=== PATIENT | male | born 1965 | race Caucasian/White ===

== ENCOUNTER 2018-07-23 07:53 | Day surgery (SDC) | payer MEDICARE ==
[~2018-07-23] VITALS: Ht 193 cm; Wt 139.3 kg
[2018-07-23] VITALS (12 sets, daily range): BP systolic 110–170; BP diastolic 57–83
[~2018-07-23 07:53] MED LIST: ALBUTEROL INH; ASP325T PO; ASP325TEC PO; ATOR40TA PO; ATOR80TA2 PO; BPR100T PO; BUDE6HFA IH; CLPD75T; CRV25T PO; CYCL-97 PO; DULO60CA6; DULO60CA6 PO; ESCI20TA2 PO; EZET10TA5 PO; EZET1TAB16; FLUT1DIS26 IH; FURO20TA4 PO; FURO40TA4 PO; GBPN300C PO; GLUC1KIT4 IJ; HYDR-229; INSASP10V; INSU1CAR; KCL20TCR PO; LEVO25TA45 PO; LNS30CCR PO; MELO-195 PO; MELO7.5T PO; METF-380; METO10TA3 PO; MORP30TA28 PO; MS15TCR PO; NOVALOG PUMP SQ; NTR.4SL SL; OXYC-272 PO; POTA10TA36 PO; POTA20TA7 PO; RAMI10CA PO; RAMI10TA PO; RANO10003 PO; RISP1TAB2 PO; RMP5C PO; TRAM200T PO; ZLP10T PO; ZOLP5TAB6 PO
[2018-07-23] MEDS ORDERED: NS IV 1000 ML 1,000 ML ONE (08:08)
[2018-07-23] MEDS ORDERED: LIDOCAINE 1% INJ 20 ML 20 ML VIAL ONE (08:08)
[2018-07-23] MEDS ORDERED: HEParin (CATH LAB) 2,000 ML IV ONE (08:08)
[2018-07-23] MEDS ORDERED: NS IV 1000 ML 1,000 ML IV SCH ×2 (08:16→12:01)
[2018-07-23 08:34] LABS: HEMOGLOBIN 13.9 G/DL (13.3-17.7); MEAN PLATELET VOLUME 9.2 FL (7.4-10.4); RED BLOOD COUNT 4.64 10^6/uL (4.35-5.85); RED CELL DISTRIBUTION WIDTH 13.5 % (10.0-14.5); WHITE BLOOD COUNT 8.6 10^3/uL (4.3-11.0)
--- NOTE | 2018-07-23 08:44 | Diagnostic Imaging Report ---
Indication: Pre-heart catheterization. Time of exam 8:31 AM Correlation is made with prior chest from 10/27/2014. Changes of median sternotomy and CABG are noted. The heart size is stable. Lungs appear to be clear. No infiltrate or failure is seen. No effusion or pneumothorax is detected. Impression: No acute cardiopulmonary process is detected. Dictated by: Dictated on workstation # [id number]
[2018-07-23 08:46] LABS: PROTHROMBIN TIME PATIENT 13.6 SEC (12.2-14.7)
[2018-07-23 08:55] LABS: ALANINE AMINOTRANSFERASE 15 U/L (0-55); ALBUMIN 3.9 GM/DL (3.2-4.5); ALKALINE PHOSPHATASE 60 U/L (40-136); BILIRUBIN,TOTAL 0.5 MG/DL (0.1-1.0); BUN/CREATININE RATIO 17; CALCIUM 8.8 MG/DL (8.5-10.1); CARBON DIOXIDE 27 MMOL/L (21-32); CHLORIDE 108 MMOL/L (98-107); CHOLESTEROL 101 MG/DL (< 200); CREATININE SERUM 0.96 MG/DL (0.60-1.30); GFR ESTIMATED > 60; HDL CHOLESTEROL 35 MG/DL (40-60); POTASSIUM 3.9 MMOL/L (3.6-5.0); SODIUM 143 MMOL/L (135-145); TOTAL PROTEIN 6.9 GM/DL (6.4-8.2); TRIGLYCERIDES 64 MG/DL (<150); VLDL CHOLESTEROL 13 MG/DL (5-40)
[2018-07-23 09:06] LABS: GLUCOSE 50 MG/DL (70-105)
[2018-07-23] MEDS ORDERED: PREG100C PO (09:21)
[2018-07-23] MEDS ORDERED: ZOLP10TA5 PO (09:22)
[2018-07-23] MEDS ORDERED: METO10TA3 PO (09:22)
[2018-07-23] MEDS ORDERED: METO-387 PO (09:23)
[2018-07-23] MEDS ORDERED: LEVO50TA6 PO (09:23)
[2018-07-23] MEDS ORDERED: PANT40TA3 PO (09:24)
[2018-07-23] MEDS ORDERED: VENL37.57 PO (09:24)
[2018-07-23] MEDS ORDERED: LOSA25TA41 PO (09:25)
--- NOTE | 2018-07-23 09:30 | NUR ---
Pts glucose was noted to be 50. Dr. Linares was informed and order to give patient PO juice. Pt was given juice and I will recheck Blood Glucose in 30 mins.
--- OUTSIDE RECORDS SUMMARY | 2018-07-23 09:35 | XMS REPORT ---
Author Author Maribel Vieira [facility] Address [address] [address] [place], [place] [id number] Care Team Providers Care Pigment Processor Name Role Phone Maribel Vieira PCP Elias Malagon Unavailable Unavailable Deborah Linares Unavailable Unavailable Allergies and Adverse Reactions Name Reaction Notes PENICILLINS Plan of Treatment Planned Activity Comments Planned Date Planned Time Plan/Goal Lipid profile 09/06/2015 12:00 AM GENERAL HEALTH PANEL 09/06/2015 12:00 AM PSA TOTAL 09/06/2015 12:00 AM MICROALBUMIN UR RANDOM 07/24/2017 12:00 AM CPK. 07/18/2018 12:00 AM T1DM - insulin pump -current provider retiring needing new provider T1DM - foot exam Medications Active Name Start Date Estimated Completion Date SIG Comments Zetia 10 mg oral tablet take 1 tablet (10 mg) by oral route once daily Neurontin 300 mg oral capsule 10/04/2014 TAKE 2 CAPSULES (600 MG) BY ORAL ROUTE 3 TIMES PER DAY FOR 30 DAYS Neurontin 300 mg oral capsule 03/08/2015 TAKE 2 CAPSULES (600 MG) BY ORAL ROUTE 3 TIMES PER DAY FOR 30 DAYS cyclobenzaprine 10 mg oral tablet 05/10/2015 TAKE 1 TAB BY MOUTH EVERY 8 HOURS NEEDED FOR SPASM. FOR 30 DAYS Ranexa 1,000 mg oral tablet extended release 12 hr 02/01/2016 take 1 tablet (1,000 mg) by oral route 2 times per day ramipril 10 mg oral capsule 02/01/2016 take 1 capsule (10 mg) by oral route once daily ramipril 10 mg oral capsule 05/10/2016 take 1 capsule (10 mg) by oral route once daily ramipril 10 mg oral capsule 07/30/2016 TAKE 1 CAPSULE BY MOUTH ONCE A DAY Protonix 40 mg oral tablet,delayed release (DR/EC) 07/30/2016 take 1 tablet (40 mg) by oral route once daily for 90 days albuterol sulfate 2.5 mg /3 mL (0.083 %) inhalation solution for nebulization 09/28/2016 inhale 3 milliliters (2.5 mg) by nebulization route 4 times per day as needed Voltaren 1 % topical gel 08/07/2017 apply 2 gram to the affected area(s) by topical route 4 times per day Toprol XL 25 mg oral tablet extended release 24 hr take 1 tablet (25 mg ) by oral route once daily Ranexa 1,000 mg oral tablet extended release 12 hr 11/29/2017 TAKE 1 TABLET BY MOUTH TWO TIMES A DAY venlafaxine 37.5 mg oral tablet extended release 24hr 11/29/2017 take 1 tablet (37.5 mg) by oral route once daily in the morning at the same time each day with food levothyroxine 50 mcg oral tablet 02/21/2018 TAKE 1 TABLET BY MOUTH ONCE A DAY atorvastatin 80 mg oral tablet 02/21/2018 TAKE 1 TABLET BY MOUTH ONCE A DAY IN THE EVENING bupropion HCl 100 mg oral tablet 02/24/2018 Take 2 tablets (200 mg) po q am and 1 tablet (100 mg) po q evening furosemide 40 mg oral tablet 02/24/2018 02/19/2019 take 1 tablet (40 mg) by oral route once daily for 90 days furosemide 20 mg oral tablet 02/24/2018 05/20/2019 take 1 tablet (20 mg) by oral route once daily for 90 days metoclopramide HCl 10 mg oral tablet 02/24/2018 Take one tablet po twice BID (am and pm) pantoprazole 40 mg oral tablet,delayed release (DR/EC) 04/18/2018 TAKE 1 TABLET BY MOUTH ONCE A DAY potassium chloride 10 mEq oral tablet extended release 04/18/2018 TAKE 2 TABLETS DAILY IN THE MORNING AND 1 TABLET IN THE EVENING Novolog U-100 Insulin aspart 100 unit/mL subcutaneous solution 04/18/2018 INJECT 160 UNITS DAILY DXE11.43. Ambien 10 mg oral tablet 05/19/2018 take 1 tablet (10 mg) by oral route once daily at bedtime Lyrica 100 mg oral capsule 05/19/2018 08/17/2018 take 1 capsule (100 mg) by oral route 3 times per day for 30 days Percocet 10-325 mg oral tablet 07/09/2018 08/08/2018 take 1 tablet by oral route every 6 hours as needed for 30 days ProAir HFA 90 mcg/actuation inhalation HFA aerosol inhaler 07/09/2018 INHALE 1 - 2 PUFFS BY INHALATION ROUTE EVERY 4-6 HOURS NEEDED Symbicort 160-4.5 mcg/actuation inhalation HFA aerosol inhaler 07/09/2018 INHALE 2 PUFFS TWO TIMES A DAY IN THE MORNING AND IN THE EVENING Name Start Date Expiration Date SIG Comments Neurontin 300 mg oral capsule 03/11/2014 08/08/2014 take 2 capsules (600 mg) by oral route 3 times per day for 30 days cyclobenzaprine 10 mg oral tablet 05/06/2014 11/02/2014 TAKE 1 TAB BY MOUTH EVERY 8 HOURS NEEDED FOR SPASM. for 30 days Voltaren 1 % topical gel 12/23/2014 apply 2 gram to the affected area(s) by topical route 4 times per day Synvisc-One 48 mg/6 mL intra-articular syringe 02/24/2015 inject 6 milliliters by intra-articular route into the left knee Neurontin 300 mg oral capsule 07/04/2015 TAKE 2 CAPSULES (600 MG) BY ORAL ROUTE 3 TIMES PER DAY FOR 30 DAYS cyclobenzaprine 10 mg oral tablet 08/03/2015 TAKE 1 TABLET BY MOUTH EVERY 8 HOURS NEEDED FOR SPASM duloxetine 60 mg oral capsule,delayed release(DR/EC) 10/28/2015 TAKE 1 CAPSULE (60 MG) BY MOUTH 2 TIMES DAILY PATIENT NEEDS TO ESTABLISH WITH NEW PCP BEFORE NEXT REFILL. (06/16/15). Protonix 40 mg oral tablet,delayed release (DR/EC) 11/09/2015 08/05/2016 take 1 tablet (40 mg) by oral route once daily for 90 days doxycycline monohydrate 100 mg oral tablet 06/06/2016 06/13/2016 take 1 tablet by oral route 2 times a day for 7 days doxycycline monohydrate 100 mg oral tablet 09/26/2016 10/03/2016 take 1 tablet by oral route 2 times a day for 7 days prednisone 20 mg oral tablet 09/28/2016 10/03/2016 take 2 tablets (40 mg) by oral route once daily for 5 days Aspirin 325 mg Oral Tablet 05/07/2017 take 1 tablet (325 mg) by oral route once daily aspirin 325 mg oral tablet,delayed release (DR/EC) 05/10/2017 07/09/2017 TAKE 1 TABLET BY MOUTH ONCE A DAY risperidone 0.5 mg oral tablet 05/28/2017 WEAN by 0.5 mg weekly - called to [facility] potassium chloride 10 mEq oral tablet extended release 05/28/2017 05/28/2017 Take 2 tablets daily in the morning and 1 tablet in the evening levothyroxine 50 mcg oral tablet 06/27/2017 09/19/2017 TAKE 1 TABLET BY MOUTH ONCE A DAY Ranexa 1,000 mg oral tablet extended release 12 hr 06/28/2017 12/13/2017 TAKE 1 TABLET BY MOUTH TWO TIMES A DAY doxycycline hyclate 100 mg oral capsule 07/03/2017 take 1 capsule by oral route 2 times a day for 7 days Tamiflu 75 mg oral capsule 07/31/2017 take 1 capsule (75 mg) by oral route 2 times per day for 5 days Tessalon Perles 100 mg oral capsule 08/01/2017 08/01/2017 take 1 capsule (100 mg ) by oral route 3 times per day as needed for cough cephalexin 500 mg oral capsule 12/03/2017 12/10/2017 take 1 capsule (500 mg) by oral route every 12 hours for 7 days Nitrostat 0.4 mg sublingual tablet, sublingual 07/09/2018 07/10/2018 place 1 tablet (0.4 mg) by buccal route at the first sign of an attack; no more than 3 tabs are recommended within a 15 minute period. for 1 day doxycycline monohydrate 100 mg oral capsule 07/09/2018 07/16/2018 take 1 capsule (100 mg) by oral route 2 times per day for 7 days Discontinued Name Start Date Discontinued Date SIG Comments Flexeril 10 mg oral tablet 06/04/2013 take 1 tablet (10 mg) by oral route 3 times per day /PRN Ambien 10 mg oral tablet 08/27/2013 take 1 tablet (10 mg) by oral route once daily at bedtime Lortab 10-500 mg oral tablet 10/09/2012 take 1 tablet by oral route every 6 hours as needed for pain Ultram ER 200 mg oral tablet extended release 24 hr 08/27/2013 take 1 tablet (200 mg) by oral route once daily meloxicam 7.5 mg oral tablet 12/23/2014 take 1 tablet (7.5 mg) by oral route once daily Lasix 20 mg oral tablet 08/27/2013 take 1 tablet (20 mg) by oral route once daily Vytorin 10-80 10-80 mg oral tablet 10/09/2012 take 1 tablet by oral route once daily Altace 5 mg oral capsule 10/09/2012 take 1 capsule (5 mg) by oral route once daily potassium chloride 20 mEq oral tablet,ER particles/crystals 08/27/2013 take 1 tablet (20 meq) by oral route once daily with food Plavix 75 mg oral tablet 10/09/2012 take 1 tablet (75 mg) by oral route once daily MS Contin 30 mg oral tablet extended release 10/28/2014 11/25/2014 take 1 tablet (30 mg) by oral route every 12 hours for 30 days dose decreased gabapentin 300 mg oral capsule 08/11/2015 10/03/2015 TAKE 2 CAPSULES BY MOUTH THREE TIMES DAILY Lasix 20 mg oral tablet 12/07/2015 Take one po q d with the 40 mg tablet for a 60 mg daily dose morphine 30 mg oral tablet extended release 10/19/2015 11/14/2015 take 1 tablet by oral route daily for 30 days at lunch Prevacid 30 mg oral capsule,delayed release(DR/EC) 10/31/2015 11/09/2015 take 1 capsule (30 mg) by oral route once daily before a meal for 90 days morphine 15 mg oral tablet extended release 01/11/2016 02/08/2016 take 1 tablet by oral route daily for 30 days fluticasone 50 mcg/actuation nasal spray,suspension 06/06/2016 04/16/2018 inhale 2 sprays (100 mcg) in each nostril by intranasal route once daily Not taking Synvisc-One 48 mg/6 mL intra-articular syringe 10/01/2016 11/21/2016 inject 6 milliliters by intra-articular route once ramipril 10 mg oral capsule 12/12/2016 01/27/2017 TAKE 1 CAPSULE BY MOUTH ONCE A DAY ACEI cough Ambien 10 mg oral tablet 04/08/2017 05/21/2017 take 1 tablet (10 mg) by oral route once daily at bedtime (for male) for 30 days risperidone 1 mg oral tablet 05/07/2017 05/28/2017 take 2 tablets by oral route daily for 60 days risperidone 2 mg oral tablet 05/10/2017 05/28/2017 TAKE 1 TABLET BY MOUTH ONCE A DAY AT BEDTIME Cymbalta 30 mg oral capsule,delayed release(DR/EC) 06/26/2017 09/11/2017 take 2 capsules (60 mg) by oral route once daily and taper as instructed switch to effexor carvedilol 12.5 mg oral tablet 07/23/2017 11/07/2017 TAKE 1 TABLET (12.5 MG) BY ORAL ROUTE 2 TIMES PER DAY WITH FOOD Ambien 10 mg oral tablet 09/05/2017 09/11/2017 take 1 tablet (10 mg) by oral route once daily at bedtime (for male) Problem List Description Status Onset Congestive Heart Failure Active Depression with Anxiety Active Hypertension Active Insomnia Active Arthritis unspecified Active GERD Active cervical neck pain Active Cervical Radiculopathy Active 01/14/2014 Postlaminectomy syndrome of lumbar region Active 01/14/2014 Sacroiliac joint dysfunction Active 10/06/2014 Radiculopathy, lumbar region Active 04/25/2015 Acquired hypothyroidism Active 09/01/2015 Hyperlipidemia Active 09/01/2015 Type 1 diabetes mellitus with complications Active age 14 Chronic back pain Active 09/01/2015 Chronic kidney disease, stage 3 (moderate) Active Chronic coughing Active 01/27/2017 Diabetic neuropathy associated with type 1 diabetes mellitus Active 07/18/2017 Depression, unspecified depression type Active 07/18/2017 Current every day smoker Active 07/18/2017 COPD (chronic obstructive pulmonary disease) Active 07/18/2017 Cervical pain Active 04/16/2018 Hemiparesis of right dominant side, unspecified hemiparesis etiology Active Vital Signs Date Time BP-Sys(mm[Hg] BP-Ellie(mm[Hg]) HR(bpm) RR(rpm) Temp WT HT HC BMI BSA BMI Percentile O2 Sat(%) 07/09/2018 1:29:00 PM 116 mmHg 70 mmHg 68 bpm 14 rpm 96.8 F 307.75 lbs 97 % 05/14/2018 1:12:00 PM 140 mmHg 82 mmHg 68 bpm 18 rpm 96.8 F 312.75 lbs 76 in 38.0687 kg/m 2.7581 m 97 % 04/16/2018 1:31:00 PM 132 mmHg 64 mmHg 68 bpm 20 rpm 97.7 F 312 lbs 76 in 37.98 kg/m2 2.75 m2 96 % 02/19/2018 1:22:00 PM 140 mmHg 72 mmHg 76 bpm 18 rpm 98.1 F 308.5 lbs 76 in 37.5514 kg/m 2.7393 m 96 % 12/30/2017 1:56:00 PM 132 mmHg 74 mmHg 74 bpm 16 rpm 97.2 F 309.5 lbs 76 in 37.6731 kg/m 2.74 m2 96 % 12/03/2017 1:30:00 PM 142 mmHg 88 mmHg 69 bpm 18 rpm 98.8 F 315.75 lbs 76 in 38.43 kg/m2 2.7713 m 96 % 11/06/2017 1:24:00 PM 136 mmHg 78 mmHg 78 bpm 17 rpm 98.7 F 311.5 lbs 76 in 37.9166 kg/m 2.75 m2 98 % 10/09/2017 1:36:00 PM 116 mmHg 66 mmHg 68 bpm 17 rpm 97.7 F 311.5 lbs 76 in 37.92 kg/m2 2.7525 m 95 % 10/09/2017 1:36:00 PM 116 mmHg 66 mmHg 68 bpm 17 rpm 97.7 F 311.5 lbs 76 in 37.92 kg/m2 2.7525 m 95 % 09/11/2017 1:20:00 PM 132 mmHg 76 mmHg 85 bpm 18 rpm 97.8 F 136.75 lbs 76 in 16.65 kg/m2 1.82 m2 95 % 08/14/2017 1:21:00 PM 136 mmHg 72 mmHg 86 bpm 18 rpm 97.6 F 136.75 lbs 76 in 16.6456 kg/m 1.8238 m 96 % 08/07/2017 1:13:00 PM 131 mmHg 80 mmHg 75 bpm 20 rpm 98.7 F 311 lbs 76 in 37.86 kg/m2 2.75 m2 96 % 07/17/2017 1:21:00 PM 128 mmHg 72 mmHg 78 bpm 17 rpm 97.8 F 316.75 lbs 76 in 38.5556 kg/m 2.7756 m 93 % 06/19/2017 1:45:00 PM 132 mmHg 68 mmHg 77 bpm 20 rpm 69.8 F 310.25 lbs 76 in 37.76 kg/m2 2.75 m2 95 % 06/05/2017 2:51:00 PM 128 mmHg 82 mmHg 73 bpm 18 rpm 97.2 F 314.75 lbs 76 in 38.3122 kg/m 2.7669 m 96 % 05/28/2017 1:49:00 PM 130 mmHg 76 mmHg 72 bpm 18 rpm 97.2 F 315.5 lbs 76 in 38.40 kg/m2 2.77 m2 95 % 05/21/2017 1:36:00 PM 129 mmHg 70 mmHg 62 bpm 16 rpm 97.2 F 319.75 lbs 76 in 38.9208 kg/m 2.7888 m 100 % 02/20/2017 1:32:00 PM 130 mmHg 76 mmHg 72 bpm 17 rpm 97.7 F 312.75 lbs 76 in 38.07 kg/m2 2.76 m2 97 % 01/16/2017 1:31:00 PM 128 mmHg 70 mmHg 76 bpm 17 rpm 97.6 F 206.5 lbs 76 in 25.1357 kg/m 2.2411 m 97 % 12/19/2016 1:41:00 PM 132 mmHg 70 mmHg 71 bpm 18 rpm 97.7 F 306 lbs 76 in 37.25 kg/m2 2.73 m2 96 % 11/21/2016 1:47:00 PM 142 mmHg 74 mmHg 80 bpm 17 rpm 97.6 F 313.25 lbs 76 in 38.1296 kg/m 2.7603 m 95 % 10/26/2016 10:20:00 AM 134 mmHg 72 mmHg 78 bpm 16 rpm 97.7 F 320.25 lbs 76 in 38.98 kg/m2 2.79 m2 96 % 10/04/2016 2:15:00 PM 120 mmHg 70 mmHg 89 bpm 14 rpm 96.1 F 93 % 09/28/2016 10:37:00 AM 118 mmHg 78 mmHg 91 bpm 16 rpm 98.9 F 326 lbs 90 % 09/26/2016 2:14:00 PM 140 mmHg 88 mmHg 80 bpm 14 rpm 97.4 F 329.25 lbs 95 % 08/29/2016 1:18:00 PM 120 mmHg 78 mmHg 68 bpm 12 rpm 97.2 F 329.5 lbs 96 % 07/04/2016 1:22:00 PM 110 mmHg 70 mmHg 79 bpm 14 rpm 96.6 F 316.5 lbs 76 in 38.5252 kg/m 2.7746 m 95 % 06/06/2016 1:46:00 PM 122 mmHg 76 mmHg 75 bpm 16 rpm 96.9 F 313.25 lbs 76 in 38.13 kg/m2 2.76 m2 95 % 05/09/2016 1:53:00 PM 128 mmHg 78 mmHg 74 bpm 14 rpm 96.8 F 311 lbs 76 in 37.8557 kg/m 2.7503 m 98 % 03/07/2016 1:18:00 PM 130 mmHg 88 mmHg 74 bpm 14 rpm 96.4 F 310 lbs 76 in 37.73 kg/m2 2.75 m2 96 % 02/08/2016 1:18:00 PM 120 mmHg 74 mmHg 77 bpm 14 rpm 96.4 F 308.25 lbs 76 in 37.521 kg/m 2.7382 m 96 % 01/11/2016 1:32:00 PM 132 mmHg 58 mmHg 84 bpm 20 rpm 97.2 F 304.5 lbs 75.5 in 37.56 kg/m2 2.71 m2 91 % 12/14/2015 1:17:00 PM 140 mmHg 74 mmHg 73 bpm 20 rpm 97.8 F 308.5 lbs 75.5 in 38.0504 kg/m 2.7302 m 94 % 11/14/2015 1:26:00 PM 116 mmHg 56 mmHg 67 bpm 20 rpm 97.9 F 310 lbs 75.5 in 38.24 kg/m2 2.74 m2 95 % 10/03/2015 1:18:00 PM 134 mmHg 78 mmHg 78 bpm 18 rpm 97 F 308.75 lbs 75.5 in 38.0813 kg/m 2.7313 m 96 % 08/31/2015 1:16:00 PM 116 mmHg 66 mmHg 65 bpm 18 rpm 97.8 F 314 lbs 75.5 in 38.73 kg/m2 2.75 m2 93 % 08/03/2015 1:49:00 PM 132 mmHg 72 mmHg 74 bpm 20 rpm 97 F 315 lbs 75.5 in 38.8521 kg/m 2.7588 m 07/06/2015 1:58:00 PM 110 mmHg 82 mmHg 66 bpm 18 rpm 96.4 F 310.75 lbs 75.5 in 38.33 kg/m2 2.74 m2 05/17/2015 8:53:00 AM 118 mmHg 62 mmHg 64 bpm 18 rpm 97.5 F 315 lbs 75.5 in 38.8521 kg/m 2.7588 m 04/25/2015 8:13:00 AM 122 mmHg 70 mmHg 18 rpm 97.2 F 310 lbs 75.5 in 38.24 kg/m2 2.74 m2 03/28/2015 8:16:00 AM 118 mmHg 78 mmHg 72 bpm 18 rpm 97.3 F 310 lbs 75.5 in 38.2354 kg/m 2.7369 m 02/24/2015 8:20:00 AM 140 mmHg 80 mmHg 80 bpm 18 rpm 96.6 F 315 lbs 75.5 in 38.85 kg/m2 2.76 m2 01/20/2015 1:49:00 PM 128 mmHg 78 mmHg 60 bpm 18 rpm 97 F 315 lbs 75.5 in 38.8521 kg/m 2.7588 m 12/23/2014 8:29:00 AM 134 mmHg 72 mmHg 66 bpm 18 rpm 98.2 F 314 lbs 75.5 in 38.73 kg/m2 2.75 m2 11/25/2014 8:48:00 AM 122 mmHg 64 mmHg 70 bpm 18 rpm 96.6 F 327 lbs 75 in 40.8718 kg/m 2.8016 m 09/29/2014 4:13:00 PM 323 lbs 08/26/2014 8:54:00 AM 128 mmHg 68 mmHg 78 bpm 20 rpm 97.2 F 320 lbs 07/29/2014 9:58:00 AM 138 mmHg 84 mmHg 76 bpm 18 rpm 97.2 F 322 lbs 76 in 39.19 kg/m2 2.7986 m 06/03/2014 9:20:00 AM 110 mmHg 60 mmHg 70 bpm 16 rpm 96 F 320 lbs 75.5 in 39.4688 kg/m 2.78 m2 03/11/2014 9:32:00 AM 128 mmHg 74 mmHg 66 bpm 14 rpm 96.1 F 324 lbs 75.5 in 39.96 kg/m2 2.798 m 02/11/2014 10:04:00 AM 144 mmHg 82 mmHg 60 bpm 16 rpm 97 F 319 lbs 75.5 in 39.3455 kg/m 2.78 m2 01/14/2014 10:04:00 AM 142 mmHg 80 mmHg 72 bpm 16 rpm 96.8 F 323 lbs 75.5 in 39.84 kg/m2 2.7937 m 12/17/2013 9:18:00 AM 124 mmHg 80 mmHg 84 bpm 16 rpm 97 F 319 lbs 75.5 in 39.3455 kg/m 2.78 m2 11/19/2013 10:10:00 AM 160 mmHg 90 mmHg 78 bpm 16 rpm 97 F 321 lbs 75 in 40.12 kg/m2 2.7758 m 10/22/2013 8:54:00 AM 152 mmHg 80 mmHg 84 bpm 18 rpm 96.8 F 332 lbs 75.5 in 40.9489 kg/m 2.83 m2 09/24/2013 8:33:00 AM 134 mmHg 80 mmHg 82 bpm 16 rpm 96 F 322.25 lbs 75.5 in 39.75 kg/m2 2.7904 m 08/27/2013 9:07:00 AM 108 mmHg 60 mmHg 72 bpm 16 rpm 325 lbs 75.5 in 40.0855 kg/m 2.80 m2 07/02/2013 10:25:00 AM 124 mmHg 70 mmHg 64 bpm 16 rpm 94.9 F 328 lbs 75.5 in 40.46 kg/m2 2.8152 m 06/04/2013 8:40:00 AM 150 mmHg 80 mmHg 78 bpm 16 rpm 97.4 F 333.25 lbs 75.5 in 41.1031 kg/m 2.84 m2 10/09/2012 8:33:00 AM 110 mmHg 82 mmHg 84 bpm 18 rpm 96.3 F 315 lbs 75 in 39.37 kg/m2 2.7497 m 05/08/2010 12:54:00 PM 137 mmHg 87 mmHg 96 bpm 18 rpm 96.4 F 309 lbs 04/21/2010 8:55:00 AM 144 mmHg 82 mmHg 92 bpm 18 rpm 95.6 F 312.25 lbs Social History Name Description Comments Tobacco Current every day smoker Lives with friend lives in a house with girlfriend & his children with 2 adult /grown children & has 2[twin ] 16 yr olds at home Former smoker Former quit 7 days ago....smoked x 33 years Has never used alcohol Denies illicit substance abuse disabeled Did not serve in recieving Social Security Disability History of Procedures Date Ordered Description Order Status 06/09/2015 12:00 AM OFFICE/OUTPATIENT VISIT EST Reviewed 09/01/2015 12:00 AM GENERAL HEALTH PANEL Reviewed 09/01/2015 12:00 AM ASSAY OF PSA TOTAL Reviewed 09/01/2015 12:00 AM LIPID PANEL Reviewed 11/14/2015 12:00 AM URNLS DIP STICK/TABLET RGNT AUTO W/O MICROSCOPY Reviewed 11/14/2015 12:00 AM GENERAL HEALTH PANEL Reviewed 12/14/2015 12:00 AM URNLS DIP STICK/TABLET REAGENT AUTO MICROSCOPY Reviewed 02/08/2016 12:00 AM URINALYSIS AUTO W/O SCOPE Reviewed 02/09/2016 4:24 PM URINALYSIS AUTO W/O SCOPE Reviewed 05/10/2016 12:00 AM [facility] MEDICARE - flu vaccine administration Reviewed 05/10/2016 12:00 AM INFLUENZA VACCINE QUADRIVALENT 3 YRS PLUS IM Reviewed 06/07/2016 12:00 AM COMPLETE CBC W/AUTO DIFF WBC Reviewed 06/07/2016 12:00 AM COMPREHEN METABOLIC PANEL Reviewed 06/07/2016 12:00 AM ASSAY OF FERRITIN Reviewed 09/28/2016 12:00 AM CHEST X-RAY 2VW FRONTAL&LATL Reviewed 09/26/2016 12:00 AM UPR/L XTREMITY ART 2 LEVELS Reviewed 10/04/2016 12:00 AM DRAIN/INJ JOINT/BURSA W/O US Reviewed 06/06/2016 12:00 AM CHEST X-RAY 2VW FRONTAL&LATL Reviewed 12/03/2016 12:00 AM ASSAY OF PSA TOTAL Reviewed 12/03/2016 12:00 AM COMPLETE CBC W/AUTO DIFF WBC Reviewed 12/03/2016 12:00 AM GLYCOSYLATED HEMOGLOBIN TEST Reviewed 12/03/2016 12:00 AM ASSAY THYROID STIM HORMONE Reviewed 12/03/2016 12:00 AM COMPREHEN METABOLIC PANEL Reviewed 12/03/2016 12:00 AM COLLECTION VENOUS BLOOD VENIPUNCTURE Reviewed 05/21/2017 12:00 AM COLLECTION VENOUS BLOOD VENIPUNCTURE Reviewed 05/21/2017 12:00 AM ASSAY OF TOTAL TESTOSTERONE Reviewed 05/21/2017 12:00 AM HEPATITIS C AB TEST Reviewed 05/21/2017 12:00 AM [facility] MEDICARE - flu vaccine administration Reviewed 05/21/2017 12:00 AM INFLUENZA VAC 4 VALENT PRSRV FREE 3 YRS PLUS IM Reviewed 07/24/2017 12:00 AM COLLECTION VENOUS BLOOD VENIPUNCTURE Reviewed 07/24/2017 12:00 AM COMPLETE CBC W/AUTO DIFF WBC Reviewed 07/24/2017 12:00 AM COMPREHEN METABOLIC PANEL Reviewed 07/24/2017 12:00 AM ASSAY THYROID STIM HORMONE Reviewed 11/06/2017 12:00 AM GLYCOSYLATED HEMOGLOBIN TEST Reviewed 11/06/2017 12:00 AM COLLECTION VENOUS BLOOD VENIPUNCTURE Reviewed 10/09/2012 12:00 AM DRAIN/INJ JOINT/BURSA W/O US Reviewed 10/09/2012 12:00 AM Kenalog, Per 10 Mg [facility] [place]#[id number] Reviewed 12/30/2017 12:00 AM COMPLETE CBC W/AUTO DIFF WBC Reviewed 12/30/2017 12:00 AM COMPREHEN METABOLIC PANEL Reviewed 12/30/2017 12:00 AM URINALYSIS AUTO W/SCOPE Reviewed 12/30/2017 12:00 AM ASSAY OF MAGNESIUM Reviewed 12/30/2017 12:00 AM COLLECTION VENOUS BLOOD VENIPUNCTURE Reviewed 04/16/2018 12:00 AM X-RAY EXAM NECK SPINE 2-3 VW Returned 04/16/2018 12:00 AM X-RAY EXAM L-S SPINE 2/3 VWS Reviewed 04/16/2018 12:00 AM [facility] MEDICARE - flu vaccine administration Reviewed 04/16/2018 12:00 AM [facility] MEDICARE - pneumonia vaccine administration Reviewed 04/16/2018 12:00 AM INFLUENZA VAC 4 VALENT PRSRV FREE 3 YRS PLUS IM Reviewed 04/16/2018 12:00 AM PNEUMOCOCCAL POLYSAC VACCINE 23-V 2 YRS/>SUBQ/IM Reviewed 05/15/2018 12:00 AM COLLECTION VENOUS BLOOD VENIPUNCTURE Reviewed 05/15/2018 12:00 AM PSA (Screening) Reviewed 05/15/2018 12:[address] LUMBAR SPINE W/DYE Reviewed 09/13/2017 12:00 AM BREATHING CAPACITY TEST Reviewed 09/13/2017 12:00 AM MRI JNT OF LWR EXTRE W/O DYE Reviewed 07/11/2018 12:00 AM COLLECTION VENOUS BLOOD VENIPUNCTURE Reviewed 07/11/2018 12:00 AM COMPLETE CBC W/AUTO DIFF WBC Reviewed 07/11/2018 12:00 AM METABOLIC PANEL TOTAL CA Reviewed 07/11/2018 12:00 AM ASSAY OF MAGNESIUM Reviewed 07/11/2018 12:00 AM CHEST X-RAY 2VW FRONTAL&LATL Reviewed 07/11/2018 12:00 AM ELECTROCARDIOGRAM TRACING Reviewed 07/11/2018 12:00 AM ASSAY OF CK (CPK) Reviewed 07/18/2018 12:00 AM COLLECTION VENOUS BLOOD VENIPUNCTURE Reviewed 07/18/2018 10:08 AM URINALYSIS AUTO W/O SCOPE Reviewed 06/04/2013 12:00 AM Drug Screen (Medicare) Reviewed 11/19/2013 12:00 AM DRAIN/INJ JOINT/BURSA W/O US Reviewed 11/19/2013 12:00 AM INJECTION FOR KNEE X-RAY Reviewed 04/21/2010 12:00 AM MRI LUMBAR SPINE W/O DYE Reviewed 05/08/2010 12:00 AM MRI LUMBAR SPINE W/O DYE Reviewed 02/11/2014 12:00 AM RADIOLOGIC EXAMINATION KNEE 3 VIEWS Reviewed 03/11/2014 12:00 AM DRAIN/INJ JOINT/BURSA W/O US Reviewed 03/11/2014 12:00 AM SYNVISC-ONE, Per 1 Mg (6ml) [facility] [place] [address]-96 Reviewed 05/06/2014 12:00 AM OFFICE/OUTPATIENT VISIT EST Reviewed 06/03/2014 12:00 AM DRAIN/INJ JOINT/BURSA W/O US Reviewed 06/03/2014 12:00 AM SYNVISC-ONE, Per 1 Mg (6ml) [facility] [place] [address]-23 Reviewed 08/26/2014 12:00 AM RADIOLOGIC EXAM SACROILIAC JOINTS 3/MORE VIEWS Reviewed 01/20/2015 12:00 AM DRAIN/INJ JOINT/BURSA W/O US Reviewed 01/20/2015 12:00 AM SYNVISC-ONE, Per 1 Mg (6ml) [facility] [place] [id number] Reviewed 02/24/2015 12:00 AM DRAIN/INJ JOINT/BURSA W/O US Reviewed 02/24/2015 12:00 AM SYNVISC-ONE, Per 1 Mg (6ml) [facility] [place] [id number] Reviewed Results Summary Date and Description Results 01/13/2013 12:00 AM Pneumonia Shot Yes, but Done Elsewhere 08/19/2015 1:09 PM Dialated Eye Exam- Diabetic Done PQRS 14 Diabetic Eye Exam Retinal/Dilated Eye Exam Performed by Eye Prof. PQRS 14 Diabetic Dilated Macular Examination Yes Hgb A1c Fr Bld 7.30 % 08/19/2015 1:11 PM Pneumonia Shot Yes, but Done Elsewhere 09/06/2015 8:10 AM GLUCOSE 261.0 mg/dLSODIUM 136.0 mmol/LPOTASSIUM 4.70 mmol/ LCHLORIDE 101.0 mmol/LCO2 30.0 mmol/LBUN 15.0 mg/dLCREATININE 1.30 mg/dLSGOT/ AST 12.0 IU/LSGPT/ALT 16.0 IU/LALK PHOS 78.0 IU/LTOTAL PROTEIN 6.10 g/dLALBUMIN 3.70 g/dLTOTAL BILI 0.30 mg/dLCALCIUM 8.70 mg/dLAGE 50 GFR NonAA 58 GFR AA 70 eGFR 58 eGFR AA* >60 TRIGLYCERIDES 107.0 mg/dLCHOLESTEROL 101.0 mg/dLHDL 31.0 mg /dLTOT CHOL/HDL 3.3 LDL (CALC) 49.0 mg/dLPSA TOTAL 0.060 ng/mL 11/14/2015 2:14 PM WBC 10.6 RBC 4.41 HGB 13.50 g/dLHCT 41.90 %MCV 95.0 fLMCH 30.60 pgMCHC 32.20 g/dLRDW SD 45 RDW CV 12.80 %MPV 9.80 fLPLT 240 NRBC# 0.00 NRBC% 0.0 %NEUT 60.90 %%LYMP 26.40 %%MONO 9.30 %%EOS 2.20 %%BASO 0.80 %#NEUT 6.44 #LYMP 2.78 #MONO 0.98 #EOS 0.23 #BASO 0.08 MANUAL DIFF NOT IND COLOR YELLOW APPEARANCE CLEAR SPEC GRAV 1.020 pH 5.0 PROTEIN NEGATIVE GLUCOSE NEGATIVE mg/dLKETONE NEGATIVE BILIRUBIN NEGATIVE BLOOD TRACE-INTACT NITRITE NEGATIVE LEUK SCREEN TRACE MICRO INDICATED? SEE BELOW WBC/HPF NEGATIVE RBC/HPF RARE CASTS/LPF NEGATIVE /LPFCRYSTALS NEGATIVE MUCOUS THRDS NEGATIVE BACTERIA NEGATIVE EPITH CELLS NEGATIVE /HPFTRICHOMONAS NEGATIVE YEAST NEGATIVE CULT SET UP? NO GLUCOSE 162.0 mg/dLSODIUM 138.0 mmol/LPOTASSIUM 4.40 mmol/LCHLORIDE 103.0 mmol/LCO2 26.0 mmol/LBUN 22.0 mg/dLCREATININE 1.10 mg/dLSGOT/AST 14.0 IU/ LSGPT/ALT 18.0 IU/LALK PHOS 80.0 IU/LTOTAL PROTEIN 6.80 g/dLALBUMIN 4.30 g/ dLTOTAL BILI 0.40 mg/dLCALCIUM 9.10 mg/dLAGE 50 GFR NonAA 71 GFR AA 86 eGFR >60 mL/min/1.73meGFR AA* >60 TSH 2.810 uIU/mL 12/14/2015 1:57 PM COLOR YELLOW APPEARANCE CLEAR SPEC GRAV 1.020 pH 5.0 PROTEIN NEGATIVE GLUCOSE NEGATIVE mg/dLKETONE NEGATIVE BILIRUBIN NEGATIVE BLOOD TRACE-INTACT NITRITE NEGATIVE [place]UK SCREEN SMALL WBC/HPF 0-5 RBC/HPF 0-5 CASTS/ LPF NEGATIVE /LPFCRYSTALS NEGATIVE MUCOUS THRDS NEGATIVE BACTERIA NEGATIVE EPITH CELLS NEGATIVE /HPFTRICHOMONAS NEGATIVE YEAST NEGATIVE CULT ORDERED YES 01/14/2016 12:00 AM Pneumonia Shot Yes, but Done Elsewhere 02/08/2016 2:30 PM COLOR YELLOW APPEARANCE CLEAR SPEC GRAV 1.010 pH 5.5 PROTEIN NEGATIVE GLUCOSE NEGATIVE mg/dLKETONE NEGATIVE BILIRUBIN NEGATIVE BLOOD TRACE-INTACT NITRITE NEGATIVE LEUK SCREEN NEGATIVE MICRO IND? SEE BELOW WBC/HPF NEGATIVE RBC/HPF RARE CASTS/LPF NEGATIVE /LPFCRYSTALS NEGATIVE MUCOUS THRDS NEGATIVE BACTERIA NEGATIVE EPITH CELLS NEGATIVE /HPFTRICHOMONAS NEGATIVE YEAST NEGATIVE 02/09/2016 4:24 PM Clarity Ur clear Color Ur yellow Glucose Ur-sCnc neg Bilirub Ur Ql Strip neg Ketones Ur Ql Strip neg Sp Gr Ur Qn 1.010 Hgb Ur Ql Strip trace pH Ur-LsCnc 5.5 Prot Ur Ql Strip neg Urobilinogen Ur-mCnc 0.2 Nitrite Ur Ql Strip neg WBC Est Ur Ql Strip trace 04/02/2016 12:00 AM Dialated Eye Exam- Diabetic Done 05/30/2016 12:00 AM Hgb A1c Fr Bld 7.70 % 06/07/2016 9:54 AM WBC 11.4 RBC 4.73 HGB 14.50 g/dLHCT 45.10 %MCV 95.0 fLMCH 30.70 pgMCHC 32.20 g/dLRDW SD 44 RDW CV 12.50 %MPV 9.90 fLPLT 263 NRBC# 0.00 NRBC% 0.0 %NEUT 58.80 %%LYMP 26.80 %%MONO 10.90 %%EOS 2.10 %%BASO 0.70 %#NEUT 6.69 #LYMP 3.05 #MONO 1.24 #EOS 0.24 #BASO 0.08 MANUAL DIFF NOT IND GLUCOSE 200.0 mg/dLSODIUM 137.0 mmol/LPOTASSIUM 4.70 mmol/LCHLORIDE 99.0 mmol/LCO2 27.0 mmol/LBUN 21.0 mg/dLCREATININE 1.30 mg/dLSGOT/AST 11.0 IU/LSGPT/ALT 16.0 IU/ LALK PHOS 68.0 IU/LTOTAL PROTEIN 7.10 g/dLALBUMIN 4.20 g/dLTOTAL BILI 0.50 mg/ dLCALCIUM 9.40 mg/dLAGE 51 GFR NonAA 58 GFR AA 70 eGFR 58 eGFR AA* >60 FERRITIN 94.0 ng/mL 12/03/2016 11:23 AM TSH 2.050 uIU/mLWBC 10.9 RBC 4.40 HGB 13.60 g/dLHCT 41.20 % MCV 94.0 fLMCH 30.90 pgMCHC 33.0 g/dLRDW SD 44 RDW CV 12.90 %MPV 10.50 fLPLT 227 NRBC# 0.00 NRBC% 0.0 %NEUT 69.10 %%LYMP 20.90 %%MONO 8.0 %%EOS 1.20 %%BASO 0.50 %#NEUT 7.50 #LYMP 2.27 #MONO 0.87 #EOS 0.13 #BASO 0.05 MANUAL DIFF NOT IND HGB A1C 7.90 %Est Avg Glucose 180.0 mg/dLPSA TOTAL 0.180 ng/mLGLUCOSE 220.0 mg/ dLSODIUM 137.0 mmol/LPOTASSIUM 4.50 mmol/LCHLORIDE 103.0 mmol/LCO2 27.0 mmol/ LBUN 18.0 mg/dLCREATININE 1.10 mg/dLSGOT/AST 10.0 IU/LSGPT/ALT 11.0 IU/LALK PHOS 64.0 IU/LTOTAL PROTEIN 6.80 g/dLALBUMIN 4.0 g/dLTOTAL BILI 0.40 mg/ dLCALCIUM 9.10 mg/dLAGE 51 GFR NonAA 71 GFR AA 86 eGFR >60 mL/min/1.73meGFR AA * >60 05/21/2017 3:05 PM HEPATITIS C 0.21 Testosterone, Serum 353.0 ng/ dLTestosterone,Free 6.88 ng/dL% Free Testosterone 1.950 % 07/24/2017 3:26 PM GLUCOSE 162.0 mg/dLSODIUM 137.0 mmol/LPOTASSIUM 4.40 mmol/ LCHLORIDE 105.0 mmol/LCO2 28.0 mmol/LBUN 21.0 mg/dLCREATININE 1.10 mg/dLSGOT/ AST 12.0 IU/LSGPT/ALT 14.0 IU/LALK PHOS 71.0 IU/LTOTAL PROTEIN 6.30 g/dLALBUMIN 3.60 g/dLTOTAL BILI <0.3 mg/dLCALCIUM 8.50 mg/dLAGE 52 GFR NonAA 70 GFR AA 85 eGFR >60 mL/min/1.73meGFR AA* >60 WBC 10.2 RBC 4.33 HGB 13.40 g/dLHCT 41.40 % MCV 96.0 fLMCH 30.90 pgMCHC 32.40 g/dLRDW SD 44 RDW CV 12.50 %MPV 10.20 fLPLT 226 NRBC# 0.00 NRBC% 0.0 %NEUT 53.40 %%LYMP 33.30 %%MONO 10.40 %%EOS 2.0 %%BASO 0.40 %#NEUT 5.42 #LYMP 3.38 #MONO 1.06 #EOS 0.20 #BASO 0.04 MANUAL DIFF NOT IND TSH 2.30 uIU/mL 11/06/2017 3:45 PM HGB A1C 7.0 %Est Avg Glucose 154.2 mg/dL 12/30/2017 2:52 PM COLOR YELLOW APPEARANCE CLEAR SPEC GRAV 1.015 pH 5.5 PROTEIN NEGATIVE GLUCOSE NEGATIVE KETONE NEGATIVE BILIRUBIN NEGATIVE BLOOD NEGATIVE NITRITE NEGATIVE LEUK SCREEN NEGATIVE WBC/HPF NEGATIVE RBC/HPF RARE CASTS/LPF NEGATIVE CRYSTALS NEGATIVE MUCOUS THRDS NEGATIVE BACTERIA NEGATIVE EPITH CELLS NEGATIVE TRICHOMONAS NEGATIVE YEAST NEGATIVE CULT SET UP? NO WBC 9.5 RBC 4.63 HGB 14.2 HCT 44.0 MCV 95 MCH 30.7 MCHC 32.3 RDW SD 46 RDW CV 13.2 MPV 10.4 PLT 287 NRBC# 0.00 NRBC% 0.0 %NEUT 56.3 %LYMP 31.1 %MONO 9.5 %EOS 2.2 %BASO 0.4 # NEUT 5.36 #LYMP 2.96 #MONO 0.91 #EOS 0.21 #BASO 0.04 MANUAL DIFF NOT IND GLUCOSE 122 SODIUM 139 POTASSIUM 4.4 CHLORIDE 104 CO2 27 BUN 16 CREATININE 1.1 SGOT/AST 14 SGPT/ALT 15 ALK PHOS 84 TOTAL PROTEIN 7.3 ALBUMIN 4.3 TOTAL BILI 0.5 CALCIUM 9.6 AGE 52 GFR NonAA 70 GFR AA 85 eGFR 70 eGFR AA* >60 MAGNESIUM 2.3 05/15/2018 2:28 PM PSA TOTAL 0.13 07/11/2018 8:43 AM WBC 7.6 RBC 4.81 HGB 14.7 HCT 44.9 MCV 93 MCH 30.6 MCHC 32.7 RDW SD 44 RDW CV 12.8 MPV 9.9 PLT 234 NRBC# 0.00 NRBC% 0.0 %NEUT 51.6 % LYMP 34.6 %MONO 10.6 %EOS 2.4 %BASO 0.5 #NEUT 3.92 #LYMP 2.62 #MONO 0.80 #EOS 0.18 #BASO 0.04 MANUAL DIFF NOT IND GLUCOSE 134 SODIUM 141 POTASSIUM 4.2 CHLORIDE 107 CO2 27 BUN 14 CREATININE 1.1 CALCIUM 8.9 AGE 53 GFR NonAA 70 GFR AA 85 eGFR 70 eGFR AA* >60 MAGNESIUM 2.3 CPK 289 07/18/2018 10:08 AM Clarity Ur clear Color Ur yellow Glucose Ur-sCnc 250 Bilirub Ur Ql Strip negative Ketones Ur Ql Strip negative Sp Gr Ur Qn 1.020 Hgb Ur Ql Strip small pH Ur-LsCnc 6.0 Prot Ur Ql Strip negative Urobilinogen Ur- mCnc 0.2 Nitrite Ur Ql Strip negative WBC Est Ur Ql Strip negative History Of Immunizations Name Date Admin Mfg Name Mfg Code Trade Name Lot# Route Inj Vis Given Vis Pub CVX Influenza 05/10/2016 sanofi pasteur PMC Fluzone Quadrivalent [id number] Intramuscular Left Upper Arm 05/10/2016 02/04/2015 141 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/2013 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 MSD PNEUMOVAX 23 [id number] Intramuscular Right Deltoid 04/16/2018 07/01/2018 33 History of Past Illness Name Date of Onset Comments Arthritis unspecified Angina Arrhythmia Congestive Heart Failure Coronary artery disease PTCA December 2014 - normal Hypertension Myocardial Infarction Depression with Anxiety GERD Insomnia cervical neck pain Cervical Radiculopathy 01/14/2014 Postlaminectomy syndrome of lumbar region 01/14/2014 Lumbago Oct 22 2010 8:56AM Muscle Spasm Apr 21 2010 8:56AM Lumbago May 08 2010 12:57PM Muscle Spasm May 08 2010 12:57PM Sacroiliac joint dysfunction 10/06/2014 Radiculopathy, lumbar region 04/25/2015 Diabetes mellitus type 1 Age Onset 14Novolog insulin per Medtronic pumpRoutine visits with endocrinology - Elias Malagon NP Acquired hypothyroidism 09/01/2015 Hyperlipidemia 09/01/2015 Type 1 diabetes mellitus with complications age 14 Chronic back pain 09/01/2015 Chronic kidney disease, stage 3 (moderate) Chronic coughing 01/27/2017 improved with holding ACEIstill recommend smoking cessationAppt with cardiology upcoming I'm not changing to ARB at this time - want to give it another few weeks to see if indeed ACEI was source. Plan is to add ARB in the future Diabetic neuropathy associated with type 1 diabetes mellitus 07/18/2017 Depression, unspecified depression type 07/18/2017 Current every day smoker 07/18/2017 COPD (chronic obstructive pulmonary disease) 07/18/2017 Cervical pain 04/16/2018 s/p acdf 2013 Hemiparesis of right dominant side, unspecified hemiparesis etiology 2018 Osteoarthrosis, lower leg Oct 09 2012 9:26AM Radiculopathy, lumbosacral Oct 09 2012 8:38AM Cervical Radiculopathy Oct 09 2012 8:38AM Pain in joint; Knee Left Oct 09 2012 8:38AM Drug dependence; opioid type dependence; continuous Jun 04 2013 10:39AM Radiculopathy, lumbosacral Jun 04 2013 8:42AM Cervical Radiculopathy Jun 04 2013 8:42AM Postlaminectomy syndrome of lumbar region Jun 04 2013 8:42AM Radiculopathy, lumbosacral Jul 02 2013 10:31AM Postlaminectomy syndrome of lumbar region Jul 02 2013 10:31AM Cervical Radiculopathy Jul 02 2013 10:31AM Radiculopathy, lumbosacral Aug 27 2013 9:19AM Postlaminectomy syndrome of lumbar region Aug 27 2013 9:19AM Cervical Radiculopathy Aug 27 2013 9:19AM Radiculopathy, lumbosacral Sep 24 2013 8:39AM Postlaminectomy syndrome of lumbar region Sep 24 2013 8:39AM Cervical Radiculopathy Sep 24 2013 8:39AM Radiculopathy, lumbosacral Oct 22 2013 9:02AM Postlaminectomy syndrome of lumbar region Oct 22 2013 9:02AM Cervical Radiculopathy Oct 22 2013 9:02AM Radiculopathy, lumbosacral Nov 19 2013 10:12AM Postlaminectomy syndrome of lumbar region Nov 19 2013 10:12AM Cervical Radiculopathy Nov 19 2013 10:12AM Chronic Left Osteoarthritis, knee Nov 19 2013 12:47PM Pain, knee Nov 19 2013 12:47PM Radiculopathy, lumbosacral Dec 17 2013 9:22AM Postlaminectomy syndrome of lumbar region Dec 17 2013 9:22AM Cervical Radiculopathy Dec 17 2013 9:22AM Radiculopathy, lumbosacral Jan 14 2014 10:08AM Postlaminectomy syndrome of lumbar region Jan 14 2014 10:08AM Cervical Radiculopathy Jan 14 2014 10:08AM Radiculopathy, lumbosacral Feb 11 2014 10:05AM Postlaminectomy syndrome of lumbar region Feb 11 2014 10:05AM Cervical Radiculopathy Feb 11 2014 10:05AM Pain in joint; Knee Left Feb 11 2014 10:05AM Right Knee Pain Feb 11 2014 10:05AM Radiculopathy, lumbosacral Sep 2013 9:48AM Postlaminectomy syndrome of lumbar region Mar 11 2014 9:48AM Cervical Radiculopathy Sep 2013 9:48AM Pain in joint; Knee Left Sep 2013 9:48AM Right Knee Pain Sep 11 2013 9:48AM Right Osteoarthritis, knee Worsening Sep 2013 11:45AM Moderate Right Pain, knee Sep 11 2013 11:45AM Spondylosis, 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 Apr 08 2014 9:06AM Chronic pain syndrome Apr 08 2014 9:06AM Lumbago Apr 08 2014 9:06AM Pain in joint; pelvic region and thigh May 06 2014 9:15AM Cervical Radiculopathy May 06 2014 9:15AM Postlaminectomy syndrome of lumbar region May 06 2014 9:15AM Radiculopathy, lumbosacral May 06 2014 9:15AM Chronic Back Pain May 06 2014 9:15AM Radiculopathy, lumbosacral Jun 03 2014 9:22AM Postlaminectomy syndrome of lumbar region Jun 03 2014 9:22AM Cervical Radiculopathy Jun 03 2014 9:22AM Pain in joint; Knee Left Jun 03 2014 9:22AM Right Knee Pain Jun 03 2014 9:22AM Chronic Left Osteoarthritis, knee Jun 03 2014 10:12AM Pain, knee Jun 03 2014 10:12AM Chronic pain syndrome Jun 29 2014 9:35AM Chronic pain syndrome Jul 29 2014 10:00AM Radiculopathy, lumbosacral Aug 26 2014 9:01AM Postlaminectomy syndrome of lumbar region Aug 26 2014 9:01AM Cervical Radiculopathy Aug 26 2014 9:01AM Pain in joint; Knee Left Aug 26 2014 9:01AM Right Knee Pain Aug 26 2014 9:01AM Sacroiliac dysfunction Aug 26 2014 9:01AM Chronic pain syndrome Sep 29 2014 4:27PM Sacroiliac joint dysfunction Oct 06 2014 12:36PM Chronic pain syndrome Oct 21 2014 8:36AM Radiculopathy, lumbosacral Nov 25 2014 8:51AM Postlaminectomy syndrome of lumbar region Nov 25 2014 8:51AM Cervical Radiculopathy Nov 25 2014 8:51AM Pain in joint; Knee Left Nov 25 2014 8:51AM Right Knee Pain Nov 25 2014 8:51AM Radiculopathy, lumbosacral Dec 23 2014 8:32AM Postlaminectomy syndrome of lumbar region Dec 23 2014 8:32AM Cervical Radiculopathy Dec 23 2014 8:32AM Pain in joint; Knee Left Dec 23 2014 8:32AM Right Knee Pain Dec 23 2014 8:32AM Muscle strain Dec 23 2014 8:32AM Left Osteoarthritis, knee Worsening Jan 20 2015 1:29PM Moderate Left Pain, knee Jan 20 2015 1:29PM Right Osteoarthritis, knee Worsening Feb 24 2015 8:21AM Moderate Chronic Right Pain, knee Feb 24 2015 8:21AM Radiculopathy, lumbosacral Mar 28 2015 8:22AM Postlaminectomy syndrome of lumbar region Mar 28 2015 8:22AM Cervical Radiculopathy Mar 28 2015 8:22AM Pain in joint; Knee Left Mar 28 2015 8:22AM Right Knee Pain Mar 28 2015 8:22AM Muscle strain Mar 28 2015 8:22AM Postlaminectomy syndrome of lumbar region Apr 25 2015 8:19AM Pain in joint; Knee Left Apr 25 2015 8:19AM Right Knee Pain Apr 25 2015 8:19AM Radiculopathy, lumbar region Apr 25 2015 8:19AM Postlaminectomy syndrome of lumbar region May 17 2015 8:59AM Pain in joint; Knee Left May 17 2015 8:59AM Right Knee Pain May 17 2015 8:59AM Radiculopathy, lumbar region May 17 2015 8:59AM Chronic pain syndrome Jun 09 2015 8:22AM Essential Hypertension Jul 06 2015 2:01PM Hyperlipidemia Jul 06 2015 2:01PM Congestive Heart Failure Jul 06 2015 2:01PM Radiculopathy, lumbar region Jul 06 2015 2:01PM Chronic Back Pain Jul 06 2015 2:01PM Type 1 diabetes mellitus with complications Jul 06 2015 2:01PM Postlaminectomy syndrome of lumbar region Aug 03 2015 1:55PM Radiculopathy, lumbar region Aug 03 2015 1:55PM Chronic Back Pain Aug 03 2015 1:55PM Essential Hypertension Aug 31 2015 1:18PM Hyperlipidemia Aug 31 2015 1:18PM Congestive Heart Failure Aug 31 2015 1:18PM Radiculopathy, lumbar region Aug 31 2015 1:18PM Chronic Back Pain Aug 31 2015 1:18PM Type 1 diabetes mellitus with complications Aug 31 2015 1:18PM Acquired hypothyroidism Aug 31 2015 1:18PM Screening for prostate cancer Aug 31 2015 1:18PM Acquired hypothyroidism Oct 03 2015 1:23PM Postlaminectomy syndrome of lumbar region Oct 03 2015 1:23PM Radiculopathy, lumbar region Oct 03 2015 1:23PM Chronic Back Pain Oct 03 2015 1:23PM Congestive Heart Failure Nov 03 2015 11:37AM Hypertension Nov 03 2015 11:37AM Diabetes Mellitus, Type II Nov 03 2015 11:37AM Hyperlipidemia Nov 03 2015 11:37AM Hypothyroidism, Acquired Nov 03 2015 11:37AM Nausea and vomiting, unspecified intactability, vomiting of unspecified type Nov 14 2015 1:28PM Acquired hypothyroidism Nov 14 2015 1:28PM Acquired hypothyroidism Nov 14 2015 1:28PM Postlaminectomy syndrome of lumbar region Nov 14 2015 1:28PM Radiculopathy, lumbar region Nov 14 2015 1:28PM Chronic Back Pain Nov 14 2015 1:28PM Hematuria Dec 14 2015 1:56PM Postlaminectomy syndrome of lumbar region Dec 14 2015 1:20PM Radiculopathy, lumbar region Dec 14 2015 1:20PM Chronic Back Pain Dec 14 2015 1:20PM Postlaminectomy syndrome of lumbar region Jan 11 2016 1:33PM Radiculopathy, lumbar region Jan 11 2016 1:33PM Chronic Back Pain Jan 11 2016 1:33PM Postlaminectomy syndrome of lumbar region Feb 08 2016 1:22PM Radiculopathy, lumbar region Feb 08 2016 1:22PM Chronic Back Pain Feb 08 2016 1:22PM Chronic back pain Feb 08 2016 3:31PM Postlaminectomy syndrome of lumbar region May 09 2016 1:56PM Radiculopathy, lumbar region May 09 2016 1:56PM Dorsalgia, unspecified May 09 2016 1:56PM Other chronic pain May 09 2016 1:56PM Flu Vaccine May 10 2016 7:36AM Cough Jun 06 2016 1:54PM Cough Jun 07 2016 8:19AM Back pain Jun 07 2016 8:19AM Radiculopathy, lumbar region Jul 04 2016 1:24PM Dorsalgia, unspecified Jul 04 2016 1:24PM Other chronic pain Jul 04 2016 1:24PM Hypertension Aug 01 2016 10:14AM CAD (coronary artery disease) Aug 01 2016 10:14AM Radiculopathy, lumbar region Aug 29 2016 1:20PM Dorsalgia, unspecified Aug 29 2016 1:20PM Other chronic pain Aug 29 2016 1:20PM Chronic obstructive pulmonary disease with acute exacerbation Sep 28 2016 10: 40AM Dorsalgia, unspecified Sep 26 2016 2:17PM Other chronic pain Sep 26 2016 2:17PM Sacroiliac joint dysfunction Sep 26 2016 2:17PM Type 1 diabetes mellitus with complications Sep 26 2016 2:17PM Primary osteoarthritis of both knees Sep 26 2016 2:17PM Claudication of both lower extremities Sep 26 2016 2:17PM Pain in left knee Oct 04 2016 2:17PM Other chronic pain Oct 04 2016 2:17PM Primary osteoarthritis of left knee Oct 04 2016 2:17PM Dorsalgia, unspecified Feb 08 2016 1:22PM Other chronic pain Feb 08 2016 1:22PM Postlaminectomy syndrome of lumbar region Mar 07 2016 1:20PM Radiculopathy, lumbar region Mar 07 2016 1:20PM Dorsalgia, unspecified Mar 07 2016 1:20PM Other chronic pain Mar 07 2016 1:20PM Dorsalgia, unspecified Oct 26 2016 10:25AM Other chronic pain Oct 26 2016 10:25AM Dorsalgia, unspecified Jun 06 2016 1:54PM Other chronic pain Jun 06 2016 1:54PM Chronic obstructive pulmonary disease with acute exacerbation Jun 06 2016 1: 54PM Dorsalgia, unspecified Nov 21 2016 1:51PM Other chronic pain Nov 21 2016 1:51PM Postlaminectomy syndrome of lumbar region Nov 21 2016 1:51PM Diabetes mellitus type 1 Dec 03 2016 3:57PM Prostate cancer screening Dec 03 2016 3:57PM Hypothyroidism, acquired Dec 03 2016 3:57PM Chronic kidney disease Dec 03 2016 3:57PM Dorsalgia, unspecified Dec 19 2016 1:42PM Other chronic pain Dec 19 2016 1:42PM Postlaminectomy syndrome of lumbar region Dec 19 2016 1:42PM Chronic Obstructive Pulmonary Disease Dec 19 2016 1:42PM Chronic coughing Dec 19 2016 1:42PM Dorsalgia, unspecified Jan 16 2017 1:37PM Other chronic pain Jan 16 2017 1:37PM Postlaminectomy syndrome of lumbar region Jan 16 2017 1:37PM Chronic Obstructive Pulmonary Disease Jan 16 2017 1:37PM Chronic coughing Jan 16 2017 1:37PM Dorsalgia, unspecified Feb 20 2017 1:34PM Other chronic pain Feb 20 2017 1:34PM Chronic Obstructive Pulmonary Disease Feb 20 2017 1:34PM Chronic coughing Feb 20 2017 1:34PM Testosterone deficiency May 21 2017 3:04PM Flu Vaccine May 21 2017 3:04PM Hepatitis C May 21 2017 3:04PM Flu Vaccine May 21 2017 5:47PM Dorsalgia, unspecified Jul 17 2017 1:29PM Other chronic pain Jul 17 2017 1:29PM Depression, unspecified depression type Jul 17 2017 1:29PM Type 1 diabetes mellitus with diabetic neuropathy, unspecified Jul 17 2017 1: 29PM COPD (chronic obstructive pulmonary disease) Jul 17 2017 1:29PM Current every day smoker Jul 17 2017 1:29PM Acquired hypothyroidism Jul 24 2017 10:45AM Type 1 diabetes mellitus with diabetic neuropathy, unspecified Jul 24 2017 10: 45AM Chronic kidney disease, stage 3 (moderate) Jul 24 2017 10:45AM Unspecified injury of right lower leg, subsequent encounter Sep 11 2017 1: 21PM Current every day smoker Sep 11 2017 1:21PM Sprain of unspecified site of right knee, subsequent encounter Aug 07 2017 1: 14PM Dorsalgia, unspecified Nov 06 2017 1:29PM Other chronic pain Nov 06 2017 1:29PM Type 1 diabetes mellitus with diabetic neuropathy, unspecified Nov 06 2017 1: 29PM Cervical Radiculopathy Dec 03 2017 1:32PM Dorsalgia, unspecified Dec 03 2017 1:32PM Other chronic pain Dec 03 2017 1:32PM Skin infection Dec 03 2017 1:32PM Muscle cramps Dec 30 2017 2:44PM Fatigue Dec 30 2017 2:44PM Chest pain, unspecified type Dec 30 2017 2:44PM Dorsalgia, unspecified Feb 19 2018 1:25PM Other chronic pain Feb 19 2018 1:25PM Postlaminectomy syndrome of lumbar region Feb 19 2018 1:25PM Chronic depression May 28 2017 1:50PM Chronic depression Jun 05 2017 2:56PM Chronic depression Jun 19 2017 1:52PM Hand injury, right, initial encounter Jun 05 2017 2:56PM Dorsalgia, unspecified Jun 19 2017 1:52PM Other chronic pain Jun 19 2017 1:52PM Type 2 diabetes mellitus with diabetic neuropathy, unspecified Jun 19 2017 1: 52PM Dorsalgia, unspecified Apr 16 2018 1:34PM Other chronic pain Apr 16 2018 1:34PM Radiculopathy, lumbar region Apr 16 2018 1:34PM Cervical pain Apr 16 2018 1:34PM Radiculopathy, lumbosacral Apr 16 2018 1:34PM Flu Vaccine Apr 16 2018 4:47PM Pneumonia vaccine Apr 16 2018 4:47PM Laboratory examination May 15 2018 10:42AM Lumbar radiculopathy May 15 2018 10:42AM Fusion of lumbar spine May 15 2018 10:42AM Dorsalgia, unspecified May 14 2018 1:14PM Other chronic pain May 14 2018 1:14PM Postlaminectomy syndrome of lumbar region May 14 2018 1:14PM Radiculopathy, lumbar region May 14 2018 1:14PM Cervical pain May 14 2018 1:14PM Radiculopathy, lumbosacral May 14 2018 1:14PM Dorsalgia, unspecified Aug 14 2017 1:24PM Other chronic pain Aug 14 2017 1:24PM Depression, unspecified depression type Aug 14 2017 1:24PM Type 1 diabetes mellitus with diabetic neuropathy, unspecified Aug 14 2017 1: 24PM COPD (chronic obstructive pulmonary disease) Aug 14 2017 1:24PM Current every day smoker Aug 14 2017 1:24PM Dorsalgia, unspecified Sep 11 2017 1:21PM Other chronic pain Sep 11 2017 1:21PM Dorsalgia, unspecified Oct 09 2017 1:44PM Other chronic pain Oct 09 2017 1:44PM Chest pain, unspecified type Jul 09 2018 1:32PM COPD (chronic obstructive pulmonary disease) Jul 09 2018 1:32PM Current every day smoker Jul 09 2018 1:32PM Right acute serous otitis media, recurrence not specified Jul 09 2018 1:32PM Hemiparesis of right dominant side, unspecified hemiparesis etiology Jul 09 2018 1:32PM Chest pain Jul 11 2018 8:34AM Myalgia Jul 11 2018 8:34AM Chest pain Jul 17 2018 4:28PM Myalgia Jul 17 2018 4:28PM Elevated CPK Jul 17 2018 4:28PM Payers Insurance Name Company Name Plan Name Plan Number Policy Number Policy Group Number Start Date Medicare RHC Medicare RHC [id number] Saturday, 2001 Medicare Part B Medicare [place] [id number] Saturday, 2001 Medicare Part A Medicare Part A [id number] Saturday, 2001 Medicare RHC Medicare RHC [id number] Saturday, 2001 Medicare Part A Medicare - Lab/Xray [id number] Saturday, December 29, 2001 History of Encounters Visit Date Visit Type Provider 07/18/2018 Laboratory Maribel GUARDADO 07/11/2018 Laboratory Maribel GUARDADO 07/09/2018 Office visit Maribel GUARDADO 05/15/2018 Laboratory Maribel GUARDADO 05/14/2018 Office visit Maribel GUARDADO 04/16/2018 Office visit Maribel GUARDADO 02/19/2018 Office visit Maribel GUARDADO 12/30/2017 Office visit Maribel GUARDADO 12/03/2017 Office visit Maribel GUARDADO 11/06/2017 Office visit Maribel GUARDADO 10/09/2017 Office visit Maribel GUARDADO 09/26/2017 [facility] Rosendo Marina MD 09/11/2017 Office visit Maribel GUARDADO 08/14/2017 Office visit Maribel GUARDADO 08/07/2017 Office visit Maribel Faith Dariel [employer] 07/24/2017 Laboratory Maribel Vieira [employer]GE[employer] 07/17/2017 Office visit Maribel ValCharley Dariel ROBERTSP 06/19/2017 Office visit Maribel Faith Dariel ROBERTSP 06/05/2017 Office visit Maribel Vieira [employer]ICE [employer]GEANT 05/28/2017 Office visit Maribel Faith Dariel [employer]ICE [employer]GEANT 05/21/2017 Office visit Maribel ValCharley Dariel ROBERTSP 02/20/2017 Office visit Maribel ValCharley Dariel ROBERTSP 01/16/2017 Office visit Maribel Faith Dariel [employer]GEANT 12/19/2016 Office visit Maribel Faith Dariel [employer]GE[employer] 12/03/2016 Laboratory Maribel M. Dariel [employer] 11/21/2016 Office visit Maribel ValCharley Dariel ROBERTSP 10/26/2016 Office visit Maribel M. Dariel ROBERTSP 10/04/2016 Office visit Maribel Faith Dariel ROBERTSP 09/28/2016 Office visit Maribel Faith Dariel ROBERTSP 09/26/2016 Office visit Maribel ROBERTSP 08/29/2016 Office visit Maribel Vianney ROBERTSP 08/01/2016 Laboratory Maribel Faith Dariel ROBERTSP 07/04/2016 Office visit Maribel Faith Dariel ROBERTSP 06/07/2016 Laboratory Maribel M. Dariel ROBERTSP 06/06/2016 Office visit Maribel Vianney ROBERTSP 05/09/2016 Office visit Maribel Vianney ROBERTSP 03/07/2016 Office visit Maribel Faith Dariel ROBERTSP 02/08/2016 Office visit Maribel Vianney ROBERTSP 01/11/2016 Office visit Maribel ROBERTSP 12/14/2015 Office visit Maribel ROBERTSP 11/14/2015 Office visit Maribel ROBERTSP 10/03/2015 Office visit Maribel ROBERTSP 09/06/2015 Laboratory Maribel ValCharley Dariel ROBERTSP 08/31/2015 Office visit Maribel ROBERTSP 08/03/2015 Office visit Maribel ROBERTSP 07/06/2015 Office visit Maribel ROBERTSP 06/09/2015 Nurse visit Maribel ROBERTSP 05/17/2015 Office visit Maribel ROBERTSP 04/25/2015 Office visit Maribel ROBERTSP 03/28/2015 Office visit Maribel ROBERTSP 02/24/2015 Office visit Maribel ROBERTSP 01/20/2015 Office visit Maribel M. Dariel ROBERTSP 12/23/2014 Office visit Maribel ValCharley Dariel ROBERTSP 11/25/2014 Office visit Maribel Faith Dariel ROBERTSP 10/21/2014 Nurse visit Maribel Faith Dariel ROBERTSP 09/29/2014 Office visit Maribel Faith Dariel ROBERTSP 08/26/2014 Office visit Maribel ValCharley Dariel ROBERTSP 07/29/2014 Nurse visit Maribel ValCharley Dariel ROBERTSP 06/29/2014 Nurse visit Maribel Faith Dariel ROBERTSP 06/03/2014 Office visit Maribel ValCharley Dariel ROBERTSP 05/06/2014 Nurse visit Maribel ValCharley Dariel ROBERTSP 04/08/2014 Nurse visit Maribel ValCharley Dariel ROBERTSP 03/11/2014 Office visit Maribel ValCharley Dariel ROBERTSP 02/11/2014 Office visit Maribel ValCharley Dariel ROBERTSP 01/14/2014 Office visit Maribel M. Dariel ROBERTSP 12/17/2013 Office visit Maribel ROBERTSP 11/19/2013 Office visit Maribel ROBERTSP 10/22/2013 Office visit Maribel ROBERTSP 09/24/2013 Office visit Maribel ROBERTSP 08/27/2013 Office visit Maribel ROBERTSP 07/02/2013 Office visit Maribel ROBERTSP 06/04/2013 Office visit Maribel ROBERTSP 10/09/2012 Office visit Lloyd Oviedo MD 05/08/2010 Office visit Lloyd Oviedo MD 04/21/2010 Office visit Lloyd Oviedo MD
--- OUTSIDE RECORDS SUMMARY | 2018-07-23 09:37 | XMS REPORT ---
Author Author Maribel Vieira [facility] Address [address] [facility] [address] [place], [place] [id number] Care Team Providers Care Chief Of Pediatric Urology Name Role Phone Maribel Vieira PCP Elias [...] by 0.5 mg weekly - called to [facility] potassium chloride 10 mEq oral tablet [...] rpm 97.7 F 312 lbs 76 in 37.9774 kg/m 2.75 m2 96 % 02/19/2018 1:22:00 PM 140 mmHg 72 mmHg 76 bpm 18 rpm 98.1 F 308.5 lbs 76 in 37.55 kg/m2 2.7393 m 96 % 12/30/2017 1:56:00 PM [...] C AB TEST Reviewed 05/21/2017 12:00 AM [facility] MEDICARE - flu vaccine administration Reviewed 05/21/2017 [...] 10/09/2012 12:00 AM Kenalog, Per 10 Mg [facility]#4123-8441-33 Reviewed 12/30/2017 12:00 AM COMPLETE CBC W/AUTO [...] 12:00 AM SYNVISC-ONE, Per 1 Mg (6ml) [facility] [address]-80 Reviewed 05/06/2014 12:00 AM OFFICE/OUTPATIENT VISIT EST Reviewed 06/03/2014 12:00 AM DRAIN/INJ JOINT/BURSA W/O US Reviewed 06/03/2014 12:00 AM SYNVISC-ONE, Per 1 Mg (6ml) [facility] [address]-80 Reviewed 08/26/2014 12:00 AM RADIOLOGIC EXAM SACROILIAC JOINTS 3/MORE VIEWS Reviewed 01/20/2015 12:00 AM DRAIN/INJ JOINT/BURSA W/O US Reviewed 01/20/2015 12:00 AM SYNVISC-ONE, Per 1 Mg (6ml) [facility] [address]-93 Reviewed 02/24/2015 12:00 AM DRAIN/INJ JOINT/BURSA W/O US Reviewed 02/24/2015 12:00 AM SYNVISC-ONE, Per 1 Mg (6ml) [facility] [address]-52 Reviewed Results Summary Date and Description Results [...] Influenza 05/10/2016 sanofi pasteur PMC Fluzone Quadrivalent [id number] Intramuscular Left Upper Arm 05/10/2016 02/04/2015 141 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/2013 Unknown cylinder grinder UNK Unknown 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 Unknown 06/21/2016 07/01/2018 33 Influenza 05/21/2017 sanofi pasteur PMC FLUZONE [id number] Intramuscular Left Arm 05/22/2017 01/24/2011 158 Influenza 04/16/2018 ID [id number] BCQ Flulaval quadrivalent [id number] Intramuscular Left Deltoid 04/16/2018 07/01/2018 158 Pneumococcal 04/16/2018 Merck & Co., Inc. MSD PNEUMOVAX 23 [id number] Intramuscular Right Deltoid 04/16/2018 07/01/2018 33 History [...] Number Start Date Medicare RHC Medicare RHC [id number] Saturday, 2001 Medicare Part B Medicare Of [place] [id number] Saturday, 2001 Medicare Part A Medicare Part A [id number] Saturday, 2001 Medicare RHC Medicare RHC [id number] Saturday, 2001 Medicare Part A Medicare - Lab/Xray [id number] Saturday, December 29, 2001 History of Encounters [...] GUARDADO 10/09/2017 Office visit Maribel GUARDADO 09/26/2017 [facility] Rosendo Marina MD 09/11/2017 Office visit Maribel GUARDADO 08/14/2017 Office visit Maribel GUARDADO 08/07/2017 Office visit Maribel Faith Dariel PROFESSOR OF ENVIRONMENTAL ENGINEERING 07/24/2017 Laboratory Maribel Vieira PROFESSOR OF ENVIRONMENTAL ENGINEERING 07/17/2017 Office visit Maribel ValCharley Dariel ROBERTSP 06/19/2017 Office visit Maribel Faith Dariel ROBERTSP 06/05/2017 Office visit Maribel Vieira PROFESSOR OF ENVIRONMENTAL ENGINEERING 05/28/2017 Office visit Maribel Faith Dariel PROFESSOR OF ENVIRONMENTAL ENGINEERING 05/21/2017 Office visit Maribel ValCharley Dariel ROBERTSP 02/20/2017 Office visit Maribel ValCharley Dariel ROBERTSP 01/16/2017 Office visit Maribel Faith Dareil PROFESSOR OF ENVIRONMENTAL ENGINEERING 12/19/2016 Office visit Maribel Faith Dariel PROFESSOR OF ENVIRONMENTAL ENGINEERING 12/03/2016 Laboratory Maribel M. Dariel PROFESSOR OF ENVIRONMENTAL ENGINEERING 11/21/2016 Office visit Maribel ValCharley Dariel ROBERTSP [...] visit Maribel Vianney ROBERTSP 01/11/2016 Office visit Mraibel ROBERTSP 12/14/2015 Office visit Maribel ROBERTSP 11/14/2015 [...] Dariel ROBERTSP 01/14/2014 Office visit Maribel M. Draiel ROBERTSP 12/17/2013 Office visit Maribel ROBERTSP 11/19/2013 Office visit Maribel ROBERTSP 10/22/2013 Office visit Maribel ROBERTSP 09/24/2013 Office visit Maribel ROBERTSP 08/27/2013 Office visit Maribel ROBERTSP 07/02/2013 Office visit Maribel ROBERTSP 06/04/2013 Office visit Maribel ROBERTSP 10/09/2012 Office visit Lloyd Oviedo MD 05/08/2010 Office visit Lloyd Oviedo MD 04/21/2010 Office visit Lloyd Oviedo MD
--- OUTSIDE RECORDS SUMMARY | 2018-07-23 09:39 | XMS REPORT ---
Author Author Maribel Vieira [facility] Address [address] [place], [place] [id number] Care Team Providers Care Director Global Sales Name Role Phone Maribel Vieira PCP Elias [...] by 0.5 mg weekly - called to [place] [facility] potassium chloride 10 mEq oral tablet [...] C AB TEST Reviewed 05/21/2017 12:00 AM [facility] MEDICARE - flu vaccine administration Reviewed 05/21/2017 [...] 10/09/2012 12:00 AM Kenalog, Per 10 Mg [facility]#3312-0948-78 Reviewed 12/30/2017 12:00 AM COMPLETE CBC W/AUTO [...] 12:00 AM COLLECTION VENOUS BLOOD VENIPUNCTURE Reviewed 06/04/2013 12:00 AM Drug Screen (Medicare) [...] 12:00 AM SYNVISC-ONE, Per 1 Mg (6ml) [facility] [address]-17 Reviewed 05/06/2014 12:00 AM OFFICE/OUTPATIENT VISIT EST Reviewed 06/03/2014 12:00 AM DRAIN/INJ JOINT/BURSA W/O US Reviewed 06/03/2014 12:00 AM SYNVISC-ONE, Per 1 Mg (6ml) [facility] [address]-56 Reviewed 08/26/2014 12:00 AM RADIOLOGIC EXAM SACROILIAC JOINTS 3/MORE VIEWS Reviewed 01/20/2015 12:00 AM DRAIN/INJ JOINT/BURSA W/O US Reviewed 01/20/2015 12:00 AM SYNVISC-ONE, Per 1 Mg (6ml) [facility] [address]-46 Reviewed 02/24/2015 12:00 AM DRAIN/INJ JOINT/BURSA W/O US Reviewed 02/24/2015 12:00 AM SYNVISC-ONE, Per 1 Mg (6ml) [facility] [address]-48 Reviewed Results Summary Date and Description Results [...] eGFR AA* >60 MAGNESIUM 2.3 CPK 289 History Of Immunizations Name Date Admin Mfg Name Mfg Code Trade Name Lot# Route Inj Vis Given Vis Pub CVX Influenza 05/10/2016 sanofi pasteur PMC Fluzone Quadrivalent [id number] Intramuscular Left Upper Arm 05/10/2016 02/04/2015 141 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/2013 Unknown superintendent local UNK Unknown 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 Unknown 06/21/2016 07/01/2018 33 Influenza 05/21/2017 sanofi pasteur PMC FLUZONE [id number] Intramuscular Left Arm 05/22/2017 01/24/2011 158 Influenza 04/16/2018 ID [employer] or [place] BCQ Flulaval quadrivalent [id number] Intramuscular Left Deltoid 04/16/2018 07/01/2018 158 Pneumococcal 04/16/2018 Merck & Co., Inc. MSD PNEUMOVAX 23 [id number] Intramuscular Right Deltoid 04/16/2018 07/01/2018 33 History of Past Illness Name Date of Onset Comments Arthritis unspecified Angina Arrhythmia Congestive Heart Failure Coronary artery disease PTCA December 2014 - normal Hypertension Myocardial Infarction Depression with Anxiety GERD Insomnia cervical neck pain Cervical Radiculopathy 01/14/2014 Postlaminectomy syndrome of lumbar region 01/14/2014 Lumbago Apr 21 2010 8:56AM Muscle Spasm Apr 21 2010 [...] region Mar 11 2014 9:48AM Cervical Radiculopathy Mar 11 2014 9:48AM Pain in joint; Knee Left Mar 11 2014 9:48AM Right Knee Pain Sep 11 2013 [...] Number Policy Group Number Start Date Medicare RH Medicare RHC [id number] Saturday, 2001 Medicare Part B Medicare Of [place] [id number] Saturday, 2001 Medicare Part A Medicare Part A [id number] Saturday, 2001 Medicare RHC Medicare RHC [id number] Saturday, 2001 Medicare Part A Medicare - Lab/Xray [id number] Saturday, December 29, 2001 History of Encounters [...] GUARDADO 10/09/2017 Office visit Maribel GUARDADO 09/26/2017 Hospital Rosendo Marina MD 09/11/2017 Office visit Maribel GUARDADO 08/14/2017 Office visit Maribel GUARDADO 08/07/2017 Office visit Maribel GUARDADO 07/24/2017 Laboratory Maribel GUARDADO 07/17/2017 Office visit Maribel GUARDADO 06/19/2017 Office visit Maribel GUARDADO 06/05/2017 Office visit Maribel GUARDADO 05/28/2017 Office visit Maribel GUARDADO 05/21/2017 Office visit Maribel GUARDADO 02/20/2017 Office visit Maribel Vieira MILK INSPECTOR 01/16/2017 Office visit Maribel Faith Dariel MILK INSPECTOR 12/19/2016 Office visit Maribel ValCharley Dariel MILK INSPECTOR 12/03/2016 Laboratory Maribel ValCharley Dariel MILK INSPECTOR 11/21/2016 Office visit Maribel Faith Dariel ROBERTSP 10/26/2016 Office visit Maribel Faith Dariel ROBERTSP 10/04/2016 Office visit Maribel ValCharley Dariel ROBERTSP 09/28/2016 Office visit Maribel NealCharley Dariel MILK INSPECTOR 09/26/2016 Office visit Maribel NealCharley Dariel MILK INSPECTOR 08/29/2016 Office visit Maribel Vieira MILK INSPECTOR 08/01/2016 Laboratory Maribel Vieira MILK INSPECTOR 07/04/2016 Office visit Maribel ValCharley Dariel ROBERTSP 06/07/2016 Laboratory Maribel M. Dariel ROBERTSP 06/06/2016 Office visit Maribel Faith Dariel ROBERTSP 05/09/2016 Office visit Maribel ValCharley Dariel ROBERTSP 03/07/2016 Office visit Maribel ROBERTSP 02/08/2016 Office visit Maribel ROBERTSP 01/11/2016 Office visit Maribel ROBERTSP 12/14/2015 Office visit Maribel ValCharley Dariel ROBERTSP 11/14/2015 Office visit Maribel M. Dariel ROBERTSP 10/03/2015 Office visit Maribel ROBERTSP 09/06/2015 Laboratory Maribel Vianney ROBERTSP 08/31/2015 Office visit Maribel M. Dariel ROBERTSP 08/03/2015 Office visit Maribel Vianney ROBERTSP 07/06/2015 Office visit Maribel ROBERTSP 06/09/2015 Nurse visit Maribel ROBERTSP 05/17/2015 Office visit Maribel ROBERTSP 04/25/2015 Office visit Maribel ROBERTSP 03/28/2015 Office visit Maribel ROBERTSP 02/24/2015 Office visit Maribel ROBERTSP 01/20/2015 Office visit Maribel ROBERTSP 12/23/2014 Office visit Maribel ROBERTSP 11/25/2014 Office visit Maribel ROBERTSP 10/21/2014 Nurse visit Maribel ROBERTSP 09/29/2014 Office visit Maribel ROBERTSP 08/26/2014 Office visit Maribel ROBERTSP 07/29/2014 Nurse visit Maribel ROBERTSP 06/29/2014 Nurse visit Maribel ROBERTSP 06/03/2014 Office visit Maribel ROBERTSP 05/06/2014 Nurse visit Maribel ROBERTSP 04/08/2014 Nurse visit Maribel ROBERTSP 03/11/2014 Office visit Maribel ROBERTSP 02/11/2014 Office visit Maribel ROBERTSP 01/14/2014 Office visit Maribel ROBERTSP 12/17/2013 Office visit Maribel ROBERTSP 11/19/2013 Office visit Maribel ROBERTSP 10/22/2013 Office visit Maribel ROBERTSP 09/24/2013 Office visit Maribel ROBERTSP 08/27/2013 Office visit Maribel ROBRETSP 07/02/2013 Office visit Maribel ROBERTSP 06/04/2013 Office visit Maribel ROBERTSP 10/09/2012 Office visit Lloyd Oviedo MD 05/08/2010 Office visit Lloyd Oviedo MD 04/21/2010 Office visit Lloyd Oviedo MD
--- OUTSIDE RECORDS SUMMARY | 2018-07-23 09:41 | XMS REPORT ---
Author Author Maribel Vieira [facility] Address [address] [place], [place] [address] Care Team Providers Care Supervisor [employer] Name Role Phone Maribel Vieira PCP Elias Malagon Unavailable Unavailable Deborah Linares Unavailable Unavailable Allergies and Adverse Reactions Name Reaction Notes PENICILLINS Plan of Treatment Planned Activity Comments Planned Date Planned Time Plan/Goal Lipid profile 09/06/2015 12:00 AM GENERAL HEALTH PANEL 09/06/2015 12:00 AM PSA TOTAL 09/06/2015 12:00 AM MICROALBUMIN UR RANDOM 07/24/2017 12:00 AM CBC W/ AUTO DIFF (RFLX MAN DIFF IF IND). 07/11/2018 12:00 AM BASIC METABOLIC PANEL 07/11/2018 12:00 AM Magnesium level 07/11/2018 12:00 AM Chest x-ray, PA and lateral 07/11/2018 12:00 AM EKG. 07/11/2018 12:00 AM CPK. 07/11/2018 12:00 AM T1DM - insulin pump -current [...] IN THE MORNING AND IN THE EVENING doxycycline monohydrate 100 mg oral capsule 07/09/2018 07/16/2018 take 1 capsule (100 mg) by oral route 2 times per day for 7 days Name Start Date Expiration Date SIG Comments [...] by 0.5 mg weekly - called to [place] [facility] potassium chloride 10 mEq oral tablet [...] a 15 minute period. for 1 day Discontinued Name Start Date Discontinued Date SIG [...] C AB TEST Reviewed 05/21/2017 12:00 AM [facility] MEDICARE - flu vaccine administration Reviewed 05/21/2017 [...] 10/09/2012 12:00 AM Kenalog, Per 10 Mg [facility]#9145-7221-58 Reviewed 12/30/2017 12:00 AM COMPLETE CBC W/AUTO DIFF WBC Reviewed 12/30/2017 12:00 AM COMPREHEN METABOLIC PANEL Reviewed 12/30/2017 12:00 AM URINALYSIS AUTO W/SCOPE Reviewed 12/30/2017 12:00 AM ASSAY OF MAGNESIUM Reviewed 12/30/2017 12:00 AM COLLECTION VENOUS BLOOD VENIPUNCTURE Reviewed 04/16/2018 12:00 AM X-RAY EXAM NECK SPINE 2-3 VW Returned 04/16/2018 12:00 AM X-RAY EXAM L-S SPINE 2/3 VWS Reviewed 04/16/2018 12:00 AM [facility] MEDICARE - flu vaccine administration Reviewed 04/16/2018 [...] Reviewed 09/13/2017 12:00 AM BREATHING CAPACITY TEST Returned 09/13/2017 12:00 AM MRI JNT OF LWR [...] 12:00 AM SYNVISC-ONE, Per 1 Mg (6ml) [facility] [address]-12 Reviewed 05/06/2014 12:00 AM OFFICE/OUTPATIENT VISIT EST Reviewed 06/03/2014 12:00 AM DRAIN/INJ JOINT/BURSA W/O US Reviewed 06/03/2014 12:00 AM SYNVISC-ONE, Per 1 Mg (6ml) [facility] [address]-35 Reviewed 08/26/2014 12:00 AM RADIOLOGIC EXAM SACROILIAC JOINTS 3/MORE VIEWS Reviewed 01/20/2015 12:00 AM DRAIN/INJ JOINT/BURSA W/O US Reviewed 01/20/2015 12:00 AM SYNVISC-ONE, Per 1 Mg (6ml) [facility] [address]-77 Reviewed 02/24/2015 12:00 AM DRAIN/INJ JOINT/BURSA W/O US Reviewed 02/24/2015 12:00 AM SYNVISC-ONE, Per 1 Mg (6ml) [facility] [address]-20 Reviewed Results Summary Date and Description Results [...] 2.3 05/15/2018 2:28 PM PSA TOTAL 0.13 History Of Immunizations Name Date Admin Mfg Name Mfg Code Trade Name Lot# Route Inj Vis Given Vis Pub CVX Influenza 05/10/2016 sanofi pasteur PMC Fluzone Quadrivalent [id number] Intramuscular Left Upper Arm 05/10/2016 02/04/2015 141 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/2013 Unknown aquatic biologist UNK Unknown 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 Unknown 06/21/2016 07/01/2018 33 Influenza 05/21/2017 sanofi pasteur PMC FLUZONE [id number] Intramuscular Left Arm 05/22/2017 01/24/2011 158 Influenza 04/16/2018 ID [employer] or [place] BCQ Flulaval quadrivalent [id number] Intramuscular Left Deltoid 04/16/2018 07/01/2018 158 Pneumococcal 04/16/2018 Merck & Co., Inc. 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 Apr [...] Aug 26 2014 9:01AM Right Knee Pain b 2014 9:01AM Sacroiliac dysfunction Aug 26 2014 [...] 31 2015 1:18PM Congestive Heart Failure Aug 30 2016 1:18PM Radiculopathy, lumbar region Aug 31 2015 [...] 2018 8:34AM Myalgia Jul 11 2018 8:34AM Payers Insurance Name Company Name Plan Name Plan Number Policy Number Policy Group Number Start Date Medicare RHC Medicare RHC [id number] Saturday, 2001 Medicare Part B Medicare Of [place] [id number] Saturday, 2001 Medicare Part A Medicare Part A [id number] Saturday, 2001 Medicare RHC Medicare RHC [id number] Saturday, 2001 Medicare Part A Medicare - Lab/Xray [id number] Saturday, December 29, 2001 History of Encounters Visit Date Visit Type Provider 07/11/2018 Laboratory Maribel GUARDADO 07/09/2018 Office visit Maribel GUARDADO 05/15/2018 Laboratory Maribel ValCharley Dariel MUSEUM EXHIBIT DESIGNER 05/14/2018 Office visit Maribel Faith Dariel MUSEUM EXHIBIT DESIGNER 04/16/2018 Office visit Maribel ValCharley Dariel MUSEUM EXHIBIT DESIGNER 02/19/2018 Office visit Maribel ValCharley Dariel ROBERTSP 12/30/2017 Office visit Maribel M. Dariel ROBERTSP 12/03/2017 Office visit Maribel Faith Dariel MUSEUM EXHIBIT DESIGNER 11/06/2017 Office visit Maribel NealCharley Dariel MUSEUM EXHIBIT DESIGNER 10/09/2017 Office visit Maribel Vieira MUSEUM EXHIBIT DESIGNER 09/26/2017 [facility] Rosendo Marina MD 09/11/2017 Office visit Maribel M. Dariel MUSEUM EXHIBIT DESIGNER 08/14/2017 Office visit Maribel M. Dariel MUSEUM EXHIBIT DESIGNER 08/07/2017 Office visit Maribel ValCharley Dariel MUSEUM EXHIBIT DESIGNER 07/24/2017 Laboratory Maribel ValCharley Dariel MUSEUM EXHIBIT DESIGNER 07/17/2017 Office visit Maribel Faith Dariel ROBERTSP 06/19/2017 Office visit Maribel NealCharley Dariel ROBERTSP 06/05/2017 Office visit Maribel ROBERTSP 05/28/2017 Office visit Maribel ROBERTSP 05/21/2017 Office visit Maribel NealCharley Dariel ROBERTSP 02/20/2017 Office visit Maribel ValCharley Dariel ROBERTSP 01/16/2017 Office visit Maribel ValCharley Dariel ROBERTSP 12/19/2016 Office visit Maribel ROBERTSP 12/03/2016 Laboratory Maribel Vianney ROBERTSP 11/21/2016 Office visit Maribel Faith Dariel ROBERTSP 10/26/2016 Office visit Maribel ValCharley Dariel ROBERTSP 10/04/2016 Office visit Maribel Vieira MUSEUM EXHIBIT DESIGNER 09/28/2016 Office visit Maribel ROBERTSP 09/26/2016 Office visit Maribel ROBERTSP 08/29/2016 Office visit Maribel ROBERTSP 08/01/2016 Laboratory Maribel NealCharley Dariel MUSEUM EXHIBIT DESIGNER 07/04/2016 Office visit Maribel Vieira MUSEUM EXHIBIT DESIGNER 06/07/2016 Laboratory Maribel ROBERTSP 06/06/2016 Office visit Maribel ROBERTSP 05/09/2016 Office visit Maribel ROBERTSP 03/07/2016 Office visit Maribel ROBERTSP 02/08/2016 Office visit Maribel ROBERTSP 01/11/2016 Office visit Maribel ROBERTSP 12/14/2015 Office visit Maribel Faith Dariel ROBERTSP 11/14/2015 Office visit Maribel Faith Dariel ROBERTSP 10/03/2015 Office visit Maribel Faith Dariel ROBERTSP 09/06/2015 Laboratory Maribel Faith Dariel MUSEUM EXHIBIT DESIGNER 08/31/2015 Office visit Maribel Vieira MUSEUM EXHIBIT DESIGNER 08/03/2015 Office visit Maribel Vieira MUSEUM EXHIBIT DESIGNER 07/06/2015 Office visit Maribel Faith Dariel ROBERTSP 06/09/2015 Nurse visit Maribel Faith Dariel ROBERTSP 05/17/2015 Office visit Maribel Faith Dariel MUSEUM EXHIBIT DESIGNER 04/25/2015 Office visit Maribel Vieira MUSEUM EXHIBIT DESIGNER 03/28/2015 Office visit Maribel Vieira MUSEUM EXHIBIT DESIGNER 02/24/2015 Office visit Maribel Faith Darile ROBERTSP 01/20/2015 Office visit Maribel Faith Dariel ROBERTSP 12/23/2014 Office visit Maribel Vieira MUSEUM EXHIBIT DESIGNER 11/25/2014 Office visit Maribel Faith Dariel ROBERTSP 10/21/2014 Nurse visit Maribel ValCharley Dariel ROBERTSP 09/29/2014 Office visit Maribel Fatih Dariel ROBERTSP 08/26/2014 Office visit Maribel Faith Dariel ROBERTSP 07/29/2014 Nurse visit Maribel Faith Dariel ROBERTSP 06/29/2014 Nurse visit Maribel Faith Dariel ROBERTSP 06/03/2014 Office visit Maribel Faith Dariel ROBERTSP 05/06/2014 Nurse visit Maribel Faith Dariel ROBERTSP 04/08/2014 Nurse visit Maribel Vieira MUSEUM EXHIBIT DESIGNER 03/11/2014 Office visit Maribel Faith Dariel ROBERTSP 02/11/2014 Office visit Maribel ROBERTSP 01/14/2014 Office visit Maribel NealCharley Dariel ROBERTSP 12/17/2013 Office visit Maribel NealCharley Dariel ROBERTSP 11/19/2013 Office visit Maribel NealCharley Dariel ROBERTSP 10/22/2013 Office visit Maribel NealCharley Dariel ROBERTSP 09/24/2013 Office visit Maribel ROBERTSP 08/27/2013 Office visit Maribel ROBERTSP 07/02/2013 Office visit Maribel ROBERTSP 06/04/2013 Office visit Maribel ROBERTSP 10/09/2012 Office visit Lloyd Oviedo MD 05/08/2010 Office visit Lloyd Oviedo MD 04/21/2010 Office visit Lloyd Oviedo MD
--- OUTSIDE RECORDS SUMMARY | 2018-07-23 09:43 | XMS REPORT ---
Author Author Maribel Vieira [facility] Address [address] [place], [place] [id number] Care Team Providers Care Cabin Equipment Supervisor Name Role Phone Maribel Vieira PCP Elias [...] 07/11/2018 12:00 AM EKG. 07/11/2018 12:00 AM T1DM - insulin pump [...] by 0.5 mg weekly - called to [place] [facility] potassium chloride 10 mEq oral tablet [...] JOINT/BURSA W/O US Reviewed 10/09/2012 12:00 AM Rudy Charles 10 Mg [facility][id number] Reviewed 12/30/2017 12:00 AM COMPLETE CBC W/AUTO [...] flu vaccine administration Reviewed 04/16/2018 12:00 AM RHC MEDICARE - pneumonia vaccine administration Reviewed 04/16/2018 [...] 12:00 AM SYNVISC-ONE, Per 1 Mg (6ml) [facility] [id number] Reviewed 05/06/2014 12:00 AM OFFICE/OUTPATIENT VISIT EST Reviewed 06/03/2014 12:00 AM DRAIN/INJ JOINT/BURSA W/O US Reviewed 06/03/2014 12:00 AM SYNVISC-ONE, Per 1 Mg (6ml) [facility] [id number] Reviewed 08/26/2014 12:00 AM RADIOLOGIC EXAM SACROILIAC JOINTS 3/MORE VIEWS Reviewed 01/20/2015 12:00 AM DRAIN/INJ JOINT/BURSA W/O US Reviewed 01/20/2015 12:00 AM SYNVISC-ONE, Per 1 Mg (6ml) [facility] [id number] Reviewed 02/24/2015 12:00 AM DRAIN/INJ JOINT/BURSA W/O US Reviewed 02/24/2015 12:00 AM SYNVISC-ONE, Per 1 Mg (6ml) [facility] [id number] Reviewed Results Summary Date and Description Results [...] Influenza 05/10/2016 sanofi pasteur PMC Fluzone Quadrivalent [id number] Intramuscular Left Upper Arm 05/10/2016 02/04/2015 141 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 MSD PNEUMOVAX 23 [id number] Intramuscular Right Deltoid 04/16/2018 07/01/2018 33 History [...] disease) 07/18/2017 Cervical pain 04/16/2018 s/p acdf 2012 Hemiparesis of right dominant side, unspecified hemiparesis [...] Mar 11 2014 9:48AM Right Knee Pain Mar 11 2014 9:48AM Right Osteoarthritis, knee Worsening Mar 11 [...] 03 2015 1:55PM Chronic Back Pain Aug 3 2015 1:55PM Essential Hypertension Aug 31 2015 1:18PM Hyperlipidemia Aug 31 2015 1:18PM Congestive Heart Failure Aug 31 2015 1:18PM Radiculopathy, lumbar region Aug 31 2015 1:18PM Chronic Back Pain Aug 30 2016 1:18PM Type 1 diabetes mellitus with complications [...] Number Start Date Medicare RHC Medicare RHC [id number] Saturday, 2001 Medicare Part B Medicare Of [place] [id number] Saturday, 2001 Medicare Part A Medicare Part A [id number] Saturday, 2001 Medicare RHC Medicare RHC [id number] Saturday, 2001 Medicare Part A Medicare - Lab/Xray [id number] Saturday, December 29, 2001 History of Encounters Visit Date Visit Type Provider 07/11/2018 Laboratory Maribel GUARDADO 07/09/2018 Office visit Maribel GUARDADO 05/15/2018 Laboratory Maribel GUARDADO 05/14/2018 Office visit Maribel Vieira SUPERINTENDENT RECREATION 04/16/2018 Office visit Maribel Vieira SUPERINTENDENT RECREATION 02/19/2018 Office visit Maribel Faith Dariel SUPERINTENDENT RECREATION 12/30/2017 Office visit Maribel Faith Dariel SUPERINTENDENT RECREATION 12/03/2017 Office visit Maribel Vieira SUPERINTENDENT RECREATION 11/06/2017 Office visit Maribel Vieira SUPERINTENDENT RECREATION 10/09/2017 Office visit Maribel Vianney Dariel SUPERINTENDENT RECREATION 09/26/2017 [facility] Rosendo Marina MD 09/11/2017 Office visit Maribel Vieira SUPERINTENDENT RECREATION 08/14/2017 Office visit Maribel Vieira SUPERINTENDENT RECREATION 08/07/2017 Office visit Maribel Vieira SUPERINTENDENT RECREATION 07/24/2017 Laboratory Maribel ValCharley Dariel SUPERINTENDENT RECREATION 07/17/2017 Office visit Maribel Faith Dariel ROBERTSP 06/19/2017 Office visit Maribel Faith Dariel ROBERTSP 06/05/2017 Office visit Maribel Faith Dariel ROBERTSP 05/28/2017 Office visit Maribel ValCharley Dariel ROBERTSP 05/21/2017 Office visit Maribel ValCharley Dariel ROBERTSP 02/20/2017 Office visit Maribel Faith Dariel ROBERTSP 01/16/2017 Office visit Maribel Faith Dariel ROBERTSP 12/19/2016 Office visit Maribel Faith Dariel ROBERTSP 12/03/2016 Laboratory Maribel M. Dariel ROBERTSP 11/21/2016 Office visit Maribel Faith Dariel ROBERTSP 10/26/2016 Office visit Maribel Faith Dariel ROBERTSP 10/04/2016 Office visit Maribel Faith Dariel ROBERTSP 09/28/2016 Office visit Maribel ROBERTSP 09/26/2016 Office visit Maribel Vianney ROBERTSP 08/29/2016 Office visit Maribel Faith Dariel ROBERTSP 08/01/2016 Laboratory Maribel M. Dariel SUPERINTENDENT RECREATION 07/04/2016 Office visit Maribel Vianney Dariel SUPERINTENDENT RECREATION 06/07/2016 Laboratory Maribel Vieira SUPERINTENDENT RECREATION 06/06/2016 Office visit Maribel ROBERTSP 05/09/2016 Office visit Maribel NealCharley Dariel ROBERTSP 03/07/2016 Office visit Maribel ROBERTSP 02/08/2016 Office visit Maribel ROBERTSP 01/11/2016 Office visit Maribel ROBERTSP 12/14/2015 Office visit Maribel ROBERTSP 11/14/2015 Office visit Maribel Faith Dariel ROBERTSP 10/03/2015 Office visit Maribel Faith Dariel SUPERINTENDENT RECREATION 09/06/2015 Laboratory Maribel Faith Dariel SUPERINTENDENT RECREATION 08/31/2015 Office visit Maribel Vieira SUPERINTENDENT RECREATION 08/03/2015 Office visit Maribel Vieira SUPERINTENDENT RECREATION 07/06/2015 Office visit Maribel Faith Dariel ROBERTSP 06/09/2015 Nurse visit Maribel Faith Dariel ROBERTSP 05/17/2015 Office visit Maribel Faith Dariel SUPERINTENDENT RECREATION 04/25/2015 Office visit Maribel Vieira SUPERINTENDENT RECREATION 03/28/2015 Office visit Maribel Vieira SUPERINTENDENT RECREATION 02/24/2015 Office visit Maribel Vieira SUPERINTENDENT RECREATION 01/20/2015 Office visit Maribel Faith Dariel ROBERTSP 12/23/2014 Office visit Maribel Faith Dariel ROBERTSP 11/25/2014 Office visit Maribel Faith Dariel ROBERTSP 10/21/2014 Nurse visit Maribel Faith Dariel ROBERTSP 09/29/2014 Office visit Maribel Faith Dariel ROBERTSP 08/26/2014 Office visit Maribel Faith Dariel ROBERTSP 07/29/2014 Nurse visit Maribel Vieira SUPERINTENDENT RECREATION 06/29/2014 Nurse visit Maribel Faith Dariel ROBERTSP 06/03/2014 Office visit Maribel Faith Dariel ROBERTSP 05/06/2014 Nurse visit Maribel Faith Dariel ROBERTSP 04/08/2014 Nurse visit Maribel Vieira SUPERINTENDENT RECREATION 03/11/2014 Office visit Maribel Faith Dariel ROBERTSP 02/11/2014 Office visit Maribel M. Dariel ROBERTSP 01/14/2014 Office visit Maribel ValCharley Dariel ROBERTSP 12/17/2013 Office visit Maribel ValCharley Dariel ROBERTSP 11/19/2013 Office visit Maribel M. Dariel ROBERTSP 10/22/2013 Office visit Maribel NealCharley Dariel ROBERTSP 09/24/2013 Office visit Maribel Vianney Dariel ROBERTSP 08/27/2013 Office visit Maribel ROBERTSP 07/02/2013 Office visit Maribel ROBERTSP 06/04/2013 Office visit Maribel NealCharley Dariel ROBERTSP 10/09/2012 Office visit Lloyd Oviedo MD 05/08/2010 Office visit Lloyd Oviedo MD 04/21/2010 Office visit Lloyd Oviedo MD
--- OUTSIDE RECORDS SUMMARY | 2018-07-23 09:45 | XMS REPORT ---
Author Author Maribel Vieira [facility] Address [address] [place], [place] [phone] Care Team Providers Care Agent Based Modeler Name Role Phone Maribel Vieira PCP Elias [...] by 0.5 mg weekly - called to [place] [facility] potassium chloride 10 mEq oral tablet [...] 10/09/2012 12:00 AM Rudy Charles 10 Mg [facility]#[id number] Reviewed 12/30/2017 12:00 AM COMPLETE CBC W/AUTO [...] 12:00 AM SYNVISC-ONE, Per 1 Mg (6ml) [facility] [id number] Reviewed 05/06/2014 12:00 AM OFFICE/OUTPATIENT VISIT EST Reviewed 06/03/2014 12:00 AM DRAIN/INJ JOINT/BURSA W/O US Reviewed 06/03/2014 12:00 AM SYNVISC-ONE, Per 1 Mg (6ml) [facility] [id number] Reviewed 08/26/2014 12:00 AM RADIOLOGIC EXAM SACROILIAC JOINTS 3/MORE VIEWS Reviewed 01/20/2015 12:00 AM DRAIN/INJ JOINT/BURSA W/O US Reviewed 01/20/2015 12:00 AM SYNVISC-ONE, Per 1 Mg (6ml) [facility] [id number] Reviewed 02/24/2015 12:00 AM DRAIN/INJ JOINT/BURSA W/O US Reviewed 02/24/2015 12:00 AM SYNVISC-ONE, Per 1 Mg (6ml) [facility] [id number] Reviewed Results Summary Date and Description Results [...] Influenza 05/10/2016 sanofi pasteur PMC Fluzone Quadrivalent [id number] Intramuscular Left Upper Arm 05/10/2016 02/04/2015 141 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 MSD PNEUMOVAX 23 [id number] Intramuscular Right Deltoid 04/16/2018 07/01/2018 33 History [...] Number Start Date Medicare RHC Medicare RHC [id number] Saturday, 2001 Medicare Part B Medicare Of [place] [id number] Saturday, 2001 Medicare Part A Medicare Part A [id number] Saturday, 2001 Medicare RHC Medicare RHC [id number] Saturday, 2001 Medicare Part A Medicare - Lab/Xray [id number] Saturday, December 29, 2001 History of Encounters Visit Date Visit Type Provider 07/11/2018 Laboratory Maribel GUARDADO 07/09/2018 Office visit Maribel GUARDADO 05/15/2018 Laboratory Maribel GUARDADO 05/14/2018 Office visit Maribel Vieira SENIOR MECHANICAL TECHNICIAN 04/16/2018 Office visit Maribel Vieira SENIOR MECHANICAL TECHNICIAN 02/19/2018 Office visit Maribel Faith Dariel SENIOR MECHANICAL TECHNICIAN 12/30/2017 Office visit Maribel Faith Dariel SENIOR MECHANICAL TECHNICIAN 12/03/2017 Office visit Maribel Vieira SENIOR MECHANICAL TECHNICIAN 11/06/2017 Office visit Maribel Vieira SENIOR MECHANICAL TECHNICIAN 10/09/2017 Office visit Maribel Vianney Dariel SENIOR MECHANICAL TECHNICIAN 09/26/2017 [facility] Rosendo Marina MD 09/11/2017 Office visit Maribel Vieira SENIOR MECHANICAL TECHNICIAN 08/14/2017 Office visit Maribel Vieira SENIOR MECHANICAL TECHNICIAN 08/07/2017 Office visit Maribel Vieira SENIOR MECHANICAL TECHNICIAN 07/24/2017 Laboratory Maribel ValCharley Dariel SENIOR MECHANICAL TECHNICIAN 07/17/2017 Office visit Maribel Faith Dariel ROBERTSP [...] Dariel ROBERTSP 08/01/2016 Laboratory Maribel M. Dariel SENIOR MECHANICAL TECHNICIAN 07/04/2016 Office visit Maribel Vianney Dariel SENIOR MECHANICAL TECHNICIAN 06/07/2016 Laboratory Maribel Vieira SENIOR MECHANICAL TECHNICIAN 06/06/2016 Office visit Maribel ROBERTSP 05/09/2016 Office visit Maribel NealCharley Dariel ROBERTSP 03/07/2016 Office visit Maribel ROBERTSP 02/08/2016 Office visit Maribel ROBERTSP 01/11/2016 Office visit Maribel ROBERTSP 12/14/2015 Office visit Maribel ROBERTSP 11/14/2015 Office visit Maribel Faith Dariel ROBERTSP 10/03/2015 Office visit Maribel Faith Dariel SENIOR MECHANICAL TECHNICIAN 09/06/2015 Laboratory Maribel Faith Dariel SENIOR MECHANICAL TECHNICIAN 08/31/2015 Office visit Maribel Vieira SENIOR MECHANICAL TECHNICIAN 08/03/2015 Office visit Maribel Vieira SENIOR MECHANICAL TECHNICIAN 07/06/2015 Office visit Maribel Faith Dariel ROBERTSP 06/09/2015 Nurse visit Maribel Faith Dariel ROBERTSP 05/17/2015 Office visit Maribel Faith Dariel SENIOR MECHANICAL TECHNICIAN 04/25/2015 Office visit Maribel Vieira SENIOR MECHANICAL TECHNICIAN 03/28/2015 Office visit Maribel Vieira SENIOR MECHANICAL TECHNICIAN 02/24/2015 Office visit Maribel Vieira SENIOR MECHANICAL TECHNICIAN 01/20/2015 Office visit Maribel Faith Dariel ROBERTSP 12/23/2014 Office visit Maribel Faith Dariel ROBERTSP 11/25/2014 Office visit Maribel Faith Dariel ROBERTSP 10/21/2014 Nurse visit Maribel Faith Dariel ROBERTSP 09/29/2014 Office visit Maribel Faith Dariel ROBERTSP 08/26/2014 Office visit Maribel Faith Dariel ROBERTSP 07/29/2014 Nurse visit Maribel Vieira SENIOR MECHANICAL TECHNICIAN 06/29/2014 Nurse visit Maribel Faith Dariel ROBERTSP 06/03/2014 Office visit Maribel Faith Dariel ROBERTSP 05/06/2014 Nurse visit Maribel Faith Dariel ROBERTSP 04/08/2014 Nurse visit Maribel Vieira SENIOR MECHANICAL TECHNICIAN 03/11/2014 Office visit Maribel Faith Dariel ROBERTSP [...]
--- OUTSIDE RECORDS SUMMARY | 2018-07-23 09:47 | XMS REPORT ---
Author Author Maribel Vieira [facility] Address [address] [place], [place] [phone] Care Team Providers Care Vp Delivery Name Role Phone Maribel Vieira PCP Elias Malagon Unavailable Unavailable Deborah Linares Unavailable Unavailable Allergies and Adverse Reactions Name Reaction Notes PENICILLINS Plan of Treatment Planned Activity Comments Planned Date Planned Time Plan/Goal Lipid profile 09/06/2015 12:00 AM GENERAL HEALTH PANEL 09/06/2015 12:00 AM PSA TOTAL 09/06/2015 12:00 AM MICROALBUMIN UR RANDOM 07/24/2017 12:00 AM T1DM - insulin pump -current [...] by 0.5 mg weekly - called to [place] [facility] potassium chloride 10 mEq oral tablet [...] 315 lbs 75 in 39.37 kg/m2 2.7497 05/08/2010 12:54:00 PM 137 mmHg 87 mmHg [...] C AB TEST Reviewed 05/21/2017 12:00 AM [facility] MEDICARE - flu vaccine administration [...] 10/09/2012 12:00 AM Kenalog, Per 10 Mg [facility]#1579-1375-92 Reviewed 12/30/2017 12:00 AM COMPLETE CBC W/AUTO [...] JNT OF LWR EXTRE W/O DYE Reviewed 06/04/2013 12:00 AM Drug Screen (Medicare) [...] 12:00 AM SYNVISC-ONE, Per 1 Mg (6ml) [facility] [address]-09 Reviewed 05/06/2014 12:00 AM OFFICE/OUTPATIENT VISIT EST Reviewed 06/03/2014 12:00 AM DRAIN/INJ JOINT/BURSA W/O US Reviewed 06/03/2014 12:00 AM SYNVISC-ONE, Per 1 Mg (6ml) [facility] [address]-55 Reviewed 08/26/2014 12:00 AM RADIOLOGIC EXAM SACROILIAC JOINTS 3/MORE VIEWS Reviewed 01/20/2015 12:00 AM DRAIN/INJ JOINT/BURSA W/O US Reviewed 01/20/2015 12:00 AM SYNVISC-ONE, Per 1 Mg (6ml) [facility] [address]-61 Reviewed 02/24/2015 12:00 AM DRAIN/INJ JOINT/BURSA W/O US Reviewed 02/24/2015 12:00 AM SYNVISC-ONE, Per 1 Mg (6ml) [facility] [id number] Reviewed Results Summary Date and Description Results [...] Influenza 05/10/2016 sanofi pasteur PMC Fluzone Quadrivalent [id number] Intramuscular Left Upper Arm 05/10/2016 02/04/2015 141 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 MSD PNEUMOVAX 23 [id number] Intramuscular Right Deltoid 04/16/2018 07/01/2018 33 History [...] Sep 2013 9:48AM Right Knee Pain Sep 2013 9:48AM Right Osteoarthritis, knee Worsening Sep [...] unspecified hemiparesis etiology Jul 09 2018 1:32PM Payers Insurance Name Company Name Plan Name Plan Number Policy Number Policy Group Number Start Date Medicare RHC Medicare RHC [id number] Saturday, 2001 Medicare Part B Medicare Of [place] [id number] Saturday, 2001 Medicare Part A Medicare Part A [id number] Saturday, 2001 Medicare RHC Medicare RHC [id number] Saturday, 2001 Medicare Part A Medicare - Lab/Xray [id number] Saturday, December 29, 2001 History of Encounters Visit Date Visit Type Provider 07/09/2018 Office visit Maribel GUARDADO 05/15/2018 Laboratory Maribel GUARDADO 05/14/2018 Office visit Maribel GUARDADO 04/16/2018 Office visit Maribel GUARDADO 02/19/2018 Office visit Maribel GUARDADO 12/30/2017 Office visit Maribel GUARDADO 12/03/2017 Office visit Maribel GUARDADO 11/06/2017 Office visit Maribel GUARDADO 10/09/2017 Office visit Maribel GUARDADO 09/26/2017 Hospital Rosendo Marina MD 09/11/2017 Office visit Maribel GUARDADO 08/14/2017 Office visit Maribel Vieira HEALTH INSURANCE ASSESSOR 08/07/2017 Office visit Maribel Vieira HEALTH INSURANCE ASSESSOR 07/24/2017 Laboratory Maribel Vieira HEALTH INSURANCE ASSESSOR 07/17/2017 Office visit Maribel Faith Dariel HEALTH INSURANCE ASSESSOR 06/19/2017 Office visit Maribel Vieira HEALTH INSURANCE ASSESSOR 06/05/2017 Office visit Maribel Faith Dariel HEALTH INSURANCE ASSESSOR 05/28/2017 Office visit Maribel M. Dariel HEALTH INSURANCE ASSESSOR 05/21/2017 Office visit Maribel M. Dariel HEALTH INSURANCE ASSESSOR 02/20/2017 Office visit Maribel Vieira HEALTH INSURANCE ASSESSOR 01/16/2017 Office visit Maribel Vieira HEALTH INSURANCE ASSESSOR 12/19/2016 Office visit Maribel Faith Dariel ROBERTSP 12/03/2016 Laboratory Maribel M. Dariel HEALTH INSURANCE ASSESSOR 11/21/2016 Office visit Maribel Faith Dariel ROBERTSP 10/26/2016 Office visit Maribel Vieira HEALTH INSURANCE ASSESSOR 10/04/2016 Office visit Maribel Faith Dariel ROBERTSP 09/28/2016 Office visit Maribel M. Dariel ROBERTSP 09/26/2016 Office visit Maribel ValCharley Dariel ROBERTSP 08/29/2016 Office visit Maribel Faith Dariel ROBERTSP 08/01/2016 Laboratory Maribel Vieira HEALTH INSURANCE ASSESSOR 07/04/2016 Office visit Maribel M. Dariel ROBERTSP 06/07/2016 Laboratory Maribel M. Dariel ROBERTSP 06/06/2016 Office visit Maribel Faith Dariel ROBERTSP 05/09/2016 Office visit Maribel Faith Dariel ROBERTSP 03/07/2016 Office visit Maribel ValCharley Dariel ROBERTSP 02/08/2016 Office visit Maribel ROBERTSP 01/11/2016 Office visit Maribel ROBERTSP 12/14/2015 Office visit Maribel M. Dariel ROBERTSP 11/14/2015 Office visit Maribel M. Dariel ROBERTSP 10/03/2015 Office visit Maribel Vianney Dariel ROBERTSP 09/06/2015 Laboratory Maribel Vieira HEALTH INSURANCE ASSESSOR 08/31/2015 Office visit Maribel ROBERTSP 08/03/2015 Office visit Maribel Vianney Dariel ROBERTSP 07/06/2015 Office visit Maribel ROBERTSP 06/09/2015 Nurse visit Maribel Vieira HEALTH INSURANCE ASSESSOR 05/17/2015 Office visit Maribel Vieira HEALTH INSURANCE ASSESSOR 04/25/2015 Office visit Maribel ROBERTSP 03/28/2015 Office visit Maribel Vieira HEALTH INSURANCE ASSESSOR 02/24/2015 Office visit Maribel Vieira HEALTH INSURANCE ASSESSOR 01/20/2015 Office visit Maribel Vieira HEALTH INSURANCE ASSESSOR 12/23/2014 Office visit Maribel Vieira HEALTH INSURANCE ASSESSOR 11/25/2014 Office visit Maribel Vieira HEALTH INSURANCE ASSESSOR 10/21/2014 Nurse visit Maribel Vieira HEALTH INSURANCE ASSESSOR 09/29/2014 Office visit Maribel Faith Dariel ROBERTSP 08/26/2014 Office visit Maribel Vieira HEALTH INSURANCE ASSESSOR 07/29/2014 Nurse visit Maribel Vieira HEALTH INSURANCE ASSESSOR 06/29/2014 Nurse visit Maribel Vieira HEALTH INSURANCE ASSESSOR 06/03/2014 Office visit Maribel Vieira HEALTH INSURANCE ASSESSOR 05/06/2014 Nurse visit Maribel Vieira HEALTH INSURANCE ASSESSOR 04/08/2014 Nurse visit Maribel Vieira HEALTH INSURANCE ASSESSOR 03/11/2014 Office visit Maribel Vieira HEALTH INSURANCE ASSESSOR 02/11/2014 Office visit Maribel Vieira HEALTH INSURANCE ASSESSOR 01/14/2014 Office visit Maribel Faith Dariel ROBERTSP 12/17/2013 Office visit Maribel Faith Dariel ROBERTSP 11/19/2013 Office visit Maribel Vieira HEALTH INSURANCE ASSESSOR 10/22/2013 Office visit Maribel Vieira HEALTH INSURANCE ASSESSOR 09/24/2013 Office visit Maribel M. Dariel ROBERTSP 08/27/2013 Office visit Maribel Vianney Dariel ROBERTSP 07/02/2013 Office visit Maribel Vianney Dariel ROBERTSP 06/04/2013 Office visit Maribel ROBERTSP 10/09/2012 Office visit Lloyd Oviedo MD 05/08/2010 Office visit Lloyd Oviedo MD 04/21/2010 Office visit Lloyd Oviedo MD
--- OUTSIDE RECORDS SUMMARY | 2018-07-23 09:48 | XMS REPORT ---
Author Author Maribel Vieira [facility] Address [address] [place], [place] [id number] Care Team Providers Care Coal Bagger Name Role Phone Maribel Vieira PCP Elias [...] IN THE MORNING AND IN THE EVENING Nitrostat 0.4 mg sublingual tablet, sublingual 07/09/2018 [...] by 0.5 mg weekly - called to [facility] potassium chloride 10 mEq oral tablet [...] route every 12 hours for 7 days Discontinued Name Start Date [...] C AB TEST Reviewed 05/21/2017 12:00 AM [facility] MEDICARE - flu vaccine administration Reviewed [...] 10/09/2012 12:00 AM Kenalog, Per 10 Mg [facility]#8789-8658-54 Reviewed 12/30/2017 12:00 AM COMPLETE CBC W/AUTO [...] 12:00 AM SYNVISC-ONE, Per 1 Mg (6ml) [facility] [address]-59 Reviewed 05/06/2014 12:00 AM OFFICE/OUTPATIENT VISIT EST Reviewed 06/03/2014 12:00 AM DRAIN/INJ JOINT/BURSA W/O US Reviewed 06/03/2014 12:00 AM SYNVISC-ONE, Per 1 Mg (6ml) [facility] [address]-00 Reviewed 08/26/2014 12:00 AM RADIOLOGIC EXAM SACROILIAC JOINTS 3/MORE VIEWS Reviewed 01/20/2015 12:00 AM DRAIN/INJ JOINT/BURSA W/O US Reviewed 01/20/2015 12:00 AM SYNVISC-ONE, Per 1 Mg (6ml) [facility] [address]-24 Reviewed 02/24/2015 12:00 AM DRAIN/INJ JOINT/BURSA W/O US Reviewed 02/24/2015 12:00 AM SYNVISC-ONE, Per 1 Mg (6ml) [facility] [address]-99 Reviewed Results Summary Date and Description Results [...] Influenza 05/10/2016 sanofi pasteur PMC Fluzone Quadrivalent [id number] Intramuscular Left Upper Arm 05/10/2016 02/04/2015 141 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/2013 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 MSD PNEUMOVAX 23 [id number] Intramuscular Right Deltoid 04/16/2018 07/01/2018 33 History [...] Number Start Date Medicare RHC Medicare RHC [id number] Saturday, 2001 Medicare Part B Medicare Of [place] [id number] Saturday, 2001 Medicare Part A Medicare Part A [id number] Saturday, 2001 Medicare RHC Medicare RHC [id number] Saturday, 2001 Medicare Part A Medicare - Lab/Xray [id number] Saturday, December 29, 2001 History of Encounters [...] Maribel GUARDADO 08/14/2017 Office visit Maribel Vieira FIRST LEVELER 08/07/2017 Office visit Maribel Vieira FIRST LEVELER 07/24/2017 Laboratory Maribel Vieira FIRST LEVELER 07/17/2017 Office visit Maribel Faith Dariel FIRST LEVELER 06/19/2017 Office visit Maribel Vieira FIRST LEVELER 06/05/2017 Office visit Maribel Faith Dariel FIRST LEVELER 05/28/2017 Office visit Maribel M. Dariel FIRST LEVELER 05/21/2017 Office visit Maribel M. Dariel FIRST LEVELER 02/20/2017 Office visit Maribel Vieira FIRST LEVELER 01/16/2017 Office visit Maribel Vieira FIRST LEVELER 12/19/2016 Office visit Maribel Faith Dariel ROBERTSP 12/03/2016 Laboratory Maribel M. Dariel FIRST LEVELER 11/21/2016 Office visit Maribel Faith Dariel ROBERTSP 10/26/2016 Office visit Maribel Vieira FIRST LEVELER 10/04/2016 Office visit Maribel Faith Dariel ROBERTSP 09/28/2016 Office visit Maribel M. Dariel ROBERTSP 09/26/2016 Office visit Maribel ValCharley Dariel ROBERTSP 08/29/2016 Office visit Maribel Faith Dariel ROBERTSP 08/01/2016 Laboratory Maribel Vieira FIRST LEVELER 07/04/2016 Office visit Maribel M. Dariel ROBERTSP [...] Vianney Dariel ROBERTSP 09/06/2015 Laboratory Maribel Vieira FIRST LEVELER 08/31/2015 Office visit Maribel ROBERTSP 08/03/2015 Office visit Maribel Vianney Dariel ROBERTSP 07/06/2015 Office visit Maribel ROBERTSP 06/09/2015 Nurse visit Maribel Vieira FIRST LEVELER 05/17/2015 Office visit Maribel Vieira FIRST LEVELER 04/25/2015 Office visit Maribel ROBERTSP 03/28/2015 Office visit Maribel Vieira FIRST LEVELER 02/24/2015 Office visit Maribel Vieira FIRST LEVELER 01/20/2015 Office visit Maribel Vieira FIRST LEVELER 12/23/2014 Office visit Maribel Vieira FIRST LEVELER 11/25/2014 Office visit Maribel Vieira FIRST LEVELER 10/21/2014 Nurse visit Maribel Vieira FIRST LEVELER 09/29/2014 Office visit Maribel Faith Dariel ROBERTSP 08/26/2014 Office visit Maribel Vieira FIRST LEVELER 07/29/2014 Nurse visit Maribel Vieira FIRST LEVELER 06/29/2014 Nurse visit Maribel Vieira FIRST LEVELER 06/03/2014 Office visit Maribel Vieira FIRST LEVELER 05/06/2014 Nurse visit Maribel Vieira FIRST LEVELER 04/08/2014 Nurse visit Maribel Vieira FIRST LEVELER 03/11/2014 Office visit Maribel Vieira FIRST LEVELER 02/11/2014 Office visit Maribel Vieira FIRST LEVELER 01/14/2014 Office visit Maribel Faith Dariel ROBERTSP 12/17/2013 Office visit Maribel Faith Dariel ROBERTSP 11/19/2013 Office visit Maribel Vieira FIRST LEVELER 10/22/2013 Office visit Maribel Vieira FIRST LEVELER 09/24/2013 Office visit Maribel M. Dariel ROBERTSP 08/27/2013 Office visit Maribel Vianney Dariel ROBERTSP 07/02/2013 Office visit Maribel Vianney Dariel ROBERTSP 06/04/2013 Office visit Maribel ROBERTSP 10/09/2012 Office visit Lloyd Oviedo MD 05/08/2010 Office visit Lloyd Oviedo MD 04/21/2010 Office visit Lloyd Oviedo MD
--- OUTSIDE RECORDS SUMMARY | 2018-07-23 09:50 | XMS REPORT ---
Author Author Maribel Vieira [facility] Address [address] [place], [place] [id number] Care Team Providers Care Insulation Sprayer Name Role Phone Maribel Vieira PCP Elias [...] by 0.5 mg weekly - called to [facility] potassium chloride 10 mEq oral tablet [...] C AB TEST Reviewed 05/21/2017 12:00 AM [facility] MEDICARE - flu vaccine administration Reviewed [...] 10/09/2012 12:00 AM Kenalog, Per 10 Mg [facility]#[id number] Reviewed 12/30/2017 12:00 AM COMPLETE CBC W/AUTO [...] 12:00 AM SYNVISC-ONE, Per 1 Mg (6ml) [facility] [address]-52 Reviewed 05/06/2014 12:00 AM OFFICE/OUTPATIENT VISIT EST Reviewed 06/03/2014 12:00 AM DRAIN/INJ JOINT/BURSA W/O US Reviewed 06/03/2014 12:00 AM SYNVISC-ONE, Per 1 Mg (6ml) [facility] [address]-96 Reviewed 08/26/2014 12:00 AM RADIOLOGIC EXAM SACROILIAC JOINTS 3/MORE VIEWS Reviewed 01/20/2015 12:00 AM DRAIN/INJ JOINT/BURSA W/O US Reviewed 01/20/2015 12:00 AM SYNVISC-ONE, Per 1 Mg (6ml) [facility] [address]-29 Reviewed 02/24/2015 12:00 AM DRAIN/INJ JOINT/BURSA W/O US Reviewed 02/24/2015 12:00 AM SYNVISC-ONE, Per 1 Mg (6ml) [facility] [address]-70 Reviewed Results Summary Date and Description Results [...] Influenza 05/10/2016 sanofi pasteur PMC Fluzone Quadrivalent [id number] Intramuscular Left Upper Arm 05/10/2016 02/04/2015 141 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/2013 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 MSD PNEUMOVAX 23 [id number] Intramuscular Right Deltoid 04/16/2018 07/01/2018 33 History [...] Other chronic pain Oct 09 2017 1:44PM Payers Insurance Name Company Name Plan Name Plan Number Policy Number Policy Group Number Start Date Medicare RHC Medicare RHC [id number] Saturday, 2001 Medicare Part B Medicare Of [place] [id number] Saturday, 2001 Medicare Part A Medicare Part A [id number] Saturday, 2001 Medicare RHC Medicare RHC [id number] Saturday, 2001 Medicare Part A Medicare - Lab/Xray [id number] Saturday, December 29, 2001 History of Encounters [...] Office visit Maribel GUARDADO 08/07/2017 Office visit Mraibel GUARDADO 07/24/2017 Laboratory Maribel GUARDADO 07/17/2017 Office visit Maribel GUARDADO 06/19/2017 Office visit Maribel GUARDADO 06/05/2017 Office visit Maribel NealCharley Dariel UNDER PRESSER 05/28/2017 Office visit Maribel Faith Dariel UNDER PRESSER 05/21/2017 Office visit Maribel M. Dariel ROBERTSP 02/20/2017 Office visit Maribel M. Dariel ROBERTSP 01/16/2017 Office visit Marbiel Vieira UNDER PRESSER 12/19/2016 Office visit Maribel Faith Dariel ROBERTSP 12/03/2016 Laboratory Maribel ValCharley Dariel UNDER PRESSER 11/21/2016 Office visit Maribel ValCharley Dariel ROBERTSP 10/26/2016 Office visit Maribel ValCharley Dariel UNDER PRESSER 10/04/2016 Office visit Maribelvenkat Vieira UNDER PRESSER 09/28/2016 Office visit Maribel Faith Dariel UNDER PRESSER 09/26/2016 Office visit Maribel ValCharley Dariel ROBERTSP 08/29/2016 Office visit Maribel M. Dariel ROBERTSP 08/01/2016 Laboratory Maribel M. Dariel ROBERTSP 07/04/2016 Office visit Maribel ValCharley Dariel ROBERTSP 06/07/2016 Laboratory Maribel NealCharley Dariel ROBERTSP 06/06/2016 Office visit Maribel ROBERTSP 05/09/2016 Office visit Maribel ROBERTSP 03/07/2016 Office visit Marbiel ValCharley Dariel ROBERTSP 02/08/2016 Office visit Maribel ValCharley Dariel ROBERTSP 01/11/2016 Office visit Maribel ROBERTSP 12/14/2015 Office visit Maribel Vianney ROBERTSP 11/14/2015 Office visit Maribel MCharley ROBERTSP 10/03/2015 Office visit Maribel Vianney ROBERTSP 09/06/2015 Laboratory Maribel ROBERTSP 08/31/2015 Office visit Maribel ROBERTSP 08/03/2015 Office visit Maribel ROBERTSP 07/06/2015 Office visit Maribel ROBERTSP 06/09/2015 Nurse visit Maribel Vieira UNDER PRESSER 05/17/2015 Office visit Maribel ROBERTSP 04/25/2015 Office [...]
--- OUTSIDE RECORDS SUMMARY | 2018-07-23 09:52 | XMS REPORT ---
Author Author Maribel Vieira [facility] Address [address] [facility] [address] [facility] [address] [place], [place] [id number] Care Team Providers Care Gymnasium Teacher Name Role Phone Maribel Vieira PCP Elias [...] Start Date Estimated Completion Date SIG Comments Nitrostat 0.4 mg sublingual tablet, sublingual place 1 tablet (0.4 mg) by buccal route at the first sign of an attack; no more than 3 tablets are recommended within a 15 minute period. Zetia 10 mg oral tablet take 1 [...] HOURS NEEDED FOR SPASM. FOR 30 DAYS Symbicort 160-4.5 mcg/actuation inhalation HFA aerosol inhaler 10/19/2015 inhale 2 puffs by inhalation route 2 times per day in the morning and evening Ranexa 1,000 mg oral tablet extended release 12 hr 02/01/2016 take 1 tablet (1,000 mg) by oral route 2 times per day ramipril 10 mg oral capsule 02/01/2016 take 1 capsule (10 mg) by oral route once daily ramipril 10 mg oral capsule 05/10/2016 take 1 capsule (10 mg) by oral route once daily Symbicort 160-4.5 mcg/actuation inhalation HFA aerosol inhaler 06/05/2016 INHALE 2 PUFFS TWO TIMES A DAY IN THE MORNING AND IN THE EVENING ramipril 10 mg oral capsule 07/30/2016 TAKE [...] mg ) by oral route once daily ProAir HFA 90 mcg/actuation inhalation HFA aerosol inhaler 11/26/2017 INHALE 1 - 2 PUFFS BY INHALATION ROUTE EVERY 4-6 HOURS NEEDED Ranexa 1,000 mg oral tablet extended release [...] 30 days Percocet 10-325 mg oral tablet 06/11/2018 07/11/2018 take 1 tablet by oral route every 6 hours as needed for 30 days Name Start Date Expiration Date SIG [...] by 0.5 mg weekly - called to [place] [facility] potassium chloride 10 mEq oral tablet [...] disease) Active 07/18/2017 Cervical pain Active 04/16/2018 Vital Signs Date Time BP-Sys(mm[Hg] BP-Ellie(mm[Hg]) HR(bpm) RR(rpm) Temp WT HT HC BMI BSA BMI Percentile O2 Sat(%) 05/14/2018 1:12:00 PM 140 mmHg 82 mmHg [...] rpm 97.2 F 309.5 lbs 76 in 37.67 kg/m2 2.74 m2 96 % 12/03/2017 1:30:00 PM 142 mmHg 88 mmHg 69 bpm 18 rpm 98.8 F 315.75 lbs 76 in 38.4339 kg/m 2.7713 m 96 % 11/06/2017 1:24:00 PM 136 mmHg 78 mmHg 78 bpm 17 rpm 98.7 F 311.5 lbs 76 in 37.92 kg/m2 2.75 m2 98 % 10/09/2017 1:36:00 PM 116 mmHg 66 mmHg 68 bpm 17 rpm 97.7 F 311.5 lbs 76 in 37.9166 kg/m 2.7525 m 95 % 10/09/2017 1:36:00 PM 116 mmHg 66 mmHg 68 bpm 17 rpm 97.7 F 311.5 lbs 76 in 37.9166 kg/m 2.7525 m 95 % 09/11/2017 1:20:00 PM [...] F 321 lbs 75 in 40.12 kg/m2 2.78 m2 10/22/2013 8:54:00 AM 152 mmHg 80 mmHg 84 bpm 18 rpm 96.8 F 332 lbs 75.5 in 40.9489 kg/m 2.8323 m 09/24/2013 8:33:00 AM 134 mmHg 80 mmHg 82 bpm 16 rpm 96 F 322.25 lbs 75.5 in 39.75 kg/m2 2.79 m2 08/27/2013 9:07:00 AM 108 mmHg 60 mmHg 72 bpm 16 rpm 325 lbs 75.5 in 40.0855 kg/m 2.8023 m 07/02/2013 10:25:00 AM 124 mmHg 70 mmHg 64 bpm 16 rpm 94.9 F 328 lbs 75.5 in 40.46 kg/m2 2.82 m2 06/04/2013 8:40:00 AM 150 mmHg 80 mmHg 78 bpm 16 rpm 97.4 F 333.25 lbs 75.5 in 41.1031 kg/m 2.8376 m 10/09/2012 8:33:00 AM 110 mmHg 82 mmHg 84 bpm 18 rpm 96.3 F 315 lbs 75 in 39.37 kg/m2 2.75 m2 05/08/2010 12:54:00 PM 137 mmHg 87 mmHg [...] AUTO W/O SCOPE Reviewed 05/10/2016 12:00 AM [facility] MEDICARE - flu vaccine administration Reviewed 05/10/2016 [...] 05/21/2017 12:00 AM HEPATITIS C AB TEST Returned 05/21/2017 12:00 AM [facility] MEDICARE - flu vaccine administration Reviewed 05/21/2017 12:00 AM INFLUENZA VAC 4 VALENT PRSRV FREE 3 YRS PLUS IM Reviewed 07/24/2017 12:00 AM COLLECTION VENOUS BLOOD VENIPUNCTURE Reviewed 07/24/2017 12:00 AM COMPLETE CBC W/AUTO DIFF WBC Returned 07/24/2017 12:00 AM COMPREHEN METABOLIC PANEL Returned 07/24/2017 12:00 AM ASSAY THYROID STIM HORMONE Returned 11/06/2017 12:00 AM GLYCOSYLATED HEMOGLOBIN TEST Reviewed 11/06/2017 12:00 AM COLLECTION VENOUS BLOOD VENIPUNCTURE Reviewed 10/09/2012 12:00 AM DRAIN/INJ JOINT/BURSA W/O US Reviewed 10/09/2012 12:00 AM Kenalog, Per 10 Mg [facility]#5624-5212-06 Reviewed 12/30/2017 12:00 AM COMPLETE CBC W/AUTO DIFF WBC Reviewed 12/30/2017 12:00 AM COMPREHEN METABOLIC PANEL Reviewed 12/30/2017 12:00 AM URINALYSIS AUTO W/SCOPE Reviewed 12/30/2017 12:00 AM ASSAY OF MAGNESIUM Reviewed 12/30/2017 12:00 AM COLLECTION VENOUS BLOOD VENIPUNCTURE Reviewed 04/16/2018 12:00 AM X-RAY EXAM NECK SPINE 2-3 VW Returned 04/16/2018 12:00 AM X-RAY EXAM L-S SPINE 2/3 VWS Reviewed 04/16/2018 12:00 AM [facility] MEDICARE - flu vaccine administration Reviewed 04/16/2018 12:00 AM [facility] MEDIC[facility] - pneumonia vaccine administration Reviewed 04/16/2018 [...] 12:00 AM SYNVISC-ONE, Per 1 Mg (6ml) [facility] [id number] Reviewed 05/06/2014 12:00 AM OFFICE/OUTPATIENT VISIT EST Reviewed 06/03/2014 12:00 AM DRAIN/INJ JOINT/BURSA W/O US Reviewed 06/03/2014 12:00 AM SYNVISC-ONE, Per 1 Mg (6ml) [facility] [address]-04 Reviewed 08/26/2014 12:00 AM RADIOLOGIC EXAM SACROILIAC JOINTS 3/MORE VIEWS Reviewed 01/20/2015 12:00 AM DRAIN/INJ JOINT/BURSA W/O US Reviewed 01/20/2015 12:00 AM SYNVISC-ONE, Per 1 Mg (6ml) [facility] [address]-80 Reviewed 02/24/2015 12:00 AM DRAIN/INJ JOINT/BURSA W/O US Reviewed 02/24/2015 12:00 AM SYNVISC-ONE, Per 1 Mg (6ml) [facility] [address]-99 Reviewed Results Summary Date and Description Results [...] mL/min/1.73meGFR AA * >60 05/21/2017 3:05 PM Testosterone, Serum 353.0 ng/dLTestosterone,Free 6.88 ng/dL % Free Testosterone 1.950 % 11/06/2017 3:45 PM HGB A1C 7.0 %Est [...] eGFR 70 eGFR AA* >60 MAGNESIUM 2.3 History Of Immunizations Name Date Admin Mfg Name Mfg Code Trade Name Lot# Route Inj Vis Given Vis Pub CVX Influenza 05/10/2016 sanofi pasteur PMC Fluzone Quadrivalent [id number] Intramuscular Left Upper Arm 05/10/2016 02/04/2015 141 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/2013 Unknown 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 MSD PNEUMOVAX 23 [id number] Intramuscular Right Deltoid 04/16/2018 07/01/2018 33 History [...] 07/18/2017 Cervical pain 04/16/2018 s/p acdf 2012 Osteoarthrosis, lower leg Oct 09 2012 9:26AM [...] Feb 11 2014 10:05AM Radiculopathy, lumbosacral Sep 11 2014 9:48AM Postlaminectomy syndrome of lumbar [...] Aug 03 2015 1:55PM Radiculopathy, lumbar region b 2015 1:55PM Chronic Back Pain Aug 03 [...] Number Start Date Medicare RHC Medicare RHC [id number] Saturday, 2001 Medicare Part B Medicare Of [place] [id number] Saturday, 2001 Medicare Part A Medicare Part A [id number] Saturday, 2001 Medicare RHC Medicare RHC [id number] Saturday, 2001 Medicare Part A Medicare - Lab/Xray [id number] Saturday, December 29, 2001 History of Encounters Visit Date Visit Type Provider 05/15/2018 Laboratory Maribel GUARDADO 05/14/2018 Office visit Maribel GUARDADO 04/16/2018 Office visit Maribel GUARDADO 02/19/2018 Office visit Maribel GUARDADO 12/30/2017 Office visit Maribel GUARDADO 12/03/2017 Office visit Maribel GUARDADO 11/06/2017 Office visit Maribel GUARDADO 10/09/2017 Office visit Maribel GUARDADO 09/26/2017 Hospital Ros[facility] Marina MD 09/11/2017 Office visit Maribel Faith Dariel SHOP CLERK 08/14/2017 Office visit Maribel M. Dariel SHOP CLERK 08/07/2017 Office visit Maribel Faith Dariel SHOP CLERK 07/24/2017 Laboratory Maribel M. Dariel SHOP CLERK 07/17/2017 Office visit Maribel Faith Dariel ROBERTSP 06/19/2017 Office visit Maribel NealCharley Dariel SHOP CLERK 06/05/2017 Office visit Maribel Vieira SHOP CLERK 05/28/2017 Office visit Maribel ValCharley Dariel SHOP CLERK 05/21/2017 Office visit Maribel M. Dariel ROBERTSP 02/20/2017 Office visit Maribel M. Dariel SHOP CLERK 01/16/2017 Office visit Maribel NealCharley Dariel ROBERTSP 12/19/2016 Office visit Maribel ValCharley Dariel ROBERTSP 12/03/2016 Laboratory Maribel M. Dariel ROBERTSP 11/21/2016 Office visit Maribel Faith Dariel ROBERTSP 10/26/2016 Office visit Maribel ROBERTSP 10/04/2016 Office visit Maribel ROBERTSP 09/28/2016 Office visit Maribel ROBERTSP 09/26/2016 Office visit Maribel MCharley ROBERTSP 08/29/2016 Office visit Maribel M. Dariel ROBERTSP 08/01/2016 Laboratory Maribel ROBERTSP 07/04/2016 Office visit Maribel ROBERTSP 06/07/2016 Laboratory Maribel M. Dariel ROBERTSP 06/06/2016 Office visit Maribel ROBERTSP 05/09/2016 Office visit Maribel ROBERTSP 03/07/2016 Office visit Maribel ROBERTSP 02/08/2016 Office visit Maribel ROBERTSP 01/11/2016 Office visit Maribel ROBERTSP 12/14/2015 Office visit Maribel ROBERTSP 11/14/2015 Office visit Maribel ROBERTSP 10/03/2015 Office visit Maribel ROBERTSP 09/06/2015 Laboratory Maribel ROBERTSP 08/31/2015 Office visit Maribel ROBERTSP 08/03/2015 Office visit Maribel ROBERTSP 07/06/2015 Office visit Maribel ROBERTSP 06/09/2015 Nurse visit Maribel ROBERTSP 05/17/2015 Office visit Maribel ROBERTSP 04/25/2015 Office visit Maribel M. Dariel ROBERTSP 03/28/2015 Office visit Maribel NealCharley Dariel ROBERTSP 02/24/2015 Office visit Maribel NealCharley Dariel ROBERTSP 01/20/2015 Office visit Maribel Faith Dariel ROBERTSP 12/23/2014 Office visit Maribel Faith Dariel ROBERTSP 11/25/2014 Office visit Maribel Faith Dariel ROBERTSP 10/21/2014 Nurse visit Maribel ROBERTSP 09/29/2014 Office visit Maribel Vianney ROBERTSP 08/26/2014 Office visit Maribel Faith Dariel ROBERTSP 07/29/2014 Nurse visit Maribel ValCharley Dariel ROBERTSP 06/29/2014 Nurse visit Maribel ROBERTSP 06/03/2014 Office visit Maribel Vianney ROBERTSP 05/06/2014 Nurse visit Maribel ValCharley Dariel ROBERTSP 04/08/2014 Nurse visit Maribel ValCharley Dariel ROBERTSP 03/11/2014 Office visit Maribel ROBERTSP 02/11/2014 Office visit Maribel ROBERTSP 01/14/2014 Office visit Maribel ROBERTSP 12/17/2013 Office visit Maribel ROBERTSP 11/19/2013 Office visit Maribel ROBERTSP 10/22/2013 Office visit Maribel ROBERTSP 09/24/2013 Office visit Maribel ROBERTSP 08/27/2013 Office visit Maribel ROBERTSP 07/02/2013 Office visit Maribel GUARDADO 06/04/2013 Office visit Maribel GUARDADO 10/09/2012 Office visit Lloyd Oviedo MD 05/08/2010 Office visit Lloyd Oviedo MD 04/21/2010 Office visit Lloyd Oviedo MD
--- OUTSIDE RECORDS SUMMARY | 2018-07-23 09:54 | XMS REPORT ---
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 Name Role Phone Maribel Vieira PCP Elias [...] by 0.5 mg weekly - called to [place] potassium chloride 10 mEq oral tablet [...] AUTO W/O SCOPE Reviewed 05/10/2016 12:00 AM [facility] MED[facility]ARE - flu vaccine administration Reviewed 05/10/2016 [...] C AB TEST Returned 05/21/2017 12:00 AM [facility] MEDIC[facility] - flu vaccine administration Reviewed 05/21/2017 [...] AM Kenalog, Per 10 Mg [facility]#4352-4844-72 Reviewed 12/30/2017 12:00 AM COMPLETE CBC W/AUTO DIFF WBC Reviewed 12/30/2017 12:00 AM COMPREHEN METABOLIC PANEL Reviewed 12/30/2017 12:00 AM URINALYSIS AUTO W/SCOPE Reviewed 12/30/2017 12:00 AM ASSAY OF MAGNESIUM Reviewed 12/30/2017 12:00 AM COLLECTION VENOUS BLOOD VENIPUNCTURE Reviewed 04/16/2018 12:00 AM X-RAY EXAM NECK SPINE 2-3 VW Returned 04/16/2018 12:00 AM X-RAY EXAM L-S SPINE 2/3 VWS Reviewed 04/16/2018 12:00 AM [facility] MEDICARE - flu vaccine administration Reviewed 04/16/2018 12:00 AM [facility] MEDIC[facility] - pneumonia vaccine administration Reviewed 04/16/2018 [...] SYNVISC-ONE, Per 1 Mg (6ml) [facility] [address]-21 Reviewed 05/06/2014 12:00 AM OFFICE/OUTPATIENT VISIT EST Reviewed 06/03/2014 12:00 AM DRAIN/INJ JOINT/BURSA W/O US Reviewed 06/03/2014 12:00 AM SYNVISC-ONE, Per 1 Mg (6ml) [facility] [address]-28 Reviewed 08/26/2014 12:00 AM RADIOLOGIC EXAM SACROILIAC JOINTS 3/MORE VIEWS Reviewed 01/20/2015 12:00 AM DRAIN/INJ JOINT/BURSA W/O US Reviewed 01/20/2015 12:00 AM SYNVISC-ONE, Per 1 Mg (6ml) [facility] [address]-63 Reviewed 02/24/2015 12:00 AM DRAIN/INJ JOINT/BURSA W/O US Reviewed 02/24/2015 12:00 AM SYNVISC-ONE, Per 1 Mg (6ml) [facility] [id number] Reviewed Results Summary Date and Description Results [...] Influenza 05/10/2016 sanofi pasteur PMC Fluzone Quadrivalent [id number] Intramuscular Left Upper Arm 05/10/2016 02/04/2015 141 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/2013 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 MSD PNEUMOVAX 23 [id number] Intramuscular Right Deltoid 04/16/2018 07/01/2018 33 History [...] Other chronic pain Sep 11 2017 1:21PM Payers Insurance Name Company Name Plan Name Plan Number Policy Number Policy Group Number Start Date Medicare RHC Medicare RHC [id number] Saturday, 2001 Medicare Part B Medicare Of [place] [id number] Saturday, 2001 Medicare Part A Medicare Part A [id number] Saturday, 2001 Medicare RHC Medicare RHC [id number] Saturday, 2001 Medicare Part A Medicare - Lab/Xray [id number] Saturday, December 29, 2001 History of Encounters Visit Date Visit Type Provider 05/15/2018 Laboratory Maribel GUARDADO 05/14/2018 Office visit Maribel GUARDADO 04/16/2018 Office visit Maribel GUARDADO 02/19/2018 Office visit Maribel GUARDADO 12/30/2017 Office visit Maribel GUARDADO 12/03/2017 Office visit Maribel GUARDADO 11/06/2017 Office visit Maribel GUARDADO 10/09/2017 Office visit Maribel GUARDADO 09/26/2017 [facility] Rosendo Marina MD 09/11/2017 Office visit Maribel GUARDADO 08/14/2017 Office visit Maribel Faith Dariel BROKE BEATER 08/07/2017 Office visit Maribel Faith Dariel BROKE BEATER 07/24/2017 Laboratory Maribel M. Dariel BROKE BEATER 07/17/2017 Office visit Maribel Faith Dariel BROKE BEATER 06/19/2017 Office visit Maribel Vieira BROKE BEATER 06/05/2017 Office visit Maribel Faith Dariel BROKE BEATER 05/28/2017 Office visit Maribel ValCharley Dariel BROKE BEATER 05/21/2017 Office visit Maribel M. Dariel ROBERTSP 02/20/2017 Office visit Maribel Faith Dariel BROKE BEATER 01/16/2017 Office visit Maribel Vieira BROKE BEATER 12/19/2016 Office visit Maribel Faith Dariel BROKE BEATER 12/03/2016 Laboratory Maribel ValCharley Dariel BROKE BEATER 11/21/2016 Office visit Maribel Faith Dariel ROBERTSP 10/26/2016 Office visit Maribel Faith Dariel ROBERTSP 10/04/2016 Office visit Maribel Faith Dariel BROKE BEATER 09/28/2016 Office visit Maribel Vianney ROBERTSP 09/26/2016 Office visit Maribel Vianney ROBERTSP 08/29/2016 Office visit Maribel Faith Dariel ROBERTSP 08/01/2016 Laboratory Maribel Vieira BROKE BEATER 07/04/2016 Office visit Maribel Faith Dariel ROBERTSP 06/07/2016 Laboratory Maribel M. Dariel BROKE BEATER 06/06/2016 Office visit Maribel Vianney ROBERTSP 05/09/2016 Office visit Maribel Faith Dariel ROBERTSP 03/07/2016 Office visit Maribel M. Dariel ROBERTSP 02/08/2016 Office visit Maribel ROBERTSP 01/11/2016 Office visit Maribel ROBERTSP 12/14/2015 Office visit Maribel M. Dariel ROBERTSP 11/14/2015 Office visit Maribel Vianney RBOERTSP 10/03/2015 Office visit Maribel NealCharley Dariel BROKE BEATER 09/06/2015 Laboratory Maribel Vieira BROKE BEATER 08/31/2015 Office visit Maribel ROBERTSP 08/03/2015 Office visit Maribel Vieira BROKE BEATER 07/06/2015 Office visit Maribel ROBERTSP 06/09/2015 Nurse visit Maribel ROBERTSP 05/17/2015 Office visit Maribel Vieira BROKE BEATER 04/25/2015 Office visit Maribel ROBERTSP 03/28/2015 Office visit Maribel Faith Dariel ROBERTSP 02/24/2015 Office visit Maribel M. Dariel ROBERTSP 01/20/2015 Office visit Maribel Faith Dariel ROBERTSP 12/23/2014 Office visit Maribel Faith Dariel ROBERTSP 11/25/2014 Office visit Maribel Vieira BROKE BEATER 10/21/2014 Nurse visit Maribel Faith Dariel ROBERTSP 09/29/2014 Office visit Maribel ValCharley Dariel ROBERTSP 08/26/2014 Office visit Maribel ValCharley Dariel ROBERTSP 07/29/2014 Nurse visit Maribel Faith Dariel ROBERTSP 06/29/2014 Nurse visit Maribel Faith Dariel ROBERTSP 06/03/2014 Office visit Maribel M. Dariel ROBERTSP 05/06/2014 Nurse visit Maribel ValCharley Dariel ROBERTSP 04/08/2014 Nurse visit Maribel Faith Dariel ROBERTSP 03/11/2014 Office visit Maribel Vieira BROKE BEATER 02/11/2014 Office visit Maribel M. Dariel ROBERTSP 01/14/2014 Office visit Maribel ROBERTSP 12/17/2013 Office visit Maribel Vianney ROBERTSP 11/19/2013 Office visit Maribel ValCharley Dariel ROBERTSP 10/22/2013 Office visit Maribel ValCharley Dariel ROBERTSP 09/24/2013 Office visit Maribel ROBERTSP 08/27/2013 Office visit Maribel ROBERTSP 07/02/2013 Office visit Maribel ROBERTSP 06/04/2013 Office visit Maribel ROBERTSP 10/09/2012 Office visit Lloyd Oviedo MD 05/08/2010 Office visit Lloyd Oviedo MD 04/21/2010 Office visit Lloyd Oviedo MD
--- OUTSIDE RECORDS SUMMARY | 2018-07-23 09:56 | XMS REPORT ---
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 Name Role Phone Maribel Vieira PCP Elias [...] by 0.5 mg weekly - called to [facility] potassium chloride 10 mEq oral tablet [...] AUTO W/O SCOPE Reviewed 05/10/2016 12:00 AM [facility] - flu vaccine administration Reviewed [...] C AB TEST Returned 05/21/2017 12:00 AM [facility] - flu vaccine administration Reviewed 05/21/2017 12:00 AM INFLUENZA VAC 4 VALENT PRSRV FREE 3 YRS PLUS IM Reviewed 07/24/2017 12:00 AM COLLECTION VENOUS BLOOD VENIPUNCTURE Reviewed 07/24/2017 12:00 AM COMPLETE CBC W/AUTO DIFF WBC Returned 07/24/2017 12:00 AM COMPREHEN METABOLIC PANEL Returned 07/24/2017 12:00 AM ASSAY THYROID STIM HORMONE Returned 09/13/2017 12:00 AM BREATHING CAPACITY TEST Returned 09/13/2017 12:00 AM MRI JNT OF LWR EXTRE W/O DYE Reviewed 11/06/2017 12:00 AM GLYCOSYLATED HEMOGLOBIN TEST Reviewed 11/06/2017 12:00 AM COLLECTION VENOUS BLOOD VENIPUNCTURE Reviewed 10/09/2012 12:00 AM DRAIN/INJ JOINT/BURSA W/O US Reviewed 10/09/2012 12:00 AM Kenalog, Per 10 Mg [facility]#6386-9111-31 Reviewed 12/30/2017 12:00 AM COMPLETE CBC W/AUTO DIFF WBC Reviewed 12/30/2017 12:00 AM COMPREHEN METABOLIC PANEL Reviewed 12/30/2017 12:00 AM URINALYSIS AUTO W/SCOPE Reviewed 12/30/2017 12:00 AM ASSAY OF MAGNESIUM Reviewed 12/30/2017 12:00 AM COLLECTION VENOUS BLOOD VENIPUNCTURE Reviewed 04/16/2018 12:00 AM X-RAY EXAM NECK SPINE 2-3 VW Returned 04/16/2018 12:00 AM X-RAY EXAM L-S SPINE 2/3 VWS Reviewed 04/16/2018 12:00 AM [facility] - flu vaccine administration Reviewed 04/16/2018 12:00 AM [facility] MED[facility] - pneumonia vaccine administration Reviewed 04/16/2018 12:00 AM INFLUENZA VAC 4 VALENT PRSRV FREE 3 YRS PLUS IM Reviewed 04/16/2018 12:00 AM PNEUMOCOCCAL POLYSAC VACCINE 23-V 2 YRS/>SUBQ/IM Reviewed 05/15/2018 12:00 AM COLLECTION VENOUS BLOOD VENIPUNCTURE Reviewed 05/15/2018 12:00 AM PSA (Screening) Reviewed 05/15/2018 12:[address] LUMBAR SPINE W/DYE Reviewed 06/04/2013 12:00 AM Drug Screen (Medicare) [...] Per 1 Mg (6ml) [facility] [address]-49 Reviewed 05/06/2014 12:00 AM OFFICE/OUTPATIENT VISIT EST Reviewed 06/03/2014 12:00 AM DRAIN/INJ JOINT/BURSA W/O US Reviewed 06/03/2014 12:00 AM SYNVISC-ONE, Per 1 Mg (6ml) [facility] [address]-65 Reviewed 08/26/2014 12:00 AM RADIOLOGIC EXAM SACROILIAC JOINTS 3/MORE VIEWS Reviewed 01/20/2015 12:00 AM DRAIN/INJ JOINT/BURSA W/O US Reviewed 01/20/2015 12:00 AM SYNVISC-ONE, Per 1 Mg (6ml) [facility] [address]-39 Reviewed 02/24/2015 12:00 AM DRAIN/INJ JOINT/BURSA W/O US Reviewed 02/24/2015 12:00 AM SYNVISC-ONE, Per 1 Mg (6ml) [facility] [address]-50 Reviewed Results Summary Date and Description Results [...] Influenza 05/10/2016 sanofi pasteur PMC Fluzone Quadrivalent [id number] Intramuscular Left Upper Arm 05/10/2016 02/04/2015 141 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/2013 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 MSD PNEUMOVAX 23 [id number] Intramuscular Right Deltoid 04/16/2018 07/01/2018 33 History [...] every day smoker Sep 11 2017 1:21PM Chronic Obstructive Pulmonary Disease Sep 11 2017 1:21PM Sprain of unspecified [...] every day smoker Aug 14 2017 1:24PM Payers Insurance Name Company Name Plan Name Plan Number Policy Number Policy Group Number Start Date Medicare RHC Medicare RHC [id number] Saturday, 2001 Medicare Part B Medicare Of [place] [id number] Saturday, 2001 Medicare Part A Medicare Part A [id number] Saturday, 2001 Medicare RHC Medicare RHC [id number] Saturday, 2001 Medicare Part A Medicare - Lab/Xray [id number] Saturday, December 29, 2001 History of Encounters Visit Date Visit Type Provider 05/15/2018 Laboratory Maribel GUARDADO 05/14/2018 Office visit Maribel GUARDADO 04/16/2018 Office visit Maribel GUARDADO 02/19/2018 Office visit Maribel GUARDADO 12/30/2017 Office visit Maribel GUARDADO 12/03/2017 Office visit Maribel GUARDADO 11/06/2017 Office visit Maribel GUARDADO 10/09/2017 Office visit Maribel GUARDADO 09/26/2017 [facility] Rosendo Marina MD 09/11/2017 Office visit Maribel GUARDADO 08/14/2017 Office visit Maribel GUARDADO 08/07/2017 Office visit Maribel Vieira ASPHALT PAVER 07/24/2017 Laboratory Maribel Vieira ASPHALT PAVER 07/17/2017 Office visit Maribel M. Dariel ASPHALT PAVER 06/19/2017 Office visit Maribel Faith Dariel ROBERTSP 06/05/2017 Office visit Maribel Vieira ASPHALT PAVER 05/28/2017 Office visit Maribel Faith Dariel ASPHALT PAVER 05/21/2017 Office visit Maribel ValCharley Dariel ROBERTSP 02/20/2017 Office visit Maribel M. Dariel ROBERTSP 01/16/2017 Office visit Maribel Vieira ASPHALT PAVER 12/19/2016 Office visit Maribel Faith Dariel ASPHALT PAVER 12/03/2016 Laboratory Maribel M. Dariel ASPHALT PAVER 11/21/2016 Office visit Maribel M. Dariel ROBERTSP 10/26/2016 Office visit Maribel Faith Dariel ROBERTSP 10/04/2016 Office visit Maribel Faith Dariel ROBERTSP 09/28/2016 Office visit Maribel Faith Dariel ROBERTSP 09/26/2016 Office visit Maribel ROBERTSP 08/29/2016 Office visit Maribel Vianney ROBERTSP 08/01/2016 Laboratory Maribel Vieira ASPHALT PAVER 07/04/2016 Office visit Maribel Faith Dariel ROBERTSP 06/07/2016 Laboratory Maribel ValCharley Dariel ROBERTSP 06/06/2016 Office visit Maribel NealCharley Dariel ROBERTSP 05/09/2016 Office visit Maribel M. Dariel ROBERTSP 03/07/2016 Office visit Maribel M. Dariel ROBERTSP 02/08/2016 Office visit Maribel ROBERTSP 01/11/2016 Office visit Maribel ROBERTSP 12/14/2015 Office visit Maribel ROBERTSP 11/14/2015 Office visit Maribel M. Dariel ROBERTSP 10/03/2015 Office visit Maribel M. Dariel ASPHALT PAVER 09/06/2015 Laboratory Maribel ValCharley Dariel ROBERTSP 08/31/2015 Office visit Maribel ROBERTSP 08/03/2015 Office visit Maribel ROBERTSP 07/06/2015 Office visit Maribel ROBERTSP 06/09/2015 Nurse visit Maribel ROBERTSP 05/17/2015 Office visit Mraibel ROBERTSP 04/25/2015 Office visit Maribel ROBERTSP 03/28/2015 Office visit Maribel ROBERTSP 02/24/2015 Office visit Maribel M. Dariel ROBERTSP 01/20/2015 Office visit Maribel Faith Dariel ROBERTSP 12/23/2014 Office visit Maribel Faith Dariel ROBERTSP 11/25/2014 Office visit Maribel Faith Dariel ROBERTSP 10/21/2014 Nurse visit Maribel Faith Dariel ROBERTSP 09/29/2014 Office visit Maribel Faith Dariel ROBERTSP 08/26/2014 Office visit Maribel Faith Dariel ROBERTSP 07/29/2014 Nurse visit Maribel Faith Dariel ROBERTSP 06/29/2014 Nurse visit Maribel Vieira ASPHALT PAVER 06/03/2014 Office visit Maribel Faith Dariel ROBERTSP 05/06/2014 Nurse visit Maribel Faith Dariel ROBERTSP 04/08/2014 Nurse visit Maribel Faith Dariel ROBERTSP 03/11/2014 Office visit Maribel Faith Dariel ROBERTSP 02/11/2014 Office visit Maribel M. Dariel ROBERTSP 01/14/2014 Office visit Maribel M. Dariel ROBERTSP 12/17/2013 Office visit Maribel ROBERTSP 11/19/2013 Office visit Maribel ROBERTSP 10/22/2013 Office visit Maribel ValCharley ROBERTSP 09/24/2013 Office visit Maribel Vianney Dariel ROBERTSP 08/27/2013 Office visit Maribel ROBERTSP 07/02/2013 Office visit Maribel ROBERTSP 06/04/2013 Office visit Maribel ROBERTSP 10/09/2012 Office visit Lloyd Oviedo MD 05/08/2010 Office visit Lloyd Oviedo MD 04/21/2010 Office visit Lloyd Oviedo MD
--- OUTSIDE RECORDS SUMMARY | 2018-07-23 09:58 | XMS REPORT ---
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 Percocet 10-325 mg oral tablet 05/14/2018 06/13/2018 take 1 tablet by oral route every 6 hours as needed for 30 days Ambien 10 mg oral tablet 05/19/2018 take 1 tablet (10 mg) by oral route once daily at bedtime Lyrica 100 mg oral capsule 05/19/2018 08/17/2018 take 1 capsule (100 mg) by oral route 3 times per day for 30 days Name Start Date Expiration [...] by 0.5 mg weekly - called to [facility] potassium chloride 10 mEq oral tablet [...] rpm 97.6 F 136.75 lbs 76 in 16.65 kg/m2 1.8238 m 96 % 08/07/2017 1:13:00 PM 131 mmHg 80 mmHg 75 bpm 20 rpm 98.7 F 311 lbs 76 in 37.8557 kg/m 2.75 m2 96 % 07/17/2017 1:21:00 PM 128 mmHg 72 mmHg 78 bpm 17 rpm 97.8 F 316.75 lbs 76 in 38.56 kg/m2 2.7756 m 93 % 06/19/2017 1:45:00 PM 132 mmHg 68 mmHg 77 bpm 20 rpm 69.8 F 310.25 lbs 76 in 37.7644 kg/m 2.75 m2 95 % 06/05/2017 2:51:00 PM 128 mmHg 82 mmHg 73 bpm 18 rpm 97.2 F 314.75 lbs 76 in 38.31 kg/m2 2.7669 m 96 % 05/28/2017 1:49:00 PM 130 mmHg 76 mmHg 72 bpm 18 rpm 97.2 F 315.5 lbs 76 in 38.4035 kg/m 2.77 m2 95 % 05/21/2017 1:36:00 PM 129 mmHg 70 mmHg 62 bpm 16 rpm 97.2 F 319.75 lbs 76 in 38.92 kg/m2 2.7888 m 100 % 02/20/2017 1:32:00 PM 130 mmHg 76 mmHg 72 bpm 17 rpm 97.7 F 312.75 lbs 76 in 38.0687 kg/m 2.76 m2 97 % 01/16/2017 1:31:00 PM 128 mmHg 70 mmHg 76 bpm 17 rpm 97.6 F 206.5 lbs 76 in 25.14 kg/m2 2.2411 m 97 % 12/19/2016 1:41:00 PM 132 mmHg 70 mmHg 71 bpm 18 rpm 97.7 F 306 lbs 76 in 37.2471 kg/m 2.73 m2 96 % 11/21/2016 1:47:00 PM 142 mmHg 74 mmHg 80 bpm 17 rpm 97.6 F 313.25 lbs 76 in 38.13 kg/m2 2.7603 m 95 % 10/26/2016 10:20:00 AM [...] rpm 97.2 F 322 lbs 76 in 39.1947 kg/m 2.7986 m 06/03/2014 9:20:00 AM 110 mmHg 60 mmHg 70 bpm 16 rpm 96 F 320 lbs 75.5 in 39.47 kg/m2 2.78 m2 03/11/2014 9:32:00 AM 128 mmHg 74 mmHg 66 bpm 14 rpm 96.1 F 324 lbs 75.5 in 39.9622 kg/m 2.798 m 02/11/2014 10:04:00 AM 144 mmHg 82 mmHg 60 bpm 16 rpm 97 F 319 lbs 75.5 in 39.35 kg/m2 2.78 m2 01/14/2014 10:04:00 AM 142 mmHg 80 mmHg 72 bpm 16 rpm 96.8 F 323 lbs 75.5 in 39.8389 kg/m 2.7937 m 12/17/2013 9:18:00 AM 124 mmHg 80 mmHg 84 bpm 16 rpm 97 F 319 lbs 75.5 in 39.35 kg/m2 2.78 m2 11/19/2013 10:10:00 AM 160 mmHg 90 mmHg 78 bpm 16 rpm 97 F 321 lbs 75 in 40.1218 kg/m 2.7758 m 10/22/2013 8:54:00 AM 152 mmHg 80 mmHg 84 bpm 18 rpm 96.8 F 332 lbs 75.5 in 40.95 kg/m2 2.83 m2 09/24/2013 8:33:00 AM 134 mmHg 80 mmHg 82 bpm 16 rpm 96 F 322.25 lbs 75.5 in 39.7464 kg/m 2.7904 m 08/27/2013 9:07:00 AM 108 mmHg 60 mmHg 72 bpm 16 rpm 325 lbs 75.5 in 40.09 kg/m2 2.80 m2 07/02/2013 10:25:00 AM 124 mmHg 70 mmHg 64 bpm 16 rpm 94.9 F 328 lbs 75.5 in 40.4556 kg/m 2.8152 m 06/04/2013 8:40:00 AM 150 mmHg 80 mmHg 78 bpm 16 rpm 97.4 F 333.25 lbs 75.5 in 41.10 kg/m2 2.84 m2 10/09/2012 8:33:00 AM 110 mmHg 82 mmHg 84 bpm 18 rpm 96.3 F 315 lbs 75 in 39.3719 kg/m 2.7497 m 05/08/2010 12:54:00 PM 137 mmHg [...] AUTO W/O SCOPE Reviewed 05/10/2016 12:00 AM [facility] MEDICARE - flu vaccine administration Reviewed 05/10/2016 [...] C AB TEST Returned 05/21/2017 12:00 AM [facility] MEDICARE - flu vaccine administration Reviewed 05/21/2017 [...] 10/09/2012 12:00 AM Kenalog, Per 10 Mg [facility]#3934-5254-46 Reviewed 12/30/2017 12:00 AM COMPLETE CBC W/AUTO DIFF WBC Reviewed 12/30/2017 12:00 AM COMPREHEN METABOLIC PANEL Reviewed 12/30/2017 12:00 AM URINALYSIS AUTO W/SCOPE Reviewed 12/30/2017 12:00 AM ASSAY OF MAGNESIUM Reviewed 12/30/2017 12:00 AM COLLECTION VENOUS BLOOD VENIPUNCTURE Reviewed 04/16/2018 12:00 AM X-RAY EXAM NECK SPINE 2-3 VW Returned 04/16/2018 12:00 AM X-RAY EXAM L-S SPINE 2/3 VWS Reviewed 04/16/2018 12:00 AM [facility] MEDICARE - flu vaccine administration Reviewed 04/16/2018 12:00 AM [facility] MEDICARE - pneumonia vaccine administration Reviewed 04/16/2018 [...] 12:00 AM SYNVISC-ONE, Per 1 Mg (6ml) [facility] [address]-47 Reviewed 05/06/2014 12:00 AM OFFICE/OUTPATIENT VISIT EST Reviewed 06/03/2014 12:00 AM DRAIN/INJ JOINT/BURSA W/O US Reviewed 06/03/2014 12:00 AM SYNVISC-ONE, Per 1 Mg (6ml) [facility] [address]-78 Reviewed 08/26/2014 12:00 AM RADIOLOGIC EXAM SACROILIAC JOINTS 3/MORE VIEWS Reviewed 01/20/2015 12:00 AM DRAIN/INJ JOINT/BURSA W/O US Reviewed 01/20/2015 12:00 AM SYNVISC-ONE, Per 1 Mg (6ml) [facility] [address]-32 Reviewed 02/24/2015 12:00 AM DRAIN/INJ JOINT/BURSA W/O US Reviewed 02/24/2015 12:00 AM SYNVISC-ONE, Per 1 Mg (6ml) [facility] [address]-85 Reviewed Results Summary Date and Description Results [...] Influenza 05/10/2016 sanofi pasteur PMC Fluzone Quadrivalent [id number] Intramuscular Left Upper Arm 05/10/2016 02/04/2015 141 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/2013 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 MSD PNEUMOVAX 23 [id number] Intramuscular Right Deltoid 04/16/2018 07/01/2018 33 History [...] 1:14PM Radiculopathy, lumbosacral May 14 2018 1:14PM Payers Insurance Name Company Name Plan Name Plan Number Policy Number Policy Group Number Start Date Medicare RHC Medicare RHC [id number] Saturday, 2001 Medicare Part B Medicare Of [place] [id number] Saturday, 2001 Medicare Part A Medicare Part A [id number] Saturday, 2001 Medicare RHC Medicare RHC [id number] Saturday, 2001 Medicare Part A Medicare - Lab/Xray [id number] Saturday, December 29, 2001 History of Encounters [...] visit Maribel GUARDADO 05/21/2017 Office visit Maribel Vieira LOGGING TRACTOR OPERATOR SWAMP 02/20/2017 Office visit Maribel Vieira LOGGING TRACTOR OPERATOR SWAMP 01/16/2017 Office visit Maribel Faith Dariel LOGGING TRACTOR OPERATOR SWAMP 12/19/2016 Office visit Maribel Vieira LOGGING TRACTOR OPERATOR SWAMP 12/03/2016 Laboratory Maribel Vieira LOGGING TRACTOR OPERATOR SWAMP 11/21/2016 Office visit Maribel Vieira LOGGING TRACTOR OPERATOR SWAMP 10/26/2016 Office visit Maribel M. Dariel LOGGING TRACTOR OPERATOR SWAMP 10/04/2016 Office visit Maribel Faith Dariel LOGGING TRACTOR OPERATOR SWAMP 09/28/2016 Office visit Maribel Vieira LOGGING TRACTOR OPERATOR SWAMP 09/26/2016 Office visit Maribel Vieira LOGGING TRACTOR OPERATOR SWAMP 08/29/2016 Office visit Maribel Vieira LOGGING TRACTOR OPERATOR SWAMP 08/01/2016 Laboratory Maribel Vieira LOGGING TRACTOR OPERATOR SWAMP 07/04/2016 Office visit Maribel Faith Dariel ROBERTSP 06/07/2016 Laboratory Maribel Vieira LOGGING TRACTOR OPERATOR SWAMP 06/06/2016 Office visit Maribel Faith Dariel ROBERTSP 05/09/2016 Office visit Maribel ValCharley Dariel ROBERTSP 03/07/2016 Office visit Maribel M. Dariel ROBERTSP 02/08/2016 Office visit Maribel Faith Dariel ROBERTSP 01/11/2016 Office visit Maribel Faith Dariel ROBERTSP 12/14/2015 Office visit Maribel Faith Dariel ROBERTSP 11/14/2015 Office visit Maribel Faith Dariel ROBERTSP 10/03/2015 Office visit Maribel Faith Dariel ROBERTSP 09/06/2015 Laboratory Maribel Vieira LOGGING TRACTOR OPERATOR SWAMP 08/31/2015 Office visit Maribel Faith Dariel ROBERTSP 08/03/2015 Office visit Maribel Vianney ROBERTSP 07/06/2015 Office visit Maribel Vieira LOGGING TRACTOR OPERATOR SWAMP 06/09/2015 Nurse visit Maribel Vianney Dariel LOGGING TRACTOR OPERATOR SWAMP 05/17/2015 Office visit Maribel M. Dariel LOGGING TRACTOR OPERATOR SWAMP 04/25/2015 Office visit Maribel Vianney Dariel ROBERTSP 03/28/2015 Office visit Maribel ROBERTSP 02/24/2015 Office visit Maribel ROBERTSP 01/20/2015 Office visit Maribel NealCharley Dariel ROBERTSP 12/23/2014 Office visit Maribel ROBERTSP 11/25/2014 Office visit Maribel Vieira LOGGING TRACTOR OPERATOR SWAMP 10/21/2014 Nurse visit Maribel Vieira LOGGING TRACTOR OPERATOR SWAMP 09/29/2014 Office visit Maribel ROBERTSP 08/26/2014 Office visit Maribel ROBERTSP 07/29/2014 Nurse visit Maribel ROBERTSP 06/29/2014 Nurse visit Maribel ROBERTSP 06/03/2014 Office visit Maribel ROBERTSP 05/06/2014 Nurse visit Maribel ROBERTSP 04/08/2014 Nurse visit Maribel Vianney Vieira [facility] 03/11/2014 Office visit Maribel ROBERTSP 02/11/2014 Office [...]
--- OUTSIDE RECORDS SUMMARY | 2018-07-23 09:59 | XMS REPORT ---
Author Author Maribel Vieira [facility] Address [address] [facility] [address] [place], [place] [id number] Care Team Providers Care Fixed Income Manager Name Role Phone Maribel Vieira PCP Elias [...] by 0.5 mg weekly - called to [place] pharm potassium chloride 10 mEq oral tablet [...] AUTO W/O SCOPE Reviewed 05/10/2016 12:00 AM [facility] - flu vaccine administration Reviewed 05/10/2016 [...] C AB TEST Returned 05/21/2017 12:00 AM [facility] - flu vaccine administration Reviewed 05/21/2017 [...] 10/09/2012 12:00 AM Kenalog, Per 10 Mg [facility]#0799-7257-40 Reviewed 12/30/2017 12:00 AM COMPLETE CBC W/AUTO DIFF WBC Reviewed 12/30/2017 12:00 AM COMPREHEN METABOLIC PANEL Reviewed 12/30/2017 12:00 AM URINALYSIS AUTO W/SCOPE Reviewed 12/30/2017 12:00 AM ASSAY OF MAGNESIUM Reviewed 12/30/2017 12:00 AM COLLECTION VENOUS BLOOD VENIPUNCTURE Reviewed 04/16/2018 12:00 AM X-RAY EXAM NECK SPINE 2-3 VW Returned 04/16/2018 12:00 AM X-RAY EXAM L-S SPINE 2/3 VWS Reviewed 04/16/2018 12:00 AM [facility] - flu vaccine administration Reviewed 04/16/2018 12:00 AM [facility] - pneumonia vaccine administration Reviewed 04/16/2018 [...] 12:00 AM SYNVISC-ONE, Per 1 Mg (6ml) [facility] [address]-03 Reviewed 05/06/2014 12:00 AM OFFICE/OUTPATIENT VISIT EST Reviewed 06/03/2014 12:00 AM DRAIN/INJ JOINT/BURSA W/O US Reviewed 06/03/2014 12:00 AM SYNVISC-ONE, Per 1 Mg (6ml) [facility] [id number] Reviewed 08/26/2014 12:00 AM RADIOLOGIC EXAM SACROILIAC JOINTS 3/MORE VIEWS Reviewed 01/20/2015 12:00 AM DRAIN/INJ JOINT/BURSA W/O US Reviewed 01/20/2015 12:00 AM SYNVISC-ONE, Per 1 Mg (6ml) [facility] [id number] Reviewed 02/24/2015 12:00 AM DRAIN/INJ JOINT/BURSA W/O US Reviewed 02/24/2015 12:00 AM SYNVISC-ONE, Per 1 Mg (6ml) [facility] [address]-28 Reviewed Results Summary Date and Description Results [...] Influenza 05/10/2016 sanofi pasteur PMC Fluzone Quadrivalent [id number] Intramuscular Left Upper Arm 05/10/2016 02/04/2015 141 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/2013 Unknown 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 MSD PNEUMOVAX 23 [id number] Intramuscular Right Deltoid 04/16/2018 07/01/2018 33 History [...] Number Start Date Medicare RHC Medicare RHC [id number] Saturday, 2001 Medicare Part B Medicare Of [place] [id number] Saturday, 2001 Medicare Part A Medicare Part A [id number] Saturday, 2001 Medicare RHC Medicare RHC [id number] Saturday, 2001 Medicare Part A Medicare - Lab/Xray [id number] Saturday, December 29, 2001 History of Encounters [...] Maribel GUARDADO 05/21/2017 Office visit Maribel Vieira SHIFT SUPERVISOR FILM PROCESSING 02/20/2017 Office visit Maribel Vieira SHIFT SUPERVISOR FILM PROCESSING 01/16/2017 Office visit Maribel Faith Dariel SHIFT SUPERVISOR FILM PROCESSING 12/19/2016 Office visit Maribel Vieira SHIFT SUPERVISOR FILM PROCESSING 12/03/2016 Laboratory Maribel Vieira SHIFT SUPERVISOR FILM PROCESSING 11/21/2016 Office visit Maribel Vieira SHIFT SUPERVISOR FILM PROCESSING 10/26/2016 Office visit Maribel M. Dariel SHIFT SUPERVISOR FILM PROCESSING 10/04/2016 Office visit Maribel Faith Dariel SHIFT SUPERVISOR FILM PROCESSING 09/28/2016 Office visit Maribel Vieira SHIFT SUPERVISOR FILM PROCESSING 09/26/2016 Office visit Maribel Vieira SHIFT SUPERVISOR FILM PROCESSING 08/29/2016 Office visit Maribel Vieira SHIFT SUPERVISOR FILM PROCESSING 08/01/2016 Laboratory Maribel Vieira SHIFT SUPERVISOR FILM PROCESSING 07/04/2016 Office visit Maribel Faith Dariel ROBERTSP 06/07/2016 Laboratory Maribel Vieira SHIFT SUPERVISOR FILM PROCESSING 06/06/2016 Office visit Maribel Faith Dariel ROBERTSP 05/09/2016 Office visit Maribel ValCharley Dariel ROBERTSP 03/07/2016 Office visit Maribel M. Dariel ROBERTSP 02/08/2016 Office visit Maribel Faith Dariel ROBERTSP 01/11/2016 Office visit Maribel Faith Dariel ROBERTSP 12/14/2015 Office visit Maribel Faith Dariel ROBERTSP 11/14/2015 Office visit Maribel Faith Dariel ROBERTSP 10/03/2015 Office visit Maribel Faith Dariel ROBERTSP 09/06/2015 Laboratory Maribel Vieira SHIFT SUPERVISOR FILM PROCESSING 08/31/2015 Office visit Maribel Faith Dariel ROBERTSP 08/03/2015 Office visit Maribel Vianney ROBERTSP 07/06/2015 Office visit Maribel Vieira SHIFT SUPERVISOR FILM PROCESSING 06/09/2015 Nurse visit Maribel Vianney Dariel SHIFT SUPERVISOR FILM PROCESSING 05/17/2015 Office visit Maribel M. Dariel SHIFT SUPERVISOR FILM PROCESSING 04/25/2015 Office visit Maribel Vianney Dariel ROBERTSP 03/28/2015 Office visit Maribel ROBERTSP 02/24/2015 Office visit Maribel ROBERTSP 01/20/2015 Office visit Maribel NealCharley Dariel ROBERTSP 12/23/2014 Office visit Maribel ROBERTSP 11/25/2014 Office visit Maribel Vieira SHIFT SUPERVISOR FILM PROCESSING 10/21/2014 Nurse visit Maribel Vieira SHIFT SUPERVISOR FILM PROCESSING 09/29/2014 Office visit Maribel ROBERTSP 08/26/2014 Office visit Maribel ROBERTSP 07/29/2014 Nurse visit Maribel ROBERTSP 06/29/2014 Nurse visit Maribel ROBERTSP 06/03/2014 Office visit Maribel ROBERTSP 05/06/2014 Nurse visit Maribel ROBERTSP 04/08/2014 Nurse visit Maribel Vianney Vieira [facility] 03/11/2014 Office visit Maribel ROBERTSP 02/11/2014 Office [...]
--- OUTSIDE RECORDS SUMMARY | 2018-07-23 10:01 | XMS REPORT ---
Author Author Maribel Vieira [facility] Address [address] [place], [place] [id number] Care Team Providers Care Recovery Operator Name Role Phone Maribel Vieira PCP Elias Malagon Unavailable Unavailable Deborah Linares Unavailable Unavailable Allergies and Adverse Reactions Name Reaction Notes PENICILLINS Plan of Treatment Planned Activity Comments Planned Date Planned Time Plan/Goal Lipid profile 09/06/2015 12:00 AM GENERAL HEALTH PANEL 09/06/2015 12:00 AM PSA TOTAL 09/06/2015 12:00 AM MICROALBUMIN UR RANDOM 07/24/2017 12:[address] LUMBAR W/CONTRAST 05/15/2018 12:00 AM T1DM - insulin pump -current [...] route 4 times per day as needed [employer] Test miscellaneous strip 03/28/2017 Use to test blood sugar six times daily Voltaren 1 % topical gel 08/07/2017 apply 2 gram to the affected area(s) by topical route 4 times per day [employer] Blue In Vitro Strip 09/02/2017 10/03/2018 USE TO TEST BLOOD SUGAR SIX TIME DAILY Toprol XL 25 mg oral tablet extended [...] MOUTH ONCE A DAY IN THE EVENING Ambien 10 mg oral tablet 02/24/2018 take 1 tablet (10 mg) by oral route once daily at bedtime Lyrica 100 mg oral capsule 02/24/2018 05/25/2018 take 1 capsule (100 mg) by oral route 3 times per day for 30 days bupropion HCl 100 mg oral tablet 02/24/2018 [...] oral route once daily for 5 days [employer] Ultra Test miscellaneous strip 04/30/2017 04/30/2017 Use to test blood sugar six times daily Aspirin 325 mg Oral Tablet 05/07/2017 take 1 tablet (325 mg) by oral route once daily aspirin 325 mg oral tablet,delayed release (DR/EC) 05/10/2017 07/09/2017 TAKE 1 TABLET BY MOUTH ONCE A DAY risperidone 0.5 mg oral tablet 05/28/2017 WEAN by 0.5 mg weekly - called to [facility] potassium chloride 10 mEq oral tablet [...] times per day as needed for cough [employer] Ultra Blue In Vitro Strip 09/03/2017 04/22/2018 USE TO TEST BLOOD SUGAR SIX TIME DAILY cephalexin 500 mg oral capsule 12/03/2017 12/10/2017 [...] C AB TEST Returned 05/21/2017 12:00 AM [facility] MEDICARE - flu vaccine administration Reviewed [...] 10/09/2012 12:00 AM Kenalog, Per 10 Mg [facility]#[id number] Reviewed 12/30/2017 12:00 AM COMPLETE CBC W/AUTO DIFF WBC Reviewed 12/30/2017 12:00 AM COMPREHEN METABOLIC PANEL Reviewed 12/30/2017 12:00 AM URINALYSIS AUTO W/SCOPE Reviewed 12/30/2017 12:00 AM ASSAY OF MAGNESIUM Reviewed 12/30/2017 12:00 AM COLLECTION VENOUS BLOOD VENIPUNCTURE Reviewed 04/16/2018 12:00 AM X-RAY EXAM NECK SPINE 2-3 VW Returned 04/16/2018 12:00 AM X-RAY EXAM L-S SPINE 2/3 VWS Reviewed 04/16/2018 12:00 AM [facility] MEDICARE - flu vaccine administration Reviewed 04/16/2018 12:00 AM [facility] MEDIC[facility] - pneumonia vaccine administration Reviewed 04/16/2018 12:00 AM INFLUENZA VAC 4 VALENT PRSRV FREE 3 YRS PLUS IM Reviewed 04/16/2018 12:00 AM PNEUMOCOCCAL POLYSAC VACCINE 23-V 2 YRS/>SUBQ/IM Reviewed 05/15/2018 12:00 AM COLLECTION VENOUS BLOOD VENIPUNCTURE Reviewed 05/15/2018 12:00 AM PSA (Screening) Returned 06/04/2013 12:00 AM Drug Screen (Medicare) Reviewed [...] 12:00 AM SYNVISC-ONE, Per 1 Mg (6ml) [facility] [address]-65 Reviewed 05/06/2014 12:00 AM OFFICE/OUTPATIENT VISIT EST Reviewed 06/03/2014 12:00 AM DRAIN/INJ JOINT/BURSA W/O US Reviewed 06/03/2014 12:00 AM SYNVISC-ONE, Per 1 Mg (6ml) [facility] [address]-57 Reviewed 08/26/2014 12:00 AM RADIOLOGIC EXAM SACROILIAC JOINTS 3/MORE VIEWS Reviewed 01/20/2015 12:00 AM DRAIN/INJ JOINT/BURSA W/O US Reviewed 01/20/2015 12:00 AM SYNVISC-ONE, Per 1 Mg (6ml) [facility] [address]-06 Reviewed 02/24/2015 12:00 AM DRAIN/INJ JOINT/BURSA W/O US Reviewed 02/24/2015 12:00 AM SYNVISC-ONE, Per 1 Mg (6ml) [facility] [id number] Reviewed Results Summary Date and Description Results [...] Influenza 05/10/2016 sanofi pasteur PMC Fluzone Quadrivalent [id number] Intramuscular Left Upper Arm 05/10/2016 02/04/2015 141 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 Apr 08 [...] 2015 2:01PM Postlaminectomy syndrome of lumbar region Fe2015 1:55PM Radiculopathy, lumbar region Feb 3 2016 1:55PM Chronic Back Pain Aug 03 2015 [...] Number Start Date Medicare RHC Medicare RHC [id number] Saturday, 2001 Medicare Part B Medicare Of [place] [id number] Saturday, 2001 Medicare Part A Medicare Part A [id number] Saturday, 2001 Medicare RHC Medicare RHC [id number] Saturday, 2001 Medicare Part A Medicare - Lab/Xray [id number] Saturday, December 29, 2001 History of Encounters Visit Date Visit Type Provider 05/15/2018 Laboratory Maribel GUARDADO 05/14/2018 Office visit Maribel GUARDADO 04/16/2018 Office visit Maribel GUARDADO 02/19/2018 Office visit Maribel GUARDADO 12/30/2017 Office visit Maribel GUARDADO 12/03/2017 Office visit Maribel GUARDADO 11/06/2017 Office visit Maribel GUARDADO 10/09/2017 Office visit Maribel GUARDADO 09/26/2017 [facility] Rosendo Marina MD 09/11/2017 Office visit Maribel GUARDADO 08/14/2017 Office visit Maribel Vieira DELTA SYSTEM FREIGHT CAR CLEANER 08/07/2017 Office visit Maribel Faith Dariel DELTA SYSTEM FREIGHT CAR CLEANER 07/24/2017 Laboratory Maribel Vieira DELTA SYSTEM FREIGHT CAR CLEANER 07/17/2017 Office visit Maribel Faith Dariel DELTA SYSTEM FREIGHT CAR CLEANER 06/19/2017 Office visit Maribel Vieira DELTA SYSTEM FREIGHT CAR CLEANER 06/05/2017 Office visit Maribel Faith Dariel DELTA SYSTEM FREIGHT CAR CLEANER 05/28/2017 Office visit Maribel M. Dariel DELTA SYSTEM FREIGHT CAR CLEANER 05/21/2017 Office visit Maribel Vieira DELTA SYSTEM FREIGHT CAR CLEANER 02/20/2017 Office visit Maribel Vieira DELTA SYSTEM FREIGHT CAR CLEANER 01/16/2017 Office visit Maribel Vieira DELTA SYSTEM FREIGHT CAR CLEANER 12/19/2016 Office visit Maribel Faith Dariel ROBERTSP 12/03/2016 Laboratory Maribel M. Dariel DELTA SYSTEM FREIGHT CAR CLEANER 11/21/2016 Office visit Maribel Vieira DELTA SYSTEM FREIGHT CAR CLEANER 10/26/2016 Office visit Maribel Faith Dariel ROBERTSP 10/04/2016 Office visit Maribel Faith Dariel ROBERTSP 09/28/2016 Office visit Maribel Faith Dariel ROBERTSP 09/26/2016 Office visit Maribel ValCharley Dariel ROBERTSP 08/29/2016 Office visit Maribel Faith Dariel ROBERTSP 08/01/2016 Laboratory Maribel Vieira DELTA SYSTEM FREIGHT CAR CLEANER 07/04/2016 Office visit Maribel M. Dariel ROBERTSP 06/07/2016 Laboratory Maribel M. Dariel ROBERTSP 06/06/2016 Office visit Maribel Faith Dariel ROBERTSP 05/09/2016 Office visit Maribel Faith Dariel ROBERTSP 03/07/2016 Office visit Maribel ValCharley Dariel ROBERTSP 02/08/2016 Office visit Maribel ROBERTSP 01/11/2016 Office visit Maribel ROBERTSP 12/14/2015 Office visit Maribel M. Dariel ROBERTSP 11/14/2015 Office visit Maribel M. Dariel ROBERTSP 10/03/2015 Office visit Maribel ValCharley Dariel DELTA SYSTEM FREIGHT CAR CLEANER 09/06/2015 Laboratory Maribel NealCharley Dariel DELTA SYSTEM FREIGHT CAR CLEANER 08/31/2015 Office visit Maribel ROBERTSP 08/03/2015 Office visit Maribel Vianney Dariel ROBERTSP 07/06/2015 Office visit Maribel ROBERTSP 06/09/2015 Nurse visit Maribel ROBERTSP 05/17/2015 Office visit Maribel ROBERTSP 04/25/2015 Office visit Maribel ROBERTSP 03/28/2015 Office visit Maribel Faith Dariel ROBERTSP 02/24/2015 Office visit Maribel Faith Dariel ROBERTSP 01/20/2015 Office visit Maribel Faith Dariel ROBERTSP 12/23/2014 Office visit Maribel Vieira DELTA SYSTEM FREIGHT CAR CLEANER 11/25/2014 Office visit Maribel Vieira DELTA SYSTEM FREIGHT CAR CLEANER 10/21/2014 Nurse visit Maribel Faith Dariel ROBERTSP 09/29/2014 Office visit Maribel Faith Dariel ROBERTSP 08/26/2014 Office visit Maribel Faith Dariel ROBERTSP 07/29/2014 Nurse visit Maribel Faith Dariel ROBERTSP 06/29/2014 Nurse visit Maribel Vieira DELTA SYSTEM FREIGHT CAR CLEANER 06/03/2014 Office visit Maribel Faith Dariel ROBERTSP 05/06/2014 Nurse visit Maribel Faith Dariel ROBERTSP 04/08/2014 Nurse visit Maribel Vieira DELTA SYSTEM FREIGHT CAR CLEANER 03/11/2014 Office visit Maribel Vieira DELTA SYSTEM FREIGHT CAR CLEANER 02/11/2014 Office visit Maribel M. Dariel ROBERTSP 01/14/2014 Office visit Maribel M. Dariel ROBERTSP 12/17/2013 Office visit Maribel ValCharley Dariel ROBERTSP 11/19/2013 Office visit Maribel M. Dariel ROBERTSP 10/22/2013 Office visit Maribel M. Dariel ROBERTSP 09/24/2013 Office visit Maribel NealCharley Dariel ROBERTSP 08/27/2013 Office visit Maribel ROBERTSP 07/02/2013 Office visit Maribel ROBERTSP 06/04/2013 Office visit Maribel ROBERTSP 10/09/2012 Office visit Lloyd Oviedo MD 05/08/2010 Office visit Lloyd Oviedo MD 04/21/2010 Office visit Lloyd Oveido MD
--- OUTSIDE RECORDS SUMMARY | 2018-07-23 10:03 | XMS REPORT ---
Author Author Maribel Vieira [facility] Address [address] [place], [place] [id number] Care Team Providers Care Emery Wheel Worker Name Role Phone Maribel Vieira PCP [...] route 4 times per day as needed [employer] Test miscellaneous strip 03/28/2017 Use to test blood sugar six times daily Voltaren 1 % topical gel 08/07/2017 apply 2 gram to the affected area(s) by topical route 4 times per day [employer] Blue In Vitro Strip 09/02/2017 10/03/2018 USE [...] oral route once daily for 5 days [employer] Ultra Test miscellaneous strip 04/30/2017 04/30/2017 Use to test blood sugar six times daily Aspirin 325 mg Oral Tablet 05/07/2017 take 1 tablet (325 mg) by oral route once daily aspirin 325 mg oral tablet,delayed release (DR/EC) 05/10/2017 07/09/2017 TAKE 1 TABLET BY MOUTH ONCE A DAY risperidone 0.5 mg oral tablet 05/28/2017 WEAN by 0.5 mg weekly - called to [place] [facility] potassium chloride 10 mEq oral tablet [...] times per day as needed for cough [employer] Ultra Blue In Vitro Strip 09/03/2017 04/22/2018 [...] C AB TEST Returned 05/21/2017 12:00 AM [facility] MEDICARE - flu vaccine administration Reviewed [...] 10/09/2012 12:00 AM Kenalog, Per 10 Mg [facility]#7357-9133-98 Reviewed 12/30/2017 12:00 AM COMPLETE CBC W/AUTO DIFF WBC Reviewed 12/30/2017 12:00 AM COMPREHEN METABOLIC PANEL Reviewed 12/30/2017 12:00 AM URINALYSIS AUTO W/SCOPE Reviewed 12/30/2017 12:00 AM ASSAY OF MAGNESIUM Reviewed 12/30/2017 12:00 AM COLLECTION VENOUS BLOOD VENIPUNCTURE Reviewed 04/16/2018 12:00 AM X-RAY EXAM NECK SPINE 2-3 VW Returned 04/16/2018 12:00 AM X-RAY EXAM L-S SPINE 2/3 VWS Reviewed 04/16/2018 12:00 AM [facility] MEDICARE - flu vaccine administration Reviewed 04/16/2018 12:00 AM [facility] MEDICARE - pneumonia vaccine administration Reviewed [...] 12:00 AM SYNVISC-ONE, Per 1 Mg (6ml) [facility] [address]-37 Reviewed 05/06/2014 12:00 AM OFFICE/OUTPATIENT VISIT EST Reviewed 06/03/2014 12:00 AM DRAIN/INJ JOINT/BURSA W/O US Reviewed 06/03/2014 12:00 AM SYNVISC-ONE, Per 1 Mg (6ml) [facility] [address]-28 Reviewed 08/26/2014 12:00 AM RADIOLOGIC EXAM SACROILIAC JOINTS 3/MORE VIEWS Reviewed 01/20/2015 12:00 AM DRAIN/INJ JOINT/BURSA W/O US Reviewed 01/20/2015 12:00 AM SYNVISC-ONE, Per 1 Mg (6ml) [facility] [address]-70 Reviewed 02/24/2015 12:00 AM DRAIN/INJ JOINT/BURSA W/O US Reviewed 02/24/2015 12:00 AM SYNVISC-ONE, Per 1 Mg (6ml) [facility] [address]-85 Reviewed Results Summary Date and Description Results [...] Influenza 05/10/2016 sanofi pasteur PMC Fluzone Quadrivalent [id number] Intramuscular Left Upper Arm 05/10/2016 02/04/2015 141 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 MSD PNEUMOVAX 23 [id number] Intramuscular Right Deltoid 04/16/2018 07/01/2018 33 History [...] Number Start Date Medicare RHC Medicare RHC [id number] Saturday, 2001 Medicare Part B Medicare Of [place] [id number] Saturday, 2001 Medicare Part A Medicare Part A [id number] Saturday, 2001 Medicare RHC Medicare RHC [id number] Saturday, 2001 Medicare Part A Medicare - Lab/Xray [id number] Saturday, December 29, 2001 History of Encounters Visit Date Visit Type Provider 05/15/2018 Laboratory Maribel GUARDADO 05/14/2018 Office visit Maribel GUARDADO 04/16/2018 Office visit Maribel GUARDADO 02/19/2018 Office visit Maribel GUARDADO 12/30/2017 Office visit Maribel GUARDADO 12/03/2017 Office visit Maribel GUARDADO 11/06/2017 Office visit Maribel GUARDADO 10/09/2017 Office visit Maribel GUARDADO 09/26/2017 Erasmo Marina MD 09/11/2017 Office visit Maribel GUARDADO 08/14/2017 Office visit Maribel GUARDADO 08/07/2017 Office visit Maribel Vieira SHEET HANGER 07/24/2017 Laboratory Maribel Faith Dariel SHEET HANGER 07/17/2017 Office visit Maribel Faith Dariel SHEET HANGER 06/19/2017 Office visit Maribel Faith Dariel SHEET HANGER 06/05/2017 Office visit Maribel Vieira SHEET HANGER 05/28/2017 Office visit Maribel Faith Dariel SHEET HANGER 05/21/2017 Office visit Maribel M. Dariel ROBERTSP 02/20/2017 Office visit Maribel M. Dariel ROBERTSP 01/16/2017 Office visit Maribel Vieira SHEET HANGER 12/19/2016 Office visit Maribel Faith Dariel SHEET HANGER 12/03/2016 Laboratory Maribel M. Dariel SHEET HANGER 11/21/2016 Office visit Maribel Faith Dariel SHEET HANGER 10/26/2016 Office visit Maribel Faith Dariel ROBERTSP 10/04/2016 Office visit Maribel Faith Dariel ROBERTSP 09/28/2016 Office visit Maribel Faith Dariel ROBERTSP 09/26/2016 Office visit Maribel ValCharley Dariel ROBERTSP 08/29/2016 Office visit Maribel ValCharley Dariel ROBERTSP 08/01/2016 Laboratory Maribel M. Dariel ROBERTSP 07/04/2016 Office visit Maribel Faith Dariel ROBERTSP 06/07/2016 Laboratory Maribel ValCharley Dariel SHEET HANGER 06/06/2016 Office visit Maribel ValCharley Dariel ROBERTSP 05/09/2016 Office visit Maribel Faith Dariel ROBERTSP 03/07/2016 Office visit Maribel Faith Dariel ROBERTSP 02/08/2016 Office visit Maribel Vianney ROBERTSP 01/11/2016 Office visit Maribel ROBERTSP 12/14/2015 Office visit Maribel ROBERTSP 11/14/2015 Office visit Maribel M. Dariel ROBERTSP 10/03/2015 Office visit Maribel M. Dariel ROBERTSP 09/06/2015 Laboratory Maribel ValCharley Dariel SHEET HANGER 08/31/2015 Office visit Maribel ROBERTSP 08/03/2015 Office visit Maribel Vieira SHEET HANGER 07/06/2015 Office visit Maribel ROBERTSP 06/09/2015 Nurse visit Maribel ROBERTSP 05/17/2015 Office visit Maribel ROBERTSP 04/25/2015 Office visit Maribel ROBERTSP 03/28/2015 Office visit Maribel Vieira SHEET HANGER 02/24/2015 Office visit Maribel Faith Dariel ROBERTSP 01/20/2015 Office visit Maribel Faith Dariel ROBERTSP 12/23/2014 Office visit Maribel Faith Dariel ROBERTSP 11/25/2014 Office visit Maribel Vieira SHEET HANGER 10/21/2014 Nurse visit Maribel Faith Dariel ROBERTSP 09/29/2014 Office visit Maribel Faith Dariel ROBERTSP 08/26/2014 Office visit Maribel Faith Dariel ROBERTSP 07/29/2014 Nurse visit Maribel Faith Dariel ROBERTSP 06/29/2014 Nurse visit Maribel Vieira SHEET HANGER 06/03/2014 Office visit Maribel Faith Dariel ROBERTSP 05/06/2014 Nurse visit Maribel Faith Dariel ROBERTSP 04/08/2014 Nurse visit Maribel Vieira SHEET HANGER 03/11/2014 Office visit Maribel Faith Dariel ROBERTSP 02/11/2014 Office visit Maribel Faith Dariel ROBERTSP 01/14/2014 Office visit Maribel Faith Dariel ROBERTSP 12/17/2013 Office visit Maribel M. Dariel ROBERTSP 11/19/2013 Office visit Maribel Vianney ROBERTSP 10/22/2013 Office visit Maribel M. Dariel ROBERTSP 09/24/2013 Office visit Maribel M. Dariel ROBERTSP 08/27/2013 Office visit Maribel ROBERTSP 07/02/2013 Office visit Maribel ROBERTSP 06/04/2013 Office visit Maribel ROBERTSP 10/09/2012 Office visit Lloyd Oviedo MD 05/08/2010 Office visit Lloyd Oviedo MD 04/21/2010 Office visit Lloyd Oviedo MD
--- OUTSIDE RECORDS SUMMARY | 2018-07-23 10:05 | XMS REPORT ---
Author Author Maribel Vieira [facility] Address [address] [place], [place] [id number] Care Team Providers Care Senior Painter Name Role Phone Maribel Vieira PCP [...] route 4 times per day as needed AdventureDrop Test miscellaneous strip 03/28/2017 Use to test blood sugar six times daily Voltaren 1 % topical gel 08/07/2017 apply 2 gram to the affected area(s) by topical route 4 times per day AdventureDrop Blue In Vitro Strip 09/02/2017 10/03/2018 USE [...] oral route once daily for 5 days [employer] Ultra Test miscellaneous strip 04/30/2017 04/30/2017 Use to test blood sugar six times daily Aspirin 325 mg Oral Tablet 05/07/2017 take 1 tablet (325 mg) by oral route once daily aspirin 325 mg oral tablet,delayed release (DR/EC) 05/10/2017 07/09/2017 TAKE 1 TABLET BY MOUTH ONCE A DAY risperidone 0.5 mg oral tablet 05/28/2017 WEAN by 0.5 mg weekly - called to [facility] potassium chloride 10 mEq oral tablet [...] times per day as needed for cough [employer] Ultra Blue In Vitro Strip 09/03/2017 04/22/2018 [...] C AB TEST Returned 05/21/2017 12:00 AM [facility] - flu vaccine administration [...] 10/09/2012 12:00 AM Kenalog, Per 10 Mg [facility]#4086-5475-57 Reviewed 12/30/2017 12:00 AM COMPLETE CBC W/AUTO DIFF WBC Reviewed 12/30/2017 12:00 AM COMPREHEN METABOLIC PANEL Reviewed 12/30/2017 12:00 AM URINALYSIS AUTO W/SCOPE Reviewed 12/30/2017 12:00 AM ASSAY OF MAGNESIUM Reviewed 12/30/2017 12:00 AM COLLECTION VENOUS BLOOD VENIPUNCTURE Reviewed 04/16/2018 12:00 AM X-RAY EXAM NECK SPINE 2-3 VW Returned 04/16/2018 12:00 AM X-RAY EXAM L-S SPINE 2/3 VWS Reviewed 04/16/2018 12:00 AM [facility] - flu vaccine administration Reviewed 04/16/2018 12:00 AM [facility] - pneumonia vaccine administration [...] 12:00 AM SYNVISC-ONE, Per 1 Mg (6ml) [facility] [address]-41 Reviewed 05/06/2014 12:00 AM OFFICE/OUTPATIENT VISIT EST Reviewed 06/03/2014 12:00 AM DRAIN/INJ JOINT/BURSA W/O US Reviewed 06/03/2014 12:00 AM SYNVISC-ONE, Per 1 Mg (6ml) [facility] [address]-08 Reviewed 08/26/2014 12:00 AM RADIOLOGIC EXAM SACROILIAC JOINTS 3/MORE VIEWS Reviewed 01/20/2015 12:00 AM DRAIN/INJ JOINT/BURSA W/O US Reviewed 01/20/2015 12:00 AM SYNVISC-ONE, Per 1 Mg (6ml) [facility] [address]-62 Reviewed 02/24/2015 12:00 AM DRAIN/INJ JOINT/BURSA W/O US Reviewed 02/24/2015 12:00 AM SYNVISC-ONE, Per 1 Mg (6ml) [facility] [address]-06 Reviewed Results Summary Date and Description Results [...] Influenza 05/10/2016 sanofi pasteur PMC Fluzone Quadrivalent [id number] Intramuscular Left Upper Arm 05/10/2016 02/04/2015 141 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/2013 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 MSD PNEUMOVAX 23 [id number] Intramuscular Right Deltoid 04/16/2018 07/01/2018 33 History [...] of lumbar spine May 15 2018 10:42AM Payers Insurance Name Company Name Plan Name Plan Number Policy Number Policy Group Number Start Date Medicare RHC Medicare RHC [id number] Saturday, 2001 Medicare Part B Medicare Of [place] [id number] Saturday, 2001 Medicare Part A Medicare Part A [id number] Saturday, 2001 Medicare RHC Medicare RHC [id number] Saturday, 2001 Medicare Part A Medicare - Lab/Xray [id number] Saturday, December 29, 2001 History of Encounters [...] visit Maribel GUARDADO 05/28/2017 Office visit Maribel Vieira SECTION PLOTTER OPERATOR 05/21/2017 Office visit Maribel Vieira SECTION PLOTTER OPERATOR 02/20/2017 Office visit Maribel M. Dariel ROBERTSP 01/16/2017 Office visit Maribel Faith Dariel SECTION PLOTTER OPERATOR 12/19/2016 Office visit Maribel Faith Dariel SECTION PLOTTER OPERATOR 12/03/2016 Laboratory Maribel Vieira SECTION PLOTTER OPERATOR 11/21/2016 Office visit Maribel M. Dariel SECTION PLOTTER OPERATOR 10/26/2016 Office visit Maribel NealCharley Dariel SECTION PLOTTER OPERATOR 10/04/2016 Office visit Maribel ValCharley Dariel SECTION PLOTTER OPERATOR 09/28/2016 Office visit Maribel Vieira SECTION PLOTTER OPERATOR 09/26/2016 Office visit Maribel Faith Dariel SECTION PLOTTER OPERATOR 08/29/2016 Office visit Maribel ValCharley Dariel SECTION PLOTTER OPERATOR 08/01/2016 Laboratory Maribel ValCharley Dariel ROBERTSP 07/04/2016 Office visit Maribel Faith Dariel ROBERTSP 06/07/2016 Laboratory Maribel Faith Dariel SECTION PLOTTER OPERATOR 06/06/2016 Office visit Maribel Vianney ROBERTSP 05/09/2016 Office visit Mraibel ROBERTSP 03/07/2016 Office visit Maribel ROBERTSP 02/08/2016 Office visit Maribel M. Dariel ROBERTSP 01/11/2016 Office visit Maribel M. Dariel ROBERTSP 12/14/2015 Office visit Maribel ROBERTSP 11/14/2015 Office visit Maribel Vianney ROBERTSP 10/03/2015 Office visit Maribel Faith Dariel ROBERTSP 09/06/2015 Laboratory Maribel M. Dariel ROBERTSP 08/31/2015 Office visit Maribel ROBERTSP [...] visit Maribel ROBERTSP 09/29/2014 Office visit Maribel GUARDADO 08/26/2014 Office visit Maribel ROBERTSP 07/29/2014 Nurse [...]
--- OUTSIDE RECORDS SUMMARY | 2018-07-23 10:07 | XMS REPORT ---
Author Author Maribel Vieira [facility] Address [address] [facility] [address] [place], [place] [id number] Care Team Providers Care Auto Body Mechanic Name Role Phone Maribel Vieira PCP Elias [...] route 4 times per day as needed [employer] Ultra Test miscellaneous strip 03/28/2017 Use to test blood sugar six times daily Voltaren 1 % topical gel 08/07/2017 apply 2 gram to the affected area(s) by topical route 4 times per day [employer] Ultra Blue In Vitro Strip 09/02/2017 10/03/2018 USE TO TEST BLOOD SUGAR SIX TIME DAILY [employer] Ultra Blue In Vitro Strip 09/03/2017 04/22/2018 [...] tablet po twice BID (am and pm) Percocet 10-325 mg oral tablet 04/16/2018 05/16/2018 take 1 tablet by oral route every 6 hours as needed for 30 days pantoprazole 40 mg oral tablet,delayed release (DR/EC) 04/18/2018 TAKE 1 TABLET BY MOUTH ONCE A DAY potassium chloride 10 mEq oral tablet extended release 04/18/2018 TAKE 2 TABLETS DAILY IN THE MORNING AND 1 TABLET IN THE EVENING Novolog U-100 Insulin aspart 100 unit/mL subcutaneous solution 04/18/2018 INJECT 160 UNITS DAILY DXE11.43. Name Start Date Expiration Date SIG Comments [...] oral route once daily for 5 days OneTouch Ultra Test miscellaneous strip 04/30/2017 04/30/2017 Use to test blood sugar six times daily Aspirin 325 mg Oral Tablet 05/07/2017 take 1 tablet (325 mg) by oral route once daily aspirin 325 mg oral tablet,delayed release (/EC) 05/10/2017 07/09/2017 TAKE 1 TABLET BY MOUTH ONCE A DAY risperidone 0.5 mg oral tablet 05/28/2017 WEAN by 0.5 mg weekly - called to [facility] potassium chloride 10 mEq oral tablet [...] HC BMI BSA BMI Percentile O2 Sat(%) 04/16/2018 1:31:00 PM 132 mmHg 64 mmHg 68 bpm 20 rpm 97.7 F 312 lbs 76 in 37.9774 kg/m 2.7548 m 96 % 02/19/2018 1:22:00 PM 140 mmHg 72 mmHg 76 bpm 18 rpm 98.1 F 308.5 lbs 76 in 37.55 kg/m2 2.74 m2 96 % 12/30/2017 1:56:00 PM 132 mmHg 74 mmHg 74 bpm 16 rpm 97.2 F 309.5 lbs 76 in 37.6731 kg/m 2.7437 m 96 % 12/03/2017 1:30:00 PM 142 mmHg 88 mmHg 69 bpm 18 rpm 98.8 F 315.75 lbs 76 in 38.43 kg/m2 2.77 m2 96 % 11/06/2017 1:24:00 PM 136 mmHg 78 mmHg 78 bpm 17 rpm 98.7 F 311.5 lbs 76 in 37.9166 kg/m 2.7525 m 98 % 10/09/2017 1:36:00 PM 116 mmHg 66 mmHg 68 bpm 17 rpm 97.7 F 311.5 lbs 76 in 37.92 kg/m2 2.75 m2 95 % 10/09/2017 1:36:00 PM 116 mmHg 66 mmHg 68 bpm 17 rpm 97.7 F 311.5 lbs 76 in 37.92 kg/m2 2.75 m2 95 % 09/11/2017 1:20:00 PM 132 mmHg 76 mmHg 85 bpm 18 rpm 97.8 F 136.75 lbs 76 in 16.65 kg/m2 1.8238 m 95 % 08/14/2017 1:21:00 PM 136 mmHg 72 mmHg 86 bpm 18 rpm 97.6 F 136.75 lbs 76 in 16.6456 kg/m 1.82 m2 96 % 08/07/2017 1:13:00 PM 131 mmHg 80 mmHg 75 bpm 20 rpm 98.7 F 311 lbs 76 in 37.86 kg/m2 2.7503 m 96 % 07/17/2017 1:21:00 PM 128 mmHg 72 mmHg 78 bpm 17 rpm 97.8 F 316.75 lbs 76 in 38.5556 kg/m 2.78 m2 93 % 06/19/2017 1:45:00 PM 132 mmHg 68 mmHg 77 bpm 20 rpm 69.8 F 310.25 lbs 76 in 37.76 kg/m2 2.747 m 95 % 06/05/2017 2:51:00 PM 128 mmHg 82 mmHg 73 bpm 18 rpm 97.2 F 314.75 lbs 76 in 38.3122 kg/m 2.77 m2 96 % 05/28/2017 1:49:00 PM 130 mmHg 76 mmHg 72 bpm 18 rpm 97.2 F 315.5 lbs 76 in 38.40 kg/m2 2.7702 m 95 % 05/21/2017 1:36:00 PM 129 mmHg 70 mmHg 62 bpm 16 rpm 97.2 F 319.75 lbs 76 in 38.9208 kg/m 2.79 m2 100 % 02/20/2017 1:32:00 PM 130 mmHg 76 mmHg 72 bpm 17 rpm 97.7 F 312.75 lbs 76 in 38.07 kg/m2 2.7581 m 97 % 01/16/2017 1:31:00 PM 128 mmHg 70 mmHg 76 bpm 17 rpm 97.6 F 206.5 lbs 76 in 25.1357 kg/m 2.24 m2 97 % 12/19/2016 1:41:00 PM 132 mmHg 70 mmHg 71 bpm 18 rpm 97.7 F 306 lbs 76 in 37.25 kg/m2 2.7281 m 96 % 11/21/2016 1:47:00 PM 142 mmHg 74 mmHg 80 bpm 17 rpm 97.6 F 313.25 lbs 76 in 38.1296 kg/m 2.76 m2 95 % 10/26/2016 10:20:00 AM 134 mmHg 72 mmHg 78 bpm 16 rpm 97.7 F 320.25 lbs 76 in 38.98 kg/m2 2.7909 m 96 % 10/04/2016 2:15:00 PM 120 mmHg [...] F 322 lbs 76 in 39.19 kg/m2 2.80 m2 06/03/2014 9:20:00 AM 110 mmHg 60 mmHg 70 bpm 16 rpm 96 F 320 lbs 75.5 in 39.4688 kg/m 2.7807 m 03/11/2014 9:32:00 AM 128 mmHg 74 mmHg 66 bpm 14 rpm 96.1 F 324 lbs 75.5 in 39.96 kg/m2 2.80 m2 02/11/2014 10:04:00 AM 144 mmHg 82 mmHg 60 bpm 16 rpm 97 F 319 lbs 75.5 in 39.3455 kg/m 2.7763 m 01/14/2014 10:04:00 AM 142 mmHg 80 mmHg 72 bpm 16 rpm 96.8 F 323 lbs 75.5 in 39.84 kg/m2 2.79 m2 12/17/2013 9:18:00 AM 124 mmHg 80 mmHg 84 bpm 16 rpm 97 F 319 lbs 75.5 in 39.3455 kg/m 2.7763 m 11/19/2013 10:10:00 AM 160 mmHg 90 mmHg [...] C AB TEST Returned 05/21/2017 12:00 AM [facility] MEDICARE - flu [...] Per 10 Mg [facility]#0539-8900-39 Reviewed 12/30/2017 12:00 AM COMPLETE CBC W/AUTO DIFF WBC Reviewed 12/30/2017 12:00 AM COMPREHEN METABOLIC PANEL Reviewed 12/30/2017 12:00 AM URINALYSIS AUTO W/SCOPE Reviewed 12/30/2017 12:00 AM ASSAY OF MAGNESIUM Reviewed 12/30/2017 12:00 AM COLLECTION VENOUS BLOOD VENIPUNCTURE Reviewed 04/16/2018 12:00 AM X-RAY EXAM NECK SPINE 2-3 VW Returned 04/16/2018 12:00 AM X-RAY EXAM L-S SPINE 2/3 VWS Returned 04/16/2018 12:00 AM [facility] MEDICARE - flu vaccine administration Reviewed 04/16/2018 12:00 AM [facility] MEDICARE - pneumonia vaccine administration Reviewed 04/16/2018 12:00 AM INFLUENZA VAC 4 VALENT PRSRV FREE 3 YRS PLUS IM Reviewed 04/16/2018 12:00 AM PNEUMOCOCCAL POLYSAC VACCINE 23-V 2 YRS/>SUBQ/IM Reviewed 06/04/2013 12:00 AM Drug Screen (Medicare) [...] Mg (6ml) [facility] [address]-35 Reviewed 05/06/2014 12:00 AM OFFICE/OUTPATIENT VISIT EST Reviewed 06/03/2014 12:00 AM DRAIN/INJ JOINT/BURSA W/O US Reviewed 06/03/2014 12:00 AM SYNVISC-ONE, Per 1 Mg (6ml) [facility] [address]-08 Reviewed 08/26/2014 12:00 AM RADIOLOGIC EXAM SACROILIAC JOINTS 3/MORE VIEWS Reviewed 01/20/2015 12:00 AM DRAIN/INJ JOINT/BURSA W/O US Reviewed 01/20/2015 12:00 AM SYNVISC-ONE, Per 1 Mg (6ml) [facility] [address]-38 Reviewed 02/24/2015 12:00 AM DRAIN/INJ JOINT/BURSA W/O US Reviewed 02/24/2015 12:00 AM SYNVISC-ONE, Per 1 Mg (6ml) [facility] [address]-78 Reviewed Results Summary Date and Description Results [...] Vis Given Vis Pub CVX Influenza 05/10/2016 sanInfinite Executive [employer] Service pasteur PMC Fluzone Quadrivalent [id number] Intramuscular Left Upper Arm 05/10/2016 02/04/2015 141 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/2013 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 MSD PNEUMOVAX 23 [id number] Intramuscular Right Deltoid 04/16/2018 07/01/2018 33 History [...] 4:47PM Pneumonia vaccine Apr 16 2018 4:47PM Payers Insurance Name Company Name Plan Name Plan Number Policy Number Policy Group Number Start Date Medicare RHC Medicare RH [id number] Saturday, 2001 Medicare Part B Medicare Of [place] [id number] Saturday, 2001 Medicare Part A Medicare Part A [id number] Saturday, 2001 Medicare RHC Medicare RHC [id number] Saturday, 2001 Medicare Part A Medicare - Lab/Xray [id number] Saturday, December 29, 2001 History of Encounters Visit Date Visit Type Provider 04/16/2018 Office visit Maribel GUARDADO 02/19/2018 Office [...] visit Maribel GUARDADO 02/20/2017 Office visit Maribel GUARDADO 01/16/2017 Office visit Maribel GUARDADO 12/19/2016 Office visit Maribel GUARDADO 12/03/2016 Laboratory Maribel GUARDADO 11/21/2016 Office visit Maribel GUARDADO 10/26/2016 Office visit Maribel GUARDADO 10/04/2016 Office visit Maribel GUARDADO 09/28/2016 Office visit Maribel GUARDADO 09/26/2016 Office visit Maribel ROBERTSP 08/29/2016 Office visit Maribel ValCharley Dariel ROBERTSP 08/01/2016 Laboratory Maribel ValCharley Dariel CIS COORDINATOR 07/04/2016 Office visit Maribel ValCharley Dariel ROBERTSP 06/07/2016 Laboratory Maribel M. Dariel ROBERTSP 06/06/2016 Office visit Maribel ValCharley Dariel ROBERTSP 05/09/2016 Office visit Maribel ROBERTSP 03/07/2016 Office visit Maribel ROBERTSP 02/08/2016 Office visit Maribel ROBERTSP 01/11/2016 Office visit Maribel NealCharley Dariel ROBERTSP 12/14/2015 Office visit Maribel NealCharley Dariel ROBERTSP 11/14/2015 Office visit Maribel ROBERTSP 10/03/2015 Office visit Maribel ROBERTSP 09/06/2015 Laboratory Maribel M. Dariel ROBERTSP [...] visit Maribel ROBERTSP 03/11/2014 Office visit Maribel ROBETRSP 02/11/2014 Office visit Maribel ROBERTSP 01/14/2014 Office [...]
--- OUTSIDE RECORDS SUMMARY | 2018-07-23 10:08 | XMS REPORT ---
Author Author Maribel Vieira [facility] Address [address] [place], [place] [id number] Care Team Providers Care Night Warehouse Manager Name Role Phone Maribel Vieira PCP Elias Malagon Unavailable Unavailable Deborah Linares Unavailable Unavailable Allergies and Adverse Reactions Name Reaction Notes PENICILLINS Plan of Treatment Planned Activity Comments Planned Date Planned Time Plan/Goal Lipid profile 09/06/2015 12:00 AM GENERAL HEALTH PANEL 09/06/2015 12:00 AM PSA TOTAL 09/06/2015 12:00 AM MICROALBUMIN UR RANDOM 07/24/2017 12:00 AM Cervical Spine 2-3 Views - Main 04/16/2018 12:00 AM Lumbar Spine 2-3 Views - Main 04/16/2018 12:00 AM Flu vaccine, Quadrivalent, Split Virus (single-use syringe) - [facility] Medicare 04/16/2018 12:00 AM PNEUMOVAX 23 - Nurse Visit Only (Medicare/Medicaid) 04/16/2018 12:00 AM T1DM - insulin pump -current [...] route 4 times per day as needed Novolog 100 unit/mL subcutaneous solution 03/28/2017 INJECT 160 UNITS DAILY DXE11.43. OneTouch Ultra Test miscellaneous strip 03/28/2017 Use to test blood sugar six times daily Voltaren 1 % topical gel 08/07/2017 apply 2 gram to the affected area(s) by topical route 4 times per day OneTouch Ultra Blue In Vitro Strip 09/02/2017 10/03/2018 USE TO TEST BLOOD SUGAR SIX TIME DAILY OneTouch Ultra Blue In Vitro Strip 09/03/2017 04/22/2018 [...] oral route once daily for 5 days [employer] Ultra Test miscellaneous strip 04/30/2017 04/30/2017 Use to test blood sugar six times daily Aspirin 325 mg Oral Tablet 05/07/2017 take 1 tablet (325 mg) by oral route once daily aspirin 325 mg oral tablet,delayed release (DR/EC) 05/10/2017 07/09/2017 TAKE 1 TABLET BY MOUTH ONCE A DAY risperidone 0.5 mg oral tablet 05/28/2017 WEAN by 0.5 mg weekly - called to [facility] potassium chloride 10 mEq oral tablet [...] times per day as needed for cough pantoprazole 40 mg oral tablet,delayed release (DR/EC) 08/13/2017 11/05/2017 TAKE 1 TABLET BY MOUTH ONCE A DAY cephalexin 500 mg oral capsule 12/03/2017 12/10/2017 [...] C AB TEST Returned 05/21/2017 12:00 AM [facility] MEDICARE - flu vaccine administration Reviewed [...] 10/09/2012 12:00 AM Kenalog, Per 10 Mg [facility]#8095-0134-43 Reviewed 12/30/2017 12:00 AM COMPLETE CBC W/AUTO [...] 12:00 AM SYNVISC-ONE, Per 1 Mg (6ml) [facility] [address]-14 Reviewed 05/06/2014 12:00 AM OFFICE/OUTPATIENT VISIT EST Reviewed 06/03/2014 12:00 AM DRAIN/INJ JOINT/BURSA W/O US Reviewed 06/03/2014 12:00 AM SYNVISC-ONE, Per 1 Mg (6ml) [facility] [address]-63 Reviewed 08/26/2014 12:00 AM RADIOLOGIC EXAM SACROILIAC JOINTS 3/MORE VIEWS Reviewed 01/20/2015 12:00 AM DRAIN/INJ JOINT/BURSA W/O US Reviewed 01/20/2015 12:00 AM SYNVISC-ONE, Per 1 Mg (6ml) [facility] [address]-05 Reviewed 02/24/2015 12:00 AM DRAIN/INJ JOINT/BURSA W/O US Reviewed 02/24/2015 12:00 AM SYNVISC-ONE, Per 1 Mg (6ml) [facility] [address]-88 Reviewed Results Summary Date and Description Results [...] Influenza 05/10/2016 sanofi pasteur PMC Fluzone Quadrivalent [id number] Intramuscular Left Upper Arm 05/10/2016 02/04/2015 141 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/2013 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 UNK Unknown 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 Unknown 06/21/2016 07/01/2018 33 Influenza 05/21/2017 sanofi pasteur PMC FLUZONE [id number] Intramuscular Left Arm 05/22/2017 01/24/2011 158 History of Past Illness Name Date of [...] Radiculopathy Jul 02 2013 10:31AM Radiculopathy, lumbosacral Fe 27 2014 9:19AM Postlaminectomy syndrome of lumbar region Aug [...] 2013 9:48AM Postlaminectomy syndrome of lumbar region Sep 2013 9:48AM Cervical Radiculopathy Sep 2013 9:48AM Pain [...] Number Start Date Medicare RHC Medicare RHC [id number] Saturday, 2001 Medicare Part B Medicare Of [place] [id number] Saturday, 2001 Medicare Part A Medicare Part A [id number] Saturday, 2001 Medicare RHC Medicare RHC [id number] Saturday, 2001 Medicare Part A Medicare - Lab/Xray [id number] Saturday, December 29, 2001 History of Encounters Visit Date Visit Type Provider 04/16/2018 Office visit Maribel ROBERTSP 02/19/2018 Office visit Maribel ROBERTSP 12/30/2017 Office visit Maribel ROBERTSP 12/03/2017 Office visit Maribel ROBERTSP 11/06/2017 Office visit Maribel ROBERTSP 10/09/2017 Office visit Maribel ROBERTSP 09/26/2017 [facility] Rosendo Marina MD 09/11/2017 Office visit Maribel ROBERTSP 08/14/2017 Office visit Maribel ROBERTSP 08/07/2017 Office visit Maribel ROBERTSP 07/24/2017 Laboratory Maribel ROBERTSP 07/17/2017 Office visit Maribel ROBERTSP 06/19/2017 Office visit Maribel ROBERTSP 06/05/2017 Office visit Maribel ROBERTSP 05/28/2017 Office visit Maribel ROBERTSP 05/21/2017 Office visit Maribel ROBERTSP 02/20/2017 Office visit Maribel ROBERTSP 01/16/2017 Office visit Maribel ROBERTSP 12/19/2016 Office visit Maribel ROBERTSP 12/03/2016 Laboratory Maribel ROBERTSP 11/21/2016 Office visit Maribel ROBERTSP 10/26/2016 Office visit Maribel ROBERTSP 10/04/2016 Office visit Maribel ROBERTSP 09/28/2016 Office visit Maribel ROBERTSP 09/26/2016 Office visit Maribel ROBERTSP 08/29/2016 Office visit Maribel ROBERTSP 08/01/2016 Laboratory Maribel ROBERTSP 07/04/2016 Office visit Maribel ROBERTSP 06/07/2016 Laboratory Maribel ROBERTSP 06/06/2016 Office visit Maribel ROBERTSP 05/09/2016 Office visit Maribel ROBERTSP 03/07/2016 Office visit Maribel ROBERTSP 02/08/2016 Office visit Maribel ROBERTSP 01/11/2016 Office visit Maribel ROBERTSP 12/14/2015 Office visit Maribel Faith Dariel ROBERTSP 11/14/2015 Office visit Maribel Faith Dariel ROBERTSP 10/03/2015 Office visit Maribel Faith Dariel ROBERTSP 09/06/2015 Laboratory Maribel Faith Dariel TESTER SOUND 08/31/2015 Office visit Maribel Vieira TESTER SOUND 08/03/2015 Office visit Maribel Vieira TESTER SOUND 07/06/2015 Office visit Maribel Faith Dariel ROBERTSP 06/09/2015 Nurse visit Maribel Faith Dariel ROBERTSP 05/17/2015 Office visit Maribel Faith Dariel TESTER SOUND 04/25/2015 Office visit Maribel Vieira TESTER SOUND 03/28/2015 Office visit Maribel Vieira TESTER SOUND 02/24/2015 Office visit Maribel Faith Dariel ROBERTSP 01/20/2015 Office visit Maribel Faith Dairel ROBERTSP 12/23/2014 Office visit Maribel Vieira TESTER SOUND 11/25/2014 Office visit Maribel Faith Dariel ROBERTSP 10/21/2014 Nurse visit Maribel NealCharley Dariel ROBERTSP 09/29/2014 Office visit Maribel ValCharley Dariel ROBERTSP 08/26/2014 Office visit Maribel Faith Dariel ROBERTSP 07/29/2014 Nurse visit Maribel ValCharley Dariel ROBERTSP 06/29/2014 Nurse visit Maribel Faith Dariel ROBERTSP 06/03/2014 Office visit Maribel M. Dariel ROBERTSP 05/06/2014 Nurse visit Maribel Faith Dariel ROBERTSP 04/08/2014 Nurse visit Maribel Vieira TESTER SOUND 03/11/2014 Office visit Maribel M. Dariel ROBERTSP 02/11/2014 Office visit Maribel ROBERTSP 01/14/2014 Office visit Maribel ROBERTSP 12/17/2013 Office visit Maribel NealCharley Dariel [...]
--- OUTSIDE RECORDS SUMMARY | 2018-07-23 10:10 | XMS REPORT ---
Author Author Maribel Vieira [facility] Address [address] [facility] [address] [place], [place] [id number] Care Team Providers Care Chemist Inorganic Name Role Phone Maribel Vieira PCP Elias [...] 2-3 Views - Main 04/16/2018 12:00 AM T1DM - insulin pump [...] solution 03/28/2017 INJECT 160 UNITS DAILY DXE11.43. DubakiTouch Ultra Test miscellaneous strip 03/28/2017 Use to [...] by 0.5 mg weekly - called to [place] [facility] potassium chloride 10 mEq oral tablet [...] C AB TEST Returned 05/21/2017 12:00 AM [facility] MEDICARE - flu vaccine administration [...] 10/09/2012 12:00 AM Kenalog, Per 10 Mg [facility]#[id number] Reviewed 12/30/2017 12:00 AM COMPLETE CBC W/AUTO [...] 12:00 AM SYNVISC-ONE, Per 1 Mg (6ml) [facility] [address]-59 Reviewed 05/06/2014 12:00 AM OFFICE/OUTPATIENT VISIT EST Reviewed 06/03/2014 12:00 AM DRAIN/INJ JOINT/BURSA W/O US Reviewed 06/03/2014 12:00 AM SYNVISC-ONE, Per 1 Mg (6ml) [facility] [address]-60 Reviewed 08/26/2014 12:00 AM RADIOLOGIC EXAM SACROILIAC JOINTS 3/MORE VIEWS Reviewed 01/20/2015 12:00 AM DRAIN/INJ JOINT/BURSA W/O US Reviewed 01/20/2015 12:00 AM SYNVISC-ONE, Per 1 Mg (6ml) [facility] [address]-33 Reviewed 02/24/2015 12:00 AM DRAIN/INJ JOINT/BURSA W/O US Reviewed 02/24/2015 12:00 AM SYNVISC-ONE, Per 1 Mg (6ml) [facility] [address]-40 Reviewed Results Summary Date and Description Results [...] Influenza 05/10/2016 sanofi pasteur PMC Fluzone Quadrivalent [id number] Intramuscular Left Upper Arm 05/10/2016 02/04/2015 141 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/2013 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 Unknown 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 Unknown 06/21/2016 07/01/2018 [...] 1:34PM Radiculopathy, lumbosacral Apr 16 2018 1:34PM Payers Insurance Name Company Name Plan Name Plan Number Policy Number Policy Group Number Start Date Medicare RHC Medicare RHC [id number] Saturday, 2001 Medicare Part A Medicare - Lab/Xray [id number] Saturday, December 29, 2001 Medicare Part B Medicare Of [place] [id number] Saturday, December 29, 2001 Medicare Part A Medicare Part A [id number] Saturday, December 29, 2001 History of Encounters Visit Date Visit Type Provider 04/16/2018 Office visit Maribel GUARDADO 02/19/2018 Office visit Maribel GUARDADO 12/30/2017 Office visit Maribel GUARDADO 12/03/2017 Office visit Maribel GUARDADO 11/06/2017 Office visit Maribel Vieira [employer] 10/09/2017 Office visit Maribel Faith Dariel [employer] 09/26/2017 [facility] Rosendo Marina MD 09/11/2017 Office visit Maribel M. Dariel [employer] 08/14/2017 Office visit Maribel Faith Dariel [employer] 08/07/2017 Office visit Maribel Vieira [employer] FRUIT CROPS 07/24/2017 Laboratory Maribel ValCharley Dariel [employer] FR[employer] CROPS 07/17/2017 Office visit Maribel Vieira [employer]OPS 06/19/2017 Office visit Maribel NealCharley Dariel [employer] FR[employer] CROPS 06/05/2017 Office visit Maribel Vieira [employer]OPS 05/28/2017 Office visit Maribel M. Dariel [employer] 05/21/2017 Office visit Maribel NealCharley Dariel ROBERTSP 02/20/2017 Office visit Maribel NealCharley Dariel ROBERTSP 01/16/2017 Office visit Maribel Faith Dariel ROBERTSP 12/19/2016 Office visit Maribel ValCharley Dariel ROBERTSP 12/03/2016 Laboratory Maribel ROBERTSP 11/21/2016 Office visit Maribel ROBERTSP 10/26/2016 Office visit Maribel ROBERTSP 10/04/2016 Office visit Maribel M. Dariel ROBERTSP 09/28/2016 Office visit Maribel M. Dariel ROBERTSP 09/26/2016 Office visit Maribel ROBERTSP 08/29/2016 Office visit Maribel ROBERTSP 08/01/2016 Laboratory Maribel M. Dariel ROBERTSP 07/04/2016 Office visit Maribel ROBERTSP 06/07/2016 [...] visit Maribel ROBERTSP 06/09/2015 Nurse visit Maribel Faith Dariel ROBERTSP 05/17/2015 Office visit Maribel ValCharley Dariel ROBERTSP 04/25/2015 Office visit Maribel Faith Dariel ROBERTSP 03/28/2015 Office visit Maribel Faith Dariel ROBERTSP 02/24/2015 Office visit Maribel Faith Dariel ROBERTSP 01/20/2015 Office visit Maribel Faith Dariel ROBERTSP 12/23/2014 Office visit Maribel ValCharley Dariel ROBERTSP 11/25/2014 Office visit Maribel ValCharley Dariel ROBERTSP 10/21/2014 Nurse visit Maribel Faith [...] ValCharley Dariel ROBERTSP 01/14/2014 Office visit Maribel ValCharley Dariel ROBERTSP 12/17/2013 Office visit Maribel ROBERTSP 11/19/2013 Office visit Maribel ROBERTSP 10/22/2013 Office visit Maribel ROBERTSP 09/24/2013 Office visit Maribel ROBERTSP 08/27/2013 Office visit Maribel ROBERTSP 07/02/2013 Office visit Maribel ROBERTSP 06/04/2013 Office visit Maribel ROBERTSP 10/09/2012 Office visit Lloyd Oviedo MD 05/08/2010 Office visit Lloyd Oviedo MD 04/21/2010 Office visit Lloyd Oviedo MD
--- OUTSIDE RECORDS SUMMARY | 2018-07-23 10:12 | XMS REPORT ---
Author Author Maribel Vieira [facility] Address [address] [facility] [address] [place], [place] [address] Care Team Providers Care Vp Ancillary Name Role Phone Maribel Vieira PCP Elias [...] IN THE MORNING AND IN THE EVENING fluticasone 50 mcg/actuation nasal spray,suspension 06/06/2016 inhale 2 sprays (100 mcg) in each nostril by intranasal route once daily ramipril 10 mg oral [...] solution 03/28/2017 INJECT 160 UNITS DAILY DXE11.43. [facility] Ultra Test miscellaneous strip 03/28/2017 Use to [...] and pm) Percocet 10-325 mg oral tablet 03/19/2018 04/18/2018 take 1 tablet by oral route every [...] by 0.5 mg weekly - called to [place] [facility] potassium chloride 10 mEq oral tablet [...] by oral route daily for 30 days Synvisc-One 48 mg/6 mL intra-articular syringe 10/01/2016 [...] COPD (chronic obstructive pulmonary disease) Active 07/18/2017 Vital Signs Date Time BP-Sys(mm[Hg] BP-Ellie(mm[Hg]) HR(bpm) RR(rpm) Temp WT HT HC BMI BSA BMI Percentile O2 Sat(%) 02/19/2018 1:22:00 PM 140 mmHg 72 mmHg [...] C AB TEST Returned 05/21/2017 12:00 AM [facility] MEDICARE - flu vaccine administration Reviewed [...] JOINT/BURSA W/O US Reviewed 10/09/2012 12:00 AM Araceli Per 10 Mg [facility]#[id number] Reviewed 12/30/2017 12:00 AM COMPLETE CBC W/AUTO [...] AM SYNVISC-ONE, Per 1 Mg (6ml) [facility] [address]-85 Reviewed 05/06/2014 12:00 AM OFFICE/OUTPATIENT VISIT EST Reviewed 06/03/2014 12:00 AM DRAIN/INJ JOINT/BURSA W/O US Reviewed 06/03/2014 12:00 AM SYNVISC-ONE, Per 1 Mg (6ml) [facility] [address]-17 Reviewed 08/26/2014 12:00 AM RADIOLOGIC EXAM SACROILIAC JOINTS 3/MORE VIEWS Reviewed 01/20/2015 12:00 AM DRAIN/INJ JOINT/BURSA W/O US Reviewed 01/20/2015 12:00 AM SYNVISC-ONE, Per 1 Mg (6ml) [facility] [address]-98 Reviewed 02/24/2015 12:00 AM DRAIN/INJ JOINT/BURSA W/O US Reviewed 02/24/2015 12:00 AM SYNVISC-ONE, Per 1 Mg (6ml) [facility] [address]-80 Reviewed Results Summary Date and Description Results [...] Influenza 05/10/2016 sanofi pasteur PMC Fluzone Quadrivalent [id number] Intramuscular Left Upper Arm 05/10/2016 02/04/2015 141 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 Unknown 06/21/2016 07/01/2018 [...] 07/18/2017 COPD (chronic obstructive pulmonary disease) 07/18/2017 Osteoarthrosis, lower leg Oct 09 2012 9:26AM [...] neuropathy, unspecified Jun 19 2017 1: 52PM Payers Insurance Name Company Name Plan Name Plan Number Policy Number Policy Group Number Start Date Medicare RHC Medicare RHC [id number] Saturday, 2001 Medicare Part A Medicare - Lab/Xray [id number] Saturday, December 29, 2001 Medicare Part B Medicare Of [place] [id number] Saturday, December 29, 2001 Medicare Part A Medicare Part A [id number] Saturday, December 29, 2001 History of Encounters Visit Date Visit Type Provider 02/19/2018 Office visit Maribel GUARDADO 12/30/2017 Office [...] visit Maribel GUARDADO 01/16/2017 Office visit Maribel NealCharley Dariel ROBERTSP 12/19/2016 Office visit Maribel Faith Dariel ANALYTICS ASSOCIATE 12/03/2016 Laboratory Maribel ValCharley Dariel ANALYTICS ASSOCIATE 11/21/2016 Office visit Maribel ValCharley Dariel ANALYTICS ASSOCIATE 10/26/2016 Office visit Maribel Faith Dariel ROBERTSP 10/04/2016 Office visit Maribel Faith Dariel ROBERTSP 09/28/2016 Office visit Maribel ValCharley Dariel ROBERTSP 09/26/2016 Office visit Maribel ROBERTSP 08/29/2016 Office visit Maribel ValCharley Dariel ROBERTSP 08/01/2016 Laboratory Maribelvenkat Vieira ANALYTICS ASSOCIATE 07/04/2016 Office visit Maribel M. Dariel ROBERTSP 06/07/2016 Laboratory Maribel ValCharley Dariel ANALYTICS ASSOCIATE 06/06/2016 Office visit Maribel ValCharley Dariel ROBERTSP 05/09/2016 Office visit Maribel Faith Dariel ROBERTSP 03/07/2016 Office visit Maribel ValCharley Dariel ROBERTSP 02/08/2016 Office visit Maribel ROBERTSP 01/11/2016 Office visit Maribel ROBERTSP 12/14/2015 Office visit Maribel ROBERTSP 11/14/2015 Office visit Maribel ValCharley Dariel ROBERTSP 10/03/2015 Office visit Maribel M. Dariel ROBERTSP 09/06/2015 Laboratory Maribel Vianney ROBERTSP 08/31/2015 Office visit Maribel Vianney ROBERTSP 08/03/2015 Office visit Maribel M. Dariel ROBERTSP 07/06/2015 Office visit Maribel ROBERTSP [...]
--- OUTSIDE RECORDS SUMMARY | 2018-07-23 10:13 | XMS REPORT ---
Author Author Maribel Vieira [facility] Address [address] [facility] [address] [place], [place] [address] Care Team Providers Care Neurosurgical Physician Assistant Name Role Phone Maribel Vieira PCP Elias [...] solution 03/28/2017 INJECT 160 UNITS DAILY DXE11.43. AnametrixTouch Ultra Test miscellaneous strip 03/28/2017 Use to [...] by 0.5 mg weekly - called to [place] [facility] potassium chloride 10 mEq oral [...] C AB TEST Returned 05/21/2017 12:[address] [facility] MEDICARE - flu vaccine administration [...] 10/09/2012 12:00 AM Araceli Per 10 Mg [facility]#[id number] Reviewed 12/30/2017 12:00 AM COMPLETE CBC W/AUTO [...] 12:00 AM SYNVISC-ONE, Per 1 Mg (6ml) [facility] [address]-92 Reviewed 05/06/2014 12:00 AM OFFICE/OUTPATIENT VISIT EST Reviewed 06/03/2014 12:00 AM DRAIN/INJ JOINT/BURSA W/O US Reviewed 06/03/2014 12:00 AM SYNVISC-ONE, Per 1 Mg (6ml) [facility] [address]-76 Reviewed 08/26/2014 12:00 AM RADIOLOGIC EXAM SACROILIAC JOINTS 3/MORE VIEWS Reviewed 01/20/2015 12:00 AM DRAIN/INJ JOINT/BURSA W/O US Reviewed 01/20/2015 12:00 AM SYNVISC-ONE, Per 1 Mg (6ml) [facility] [address]-17 Reviewed 02/24/2015 12:00 AM DRAIN/INJ JOINT/BURSA W/O US Reviewed 02/24/2015 12:00 AM SYNVISC-ONE, Per 1 Mg (6ml) [facility] [address]-08 Reviewed Results Summary Date and Description Results [...] Influenza 05/10/2016 sanofi pasteur PMC Fluzone Quadrivalent [id number] Intramuscular Left Upper Arm 05/10/2016 02/04/2015 141 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 Unknown 06/21/2016 07/01/2018 [...] right, initial encounter Jun 05 2017 2:56PM Payers Insurance Name Company Name Plan Name Plan Number Policy Number Policy Group Number Start Date Medicare RHC Medicare RHC [id number] Saturday, 2001 Medicare Part A Medicare - Lab/Xray [id number] Saturday, December 29, 2001 Medicare Part B Medicare Of [place] [id number] Saturday, December 29, 2001 Medicare Part A Medicare Part A [id number] Saturday, December 29, 2001 History of Encounters [...] visit Maribel GUARDADO 05/28/2017 Office visit Maribel UGARDADO 05/21/2017 Office visit Maribel GUARDADO 02/20/2017 Office visit Maribel GUARDADO 01/16/2017 Office visit Maribel GUARDADO 12/19/2016 Office visit Maribel GUARDADO 12/03/2016 Laboratory Maribel GUARDADO 11/21/2016 Office visit Maribel Vianney ROBERTSP 10/26/2016 Office visit Maribel ValCharley Dariel ROBERTSP 10/04/2016 Office visit Maribel Vieira SUPERVISOR TOY ASSEMBLY 09/28/2016 Office visit Maribel ValCharley Dariel ROBERTSP 09/26/2016 Office visit Maribel Faith Dariel ROBERTSP 08/29/2016 Office visit Maribel ValCharley Dariel ROBERTSP 08/01/2016 Laboratory Maribel NealCharely Dariel SUPERVISOR TOY ASSEMBLY 07/04/2016 Office visit Maribel ROBERTSP 06/07/2016 Laboratory Maribel M. Dariel SUPERVISOR TOY ASSEMBLY 06/06/2016 Office visit Maribel ValCharley Dariel ROBERTSP 05/09/2016 Office visit Maribel ValCharley Dariel ROBERTSP 03/07/2016 Office visit Maribel ROBERTSP 02/08/2016 Office visit Maribel ROBERTSP 01/11/2016 Office visit Maribel ValCharley Dariel ROBERTSP 12/14/2015 Office visit Maribel ROBERTSP 11/14/2015 Office visit Maribel ROBERTSP 10/03/2015 Office visit Maribel ROBERTSP 09/06/2015 Laboratory Maribel M. Dariel ROBERTSP 08/31/2015 Office visit Maribel ValCharley Dariel ROBETRSP 08/03/2015 Office visit Maribel M. Dariel ROBERTSP [...]
--- OUTSIDE RECORDS SUMMARY | 2018-07-23 10:15 | XMS REPORT ---
Author Author Maribel Vieira [facility] Address [address] [facility] [address] [place], [place] [address] Care Team Providers Care Hr Advisor Name Role Phone Maribel Vieira PCP Elias [...] solution 03/28/2017 INJECT 160 UNITS DAILY DXE11.43. Striped SailTouch Ultra Test miscellaneous strip 03/28/2017 Use to [...] by 0.5 mg weekly - called to [place] [facility] potassium chloride 10 mEq oral tablet [...] C AB TEST Returned 05/21/2017 12:00 AM [facility] MEDICARE - flu vaccine administration Reviewed [...] 10/09/2012 12:00 AM Araceli Per 10 Mg [facility]#[id number] Reviewed 12/30/2017 12:00 AM COMPLETE CBC W/AUTO [...] 12:00 AM SYNVISC-ONE, Per 1 Mg (6ml) [facility] [address]-42 Reviewed 05/06/2014 12:00 AM OFFICE/OUTPATIENT VISIT EST Reviewed 06/03/2014 12:00 AM DRAIN/INJ JOINT/BURSA W/O US Reviewed 06/03/2014 12:00 AM SYNVISC-ONE, Per 1 Mg (6ml) [facility] [address]-63 Reviewed 08/26/2014 12:00 AM RADIOLOGIC EXAM SACROILIAC JOINTS 3/MORE VIEWS Reviewed 01/20/2015 12:00 AM DRAIN/INJ JOINT/BURSA W/O US Reviewed 01/20/2015 12:00 AM SYNVISC-ONE, Per 1 Mg (6ml) [facility] [address]-22 Reviewed 02/24/2015 12:00 AM DRAIN/INJ JOINT/BURSA W/O US Reviewed 02/24/2015 12:00 AM SYNVISC-ONE, Per 1 Mg (6ml) [facility] [address]-88 Reviewed Results Summary Date and Description Results [...] Influenza 05/10/2016 sanofi pasteur PMC Fluzone Quadrivalent [id number] Intramuscular Left Upper Arm 05/10/2016 02/04/2015 141 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 Unknown 06/21/2016 07/01/2018 [...] 1:50PM Chronic depression Jun 05 2017 2:56PM Payers Insurance Name Company Name Plan Name Plan Number Policy Number Policy Group Number Start Date Medicare [facility] Medicare [facility] [id number] Saturday, 2001 Medicare Part A Medicare - Lab/Xray [id number] Saturday, December 29, 2001 Medicare Part B Medicare Of [place] [id number] Saturday, December 29, 2001 Medicare Part A Medicare Part A [id number] Saturday, December 29, 2001 History of Encounters [...] visit Maribel GUARDADO 10/04/2016 Office visit Maribel M. Dariel ROBERTSP 09/28/2016 Office visit Maribel M. Dariel ROBERTSP 09/26/2016 Office visit Maribel ValCharley Dariel CASKET TRIMMER 08/29/2016 Office visit Maribel Faith Dariel CASKET TRIMMER 08/01/2016 Laboratory Maribelvenkat Vieira CASKET TRIMMER 07/04/2016 Office visit Maribel M. Dariel ROBERTSP 06/07/2016 Laboratory Maribel ValCharley Dariel CASKET TRIMMER 06/06/2016 Office visit Maribel ValCharley Dariel ROBERTSP 05/09/2016 Office visit Maribel M. Dariel ROBERTSP 03/07/2016 Office visit Maribel M. Dariel ROBERTSP 02/08/2016 Office visit Maribel ValCharley Dariel ROBERTSP 01/11/2016 Office visit Maribel NealCharley Dariel ROBERTSP 12/14/2015 Office visit Maribel ValCharley Dariel ROBERTSP 11/14/2015 Office visit Maribel ValCharley Dariel ROBERTSP 10/03/2015 Office visit Maribel ValCharley Dariel ROBERTSP 09/06/2015 Laboratory Maribel ValCharley Dariel ROBERTSP 08/31/2015 Office visit Maribel ROBERTSP 08/03/2015 Office visit Maribel Faith Dariel ROBERTSP 07/06/2015 Office visit Maribel Faith Dariel ROBERTSP 06/09/2015 Nurse visit Maribel ROBERTSP 05/17/2015 Office visit Maribel ROBERTSP 04/25/2015 Office visit Maribel Faith Dariel ROBERTSP 03/28/2015 Office visit Maribel Vianney ROBERTSP 02/24/2015 Office visit Maribel ROBERTSP 01/20/2015 [...] visit Maribel ROBERTSP 02/11/2014 Office visit Maribel Vieira [facility] 01/14/2014 Office visit Maribel Vieira [facility] 12/17/2013 Office visit Maribel Vieira [facility] 11/19/2013 Office visit Maribel Vieira [facility] 10/22/2013 Office visit Maribel Vieira [facility] 09/24/2013 Office visit Maribel Vieira [facility] 08/27/2013 Office visit Maribel Vieira [facility] 07/02/2013 Office visit Maribel Vieira [facility] 06/04/2013 Office visit Maribel Vieira [facility] 10/09/2012 Office visit Lloyd Oviedo MD 05/08/2010 Office visit Lloyd Oviedo MD 04/21/2010 Office visit Lloyd Oviedo MD
--- OUTSIDE RECORDS SUMMARY | 2018-07-23 10:18 | XMS REPORT ---
Author Author Maribel Vieira [facility] Address [address] [facility] [address] [place], [place] [id number] Care Team Providers Care Finance Vice President Name Role Phone Maribel Vieira PCP Elias [...] solution 03/28/2017 INJECT 160 UNITS DAILY DXE11.43. Stack[employer]Touch Ultra Test miscellaneous strip 03/28/2017 Use to [...] by 0.5 mg weekly - called to [place] [facility] potassium chloride 10 mEq oral tablet [...] C AB TEST Returned 05/21/2017 12:00 AM [facility] - flu vaccine administration Reviewed [...] 10/09/2012 12:00 AM Araceli Per 10 Mg [facility]#[id number] Reviewed 12/30/2017 12:00 AM COMPLETE CBC W/AUTO [...] 12:00 AM SYNVISC-ONE, Per 1 Mg (6ml) [facility] [address]-54 Reviewed 05/06/2014 12:00 AM OFFICE/OUTPATIENT VISIT EST Reviewed 06/03/2014 12:00 AM DRAIN/INJ JOINT/BURSA W/O US Reviewed 06/03/2014 12:00 AM SYNVISC-ONE, Per 1 Mg (6ml) [facility] [address]-06 Reviewed 08/26/2014 12:00 AM RADIOLOGIC EXAM SACROILIAC JOINTS 3/MORE VIEWS Reviewed 01/20/2015 12:00 AM DRAIN/INJ JOINT/BURSA W/O US Reviewed 01/20/2015 12:00 AM SYNVISC-ONE, Per 1 Mg (6ml) [facility] [address]-58 Reviewed 02/24/2015 12:00 AM DRAIN/INJ JOINT/BURSA W/O US Reviewed 02/24/2015 12:00 AM SYNVISC-ONE, Per 1 Mg (6ml) [facility] [address]-94 Reviewed Results Summary Date and Description Results [...] Influenza 05/10/2016 sanofi pasteur PMC Fluzone Quadrivalent [id number] Intramuscular Left Upper Arm 05/10/2016 02/04/2015 141 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/2013 Unknown primary care md UNK Unknown 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 Unknown 06/21/2016 07/01/2018 [...] 1:25PM Chronic depression May 28 2017 1:50PM Payers Insurance Name Company Name Plan Name Plan Number Policy Number Policy Group Number Start Date Medicare RHC Medicare RHC [id number] Saturday, 2001 Medicare Part A Medicare - Lab/Xray [id number] Saturday, December 29, 2001 Medicare Part B Medicare Of [place] [id number] Saturday, December 29, 2001 Medicare Part A Medicare Part A [id number] Saturday, December 29, 2001 History of Encounters [...] visit Maribel GUARDADO 10/04/2016 Office visit Maribel Vieira TICKER MAINTAINER 09/28/2016 Office visit Maribel Faith Dariel ROBERTSP 09/26/2016 Office visit Maribel ROBERTSP 08/29/2016 Office visit Maribel ValCharley Dariel ROBERTSP 08/01/2016 Laboratory Maribel M. Dariel ROBERTSP 07/04/2016 Office visit Marbiel Faith Dariel ROBERTSP 06/07/2016 Laboratory Maribel M. Dariel ROBERTSP 06/06/2016 Office visit Maribel ROBERTSP 05/09/2016 Office visit Maribel ValCharley Dariel ROBERTSP 03/07/2016 Office visit Maribel M. Dariel ROBERTSP 02/08/2016 Office visit Maribel M. Dariel ROBERTSP 01/11/2016 Office visit Maribel ROBERTSP 12/14/2015 Office visit Maribel ROBERTSP 11/14/2015 Office visit Maribel ValCharley Dariel ROBERTSP 10/03/2015 Office visit Maribel ValCharley Dariel ROBERTSP 09/06/2015 Laboratory Maribel Vianney ROEBRTSP 08/31/2015 Office visit Maribel ROBERTSP 08/03/2015 Office [...] visit Maribel ROBERTSP 12/17/2013 Office visit Maribel ORBERTSP 11/19/2013 Office visit Maribel ROBERTSP 10/22/2013 Office visit Maribel ROBERTSP 09/24/2013 Office visit Maribel ROBERTSP 08/27/2013 Office visit Maribel ROBERTSP 07/02/2013 Office visit Maribel ROBERTSP 06/04/2013 Office visit Maribel ROBERTSP 10/09/2012 Office visit Lloyd Oviedo MD 05/08/2010 Office visit Lloyd Oviedo MD 04/21/2010 Office visit Lloyd Oviedo MD
--- OUTSIDE RECORDS SUMMARY | 2018-07-23 10:19 | XMS REPORT ---
Author Author Maribel Vieira [facility] Address [address] [facility] [address] [place], [place] [address] Care Team Providers Care Voice Systems Engineer Name Role Phone Maribel Vieira PCP [...] solution 03/28/2017 INJECT 160 UNITS DAILY DXE11.43. [employer] HealthTouch Ultra Test miscellaneous strip 03/28/2017 Use to [...] by 0.5 mg weekly - called to [place] [facility] potassium chloride 10 mEq oral tablet [...] 12:00 AM Araceli Per 10 Mg [facility]#5147-2086-97 Reviewed 12/30/2017 12:00 AM COMPLETE CBC W/AUTO [...] AM SYNVISC-ONE, Per 1 Mg (6ml) [facility] [address]-22 Reviewed 05/06/2014 12:00 AM OFFICE/OUTPATIENT VISIT EST Reviewed 06/03/2014 12:00 AM DRAIN/INJ JOINT/BURSA W/O US Reviewed 06/03/2014 12:00 AM SYNVISC-ONE, Per 1 Mg (6ml) [facility] [address]-22 Reviewed 08/26/2014 12:00 AM RADIOLOGIC EXAM SACROILIAC JOINTS 3/MORE VIEWS Reviewed 01/20/2015 12:00 AM DRAIN/INJ JOINT/BURSA W/O US Reviewed 01/20/2015 12:00 AM SYNVISC-ONE, Per 1 Mg (6ml) [facility] [address]-83 Reviewed 02/24/2015 12:00 AM DRAIN/INJ JOINT/BURSA W/O US Reviewed 02/24/2015 12:00 AM SYNVISC-ONE, Per 1 Mg (6ml) [facility] [address]-24 Reviewed Results Summary Date and Description Results [...] Influenza 05/10/2016 sanofi pasteur PMC Fluzone Quadrivalent [id number] Intramuscular Left Upper Arm 05/10/2016 02/04/2015 141 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 Unknown 06/21/2016 07/01/2018 [...] of lumbar region Feb 19 2018 1:25PM Payers Insurance Name Company Name Plan Name Plan Number Policy Number Policy Group Number Start Date Medicare RHC Medicare RHC [id number] Saturday, 2001 Medicare Part A Medicare - Lab/Xray [id number] Saturday, December 29, 2001 Medicare Part B Medicare Of [place] [id number] Saturday, December 29, 2001 Medicare Part A Medicare Part A [id number] Saturday, December 29, 2001 History of Encounters [...] visit Maribel GUARDADO 09/28/2016 Office visit Maribel ValCharley Dariel ROBERTSP 09/26/2016 Office visit Maribel ValCharley Dariel ROBERTSP 08/29/2016 Office visit Maribel ROBERTSP 08/01/2016 Laboratory Maribel ValCharley Dariel ROBERTSP 07/04/2016 Office visit Maribel Faith Dariel ROBERTSP 06/07/2016 Laboratory Maribel M. Dariel ROBERTSP 06/06/2016 Office visit Maribel ROBERTSP 05/09/2016 Office visit Maribel NealCharley Dariel ROBERTSP 03/07/2016 Office visit Maribel NealCharley Dariel ROBERTSP 02/08/2016 Office visit Maribel ValCharley Dariel ROBERTSP 01/11/2016 Office visit Maribel NealCharley Dariel ROBERTSP 12/14/2015 Office visit Maribel ROBERTSP 11/14/2015 Office visit Maribel ROBERTSP 10/03/2015 Office visit Maribel ValCharley Dariel [...]
--- OUTSIDE RECORDS SUMMARY | 2018-07-23 10:21 | XMS REPORT ---
Author Author Maribel Vieira [facility] Address [address] [place], [place] [id number] Care Team Providers Care Daycare Teacher Name Role Phone Maribel Vieira PCP [...] solution 03/28/2017 INJECT 160 UNITS DAILY DXE11.43. [employer] Ultra Test miscellaneous strip 03/28/2017 Use to [...] the same time each day with food Percocet 10-325 mg oral tablet 02/19/2018 03/21/2018 take 1 tablet by oral route every 6 hours as needed for 30 days levothyroxine 50 mcg oral tablet 02/21/2018 TAKE [...] tablet po twice BID (am and pm) Name Start Date Expiration Date SIG Comments [...] by 0.5 mg weekly - called to [facility] potassium chloride 10 mEq oral tablet [...] C AB TEST Returned 05/21/2017 12:00 AM [facility] MEDICARE - flu vaccine administration Reviewed [...] 12:00 AM Araceli Per 10 Mg [facility]#4196-0709-48 Reviewed 12/30/2017 12:00 AM COMPLETE CBC W/AUTO [...] AM SYNVISC-ONE, Per 1 Mg (6ml) [facility] [address]-65 Reviewed 05/06/2014 12:00 AM OFFICE/OUTPATIENT VISIT EST Reviewed 06/03/2014 12:00 AM DRAIN/INJ JOINT/BURSA W/O US Reviewed 06/03/2014 12:00 AM SYNVISC-ONE, Per 1 Mg (6ml) [facility] [address]-49 Reviewed 08/26/2014 12:00 AM RADIOLOGIC EXAM SACROILIAC JOINTS 3/MORE VIEWS Reviewed 01/20/2015 12:00 AM DRAIN/INJ JOINT/BURSA W/O US Reviewed 01/20/2015 12:00 AM SYNVISC-ONE, Per 1 Mg (6ml) [facility] [address]-08 Reviewed 02/24/2015 12:00 AM DRAIN/INJ JOINT/BURSA W/O US Reviewed 02/24/2015 12:00 AM SYNVISC-ONE, Per 1 Mg (6ml) [facility] [address]-77 Reviewed Results Summary Date and Description Results [...] Influenza 05/10/2016 sanofi pasteur PMC Fluzone Quadrivalent [id number] Intramuscular Left Upper Arm 05/10/2016 02/04/2015 141 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/2013 Unknown obstetrics gyn physician UNK Unknown 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 Unknown 06/21/2016 07/01/2018 [...] Number Start Date Medicare RHC Medicare RHC [id number] Saturday, 2001 Medicare Part A Medicare - Lab/Xray [id number] Saturday, December 29, 2001 Medicare Part B Medicare Of [place] [id number] Saturday, December 29, 2001 Medicare Part A Medicare Part A [id number] Saturday, December 29, 2001 History of Encounters [...] Office visit Maribel ROBERTSP 07/06/2015 Office visit Mraibel ROBERTSP 06/09/2015 Nurse visit Maribel ROBERTSP 05/17/2015 [...]
--- OUTSIDE RECORDS SUMMARY | 2018-07-23 10:23 | XMS REPORT ---
Author Author Maribel iVeira [facility] Address [address] [place], [place] [id number] Care Team Providers Care Aviation Survival Technician Name Role Phone Maribel Vieira PCP Elias [...] HOURS NEEDED FOR SPASM. FOR 30 DAYS levothyroxine 50 mcg oral tablet 10/03/2015 take 1 tablet (50 mcg) by oral route once daily Symbicort 160-4.5 [...] solution 03/28/2017 INJECT 160 UNITS DAILY DXE11.43. [employer] Ultra Test miscellaneous strip 03/28/2017 Use to test blood sugar six times daily bupropion HCl 100 mg oral tablet 04/08/2017 TAKE 1 TABLET BY MOUTH THREE TIMES DAILY atorvastatin 80 mg oral tablet 06/26/2017 TAKE 1 TABLET BY MOUTH ONCE A DAY IN THE EVENING Ranexa 1,000 mg oral tablet extended release 12 hr 06/28/2017 12/13/2017 TAKE 1 TABLET BY MOUTH TWO TIMES A DAY Voltaren 1 % topical gel 08/07/2017 apply [...] the same time each day with food Lyrica 100 mg oral capsule 12/01/2017 03/01/2018 take 1 capsule (100 mg) by oral route 3 times per day for 30 days Ambien 10 mg oral tablet 12/02/2017 take 1 tablet (10 mg) by oral route once daily at bedtime Percocet 10-325 mg oral tablet 12/03/2017 01/02/2018 take 1 tablet by oral route every 6 hours as needed for 30 days cephalexin 500 mg oral capsule 12/03/2017 12/10/2017 take 1 capsule (500 mg) by oral route every 12 hours for 7 days Name Start Date Expiration [...] oral route once daily for 5 days furosemide 40 mg oral tablet 04/08/2017 08/06/2017 Take 1 tablet (40mg) and 1 ( 20mg) tablet QD, (60mgs OD). [employer] Ultra Test miscellaneous strip 04/30/2017 04/30/2017 Use to test blood sugar six times daily Aspirin 325 mg Oral Tablet 05/07/2017 take 1 tablet (325 mg) by oral route once daily aspirin 325 mg oral tablet,delayed release (DR/EC) 05/10/2017 07/09/2017 TAKE 1 TABLET BY MOUTH ONCE A DAY risperidone 0.5 mg oral tablet 05/28/2017 WEAN by 0.5 mg weekly - called to [facility] potassium chloride 10 mEq oral tablet extended release 05/28/2017 05/28/2017 Take 2 tablets daily in the morning and 1 tablet in the evening metoclopramide HCl 10 mg oral tablet 06/27/2017 09/19/2017 TAKE 1 TABLET BY MOUTH FOUR TIMES A DAY AFTER MEALS AND AT BEDTIME levothyroxine 50 mcg oral tablet 06/27/2017 09/19/2017 TAKE 1 TABLET BY MOUTH ONCE A DAY doxycycline hyclate 100 mg oral [...] 1 TABLET BY MOUTH ONCE A DAY Discontinued Name Start Date Discontinued Date SIG [...] Hypertension Active Insomnia Active Arthritis unspecified Active Chronic Obstructive Pulmonary Disease Active GERD Active Chronic Back Pain Active cervical neck pain Active Cervical Radiculopathy Active 01/14/2014 Postlaminectomy syndrome of lumbar region Active 01/14/2014 Radiculopathy, lumbosacral Active 01/14/2014 Sacroiliac joint dysfunction Active 10/06/2014 [...] HC BMI BSA BMI Percentile O2 Sat(%) 12/03/2017 1:30:00 PM 142 mmHg 88 mmHg [...] substance abuse disabeled Did not serve in [employer] Security Disability History of Procedures Date Ordered [...] C AB TEST Returned 05/21/2017 12:00 AM [facility] MEDICARE - flu vaccine administration Reviewed 05/21/2017 [...] Reviewed 11/06/2017 12:00 AM GLYCOSYLATED HEMOGLOBIN TEST Returned 11/06/2017 12:00 AM COLLECTION VENOUS BLOOD VENIPUNCTURE Reviewed 10/09/2012 12:00 AM DRAIN/INJ JOINT/BURSA W/O US Reviewed 10/09/2012 12:00 AM Kenalog, Per 10 Mg [facility]#[id number] Reviewed 06/04/2013 12:00 AM Drug Screen (Medicare) [...] AM SYNVISC-ONE, Per 1 Mg (6ml) [facility] [address]-37 Reviewed 05/06/2014 12:00 AM OFFICE/OUTPATIENT VISIT EST Reviewed 06/03/2014 12:00 AM DRAIN/INJ JOINT/BURSA W/O US Reviewed 06/03/2014 12:00 AM SYNVISC-ONE, Per 1 Mg (6ml) [facility] [address]-80 Reviewed 08/26/2014 12:00 AM RADIOLOGIC EXAM SACROILIAC JOINTS 3/MORE VIEWS Reviewed 01/20/2015 12:00 AM DRAIN/INJ JOINT/BURSA W/O US Reviewed 01/20/2015 12:00 AM SYNVISC-ONE, Per 1 Mg (6ml) [facility] [address]-84 Reviewed 02/24/2015 12:00 AM DRAIN/INJ JOINT/BURSA W/O US Reviewed 02/24/2015 12:00 AM SYNVISC-ONE, Per 1 Mg (6ml) [facility] [address]-77 Reviewed Results Summary Date and Description Results [...] 6.88 ng/dL % Free Testosterone 1.950 % History Of Immunizations Name Date Admin Mfg Name Mfg Code Trade Name Lot# Route Inj Vis Given Vis Pub CVX Influenza 05/10/2016 sanofi pasteur PMC Fluzone Quadrivalent [id number] Intramuscular Left Upper Arm 05/10/2016 02/04/2015 141 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/2013 Unknown provider contracting consultant UNK Unknown 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 Unknown 06/21/2016 07/01/2018 33 Influenza 05/21/2017 sanofi pasteur PMC FLUZONE [id number] Intramuscular Left Arm 05/22/2017 01/24/2011 158 History of Past Illness Name Date of Onset Comments Arthritis unspecified Angina Arrhythmia Congestive Heart Failure Coronary artery disease PTCA December 2014 - normal Hypertension Myocardial Infarction Depression with Anxiety Chronic Obstructive Pulmonary Disease GERD Hypercholesterolemia Hepatitis Insomnia stroke Chronic Back Pain cervical neck pain Cervical Radiculopathy 01/14/2014 Postlaminectomy syndrome of lumbar region 01/14/2014 Radiculopathy, lumbosacral 01/14/2014 Lumbago Apr 21 2010 8:56AM Muscle [...] 1:32PM Skin infection Dec 03 2017 1:32PM Payers Insurance Name Company Name Plan Name Plan Number Policy Number Policy Group Number Start Date Medicare RHC Medicare RHC [id number] Saturday, 2001 Medicare Part A Medicare - Lab/Xray [id number] Saturday, December 29, 2001 Medicare Part B Medicare Of [place] [id number] Saturday, December 29, 2001 Medicare Part A Medicare Part A [id number] Saturday, December 29, 2001 History of Encounters Visit Date Visit Type Provider 12/03/2017 Office visit Maribel GUARDADO 11/06/2017 Office visit Maribel GUARDADO 10/09/2017 Office visit Maribel GUARDADO 09/26/2017 [facility] Rosendo Marina MD 09/11/2017 Office [...] visit Maribel ROBERTSP 08/29/2016 Office visit Maribel M. Dariel ROBERTSP 08/01/2016 Laboratory Maribel ValCharley Dariel APPEALS REVIEWER VETERAN 07/04/2016 Office visit Maribel ValCharley Dariel ROBERTSP 06/07/2016 Laboratory Maribel M. Dariel ROBERTSP 06/06/2016 Office visit Maribel ValCharley Dariel ROBERTSP 05/09/2016 Office visit Maribel NealCharley Dariel ROBERTSP 03/07/2016 Office visit Maribel ROBERTSP 02/08/2016 Office visit Maribel ROBERTSP 01/11/2016 Office visit Maribel ValCharley Dariel ROBERTSP 12/14/2015 Office visit Maribel M. Dariel ROBERTSP 11/14/2015 Office visit Maribel ROBERTSP 10/03/2015 Office visit Maribel ROBERTSP 09/06/2015 Laboratory Maribel M. Dariel ROBERTSP 08/31/2015 Office visit Maribel ValCharley Dariel ROBERTSP 08/03/2015 Office visit Maribel ROBERTSP 07/06/2015 [...] visit Maribel ROBERTSP 03/11/2014 Office visit Maribel ROBRETSP 02/11/2014 Office visit Maribel ROBERTSP 01/14/2014 Office [...]
--- OUTSIDE RECORDS SUMMARY | 2018-07-23 10:24 | XMS REPORT ---
Author Author Maribel Vieira [facility] Address [address] [place], [place] [id number] Care Team Providers Care Customer Engagement Analyst Name Role Phone Maribel Vieira PCP Elias Malagon Unavailable Unavailable Deborah Linares Unavailable Unavailable Allergies and Adverse Reactions Name Reaction Notes PENICILLINS Plan of Treatment Planned Activity Comments Planned Date Planned Time Plan/Goal Lipid profile 09/06/2015 12:00 AM GENERAL HEALTH PANEL 09/06/2015 12:00 AM PSA TOTAL 09/06/2015 12:00 AM Medications Active Name Start Date Estimated Completion Date SIG Comments Novolog 100 unit/mL subcutaneous solution inject by subcutaneous route as per insulin sliding scale protocol Nitrostat 0.4 mg sublingual tablet, sublingual place 1 tablet (0.4 mg) by buccal route at the first sign of an attack; no more than 3 tablets are recommended within a 15 minute period. Reglan 10 mg oral tablet take 1 tablet (10 mg) by oral route 4 times per day 30 minutes before meals and at bedtime aspirin 325 mg oral tablet take 1 tablet (325 mg) by oral route once daily Zetia 10 mg oral tablet take 1 tablet (10 mg) by oral route once daily atorvastatin 80 mg oral tablet take 1 tablet (80 mg) by oral route once daily at bedtime Neurontin 300 mg oral capsule 10/04/2014 TAKE 2 CAPSULES (600 MG) BY ORAL ROUTE 3 TIMES PER DAY FOR 30 DAYS Voltaren 1 % topical gel 12/23/2014 apply 2 gram to the affected area(s) by topical route 4 times per day Neurontin 300 mg oral capsule 03/08/2015 TAKE 2 CAPSULES (600 MG) BY ORAL ROUTE 3 TIMES PER DAY FOR 30 DAYS cyclobenzaprine 10 mg oral tablet 05/10/2015 TAKE 1 TAB BY MOUTH EVERY 8 HOURS NEEDED FOR SPASM. FOR 30 DAYS cyclobenzaprine 10 mg oral tablet 08/03/2015 TAKE 1 TABLET BY MOUTH EVERY 8 HOURS NEEDED FOR SPASM Novolog 100 unit/mL subcutaneous solution 09/06/2015 INJECT 160 UNITS DAILY DXE11.43. potassium chloride 10 mEq oral tablet extended release 10/03/2015 Take 2 tablets daily in the morning and 1 tablet in the evening levothyroxine 50 mcg oral tablet 10/03/2015 take 1 tablet (50 mcg) by oral route once daily bupropion HCl 100 mg oral tablet 10/10/2015 TAKE 1 TABLET BY MOUTH THREE TIMES DAILY Symbicort 160-4.5 mcg/actuation inhalation HFA aerosol inhaler 10/19/2015 inhale 2 puffs by inhalation route 2 times per day in the morning and evening Cymbalta 60 mg oral capsule,delayed release(DR/EC) 10/31/2015 04/23/2017 take 1 capsule by oral route 2 times a day for 90 days Protonix 40 mg oral tablet,delayed release (DR/EC) 11/09/2015 08/05/2016 take 1 tablet (40 mg) by oral route once daily for 90 days furosemide 40 mg oral tablet 12/07/2015 12/01/2016 take 1.5 tablets by oral route daily for 90 days Coreg 12.5 mg oral tablet 01/11/2016 take 1 tablet (12.5 mg) by oral route 2 times per day with food Ranexa 1,000 mg oral tablet extended release 12 hr 02/01/2016 take 1 tablet (1,000 mg) by oral route 2 times per day ramipril 10 mg oral capsule 02/01/2016 take 1 capsule (10 mg) by oral route once daily Ambien 10 mg oral tablet 04/16/2016 07/15/2016 take 1 tablet (10 mg) by oral route once daily at bedtime (for male) for 30 days Percocet 10-325 mg oral tablet 05/09/2016 06/08/2016 take 1 tablet by oral route every 8 hours as needed for 30 days Name Start Date Expiration Date SIG Comments Neurontin 300 mg oral capsule 03/11/2014 08/08/2014 take 2 capsules (600 mg) by oral route 3 times per day for 30 days cyclobenzaprine 10 mg oral tablet 05/06/2014 11/02/2014 TAKE 1 TAB BY MOUTH EVERY 8 HOURS NEEDED FOR SPASM. for 30 days Synvisc-One 48 mg/6 mL intra-articular syringe 02/24/2015 inject 6 milliliters by intra-articular route into the left knee Neurontin 300 mg oral capsule 07/04/2015 TAKE 2 CAPSULES (600 MG) BY ORAL ROUTE 3 TIMES PER DAY FOR 30 DAYS duloxetine 60 mg oral capsule,delayed release(DR/EC) 10/28/2015 TAKE 1 CAPSULE (60 MG) BY MOUTH 2 TIMES DAILY PATIENT NEEDS TO ESTABLISH WITH NEW PCP BEFORE NEXT REFILL. (06/16/15). risperidone 1 mg oral tablet 02/01/2016 04/01/2016 take 2 tablets by oral route daily for 60 days Discontinued Name Start Date Discontinued Date [...] by oral route daily for 30 days Problem List Description Status Onset Congestive Heart [...] Type 1 diabetes mellitus with complications Active 09/01/2015 Chronic back pain Active 09/01/2015 Chronic kidney disease, stage 3 (moderate) Active Vital Signs Date Time BP-Sys(mm[Hg] BP-Ellie(mm[Hg]) HR(bpm) RR(rpm) Temp WT HT HC BMI BSA BMI Percentile O2 Sat(%) 05/09/2016 1:53:00 PM 128 mmHg 78 mmHg 74 bpm 14 rpm 96.8 F 311 lbs 76 in 37.86 kg/m2 2.75 m2 98 % 03/07/2016 1:18:00 PM 130 mmHg 88 mmHg 74 bpm 14 rpm 96.4 F 310 lbs 76 in 37.734 kg/m 2.7459 m 96 % 02/08/2016 1:18:00 PM 120 mmHg 74 mmHg 77 bpm 14 rpm 96.4 F 308.25 lbs 76 in 37.52 kg/m2 2.74 m2 96 % 01/11/2016 1:32:00 PM 132 mmHg 58 mmHg 84 bpm 20 rpm 97.2 F 304.5 lbs 75.5 in 37.5571 kg/m 2.7125 m 91 % 12/14/2015 1:17:00 PM 140 mmHg 74 mmHg 73 bpm 20 rpm 97.8 F 308.5 lbs 75.5 in 38.05 kg/m2 2.73 m2 94 % 11/14/2015 1:26:00 PM 116 mmHg 56 mmHg 67 bpm 20 rpm 97.9 F 310 lbs 75.5 in 38.2354 kg/m 2.7369 m 95 % 10/03/2015 1:18:00 PM 134 mmHg 78 mmHg 78 bpm 18 rpm 97 F 308.75 lbs 75.5 in 38.08 kg/m2 2.73 m2 96 % 08/31/2015 1:16:00 PM 116 mmHg 66 mmHg 65 bpm 18 rpm 97.8 F 314 lbs 75.5 in 38.7288 kg/m 2.7545 m 93 % 08/03/2015 1:49:00 PM 132 mmHg 72 mmHg 74 bpm 20 rpm 97 F 315 lbs 75.5 in 38.85 kg/m2 2.76 m2 07/06/2015 1:58:00 PM 110 mmHg 82 mmHg 66 bpm 18 rpm 96.4 F 310.75 lbs 75.5 in 38.3279 kg/m 2.7402 m 05/17/2015 8:53:00 AM 118 mmHg 62 mmHg 64 bpm 18 rpm 97.5 F 315 lbs 75.5 in 38.85 kg/m2 2.76 m2 04/25/2015 8:13:00 AM 122 mmHg 70 mmHg 18 rpm 97.2 F 310 lbs 75.5 in 38.2354 kg/m 2.7369 m 03/28/2015 8:16:00 AM 118 mmHg 78 mmHg 72 bpm 18 rpm 97.3 F 310 lbs 75.5 in 38.24 kg/m2 2.74 m2 02/24/2015 8:20:00 AM 140 mmHg 80 mmHg 80 bpm 18 rpm 96.6 F 315 lbs 75.5 in 38.8521 kg/m 2.7588 m 01/20/2015 1:49:00 PM 128 mmHg 78 mmHg 60 bpm 18 rpm 97 F 315 lbs 75.5 in 38.85 kg/m2 2.76 m2 12/23/2014 8:29:00 AM 134 mmHg 72 mmHg 66 bpm 18 rpm 98.2 F 314 lbs 75.5 in 38.7288 kg/m 2.7545 m 11/25/2014 8:48:00 AM 122 mmHg 64 mmHg 70 bpm 18 rpm 96.6 F 327 lbs 75 in 40.87 kg/m2 2.80 m2 09/29/2014 4:13:00 PM 323 lbs 08/26/2014 8:54:00 [...] F 328 lbs 75.5 in 40.4556 kg/m 2.82 m2 06/04/2013 8:40:00 AM 150 mmHg 80 mmHg 78 bpm 16 rpm 97.4 F 333.25 lbs 75.5 in 41.10 kg/m2 2.8376 m 10/09/2012 8:33:00 AM 110 mmHg 82 mmHg 84 bpm 18 rpm 96.3 F 315 lbs 75 in 39.3719 kg/m 2.75 m2 05/08/2010 12:54:00 PM 137 mmHg 87 mmHg 96 bpm 18 rpm 96.4 F 309 lbs 04/21/2010 8:55:00 AM 144 mmHg 82 mmHg 92 bpm 18 rpm 95.6 F 312.25 lbs Social History Name Description Comments Lives with friend lives in a house with girlfriend & his children with 2 adult /grown children & has 2[twin ] 16 yr olds at home Former smoker Former quit 7 days ago....smoked x 33 years Has never used alcohol Denies illicit substance abuse disabeled Did not serve in [employer] Security Disability History of Procedures Date Ordered Description Order Status 06/09/2015 12:00 AM OFFICE/OUTPATIENT VISIT EST Reviewed 09/01/2015 12:00 AM GENERAL HEALTH PANEL Reviewed 09/01/2015 12:00 AM ASSAY OF PSA TOTAL Reviewed 09/01/2015 12:00 AM LIPID PANEL Reviewed 11/14/2015 12:00 AM URNLS DIP STICK/TABLET RGNT AUTO W/O MICROSCOPY Returned 11/14/2015 12:00 AM GENERAL HEALTH PANEL Returned 12/14/2015 12:00 AM URNLS DIP STICK/TABLET REAGENT AUTO MICROSCOPY Returned 02/08/2016 12:00 AM URINALYSIS AUTO W/O SCOPE Returned 02/09/2016 4:24 PM URINALYSIS AUTO W/O SCOPE Reviewed 10/09/2012 12:00 AM DRAIN/INJ JOINT/BURSA W/O US Reviewed 10/09/2012 12:00 AM Kenalog, Per 10 Mg [facility][NOTE 3]#[id number] Reviewed 06/04/2013 12:00 AM Drug Screen (Medicare) [...] 12:00 AM SYNVISC-ONE, Per 1 Mg (6ml) [facility][NOTE 3] [address]-06 Reviewed 05/06/2014 12:00 AM OFFICE/OUTPATIENT VISIT EST Reviewed 06/03/2014 12:00 AM DRAIN/INJ JOINT/BURSA W/O US Reviewed 06/03/2014 12:00 AM SYNVISC-ONE, Per 1 Mg (6ml) [facility][NOTE 3] [id number] Reviewed 08/26/2014 12:00 AM RADIOLOGIC EXAM SACROILIAC JOINTS 3/MORE VIEWS Returned 01/20/2015 12:00 AM DRAIN/INJ JOINT/BURSA W/O US Reviewed 01/20/2015 12:00 AM SYNVISC-ONE, Per 1 Mg (6ml) [facility][NOTE 3] [address]-29 Returned 02/24/2015 12:00 AM DRAIN/INJ JOINT/BURSA W/O US Reviewed 02/24/2015 12:00 AM SYNVISC-ONE, Per 1 Mg (6ml) [facility][NOTE 3] [id number] Returned Results Summary Data and Description Results 04/21/2010 10:16 AM URIC ACID 5.5 mg/dLRA Factor < 10.0 SEDRATE 8.0 mm/hr 08/19/2015 1:09 PM Dialated Eye Exam- Diabetic [...] 3.3 LDL (CALC) 49.0 mg/dLPSA TOTAL 0.060 ng/mLTSH 4.980 uIU/ mLWBC 6.8 RBC 4.30 HGB 13.0 g/dLHCT 40.60 %MCV 94.0 fLMCH 30.20 pgMCHC 32.0 g/ dLRDW SD 46 RDW CV 13.40 %MPV 10.0 fLPLT 204 NRBC# 0.00 NRBC% 0.0 %NEUT 49.10 %% LYMP 35.50 %%MONO 12.50 %%EOS 2.50 %%BASO 0.40 %#NEUT 3.35 #LYMP 2.42 #MONO 0.85 #EOS 0.17 #BASO 0.03 MANUAL DIFF NOT IND 11/14/2015 2:14 PM WBC 10.6 RBC 4.41 [...] /HPFTRICHOMONAS NEGATIVE YEAST NEGATIVE CULT ORDERED YES 02/08/2016 2:30 PM COLOR YELLOW APPEARANCE CLEAR [...] neg WBC Est Ur Ql Strip trace History Of Immunizations Not available. History of Past Illness Name Date of [...] 09/01/2015 Type 1 diabetes mellitus with complications 09/01/2015 Chronic back pain 09/01/2015 Chronic kidney disease, stage 3 (moderate) Osteoarthrosis, lower leg Oct 09 2012 9:26AM [...] Other chronic pain May 09 2016 1:56PM Payers Insurance Name Company Name Plan Name Plan Number Policy Number Policy Group Number Start Date Medicare Part A Medicare [facility] [id number] Saturday, 2001 Medicare Part A Medicare - Lab/Xray [id number] Saturday, December 29, 2001 Medicare Part B Medicare Of [place] [id number] Saturday, December 29, 2001 Medicare Part A Medicare Part A [id number] Saturday, December 29, 2001 History of Encounters Visit Date Visit Type Provider 05/09/2016 Office visit Maribel ROBERTSP 03/07/2016 Office [...] visit Maribel ROBERTSP 09/24/2013 Office visit Maribel GUARDADO 08/27/2013 Office visit Maribel GUARDADO 07/02/2013 Office visit Maribel GUARDADO 06/04/2013 Office visit Maribel GUARDADO 10/09/2012 Office visit Lloyd Oviedo MD 05/08/2010 Office visit Lloyd Oviedo MD 04/21/2010 Office visit Lloyd Oviedo MD
--- OUTSIDE RECORDS SUMMARY | 2018-07-23 10:25 | XMS REPORT ---
Author Author Maribel Vieira [facility] Address [address] [place], [place] [id number] Care Team Providers Care Ballistics Laboratory Gunsmith Name Role Phone Maribel Vieira PCP Elias Malagon Unavailable Unavailable Deborah Linares Unavailable Unavailable Allergies and Adverse Reactions Name Reaction Notes PENICILLINS Plan of Treatment Not available. Medications Active Name Start Date Estimated Completion Date SIG Comments Novolog 100 unit/mL subcutaneous solution inject by subcutaneous route as per insulin sliding scale protocol Nitrostat 0.4 mg sublingual tablet, sublingual place 1 tablet (0.4 mg) by buccal route at the first sign of an attack; no more than 3 tablets are recommended within a 15 minute period. Prevacid 30 mg oral capsule,delayed release(DR/EC) take 1 capsule (30 mg ) by oral route once daily before a meal Reglan 10 mg oral tablet take 1 tablet (10 mg) by oral route 4 times per day 30 minutes before meals and at bedtime Coreg 25 mg oral tablet take 1 tablet (25 mg) by oral route 2 times per day with food aspirin 325 mg oral tablet take 1 tablet (325 mg) by oral route once daily Zetia 10 mg oral tablet take 1 tablet (10 mg) by oral route once daily atorvastatin 80 mg oral tablet take 1 tablet (80 mg) by oral route once daily at bedtime ramipril 10 mg oral capsule take 1 capsule (10 mg) by oral [...] Symbicort 160-4.5 mcg/actuation inhalation HFA aerosol inhaler inhale 2 puffs by inhalation route 2 times per day in the morning and evening cyclobenzaprine 10 mg oral tablet 08/03/2015 TAKE 1 TABLET BY MOUTH EVERY 8 HOURS NEEDED FOR SPASM Novolog 100 unit/mL subcutaneous solution 09/06/2015 INJECT 160 UNITS DAILY DXE11.43. Ambien 5 mg oral tablet 09/14/2015 12/13/2015 take 1 tablet (5 mg) by oral route once daily at bedtime for 30 days Cymbalta 60 mg oral capsule,delayed release(DR/EC) 09/19/2015 03/17/2016 take 1 capsule by oral route 2 times a day for 30 days Ranexa 1,000 mg oral tablet extended release 12 hr 10/03/2015 take 1 tablet (1,000 mg) by oral route 2 times per day Marje furosemide 40 mg oral tablet 10/03/2015 take 1 tablet once daily in the morning with the 20 mg tablet for a 60 mg daily dose Lasix 20 mg oral tablet Take one po q d with the 40 mg tablet for a 60 mg daily dose potassium chloride 10 mEq oral tablet extended release 10/03/2015 Take 2 tablets daily in the morning and 1 tablet in the evening Wellbutrin 100 mg oral tablet 10/03/2015 Take 2 tablets (200 mg) in the morning and 1 tablets (100 mg) in the evening levothyroxine 50 mcg oral tablet 10/03/2015 take 1 tablet (50 mcg) by oral route once daily Percocet 10-325 mg oral tablet 10/03/2015 11/02/2015 take 1 tablet by oral route every 8 hours as needed for 30 days morphine 15 mg oral tablet extended release 10/03/2015 11/02/2015 Take one tablet twice daily at 8 am and 8pm and take two tablets (30 mg) po once daily at 2 pm bupropion HCl 100 mg oral tablet 10/10/2015 TAKE 1 TABLET BY MOUTH THREE TIMES DAILY Name Start Date Expiration Date SIG Comments [...] 3 TIMES PER DAY FOR 30 DAYS risperidone 1 mg oral tablet 08/03/2015 10/02/2015 take 2 tablets by oral route daily [...] 2 CAPSULES BY MOUTH THREE TIMES DAILY Problem List Description Status Onset Congestive Heart [...] diabetes mellitus with complications Active 09/01/2015 Chronic Back Pain Active 09/01/2015 Chronic kidney disease, stage 3 (moderate) Active Vital Signs Date Time BP-Sys(mm[Hg] BP-Ellie(mm[Hg]) HR(bpm) RR(rpm) Temp WT HT HC BMI BSA BMI Percentile O2 Sat(%) 10/03/2015 1:18:00 PM 134 mmHg 78 mmHg [...] Reviewed 09/01/2015 12:00 AM GENERAL HEALTH PANEL Returned 09/01/2015 12:00 AM ASSAY OF PSA TOTAL Returned 09/01/2015 12:00 AM LIPID PANEL Returned 10/09/2012 12:00 AM DRAIN/INJ JOINT/BURSA W/O US Reviewed 10/09/2012 12:00 AM Kenalog, Per 10 Mg [facility]#[id number] Reviewed 06/04/2013 12:00 AM Drug Screen (Medicare) [...] 12:00 AM SYNVISC-ONE, Per 1 Mg (6ml) [facility] [id number] Reviewed 05/06/2014 12:00 AM OFFICE/OUTPATIENT VISIT EST Reviewed 06/03/2014 12:00 AM DRAIN/INJ JOINT/BURSA W/O US Reviewed 06/03/2014 12:00 AM SYNVISC-ONE, Per 1 Mg (6ml) [facility] [id number] Reviewed 08/26/2014 12:00 AM RADIOLOGIC EXAM SACROILIAC JOINTS 3/MORE VIEWS Returned 01/20/2015 12:00 AM DRAIN/INJ JOINT/BURSA W/O US Reviewed 01/20/2015 12:00 AM SYNVISC-ONE, Per 1 Mg (6ml) [facility] [id number] Returned 02/24/2015 12:00 AM DRAIN/INJ JOINT/BURSA W/O US Reviewed 02/24/2015 12:00 AM SYNVISC-ONE, Per 1 Mg (6ml) [facility] [id number] Returned Results Summary Data and Description Results 04/21/2010 10:16 AM URIC ACID 5.5 mg/dLSEDRATE 8.0 mm/hr 08/19/2015 1:09 PM Dialated Eye [...] g/dLALBUMIN 3.70 g/dLTOTAL BILI 0.30 mg/dLCALCIUM 8.70 mg/dLeGFR 58 TRIGLYCERIDES 107.0 mg/ dLCHOLESTEROL 101.0 mg/dLHDL 31.0 mg/dLLDL (CALC) 49.0 mg/dLPSA TOTAL 0.060 ng/ mLTSH 4.980 uIU/mLWBC 6.8 RBC 4.30 HGB 13.0 g/dLHCT 40.60 %MCV 94.0 fLMCH 30.20 pgMCHC 32.0 g/dLRDW CV 13.40 %MPV 10.0 fLPLT 204 %NEUT 49.10 %%LYMP 35.50 %% MONO 12.50 %%EOS 2.50 %%BASO 0.40 %#NEUT 3.35 #LYMP 2.42 #MONO 0.85 #EOS 0.17 # BASO 0.03 History Of Immunizations Not available. History of [...] 1 diabetes mellitus with complications 09/01/2015 Chronic Back Pain 09/01/2015 Chronic kidney disease, stage 3 (moderate) [...] 1:18PM Acquired hypothyroidism Oct 03 2015 1:23PM Payers Insurance Name Company Name Plan Name Plan Number Policy Number Policy Group Number Start Date Medicare Part A Medicare Part A [facility] [id number] Saturday, 2001 Medicare Part B Medicare Of [place] [id number] Saturday, 2001 Medicare Part A Medicare Part A [id number] Saturday, 2001 History of Encounters Visit Date Visit Type Provider 10/03/2015 Office visit Maribel GUARDADO 09/06/2015 Laboratory Maribel GUARDADO 08/31/2015 Office visit Maribel Faith Dariel ROBERTSP 08/03/2015 Office visit Maribel Vieira STITCH WELDER 07/06/2015 Office visit Maribel NealCharley Dariel ROBERTSP 06/09/2015 Nurse visit Maribel ValCharley Dariel ROBERTSP 05/17/2015 Office visit Maribel Faith Dariel ROBERTSP 04/25/2015 Office visit Maribel Faith Dariel ROBERTSP 03/28/2015 Office visit Maribel Faith Dariel ROBERTSP 02/24/2015 Office visit Maribel Faith Dariel ROBERTSP 01/20/2015 Office visit Maribel Faith Dariel ROBERTSP 12/23/2014 Office visit Maribel Vieira STITCH WELDER 11/25/2014 Office visit Maribel Vieira STITCH WELDER 10/21/2014 Nurse visit Maribel ValCharley Dariel ROBERTSP 09/29/2014 Office visit Maribel Faith Dariel ROBERTSP 08/26/2014 Office visit Maribel Faith Dariel ROBERTSP 07/29/2014 Nurse visit Maribel ValCharley Dariel ROBERTSP 06/29/2014 Nurse visit Maribel ROBERTSP 06/03/2014 Office visit Maribel ValCharley Dariel ROBERTSP 05/06/2014 Nurse visit Maribel ValCharley Dariel ROBERTSP 04/08/2014 Nurse visit Maribel Faith Dariel ROBERTSP 03/11/2014 Office visit Maribel ValCharley Dariel ROBERTSP 02/11/2014 Office visit Maribel NealCharley Dariel ROBERTSP 01/14/2014 Office visit Maribel ValCharley Dariel ROBERTSP 12/17/2013 Office visit Maribel ValCharley Dariel ROBERTSP 11/19/2013 Office visit Maribel NealCharley Dariel ROBERTSP 10/22/2013 Office visit Maribel ROBERTSP 09/24/2013 Office visit Maribel ROBERTSP 08/27/2013 Office visit Maribel ROBERTSP 07/02/2013 Office visit Maribel ROBERTSP 06/04/2013 Office visit Maribel ROBERTSP 10/09/2012 Office visit Lloyd Oviedo MD 05/08/2010 Office visit Lloyd Oviedo MD 04/21/2010 Office visit Lloyd Oviedo MD
--- OUTSIDE RECORDS SUMMARY | 2018-07-23 10:26 | XMS REPORT ---
Author Author Maribel Vieira [facility] Address [address] [place], [place] [address] Care Team Providers Care Inspector Hot Forgings Name Role Phone Maribel Vieira PCP Elias Malagon Unavailable Unavailable Deborah Linares Unavailable Unavailable Allergies and Adverse Reactions Name Reaction Notes PENICILLINS Plan of Treatment Planned Activity Comments Planned Date Planned Time Plan/Goal Lipid profile 09/06/2015 12:00 AM GENERAL HEALTH PANEL 09/06/2015 12:00 AM PSA TOTAL 09/06/2015 12:00 AM T1DM - insulin pump -current [...] HOURS NEEDED FOR SPASM. FOR 30 DAYS Novolog 100 unit/mL subcutaneous solution 09/06/2015 INJECT 160 UNITS DAILY [facility] [id number] DXE11.43. potassium chloride 10 mEq oral tablet [...] (10 mg) by oral route once daily Ranexa 1,000 mg oral tablet extended release 12 hr 05/10/2016 TAKE 1 TABLET BY MOUTH TWO TIMES A DAY risperidone 1 mg oral tablet 05/10/2016 take 2 tablets by oral route daily for 60 days ramipril 10 mg oral capsule 05/10/2016 take 1 capsule (10 mg) by oral route once daily atorvastatin 80 mg oral tablet 06/05/2016 TAKE 1 TABLET BY MOUTH ONCE A DAY IN THE EVENING Symbicort 160-4.5 mcg/actuation inhalation HFA aerosol inhaler 06/05/2016 INHALE 2 PUFFS TWO TIMES A DAY IN THE MORNING AND IN THE EVENING levothyroxine 50 mcg oral tablet 06/05/2016 TAKE 1 TABLET BY MOUTH ONCE A DAY metoclopramide HCl 10 mg oral tablet 06/05/2016 TAKE 1 TABLET BY MOUTH FOUR TIMES A DAY AFTER MEALS AND AT BEDTIME ProAir HFA 90 mcg/actuation inhalation HFA aerosol inhaler 06/06/2016 inhale 1 - 2 puffs (90 - 180 mcg) by inhalation route every 4-6 hours as needed fluticasone 50 mcg/actuation nasal spray,suspension 06/06/2016 inhale 2 sprays (100 mcg) in each nostril by intranasal route once daily ramipril 10 mg oral capsule 07/30/2016 TAKE 1 CAPSULE BY MOUTH ONCE A DAY Ranexa 1,000 mg oral tablet extended release 12 hr 07/30/2016 TAKE 1 TABLET BY MOUTH TWO TIMES A DAY Protonix 40 mg oral tablet,delayed release (DR/EC) 07/30/2016 take 1 tablet (40 mg) by oral route once daily for 90 days albuterol sulfate 2.5 mg /3 mL (0.083 %) inhalation solution for nebulization 09/28/2016 inhale 3 milliliters (2.5 mg) by nebulization route 4 times per day as needed ProAir HFA 90 mcg/actuation inhalation HFA aerosol inhaler 09/28/2016 inhale 1 - 2 puffs (90 - 180 mcg) by inhalation route every 4-6 hours as needed Tessalon Perles 100 mg oral capsule 10/01/2016 take 1 capsule (100 mg) by oral route 3 times per day as needed for cough Cymbalta 60 mg oral capsule,delayed release(DR/EC) 10/02/2016 03/26/2018 take 1 capsule by oral route 2 times a day for 90 days Coreg 12.5 mg oral tablet 11/16/2016 take 1 tablet (12.5 mg) by oral route 2 times per day with food Per pharmacy, they do BLISTER(BUBBLE) pks, 28 day count. ramipril 10 mg oral capsule 12/12/2016 TAKE 1 CAPSULE BY MOUTH ONCE A DAY Ranexa 1,000 mg oral tablet extended release 12 hr 12/12/2016 TAKE 1 TABLET BY MOUTH TWO TIMES A DAY furosemide 40 mg oral tablet 12/17/2016 12/12/2017 Take 1 tablet (40mg) and 1 (20mg) tablet QD, (60mgs OD). Wrote RX above per Ya at [facility]. carvedilol 12.5 mg oral tablet 01/09/2017 TAKE 1 TABLET (12.5 MG) BY ORAL ROUTE 2 TIMES PER DAY WITH FOOD Ambien 10 mg oral tablet 01/09/2017 04/09/2017 take 1 tablet (10 mg) by oral route once daily at bedtime (for male) for 30 days Percocet 10-325 mg oral tablet 01/16/2017 02/15/2017 take 1 tablet by oral route every [...] oral route once daily for 90 days risperidone 1 mg oral tablet 02/01/2016 04/01/2016 take 2 tablets by oral route daily for 60 days doxycycline monohydrate 100 mg oral tablet 06/06/2016 06/13/2016 take 1 tablet by oral route 2 times a day for 7 days doxycycline monohydrate 100 mg oral tablet 09/26/2016 10/03/2016 take 1 tablet by oral route 2 times a day for 7 days prednisone 20 mg oral tablet 09/28/2016 10/03/2016 take 2 tablets (40 mg) by oral route once daily for 5 days Discontinued Name Start Date Discontinued Date [...] inject 6 milliliters by intra-articular route once Problem List Description Status Onset Congestive Heart [...] HC BMI BSA BMI Percentile O2 Sat(%) 01/16/2017 1:31:00 PM 128 mmHg 70 mmHg 76 bpm 17 rpm 97.6 F 206.5 lbs 76 in 25.14 kg/m2 2.24 m2 97 % 12/19/2016 1:41:00 PM 132 mmHg 70 mmHg 71 bpm 18 rpm 97.7 F 306 lbs 76 in 37.2471 kg/m 2.7281 m 96 % 11/21/2016 1:47:00 PM 142 mmHg 74 mmHg 80 bpm 17 rpm 97.6 F 313.25 lbs 76 in 38.13 kg/m2 2.76 m2 95 % 10/26/2016 10:20:00 AM 134 mmHg 72 mmHg 78 bpm 16 rpm 97.7 F 320.25 lbs 76 in 38.9817 kg/m 2.7909 m 96 % 10/04/2016 2:15:00 PM [...] rpm 96.6 F 316.5 lbs 76 in 38.53 kg/m2 2.77 m2 95 % 06/06/2016 1:46:00 PM 122 mmHg 76 mmHg 75 bpm 16 rpm 96.9 F 313.25 lbs 76 in 38.1296 kg/m 2.7603 m 95 % 05/09/2016 1:53:00 PM 128 mmHg [...] 10/09/2012 12:00 AM Kenalog, Per 10 Mg [facility]#[id number] Reviewed 06/04/2013 12:00 AM Drug Screen (Medicare) [...] 12:00 AM SYNVISC-ONE, Per 1 Mg (6ml) [facility] [id number] Reviewed 05/06/2014 12:00 AM OFFICE/OUTPATIENT VISIT EST Reviewed 06/03/2014 12:00 AM DRAIN/INJ JOINT/BURSA W/O US Reviewed 06/03/2014 12:00 AM SYNVISC-ONE, Per 1 Mg (6ml) [facility] [id number] Reviewed 08/26/2014 12:00 AM RADIOLOGIC EXAM SACROILIAC JOINTS 3/MORE VIEWS Reviewed 01/20/2015 12:00 AM DRAIN/INJ JOINT/BURSA W/O US Reviewed 01/20/2015 12:00 AM SYNVISC-ONE, Per 1 Mg (6ml) [facility] [id number] Reviewed 02/24/2015 12:00 AM DRAIN/INJ JOINT/BURSA W/O US Reviewed 02/24/2015 12:00 AM SYNVISC-ONE, Per 1 Mg (6ml) [facility] [id number] Reviewed Results Summary Date and Description Results 04/21/2010 10:16 AM URIC ACID 5.5 mg/dLRA Factor < 10.0 SEDRATE 8.0 mm/hr 01/13/2013 12:00 AM Pneumonia Shot Yes, but [...] 58 eGFR AA* >60 FERRITIN 94.0 ng/mL 08/01/2016 3:33 PM TRIGLYCERIDES 104.0 mg/dLCHOLESTEROL 110.0 mg/dLHDL 31.0 mg/ dLTOT CHOL/HDL 3.5 LDL (CALC) 58.0 mg/dLGLUCOSE 182.0 mg/dLSODIUM 139.0 mmol/ LPOTASSIUM 4.40 mmol/LCHLORIDE 104.0 mmol/LCO2 26.0 mmol/LBUN 21.0 mg/ dLCREATININE 1.30 mg/dLSGOT/AST 14.0 IU/LSGPT/ALT 19.0 IU/LALK PHOS 70.0 IU/ LTOTAL PROTEIN 7.0 g/dLALBUMIN 4.10 g/dLTOTAL BILI 0.50 mg/dLCALCIUM 9.10 mg/ dLAGE 51 GFR NonAA 58 GFR AA 70 eGFR 58 eGFR AA* >60 12/03/2016 11:23 AM TSH 2.050 uIU/mLWBC 10.9 [...] 86 eGFR >60 mL/min/1.73meGFR AA * >60 History Of Immunizations Name Date Admin Mfg Name Mfg Code Trade Name Lot# Route Inj Vis Given Vis Pub CVX Influenza 05/10/2016 sanofi pasteur PMC Fluzone Quadrivalent [id number] Intramuscular Left Upper Arm 05/10/2016 02/04/2015 141 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/2013 Unknown 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 UNK Unknown 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 Unknown 06/21/2016 07/01/2017 33 History of Past Illness Name Date [...] 1:42PM Chronic coughing Dec 19 2016 1:42PM Payers Insurance Name Company Name Plan Name Plan Number Policy Number Policy Group Number Start Date Medicare RHC Medicare RHC [id number] Saturday, 2001 Medicare Part A Medicare - Lab/Xray [id number] Saturday, December 29, 2001 Medicare Part B Medicare Of [place] [id number] Saturday, December 29, 2001 Medicare Part A Medicare Part A [id number] Saturday, December 29, 2001 History of Encounters Visit Date Visit Type Provider 01/16/2017 Office visit Maribel GUARDADO 12/19/2016 Office visit Maribel GUARDADO 12/03/2016 Laboratory Maribel GUARDADO 11/21/2016 Office visit Maribel GUARDADO 10/26/2016 Office visit Maribel GUARDADO 10/04/2016 Office visit Maribel GUARDADO 09/28/2016 Office visit Maribel GUARDADO 09/26/2016 Office visit Maribel GUARDADO 08/29/2016 Office visit Maribel GUARDADO 08/01/2016 Laboratory Maribel GUARDADO 07/04/2016 Office visit Maribel GUARDADO 06/07/2016 Laboratory Maribel GUARDADO 06/06/2016 Office visit Maribel ROBERTSP 05/09/2016 Office visit Maribel Vianney ROBERTSP 03/07/2016 Office visit Maribel ROBERTSP 02/08/2016 Office visit Maribel ROBERTSP 01/11/2016 Office visit Maribel NealCharley Dariel ROBERTSP 12/14/2015 Office visit Maribel ROBERTSP 11/14/2015 Office visit Maribel ROBERTSP 10/03/2015 Office visit Maribel ROBERTSP 09/06/2015 Laboratory Maribel Vieira RESIDENTIAL MORTGAGE UNDERWRITER 08/31/2015 Office visit Maribel NealCharley Dariel ROBERTSP 08/03/2015 Office visit Maribel ROBERTSP [...]
--- OUTSIDE RECORDS SUMMARY | 2018-07-23 10:27 | XMS REPORT ---
Author Author Maribel Vieira [facility] Address [address] [place], [place] [address] Care Team Providers Care Claims Adjuster Crop Name Role Phone Maribel Vieira PCP Elias [...] 10/09/2012 12:00 AM Kenalog, Per 10 Mg [facility]#[id number] Reviewed 06/04/2013 12:00 AM Drug Screen (Medicare) [...] 12:00 AM SYNVISC-ONE, Per 1 Mg (6ml) [facility] [address]-64 Reviewed 05/06/2014 12:00 AM OFFICE/OUTPATIENT VISIT EST Reviewed 06/03/2014 12:00 AM DRAIN/INJ JOINT/BURSA W/O US Reviewed 06/03/2014 12:00 AM SYNVISC-ONE, Per 1 Mg (6ml) [facility] [address]-76 Reviewed 08/26/2014 12:00 AM RADIOLOGIC EXAM SACROILIAC JOINTS 3/MORE VIEWS Returned 01/20/2015 12:00 AM DRAIN/INJ JOINT/BURSA W/O US Reviewed 01/20/2015 12:00 AM SYNVISC-ONE, Per 1 Mg (6ml) [facility] [address]-07 Returned 02/24/2015 12:00 AM DRAIN/INJ JOINT/BURSA W/O US Reviewed 02/24/2015 12:00 AM SYNVISC-ONE, Per 1 Mg (6ml) [facility] [id number] Returned Results Summary Data and Description Results [...] Date Medicare Part A Medicare Part A [facility] [id number] Saturday, 2001 Medicare Part B Medicare Of [place] [id number] Saturday, 2001 Medicare Part A Medicare Part A [id number] Saturday, 2001 History of Encounters Visit Date Visit Type Provider 10/03/2015 Office visit Maribel GUARDADO 09/06/2015 Laboratory Maribel GUARDADO 08/31/2015 Office visit Maribel Faith Dariel ROBERTSP 08/03/2015 Office visit Maribel Vieira AUDIT MACHINE OPERATOR 07/06/2015 Office visit Maribel NealCharley Dariel ROBERTSP 06/09/2015 Nurse visit Maribel ValCharley Dariel ROBERTSP 05/17/2015 Office visit Maribel Faith Dariel ROBERTSP 04/25/2015 Office visit Maribel Faith Dariel ROBRETSP 03/28/2015 Office visit Maribel Faith Dariel ROBERTSP 02/24/2015 Office visit Maribel Faith Dariel ROBERTSP 01/20/2015 Office visit Maribel Faith Dariel ROBERTSP 12/23/2014 Office visit Maribel Vieira AUDIT MACHINE OPERATOR 11/25/2014 Office visit Maribel Vieira AUDIT MACHINE OPERATOR 10/21/2014 Nurse visit Maribel ValCharley Dariel ROBERTSP [...]
--- NOTE | 2018-07-23 10:28 | NUR ---
Glucose rechecked. Results 71. Pt suspended insulin pump during initial findings of glucose of 50. Dr. melo has given new orders.
--- OUTSIDE RECORDS SUMMARY | 2018-07-23 10:28 | XMS REPORT ---
Author Author Maribel Vieira [facility] Address [address] [place], [place] [address] Care Team Providers Care Baby Registry Sales Consultant Name Role Phone Maribel Vieira PCP Elias [...] each nostril by intranasal route once daily Tessalon Perles 100 mg oral capsule 06/07/2016 take 1 capsule (100 mg) by oral route 3 times per day as needed for cough Ambien 10 mg oral tablet 07/04/2016 10/02/2016 take 1 tablet (10 mg) by oral route once daily at bedtime (for male) for 30 days ramipril 10 mg oral capsule 07/30/2016 TAKE 1 CAPSULE BY MOUTH ONCE A DAY Ranexa 1,000 mg oral tablet extended release 12 hr 07/30/2016 TAKE 1 TABLET BY MOUTH TWO TIMES A DAY Protonix 40 mg oral tablet,delayed release (DR/EC) 07/30/2016 take 1 tablet (40 mg) by oral route once daily for 90 days Percocet 10-325 mg oral tablet 08/01/2016 08/31/2016 take 1 tablet by oral route every [...] 2 times a day for 7 days Discontinued Name Start [...] HC BMI BSA BMI Percentile O2 Sat(%) 07/04/2016 1:22:00 PM 110 mmHg 70 mmHg [...] substance abuse disabeled Did not serve in [employer] Security Disability History of Procedures Date Ordered [...] AUTO W/O SCOPE Reviewed 05/10/2016 12:00 AM [facility] MEDICARE - flu vaccine administration Reviewed 05/10/2016 12:00 AM INFLUENZA VACCINE QUADRIVALENT 3 YRS PLUS IM Reviewed 06/07/2016 12:00 AM COMPLETE CBC W/AUTO DIFF WBC Returned 06/07/2016 12:00 AM COMPREHEN METABOLIC PANEL Returned 06/07/2016 12:00 AM ASSAY OF FERRITIN Returned 06/06/2016 12:00 AM CHEST X-RAY 2VW FRONTAL&LATL Returned 10/09/2012 12:00 AM DRAIN/INJ JOINT/BURSA W/O US Reviewed 10/09/2012 12:00 AM Kenalog, Per 10 Mg [facility]#[id number] Reviewed 06/04/2013 12:00 AM Drug Screen (Medicare) [...] 12:00 AM SYNVISC-ONE, Per 1 Mg (6ml) [facility] [address]-27 Reviewed 05/06/2014 12:00 AM OFFICE/OUTPATIENT VISIT EST Reviewed 06/03/2014 12:00 AM DRAIN/INJ JOINT/BURSA W/O US Reviewed 06/03/2014 12:00 AM SYNVISC-ONE, Per 1 Mg (6ml) [facility] [id number] Reviewed 08/26/2014 12:00 AM RADIOLOGIC EXAM SACROILIAC JOINTS 3/MORE VIEWS Reviewed 01/20/2015 12:00 AM DRAIN/INJ JOINT/BURSA W/O US Reviewed 01/20/2015 12:00 AM SYNVISC-ONE, Per 1 Mg (6ml) [facility] [address]-78 Reviewed 02/24/2015 12:00 AM DRAIN/INJ JOINT/BURSA W/O US Reviewed 02/24/2015 12:00 AM SYNVISC-ONE, Per 1 Mg (6ml) [facility] [address]-75 Reviewed Results Summary Data and Description Results 04/21/2010 [...] 58 eGFR AA* >60 FERRITIN 94.0 ng/mL History Of Immunizations Name Date Admin Mfg Name Mfg Code Trade Name Lot# Route Inj Vis Given Vis Pub CVX Influenza 05/10/2016 sanofi pasteur PMC Fluzone Quadrivalent [id number] Intramuscular Left Upper Arm 05/10/2016 02/04/2015 141 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/2013 Unknown stator connector UNK Unknown 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 Unknown 06/21/2016 07/01/2016 33 History of Past Illness Name Date [...] lumbar region Fe2015 1:55PM Radiculopathy, lumbar region Aug 03 2015 [...] (coronary artery disease) Aug 01 2016 10:14AM Payers Insurance Name Company Name Plan Name Plan Number Policy Number Policy Group Number Start Date Medicare RHC Medicare RHC [id number] Saturday, 2001 Medicare Part A Medicare - Lab/Xray [id number] Saturday, December 29, 2001 Medicare Part B Medicare Of [place] [id number] Saturday, December 29, 2001 Medicare Part A Medicare Part A [id number] Saturday, December 29, 2001 History of Encounters Visit Date Visit Type Provider 08/01/2016 Laboratory Maribel GUARDADO 07/04/2016 Office visit aMribel GUARDADO 06/07/2016 Laboratory Maribel GUARDADO 06/06/2016 Office visit Maribel GUARDADO 05/09/2016 Office visit Maribel GUARDADO 03/07/2016 Office visit Maribel GUARDADO 02/08/2016 Office visit Maribel GUARDADO 01/11/2016 Office visit Maribel GUARDADO 12/14/2015 Office visit Maribel GUARDADO 11/14/2015 Office visit Maribel GUARDADO 10/03/2015 Office visit Maribel GUARDADO 09/06/2015 Laboratory Maribel GUARDADO 08/31/2015 Office visit Maribel GUARDADO 08/03/2015 Office visit Maribel GUARDADO 07/06/2015 Office visit Maribel GUARDADO 06/09/2015 Nurse visit Maribel GUARDADO 05/17/2015 Office visit Maribel GUARDADO 04/25/2015 Office visit Maribel GUARDADO 03/28/2015 Office visit Maribel GUARDADO 02/24/2015 Office visit Maribel GUARDADO 01/20/2015 Office visit Maribel GUARDADO 12/23/2014 Office visit Maribel GUARDADO 11/25/2014 Office visit Maribel GUARDADO 10/21/2014 Nurse visit Maribel GUARDADO 09/29/2014 Office visit Maribel GUARDADO 08/26/2014 Office visit Maribel GUARDADO 07/29/2014 Nurse visit Maribel Vieira [facility] 06/29/2014 Nurse visit Maribel ROBERTSP 06/03/2014 Office visit Maribel ROBERTSP 05/06/2014 Nurse visit Maribel ROBERTSP 04/08/2014 Nurse visit Maribel ValCharley Dariel [...]
--- OUTSIDE RECORDS SUMMARY | 2018-07-23 10:29 | XMS REPORT ---
Author Author Maribel Vieira [facility] Address [address] [place], [place] [id number] Care Team Providers Care Hearing Impaired Itinerant Teacher Name Role Phone Maribel Vieira PCP Allergies and Adverse Reactions Name Reaction Notes PENICILLINS Plan of Treatment Not available. Medications Active Name Start Date Estimated Completion Date SIG Comments Wellbutrin 100 mg oral tablet take 1 tablet (100 mg) by oral route 3 times per day Novolog 100 unit/mL subcutaneous solution inject by subcutaneous route as per insulin sliding scale protocol Ranexa 500 mg oral tablet extended release 12 hr take 1 tablet (500 mg) by oral route 2 times per day Nitrostat 0.4 mg sublingual tablet, sublingual place [...] route 2 times per day with food Cymbalta 60 mg oral capsule,delayed release(DR/EC) take 2 capsules by oral route once daily aspirin 325 mg oral tablet take 1 tablet (325 mg) by oral route once daily Zetia 10 mg oral tablet take 1 tablet (10 mg) by oral route once daily atorvastatin 80 mg oral tablet take 1 tablet (80 mg) by oral route once daily at bedtime ramipril 10 mg oral capsule take 1 capsule (10 mg) by oral route once daily Ambien 5 mg oral tablet take 1 tablet (5 mg) by oral route once daily at bedtime furosemide 40 mg oral tablet take 1 & 1/2 tablet (60 mg) by oral route once daily potassium chloride 20 mEq oral tablet extended release take 1 & 1/2=[30 mg] tablet by oral route QD levothyroxine 25 mcg oral tablet 1 tab daily Neurontin 300 mg oral capsule 10/04/2014 [...] left knee Neurontin 300 mg oral capsule 03/08/2015 TAKE 2 CAPSULES (600 MG) BY ORAL ROUTE 3 TIMES PER DAY FOR 30 DAYS morphine 15 mg oral tablet extended release 04/25/2015 05/25/2015 take 1 tablet (15 mg) by oral route every 12 hours for 30 days Percocet 10-325 mg oral tablet 04/25/2015 05/25/2015 take 1 tablet by oral route every 6 hours as needed for 30 days cyclobenzaprine 10 mg oral tablet 05/10/2015 TAKE 1 TAB BY MOUTH EVERY 8 HOURS NEEDED FOR SPASM. FOR 30 DAYS Name Start Date Expiration Date SIG Comments Neurontin 300 mg oral capsule 03/11/2014 08/08/2014 take 2 capsules (600 mg) by oral route 3 times per day for 30 days cyclobenzaprine 10 mg oral tablet 05/06/2014 11/02/2014 TAKE 1 TAB BY MOUTH EVERY 8 HOURS NEEDED FOR SPASM. for 30 days Discontinued Name Start Date Discontinued Date [...] 12 hours for 30 days dose decreased Problem List Description Status Onset Congestive Heart Failure Active Depression with Anxiety Active Hypertension Active Insomnia Active Arthritis unspecified Active Chronic Obstructive Pulmonary Disease Active GERD Active Chronic Back Pain Active cervical neck pain Active Cervical Radiculopathy Active 01/14/2014 Postlaminectomy syndrome of lumbar region Active 01/14/2014 Radiculopathy, lumbosacral Active 01/14/2014 Sacroiliac joint dysfunction Active 10/06/2014 Radiculopathy, lumbar region Active 04/25/2015 Vital Signs Date Time BP-Sys(mm[Hg] BP-Ellie(mm[Hg]) HR(bpm) RR(rpm) Temp WT HT HC BMI BSA BMI Percentile O2 Sat(%) 04/25/2015 8:13:00 AM 122 mmHg 70 mmHg [...] substance abuse disabeled Did not serve in [employer] recieving [employer] Security Disability History of Procedures Date Ordered Description Order Status 10/09/2012 12:00 AM DRAIN/INJ JOINT/BURSA W/O US Reviewed 10/09/2012 12:00 AM Kenalog, Per [address] [facility]#[id number] Reviewed 06/04/2013 12:00 AM Drug Screen (Medicare) [...] AM SYNVISC-ONE, Per 1 Mg (6ml) [facility] [address]-10 Reviewed 05/06/2014 12:00 AM OFFICE/OUTPATIENT VISIT EST Reviewed 06/03/2014 12:00 AM DRAIN/INJ JOINT/BURSA W/O US Reviewed 06/03/2014 12:00 AM SYNVISC-ONE, Per 1 Mg (6ml) [facility] [id number] Reviewed 08/26/2014 12:00 AM RADIOLOGIC EXAM SACROILIAC JOINTS 3/MORE VIEWS Returned 01/20/2015 12:00 AM DRAIN/INJ JOINT/BURSA W/O US Reviewed 01/20/2015 12:00 AM SYNVISC-ONE, Per 1 Mg (6ml) [facility] [id number] Returned 02/24/2015 12:00 AM DRAIN/INJ JOINT/BURSA W/O US Reviewed 02/24/2015 12:00 AM SYNVISC-ONE, Per 1 Mg (6ml) [facility] [id number] Returned Results Summary Data and Description Results 04/21/2010 10:16 AM URIC ACID 5.5 mg/dLSEDRATE 8.0 mm/hr History Of Immunizations Not available. History of Past Illness Name Date of Onset Comments Arthritis unspecified Angina Arrhythmia Congestive Heart Failure Coronary artery disease Hypertension Myocardial Infarction Depression with Anxiety Diabetes Mellitus, Type II Chronic Obstructive Pulmonary Disease GERD Hypercholesterolemia Hepatitis Insomnia stroke Chronic Back Pain cervical neck pain Cervical Radiculopathy 01/14/2014 Postlaminectomy syndrome of lumbar region 01/14/2014 Radiculopathy, lumbosacral 01/14/2014 Lumbago Apr 21 2010 8:56AM Muscle Spasm Apr 21 2010 8:56AM Lumbago May 08 2010 12:57PM Muscle Spasm May 08 2010 12:57PM Sacroiliac joint dysfunction 10/06/2014 Radiculopathy, lumbar region 04/25/2015 Osteoarthrosis, lower leg Oct 09 2012 9:26AM [...] Radiculopathy, lumbar region Apr 25 2015 8:19AM Payers Insurance Name Company Name Plan Name Plan Number Policy Number Policy Group Number Start Date Medicare Part B Medicare Of [place] [id number] Saturday, 2001 History of Encounters Visit Date Visit Type Provider 04/25/2015 Office visit Maribel GUARDADO 03/28/2015 Office visit Maribel GUARDADO 02/24/2015 Office visit Maribel GUARDADO 01/20/2015 Office visit Maribel GUARDADO 12/23/2014 Office visit Maribel GUARDADO 11/25/2014 Office visit Maribel GUARDADO 10/21/2014 Nurse visit Maribel GUARDADO 09/29/2014 Office visit Maribel GUARDADO 08/26/2014 Office visit Maribel GUARDADO 07/29/2014 Nurse visit Maribel GUARDADO 06/29/2014 Nurse visit Maribel GUARDADO 06/03/2014 Office visit Maribel GUARDADO 05/06/2014 Nurse visit Maribel GUARDADO 04/08/2014 Nurse visit Maribel GUARDADO 03/11/2014 Office visit Maribel GUARDADO 02/11/2014 Office visit Maribel GUARDADO 01/14/2014 Office visit Maribel GUARDADO 12/17/2013 Office visit Maribel GUARDADO 11/19/2013 Office visit Maribel GUARDADO 10/22/2013 Office visit Maribel GUARDADO 09/24/2013 Office visit Maribel GUARDADO 08/27/2013 Office visit Maribel GUARDADO 07/02/2013 Office visit Maribel GUARDADO 06/04/2013 Office visit Maribel GUARDADO 10/09/2012 Office visit Lloyd Oviedo MD 05/08/2010 Office visit Lloyd Oviedo MD 04/21/2010 Office visit Lloyd Oviedo MD
--- OUTSIDE RECORDS SUMMARY | 2018-07-23 10:29 | XMS REPORT ---
Author Author Maribel Vieira [facility] Address [address] [place], [place] [address] Care Team Providers Care Powerhouse Electrician Apprentice Name Role Phone Maribel Vieira PCP Allergies [...] morphine 15 mg oral tablet extended release 03/28/2015 04/27/2015 Take 30 mg in the morning and 15 mg in the evening. Percocet 10-325 mg oral tablet 03/28/2015 04/27/2015 take 1 tablet by oral route every [...] Active 01/14/2014 Sacroiliac joint dysfunction Active 10/06/2014 Vital Signs Date Time BP-Sys(mm[Hg] BP-Ellie(mm[Hg]) HR(bpm) RR(rpm) Temp WT HT HC BMI BSA BMI Percentile O2 Sat(%) 03/28/2015 8:16:00 AM 118 mmHg 78 mmHg [...] 10/09/2012 12:00 AM Kenalog, Per 10 Mg [facility]#[id number] Reviewed 06/04/2013 12:00 AM Drug Screen (Medicare) [...] Per 1 Mg (6ml) [facility] [id number] Reviewed 05/06/2014 12:00 AM OFFICE/OUTPATIENT VISIT EST Reviewed 06/03/2014 12:00 AM DRAIN/INJ JOINT/BURSA W/O US Reviewed 06/03/2014 12:00 AM SYNVISC-ONE, Per 1 Mg (6ml) [facility] [id number] Reviewed 08/26/2014 12:00 AM RADIOLOGIC EXAM SACROILIAC JOINTS 3/MORE VIEWS Returned 01/20/2015 12:00 AM DRAIN/INJ JOINT/BURSA W/O US Reviewed 01/20/2015 12:00 AM SYNVISC-ONE, Per 1 Mg (6ml) [facility] [id number] Returned 02/24/2015 12:00 AM DRAIN/INJ JOINT/BURSA W/O US Reviewed 02/24/2015 12:00 AM SYNVISC-ONE, Per 1 Mg (6ml) [facility] [id number] Returned Results Summary Data and Description Results [...] 08 2010 12:57PM Sacroiliac joint dysfunction 10/06/2014 Osteoarthrosis, lower leg Oct 09 2012 9:26AM [...] 8:22AM Muscle strain Mar 28 2015 8:22AM Payers Insurance Name Company Name Plan Name Plan Number Policy Number Policy Group Number Start Date Medicare Part B Medicare Of [place] [id number] Saturday, 2001 History of Encounters Visit Date Visit Type Provider 03/28/2015 Office visit Maribel GUARDADO 02/24/2015 Office visit Maribel GUARDADO 01/20/2015 Office visit Maribel GUARDADO 12/23/2014 Office visit Maribel ValCharley Dariel ROBERTSP 11/25/2014 Office visit Maribel NealCharley Dariel ROBERTSP 10/21/2014 Nurse visit Maribel ValCharley Dariel ROBERTSP 09/29/2014 Office visit Maribel ValCharley Dariel ROBERTSP 08/26/2014 Office visit Maribel Faith Dariel ROBERTSP 07/29/2014 Nurse visit Maribel ValCharley Dariel ROBERTSP 06/29/2014 Nurse visit Maribel Vianney ROBERTSP 06/03/2014 Office visit Maribel Vianney ROBERTSP 05/06/2014 Nurse visit Maribel Faith Dariel ROBERTSP 04/08/2014 Nurse visit Maribel Faith Dariel ROBERTSP 03/11/2014 Office visit Maribel ValCharley Dariel ROBERTSP 02/11/2014 Office visit Maribel ROBERTSP [...]
[2018-07-23] MEDS ORDERED: D5 1/2 NS 1000 ML IV SOLUTION 1,000 ML IV ONE (10:30)
--- OUTSIDE RECORDS SUMMARY | 2018-07-23 10:31 | XMS REPORT ---
Author Author Maribel Vieira [facility] Address [address] [place], [place] [id number] Care Team Providers Care Art Librarian Name Role Phone Maribel Vieira PCP Elias [...] per day in the morning and evening Coreg 12.5 mg oral tablet 01/11/2016 take [...] oral route once daily for 90 days Ambien 10 mg oral tablet 09/24/2016 11/23/2016 take 1 tablet (10 mg) by oral route once daily at bedtime (for male) for 30 days albuterol sulfate 2.5 mg /3 mL (0.083 %) inhalation solution for nebulization 09/28/2016 inhale 3 milliliters (2.5 mg) by nebulization route 4 times per day as needed ProAir HFA 90 mcg/actuation inhalation HFA aerosol inhaler 09/28/2016 inhale 1 - 2 puffs (90 - 180 mcg) by inhalation route every 4-6 hours as needed Synvisc-One 48 mg/6 mL intra-articular syringe 10/01/2016 inject 6 milliliters by intra-articular route once Tessalon Perles 100 mg oral capsule 10/01/2016 take 1 capsule (100 mg) by oral route 3 times per day as needed for cough Cymbalta 60 mg oral capsule,delayed release(DR/EC) 10/02/2016 03/26/2018 take 1 capsule by oral route 2 times a day for 90 days furosemide 40 mg oral tablet 10/22/2016 10/17/2017 take 1.5 tablets by oral route daily for 90 days Percocet 10-325 mg oral tablet 10/26/2016 11/25/2016 take 1 tablet by oral route every [...] HC BMI BSA BMI Percentile O2 Sat(%) 10/26/2016 10:20:00 AM 134 mmHg 72 mmHg [...] AUTO W/O SCOPE Reviewed 05/10/2016 12:00 AM [facility] MEDICARE - flu vaccine administration Reviewed 05/10/2016 12:00 AM INFLUENZA VACCINE QUADRIVALENT 3 YRS PLUS IM Reviewed 06/07/2016 12:00 AM COMPLETE CBC W/AUTO DIFF WBC Returned 06/07/2016 12:00 AM COMPREHEN METABOLIC PANEL Returned 06/07/2016 12:00 AM ASSAY OF FERRITIN Returned 09/28/2016 12:00 AM CHEST X-RAY 2VW FRONTAL&LATL Reviewed 09/26/2016 12:00 AM UPR/L XTREMITY ART 2 LEVELS Reviewed 10/04/2016 12:00 AM DRAIN/INJ JOINT/BURSA W/O US Reviewed 06/06/2016 12:00 AM CHEST X-RAY 2VW FRONTAL&LATL Returned 10/09/2012 12:00 AM DRAIN/INJ JOINT/BURSA W/O US Reviewed 10/09/2012 12:00 AM Kenalog, Per 10 Mg [facility]#[id number] Reviewed 06/04/2013 12:00 AM Drug Screen (Medicare) [...] Mg (6ml) [facility] [id number] Reviewed 05/06/2014 12:00 AM OFFICE/OUTPATIENT VISIT EST Reviewed 06/03/2014 12:00 AM DRAIN/INJ JOINT/BURSA W/O US Reviewed 06/03/2014 12:00 AM SYNVISC-ONE, Per 1 Mg (6ml) [facility] [id number] Reviewed 08/26/2014 12:00 AM RADIOLOGIC EXAM SACROILIAC JOINTS 3/MORE VIEWS Reviewed 01/20/2015 12:00 AM DRAIN/INJ JOINT/BURSA W/O US Reviewed 01/20/2015 12:00 AM SYNVISC-ONE, Per 1 Mg (6ml) [facility] [id number] Reviewed 02/24/2015 12:00 AM DRAIN/INJ JOINT/BURSA W/O US Reviewed 02/24/2015 12:00 AM SYNVISC-ONE, Per 1 Mg (6ml) [facility] [id number] Reviewed Results Summary Data and Description Results [...] AA 70 eGFR 58 eGFR AA* >60 History Of Immunizations Name Date Admin Mfg Name Mfg Code Trade Name Lot# Route Inj Vis Given Vis Pub CVX Influenza 05/10/2016 sanofi pasteur PMC Fluzone Quadrivalent [id number] Intramuscular Left Upper Arm 05/10/2016 02/04/2015 141 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/2013 Unknown cost report clerk UNK Unknown 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 Unknown 06/21/2016 07/01/2017 [...] 2015 2:01PM Postlaminectomy syndrome of lumbar region Feb 2015 1:55PM Radiculopathy, lumbar region Aug 03 [...] acute exacerbation Jun 06 2016 1: 54PM Payers Insurance Name Company Name Plan Name Plan Number Policy Number Policy Group Number Start Date Medicare [facility] Medicare [facility] [id number] Saturday, 2001 Medicare Part A Medicare - Lab/Xray [id number] Saturday, December 29, 2001 Medicare Part B Medicare Of [place] [id number] Saturday, December 29, 2001 Medicare Part A Medicare Part A [id number] Saturday, December 29, 2001 History of Encounters Visit Date Visit Type Provider 10/26/2016 Office visit Maribel GUARDADO 10/04/2016 Office visit Maribel ROBERTSP 09/28/2016 Office [...] Nurse visit Maribel ROBERTSP 06/03/2014 Office visit aMribel ROBERTSP 05/06/2014 Nurse visit Maribel ROBERTSP 04/08/2014 [...]
--- OUTSIDE RECORDS SUMMARY | 2018-07-23 10:32 | XMS REPORT ---
Author Author Maribel Vieira [facility] Address [address] [place], [place] [id number] Care Team Providers Care Coupon Clerk Name Role Phone Maribel Vieira PCP Elias [...] TABLET BY MOUTH TWO TIMES A DAY ramipril 10 mg oral capsule 05/10/2016 take 1 capsule (10 mg) by oral route once daily Symbicort 160-4.5 mcg/actuation inhalation HFA aerosol inhaler 06/05/2016 INHALE 2 PUFFS TWO TIMES A DAY IN THE MORNING AND IN THE EVENING ProAir HFA 90 mcg/actuation inhalation HFA aerosol [...] inhalation route every 4-6 hours as needed Novolog 100 unit/mL subcutaneous solution 03/28/2017 INJECT 160 UNITS DAILY DXE11.43. ConnXusuch Ultra Test miscellaneous strip 03/28/2017 Use to [...] by topical route 4 times per day venlafaxine 37.5 mg oral tablet extended release 24hr 08/14/2017 take 1 tablet (37.5 mg) by oral route once daily in the morning at the same time each day with food OneTouch Ultra Blue In Vitro Strip 09/02/2017 10/03/2018 USE TO TEST BLOOD SUGAR SIX TIME DAILY OneTouch Ultra Blue In Vitro Strip 09/03/2017 04/22/2018 USE TO TEST BLOOD SUGAR SIX TIME DAILY Lyrica 100 mg oral capsule 09/11/2017 12/10/2017 take 1 capsule (100 mg) by oral route 3 times per day for 30 days Percocet 10-325 mg oral tablet 11/06/2017 12/06/2017 take 1 tablet by oral route every 6 hours as needed for 30 days Toprol XL 25 mg oral tablet extended release 24 hr take 1 tablet (25 mg ) by oral route once daily Name Start Date Expiration Date SIG Comments [...] 1 ( 20mg) tablet QD, (60mgs OD). SeatID Test miscellaneous strip 04/30/2017 04/30/2017 Use to test blood sugar six times daily Aspirin 325 mg Oral Tablet 05/07/2017 take 1 tablet (325 mg) by oral route once daily aspirin 325 mg oral tablet,delayed release (DR/EC) 05/10/2017 07/09/2017 TAKE 1 TABLET BY MOUTH ONCE A DAY risperidone 0.5 mg oral tablet 05/28/2017 WEAN by 0.5 mg weekly - called to [facility] potassium chloride 10 mEq oral tablet [...] HC BMI BSA BMI Percentile O2 Sat(%) 11/06/2017 1:24:00 PM 136 mmHg 78 mmHg [...] substance abuse disabeled Did not serve in [employer] Social Security Disability History of Procedures Date [...] C AB TEST Returned 05/21/2017 12:00 AM [facility] MEDICARE - flu vaccine administration [...] 12:00 AM Kenalog, Per 10 Mg [facility]#[id number] Reviewed 06/04/2013 12:00 AM Drug Screen (Medicare) [...] AM SYNVISC-ONE, Per 1 Mg (6ml) [facility] [id number] Reviewed 05/06/2014 12:00 AM OFFICE/OUTPATIENT VISIT EST Reviewed 06/03/2014 12:00 AM DRAIN/INJ JOINT/BURSA W/O US Reviewed 06/03/2014 12:00 AM SYNVISC-ONE, Per 1 Mg (6ml) [facility] [id number] Reviewed 08/26/2014 12:00 AM RADIOLOGIC EXAM SACROILIAC JOINTS 3/MORE VIEWS Reviewed 01/20/2015 12:00 AM DRAIN/INJ JOINT/BURSA W/O US Reviewed 01/20/2015 12:00 AM SYNVISC-ONE, Per 1 Mg (6ml) [facility] [id number] Reviewed 02/24/2015 12:00 AM DRAIN/INJ JOINT/BURSA W/O US Reviewed 02/24/2015 12:00 AM SYNVISC-ONE, Per 1 Mg (6ml) [facility] [id number] Reviewed Results Summary Date and Description Results [...] Vis Given Vis Pub CVX Influenza 05/10/2016 sanApisphere PMC Fluzone Quadrivalent [id number] Intramuscular Left Upper Arm 05/10/2016 02/04/2015 141 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/2013 Unknown facility technician UNK Unknown 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 Unknown 06/21/2016 07/01/2018 33 Influenza 05/21/2017 sanApisphere PMC FLUZONE [id number] Intramuscular Left Arm 05/22/2017 [...] 11 2014 10:05AM Radiculopathy, lumbosacral Sep 11 2013 9:48AM Postlaminectomy syndrome of lumbar region Sep 2013 9:48AM Cervical Radiculopathy Sep 11 2013 9:48AM Pain in joint; Knee Left Sep 11 2013 9:48AM Right Knee Pain Sep 11 2013 9:48AM Right Osteoarthritis, knee Worsening Sep 11 2013 11:45AM Moderate Right Pain, knee Sep [...] neuropathy, unspecified Nov 06 2017 1: 29PM Payers Insurance Name Company Name Plan Name Plan Number Policy Number Policy Group Number Start Date Medicare RHC Medicare RHC [id number] Saturday, 2001 Medicare Part A Medicare - Lab/Xray [id number] Saturday, December 29, 2001 Medicare Part B Medicare Of [place] [id number] Saturday, December 29, 2001 Medicare Part A Medicare Part A [id number] Saturday, December 29, 2001 History of Encounters Visit Date Visit Type Provider 11/06/2017 Office visit Maribel GUARDADO 10/09/2017 Office visit Maribel GUARDADO 09/26/2017 Hospital Rosendo Marina MD 09/11/2017 Office visit Maribel GUARDADO 08/14/2017 Office visit Maribel GUARDADO 08/07/2017 Office visit Maribel GUARDADO 07/24/2017 Laboratory Maribel GUARDADO 07/17/2017 Office visit Maribel GUARDADO 06/19/2017 Office visit Maribel GUARDADO 06/05/2017 Office visit Maribel GUARDADO 05/28/2017 Office visit Maribel GUARDADO 05/21/2017 Office visit Mraibel GUARDADO 02/20/2017 Office visit Maribel GUARDADO 01/16/2017 [...] visit Maribel GUARDADO 03/07/2016 Office visit Maribel M. Dariel ROBERTSP 02/08/2016 Office visit Maribel ROBERTSP 01/11/2016 Office visit Maribel ROBERTSP 12/14/2015 Office visit Maribel ValCharley Dariel ROBERTSP 11/14/2015 Office visit Maribel ValCharley Dariel ROBERTSP 10/03/2015 Office visit Maribel ROBERTSP 09/06/2015 Laboratory Maribel Vieira DIGITAL DIRECTOR 08/31/2015 Office visit Maribel ROBERTSP 08/03/2015 Office [...] visit Maribel ROBERTSP 06/04/2013 Office visit Maribel GUARDADO 10/09/2012 Office visit Lloyd Oviedo MD 05/08/2010 Office visit Lloyd Oviedo MD 04/21/2010 Office visit Lloyd Oviedo MD
--- OUTSIDE RECORDS SUMMARY | 2018-07-23 10:34 | XMS REPORT ---
Author Author Maribel Vieira [facility] Address [address] [place], [place] [address] Care Team Providers Care Planning Advisor Name Role Phone Maribel Vieira PCP [...] subcutaneous solution 09/06/2015 INJECT 160 UNITS DAILY [facility] [id number] DXE11.43. potassium chloride 10 mEq oral tablet [...] by oral route daily for 90 days Ambien 10 mg oral tablet 11/15/2016 12/15/2016 take 1 tablet (10 mg) by oral route once daily at bedtime (for male) for 30 days Coreg 12.5 mg oral tablet 11/16/2016 take 1 tablet (12.5 mg) by oral route 2 times per day with food Per pharmacy, they do BLISTER(BUBBLE) pks, 28 day count. Percocet 10-325 mg oral tablet 11/21/2016 12/21/2016 take 1 tablet by oral route every [...] HC BMI BSA BMI Percentile O2 Sat(%) 11/21/2016 1:47:00 PM 142 mmHg 74 mmHg [...] AUTO W/O SCOPE Reviewed 05/10/2016 12:00 AM [facility] MEDICARE - flu vaccine administration Reviewed [...] 12:00 AM CHEST X-RAY 2VW FRONTAL&LATL Reviewed 10/09/2012 12:00 AM DRAIN/INJ JOINT/BURSA W/O US Reviewed 10/09/2012 12:00 AM Kenalog, Per 10 Mg [facility]#[id number] Reviewed 06/04/2013 12:00 AM Drug Screen (Medicare) [...] AM SYNVISC-ONE, Per 1 Mg (6ml) [facility] [id number] Reviewed 05/06/2014 12:00 AM OFFICE/OUTPATIENT VISIT EST Reviewed 06/03/2014 12:00 AM DRAIN/INJ JOINT/BURSA W/O US Reviewed 06/03/2014 12:00 AM SYNVISC-ONE, Per 1 Mg (6ml) [facility] [id number] Reviewed 08/26/2014 12:00 AM RADIOLOGIC EXAM SACROILIAC JOINTS 3/MORE VIEWS Reviewed 01/20/2015 12:00 AM DRAIN/INJ JOINT/BURSA W/O US Reviewed 01/20/2015 12:00 AM SYNVISC-ONE, Per 1 Mg (6ml) [facility] [id number] Reviewed 02/24/2015 12:00 AM DRAIN/INJ JOINT/BURSA W/O US Reviewed 02/24/2015 12:00 AM SYNVISC-ONE, Per 1 Mg (6ml) [facility] [id number] Reviewed Results Summary Date and Description Results [...] Influenza 05/10/2016 sanofi pasteur PMC Fluzone Quadrivalent [id number] Intramuscular Left Upper Arm 05/10/2016 02/04/2015 141 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/2013 Unknown fitness assistant UNK Unknown 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 Unknown 06/21/2016 07/01/2017 [...] of lumbar region Nov 21 2016 1:51PM Payers Insurance Name Company Name Plan Name Plan Number Policy Number Policy Group Number Start Date Medicare RHC Medicare RHC [id number] Saturday, 2001 Medicare Part A Medicare - Lab/Xray [id number] Saturday, December 29, 2001 Medicare Part B Medicare Of [place] [id number] Saturday, December 29, 2001 Medicare Part A Medicare Part A [id number] Saturday, December 29, 2001 History of Encounters Visit Date Visit Type Provider 11/21/2016 Office visit Maribel GUARDADO 10/26/2016 Office visit Maribel GUARDADO 10/04/2016 Office visit Maribel GUARDADO 09/28/2016 Office visit Maribel GUARDADO 09/26/2016 Office visit Maribel GUARDADO 08/29/2016 Office visit Maribel GUARDADO 08/01/2016 Laboratory Maribel GUARDADO 07/04/2016 Office visit Maribel GUARDADO 06/07/2016 Laboratory Maribel GUARDADO 06/06/2016 Office visit Maribel GUARDADO 05/09/2016 Office visit Maribel GUARDADO 03/07/2016 Office visit Maribel GUARDADO 02/08/2016 Office visit Maribel GUARDAOD 01/11/2016 Office visit Maribel GUARDADO 12/14/2015 Office visit Maribel GUARDADO 11/14/2015 Office visit Maribel GUARDADO 10/03/2015 Office visit Maribel GUARDADO 09/06/2015 Laboratory Maribel GUARDADO 08/31/2015 Office visit Maribel GUADRADO 08/03/2015 Office visit Maribel GUARDADO 07/06/2015 Office visit Maribel GUARDADO 06/09/2015 Nurse visit Maribel GUARDADO 05/17/2015 Office visit Maribel GUARDADO 04/25/2015 Office visit Maribel GUARDADO 03/28/2015 Office visit Maribel GUARDADO 02/24/2015 Office visit Maribel GUARDADO 01/20/2015 Office visit Maribel ROBERTSP 12/23/2014 Office visit Maribel Vianney ROBERTSP 11/25/2014 Office visit Maribel ROBERTSP 10/21/2014 Nurse visit Maribel ROBERTSP 09/29/2014 Office visit Maribel ROBERTSP 08/26/2014 Office visit Maribel NealCharley Dariel ROBERTSP 07/29/2014 Nurse visit Maribel ROBERTSP 06/29/2014 Nurse visit Maribel ROBERTSP 06/03/2014 Office visit Maribel ROBERTSP 05/06/2014 Nurse visit Maribel ROBERTSP 04/08/2014 Nurse visit Maribel ValCharley Dariel ROBERTSP 03/11/2014 Office visit Maribel ROBERTSP 02/11/2014 Office visit Maribel ROBERTSP 01/14/2014 Office visit Maribel ROBERTSP 12/17/2013 Office visit Marbiel ROBERTSP 11/19/2013 Office visit Maribel ROBERTSP 10/22/2013 Office visit Maribel ROBERTSP 09/24/2013 Office visit Maribel ROBERTSP 08/27/2013 Office visit Maribel ROBERTSP 07/02/2013 Office visit Maribel ROBERTSP 06/04/2013 Office visit Maribel ROBERTSP 10/09/2012 Office visit Lloyd Oviedo MD 05/08/2010 Office visit Lloyd Oviedo MD 04/21/2010 Office visit Lloyd Oviedo MD
--- OUTSIDE RECORDS SUMMARY | 2018-07-23 10:35 | XMS REPORT ---
Author Author Maribel Vieira [facility] Address [address] [place], [place] [id number] Care Team Providers Care Barrel Bander Name Role Phone Maribel Vieira PCP Elias Malagon Unavailable Unavailable Deborah Linares Unavailable Unavailable Allergies and Adverse Reactions Name Reaction Notes PENICILLINS Plan of Treatment Planned Activity Comments Planned Date Planned Time Plan/Goal LIPID PANEL 09/06/2015 12:00 AM GENERAL HEALTH PANEL 09/06/2015 12:00 AM ASSAY OF PSA TOTAL 09/06/2015 12:00 AM Medications Active [...] solution 09/06/2015 INJECT 160 UNITS DAILY DXE11.43. Ranexa 1,000 mg oral tablet extended release 12 hr 10/03/2015 take 1 tablet (1,000 mg) by oral route 2 times per day Ranjith potassium chloride 10 mEq oral tablet extended [...] oral route daily for 90 days Ambien 5 mg oral tablet 12/07/2015 03/06/2016 take 1 tablet (5 mg) by oral route once daily at bedtime for 30 days Coreg 12.5 mg oral tablet 01/11/2016 take 1 tablet (12.5 mg) by oral route 2 times per day with food Percocet 10-325 mg oral tablet 01/11/2016 02/10/2016 take 1 tablet by oral route every 6 hours as needed for 30 days morphine 15 mg oral tablet extended release 01/11/2016 02/10/2016 take 1 tablet by oral route daily for 30 days Name Start Date Expiration [...] by oral route daily for 60 days duloxetine 60 mg oral capsule,delayed release(DR/EC) 10/28/2015 TAKE 1 CAPSULE (60 MG) BY MOUTH 2 TIMES DAILY PATIENT NEEDS TO ESTABLISH WITH NEW PCP BEFORE NEXT REFILL. (06/16/15). Discontinued Name Start Date Discontinued Date SIG [...] daily before a meal for 90 days Problem List Description Status Onset Congestive [...] HC BMI BSA BMI Percentile O2 Sat(%) 01/11/2016 1:32:00 PM 132 mmHg 58 mmHg [...] URNLS DIP STICK/TABLET REAGENT AUTO MICROSCOPY Returned 10/09/2012 12:00 AM DRAIN/INJ JOINT/BURSA W/O US Reviewed 10/09/2012 12:00 AM Kenalog, Per 10 Mg [facility]#5207-0569-80 Reviewed 06/04/2013 12:00 AM Drug Screen (Medicare) [...] 12:00 AM SYNVISC-ONE, Per 1 Mg (6ml) [facility] [address]-55 Reviewed 05/06/2014 12:00 AM OFFICE/OUTPATIENT VISIT EST Reviewed 06/03/2014 12:00 AM DRAIN/INJ JOINT/BURSA W/O US Reviewed 06/03/2014 12:00 AM SYNVISC-ONE, Per 1 Mg (6ml) [facility] [address]-94 Reviewed 08/26/2014 12:00 AM RADIOLOGIC EXAM SACROILIAC JOINTS 3/MORE VIEWS Returned 01/20/2015 12:00 AM DRAIN/INJ JOINT/BURSA W/O US Reviewed 01/20/2015 12:00 AM SYNVISC-ONE, Per 1 Mg (6ml) [facility] [id number] Returned 02/24/2015 12:00 AM DRAIN/INJ JOINT/BURSA W/O US Reviewed 02/24/2015 12:00 AM SYNVISC-ONE, Per 1 Mg (6ml) [facility] [id number] Returned Results Summary Data and Description Results [...] #MONO 0.85 #EOS 0.17 # BASO 0.03 11/14/2015 2:14 PM WBC 10.6 RBC 4.41 HGB 13.50 g/dLHCT 41.90 %MCV 95.0 fLMCH 30.60 pgMCHC 32.20 g/dLRDW CV 12.80 %MPV 9.80 fLPLT 240 %NEUT 60.90 %%LYMP 26.40 %%MONO 9.30 %%EOS 2.20 %%BASO 0.80 %#NEUT 6.44 #LYMP 2.78 #MONO 0.98 #EOS 0.23 #BASO 0.08 COLOR YELLOW APPEARANCE CLEAR SPEC GRAV 1.020 pH 5.0 PROTEIN NEGATIVE GLUCOSE NEGATIVE mg/dLKETONE NEGATIVE BILIRUBIN NEGATIVE BLOOD TRACE- INTACT NITRITE NEGATIVE LEUK SCREEN TRACE CASTS/LPF NEGATIVE /LPFCRYSTALS NEGATIVE MUCOUS THRDS NEGATIVE BACTERIA NEGATIVE EPITH CELLS NEGATIVE / HPFTRICHOMONAS NEGATIVE YEAST NEGATIVE GLUCOSE 162.0 mg/dLSODIUM 138.0 mmol/ LPOTASSIUM 4.40 mmol/LCHLORIDE 103.0 mmol/LCO2 26.0 mmol/LBUN 22.0 mg/ dLCREATININE 1.10 mg/dLSGOT/AST 14.0 IU/LSGPT/ALT 18.0 IU/LALK PHOS 80.0 IU/ LTOTAL PROTEIN 6.80 g/dLALBUMIN 4.30 g/dLTOTAL BILI 0.40 mg/dLCALCIUM 9.10 mg/ dLeGFR >60 mL/min/1.73mTSH 2.810 uIU/mL 12/14/2015 1:57 PM COLOR YELLOW APPEARANCE CLEAR SPEC GRAV 1.020 pH 5.0 PROTEIN NEGATIVE GLUCOSE NEGATIVE mg/dLKETONE NEGATIVE BILIRUBIN NEGATIVE BLOOD TRACE-INTACT NITRITE NEGATIVE LEUK SCREEN SMALL CASTS/LPF NEGATIVE /LPFCRYSTALS NEGATIVE MUCOUS THRDS NEGATIVE BACTERIA NEGATIVE EPITH CELLS NEGATIVE / HPFTRICHOMONAS NEGATIVE YEAST NEGATIVE History Of Immunizations Not available. History of [...] Chronic Back Pain Jan 11 2016 1:33PM Payers Insurance Name Company Name Plan Name Plan Number Policy Number Policy Group Number Start Date Medicare Part A Medicare [facility] [id number] Saturday, 2001 Medicare Part A Medicare - Lab/Xray [id number] Saturday, December 29, 2001 Medicare Part B Medicare Of [place] [id number] Saturday, December 29, 2001 Medicare Part A Medicare Part A [id number] Saturday, December 29, 2001 History of Encounters Visit Date Visit Type Provider 01/11/2016 Office visit Maribel GUARDADO 12/14/2015 Office visit Maribel Faith Dariel ROBERTSP 11/14/2015 Office visit Maribel Faith Dariel ROBERTSP 10/03/2015 Office visit Maribel Faith Dariel ROBERTSP 09/06/2015 Laboratory Maribel Faith Dariel HOMEMAKING REHABILITATION CONSULTANT 08/31/2015 Office visit Maribel Vieira HOMEMAKING REHABILITATION CONSULTANT 08/03/2015 Office visit Maribel Vieira HOMEMAKING REHABILITATION CONSULTANT 07/06/2015 Office visit Maribel Faith Dariel ROBERTSP 06/09/2015 Nurse visit Maribel Faith Dariel ROBERTSP 05/17/2015 Office visit Maribel Faith Dariel HOMEMAKING REHABILITATION CONSULTANT 04/25/2015 Office visit Maribel Vieira HOMEMAKING REHABILITATION CONSULTANT 03/28/2015 Office visit Maribel Vieira HOMEMAKING REHABILITATION CONSULTANT 02/24/2015 Office visit Maribel Faith Dariel ROBERTSP 01/20/2015 Office visit Maribel Faith Dariel ROBERTSP 12/23/2014 Office visit Maribel Vieira HOMEMAKING REHABILITATION CONSULTANT 11/25/2014 Office visit Maribel Faith Dariel ROBERTSP 10/21/2014 Nurse visit Maribel ValCharley Dariel ROBERTSP 09/29/2014 Office visit Maribel Faith Dariel ROBERTSP 08/26/2014 Office visit Maribel Faith Dariel ROBERTSP 07/29/2014 Nurse visit Maribel Faith Dariel ROBERTSP 06/29/2014 Nurse visit Maribel Faith Dariel ROBERTSP 06/03/2014 Office visit Maribel Faith Dariel ROBERTSP 05/06/2014 Nurse visit Maribel Faith Dariel ROBERTSP 04/08/2014 Nurse visit Maribel Vieira HOMEMAKING REHABILITATION CONSULTANT 03/11/2014 Office visit Maribel Faith Dariel ROBERTSP [...]
--- OUTSIDE RECORDS SUMMARY | 2018-07-23 10:36 | XMS REPORT ---
Author Author Maribel Vieira [facility] Address [address] [place], [place] [id number] Care Team Providers Care Driver Starting Gate Name Role Phone Maribel Vieira PCP Elias [...] AUTO DIFF (RFLX MAN DIFF IF IND). 07/24/2017 12:00 AM COMPREHENSIVE METABOLIC PANEL 07/24/2017 12:00 AM TSH 07/24/2017 12:00 AM T1DM - insulin pump [...] inhalation route every 4-6 hours as needed Coreg 12.5 mg oral tablet 11/16/2016 take 1 tablet (12.5 mg) by oral route 2 times per day with food Per pharmacy, they do BLISTER(BUBBLE) pks, 28 day count. Novolog 100 unit/mL subcutaneous solution 03/28/2017 INJECT 160 UNITS DAILY DXE11.43. [employer] Ultra Test miscellaneous strip 03/28/2017 Use to test blood sugar six times daily furosemide 40 mg oral tablet 04/08/2017 08/06/2017 Take 1 tablet (40mg) and 1 ( 20mg) tablet QD, (60mgs OD). bupropion HCl 100 mg oral tablet 04/08/2017 TAKE 1 TABLET BY MOUTH THREE TIMES DAILY Lyrica 50 mg oral capsule 06/19/2017 08/18/2017 take 1 capsule (50 mg) by oral route 3 times per day for 30 days Ambien 10 mg oral tablet 06/26/2017 take 1 tablet (10 mg) by oral route once daily at bedtime (for male) atorvastatin 80 mg oral tablet 06/26/2017 TAKE 1 TABLET BY MOUTH ONCE A DAY IN THE EVENING Cymbalta 30 mg oral capsule,delayed release(/EC) 06/26/2017 take 2 capsules (60 mg) by oral route once daily and taper as instructed metoclopramide HCl 10 mg oral tablet 06/27/2017 09/19/2017 TAKE 1 TABLET BY MOUTH FOUR TIMES A DAY AFTER MEALS AND AT BEDTIME levothyroxine 50 mcg oral tablet 06/27/2017 09/19/2017 TAKE 1 TABLET BY MOUTH ONCE A DAY Ranexa 1,000 mg oral tablet extended release 12 hr 06/28/2017 12/13/2017 TAKE 1 TABLET BY MOUTH TWO TIMES A DAY Percocet 10-325 mg oral tablet 07/17/2017 08/16/2017 take 1 tablet by oral route every [...] FOR SPASM duloxetine 60 mg oral capsule,delayed release(/EC) 10/28/2015 TAKE 1 CAPSULE (60 MG) BY [...] oral route once daily for 5 days Tessalon Perles 100 mg oral capsule 10/01/2016 take 1 capsule (100 mg) by oral route 3 times per day as needed for cough OneTouch Ultra Test miscellaneous strip 04/30/2017 04/30/2017 Use to test blood sugar six times daily Aspirin 325 mg Oral Tablet 05/07/2017 take 1 tablet (325 mg) by oral route once daily aspirin 325 mg oral tablet,delayed release (DR/EC) 05/10/2017 07/09/2017 TAKE 1 TABLET BY MOUTH ONCE A DAY risperidone 0.5 mg oral tablet 05/28/2017 WEAN by 0.5 mg weekly - called to [facility] potassium chloride 10 mEq oral tablet extended release 05/28/2017 05/28/2017 Take 2 tablets daily in the morning and 1 tablet in the evening doxycycline hyclate 100 mg oral capsule 07/03/2017 take 1 capsule by oral route 2 times a day for 7 days carvedilol 12.5 mg oral tablet 07/23/2017 07/23/2017 TAKE 1 TABLET (12.5 MG) BY ORAL ROUTE 2 TIMES PER DAY WITH FOOD Discontinued Name Start Date Discontinued Date SIG [...] 1 CAPSULE BY MOUTH ONCE A DAY ramipril 10 mg oral capsule 12/12/2016 01/27/2017 [...] BY MOUTH ONCE A DAY AT BEDTIME Problem List Description Status Onset Congestive Heart [...] HC BMI BSA BMI Percentile O2 Sat(%) 07/17/2017 1:21:00 PM 128 mmHg 72 mmHg 78 bpm 17 rpm 97.8 F 316.75 lbs 76 in 38.56 kg/m2 2.78 m2 93 % 06/19/2017 1:45:00 PM 132 mmHg 68 mmHg 77 bpm 20 rpm 69.8 F 310.25 lbs 76 in 37.7644 kg/m 2.747 m 95 % 06/05/2017 2:51:00 PM 128 mmHg 82 mmHg 73 bpm 18 rpm 97.2 F 314.75 lbs 76 in 38.31 kg/m2 2.77 m2 96 % 05/28/2017 1:49:00 PM 130 mmHg 76 mmHg 72 bpm 18 rpm 97.2 F 315.5 lbs 76 in 38.4035 kg/m 2.7702 m 95 % 05/21/2017 1:36:00 PM 129 mmHg 70 mmHg 62 bpm 16 rpm 97.2 F 319.75 lbs 76 in 38.92 kg/m2 2.79 m2 100 % 02/20/2017 1:32:00 PM 130 mmHg 76 mmHg 72 bpm 17 rpm 97.7 F 312.75 lbs 76 in 38.0687 kg/m 2.7581 m 97 % 01/16/2017 1:31:00 PM [...] AUTO W/O SCOPE Reviewed 05/10/2016 12:00 AM [facility] MEDICARE - flu vaccine administration Reviewed 05/10/2016 [...] C AB TEST Returned 05/21/2017 12:00 AM [facility] MEDICARE - flu vaccine administration Reviewed 05/21/2017 12:00 AM INFLUENZA VAC 4 VALENT PRSRV FREE 3 YRS PLUS IM Reviewed 07/24/2017 12:00 AM COLLECTION VENOUS BLOOD VENIPUNCTURE Reviewed 10/09/2012 12:00 AM DRAIN/INJ JOINT/BURSA W/O US Reviewed 10/09/2012 12:00 AM Kenalog, Per 10 Mg [facility]#[id number] Reviewed 06/04/2013 12:00 AM Drug Screen (Medicare) [...] 12:00 AM SYNVISC-ONE, Per 1 Mg (6ml) [facility] [id number] Reviewed 05/06/2014 12:00 AM OFFICE/OUTPATIENT VISIT EST Reviewed 06/03/2014 12:00 AM DRAIN/INJ JOINT/BURSA W/O US Reviewed 06/03/2014 12:00 AM SYNVISC-ONE, Per 1 Mg (6ml) [facility] [id number] Reviewed 08/26/2014 12:00 AM RADIOLOGIC EXAM SACROILIAC JOINTS 3/MORE VIEWS Reviewed 01/20/2015 12:00 AM DRAIN/INJ JOINT/BURSA W/O US Reviewed 01/20/2015 12:00 AM SYNVISC-ONE, Per 1 Mg (6ml) [facility] [id number] Reviewed 02/24/2015 12:00 AM DRAIN/INJ JOINT/BURSA W/O US Reviewed 02/24/2015 12:00 AM SYNVISC-ONE, Per 1 Mg (6ml) [facility] [id number] Reviewed Results Summary Date and Description Results 09/06/2015 8:10 AM GLUCOSE 261.0 mg/dLSODIUM 136.0 [...] neg WBC Est Ur Ql Strip trace 06/07/2016 9:54 AM WBC 11.4 RBC 4.73 [...] Vis Given Vis Pub CVX Influenza 05/10/2016 sanSeniorSource pasteur [facility] Fluzone Quadrivalent [id number] Intramuscular Left Upper Arm 05/10/2016 02/04/2015 141 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 Unknown 06/21/2016 07/01/2017 33 Influenza 05/21/2017 sanofi pasteur PMC Fluzone [id number] Intramuscular Left Arm 05/22/2017 01/24/2011 158 [...] 2014 11:45AM Moderate Right Pain, knee Sep 11 [...] stage 3 (moderate) Jul 24 2017 10:45AM Payers Insurance Name Company Name Plan Name Plan Number Policy Number Policy Group Number Start Date Medicare RHC Medicare RHC [id number] Saturday, 2001 Medicare Part A Medicare - Lab/Xray [id number] Saturday, December 29, 2001 Medicare Part B Medicare Of [place] [id number] Saturday, December 29, 2001 Medicare Part A Medicare Part A [id number] Saturday, December 29, 2001 History of Encounters Visit Date Visit Type Provider 07/24/2017 Laboratory Maribel GUARDADO 07/17/2017 Office visit Maribel GUARDADO 06/19/2017 Office visit Maribel GUARDADO 06/05/2017 Office visit Maribel GUARDADO 05/28/2017 Office visit Maribel GUARDADO 05/21/2017 Office visit Maribel Vieira SELF PROPELLED HOT MIX ROLLER OPERATOR 02/20/2017 Office visit Maribel Vieira SELF PROPELLED HOT MIX ROLLER OPERATOR 01/16/2017 Office visit Maribel M. Dariel SELF PROPELLED HOT MIX ROLLER OPERATOR 12/19/2016 Office visit Maribel Faith Dariel SELF PROPELLED HOT MIX ROLLER OPERATOR 12/03/2016 Laboratory Maribel Vieira SELF PROPELLED HOT MIX ROLLER OPERATOR 11/21/2016 Office visit Maribel Vieira SELF PROPELLED HOT MIX ROLLER OPERATOR 10/26/2016 Office visit Maribel ValCharley Dariel ROBERTSP 10/04/2016 Office visit Maribel NealCharley Dariel SELF PROPELLED HOT MIX ROLLER OPERATOR 09/28/2016 Office visit Maribel M. Dariel SELF PROPELLED HOT MIX ROLLER OPERATOR 09/26/2016 Office visit Maribel Vieira SELF PROPELLED HOT MIX ROLLER OPERATOR 08/29/2016 Office visit Maribel Vieira SELF PROPELLED HOT MIX ROLLER OPERATOR 08/01/2016 Laboratory Maribel M. Dariel SELF PROPELLED HOT MIX ROLLER OPERATOR 07/04/2016 Office visit Maribel M. Dariel ROBERTSP 06/07/2016 Laboratory Maribel Vieira SELF PROPELLED HOT MIX ROLLER OPERATOR 06/06/2016 Office visit Maribel Faith Dariel ROBERTSP 05/09/2016 Office visit Maribel ValCharley Dariel ROBERTSP 03/07/2016 Office visit Maribel ROBERTSP 02/08/2016 Office visit Maribel ROBERTSP 01/11/2016 Office visit Maribel M. Dariel ROBERTSP 12/14/2015 Office visit Maribel M. Dariel ROBERTSP 11/14/2015 Office visit Maribel Vianney ROBERSTP 10/03/2015 Office visit Maribel Vianney ROBERTSP 09/06/2015 Laboratory Maribel Vieira SELF PROPELLED HOT MIX ROLLER OPERATOR 08/31/2015 Office visit Maribel Faith Dariel ROBERTSP 08/03/2015 Office visit Maribel ROBERTSP 07/06/2015 Office visit Maribel Vieira SELF PROPELLED HOT MIX ROLLER OPERATOR 06/09/2015 Nurse visit Maribel Vieira SELF PROPELLED HOT MIX ROLLER OPERATOR 05/17/2015 Office visit Maribel ROBERTSP 04/25/2015 Office [...]
--- OUTSIDE RECORDS SUMMARY | 2018-07-23 10:38 | XMS REPORT ---
Author Author Maribel Vieira [facility] Address [address] [place], [place] [id number] Care Team Providers Care Director Of Research And Development Name Role Phone Maribel Vieira PCP Elias Malagon Unavailable Unavailable Deborah Linares Unavailable Unavailable Allergies and Adverse Reactions Name Reaction Notes PENICILLINS Plan of Treatment Planned Activity Comments Planned Date Planned Time Plan/Goal Lipid profile 09/06/2015 12:00 AM GENERAL HEALTH PANEL 09/06/2015 12:00 AM PSA TOTAL 09/06/2015 12:00 AM TESTOSTERONE FREE & TOTAL 05/21/2017 12:00 AM Hepatitis C virus (HCV) antibody assay 05/21/2017 12:00 AM Flu vaccine 3 yrs & older, Quadrivalent, Preservative-free (single-dose syringe ) - [facility] Medicare 05/21/2017 12:00 AM T1DM - insulin pump -current [...] 30 minutes before meals and at bedtime Zetia 10 mg oral tablet take 1 [...] inhalation route every 4-6 hours as needed Leandra Perles 100 mg oral capsule 10/01/2016 take [...] they do BLISTER(BUBBLE) pks, 28 day count. potassium chloride 10 mEq oral tablet extended release 02/05/2017 Take 2 tablets daily in the morning and 1 tablet in the evening Ranexa 1,000 mg oral tablet extended release 12 hr 03/06/2017 06/26/2017 TAKE 1 TABLET BY MOUTH TWO TIMES A DAY Novolog 100 unit/mL subcutaneous solution 03/28/2017 INJECT 160 UNITS DAILY DXE11.43. [employer] Ultra Test miscellaneous strip 03/28/2017 Use to test blood sugar six times daily furosemide 40 mg oral tablet 04/08/2017 08/06/2017 Take 1 tablet (40mg) and 1 ( 20mg) tablet QD, (60mgs OD). bupropion HCl 100 mg oral tablet 04/08/2017 TAKE 1 TABLET BY MOUTH THREE TIMES DAILY risperidone 1 mg oral tablet 05/07/2017 take 2 tablets by oral route daily for 60 days Aspirin 325 mg Oral Tablet 05/07/2017 take 1 tablet (325 mg) by oral route once daily risperidone 2 mg oral tablet 05/10/2017 06/07/2017 TAKE 1 TABLET BY MOUTH ONCE A DAY AT BEDTIME aspirin 325 mg oral tablet,delayed release (DR/EC) 05/10/2017 07/09/2017 TAKE 1 TABLET BY MOUTH ONCE A DAY carvedilol 12.5 mg oral tablet 05/10/2017 07/05/2017 TAKE 1 TABLET (12.5 MG) BY ORAL ROUTE 2 TIMES PER DAY WITH FOOD Percocet 10-325 mg oral tablet 05/21/2017 06/20/2017 take 1 tablet by oral route every [...] to test blood sugar six times daily Discontinued Name Start Date Discontinued Date SIG [...] at bedtime (for male) for 30 days Problem List Description Status [...] 3 (moderate) Active Chronic coughing Active 01/27/2017 Vital Signs Date Time BP-Sys(mm[Hg] BP-Ellie(mm[Hg]) HR(bpm) RR(rpm) Temp WT HT HC BMI BSA BMI Percentile O2 Sat(%) 05/21/2017 1:36:00 PM 129 mmHg 70 mmHg [...] AUTO W/O SCOPE Reviewed 05/10/2016 12:00 AM [facility] MEDICARE - flu vaccine administration Reviewed 05/10/2016 [...] 12:00 AM Kenalog, Per 10 Mg [facility]#[id number] Reviewed 06/04/2013 12:00 AM Drug Screen (Medicare) [...] SYNVISC-ONE, Per 1 Mg (6ml) [facility] [address]-32 Reviewed 05/06/2014 12:00 AM OFFICE/OUTPATIENT VISIT EST Reviewed 06/03/2014 12:00 AM DRAIN/INJ JOINT/BURSA W/O US Reviewed 06/03/2014 12:00 AM SYNVISC-ONE, Per 1 Mg (6ml) [facility] [id number] Reviewed 08/26/2014 12:00 AM RADIOLOGIC EXAM SACROILIAC JOINTS 3/MORE VIEWS Reviewed 01/20/2015 12:00 AM DRAIN/INJ JOINT/BURSA W/O US Reviewed 01/20/2015 12:00 AM SYNVISC-ONE, Per 1 Mg (6ml) [facility] [address]-45 Reviewed 02/24/2015 12:00 AM DRAIN/INJ JOINT/BURSA W/O US Reviewed 02/24/2015 12:00 AM SYNVISC-ONE, Per 1 Mg (6ml) [facility] [id number] Reviewed Results Summary Date and Description Results [...] Influenza 05/10/2016 sanofi pasteur [facility] Fluzone Quadrivalent [id number] Intramuscular Left Upper Arm 05/10/2016 02/04/2015 141 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 Unknown 06/21/2016 07/01/2017 [...] is to add ARB in the future Osteoarthrosis, lower leg Oct 09 2012 9:26AM [...] Aug 03 2015 1:55PM Chronic Back Pain b 2015 1:55PM Essential Hypertension Aug 31 2015 [...] 3:04PM Flu Vaccine May 21 2017 5:47PM Payers Insurance Name Company Name Plan Name Plan Number Policy Number Policy Group Number Start Date Medicare RHC Medicare RHC [id number] Saturday, 2001 Medicare Part A Medicare - Lab/Xray [id number] Saturday, December 29, 2001 Medicare Part B Medicare Of [place] [id number] Saturday, December 29, 2001 Medicare Part A Medicare Part A [id number] Saturday, December 29, 2001 History of Encounters Visit Date Visit Type Provider 05/21/2017 Office visit Maribel GUARDADO 02/20/2017 Office [...] Laboratory Maribel GUARDADO 06/06/2016 Office visit Maribel ValCharley Dariel ROBERTSP 05/09/2016 Office visit Maribel ValCharley Dariel ROBERTSP 03/07/2016 Office visit Maribel NealCharley Dariel ROBERTSP 02/08/2016 Office visit Maribel ValCharley Dariel ROBERTSP 01/11/2016 Office visit Maribel ValCharley Dariel ROBERTSP 12/14/2015 Office visit Maribel NealCharley Dariel ROBERTSP 11/14/2015 Office visit Maribel ROBERTSP 10/03/2015 Office visit Maribel ROBERTSP 09/06/2015 Laboratory Maribel NealCharley Dariel HEAD INSULATION BOARD SAW OPERATOR 08/31/2015 Office visit Maribel ValCharley Dariel ROBERTSP 08/03/2015 Office visit Maribel NealCharley Dariel ROBERTSP 07/06/2015 Office visit Maribel ROBERTSP 06/09/2015 Nurse visit Maribel ROBERTSP 05/17/2015 Office visit Maribel NealCharley Dariel ROBERTSP 04/25/2015 Office visit Maribel ROBERTSP 03/28/2015 [...] visit Maribel ROBERTSP 08/27/2013 Office visit Maribel GUARDADO 07/02/2013 Office visit Maribel GUARDADO 06/04/2013 Office visit Maribel GUARDADO 10/09/2012 Office visit Lloyd Oviedo MD 05/08/2010 Office visit Lloyd Oviedo MD 04/21/2010 Office visit Lloyd Oviedo MD
--- OUTSIDE RECORDS SUMMARY | 2018-07-23 10:39 | XMS REPORT ---
Author Author Maribel Vieira [facility] Address [address] [place], [place] [id number] Care Team Providers Care Clinical Business Analyst Name Role Phone Maribel Vieira PCP Elias Malagon Unavailable Unavailable Deborah Linares Unavailable Unavailable Allergies and Adverse Reactions Name Reaction Notes PENICILLINS Plan of Treatment Planned Activity Comments Planned Date Planned Time Plan/Goal GENERAL HEALTH PANEL 09/01/2015 12:00 AM ASSAY OF PSA TOTAL 09/01/2015 12:00 AM LIPID PANEL 09/01/2015 12:00 AM Medications Active Name Start Date [...] HOURS NEEDED FOR SPASM. FOR 30 DAYS Neurontin 300 mg oral capsule 07/04/2015 TAKE 2 CAPSULES (600 MG) BY ORAL ROUTE 3 TIMES PER DAY FOR 30 DAYS Symbicort 160-4.5 mcg/actuation inhalation HFA aerosol inhaler inhale 2 puffs by inhalation route 2 times per day in the morning and evening cyclobenzaprine 10 mg oral tablet 08/03/2015 TAKE 1 TABLET BY MOUTH EVERY 8 HOURS NEEDED FOR SPASM risperidone 1 mg oral tablet 08/03/2015 10/02/2015 take 2 tablets by oral route daily for 60 days gabapentin 300 mg oral capsule 08/11/2015 TAKE 2 CAPSULES BY MOUTH THREE TIMES DAILY morphine 15 mg oral tablet extended release 08/31/2015 09/30/2015 Take one tablet twice daily at 8 am and 8pm and take two tablets (30 mg) po once daily at 2 pm Percocet 10-325 mg oral tablet 08/31/2015 09/30/2015 take 1 tablet by oral route every [...] Active 09/01/2015 Chronic Back Pain Active 09/01/2015 Vital Signs Date Time BP-Sys(mm[Hg] BP-Ellie(mm[Hg]) HR(bpm) RR(rpm) Temp WT HT HC BMI BSA BMI Percentile O2 Sat(%) 08/31/2015 1:16:00 PM 116 mmHg 66 mmHg [...] abuse disabeled Did not serve in recieving [employer] Security Disability History of Procedures Date Ordered Description Order Status 06/09/2015 12:00 AM OFFICE/OUTPATIENT VISIT EST Reviewed 10/09/2012 12:00 AM DRAIN/INJ JOINT/BURSA W/O US Reviewed 10/09/2012 12:00 AM Kenalog, Per 10 Mg [facility]#[id number] Reviewed 06/04/2013 12:00 AM Drug Screen (Medicare) [...] SYNVISC-ONE, Per 1 Mg (6ml) [facility] [id number] Reviewed 05/06/2014 12:00 AM OFFICE/OUTPATIENT VISIT EST Reviewed 06/03/2014 12:00 AM DRAIN/INJ JOINT/BURSA W/O US Reviewed 06/03/2014 12:00 AM SYNVISC-ONE, Per 1 Mg (6ml) [facility] [id number] Reviewed 08/26/2014 12:00 AM RADIOLOGIC EXAM SACROILIAC JOINTS 3/MORE VIEWS Returned 01/20/2015 12:00 AM DRAIN/INJ JOINT/BURSA W/O US Reviewed 01/20/2015 12:00 AM SYNVISC-ONE, Per 1 Mg (6ml) [facility] [id number] Returned 02/24/2015 12:00 AM DRAIN/INJ JOINT/BURSA W/O US Reviewed 02/24/2015 12:00 AM SYNVISC-ONE, Per 1 Mg (6ml) [facility] [id number] Returned Results Summary Data and Description Results 04/21/2010 10:16 AM URIC ACID 5.5 mg/dLSEDRATE 8.0 mm/hr 08/19/2015 1:09 PM Dialated Eye Exam- Diabetic Done PQRS 14 Diabetic Eye Exam Retinal/Dilated Eye Exam Performed by Eye Prof. PQRS 14 Diabetic Dilated Macular Examination Yes Hgb A1c Fr Bld 7.30 % 08/19/2015 1:11 PM Pneumonia Shot Yes, but Done Elsewhere History Of Immunizations Not available. History of [...] with complications 09/01/2015 Chronic Back Pain 09/01/2015 Osteoarthrosis, lower leg Oct 09 2012 9:26AM [...] for prostate cancer Aug 31 2015 1:18PM Payers Insurance Name Company Name Plan Name Plan Number Policy Number Policy Group Number Start Date Medicare Part A Medicare Part A [id number] Saturday, 2001 Medicare Part B Medicare Of [place] [id number] Saturday, 2001 History of Encounters Visit Date Visit Type Provider 08/31/2015 Office visit Maribel GUARDADO 08/03/2015 Office visit Maribel GUARDADO 07/06/2015 Office visit Maribel GUARDADO 06/09/2015 Nurse visit Maribel GUARDADO 05/17/2015 Office visit Maribel GUARDADO 04/25/2015 Office visit Maribel M. Darile ROBERTSP 03/28/2015 Office visit Maribel ValCharley Dariel ROBERTSP 02/24/2015 Office visit Maribel M. Dariel ROBERTSP 01/20/2015 Office visit Maribel Faith Dariel ROBERTSP 12/23/2014 Office visit Maribel Vieira SEWING MACHINE OPERATOR FLOORPERSON 11/25/2014 Office visit Maribel Faith Dariel ROBERTSP 10/21/2014 Nurse visit Maribel Vianney ROBERTSP 09/29/2014 Office visit Maribel ValCharley Dariel ROBERTSP 08/26/2014 Office visit Maribel Faith Dariel ROBERTSP 07/29/2014 Nurse visit Maribel ValCharley Dariel ROBERTSP 06/29/2014 Nurse visit Maribel ValCharley Dariel ROBERTSP 06/03/2014 Office visit Maribel ValCharley Dariel ROBERTSP 05/06/2014 Nurse visit Maribel Faith Dariel ROBERTSP 04/08/2014 Nurse visit Maribel Fatih Dariel ROBERTSP 03/11/2014 Office visit Maribel Vianney ROBERTSP 02/11/2014 Office visit Maribel ROBERTSP 01/14/2014 Office visit Maribel ROBERTSP 12/17/2013 Office visit Maribel Vianney ROBERTSP 11/19/2013 Office visit Maribel ROBERTSP 10/22/2013 Office visit Maribel ROBERTSP 09/24/2013 Office visit Maribel ROBERTSP 08/27/2013 Office visit Maribel ROBERTSP 07/02/2013 Office visit Maribel ROBERTSP 06/04/2013 Office visit Maribel GUARDADO 10/09/2012 Office visit Lloyd Oviedo MD 05/08/2010 Office visit Lloyd Oviedo MD 04/21/2010 Office visit Lloyd Oviedo MD
--- OUTSIDE RECORDS SUMMARY | 2018-07-23 10:40 | XMS REPORT ---
Author Author Maribel Vieira [facility] Address [address] [place], [place] [id number] Care Team Providers Care Pallet Repairer Name Role Phone Maribel Vieira PCP Elias Malagon Unavailable Unavailable Deborah Linares Unavailable Unavailable Allergies and Adverse Reactions Name Reaction Notes PENICILLINS Plan of Treatment Planned Activity Comments Planned Date Planned Time Plan/Goal Lipid profile 09/06/2015 12:00 AM GENERAL HEALTH PANEL 09/06/2015 12:00 AM PSA TOTAL 09/06/2015 12:00 AM PSA TOTAL 12/03/2016 12:00 AM CBC W/ AUTO DIFF (RFLX MAN DIFF IF IND). 12/03/2016 12:00 AM HEMOGLOBIN A1C 12/03/2016 12:00 AM TSH 12/03/2016 12:00 AM CMP 12/03/2016 12:00 AM T1DM - insulin pump -current [...] substance abuse disabeled Did not serve in [employer] Disability History of Procedures Date Ordered Description [...] SCOPE Reviewed 05/10/2016 12:00 AM [facility] MEDICARE - flu vaccine administration Reviewed 05/10/2016 [...] X-RAY 2VW FRONTAL&LATL Reviewed 12/03/2016 12:00 AM COLLECTION VENOUS BLOOD VENIPUNCTURE Reviewed 10/09/2012 12:00 AM DRAIN/INJ JOINT/BURSA W/O US Reviewed 10/09/2012 12:00 AM Kenalog, Per 10 Mg [facility]#[id number] Reviewed 06/04/2013 12:00 AM Drug Screen (Medicare) [...] 12:00 AM SYNVISC-ONE, Per 1 Mg (6ml) [facility] [id number] Reviewed 05/06/2014 12:00 AM OFFICE/OUTPATIENT VISIT EST Reviewed 06/03/2014 12:00 AM DRAIN/INJ JOINT/BURSA W/O US Reviewed 06/03/2014 12:00 AM SYNVISC-ONE, Per 1 Mg (6ml) [facility] [id number] Reviewed 08/26/2014 12:00 AM RADIOLOGIC EXAM SACROILIAC JOINTS 3/MORE VIEWS Reviewed 01/20/2015 12:00 AM DRAIN/INJ JOINT/BURSA W/O US Reviewed 01/20/2015 12:00 AM SYNVISC-ONE, Per 1 Mg (6ml) [facility] [id number] Reviewed 02/24/2015 12:00 AM DRAIN/INJ JOINT/BURSA W/O US Reviewed 02/24/2015 12:00 AM SYNVISC-ONE, Per 1 Mg (6ml) [facility] [id number] Reviewed Results Summary Date and Description Results [...] Given Vis Pub CVX Influenza 05/10/2016 [facility] PMC Fluzone Quadrivalent [id number] Intramuscular Left Upper Arm 05/10/2016 02/04/2015 141 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 Unknown 06/21/2016 07/01/2017 [...] Chronic kidney disease Dec 03 2016 3:57PM Payers Insurance Name Company Name Plan Name Plan Number Policy Number Policy Group Number Start Date Medicare RHC Medicare RHC [id number] Saturday, 2001 Medicare Part A Medicare - Lab/Xray [id number] Saturday, December 29, 2001 Medicare Part B Medicare Of [place] [id number] Saturday, December 29, 2001 Medicare Part A Medicare Part A [id number] Saturday, December 29, 2001 History of Encounters Visit Date Visit Type Provider 12/03/2016 Laboratory Maribel GUARDADO 11/21/2016 Office visit Maribel GUARDADO 10/26/2016 Office visit Marbiel GUARDADO 10/04/2016 Office visit Maribel GUARDADO 09/28/2016 [...] Office visit Maribel GUARDADO 11/14/2015 Office visit Marbiel GUARDADO 10/03/2015 Office visit Maribel Vieira SOLE SCRAPER 09/06/2015 Laboratory Maribel Vieira SOLE SCRAPER 08/31/2015 Office visit Maribel M. Dariel ROBERTSP 08/03/2015 Office visit Maribel M. Dariel ROBERTSP 07/06/2015 Office visit Maribel M. Dariel ROBERTSP 06/09/2015 Nurse visit Maribel Faith Dariel ROBERTSP 05/17/2015 Office visit Maribel Faith Dariel ROBERTSP 04/25/2015 Office visit Maribel ValCharley Dariel ROBERTSP 03/28/2015 Office visit Maribel M. Dariel ROBERTSP 02/24/2015 Office visit Maribel Faith Dariel ROBERTSP 01/20/2015 Office visit Maribel Vieira SOLE SCRAPER 12/23/2014 Office visit Maribel M. Dariel ROBERTSP 11/25/2014 Office visit Maribel Faith Dariel ROBERTSP 10/21/2014 Nurse visit Maribel Faith Dariel ROBERTSP 09/29/2014 Office visit Maribel Faith Dariel ROBERTSP 08/26/2014 Office visit Maribel ValCharley Dariel ROBERTSP 07/29/2014 Nurse visit Maribel ValCharley Dariel ROBERTSP 06/29/2014 Nurse visit Maribel ValCharley Dariel ROBERTSP 06/03/2014 Office visit Maribel ValCharley Dariel ROBERTSP 05/06/2014 Nurse visit Maribel Faith Dariel ROBERTSP 04/08/2014 Nurse visit Maribel M. Dariel ROBERTSP 03/11/2014 Office visit Maribel NealCharley Dariel ROBERTSP 02/11/2014 Office visit Maribel M. [...]
--- OUTSIDE RECORDS SUMMARY | 2018-07-23 10:42 | XMS REPORT ---
Author Author Maribel Vieira [facility] Address [address] [place], [place] [id number] Care Team Providers Care Assembly Loader Name Role Phone Maribel Vieira PCP Elias [...] AUTO DIFF (RFLX MAN DIFF IF IND). 12/30/2017 12:00 AM COMPREHENSIVE METABOLIC PANEL 12/30/2017 12:00 AM URINALYSIS W/MICRO C&S IF IND 12/30/2017 12:00 AM MAGNESIUM. 12/30/2017 12:00 AM T1DM - insulin pump -current [...] MOUTH ONCE A DAY IN THE EVENING Voltaren 1 % topical gel 08/07/2017 apply [...] at bedtime Percocet 10-325 mg oral tablet 12/30/2017 01/29/2018 take 1 tablet by oral route every [...] 1 ( 20mg) tablet QD, (60mgs OD). SensorTran Ultra Test miscellaneous strip 04/30/2017 04/30/2017 Use to test blood sugar six times daily Aspirin 325 mg Oral Tablet 05/07/2017 take 1 tablet (325 mg) by oral route once daily aspirin 325 mg oral tablet,delayed release (DR/EC) 05/10/2017 07/09/2017 TAKE 1 TABLET BY MOUTH ONCE A DAY risperidone 0.5 mg oral tablet 05/28/2017 WEAN by 0.5 mg weekly - called to [place] [facility] potassium chloride 10 mEq oral tablet [...] HC BMI BSA BMI Percentile O2 Sat(%) 12/30/2017 1:56:00 PM 132 mmHg 74 mmHg [...] AUTO W/O SCOPE Reviewed 05/10/2016 12:00 AM [facility] MEDICARE - flu vaccine administration Reviewed 05/10/2016 [...] C AB TEST Returned 05/21/2017 12:00 AM [facility] MEDICARE - flu vaccine administration Reviewed 05/21/2017 [...] 10/09/2012 12:00 AM Kenalog, Per 10 Mg [facility]#[id number] Reviewed 12/30/2017 12:00 AM COLLECTION VENOUS BLOOD [...] 12:00 AM SYNVISC-ONE, Per 1 Mg (6ml) [facility] [id number] Reviewed 05/06/2014 12:00 AM OFFICE/OUTPATIENT VISIT EST Reviewed 06/03/2014 12:00 AM DRAIN/INJ JOINT/BURSA W/O US Reviewed 06/03/2014 12:00 AM SYNVISC-ONE, Per 1 Mg (6ml) [facility] [id number] Reviewed 08/26/2014 12:00 AM RADIOLOGIC EXAM SACROILIAC JOINTS 3/MORE VIEWS Reviewed 01/20/2015 12:00 AM DRAIN/INJ JOINT/BURSA W/O US Reviewed 01/20/2015 12:00 AM SYNVISC-ONE, Per 1 Mg (6ml) [facility] [id number] Reviewed 02/24/2015 12:00 AM DRAIN/INJ JOINT/BURSA W/O US Reviewed 02/24/2015 12:00 AM SYNVISC-ONE, Per 1 Mg (6ml) [facility] [id number] Reviewed Results Summary Date and Description Results [...] Influenza 05/10/2016 [facility] PMC Fluzone Quadrivalent [id number] Intramuscular Left Upper Arm 05/10/2016 02/04/2015 141 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 Unknown 06/21/2016 07/01/2018 33 Influenza 05/21/2017 [email or web address] PMC FLUZONE [id number] Intramuscular Left Arm 05/22/2017 [...] 2013 9:48AM Pain in joint; Knee Left Mar 11 2014 9:48AM Right Knee Pain Sep 2013 9:48AM Right Osteoarthritis, knee Worsening Mar 11 2014 11:45AM Moderate Right Pain, knee Sep 11 2014 11:45AM Spondylosis, 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 [...] region Feb 2015 1:55PM Radiculopathy, lumbar region Feb 3 2015 1:55PM Chronic Back Pain Feb 2015 1:55PM Essential Hypertension Aug 31 2015 [...] pain, unspecified type Dec 30 2017 2:44PM Payers Insurance Name Company Name Plan Name Plan Number Policy Number Policy Group Number Start Date Medicare RHC Medicare RHC [id number] Saturday, 2001 Medicare Part A Medicare - Lab/Xray [id number] Saturday, December 29, 2001 Medicare Part B Medicare Of [place] [id number] Saturday, December 29, 2001 Medicare Part A Medicare Part A [id number] Saturday, December 29, 2001 History of Encounters Visit Date Visit Type Provider 12/30/2017 Office visit Maribel GUARDADO 12/03/2017 Office visit Maribel GUARDADO 11/06/2017 Office visit Maribel GUARDADO 10/09/2017 Office visit Maribel GUARDADO 09/26/2017 Hospital [facility] Marina MD 09/11/2017 Office visit Maribel GUARDADO 08/14/2017 Office visit Maribel GUARDADO 08/07/2017 Office visit Maribel GUARDADO 07/24/2017 Laboratory Maribel GUARDADO 07/17/2017 Office visit Maribel GUARDADO 06/19/2017 Office visit Maribel Fiath Dariel CLIENT SERVER DEVELOPER 06/05/2017 Office visit Maribel Faith Dariel CLIENT SERVER DEVELOPER 05/28/2017 Office visit Maribel Faith Dariel CLIENT SERVER DEVELOPER 05/21/2017 Office visit Maribel Faith Dariel ROBERTSP 02/20/2017 Office visit Maribel Vieira CLIENT SERVER DEVELOPER 01/16/2017 Office visit Maribel Vieira CLIENT SERVER DEVELOPER 12/19/2016 Office visit Maribel ValCharley Dariel CLIENT SERVER DEVELOPER 12/03/2016 Laboratory Maribel ValCharley Dariel CLIENT SERVER DEVELOPER 11/21/2016 Office visit Maribel Vieira CLIENT SERVER DEVELOPER 10/26/2016 Office visit Maribel Vieira CLIENT SERVER DEVELOPER 10/04/2016 Office visit Maribel Faith Dariel CLIENT SERVER DEVELOPER 09/28/2016 Office visit Maribel Faith Dariel ROBERTSP 09/26/2016 Office visit Maribel Faith Dariel ROBERTSP 08/29/2016 Office visit Maribel Vieira CLIENT SERVER DEVELOPER 08/01/2016 Laboratory Maribel ValCharley Dariel CLIENT SERVER DEVELOPER 07/04/2016 Office visit Maribel ValCharley Dariel ROBERTSP 06/07/2016 Laboratory Maribel ValCharley Dariel ROBERTSP 06/06/2016 Office visit Maribel Faith Dariel ROBERTSP 05/09/2016 Office visit Maribel Faith Dariel ROBERTSP 03/07/2016 Office visit Maribel M. Dariel ROBERTSP 02/08/2016 Office visit Maribel M. Dariel ROBERTSP 01/11/2016 Office visit Maribel Faith Dariel ROBERTSP 12/14/2015 Office visit Maribel Faith Dariel ROBERTSP 11/14/2015 Office visit Maribel ValCharley Dariel ROBERTSP 10/03/2015 Office visit Maribel Vieira CLIENT SERVER DEVELOPER 09/06/2015 Laboratory Maribel ValCharley Dariel ROBERTSP 08/31/2015 Office visit Maribel M. Dariel ROBERTSP 08/03/2015 Office visit Maribel M. Dariel ROBERTSP 07/06/2015 Office visit Maribel Vieira CLIENT SERVER DEVELOPER 06/09/2015 Nurse visit Maribel Vieira CLIENT SERVER DEVELOPER 05/17/2015 Office visit Maribel ROBERTSP 04/25/2015 Office visit Maribel ROBERTSP 03/28/2015 Office visit Maribel ROBERTSP 02/24/2015 Office visit Maribel ROBERTSP 01/20/2015 Office visit Maribel ROBERTSP 12/23/2014 Office visit Maribel ROBERTSP 11/25/2014 Office visit Maribel Vianney ROBERTSP 10/21/2014 Nurse visit Maribel ValCharley Dariel ROBERTSP 09/29/2014 Office visit Maribel ROBERTSP 08/26/2014 Office visit Maribel Vianney ROBERTSP 07/29/2014 Nurse visit Maribel M. Dariel ROBERTSP 06/29/2014 Nurse visit Maribel ValCharley Dariel ROBERTSP 06/03/2014 Office visit Maribel ROBERTSP 05/06/2014 Nurse visit Maribel ROBERTSP 04/08/2014 Nurse visit Maribel ValCharley Dariel ROBERTSP 03/11/2014 Office visit Maribel Vianney [...]
--- OUTSIDE RECORDS SUMMARY | 2018-07-23 10:43 | XMS REPORT ---
Author Author Maribel Vieira [facility] Address [address] [place], [place] [id number] Care Team Providers Care Core Blower Name Role Phone Maribel Vieira PCP Elias [...] per day in the morning and evening furosemide 40 mg oral tablet 12/07/2015 12/01/2016 [...] 30 days Percocet 10-325 mg oral tablet 09/26/2016 10/26/2016 take 1 tablet by oral route every 6 hours as needed for 30 days albuterol sulfate 2.5 mg [...] 2 times a day for 90 days Name Start Date Expiration Date SIG [...] HC BMI BSA BMI Percentile O2 Sat(%) 10/04/2016 2:15:00 PM 120 mmHg 70 mmHg [...] AUTO W/O SCOPE Reviewed 05/10/2016 12:00 AM [facility] MEDICARE - flu vaccine administration Reviewed 05/10/2016 12:00 AM INFLUENZA VACCINE QUADRIVALENT 3 YRS PLUS IM Reviewed 06/07/2016 12:00 AM COMPLETE CBC W/AUTO DIFF WBC Returned 06/07/2016 12:00 AM COMPREHEN METABOLIC PANEL Returned 06/07/2016 12:00 AM ASSAY OF FERRITIN Returned 06/06/2016 12:00 AM CHEST X-RAY 2VW FRONTAL&LATL Returned 09/28/2016 12:00 AM CHEST X-RAY 2VW FRONTAL&LATL Reviewed 09/26/2016 12:00 AM UPR/L XTREMITY ART 2 LEVELS Reviewed 10/04/2016 12:00 AM DRAIN/INJ JOINT/BURSA W/O US Reviewed 10/09/2012 12:00 AM DRAIN/INJ JOINT/BURSA W/O US Reviewed 10/09/2012 12:00 AM Kenalog, Per 10 Mg [facility]#[id number] Reviewed 06/04/2013 12:00 AM Drug Screen (Medicare) [...] 12:00 AM SYNVISC-ONE, Per 1 Mg (6ml) [facility] [address]-40 Reviewed 05/06/2014 12:00 AM OFFICE/OUTPATIENT VISIT EST Reviewed 06/03/2014 12:00 AM DRAIN/INJ JOINT/BURSA W/O US Reviewed 06/03/2014 12:00 AM SYNVISC-ONE, Per 1 Mg (6ml) [facility] [id number] Reviewed 08/26/2014 12:00 AM RADIOLOGIC EXAM SACROILIAC JOINTS 3/MORE VIEWS Reviewed 01/20/2015 12:00 AM DRAIN/INJ JOINT/BURSA W/O US Reviewed 01/20/2015 12:00 AM SYNVISC-ONE, Per 1 Mg (6ml) [facility] [id number] Reviewed 02/24/2015 12:00 AM DRAIN/INJ JOINT/BURSA W/O US Reviewed 02/24/2015 12:00 AM SYNVISC-ONE, Per 1 Mg (6ml) [facility] [address]-76 Reviewed Results Summary Data and Description Results [...] Influenza 05/10/2016 [facility] PMC Fluzone Quadrivalent [id number] Intramuscular Left Upper Arm 05/10/2016 02/04/2015 141 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 Unknown 06/21/2016 07/01/2017 [...] Other chronic pain Mar 07 2016 1:20PM Payers Insurance Name Company Name Plan Name Plan Number Policy Number Policy Group Number Start Date Medicare RHC Medicare RHC [id number] Saturday, 2001 Medicare Part A Medicare - Lab/Xray [id number] Saturday, December 29, 2001 Medicare Part B Medicare Of [place] [id number] Saturday, December 29, 2001 Medicare Part A Medicare Part A [id number] Saturday, December 29, 2001 History of Encounters Visit Date Visit Type Provider 10/04/2016 Office visit Maribel GUARDADO 09/28/2016 Office visit Maribel GUARDADO 09/26/2016 Office visit Maribel GUARDADO 08/29/2016 Office visit Maribel GUARDADO 08/01/2016 Laboratory Maribel GUARDADO 07/04/2016 Office visit Maribel Faith Dariel POLICE STENOGRAPHER 06/07/2016 Laboratory Maribel Vieira POLICE STENOGRAPHER 06/06/2016 Office visit Maribel M. Dariel POLICE STENOGRAPHER 05/09/2016 Office visit Maribel Faith Dariel ROBERTSP 03/07/2016 Office visit Maribel Vieira POLICE STENOGRAPHER 02/08/2016 Office visit Maribel Faith Dariel ROBERTSP 01/11/2016 Office visit Maribel ValCharley Dariel POLICE STENOGRAPHER 12/14/2015 Office visit Maribel M. Dariel ROBERTSP 11/14/2015 Office visit Maribel Faith Dariel ROBERTSP 10/03/2015 Office visit Maribel Vieira POLICE STENOGRAPHER 09/06/2015 Laboratory Maribel Vieira POLICE STENOGRAPHER 08/31/2015 Office visit Maribel ValCharley Dariel ROBERTSP 08/03/2015 Office visit Maribel Faith Dariel ROBERTSP 07/06/2015 Office visit Maribel Faith Dariel ROBERTSP 06/09/2015 Nurse visit Maribel ValCharley Dariel ROBERTSP 05/17/2015 Office visit Maribel ROBERTSP 04/25/2015 Office visit Maribel ROBERTSP 03/28/2015 Office visit Maribel M. Dariel ROBERTSP 02/24/2015 Office visit Maribel Faith Dariel ROBERTSP 01/20/2015 Office visit Maribel ROBERTSP 12/23/2014 Office visit Maribel ROBERTSP 11/25/2014 Office visit Maribel Faith Dariel [...]
--- OUTSIDE RECORDS SUMMARY | 2018-07-23 10:45 | XMS REPORT ---
Author Author Maribel Vieira [facility] Address [address] [place], [place] [id number] Care Team Providers Care Student Affairs Vice President Name Role Phone Maribel Vieira [...] 1 ( 20mg) tablet QD, (60mgs OD). [employer] Ultra Test miscellaneous strip 04/30/2017 04/30/2017 Use to test blood sugar six times daily Aspirin 325 mg Oral Tablet 05/07/2017 take 1 tablet (325 mg) by oral route once daily aspirin 325 mg oral tablet,delayed release (DR/EC) 05/10/2017 07/09/2017 TAKE 1 TABLET BY MOUTH ONCE A DAY risperidone 0.5 mg oral tablet 05/28/2017 WEAN by 0.5 mg weekly - called to [facility] potassium chloride 10 mEq oral tablet [...] 05/10/2016 12:00 AM [facility] MEDICARE - flu vaccine administration Reviewed 05/10/2016 [...] 05/21/2017 12:00 AM [facility] MEDICARE - flu vaccine administration Reviewed 05/21/2017 [...] 10/09/2012 12:00 AM Kenalog, Per 10 Mg [facility]#[id number] Reviewed 12/30/2017 12:00 AM COLLECTION VENOUS BLOOD [...] 12:00 AM SYNVISC-ONE, Per 1 Mg (6ml) [facility] [id number] Reviewed 05/06/2014 12:00 AM OFFICE/OUTPATIENT VISIT EST Reviewed 06/03/2014 12:00 AM DRAIN/INJ JOINT/BURSA W/O US Reviewed 06/03/2014 12:00 AM SYNVISC-ONE, Per 1 Mg (6ml) [facility] [id number] Reviewed 08/26/2014 12:00 AM RADIOLOGIC EXAM SACROILIAC JOINTS 3/MORE VIEWS Reviewed 01/20/2015 12:00 AM DRAIN/INJ JOINT/BURSA W/O US Reviewed 01/20/2015 12:00 AM SYNVISC-ONE, Per 1 Mg (6ml) [facility] [id number] Reviewed 02/24/2015 12:00 AM DRAIN/INJ JOINT/BURSA W/O US Reviewed 02/24/2015 12:00 AM SYNVISC-ONE, Per 1 Mg (6ml) [facility] [id number] Reviewed Results Summary Date and Description Results [...] Influenza 05/10/2016 sanofi pasteur PMC Fluzone Quadrivalent [id number] Intramuscular Left Upper Arm 05/10/2016 02/04/2015 141 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/2013 Unknown adjuster and inspector UNK Unknown 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 Unknown 06/21/2016 07/01/2018 33 Influenza 05/21/2017 [facility]Spime [facility] PMC FLUZONE [id number] Intramuscular Left Arm 05/22/2017 [...] 2017 2:44PM Fatigue Dec 30 2017 2:44PM Payers Insurance Name Company Name Plan Name Plan Number Policy Number Policy Group Number Start Date Medicare RHC Medicare RHC [id number] Saturday, 2001 Medicare Part A Medicare - Lab/Xray [id number] Saturday, December 29, 2001 Medicare Part B Medicare Of [place] [id number] Saturday, December 29, 2001 Medicare Part A Medicare Part A [id number] Saturday, December 29, 2001 History of Encounters [...] visit Maribel GUARDADO 06/05/2017 Office visit Maribel Faith Dariel STUDIO CAMERA OPERATOR 05/28/2017 Office visit Maribel Vieira STUDIO CAMERA OPERATOR 05/21/2017 Office visit Maribel Faith Dariel STUDIO CAMERA OPERATOR 02/20/2017 Office visit Maribel Faith Dariel ROBERTSP 01/16/2017 Office visit Maribel Vieira STUDIO CAMERA OPERATOR 12/19/2016 Office visit Maribel Vieira STUDIO CAMERA OPERATOR 12/03/2016 Laboratory Maribel ValCharley Dariel STUDIO CAMERA OPERATOR 11/21/2016 Office visit Maribel M. Dariel STUDIO CAMERA OPERATOR 10/26/2016 Office visit Maribel Vieira STUDIO CAMERA OPERATOR 10/04/2016 Office visit Maribel Vieira STUDIO CAMERA OPERATOR 09/28/2016 Office visit Maribel iVeira STUDIO CAMERA OPERATOR 09/26/2016 Office visit Maribel Faith Dariel ROBERTSP 08/29/2016 Office visit Maribel Faith Dariel ROBERTSP 08/01/2016 Laboratory Maribel Vieira STUDIO CAMERA OPERATOR 07/04/2016 Office visit Maribel Faith Dariel ROBERTSP 06/07/2016 Laboratory Maribel ValCharley Dariel ROBERTSP 06/06/2016 Office visit Maribel ValCharley Dariel ROBERTSP 05/09/2016 Office visit Maribel Faith Dariel ROBERTSP 03/07/2016 Office visit Maribel Faith Dariel ROBERTSP 02/08/2016 Office visit Maribel M. Dariel ROBERTSP 01/11/2016 Office visit Maribel Faith Dariel ORBERTSP 12/14/2015 Office visit Maribel Faith Dariel ROBERTSP 11/14/2015 Office visit Maribel Faith Dariel ROBERTSP 10/03/2015 Office visit Maribel Faith Dariel ROBERTSP 09/06/2015 Laboratory Maribel Vianney ROBERTSP 08/31/2015 Office visit Maribel ROBERTSP 08/03/2015 Office visit Maribel M. Dariel ROBERTSP 07/06/2015 Office visit Maribel ROBERTSP 06/09/2015 Nurse visit Maribel ROBERTSP 05/17/2015 Office visit Maribel ROBERTSP 04/25/2015 Office visit Maribel ROBERTSP 03/28/2015 Office visit Maribel ROBERTSP 02/24/2015 Office visit Maribel ROEBRTSP 01/20/2015 Office visit Maribel ROBERTSP 12/23/2014 Office visit Maribel ROBERTSP 11/25/2014 Office visit Maribel ROBERTSP 10/21/2014 Nurse visit Maribel ROBERTSP 09/29/2014 Office visit Maribel ROBERTSP 08/26/2014 Office visit Maribel ROBERTSP 07/29/2014 Nurse visit Maribel ROBERTSP 06/29/2014 Nurse visit Maribel M. Dariel ROBERTSP 06/03/2014 Office visit Maribel ROBERTSP [...]
--- OUTSIDE RECORDS SUMMARY | 2018-07-23 10:46 | XMS REPORT ---
Author Author Maribel Vieira [facility] Address [address] [place], [place] [id number] Care Team Providers Care Patient Placement Coordinator Name Role Phone Maribel Vieira PCP Elias Malagon Unavailable Unavailable Deborah Linares Unavailable Unavailable Allergies and Adverse Reactions Name Reaction Notes PENICILLINS Plan of Treatment Planned Activity Comments Planned Date Planned Time Plan/Goal Lipid profile 09/06/2015 12:00 AM GENERAL HEALTH PANEL 09/06/2015 12:00 AM PSA TOTAL 09/06/2015 12:00 AM CBC With Auto Differential 06/07/2016 12:00 AM CMP (comprehensive metabolic panel) 06/07/2016 12:00 AM FERRITIN 06/07/2016 12:00 AM Medications Active Name Start Date [...] at bedtime (for male) for 30 days Ranexa 1,000 mg oral [...] A DAY AFTER MEALS AND AT BEDTIME Percocet 10-325 mg oral tablet 06/06/2016 07/06/2016 take 1 tablet by oral route every 6 hours as needed for 30 days doxycycline monohydrate 100 mg oral tablet 06/06/2016 06/13/2016 take 1 tablet by oral route 2 times a day for 7 days ProAir HFA 90 mcg/actuation inhalation HFA aerosol inhaler 06/06/2016 inhale 1 - 2 puffs (90 - 180 mcg) by inhalation route every 4-6 hours as needed fluticasone 50 mcg/actuation nasal spray,suspension 06/06/2016 inhale 2 sprays (100 mcg) in each nostril by intranasal route once daily Name Start Date Expiration [...] HC BMI BSA BMI Percentile O2 Sat(%) 06/06/2016 1:46:00 PM 122 mmHg 76 mmHg [...] AUTO W/O SCOPE Reviewed 05/10/2016 12:00 AM [facility] MEDICARE - flu vaccine administration Reviewed 05/10/2016 12:00 AM INFLUENZA VACCINE QUADRIVALENT 3 YRS PLUS IM Reviewed 06/06/2016 12:00 AM CHEST X-RAY 2VW FRONTAL&LATL Returned 10/09/2012 12:00 AM DRAIN/INJ JOINT/BURSA W/O US Reviewed 10/09/2012 12:00 AM Kenalog, Per 10 Mg [facility]#[id number] Reviewed 06/04/2013 12:00 AM Drug Screen (Medicare) [...] Per 1 Mg (6ml) [facility] [id number] Reviewed 05/06/2014 12:00 AM OFFICE/OUTPATIENT VISIT EST Reviewed 06/03/2014 12:00 AM DRAIN/INJ JOINT/BURSA W/O US Reviewed 06/03/2014 12:00 AM SYNVISC-ONE, Per 1 Mg (6ml) [facility] [id number] Reviewed 08/26/2014 12:00 AM RADIOLOGIC EXAM SACROILIAC JOINTS 3/MORE VIEWS Reviewed 01/20/2015 12:00 AM DRAIN/INJ JOINT/BURSA W/O US Reviewed 01/20/2015 12:00 AM SYNVISC-ONE, Per 1 Mg (6ml) [facility] [id number] Reviewed 02/24/2015 12:00 AM DRAIN/INJ JOINT/BURSA W/O US Reviewed 02/24/2015 12:00 AM SYNVISC-ONE, Per 1 Mg (6ml) [facility] [id number] Reviewed Results Summary Data and Description Results [...] Ur Ql Strip trace History Of Immunizations Name Date Admin Mfg Name Mfg Code Trade Name Lot# Route Inj Vis Given Vis Pub CVX Influenza 05/10/2016 sanofi pasteur PMC Fluzone Quadrivalent [id number] Intramuscular Left Upper Arm 05/10/2016 02/04/2015 141 History of Past Illness Name Date of [...] 8:19AM Back pain Jun 07 2016 8:19AM Payers Insurance Name Company Name Plan Name Plan Number Policy Number Policy Group Number Start Date Medicare Part A Medicare [facility] [id number] Saturday, 2001 Medicare Part A Medicare - Lab/Xray [id number] Saturday, December 29, 2001 Medicare Part B Medicare Of [place] [id number] Saturday, December 29, 2001 Medicare Part A Medicare Part A [id number] Saturday, December 29, 2001 History of Encounters Visit Date Visit Type Provider 06/07/2016 Laboratory Maribel GUARDADO 06/06/2016 Office visit [...]
--- OUTSIDE RECORDS SUMMARY | 2018-07-23 10:47 | XMS REPORT ---
Author Author Maribel Vieira [facility] Address [address] [place], [place] [id number] Care Team Providers Care Blueprint Reader Name Role Phone Maribel Vieira PCP Elias [...] times per day as needed for cough Coreg 12.5 mg oral tablet 11/16/2016 take 1 tablet (12.5 mg) by oral route 2 times per day with food Per pharmacy, they do BLISTER(BUBBLE) pks, 28 day count. Novolog 100 unit/mL subcutaneous solution 03/28/2017 INJECT 160 UNITS DAILY DXE11.43. [employer] Ultra Test miscellaneous strip 03/28/2017 Use to test blood sugar six times daily furosemide 40 mg oral tablet 04/08/2017 08/06/2017 Take 1 tablet (40mg) and 1 ( 20mg) tablet QD, (60mgs OD). bupropion HCl 100 mg oral tablet 04/08/2017 TAKE 1 TABLET BY MOUTH THREE TIMES DAILY Aspirin 325 mg Oral Tablet 05/07/2017 take 1 tablet (325 mg) by oral route once daily aspirin 325 mg oral tablet,delayed release (DR/EC) 05/10/2017 07/09/2017 TAKE 1 TABLET BY MOUTH ONCE A DAY carvedilol 12.5 mg oral tablet 05/10/2017 07/05/2017 TAKE 1 TABLET (12.5 MG) BY ORAL ROUTE 2 TIMES PER DAY WITH FOOD risperidone 0.5 mg oral tablet 05/28/2017 WEAN by 0.5 mg weekly - called to [facility] Percocet 10-325 mg oral tablet 06/19/2017 07/19/2017 take 1 tablet by oral route every 6 hours as needed for 30 days Lyrica 50 mg oral capsule 06/19/2017 08/18/2017 [...] THE EVENING Cymbalta 30 mg oral capsule,delayed release(DR/EC) 06/26/2017 take 2 capsules (60 mg) by [...] TABLET BY MOUTH TWO TIMES A DAY Name Start Date Expiration Date SIG Comments [...] to test blood sugar six times daily potassium chloride 10 mEq oral tablet extended release 05/28/2017 05/28/2017 Take 2 tablets daily in the morning and 1 tablet in the evening Discontinued Name Start Date Discontinued Date SIG [...] HC BMI BSA BMI Percentile O2 Sat(%) 06/19/2017 1:45:00 PM 132 mmHg 68 mmHg [...] substance abuse disabeled Did not serve in [employer] recARDACO Security Disability History of Procedures Date Ordered [...] 05/21/2017 12:00 AM ASSAY OF TOTAL TESTOSTERONE Returned 05/21/2017 12:00 AM HEPATITIS C AB TEST Returned 05/21/2017 12:00 AM [facility] MEDICARE - flu vaccine administration Reviewed 05/21/2017 12:00 AM INFLUENZA VAC 4 VALENT PRSRV FREE 3 YRS PLUS IM Reviewed 10/09/2012 12:00 AM DRAIN/INJ JOINT/BURSA W/O US Reviewed 10/09/2012 12:00 AM Kenalog, Per 10 Mg [facility]#[id number] Reviewed 06/04/2013 12:00 AM Drug Screen (Medicare) [...] 12:00 AM SYNVISC-ONE, Per 1 Mg (6ml) [facility] [id number] Reviewed 05/06/2014 12:00 AM OFFICE/OUTPATIENT VISIT EST Reviewed 06/03/2014 12:00 AM DRAIN/INJ JOINT/BURSA W/O US Reviewed 06/03/2014 12:00 AM SYNVISC-ONE, Per 1 Mg (6ml) [facility] [id number] Reviewed 08/26/2014 12:00 AM RADIOLOGIC EXAM SACROILIAC JOINTS 3/MORE VIEWS Reviewed 01/20/2015 12:00 AM DRAIN/INJ JOINT/BURSA W/O US Reviewed 01/20/2015 12:00 AM SYNVISC-ONE, Per 1 Mg (6ml) [facility] [id number] Reviewed 02/24/2015 12:00 AM DRAIN/INJ JOINT/BURSA W/O US Reviewed 02/24/2015 12:00 AM SYNVISC-ONE, Per 1 Mg (6ml) [facility] [id number] Reviewed Results Summary Date and Description Results [...] Vis Given Vis Pub CVX Influenza 05/10/2016 sanADAPTIX pasteur PMC Fluzone Quadrivalent [id number] Intramuscular Left Upper Arm 05/10/2016 02/04/2015 141 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/2013 Unknown rn office UNK Unknown 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 Unknown 06/21/2016 07/01/2017 33 Influenza 05/21/2017 sanADAPTIX pasteur PMC Fluzone [id number] Intramuscular Left Arm [...] region Jun 04 2013 8:42AM Radiculopathy, lumbosacral Flako 2 2014 10:31AM Postlaminectomy syndrome of lumbar region Jul [...] syndrome Jul 29 2014 10:00AM Radiculopathy, lumbosacral Fe2014 9:01AM Postlaminectomy syndrome of lumbar region Aug [...] Feb 2015 1:55PM Radiculopathy, lumbar region Feb 2015 1:55PM Chronic Back Pain b 2015 [...] Number Start Date Medicare RHC Medicare RHC [id number] Saturday, 2001 Medicare Part A Medicare - Lab/Xray [id number] Saturday, December 29, 2001 Medicare Part B Medicare Of [place] [id number] Saturday, December 29, 2001 Medicare Part A Medicare Part A [id number] Saturday, December 29, 2001 History of Encounters Visit Date Visit Type Provider 06/19/2017 Office visit Maribel ROBERTSP 06/05/2017 Office [...] Faith Dariel ROBERTSP 01/20/2015 Office visit Maribel Fatih Dariel ROBERTSP 12/23/2014 Office visit Maribel Vieira STUDENT OFFICER 11/25/2014 Office visit Maribel Vieira STUDENT OFFICER 10/21/2014 Nurse visit Maribel Faith Dariel ROBERTSP 09/29/2014 Office visit Maribel Faith Dariel ROBERTSP 08/26/2014 Office visit Maribel Faith Dariel ROBERTSP 07/29/2014 Nurse visit Maribel Vieira STUDENT OFFICER 06/29/2014 Nurse visit Maribel Vieira STUDENT OFFICER 06/03/2014 Office visit Maribel Faith Dariel ROBERTSP 05/06/2014 Nurse visit Maribel Faith Dariel ROBERTSP 04/08/2014 Nurse visit Maribel Vieira STUDENT OFFICER 03/11/2014 Office visit Maribel Vieira STUDENT OFFICER 02/11/2014 Office visit Maribel M. Dariel ROBERTSP 01/14/2014 Office visit Maribel M. Dariel ROBERTSP 12/17/2013 Office visit Maribel ValCharley Dariel ROBERTSP 11/19/2013 Office visit Maribel Faith Dariel ROBERTSP 10/22/2013 Office visit Maribel M. Dariel ROBERTSP 09/24/2013 Office visit Maribel NealCharley Dariel ROBERTSP 08/27/2013 Office visit Maribel ROBERTSP 07/02/2013 Office visit Maribel ROBERTSP 06/04/2013 Office visit Maribel ROBERTSP 10/09/2012 Office visit Lloyd Oviedo MD 05/08/2010 Office visit Lloyd Oviedo MD 04/21/2010 Office visit Lloyd Oviedo MD
--- OUTSIDE RECORDS SUMMARY | 2018-07-23 10:48 | XMS REPORT ---
Author Author Maribel Vieira [facility] Address [address] [place], [place] [address] Care Team Providers Care Stamper Blocker Name Role Phone Maribel Vieira PCP Allergies [...] HOURS NEEDED FOR SPASM. FOR 30 DAYS morphine 15 mg oral tablet extended release 05/17/2015 06/16/2015 take 1 tablet (15 mg) by oral route every 8 hours for 30 days Percocet 10-325 mg oral tablet 05/17/2015 06/16/2015 take 1 tablet by oral route every [...] HC BMI BSA BMI Percentile O2 Sat(%) 05/17/2015 8:53:00 AM 118 mmHg 62 mmHg [...] 10/09/2012 12:00 AM Kenalog, Per 10 Mg [facility]#[id number] Reviewed 06/04/2013 12:00 AM Drug Screen (Medicare) [...] 12:00 AM SYNVISC-ONE, Per 1 Mg (6ml) [facility] [address]-34 Reviewed 05/06/2014 12:00 AM OFFICE/OUTPATIENT VISIT EST Reviewed 06/03/2014 12:00 AM DRAIN/INJ JOINT/BURSA W/O US Reviewed 06/03/2014 12:00 AM SYNVISC-ONE, Per 1 Mg (6ml) [facility] [address]-76 Reviewed 08/26/2014 12:00 AM RADIOLOGIC EXAM SACROILIAC JOINTS 3/MORE VIEWS Returned 01/20/2015 12:00 AM DRAIN/INJ JOINT/BURSA W/O US Reviewed 01/20/2015 12:00 AM SYNVISC-ONE, Per 1 Mg (6ml) [facility] [address]-42 Returned 02/24/2015 12:00 AM DRAIN/INJ JOINT/BURSA W/O US Reviewed 02/24/2015 12:00 AM SYNVISC-ONE, Per 1 Mg (6ml) [facility] [address]-55 Returned Results Summary Data and Description Results [...] Radiculopathy, lumbar region May 17 2015 8:59AM Payers Insurance Name Company Name Plan Name Plan Number Policy Number Policy Group Number Start Date Medicare Part B Medicare Of [place] [id number] Saturday, 2001 History of Encounters Visit Date Visit Type Provider 05/17/2015 Office visit Maribel GUARDADO 04/25/2015 Office [...] visit Maribel GUARDADO 08/27/2013 Office visit Maribel GURADADO 07/02/2013 Office visit Maribel GUARDADO 06/04/2013 Office visit Maribel GUARDADO 10/09/2012 Office visit Lloyd Oviedo MD 05/08/2010 Office visit Lloyd Oviedo MD 04/21/2010 Office visit Lloyd Oviedo MD
--- OUTSIDE RECORDS SUMMARY | 2018-07-23 10:49 | XMS REPORT ---
Author Author Maribel Vieira [facility] Address [address] [place], [place] [address] Care Team Providers Care Rug Weaver Name Role Phone Maribel Vieira PCP Elias [...] they do BLISTER(BUBBLE) pks, 28 day count. carvedilol 12.5 mg oral tablet 01/09/2017 TAKE 1 TABLET (12.5 MG) BY ORAL ROUTE 2 TIMES PER DAY WITH FOOD potassium chloride 10 mEq oral tablet extended release 02/05/2017 Take 2 tablets daily in the morning and 1 tablet in the evening Ranexa 1,000 mg oral tablet extended release 12 hr 03/06/2017 06/26/2017 TAKE 1 TABLET BY MOUTH TWO TIMES A DAY Novolog 100 unit/mL subcutaneous solution 03/28/2017 INJECT 160 UNITS DAILY DXE11.43. [employer] Ultra Test miscellaneous strip 03/28/2017 Use to test blood sugar six times daily furosemide 40 mg oral tablet 04/08/2017 08/06/2017 Take 1 tablet (40mg) and 1 ( 20mg) tablet QD, (60mgs OD). Ambien 10 mg oral tablet 04/08/2017 07/07/2017 take 1 tablet (10 mg) by oral route once daily at bedtime (for male) for 30 days bupropion HCl 100 mg oral tablet 04/08/2017 TAKE 1 TABLET BY MOUTH THREE TIMES DAILY Percocet 10-325 mg oral tablet 04/23/2017 05/23/2017 take 1 tablet by oral route every [...] BY MOUTH ONCE A DAY ACEI cough Problem List Description Status Onset Congestive Heart [...] HC BMI BSA BMI Percentile O2 Sat(%) 02/20/2017 1:32:00 PM 130 mmHg 76 mmHg [...] 12:00 AM Kenalog, Per 10 Mg [facility]#[id number] Reviewed 06/04/2013 12:00 AM Drug Screen (Medicare) [...] AM SYNVISC-ONE, Per 1 Mg (6ml) [facility] [id number] Reviewed 05/06/2014 12:00 AM OFFICE/OUTPATIENT VISIT EST Reviewed 06/03/2014 12:00 AM DRAIN/INJ JOINT/BURSA W/O US Reviewed 06/03/2014 12:00 AM SYNVISC-ONE, Per 1 Mg (6ml) [facility] [id number] Reviewed 08/26/2014 12:00 AM RADIOLOGIC EXAM SACROILIAC JOINTS 3/MORE VIEWS Reviewed 01/20/2015 12:00 AM DRAIN/INJ JOINT/BURSA W/O US Reviewed 01/20/2015 12:00 AM SYNVISC-ONE, Per 1 Mg (6ml) [facility] [id number] Reviewed 02/24/2015 12:00 AM DRAIN/INJ JOINT/BURSA W/O US Reviewed 02/24/2015 12:00 AM SYNVISC-ONE, Per 1 Mg (6ml) [facility] [id number] Reviewed Results Summary Date and Description Results [...] Influenza 05/10/2016 sanofi pasteur PMC Fluzone Quadrivalent [id number] Intramuscular Left Upper Arm 05/10/2016 02/04/2015 141 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/2013 Unknown licensed physical therapist UNK Unknown 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 Unknown 06/21/2016 07/01/2017 [...] 1:34PM Chronic coughing Feb 20 2017 1:34PM Payers Insurance Name Company Name Plan Name Plan Number Policy Number Policy Group Number Start Date Medicare RHC Medicare RHC [id number] Saturday, 2001 Medicare Part A Medicare - Lab/Xray [id number] Saturday, December 29, 2001 Medicare Part B Medicare Of [place] [id number] Saturday, December 29, 2001 Medicare Part A Medicare Part A [id number] Saturday, December 29, 2001 History of Encounters Visit Date Visit Type Provider 02/20/2017 Office visit Maribel GUARDADO 01/16/2017 Office [...] visit Maribel GUARDADO 03/28/2015 Office visit Maribel Faith Dariel ROBERTSP 02/24/2015 Office visit Maribel M. Dariel ROBERTSP 01/20/2015 Office visit Maribel Faith Dariel ROBERTSP 12/23/2014 Office visit Maribel Faith Dariel ROBERTSP 11/25/2014 Office visit Maribel Vieira SOLAR SYSTEM DESIGNER 10/21/2014 Nurse visit Maribel Faith Dariel ROBERTSP 09/29/2014 Office visit Maribel ValCharley Dariel ROBERTSP 08/26/2014 Office visit Maribel ValCharley Dariel ROBERTSP 07/29/2014 Nurse visit Maribel Faith Dariel ROBERTSP 06/29/2014 Nurse visit Maribel Faith Dariel ROBERTSP 06/03/2014 Office visit Amribel M. Dariel ROBERTSP 05/06/2014 Nurse visit Maribel ValCharley Dariel ROBERTSP 04/08/2014 Nurse visit Maribel Faith Dariel ROBERTSP 03/11/2014 Office visit Maribel Vieira SOLAR SYSTEM DESIGNER 02/11/2014 Office visit Maribel M. Dariel ROBERTSP 01/14/2014 Office visit Maribel ROBERTSP 12/17/2013 Office visit Maribel ROBERTSP 11/19/2013 Office visit Maribel ValCharley Dariel ROBERTSP 10/22/2013 Office visit Maribel MCharley ROBERTSP 09/24/2013 Office visit Maribel ROBERTSP 08/27/2013 Office visit Maribel ROBERTSP 07/02/2013 Office visit Maribel ROBERTSP 06/04/2013 Office visit Maribel ROBERTSP 10/09/2012 Office visit Lloyd Oviedo MD 05/08/2010 Office visit Lloyd Oviedo MD 04/21/2010 Office visit Lloyd Oviedo MD
--- OUTSIDE RECORDS SUMMARY | 2018-07-23 10:51 | XMS REPORT ---
Author Author Maribel Vieira [facility] Address [address] [place], [place] [address] Care Team Providers Care Aoc Operations Intelligence Officer Name Role Phone Maribel Vieira PCP Elias [...] solution 03/28/2017 INJECT 160 UNITS DAILY DXE11.43. [employer] Ultra Test miscellaneous strip 03/28/2017 Use [...] by 0.5 mg weekly - called to [facility] Percocet 10-325 mg oral tablet 06/19/2017 [...] doxycycline hyclate 100 mg oral capsule 07/03/2017 07/10/2017 take 1 capsule by oral route 2 times a day for 7 days Name Start Date [...] substance abuse disabeled Did not serve in [employer] rec[employer]BI Security Disability History of Procedures Date Ordered [...] C AB TEST Returned 05/21/2017 12:00 AM [facility] MEDICARE - flu vaccine administration Reviewed 05/21/2017 12:00 AM INFLUENZA VAC 4 VALENT PRSRV FREE 3 YRS PLUS IM Reviewed 10/09/2012 12:00 AM DRAIN/INJ JOINT/BURSA W/O US Reviewed 10/09/2012 12:00 AM Kenalog, Per 10 Mg [facility]#[id number] Reviewed 06/04/2013 12:00 AM Drug Screen (Medicare) [...] 12:00 AM SYNVISC-ONE, Per 1 Mg (6ml) [facility] [address]-84 Reviewed 05/06/2014 12:00 AM OFFICE/OUTPATIENT VISIT EST Reviewed 06/03/2014 12:00 AM DRAIN/INJ JOINT/BURSA W/O US Reviewed 06/03/2014 12:00 AM SYNVISC-ONE, Per 1 Mg (6ml) [facility] [address]-90 Reviewed 08/26/2014 12:00 AM RADIOLOGIC EXAM SACROILIAC JOINTS 3/MORE VIEWS Reviewed 01/20/2015 12:00 AM DRAIN/INJ JOINT/BURSA W/O US Reviewed 01/20/2015 12:00 AM SYNVISC-ONE, Per 1 Mg (6ml) [facility] [id number] Reviewed 02/24/2015 12:00 AM DRAIN/INJ JOINT/BURSA W/O US Reviewed 02/24/2015 12:00 AM SYNVISC-ONE, Per 1 Mg (6ml) [facility] [id number] Reviewed Results Summary Date and Description Results [...] Influenza 05/10/2016 sanofi pasteur PMC Fluzone Quadrivalent [id number] Intramuscular Left Upper Arm 05/10/2016 02/04/2015 141 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/2013 Unknown gate tender UNK Unknown 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 Unknown 06/21/2016 07/01/2017 [...] 2014 9:48AM Right Knee Pain Sep 11 2014 9:48AM Right Osteoarthritis, knee Worsening [...] region Feb 2015 1:55PM Radiculopathy, lumbar region b 2015 1:55PM Chronic Back Pain b 2015 1:55PM Essential Hypertension Aug 31 2015 1:18PM Hyperlipidemia Aug 30 2016 1:18PM Congestive Heart Failure Aug 30 2016 1:18PM Radiculopathy, lumbar region Aug 30 2016 1:18PM Chronic Back Pain Aug 30 2016 1:18PM Type 1 diabetes mellitus with complications Aug 31 2015 1:18PM Acquired hypothyroidism Aug 30 2016 1:18PM Screening for prostate cancer Aug 30 2016 1:18PM Acquired hypothyroidism Oct 03 2015 1:23PM [...] Number Policy Group Number Start Date Medicare [facility] Medicare [facility] [id number] Saturday, 2001 Medicare Part A Medicare - Lab/Xray [id number] Saturday, December 29, 2001 Medicare Part B Medicare Of [place] [id number] Saturday, December 29, 2001 Medicare Part A Medicare Part A [id number] Saturday, December 29, 2001 History of Encounters [...] visit Maribel ROBERTSP 05/17/2015 Office visit Maribel ValCharley Dariel ROBERTSP 04/25/2015 Office visit Maribel NealCharley Dariel ROBERTSP 03/28/2015 Office visit Maribel NealCharley Dariel ROBERTSP 02/24/2015 Office visit Maribel ValCharley Dariel ROBERTSP 01/20/2015 Office visit Maribel Faith Dariel ROBERTSP 12/23/2014 Office visit Maribel Faith Dariel ROBERTSP 11/25/2014 Office visit Maribel ROBERTSP 10/21/2014 Nurse visit Maribel ROBERTSP 09/29/2014 Office visit Maribel ValCharley Dariel ROBERTSP 08/26/2014 Office visit Maribel Faith Dariel ROBERTSP 07/29/2014 Nurse visit Maribel ROBERTSP 06/29/2014 Nurse visit Maribel ROBERTSP 06/03/2014 Office visit Maribel ValCharley Dariel ROBERTSP 05/06/2014 Nurse visit Maribel ValCharley Dariel ROBERTSP 04/08/2014 Nurse visit Maribel ROBERTSP 03/11/2014 Office visit Maribel ROBERTSP 02/11/2014 Office visit Maribel ROBERTSP 01/14/2014 Office visit Maribel ROEBRTSP 12/17/2013 Office visit Maribel ROBERTSP 11/19/2013 Office visit Maribel ROBERTSP 10/22/2013 Office visit Maribel GUARDADO 09/24/2013 Office visit Maribel ROBERTSP 08/27/2013 Office visit Maribel ROBERTSP 07/02/2013 Office visit Maribel GUARDADO 06/04/2013 Office visit Maribel GUARDADO 10/09/2012 Office visit Lloyd Oviedo MD 05/08/2010 Office visit Lloyd Oviedo MD 04/21/2010 Office visit Lloyd Oviedo MD
--- OUTSIDE RECORDS SUMMARY | 2018-07-23 10:52 | XMS REPORT ---
Author Author Maribel Vieira [facility] Address [address] [place], [place] [address] Care Team Providers Care Second Officer Name Role Phone Maribel Vieira PCP [...] subcutaneous solution 09/06/2015 INJECT 160 UNITS DAILY [facility] [id number] DXE11.43. potassium chloride 10 mEq oral tablet [...] OD). Wrote RX above per Ya at [facility]. carvedilol 12.5 mg oral tablet 01/09/2017 [...] Kenalog, Per 10 Mg [facility]#[id number] Reviewed 06/04/2013 12:00 AM Drug Screen (Medicare) [...] 1 Mg (6ml) [facility] [address]-73 Reviewed 05/06/2014 12:00 AM OFFICE/OUTPATIENT VISIT EST Reviewed 06/03/2014 12:00 AM DRAIN/INJ JOINT/BURSA W/O US Reviewed 06/03/2014 12:00 AM SYNVISC-ONE, Per 1 Mg (6ml) [facility] [address]-15 Reviewed 08/26/2014 12:00 AM RADIOLOGIC EXAM SACROILIAC JOINTS 3/MORE VIEWS Reviewed 01/20/2015 12:00 AM DRAIN/INJ JOINT/BURSA W/O US Reviewed 01/20/2015 12:00 AM SYNVISC-ONE, Per 1 Mg (6ml) [facility] [id number] Reviewed 02/24/2015 12:00 AM DRAIN/INJ JOINT/BURSA W/O US Reviewed 02/24/2015 12:00 AM SYNVISC-ONE, Per 1 Mg (6ml) [facility] [address]-01 Reviewed Results Summary Date and Description Results [...] Influenza 05/10/2016 sanofi pasteur PMC Fluzone Quadrivalent [id number] Intramuscular Left Upper Arm 05/10/2016 02/04/2015 141 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/2013 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 UNK Unknown 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 Unknown 06/21/2016 07/01/2017 [...] 1:37PM Chronic coughing Jan 16 2017 1:37PM Payers Insurance Name Company Name Plan Name Plan Number Policy Number Policy Group Number Start Date Medicare RHC Medicare RHC [id number] Saturday, 2001 Medicare Part A Medicare - Lab/Xray [id number] Saturday, December 29, 2001 Medicare Part B Medicare [place] [id number] Saturday, December 29, 2001 Medicare Part A Medicare Part A [id number] Saturday, December 29, 2001 History of Encounters Visit Date Visit Type Provider 01/16/2017 Office visit Maribel GUARDADO 12/19/2016 Office visit Maribel GUARDADO 12/03/2016 Laboratory Maribel GUARDADO 11/21/2016 Office visit Maribel ValCharley Dariel ROBERTSP 10/26/2016 Office visit Maribel M. Dariel ROBERTSP 10/04/2016 Office visit Maribel ValCharley Dariel ROBERTSP 09/28/2016 Office visit Maribel ValCharley Dariel ROBERTSP 09/26/2016 Office visit Maribel Vieira CONTRACT SHELTERED WORKSHOP SUPERVISOR 08/29/2016 Office visit Maribel ValCharley Dariel ROBERTSP 08/01/2016 Laboratory Maribel ValCharley Dariel CONTRACT SHELTERED WORKSHOP SUPERVISOR 07/04/2016 Office visit Maribel NealCharley Dariel ROBERTSP 06/07/2016 Laboratory Maribel Faith Dariel ROBERTSP 06/06/2016 Office visit Maribel Faith Dariel ROBERTSP 05/09/2016 Office visit Maribel ValCharley Dariel ROBERTSP 03/07/2016 Office visit Maribel ValCharley Dariel ROBERTSP 02/08/2016 Office visit Maribel ValCharley Dariel ROBERTSP 01/11/2016 Office visit Maribel M. Dariel ROBERTSP 12/14/2015 Office visit Maribel ValCharley Dariel ROBERTSP 11/14/2015 Office visit Maribel ROBERTSP 10/03/2015 Office visit Mariebl ROBERTSP 09/06/2015 Laboratory Maribel Faith Dariel ROBERTSP 08/31/2015 Office visit Maribel Faith Dariel ROBERTSP 08/03/2015 Office visit Maribel ValCharley Dariel ROBERTSP 07/06/2015 Office visit Maribel ROBERTSP [...]
--- OUTSIDE RECORDS SUMMARY | 2018-07-23 10:53 | XMS REPORT ---
Author Author Maribel Vieira [facility] Address [address] [place], [place] [address] Care Team Providers Care Strategic Partner Development Manager Name Role Phone Maribel Vieira PCP [...] AUTO W/O SCOPE Reviewed 05/10/2016 12:00 AM [facility] MEDICARE - [...] AM Kenalog, Per 10 Mg [facility]#1476-6874-35 Reviewed 06/04/2013 12:00 AM Drug Screen (Medicare) [...] Per 1 Mg (6ml) [facility] [address]-95 Reviewed 05/06/2014 12:00 AM OFFICE/OUTPATIENT VISIT EST Reviewed 06/03/2014 12:00 AM DRAIN/INJ JOINT/BURSA W/O US Reviewed 06/03/2014 12:00 AM SYNVISC-ONE, Per 1 Mg (6ml) [facility] [address]-54 Reviewed 08/26/2014 12:00 AM RADIOLOGIC EXAM SACROILIAC JOINTS 3/MORE VIEWS Reviewed 01/20/2015 12:00 AM DRAIN/INJ JOINT/BURSA W/O US Reviewed 01/20/2015 12:00 AM SYNVISC-ONE, Per 1 Mg (6ml) [facility] [address]-17 Reviewed 02/24/2015 12:00 AM DRAIN/INJ JOINT/BURSA W/O US Reviewed 02/24/2015 12:00 AM SYNVISC-ONE, Per 1 Mg (6ml) [facility] [address]-96 Reviewed Results Summary Data and Description Results [...] Influenza 05/10/2016 sanofi pasteur PMC Fluzone Quadrivalent [id number] Intramuscular Left Upper Arm 05/10/2016 02/04/2015 141 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/2013 Unknown button bradder UNK Unknown 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 Unknown 06/21/2016 07/01/2017 [...] Other chronic pain Feb 08 2016 1:22PM Payers Insurance Name Company Name Plan Name Plan Number Policy Number Policy Group Number Start Date Medicare RHC Medicare RHC [id number] Saturday, 2001 Medicare Part A Medicare - Lab/Xray [id number] Saturday, December 29, 2001 Medicare Part B Medicare [place] [id number] Saturday, December 29, 2001 Medicare Part A Medicare Part A [id number] Saturday, December 29, 2001 History of Encounters Visit Date Visit Type Provider 10/04/2016 Office visit Maribel GUARDADO 09/28/2016 Office visit Maribel GUARDADO 09/26/2016 Office visit Maribel GUARDADO 08/29/2016 Office visit Maribel GUARDADO 08/01/2016 Laboratory Maribel GUARDADO 07/04/2016 Office visit Maribel GUARDADO 06/07/2016 Laboratory Maribel GUARDADO 06/06/2016 Office visit aMribel GUARDADO 05/09/2016 Office visit Maribel GUARDADO 03/07/2016 Office visit Maribel ValCharley Dariel ROBERTSP 02/08/2016 Office visit Maribel ValCharley Dariel ROBERTSP 01/11/2016 Office visit Maribel NealCharley Dariel ROBERTSP 12/14/2015 Office visit Maribel ValCharley Dariel ROBERTSP 11/14/2015 Office visit Maribel M. Dariel ROBERTSP 10/03/2015 Office visit Maribel Vieira STEVEDORING SUPERVISOR 09/06/2015 Laboratory Maribel Vieira STEVEDORING SUPERVISOR 08/31/2015 Office visit Maribel ROBERTSP 08/03/2015 Office visit Maribel ValCharley Dariel ROBERTSP 07/06/2015 Office visit Maribel ValCharley Dariel ROBERTSP 06/09/2015 Nurse visit Maribel NealCharley Dariel ROBERTSP 05/17/2015 Office visit Maribel ROBERTSP 04/25/2015 Office visit Maribel NealCharley Dariel ROBERTSP 03/28/2015 Office visit Maribel ROBERTSP [...]
--- OUTSIDE RECORDS SUMMARY | 2018-07-23 10:54 | XMS REPORT ---
Author Author Maribel Vieira [facility] Address [address] [place], [place] [address] Care Team Providers Care Industrial Furnace Fabricator Name Role Phone Maribel Vieira PCP Elias [...] route 2 times per day with food risperidone 1 mg oral tablet 02/01/2016 04/01/2016 take 2 tablets by oral route daily for 60 days Ranexa 1,000 mg oral tablet extended release 12 hr 02/01/2016 take 1 tablet (1,000 mg) by oral route 2 times per day ramipril 10 mg oral capsule 02/01/2016 take 1 capsule (10 mg) by oral route once daily Ambien 10 mg oral tablet 02/08/2016 05/08/2016 take 1 tablet (10 mg) by oral route once daily at bedtime (for male) for 30 days Percocet 10-325 mg oral tablet 02/08/2016 03/09/2016 take 1 tablet by oral route every [...] HC BMI BSA BMI Percentile O2 Sat(%) 02/08/2016 1:18:00 PM 120 mmHg 74 mmHg [...] F 324 lbs 75.5 in 39.9622 kg/m 2.80 m2 02/11/2014 10:04:00 AM 144 mmHg 82 mmHg 60 bpm 16 rpm 97 F 319 lbs 75.5 in 39.35 kg/m2 2.7763 m 01/14/2014 10:04:00 AM 142 mmHg 80 mmHg 72 bpm 16 rpm 96.8 F 323 lbs 75.5 in 39.8389 kg/m 2.79 m2 12/17/2013 9:18:00 AM 124 mmHg 80 mmHg 84 bpm 16 rpm 97 F 319 lbs 75.5 in 39.35 kg/m2 2.7763 m 11/19/2013 10:10:00 AM 160 mmHg 90 mmHg 78 bpm 16 rpm 97 F 321 lbs 75 in 40.1218 kg/m 2.78 m2 10/22/2013 8:54:00 AM 152 mmHg 80 mmHg 84 bpm 18 rpm 96.8 F 332 lbs 75.5 in 40.95 kg/m2 2.8323 m 09/24/2013 8:33:00 AM 134 mmHg 80 mmHg 82 bpm 16 rpm 96 F 322.25 lbs 75.5 in 39.7464 kg/m 2.79 m2 08/27/2013 9:07:00 AM 108 mmHg 60 mmHg 72 bpm 16 rpm 325 lbs 75.5 in 40.09 kg/m2 2.8023 m 07/02/2013 10:25:00 AM 124 mmHg [...] 10/09/2012 12:00 AM Kenalog, Per 10 Mg [facility]#[id number] Reviewed 06/04/2013 12:00 AM Drug Screen (Medicare) [...] 1 Mg (6ml) [facility] [address]-85 Reviewed 05/06/2014 12:00 AM OFFICE/OUTPATIENT VISIT EST Reviewed 06/03/2014 12:00 AM DRAIN/INJ JOINT/BURSA W/O US Reviewed 06/03/2014 12:00 AM SYNVISC-ONE, Per 1 Mg (6ml) [facility] [address]-35 Reviewed 08/26/2014 12:00 AM RADIOLOGIC EXAM SACROILIAC JOINTS 3/MORE VIEWS Returned 01/20/2015 12:00 AM DRAIN/INJ JOINT/BURSA W/O US Reviewed 01/20/2015 12:00 AM SYNVISC-ONE, Per 1 Mg (6ml) [facility] [address]-59 Returned 02/24/2015 12:00 AM DRAIN/INJ JOINT/BURSA W/O US Reviewed 02/24/2015 12:00 AM SYNVISC-ONE, Per 1 Mg (6ml) [facility] [address]-72 Returned Results Summary Data and Description Results [...] CELLS NEGATIVE / HPFTRICHOMONAS NEGATIVE YEAST NEGATIVE 02/08/2016 2:30 PM COLOR YELLOW APPEARANCE CLEAR SPEC GRAV 1.010 pH 5.5 PROTEIN NEGATIVE GLUCOSE NEGATIVE mg/dLKETONE NEGATIVE BILIRUBIN NEGATIVE BLOOD TRACE-INTACT NITRITE NEGATIVE LEUK SCREEN NEGATIVE CASTS/LPF NEGATIVE / LPFCRYSTALS NEGATIVE MUCOUS THRDS NEGATIVE BACTERIA NEGATIVE EPITH [...] Chronic back pain Feb 08 2016 3:31PM Payers Insurance Name Company Name Plan Name Plan Number Policy Number Policy Group Number Start Date Medicare Part A Medicare [facility] [id number] Saturday, 2001 Medicare Part A Medicare - Lab/Xray [id number] Saturday, December 29, 2001 Medicare Part B Medicare Of [place] [id number] Saturday, December 29, 2001 Medicare Part A Medicare Part A [id number] Saturday, December 29, 2001 History of Encounters Visit Date Visit Type Provider 02/08/2016 Office visit Maribel GUARDADO 01/11/2016 Office [...] visit Maribel GUARDADO 11/25/2014 Office visit Maribel Vianney ROBERTSP 10/21/2014 Nurse visit Maribel NealCharley Dariel ROBERTSP 09/29/2014 Office visit Maribel ROBERTSP 08/26/2014 Office visit Maribel ROBERTSP 07/29/2014 Nurse visit Maribel ValCharley Dariel [...]
--- OUTSIDE RECORDS SUMMARY | 2018-07-23 10:55 | XMS REPORT ---
Author Author Maribel Vieira [facility] Address [address] [place], [place] [address] Care Team Providers Care Certified Alcohol Drug Counselor Name Role Phone Maribel Vieira PCP Elias Malagon Unavailable Unavailable Deborah Linares Unavailable Unavailable Allergies and Adverse Reactions Name Reaction Notes PENICILLINS Plan of Treatment Planned Activity Comments Planned Date Planned Time Plan/Goal Lipid profile 09/06/2015 12:00 AM GENERAL HEALTH PANEL 09/06/2015 12:00 AM PSA TOTAL 09/06/2015 12:00 AM T1DM - insulin pump -current provider retiring needing new provider Medications Active Name Start Date Estimated Completion [...] each nostril by intranasal route once daily Leandra Perles 100 mg oral capsule 06/07/2016 take 1 capsule (100 mg) by oral route 3 times per day as needed for cough ramipril 10 mg oral capsule 07/30/2016 TAKE [...] HC BMI BSA BMI Percentile O2 Sat(%) 09/26/2016 2:14:00 PM 140 mmHg 88 mmHg [...] AUTO W/O SCOPE Reviewed 05/10/2016 12:00 AM C MEDICARE - flu vaccine administration Reviewed 05/10/2016 [...] Kenalog, Per 10 Mg [facility]#2315-6314-27 Reviewed 06/04/2013 12:00 AM Drug Screen (Medicare) [...] 1 Mg (6ml) [facility] [address]-10 Reviewed 05/06/2014 12:00 AM OFFICE/OUTPATIENT VISIT EST Reviewed 06/03/2014 12:00 AM DRAIN/INJ JOINT/BURSA W/O US Reviewed 06/03/2014 12:00 AM SYNVISC-ONE, Per 1 Mg (6ml) [facility] [address]-29 Reviewed 08/26/2014 12:00 AM RADIOLOGIC EXAM SACROILIAC JOINTS 3/MORE VIEWS Reviewed 01/20/2015 12:00 AM DRAIN/INJ JOINT/BURSA W/O US Reviewed 01/20/2015 12:00 AM SYNVISC-ONE, Per 1 Mg (6ml) [facility] [address]-43 Reviewed 02/24/2015 12:00 AM DRAIN/INJ JOINT/BURSA W/O US Reviewed 02/24/2015 12:00 AM SYNVISC-ONE, Per 1 Mg (6ml) [facility] [address]-03 Reviewed Results Summary Data and Description Results [...] Vis Given Vis Pub CVX Influenza 05/10/2016 taina turner PMC Fluzone Quadrivalent [id number] Intramuscular Left Upper Arm 05/10/2016 02/04/2015 141 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/2013 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 Unknown 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 Unknown 06/21/2016 07/01/2016 [...] Other chronic pain Aug 29 2016 1:20PM Payers Insurance Name Company Name Plan Name Plan Number Policy Number Policy Group Number Start Date Medicare RHC Medicare RHC [id number] Saturday, 2001 Medicare Part A Medicare - Lab/Xray [id number] Saturday, December 29, 2001 Medicare Part B Medicare Of [place] [id number] Saturday, December 29, 2001 Medicare Part A Medicare Part A [id number] Saturday, December 29, 2001 History of Encounters Visit Date Visit Type Provider 09/26/2016 Office visit Maribel GUARDADO 08/29/2016 Office visit Maribel GUARDADO 08/01/2016 Laboratory Maribel GUARDADO 07/04/2016 Office visit Maribel GUARDADO 06/07/2016 Laboratory Maribel GUARDADO 06/06/2016 Office visit Maribel Faith Dariel ROBERTSP 05/09/2016 Office visit Maribel NealCharley Dariel ROBERTSP 03/07/2016 Office visit Maribel ValCharley Dariel ROBERTSP 02/08/2016 Office visit Maribel ValCharley Dariel ROBERTSP 01/11/2016 Office visit Maribel Faith Dariel ROBERTSP 12/14/2015 Office visit Maribel NealCharley Dariel ROBERTSP 11/14/2015 Office visit Maribel ROBERTSP 10/03/2015 Office visit Maribel ROBERTSP 09/06/2015 Laboratory Maribel Vieira HIGH RISK CASE MANAGER 08/31/2015 Office visit Maribel ValCharley Dariel ROBERTSP 08/03/2015 Office visit Maribel ROBERTSP 07/06/2015 Office visit Maribel ROBERTSP 06/09/2015 Nurse visit Maribel NealCharley Dariel ROBERTSP 05/17/2015 Office visit Maribel NealCharley Dariel [...]
--- OUTSIDE RECORDS SUMMARY | 2018-07-23 10:57 | XMS REPORT ---
Author Author Maribel Vieira [facility] Address [address] [place], [place] [address] Care Team Providers Care Brokerage Branch Manager Name Role Phone Maribel Vieira PCP Allergies [...] 30 DAYS Neurontin 300 mg oral capsule 12/07/2014 TAKE 2 CAPSULES (600 MG) BY ORAL ROUTE 3 TIMES PER DAY FOR 30 DAYS Voltaren 1 % topical gel 12/23/2014 apply 2 gram to the affected area(s) by topical route 4 times per day Percocet 10-325 mg oral tablet 02/24/2015 03/26/2015 take 1 tablet by oral route every 6 hours as needed for 30 days morphine 15 mg oral tablet extended release 02/24/2015 03/26/2015 Take 30 mg in the morning and 15 mg in the evening. Synvisc-One 48 mg/6 mL intra-articular syringe 02/24/2015 inject 6 milliliters by intra-articular route into the left knee Name Start Date Expiration Date SIG Comments [...] HC BMI BSA BMI Percentile O2 Sat(%) 02/24/2015 8:20:00 AM 140 mmHg 80 mmHg [...] Per 10 Mg [facility]#9007-6732-98 Reviewed 06/04/2013 12:00 AM Drug Screen (Medicare) [...] 1 Mg (6ml) [facility] [address]-32 Reviewed 05/06/2014 12:00 AM OFFICE/OUTPATIENT VISIT EST Reviewed 06/03/2014 12:00 AM DRAIN/INJ JOINT/BURSA W/O US Reviewed 06/03/2014 12:00 AM SYNVISC-ONE, Per 1 Mg (6ml) [facility] [address]-63 Reviewed 08/26/2014 12:00 AM RADIOLOGIC EXAM SACROILIAC JOINTS 3/MORE VIEWS Returned 01/20/2015 12:00 AM DRAIN/INJ JOINT/BURSA W/O US Reviewed 02/24/2015 12:00 AM DRAIN/INJ JOINT/BURSA W/O US Reviewed Results Summary Data and Description Results [...] Right Pain, knee Feb 24 2015 8:21AM Payers Insurance Name Company Name Plan Name Plan Number Policy Number Policy Group Number Start Date Medicare Part B Medicare [place] [id number] Saturday, 2001 History of Encounters Visit Date Visit Type Provider 02/24/2015 Office visit Maribel GUARDADO 01/20/2015 Office [...] visit Maribel GUARDADO 11/19/2013 Office visit Maribel ROBERTSP 10/22/2013 Office visit Maribel ROBERTSP 09/24/2013 Office visit Maribel ROBERTSP 08/27/2013 Office visit Maribel ROBERTSP 07/02/2013 Office visit Maribel ROBERTSP 06/04/2013 Office visit Maribel ROBERTSP 10/09/2012 Office visit Lloyd Oviedo MD 05/08/2010 Office visit Lloyd Oviedo MD 04/21/2010 Office visit Lloyd Oviedo MD
--- OUTSIDE RECORDS SUMMARY | 2018-07-23 10:57 | XMS REPORT ---
Author Author Maribel Vieira [facility] Address [address] [place], [place] [id number] Care Team Providers Care Dispute Resolution Specialist Name Role Phone Maribel Vieira PCP Elias [...] SCOPE Reviewed 05/10/2016 12:00 AM [facility] MEDICARE - flu vaccine administration Reviewed 05/10/2016 [...] AM Kenalog, Per 10 Mg [facility]#[id number] Reviewed 06/04/2013 12:00 AM Drug Screen (Medicare) [...] SYNVISC-ONE, Per 1 Mg (6ml) [facility] [id number] Reviewed 05/06/2014 12:00 AM OFFICE/OUTPATIENT VISIT EST Reviewed 06/03/2014 12:00 AM DRAIN/INJ JOINT/BURSA W/O US Reviewed 06/03/2014 12:00 AM SYNVISC-ONE, Per 1 Mg (6ml) [facility] [id number] Reviewed 08/26/2014 12:00 AM RADIOLOGIC EXAM SACROILIAC JOINTS 3/MORE VIEWS Reviewed 01/20/2015 12:00 AM DRAIN/INJ JOINT/BURSA W/O US Reviewed 01/20/2015 12:00 AM SYNVISC-ONE, Per 1 Mg (6ml) [facility] [id number] Reviewed 02/24/2015 12:00 AM DRAIN/INJ JOINT/BURSA W/O US Reviewed 02/24/2015 12:00 AM SYNVISC-ONE, Per 1 Mg (6ml) [facility] [id number] Reviewed Results Summary Data and Description Results [...] Influenza 05/10/2016 sanofi pasteur PMC Fluzone Quadrivalent [id number] Intramuscular Left Upper Arm 05/10/2016 02/04/2015 141 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 Unknown 06/21/2016 07/01/2017 [...] Other chronic pain Oct 26 2016 10:25AM Payers Insurance Name Company Name Plan Name Plan Number Policy Number Policy Group Number Start Date Medicare RHC Medicare RHC [id number] Saturday, 2001 Medicare Part A Medicare - Lab/Xray [id number] Saturday, December 29, 2001 Medicare Part B Medicare Of [place] [id number] Saturday, December 29, 2001 Medicare Part A Medicare Part A [id number] Saturday, December 29, 2001 History of Encounters Visit Date Visit Type Provider 10/26/2016 Office visit Maribel Vianney ROBERTSP 10/04/2016 Office visit Maribel ROBERTSP 09/28/2016 Office visit Maribel ROBERTSP 09/26/2016 Office visit Maribel ROBERTSP 08/29/2016 Office visit Maribel NealCharley Dariel ROBERTSP 08/01/2016 Laboratory Maribel Vianney ROBERTSP 07/04/2016 Office visit Maribel ROBERTSP 06/07/2016 Laboratory Maribel Vianney ROBERTSP 06/06/2016 Office visit Maribel ROBERTSP 05/09/2016 Office visit Maribel ValCharley Dariel ROBERTSP 03/07/2016 Office visit Maribel ROBERTSP 02/08/2016 Office visit Maribel ROBERTSP 01/11/2016 Office visit Maribel ROBERTSP 12/14/2015 Office visit Maribel ROBERTSP 11/14/2015 Office visit Maribel ROBERTSP 10/03/2015 Office visit Maribel ROBERTSP 09/06/2015 Laboratory Maribel ROBERTSP 08/31/2015 Office visit Maribel ROBERTSP 08/03/2015 Office visit Maribel Vianney ROBERTSP [...] visit Maribel ROBERTSP 03/11/2014 Office visit Maribel Vieira [facility] 02/11/2014 Office visit Maribel Vieira [facility] 01/14/2014 Office visit Maribel Vieira [facility] 12/17/2013 Office visit Maribel Vieira [facility] 11/19/2013 Office visit Maribel Vieira [facility] 10/22/2013 Office visit Maribel Vieira [facility] 09/24/2013 Office visit Marbiel Vieira [facility] 08/27/2013 Office visit Maribel Vieira [facility] 07/02/2013 Office visit Maribel Vieira [facility] 06/04/2013 Office visit Maribel Vieira [facility] 10/09/2012 Office visit Lloyd Oviedo MD 05/08/2010 Office visit Lloyd Oviedo MD 04/21/2010 Office visit Lloyd Oviedo MD
--- OUTSIDE RECORDS SUMMARY | 2018-07-23 10:58 | XMS REPORT ---
Author Author Maribel Vieira [facility] Address [address] [place], [place] [phone] Care Team Providers Care Dope Firer Name Role Phone Maribel Vieira PCP Elias [...] by oral route daily for 60 days morphine 15 mg oral tablet extended release 08/03/2015 09/02/2015 take 1 tablet (15 mg) by oral route every 8 hours for 30 days Percocet 10-325 mg oral tablet 08/03/2015 09/02/2015 take 1 tablet by oral route every 8 hours as needed for 30 days gabapentin 300 mg oral capsule 08/11/2015 TAKE 2 CAPSULES BY MOUTH THREE TIMES DAILY Name Start [...] HC BMI BSA BMI Percentile O2 Sat(%) 08/03/2015 1:49:00 PM 132 mmHg 72 mmHg [...] 12:00 AM Kenalog, Per 10 Mg [facility][id number] Reviewed 06/04/2013 12:00 AM Drug Screen (Medicare) [...] AM SYNVISC-ONE, Per 1 Mg (6ml) [facility] [id number] Reviewed 05/06/2014 12:00 AM OFFICE/OUTPATIENT VISIT EST Reviewed 06/03/2014 12:00 AM DRAIN/INJ JOINT/BURSA W/O US Reviewed 06/03/2014 12:00 AM SYNVISC-ONE, Per 1 Mg (6ml) [facility] [id number] Reviewed 08/26/2014 12:00 AM RADIOLOGIC EXAM SACROILIAC JOINTS 3/MORE VIEWS Returned 01/20/2015 12:00 AM DRAIN/INJ JOINT/BURSA W/O US Reviewed 01/20/2015 12:00 AM SYNVISC-ONE, Per 1 Mg (6ml) [facility] [id number] Returned 02/24/2015 12:00 AM DRAIN/INJ JOINT/BURSA W/O US Reviewed 02/24/2015 12:00 AM SYNVISC-ONE, Per 1 Mg (6ml) [facility] [id number] Returned Results Summary Data and Description Results [...] visits with endocrinology - Elias Malagon NP Osteoarthrosis, lower leg Oct 09 2012 9:26AM [...] Chronic Back Pain Aug 03 2015 1:55PM Payers Insurance Name Company Name Plan Name Plan Number Policy Number Policy Group Number Start Date Medicare Part A Medicare Part A [id number] Saturday, 2001 Medicare Part B Medicare Of [place] [id number] Saturday, 2001 History of Encounters Visit Date Visit Type Provider 08/03/2015 Office visit Maribel GUARDADO 07/06/2015 Office visit Maribel GUARDADO 06/09/2015 Nurse visit Maribel GUARDADO 05/17/2015 Office visit Maribel GUARDADO 04/25/2015 Office visit Maribel GUARDADO 03/28/2015 Office visit Maribel GUARDADO 02/24/2015 Office visit Maribel GUARDADO 01/20/2015 Office visit Maribel GUARDADO 12/23/2014 Office visit Maribel GUARDADO 11/25/2014 Office visit Marible GUARDADO 10/21/2014 Nurse visit Maribel GUARDADO 09/29/2014 Office visit Maribel GUARDADO 08/26/2014 Office visit Maribel GUARDADO 07/29/2014 Nurse visit Maribel GUARDADO 06/29/2014 Nurse visit Maribel GUARDADO 06/03/2014 Office visit Maribel GUARDADO 05/06/2014 Nurse visit Maribel GUARDADO 04/08/2014 Nurse visit Maribel GUARDADO 03/11/2014 Office visit Maribel GUARDADO 02/11/2014 Office visit Maribel GUARDADO 01/14/2014 Office visit Maribel GUARDADO 12/17/2013 Office visit Maribel GURADADO 11/19/2013 Office visit Maribel GUARDADO 10/22/2013 Office visit Maribel GUARDADO 09/24/2013 Office visit Maribel GUARDADO 08/27/2013 Office visit Maribel GUARDADO 07/02/2013 Office visit Maribel GUARDADO 06/04/2013 Office visit Maribel GUARDADO 10/09/2012 Office visit Lloyd Oviedo MD 05/08/2010 Office visit Lloyd Oviedo MD 04/21/2010 Office visit Lloyd Oviedo MD
--- OUTSIDE RECORDS SUMMARY | 2018-07-23 10:59 | XMS REPORT ---
Author Author Maribel Vieira [facility] Address [address] [place], [place] [address] Care Team Providers Care Pewter Finisher Name Role Phone Maribel Vieira PCP Elias [...] 10/09/2012 12:00 AM Kenalog, Per 10 Mg [facility]#[id number] Reviewed 06/04/2013 12:00 AM Drug Screen (Medicare) [...] 12:00 AM SYNVISC-ONE, Per 1 Mg (6ml) [facility] [id number] Reviewed 05/06/2014 12:00 AM OFFICE/OUTPATIENT VISIT EST Reviewed 06/03/2014 12:00 AM DRAIN/INJ JOINT/BURSA W/O US Reviewed 06/03/2014 12:00 AM SYNVISC-ONE, Per 1 Mg (6ml) [facility] [id number] Reviewed 08/26/2014 12:00 AM RADIOLOGIC EXAM SACROILIAC JOINTS 3/MORE VIEWS Reviewed 01/20/2015 12:00 AM DRAIN/INJ JOINT/BURSA W/O US Reviewed 01/20/2015 12:00 AM SYNVISC-ONE, Per 1 Mg (6ml) [facility] [id number] Reviewed 02/24/2015 12:00 AM DRAIN/INJ JOINT/BURSA W/O US Reviewed 02/24/2015 12:00 AM SYNVISC-ONE, Per 1 Mg (6ml) [facility] [id number] Reviewed Results Summary Data and Description Results [...] Influenza 05/10/2016 taina turner PMC Fluzone Quadrivalent [id number] Intramuscular Left Upper Arm 05/10/2016 02/04/2015 141 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
--- OUTSIDE RECORDS SUMMARY | 2018-07-23 11:00 | XMS REPORT ---
Author Author Maribel Vieira [facility] Address [address] [place], [place] [address] Care Team Providers Care Site Engineer Name Role Phone Maribel Vieira PCP [...] substance abuse disabeled Did not serve in [employer] Disability History of Procedures Date Ordered Description [...] AUTO W/O SCOPE Reviewed 05/10/2016 12:00 AM [facility] MEDICARE - flu vaccine administration [...] Kenalog, Per 10 Mg [facility]#[id number] Reviewed 06/04/2013 12:00 AM Drug Screen (Medicare) [...] Per 1 Mg (6ml) [facility] [id number] Reviewed 05/06/2014 12:00 AM OFFICE/OUTPATIENT VISIT EST Reviewed 06/03/2014 12:00 AM DRAIN/INJ JOINT/BURSA W/O US Reviewed 06/03/2014 12:00 AM SYNVISC-ONE, Per 1 Mg (6ml) [facility] [id number] Reviewed 08/26/2014 12:00 AM RADIOLOGIC EXAM SACROILIAC JOINTS 3/MORE VIEWS Reviewed 01/20/2015 12:00 AM DRAIN/INJ JOINT/BURSA W/O US Reviewed 01/20/2015 12:00 AM SYNVISC-ONE, Per 1 Mg (6ml) [facility] [id number] Reviewed 02/24/2015 12:00 AM DRAIN/INJ JOINT/BURSA W/O US Reviewed 02/24/2015 12:00 AM SYNVISC-ONE, Per 1 Mg (6ml) [facility] [id number] Reviewed Results Summary Date and Description Results [...] Given Vis Pub CVX Influenza 05/10/2016 [facility] PMC Fluzone Quadrivalent [id number] Intramuscular Left Upper Arm 05/10/2016 02/04/2015 141 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 Unknown 06/21/2016 [...] Number Start Date Medicare RHC Medicare RHC [id number] Saturday, 2001 Medicare Part A Medicare - Lab/Xray [id number] Saturday, December 29, 2001 Medicare Part B Medicare Of [place] [id number] Saturday, December 29, 2001 Medicare Part A Medicare Part A [id number] Saturday, December 29, 2001 History of Encounters Visit Date Visit Type Provider 12/03/2016 Laboratory Maribel GUARDADO 11/21/2016 Office visit Maribel GUARDADO 10/26/2016 Office visit Maribel GUARDADO 10/04/2016 Office visit Maribel GUARDADO 09/28/2016 Office visit Maribel GUARDADO 09/26/2016 Office visit Maribel GUARDADO 08/29/2016 Office visit Maribel GUARDADO 08/01/2016 Laboratory Marbiel GUARDADO 07/04/2016 Office visit Maribel GUARDADO 06/07/2016 Laboratory Maribel GUARDADO 06/06/2016 Office visit Maribel GUARDADO 05/09/2016 Office visit Maribel GUARDADO 03/07/2016 Office visit Maribel GUARDADO 02/08/2016 Office visit Maribel GUARDADO 01/11/2016 Office visit Maribel GUARDADO 12/14/2015 Office visit Maribel GUARDADO 11/14/2015 Office visit Maribel GUARDADO 10/03/2015 Office visit Maribel Vieira CANDY MIXER 09/06/2015 Laboratory Maribel Vieira CANDY MIXER 08/31/2015 Office visit Maribel M. Dariel ROBERTSP 08/03/2015 Office visit Maribel M. Dariel ROBERTSP 07/06/2015 Office visit Maribel M. Dariel ROBERTSP 06/09/2015 Nurse visit Maribel Faith Dariel ROBERTSP 05/17/2015 Office visit Maribel Faith Dariel ROBERTSP 04/25/2015 Office visit Maribel ValCharley Dariel ROBERTSP 03/28/2015 Office visit Maribel M. Dariel ROBERTSP 02/24/2015 Office visit Maribel Faith Dariel ROBERTSP 01/20/2015 Office visit Maribel Vieira CANDY MIXER 12/23/2014 Office visit Maribel M. Dariel ROBERTSP [...]
--- OUTSIDE RECORDS SUMMARY | 2018-07-23 11:01 | XMS REPORT ---
Author Author Maribel Vieira [facility] Address [address] [place], [place] [address] Care Team Providers Care Crop Insurance Claims Adjuster Name Role Phone Maribel Vieira PCP Elias [...] AUTO W/O SCOPE Reviewed 05/10/2016 12:00 AM [facility] MEDICARE - flu vaccine administration Reviewed 05/10/2016 [...] 10/09/2012 12:00 AM Kenalog, Per 10 Mg [facility]#[id number] Reviewed 06/04/2013 12:00 AM Drug Screen (Medicare) [...] 12:00 AM SYNVISC-ONE, Per 1 Mg (6ml) [facility] [address]-53 Reviewed 05/06/2014 12:00 AM OFFICE/OUTPATIENT VISIT EST Reviewed 06/03/2014 12:00 AM DRAIN/INJ JOINT/BURSA W/O US Reviewed 06/03/2014 12:00 AM SYNVISC-ONE, Per 1 Mg (6ml) [facility] [id number] Reviewed 08/26/2014 12:00 AM RADIOLOGIC EXAM SACROILIAC JOINTS 3/MORE VIEWS Reviewed 01/20/2015 12:00 AM DRAIN/INJ JOINT/BURSA W/O US Reviewed 01/20/2015 12:00 AM SYNVISC-ONE, Per 1 Mg (6ml) [facility] [id number] Reviewed 02/24/2015 12:00 AM DRAIN/INJ JOINT/BURSA W/O US Reviewed 02/24/2015 12:00 AM SYNVISC-ONE, Per 1 Mg (6ml) [facility] [id number] Reviewed Results Summary Data and Description Results [...] Influenza 05/10/2016 sanofi pasteur PMC Fluzone Quadrivalent [id number] Intramuscular Left Upper Arm 05/10/2016 02/04/2015 141 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 Unknown 06/21/2016 07/01/2017 [...] of left knee Oct 04 2016 2:17PM Payers Insurance Name Company Name Plan Name Plan Number Policy Number Policy Group Number Start Date Medicare RHC Medicare RHC [id number] Saturday, 2001 Medicare Part A Medicare - Lab/Xray [id number] Saturday, December 29, 2001 Medicare Part B Medicare Of [place] [id number] Saturday, December 29, 2001 Medicare Part A Medicare Part A [id number] Saturday, December 29, 2001 History of Encounters [...] visit Maribel GUARDADO 02/08/2016 Office visit Maribel Faith Dariel ROBERTSP 01/11/2016 Office visit Maribel Faith Dariel ROBERTSP 12/14/2015 Office visit Maribel ROBERTSP 11/14/2015 Office visit Maribel ValCharley Dariel ROBERTSP 10/03/2015 Office visit Maribel ValCharley Dariel ROBERTSP 09/06/2015 Laboratory Maribel ValCharley Dariel ROBERTSP 08/31/2015 Office visit Maribel ValCharley Dariel ROBERTSP 08/03/2015 Office visit Maribel ROBERTSP 07/06/2015 Office visit Maribel ROBERTSP 06/09/2015 Nurse visit Maribel ValCharley Dariel ROBERTSP 05/17/2015 Office visit Maribel M. Dariel ROBERTSP 04/25/2015 Office visit Maribel ROBERTSP 03/28/2015 Office visit Maribel ROBERTSP 02/24/2015 Office visit Maribel ValCharley Dariel ROBERTSP 01/20/2015 Office visit Maribel ValCharley Dariel ROBERTSP 12/23/2014 Office visit Maribel ROBERTSP 11/25/2014 Office visit Maribel ROBERTSP 10/21/2014 Nurse visit Maribel ROBERTSP 09/29/2014 Office visit Maribel ValCharley Dariel ROBERTSP 08/26/2014 Office visit Maribel ValCharley Dariel ROBERTSP 07/29/2014 Nurse visit Maribel ROBERTSP 06/29/2014 Nurse visit Maribel ROBERTSP 06/03/2014 Office visit Maribel NealCharley Dariel ROBERTSP 05/06/2014 Nurse visit Maribel ROBERTSP 04/08/2014 [...]
--- OUTSIDE RECORDS SUMMARY | 2018-07-23 11:03 | XMS REPORT ---
Author Author Maribel Vieira [facility] Address [address] [place], [place] [id number] Care Team Providers Care Payroll Accountant Name Role Phone Maribel Vieira PCP Elias [...] SCOPE Reviewed 05/10/2016 12:00 AM [facility] MEDICARE - flu vaccine administration Reviewed 05/10/2016 12:00 AM INFLUENZA VACCINE QUADRIVALENT 3 YRS PLUS IM Reviewed 06/06/2016 12:00 AM CHEST X-RAY 2VW FRONTAL&LATL Returned 10/09/2012 12:00 AM DRAIN/INJ JOINT/BURSA W/O US Reviewed 10/09/2012 12:00 AM Kenalog, Per 10 Mg [facility]#[id number] Reviewed 06/04/2013 12:00 AM Drug Screen (Medicare) [...] SYNVISC-ONE, Per 1 Mg (6ml) [facility] [id number] Reviewed 05/06/2014 12:00 AM OFFICE/OUTPATIENT VISIT EST Reviewed 06/03/2014 12:00 AM DRAIN/INJ JOINT/BURSA W/O US Reviewed 06/03/2014 12:00 AM SYNVISC-ONE, Per 1 Mg (6ml) [facility] [id number] Reviewed 08/26/2014 12:00 AM RADIOLOGIC EXAM SACROILIAC JOINTS 3/MORE VIEWS Reviewed 01/20/2015 12:00 AM DRAIN/INJ JOINT/BURSA W/O US Reviewed 01/20/2015 12:00 AM SYNVISC-ONE, Per 1 Mg (6ml) [facility] [address]-60 Reviewed 02/24/2015 12:00 AM DRAIN/INJ JOINT/BURSA W/O US Reviewed 02/24/2015 12:00 AM SYNVISC-ONE, Per 1 Mg (6ml) [facility] [address]-28 Reviewed Results Summary Data and Description Results [...] Influenza 05/10/2016 sanofi pasteur PMC Fluzone Quadrivalent [id number] Intramuscular Left Upper Arm 05/10/2016 02/04/2015 141 [...] Number Start Date Medicare Part A Medicare [facility] [id number] Saturday, 2001 Medicare Part A Medicare - Lab/Xray [id number] Saturday, December 29, 2001 Medicare Part B Medicare Of [place] [id number] Saturday, December 29, 2001 Medicare Part A Medicare Part A [id number] Saturday, December 29, 2001 History of Encounters [...]
--- OUTSIDE RECORDS SUMMARY | 2018-07-23 11:04 | XMS REPORT ---
Author Author Maribel Vieira [facility] Address [address] [place], [place] [address] Care Team Providers Care Medical Staff Director Name Role Phone Maribel Vieira PCP Elias [...] times per day as needed for cough Percocet 10-325 mg oral tablet 07/04/2016 08/03/2016 take 1 tablet by oral route every 6 hours as needed for 30 days Ambien 10 mg oral tablet 07/04/2016 10/02/2016 take 1 tablet (10 mg) by oral route once daily at bedtime (for male) for 30 days Name Start Date Expiration [...] 10/09/2012 12:00 AM Kenalog, Per 10 Mg [facility]#[id number] Reviewed 06/04/2013 12:00 AM Drug Screen (Medicare) [...] 12:00 AM SYNVISC-ONE, Per 1 Mg (6ml) [facility] [id number] Reviewed 05/06/2014 12:00 AM OFFICE/OUTPATIENT VISIT EST Reviewed 06/03/2014 12:00 AM DRAIN/INJ JOINT/BURSA W/O US Reviewed 06/03/2014 12:00 AM SYNVISC-ONE, Per 1 Mg (6ml) [facility] [id number] Reviewed 08/26/2014 12:00 AM RADIOLOGIC EXAM SACROILIAC JOINTS 3/MORE VIEWS Reviewed 01/20/2015 12:00 AM DRAIN/INJ JOINT/BURSA W/O US Reviewed 01/20/2015 12:00 AM SYNVISC-ONE, Per 1 Mg (6ml) [facility] [id number] Reviewed 02/24/2015 12:00 AM DRAIN/INJ JOINT/BURSA W/O US Reviewed 02/24/2015 12:00 AM SYNVISC-ONE, Per 1 Mg (6ml) [facility] [id number] Reviewed Results Summary Data and Description Results [...] Influenza 05/10/2016 sanofi pasteur PMC Fluzone Quadrivalent [id number] Intramuscular Left Upper Arm 05/10/2016 02/04/2015 141 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 Unknown 06/21/2016 07/01/2016 [...] 9:48AM Postlaminectomy syndrome of lumbar region Sep 11 2014 9:48AM Cervical Radiculopathy Mar 11 [...] Other chronic pain Jul 04 2016 1:24PM Payers Insurance Name Company Name Plan Name Plan Number Policy Number Policy Group Number Start Date Medicare Part A Medicare [facility] [id number] Saturday, 2001 Medicare Part A Medicare - Lab/Xray [id number] Saturday, December 29, 2001 Medicare Part B Medicare Of [place] [id number] Saturday, December 29, 2001 Medicare Part A Medicare Part A [id number] Saturday, December 29, 2001 History of Encounters Visit Date Visit Type Provider 07/04/2016 Office visit Maribel ROBERTSP 06/07/2016 Laboratory [...]
--- OUTSIDE RECORDS SUMMARY | 2018-07-23 11:05 | XMS REPORT ---
Author Author Maribel Vieira [facility] Address [address] [place], [place] [address] Care Team Providers Care Bone Char Kiln Tender Name Role Phone Maribel Vieira PCP Allergies [...] morphine 15 mg oral tablet extended release 06/09/2015 07/09/2015 take 1 tablet (15 mg) by oral route every 8 hours for 30 days Percocet 10-325 mg oral tablet 06/09/2015 07/09/2015 take 1 tablet by oral route every [...] 12:00 AM Kenalog, Per 10 Mg [facility]#[id number] Reviewed 06/04/2013 12:00 AM Drug Screen (Medicare) [...] AM SYNVISC-ONE, Per 1 Mg (6ml) [facility] [address]-60 Reviewed 05/06/2014 12:00 AM OFFICE/OUTPATIENT VISIT EST Reviewed 06/03/2014 12:00 AM DRAIN/INJ JOINT/BURSA W/O US Reviewed 06/03/2014 12:00 AM SYNVISC-ONE, Per 1 Mg (6ml) [facility] [address]-05 Reviewed 08/26/2014 12:00 AM RADIOLOGIC EXAM SACROILIAC JOINTS 3/MORE VIEWS Returned 01/20/2015 12:00 AM DRAIN/INJ JOINT/BURSA W/O US Reviewed 01/20/2015 12:00 AM SYNVISC-ONE, Per 1 Mg (6ml) [facility] [address]-69 Returned 02/24/2015 12:00 AM DRAIN/INJ JOINT/BURSA W/O US Reviewed 02/24/2015 12:00 AM SYNVISC-ONE, Per 1 Mg (6ml) [facility] [id number] Returned Results Summary Data and Description Results [...] Chronic pain syndrome Jun 09 2015 8:22AM Payers Insurance Name Company Name Plan Name Plan Number Policy Number Policy Group Number Start Date Medicare Part B Medicare Of [place] [id number] Saturday, 2001 History of Encounters Visit Date Visit Type Provider 06/09/2015 Nurse visit Maribel GUARDADO 05/17/2015 Office [...]
--- OUTSIDE RECORDS SUMMARY | 2018-07-23 11:05 | XMS REPORT ---
Author Author Maribel Vieira [facility] Address [address] [place], [place] [address] Care Team Providers Care Charge Weigher Name Role Phone Maribel Vieira PCP Allergies [...] Per 10 Mg [facility]#[id number] Reviewed 06/04/2013 12:00 AM Drug Screen (Medicare) [...] 1 Mg (6ml) [facility] [address]-41 Reviewed 05/06/2014 12:00 AM OFFICE/OUTPATIENT VISIT EST Reviewed 06/03/2014 12:00 AM DRAIN/INJ JOINT/BURSA W/O US Reviewed 06/03/2014 12:00 AM SYNVISC-ONE, Per 1 Mg (6ml) [facility] [address]-35 Reviewed 08/26/2014 12:00 AM RADIOLOGIC EXAM SACROILIAC JOINTS 3/MORE VIEWS Returned 01/20/2015 12:00 AM DRAIN/INJ JOINT/BURSA W/O US Reviewed 01/20/2015 12:00 AM SYNVISC-ONE, Per 1 Mg (6ml) [facility] [address]-18 Returned 02/24/2015 12:00 AM DRAIN/INJ JOINT/BURSA W/O US Reviewed 02/24/2015 12:00 AM SYNVISC-ONE, Per 1 Mg (6ml) [facility] [id number] Returned Results Summary Data and Description Results [...] Date Medicare Part B Medicare Of [place] [id number] Saturday, 2001 History of Encounters Visit Date [...] Office visit Maribel GUARDADO 08/27/2013 Office visit Mairbel GUARDADO 07/02/2013 Office visit Maribel GUARDADO 06/04/2013 Office visit Maribel GUARDADO 10/09/2012 Office visit Lloyd Oviedo MD 05/08/2010 Office visit Lloyd Oviedo MD 04/21/2010 Office visit Lloyd Oviedo MD
--- OUTSIDE RECORDS SUMMARY | 2018-07-23 11:07 | XMS REPORT ---
Author Author Maribel Vieira [facility] Address [address] [place], [place] [id number] Care Team Providers Care River Guide Name Role Phone Maribel Vieira PCP Elias [...] solution 03/28/2017 INJECT 160 UNITS DAILY DXE11.43. EqualEyesuch Ultra Test miscellaneous strip 03/28/2017 Use to [...] 1 ( 20mg) tablet QD, (60mgs OD). Scandlines Ultra Test miscellaneous strip 04/30/2017 04/30/2017 Use to test blood sugar six times daily Aspirin 325 mg Oral Tablet 05/07/2017 take 1 tablet (325 mg) by oral route once daily aspirin 325 mg oral tablet,delayed release (DR/EC) 05/10/2017 07/09/2017 TAKE 1 TABLET BY MOUTH ONCE A DAY risperidone 0.5 mg oral tablet 05/28/2017 WEAN by 0.5 mg weekly - called to [place] [facility] potassium chloride 10 mEq oral tablet [...] substance abuse disabeled Did not serve in [employer] Disability History of Procedures Date Ordered [...] C AB TEST Returned 05/21/2017 12:00 AM [facility] MEDICARE - flu vaccine administration Reviewed 05/21/2017 [...] AM Kenalog, Per 10 Mg [facility]#[id number] Reviewed 06/04/2013 12:00 AM Drug Screen (Medicare) [...] Per 1 Mg (6ml) [facility] [id number] Reviewed 05/06/2014 12:00 AM OFFICE/OUTPATIENT VISIT EST Reviewed 06/03/2014 12:00 AM DRAIN/INJ JOINT/BURSA W/O US Reviewed 06/03/2014 12:00 AM SYNVISC-ONE, Per 1 Mg (6ml) [facility] [id number] Reviewed 08/26/2014 12:00 AM RADIOLOGIC EXAM SACROILIAC JOINTS 3/MORE VIEWS Reviewed 01/20/2015 12:00 AM DRAIN/INJ JOINT/BURSA W/O US Reviewed 01/20/2015 12:00 AM SYNVISC-ONE, Per 1 Mg (6ml) [facility] [id number] Reviewed 02/24/2015 12:00 AM DRAIN/INJ JOINT/BURSA W/O US Reviewed 02/24/2015 12:00 AM SYNVISC-ONE, Per 1 Mg (6ml) [facility] [id number] Reviewed Results Summary Date and Description Results [...] Influenza 05/10/2016 sanofi pasteur PMC Fluzone Quadrivalent [id number] Intramuscular Left Upper Arm 05/10/2016 02/04/2015 141 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 Unknown 06/21/2016 [...] Number Start Date Medicare RHC Medicare RHC [id number] Saturday, 2001 Medicare Part A Medicare - Lab/Xray [id number] Saturday, December 29, 2001 Medicare Part B Medicare Of [place] [id number] Saturday, December 29, 2001 Medicare Part A Medicare Part A [id number] Saturday, December 29, 2001 History of Encounters Visit Date Visit Type Provider 12/03/2017 Office visit Maribel GUARDADO 11/06/2017 Office visit Maribel GUARDADO 10/09/2017 Office visit Maribel GUARDADO 09/26/2017 [facility] Rosendo Marina MD 09/11/2017 Office [...] Laboratory Maribel GUARDADO 07/04/2016 Office visit Maribel ROBERTSP 06/07/2016 Laboratory Maribel Vieira DIRECTOR OF MATERIALS MANAGEMENT 06/06/2016 Office visit Maribel ROBERTSP 05/09/2016 Office visit Maribel ROBERTSP 03/07/2016 Office visit Maribel Faith Dariel ROBERTSP 02/08/2016 Office visit Maribel Faith Dariel ROBERTSP 01/11/2016 Office visit Maribel Vianney ROBERTSP 12/14/2015 Office visit Maribel ROBERTSP 11/14/2015 Office visit Maribel ROBERTSP 10/03/2015 Office visit Maribel M. Dariel ROBERTSP 09/06/2015 Laboratory Maribel M. Dariel ROBERTSP 08/31/2015 Office visit Maribel ROBERTSP 08/03/2015 Office visit Maribel ROBERTSP 07/06/2015 Office visit Maribelvenkat ROBERTSP 06/09/2015 Nurse visit Maribel ROBERTSP 05/17/2015 Office visit Maribel ROBERTSP 04/25/2015 Office visit Maribel ROBERTSP 03/28/2015 Office visit Maribel ROBERTSP 02/24/2015 Office visit Maribel ROBERTSP 01/20/2015 Office visit Maribel ROBERTSP 12/23/2014 Office visit Maribel ROBERTSP 11/25/2014 Office visit Maribel ROBERTSP 10/21/2014 Nurse visit Maribel ROBERTSP 09/29/2014 Office visit Maribelvenkat ROBERTSP 08/26/2014 Office visit Maribel ROBERTSP 07/29/2014 [...]
--- NOTE | 2018-07-23 11:08 | Cardiac Procedure Note-CS/ASA ---
Pre-Procedure Note Pre-Op Procedure Note H&P Reviewed The H&P was reviewed, patient examined and no changes noted. Date H&P Reviewed: Jul 23, 2018 Time H&P Reviewed: 11:08 Conscious Sedation Pre-Proced Time 11:08 ASA Score 3 For ASA 3 and 4: Consider anesthesia and medical clearance. Also, for patients with a history of failed moderate sedation consider anesthesia. Airway Lungs Heart ASA score ASA 1: a normal healthy patient ASA 2: a patient with a mild systemic disease (mid diabetes, controlled hypertension, obesity x ASA 3: a patient with a severe systemic disease that limits activity (angina , COPD, prior Myocardial infarction) ASA 4: a patient with an incapacitating disease that is a constant threat to life (CHF, renal failure) ASA 5: a moribund patient not expected to survive 24 hrs. (ruptured aneurysm) ASA 6: a declared brain patient whose organs are being harvested. For emergent operations, add the letter E after the classification Mallampati Classification Grade 3 Sedation Plan Analgesia, Amnesia, Plan communicated to team members, Discussed options with patient/fam, Discussed risks with patient/fam The patient is an appropriate candidate to undergo the planned procedure, sedation, and anesthesia. The patient immediately re-assessed prior to indication. JONI FOX MD Jul 23, 2018 11:08
--- OUTSIDE RECORDS SUMMARY | 2018-07-23 11:08 | XMS REPORT ---
Author Author Maribel Vieira [facility] Address [address] [place], [place] [address] Care Team Providers Care Clay Press Operator Name Role Phone Maribel Vieira PCP Allergies [...] substance abuse disabeled Did not serve in [employer] recieving [employer] Security Disability History of Procedures Date Ordered Description Order Status 10/09/2012 12:00 AM DRAIN/INJ JOINT/BURSA W/O US Reviewed 10/09/2012 12:00 AM Kenalog, Per 10 Mg [facility]#[id number] Reviewed 06/04/2013 12:00 AM Drug Screen (Medicare) [...] Mg (6ml) [facility] [address]-64 Reviewed 05/06/2014 12:00 AM OFFICE/OUTPATIENT VISIT EST Reviewed 06/03/2014 12:00 AM DRAIN/INJ JOINT/BURSA W/O US Reviewed 06/03/2014 12:00 AM SYNVISC-ONE, Per 1 Mg (6ml) [facility] [address]-29 Reviewed 08/26/2014 12:00 AM RADIOLOGIC EXAM SACROILIAC JOINTS 3/MORE VIEWS Returned 01/20/2015 12:00 AM DRAIN/INJ JOINT/BURSA W/O US Reviewed 01/20/2015 12:00 AM SYNVISC-ONE, Per 1 Mg (6ml) [facility] [address]-79 Returned 02/24/2015 12:00 AM DRAIN/INJ JOINT/BURSA W/O US Reviewed 02/24/2015 12:00 AM SYNVISC-ONE, Per 1 Mg (6ml) [facility] [id number] Returned Results Summary Data and Description Results [...] Date Medicare Part B Medicare Of [place] [id number] Saturday, 2001 History of Encounters Visit Date [...]
--- OUTSIDE RECORDS SUMMARY | 2018-07-23 11:10 | XMS REPORT ---
Author Author Maribel Vieira [facility] Address [address] [place], [place] [address] Care Team Providers Care Machine I Coremaker Name Role Phone Maribel Vieira PCP Elias [...] virus (HCV) antibody assay 05/21/2017 12:00 AM T1DM - insulin pump [...] solution 03/28/2017 INJECT 160 UNITS DAILY DXE11.43. [employer] Ultra Test miscellaneous strip 03/28/2017 Use to [...] 10/09/2012 12:00 AM Kenalog, Per 10 Mg [facility]#[id number] Reviewed 06/04/2013 12:00 AM Drug Screen (Medicare) [...] 12:00 AM SYNVISC-ONE, Per 1 Mg (6ml) [facility] [address]-79 Reviewed 05/06/2014 12:00 AM OFFICE/OUTPATIENT VISIT EST Reviewed 06/03/2014 12:00 AM DRAIN/INJ JOINT/BURSA W/O US Reviewed 06/03/2014 12:00 AM SYNVISC-ONE, Per 1 Mg (6ml) [facility] [address]-60 Reviewed 08/26/2014 12:00 AM RADIOLOGIC EXAM SACROILIAC JOINTS 3/MORE VIEWS Reviewed 01/20/2015 12:00 AM DRAIN/INJ JOINT/BURSA W/O US Reviewed 01/20/2015 12:00 AM SYNVISC-ONE, Per 1 Mg (6ml) [facility] [address]-10 Reviewed 02/24/2015 12:00 AM DRAIN/INJ JOINT/BURSA W/O US Reviewed 02/24/2015 12:00 AM SYNVISC-ONE, Per 1 Mg (6ml) [facility] [address]-47 Reviewed Results Summary Date and Description Results [...] Influenza 05/10/2016 sanofi pasteur PMC Fluzone Quadrivalent [id number] Intramuscular Left Upper Arm 05/10/2016 02/04/2015 141 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/2013 Unknown 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 chief 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 UNK Unknown 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 Unknown 06/21/2016 07/01/2017 [...] per Medtronic pumpRoutine visits with endocrinology - Maliheh Ziglari, BIOFUELS RESEARCH SCIENTIST Acquired hypothyroidism 09/01/2015 Hyperlipidemia 09/01/2015 Type 1 [...] 3:04PM Hepatitis C May 21 2017 3:04PM Payers Insurance Name Company Name Plan Name Plan Number Policy Number Policy Group Number Start Date Medicare RHC Medicare RHC [id number] Saturday, 2001 Medicare Part A Medicare - Lab/Xray [id number] Saturday, December 29, 2001 Medicare Part B Medicare Of [place] [id number] Saturday, December 29, 2001 Medicare Part A Medicare Part A [id number] Saturday, December 29, 2001 History of Encounters [...] Faith Dariel ROBERTSP 01/11/2016 Office visit Maribel Vieira FACETOR 12/14/2015 Office visit Maribel M. Dariel ROBERTSP 11/14/2015 Office visit Maribel Faith Dariel ROBERTSP 10/03/2015 Office visit Maribel Vieira FACETOR 09/06/2015 Laboratory Maribel ValCharley Vieira FACETOR 08/31/2015 Office visit Maribel ValCharley Dariel ROBERTSP 08/03/2015 Office visit Maribel NealCharley Dariel ROBERTSP 07/06/2015 Office visit Maribel M. Dariel ROBERTSP 06/09/2015 Nurse visit Maribel M. Dariel ROBERTSP 05/17/2015 Office visit Maribelvenkat Vieira FACETOR 04/25/2015 Office visit Maribel M. Dariel ROBERTSP 03/28/2015 Office visit Maribel M. Dariel ROBERTSP 02/24/2015 Office visit Maribelvenkat Vieira FACETOR 01/20/2015 Office visit Maribel Vieira FACETOR 12/23/2014 Office visit Maribel ValCahrley Dariel ROBERTSP 11/25/2014 Office visit Maribel ROBERTSP 10/21/2014 Nurse visit Maribel ValCharley Dariel ROBERTSP 09/29/2014 Office visit Maribel Vieira FACETOR 08/26/2014 Office visit Maribel ValCharley Dariel ROBERTSP 07/29/2014 Nurse visit Maribel ROBERTSP 06/29/2014 Nurse visit Maribel Faith Dariel ROBERTSP 06/03/2014 Office visit Maribel M. Dariel ROBERTSP 05/06/2014 Nurse visit Maribel ROBERTSP [...]
--- OUTSIDE RECORDS SUMMARY | 2018-07-23 11:11 | XMS REPORT ---
Author Author Maribel Vieira [facility] Address [address] [place], [place] [id number] Care Team Providers Care Guard Chief Name Role Phone Mairbel Vieira PCP Elias Malagon Unavailable Unavailable Deborah Linares Unavailable Unavailable Allergies and Adverse Reactions Name Reaction Notes PENICILLINS Plan of Treatment Planned Activity Comments Planned Date Planned Time Plan/Goal LIPID PANEL 09/06/2015 12:00 AM GENERAL HEALTH PANEL 09/06/2015 12:00 AM ASSAY OF PSA TOTAL 09/06/2015 12:00 AM URINALYSIS AUTO W/O SCOPE 02/08/2016 12:00 AM Medications Active Name Start Date [...] substance abuse disabeled Did not serve in [employer] Social Security Disability History of Procedures Date [...] URNLS DIP STICK/TABLET REAGENT AUTO MICROSCOPY Returned 02/09/2016 4:24 PM URINALYSIS AUTO W/O SCOPE Reviewed 10/09/2012 12:00 AM DRAIN/INJ JOINT/BURSA W/O US Reviewed 10/09/2012 12:00 AM Kenalog, Per 10 Mg [facility]#[id number] Reviewed 06/04/2013 12:00 AM Drug Screen (Medicare) [...] Per 1 Mg (6ml) [facility] [address]-80 Reviewed 05/06/2014 12:00 AM OFFICE/OUTPATIENT VISIT EST Reviewed 06/03/2014 12:00 AM DRAIN/INJ JOINT/BURSA W/O US Reviewed 06/03/2014 12:00 AM SYNVISC-ONE, Per 1 Mg (6ml) [facility] [address]-42 Reviewed 08/26/2014 12:00 AM RADIOLOGIC EXAM SACROILIAC JOINTS 3/MORE VIEWS Returned 01/20/2015 12:00 AM DRAIN/INJ JOINT/BURSA W/O US Reviewed 01/20/2015 12:00 AM SYNVISC-ONE, Per 1 Mg (6ml) [facility] [address]-29 Returned 02/24/2015 12:00 AM DRAIN/INJ JOINT/BURSA W/O US Reviewed 02/24/2015 12:00 AM SYNVISC-ONE, Per 1 Mg (6ml) [facility] [address]-75 Returned Results Summary Data and Description Results [...] CELLS NEGATIVE / HPFTRICHOMONAS NEGATIVE YEAST NEGATIVE 02/09/2016 4:24 PM Clarity [...] Number Start Date Medicare Part A Medicare C [id number] Saturday, 2001 Medicare Part A Medicare - Lab/Xray [id number] Saturday, December 29, 2001 Medicare Part B Medicare Of [place] [id number] Saturday, December 29, 2001 Medicare Part A Medicare Part A [id number] Saturday, December 29, 2001 History of Encounters [...] visit Maribel GUARDADO 06/29/2014 Nurse visit Maribel ROBERTSP 06/03/2014 Office [...]
--- OUTSIDE RECORDS SUMMARY | 2018-07-23 11:12 | XMS REPORT ---
Author Author [facility] Organization [facility] Address [address] [place], [place] [id number] Care Team Providers Care Blood Bank Manager Name Role Phone PCP Unavailable Allergies and Adverse Reactions Name Reaction Notes PENICILLINS Plan of Treatment Not available. Medications Active Name Start Date Estimated Completion Date SIG Comments Wellbutrin Oral Tablet 100 mg take 1 tablet (100 mg) by oral route 3 times per day Novolog Subcutaneous Solution 100 unit/mL inject by subcutaneous route as per insulin sliding scale protocol Meloxicam Oral Tablet 7.5 mg take 1 tablet (7.5 mg) by oral route once daily Ranexa Oral Tablet Sustained Release 12 hr 500 mg take 1 tablet (500 mg ) by oral route 2 times per day Nitrostat Sublingual Tablet, 0.[address] 1 tablet (0.4 mg) by buccal route at the first sign of an attack; no more than 3 tablets are recommended within a 15 minute period. Prevacid Oral Capsule, Delayed Release(E.C.) 30 mg take 1 capsule (30 mg ) by oral route once daily before a meal Reglan Oral Tablet 10 mg take 1 tablet (10 mg) by oral route 4 times per day 30 minutes before meals and at bedtime Coreg Oral Tablet 25 mg take 1 tablet (25 mg) by oral route 2 times per day with food Cymbalta Oral Capsule, Delayed Release(E.C.) 60 mg take 2 capsules by oral route once daily Aspirin Oral Tablet 325 mg take 1 tablet (325 mg) by oral route once daily Zetia Oral tablet 10 mg take 1 tablet (10 mg) by oral route once daily atorvastatin Oral tablet 80 mg take 1 tablet (80 mg) by oral route once daily at bedtime ramipril Oral capsule 10 mg take 1 capsule (10 mg) by oral route once daily Ambien oral tablet 5 mg take 1 tablet (5 mg) by oral route once daily at bedtime furosemide oral tablet 40 mg take 1 & 1/2 tablet (60 mg) by oral route once daily potassium chloride oral tablet extended release 20 mEq take 1 & 1/2=[30 mg] tablet by oral route QD levothyroxine oral tablet 25 mcg 1 tab daily Neurontin oral capsule 300 mg 10/04/2014 TAKE 2 CAPSULES (600 MG) BY ORAL ROUTE 3 TIMES PER DAY FOR 30 DAYS morphine oral tablet extended release 15 mg 11/25/2014 12/25/2014 Take 30 mg in the morning and 15 mg in the evening. Percocet oral tablet 10-325 mg 11/25/2014 12/25/2014 take 1 tablet by oral route every 6 hours as needed for 30 days Name Start Date Expiration Date SIG Comments Neurontin oral capsule 300 mg 03/11/2014 08/08/2014 take 2 capsules (600 mg) by oral route 3 times per day for 30 days cyclobenzaprine oral tablet 10 mg 05/06/2014 11/02/2014 TAKE 1 TAB BY MOUTH EVERY 8 HOURS NEEDED FOR SPASM. for 30 days Discontinued Name Start Date Discontinued Date SIG Comments Flexeril Oral Tablet 10 mg 06/04/2013 take 1 tablet (10 mg) by oral route 3 times per day /PRN Ambien Oral Tablet 10 mg 08/27/2013 take 1 tablet (10 mg) by oral route once daily at bedtime Lortab Oral Tablet 10-500 mg 10/09/2012 take 1 tablet by oral route every 6 hours as needed for pain Ultram ER Oral Tablet Sustained Release 24 hr 200 mg 08/27/2013 take 1 tablet (200 mg) by oral route once daily Lasix Oral Tablet 20 mg 08/27/2013 take 1 tablet (20 mg) by oral route once daily Vytorin 10-80 Oral Tablet mg 10/09/2012 take 1 tablet by oral route once daily Altace Oral Capsule 5 mg 10/09/2012 take 1 capsule (5 mg) by oral route once daily Potassium Chloride Oral Tab Sust.Rel. Particle/Crystal 20 mEq 08/27/2013 take 1 tablet (20 meq) by oral route once daily with food Plavix Oral Tablet 75 mg 10/09/2012 take 1 tablet (75 mg) by oral route once daily MS Contin oral tablet extended release 30 mg 10/28/2014 11/25/2014 take 1 tablet (30 mg) [...] HC BMI BSA BMI Percentile O2 Sat(%) 11/25/2014 8:48:00 AM 122 mmHg 64 mmHg [...] 16 yr olds at home Former smoker quit 7 days ago....smoked x 33 years Has never used alcohol Denies illicit substance abuse disabeled Did not serve in recieving Social Security Disability History of Procedures Date Ordered Description Order Status 10/09/2012 12:00 AM DRAIN/INJ JOINT/BURSA W/O US Reviewed 11/19/2013 12:00 AM DRAIN/INJ JOINT/BURSA W/O US Reviewed 11/19/2013 12:00 AM INJECTION FOR KNEE X-RAY Reviewed 04/21/2010 12:00 AM MRI LUMBAR SPINE W/O DYE Reviewed 05/08/2010 12:00 AM MRI LUMBAR SPINE W/O DYE Reviewed 03/11/2014 12:00 AM DRAIN/INJ JOINT/BURSA W/O US Reviewed 05/06/2014 12:00 AM OFFICE/OUTPATIENT VISIT EST [...] Right Knee Pain Nov 25 2014 8:51AM Payers Insurance Name Company Name Plan Name Plan Number Policy Number Policy Group Number Start Date Medicare Part B Medicare Of [place] [id number] Saturday, 2001 History of Encounters Visit Date Visit Type Provider 11/25/2014 Office visit Maribel GUARDADO 10/21/2014 Nurse [...] Office visit Maribel GUARDADO 10/09/2012 Office visit Llyod Oviedo MD 05/08/2010 Office visit Lloyd Oviedo MD 04/21/2010 Office visit Lloyd Oviedo MD
--- OUTSIDE RECORDS SUMMARY | 2018-07-23 11:13 | XMS REPORT ---
Author Author Maribel Vieira [facility] Address [address] [place], [place] [address] Care Team Providers Care Lasting Machine Operator Hand Method Name Role Phone Maribel Vieira PCP Elias Malagon Unavailable Unavailable Deborah Linares Unavailable Unavailable Allergies and Adverse Reactions Name Reaction Notes PENICILLINS Plan of Treatment Planned Activity Comments Planned Date Planned Time Plan/Goal Lipid profile 09/06/2015 12:00 AM GENERAL HEALTH PANEL 09/06/2015 12:00 AM PSA TOTAL 09/06/2015 12:00 AM MICROALBUMIN UR RANDOM 07/24/2017 12:00 AM HGB A1C 11/06/2017 12:00 AM T1DM - insulin pump -current [...] solution 03/28/2017 INJECT 160 UNITS DAILY DXE11.43. Bizzingouch Ultra Test miscellaneous strip 03/28/2017 Use to [...] 1 ( 20mg) tablet QD, (60mgs OD). [employer] Ultra Test miscellaneous strip 04/30/2017 04/30/2017 Use to test blood sugar six times daily Aspirin 325 mg Oral Tablet 05/07/2017 take 1 tablet (325 mg) by oral route once daily aspirin 325 mg oral tablet,delayed release (DR/EC) 05/10/2017 07/09/2017 TAKE 1 TABLET BY MOUTH ONCE A DAY risperidone 0.5 mg oral tablet 05/28/2017 WEAN by 0.5 mg weekly - called to [place] pharm potassium chloride 10 mEq oral tablet [...] ROUTE 2 TIMES PER DAY WITH FOOD Tamiflu 75 mg oral capsule 07/31/2017 take [...] and taper as instructed switch to effexor Ambien 10 mg oral tablet 09/05/2017 09/11/2017 [...] substance abuse disabeled Did not serve in [employer] Disability History of Procedures Date Ordered [...] C AB TEST Returned 05/21/2017 12:00 AM C MEDICARE - flu vaccine administration Reviewed 05/21/2017 [...] EXTRE W/O DYE Reviewed 11/06/2017 12:00 AM COLLECTION VENOUS BLOOD VENIPUNCTURE Reviewed 10/09/2012 12:00 AM DRAIN/INJ JOINT/BURSA W/O US Reviewed 10/09/2012 12:00 AM Kenalog, Per 10 Mg [facility]#[id number] Reviewed 06/04/2013 12:00 AM Drug Screen (Medicare) [...] Per 1 Mg (6ml) [facility] [id number] Reviewed 05/06/2014 12:00 AM OFFICE/OUTPATIENT VISIT EST Reviewed 06/03/2014 12:00 AM DRAIN/INJ JOINT/BURSA W/O US Reviewed 06/03/2014 12:00 AM SYNVISC-ONE, Per 1 Mg (6ml) [facility] [address]-85 Reviewed 08/26/2014 12:00 AM RADIOLOGIC EXAM SACROILIAC JOINTS 3/MORE VIEWS Reviewed 01/20/2015 12:00 AM DRAIN/INJ JOINT/BURSA W/O US Reviewed 01/20/2015 12:00 AM SYNVISC-ONE, Per 1 Mg (6ml) [facility] [id number] Reviewed 02/24/2015 12:00 AM DRAIN/INJ JOINT/BURSA W/O US Reviewed 02/24/2015 12:00 AM SYNVISC-ONE, Per 1 Mg (6ml) [facility] [address]-30 Reviewed Results Summary Date and Description Results [...] Vis Given Vis Pub CVX [facility] Fluzone Quadrivalent [id number] Intramuscular Left Upper Arm 05/10/2016 02/04/2015 141 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/2013 Unknown delivery aide UNK Unknown 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 Unknown 06/21/2016 07/01/2018 33 Influenza 05/21/2017 [email or web address] [facility] FLUZONE [id number] Intramuscular Left Arm 05/22/2017 01/24/2011 [...] Postlaminectomy syndrome of lumbar region Sep 11 2013 9:48AM Cervical Radiculopathy Sep 11 2013 [...] Number Start Date Medicare RHC Medicare RHC [id number] Saturday, 2001 Medicare Part A Medicare - Lab/Xray [id number] Saturday, December 29, 2001 Medicare Part B Medicare Of [place] [id number] Saturday, December 29, 2001 Medicare Part A Medicare Part A [id number] Saturday, December 29, 2001 History of Encounters [...] visit Maribel GUARDADO 02/08/2016 Office visit Maribel Vianney ROBERTSP 01/11/2016 Office visit Maribel M. Dariel ROBERTSP 12/14/2015 Office visit Maribel ROBERTSP 11/14/2015 Office visit Maribel ROBERTSP 10/03/2015 Office visit Maribel ValCharley Dariel ROBERTSP 09/06/2015 Laboratory Maribel ValCharley Dariel ROBERTSP 08/31/2015 Office visit Maribel NealCharley Dariel ROBERTSP 08/03/2015 Office visit Maribel ROBERTSP 07/06/2015 Office visit Maribel ROBERTSP 06/09/2015 Nurse visit Maribel NealCharley Dariel ROBERTSP 05/17/2015 Office visit Maribel ValCharley Dariel ROBERTSP 04/25/2015 Office visit Maribel ROBERTSP 03/28/2015 Office visit Maribel ROBERTSP 02/24/2015 Office visit Maribel NealCharley Dariel ROBERTSP 01/20/2015 Office visit Maribel ROBERTSP 12/23/2014 Office visit Maribel ROBERTSP 11/25/2014 Office visit Maribel ROBERTSP 10/21/2014 Nurse visit Maribel ROBERTSP 09/29/2014 Office visit Maribel Vianney ROBERTSP 08/26/2014 Office visit Maribel ROBERTSP 07/29/2014 [...]
--- OUTSIDE RECORDS SUMMARY | 2018-07-23 11:14 | XMS REPORT ---
Author Author Maribel Vieira [facility] Address [address] [place], [place] [id number] Care Team Providers Care General Utility Machine Operator Name Role Phone Maribel Vieira PCP [...] by oral route 2 times per day Marcinthya potassium chloride 10 mEq oral tablet extended [...] once daily at bedtime for 30 days morphine 15 mg oral tablet extended release 12/14/2015 01/13/2016 take 1 tablet by oral route every 12 hours for 30 days Percocet 10-325 mg oral tablet 12/14/2015 01/13/2016 take 1 tablet by oral route every [...] HC BMI BSA BMI Percentile O2 Sat(%) 12/14/2015 1:17:00 PM 140 mmHg 74 mmHg [...] F 322 lbs 76 in 39.1947 kg/m 2.80 m2 06/03/2014 9:20:00 AM 110 mmHg 60 mmHg 70 bpm 16 rpm 96 F 320 lbs 75.5 in 39.47 kg/m2 2.7807 m 03/11/2014 9:32:00 AM 128 mmHg [...] 10/09/2012 12:00 AM Kenalog, Per [address] [facility]#[id number] Reviewed 06/04/2013 12:00 AM Drug Screen (Medicare) [...] 12:00 AM SYNVISC-ONE, Per 1 Mg (6ml) [facility] [address]-54 Reviewed 05/06/2014 12:00 AM OFFICE/OUTPATIENT VISIT EST Reviewed 06/03/2014 12:00 AM DRAIN/INJ JOINT/BURSA W/O US Reviewed 06/03/2014 12:00 AM SYNVISC-ONE, Per 1 Mg (6ml) [facility] [address]-06 Reviewed 08/26/2014 12:00 AM RADIOLOGIC EXAM SACROILIAC JOINTS 3/MORE VIEWS Returned 01/20/2015 12:00 AM DRAIN/INJ JOINT/BURSA W/O US Reviewed 01/20/2015 12:00 AM SYNVISC-ONE, Per 1 Mg (6ml) [facility] [address]-59 Returned 02/24/2015 12:00 AM DRAIN/INJ JOINT/BURSA W/O US Reviewed 02/24/2015 12:00 AM SYNVISC-ONE, Per 1 Mg (6ml) [facility] [id number] Returned Results Summary Data and Description Results [...] 9.10 mg/ dLeGFR >60 mL/min/1.73mTSH 2.810 uIU/mL History Of Immunizations Not available. History of [...] 2015 2:01PM Postlaminectomy syndrome of lumbar region b 2015 1:55PM Radiculopathy, lumbar region b 2015 1:55PM Chronic Back Pain b 3 2015 1:55PM Essential Hypertension Aug 31 [...] Chronic Back Pain Dec 14 2015 1:20PM Payers Insurance Name Company Name Plan Name Plan Number Policy Number Policy Group Number Start Date Medicare Part A Medicare RHC [id number] Saturday, 2001 Medicare Part A Medicare - Lab/Xray [id number] Saturday, December 29, 2001 Medicare Part B Medicare Of [place] [id number] Saturday, December 29, 2001 Medicare Part A Medicare Part A [id number] Saturday, December 29, 2001 History of Encounters Visit Date Visit Type Provider 12/14/2015 Office visit Maribel GUARDADO 11/14/2015 Office visit Maribel GUARDADO 10/03/2015 Office visit Maribel GUARDADO 09/06/2015 Laboratory Maribel GUARDADO 08/31/2015 Office visit Maribel GUARDADO 08/03/2015 Office visit Maribel GUARDADO 07/06/2015 Office visit Maribel GUARDADO 06/09/2015 Nurse visit Maribel GUARDADO 05/17/2015 Office visit Maribel GUARDADO 04/25/2015 Office visit Mairbel GUARDADO 03/28/2015 Office visit Maribel GUARDADO 02/24/2015 Office visit Maribel GUARDADO 01/20/2015 Office visit Maribel GUARDADO 12/23/2014 Office visit Maribel ROBERTSP 11/25/2014 Office visit Maribel ROBERTSP 10/21/2014 Nurse visit Maribel ROBERTSP 09/29/2014 Office visit Maribel ROBERTSP 08/26/2014 Office visit Maribel ROBERTSP 07/29/2014 Nurse visit Maribel ROBERTSP 06/29/2014 Nurse visit Maribel ROBERTSP 06/03/2014 Office visit Maribel ROBERTSP 05/06/2014 Nurse visit Maribel ROBERTSP 04/08/2014 Nurse visit Maribel Vianney ROBERTSP 03/11/2014 Office visit Maribel ROBERTSP 02/11/2014 [...]
--- OUTSIDE RECORDS SUMMARY | 2018-07-23 11:15 | XMS REPORT ---
Author Author Maribel Vieira [facility] Address [address] [place], [place] [id number] Care Team Providers Care Machine Gun Mechanic Name Role Phone Maribel Vieira PCP [...] times per day as needed for cough Name Start Date Expiration Date SIG Comments [...] 10/09/2012 12:00 AM Kenalog, Per 10 Mg [facility]#[id number] Reviewed 06/04/2013 12:00 AM Drug Screen (Medicare) [...] 12:00 AM SYNVISC-ONE, Per 1 Mg (6ml) [facility] [address]-43 Reviewed 05/06/2014 12:00 AM OFFICE/OUTPATIENT VISIT EST Reviewed 06/03/2014 12:00 AM DRAIN/INJ JOINT/BURSA W/O US Reviewed 06/03/2014 12:00 AM SYNVISC-ONE, Per 1 Mg (6ml) [facility] [address]-34 Reviewed 08/26/2014 12:00 AM RADIOLOGIC EXAM SACROILIAC JOINTS 3/MORE VIEWS Reviewed 01/20/2015 12:00 AM DRAIN/INJ JOINT/BURSA W/O US Reviewed 01/20/2015 12:00 AM SYNVISC-ONE, Per 1 Mg (6ml) [facility] [address]-48 Reviewed 02/24/2015 12:00 AM DRAIN/INJ JOINT/BURSA W/O US Reviewed 02/24/2015 12:00 AM SYNVISC-ONE, Per 1 Mg (6ml) [facility] [address]-88 Reviewed Results Summary Data and Description Results [...] Influenza 05/10/2016 sanofi pasteur PMC Fluzone Quadrivalent [id number] Intramuscular Left Upper Arm 05/10/2016 02/04/2015 141 [...] Number Start Date Medicare Part A Medicare [facility] [id number] Saturday, 2001 Medicare Part A Medicare - Lab/Xray [id number] Saturday, December 29, 2001 Medicare Part B Medicare Of [place] [id number] Saturday, December 29, 2001 Medicare Part A Medicare Part A [id number] Saturday, December 29, 2001 History of Encounters [...] visit Maribel GUARDADO 03/11/2014 Office visit Maribel ROBERTSP 02/11/2014 Office [...]
--- OUTSIDE RECORDS SUMMARY | 2018-07-23 11:16 | XMS REPORT ---
Author Author [facility] Organization [facility] Address [address] [place], [place] [phone] Care Team Providers Care Electric Container Tester Name Role Phone PCP Unavailable Allergies and Adverse Reactions Name Reaction Notes PENICILLINS Plan of Treatment Not available. Medications Active Name Start Date Estimated Completion Date SIG Comments Wellbutrin Oral Tablet 100 mg take 1 tablet (100 mg) by oral route 3 times per day Novolog Subcutaneous Solution 100 unit/mL inject by subcutaneous route as per insulin sliding scale protocol Ranexa Oral Tablet Sustained Release 12 hr [...] TIMES PER DAY FOR 30 DAYS Neurontin oral capsule 300 mg 12/07/2014 TAKE 2 CAPSULES (600 MG) BY ORAL ROUTE 3 TIMES PER DAY FOR 30 DAYS Voltaren topical gel 1 % 12/23/2014 apply 2 gram to the affected area(s) by topical route 4 times per day Percocet oral tablet 10-325 mg 12/23/2014 01/22/2015 take 1 tablet by oral route every 6 hours as needed for 30 days morphine oral tablet extended release 15 mg 12/23/2014 01/22/2015 Take 30 mg in the morning and 15 mg in the evening. Synvisc-One intra-articular syringe 48 mg/6 mL 12/23/2014 inject 6 milliliters by intra-articular route into [...] (200 mg) by oral route once daily Meloxicam Oral Tablet 7.5 mg 12/23/2014 take 1 tablet (7.5 mg) by [...] Active Insomnia Active Arthritis unspecified Active Chronic obstructive pulmonary disease Active GERD Active Chronic Back Pain Active cervical neck pain Active Cervical Radiculopathy Active 01/14/2014 Postlaminectomy syndrome of lumbar region Active 01/14/2014 Radiculopathy, lumbosacral Active 01/14/2014 Sacroiliac joint dysfunction Active 10/06/2014 Vital Signs Date Time BP-Sys(mm[Hg] BP-Ellie(mm[Hg]) HR(bpm) RR(rpm) Temp WT HT HC BMI BSA BMI Percentile O2 Sat(%) 12/23/2014 8:29:00 AM 134 mmHg 72 mmHg [...] with Anxiety Diabetes Mellitus, Type II Chronic obstructive pulmonary disease GERD Hypercholesterolemia Hepatitis Insomnia stroke Chronic Back [...] 8:32AM Muscle strain Dec 23 2014 8:32AM Payers Insurance Name Company Name Plan Name Plan Number Policy Number Policy Group Number Start Date Medicare Part B Medicare Of [place] [id number] Saturday, 2001 History of Encounters Visit Date Visit Type Provider 12/23/2014 Office visit Maribel GUARDADO 11/25/2014 Office [...] visit Maribel ROBERTSP 08/27/2013 Office visit Maribel ORBERTSP 07/02/2013 Office visit Maribel GUARDADO 06/04/2013 Office visit Maribel GUARDADO 10/09/2012 Office visit Lloyd Oviedo MD 05/08/2010 Office visit Lloyd Oviedo MD 04/21/2010 Office visit Lloyd Oviedo MD
--- OUTSIDE RECORDS SUMMARY | 2018-07-23 11:17 | XMS REPORT ---
Author Author Maribel Vieira [facility] Address [address] [place], [place] [address] Care Team Providers Care Mine Wirer Name Role Phone Maribel Vieira PCP Elias [...] oral route 2 times per day Marje potassium chloride 10 mEq oral tablet extended [...] oral route once daily for 90 days morphine 15 mg oral tablet extended release 11/14/2015 12/14/2015 take 1 tablet (15 mg) by oral route every 8 hours for 30 days Percocet 10-325 mg oral tablet 11/14/2015 12/14/2015 take 1 tablet by oral route every 8 hours as needed for 30 days furosemide 40 mg oral tablet 12/07/2015 12/01/2016 take 1.5 tablets by oral route daily for 90 days Ambien 5 mg oral tablet 12/07/2015 03/06/2016 take 1 tablet (5 mg) by oral route once daily at bedtime for 30 days Name Start Date Expiration [...] HC BMI BSA BMI Percentile O2 Sat(%) 11/14/2015 1:26:00 PM 116 mmHg 56 mmHg [...] 11/14/2015 12:00 AM GENERAL HEALTH PANEL Returned 10/09/2012 12:00 AM DRAIN/INJ JOINT/BURSA W/O US Reviewed 10/09/2012 12:00 AM Kenalog, Per 10 Mg [facility]#1759-7004-30 Reviewed 06/04/2013 12:00 AM Drug Screen (Medicare) [...] AM SYNVISC-ONE, Per 1 Mg (6ml) [facility] [address]-71 Reviewed 05/06/2014 12:00 AM OFFICE/OUTPATIENT VISIT EST Reviewed 06/03/2014 12:00 AM DRAIN/INJ JOINT/BURSA W/O US Reviewed 06/03/2014 12:00 AM SYNVISC-ONE, Per 1 Mg (6ml) [facility] [address]-19 Reviewed 08/26/2014 12:00 AM RADIOLOGIC EXAM SACROILIAC JOINTS 3/MORE VIEWS Returned 01/20/2015 12:00 AM DRAIN/INJ JOINT/BURSA W/O US Reviewed 01/20/2015 12:00 AM SYNVISC-ONE, Per 1 Mg (6ml) [facility] [address]-50 Returned 02/24/2015 12:00 AM DRAIN/INJ JOINT/BURSA W/O US Reviewed 02/24/2015 12:00 AM SYNVISC-ONE, Per 1 Mg (6ml) [facility] [address]-53 Returned Results Summary Data and Description Results [...] Chronic Back Pain Nov 14 2015 1:28PM Payers Insurance Name Company Name Plan Name Plan Number Policy Number Policy Group Number Start Date Medicare Part A Medicare RHC [id number] Saturday, 2001 Medicare Part A Medicare - Lab/Xray [id number] Saturday, December 29, 2001 Medicare Part B Medicare Of [place] [id number] Saturday, December 29, 2001 Medicare Part A Medicare Part A [id number] Saturday, December 29, 2001 History of Encounters Visit Date Visit Type Provider 11/14/2015 Office visit Maribel GUARDADO 10/03/2015 Office [...] visit Maribel GUARDADO 04/08/2014 Nurse visit Maribel ROBERTSP 03/11/2014 Office visit Maribel ROBERTSP 02/11/2014 Office visit Maribel ROBERTSP 01/14/2014 Office visit Maribel ROBERTSP 12/17/2013 Office visit Maribel ROBERTSP 11/19/2013 Office visit Maribel ROBERTSP 10/22/2013 Office visit Maribel ROBERTSP 09/24/2013 Office visit Maribel ROBERTSP 08/27/2013 Office visit Maribel ROBERTSP 07/02/2013 Office visit Maribel ROBERTSP 06/04/2013 Office visit Mariebl ROBERTSP 10/09/2012 Office visit Lloyd Oviedo MD 05/08/2010 Office visit Lloyd Oviedo MD 04/21/2010 Office visit Lloyd Oviedo MD
--- OUTSIDE RECORDS SUMMARY | 2018-07-23 11:18 | XMS REPORT ---
Author Author Maribel Vieira [facility] Address [address] [place], [place] [id number] Care Team Providers Care Translation Director Name Role Phone Maribel Vieira PCP Elias Malagon Unavailable Unavailable Deborah Linares Unavailable Unavailable Allergies and Adverse Reactions Name Reaction Notes PENICILLINS Plan of Treatment Planned Activity Comments Planned Date Planned Time Plan/Goal Lipid profile 09/06/2015 12:00 AM GENERAL HEALTH PANEL 09/06/2015 12:00 AM PSA TOTAL 09/06/2015 12:00 AM Chest PA and Lateral - Main 09/28/2016 12:00 AM DAVID (Ankle Brachial Index). 09/26/2016 12:00 AM T1DM - insulin pump -current [...] oral route once daily for 5 days albuterol sulfate 2.5 mg /3 mL (0.083 %) inhalation solution for nebulization 09/28/2016 inhale 3 milliliters (2.5 mg) by nebulization route 4 times per day as needed ProAir HFA 90 mcg/actuation inhalation HFA aerosol inhaler 09/28/2016 inhale 1 - 2 puffs (90 - 180 mcg) by inhalation route every 4-6 hours as needed Tessalon Perles 100 mg oral capsule 09/28/2016 take 1 capsule (100 mg) by oral [...] HC BMI BSA BMI Percentile O2 Sat(%) 09/28/2016 10:37:00 AM 118 mmHg 78 mmHg [...] AUTO W/O SCOPE Reviewed 05/10/2016 12:00 AM [facility] MEDICARE - flu vaccine administration Reviewed 05/10/2016 12:00 AM INFLUENZA VACCINE QUADRIVALENT 3 YRS PLUS IM Reviewed 06/07/2016 12:00 AM COMPLETE CBC W/AUTO DIFF WBC Returned 06/07/2016 12:00 AM COMPREHEN METABOLIC PANEL Returned 06/07/2016 12:00 AM ASSAY OF FERRITIN Returned 06/06/2016 12:00 AM CHEST X-RAY 2VW FRONTAL&LATL Returned 10/09/2012 12:00 AM DRAIN/INJ JOINT/BURSA W/O US Reviewed 10/09/2012 12:00 AM Kenalog, Per 10 Mg [facility]#[id number] Reviewed 06/04/2013 12:00 AM Drug Screen (Medicare) [...] 12:00 AM SYNVISC-ONE, Per 1 Mg (6ml) [facility] [address]-60 Reviewed 05/06/2014 12:00 AM OFFICE/OUTPATIENT VISIT EST Reviewed 06/03/2014 12:00 AM DRAIN/INJ JOINT/BURSA W/O US Reviewed 06/03/2014 12:00 AM SYNVISC-ONE, Per 1 Mg (6ml) [facility] [address]-81 Reviewed 08/26/2014 12:00 AM RADIOLOGIC EXAM SACROILIAC JOINTS 3/MORE VIEWS Reviewed 01/20/2015 12:00 AM DRAIN/INJ JOINT/BURSA W/O US Reviewed 01/20/2015 12:00 AM SYNVISC-ONE, Per 1 Mg (6ml) [facility] [address]-33 Reviewed 02/24/2015 12:00 AM DRAIN/INJ JOINT/BURSA W/O US Reviewed 02/24/2015 12:00 AM SYNVISC-ONE, Per 1 Mg (6ml) [facility] [address]-05 Reviewed Results Summary Data and Description Results [...] Influenza 05/10/2016 sanofi pasteur PMC Fluzone Quadrivalent [id number] Intramuscular Left Upper Arm 05/10/2016 02/04/2015 141 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 Unknown 06/21/2016 07/01/2016 [...] both lower extremities Sep 26 2016 2:17PM Payers Insurance Name Company Name Plan Name Plan Number Policy Number Policy Group Number Start Date Medicare RHC Medicare RHC [id number] Saturday, 2001 Medicare Part A Medicare - Lab/Xray [id number] Saturday, December 29, 2001 Medicare Part B Medicare Of [place] [id number] Saturday, December 29, 2001 Medicare Part A Medicare Part A [id number] Saturday, December 29, 2001 History of Encounters Visit Date Visit Type Provider 09/28/2016 Office visit Maribel GUARDADO 09/26/2016 Office [...] visit Maribel GUARDADO 06/09/2015 Nurse visit Maribel ROBERTSP 05/17/2015 Office [...]
--- OUTSIDE RECORDS SUMMARY | 2018-07-23 11:19 | XMS REPORT ---
Author Author Maribel Vieira [facility] Address [address] [place], [place] [phone] Care Team Providers Care Rug Backing Stenciler Name Role Phone Maribel Vieira PCP Elias Malagon Unavailable Unavailable Deborah Linares Unavailable Unavailable Allergies and Adverse Reactions Name Reaction Notes PENICILLINS Plan of Treatment Planned Activity Comments Planned Date Planned Time Plan/Goal Lipid profile 09/06/2015 12:00 AM GENERAL HEALTH PANEL 09/06/2015 12:00 AM PSA TOTAL 09/06/2015 12:00 AM DAVID (Ankle Brachial Index). 09/26/2016 [...] AUTO W/O SCOPE Reviewed 05/10/2016 12:00 AM [facility] MEDICARE - flu vaccine administration Reviewed 05/10/2016 12:00 AM INFLUENZA VACCINE QUADRIVALENT 3 YRS PLUS IM Reviewed 06/07/2016 12:00 AM COMPLETE CBC W/AUTO DIFF WBC Returned 06/07/2016 12:00 AM COMPREHEN METABOLIC PANEL Returned 06/07/2016 12:00 AM ASSAY OF FERRITIN Returned 06/06/2016 12:00 AM CHEST X-RAY 2VW FRONTAL&LATL Returned 09/28/2016 12:00 AM CHEST X-RAY 2VW FRONTAL&LATL Returned 10/09/2012 12:00 AM DRAIN/INJ JOINT/BURSA W/O US Reviewed 10/09/2012 12:00 AM Kenalog, Per 10 Mg [facility]#2386-0759-43 Reviewed 06/04/2013 12:00 AM Drug Screen (Medicare) [...] (6ml) [facility] [address]-09 Reviewed 05/06/2014 12:00 AM OFFICE/OUTPATIENT VISIT EST Reviewed 06/03/2014 12:00 AM DRAIN/INJ JOINT/BURSA W/O US Reviewed 06/03/2014 12:00 AM SYNVISC-ONE, Per 1 Mg (6ml) [facility] [address]-28 Reviewed 08/26/2014 12:00 AM RADIOLOGIC EXAM SACROILIAC JOINTS 3/MORE VIEWS Reviewed 01/20/2015 12:00 AM DRAIN/INJ JOINT/BURSA W/O US Reviewed 01/20/2015 12:00 AM SYNVISC-ONE, Per 1 Mg (6ml) [facility] [address]-58 Reviewed 02/24/2015 12:00 AM DRAIN/INJ JOINT/BURSA W/O US Reviewed 02/24/2015 12:00 AM SYNVISC-ONE, Per 1 Mg (6ml) [facility] [address]-32 Reviewed Results Summary Data and Description Results [...] Influenza 05/10/2016 sanofi pasteur PMC Fluzone Quadrivalent [id number] Intramuscular Left Upper Arm 05/10/2016 02/04/2015 141 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 Unknown 06/21/2016 07/01/2016 [...] Number Start Date Medicare RHC Medicare RHC [id number] Saturday, 2001 Medicare Part A Medicare - Lab/Xray [id number] Saturday, December 29, 2001 Medicare Part B Medicare Of [place] [id number] Saturday, December 29, 2001 Medicare Part A Medicare Part A [id number] Saturday, December 29, 2001 History of Encounters Visit Date Visit Type Provider 09/28/2016 Office visit Maribel GUARDADO 09/26/2016 Office visit Maribel GUARDADO 08/29/2016 Office visit Maribel GUARDADO 08/01/2016 Laboratory Maribel GUARDADO 07/04/2016 Office visit Maribel GUARDAOD 06/07/2016 Laboratory Maribel GUARDADO 06/06/2016 Office visit [...] visit Maribel GUARDADO 06/09/2015 Nurse visit Maribel NealCharley Dariel ROBERTSP 05/17/2015 Office visit Maribel M. Dariel ROBERTSP 04/25/2015 Office visit Maribel ValCharley Dariel ROBERTSP 03/28/2015 Office visit Maribel Faith Dariel ROBERTSP 02/24/2015 Office visit Maribel Faith Dariel ROBERTSP 01/20/2015 Office visit Maribel Faith Dariel ROBERTSP 12/23/2014 Office visit Maribel ValCharley Dariel ROBERTSP 11/25/2014 Office visit Maribel ValCharley Dariel ROBERTSP 10/21/2014 Nurse visit Maribel ValCharley Dariel ROBERTSP 09/29/2014 Office visit Maribel Faith Dariel ROBERTSP 08/26/2014 Office visit Maribel M. Dariel ROBERTSP 07/29/2014 Nurse visit Maribel ValCharley Dariel ROBERTSP 06/29/2014 Nurse visit Maribel ValCharley Dariel ROBERTSP 06/03/2014 Office visit Maribel ValCharley Dariel ROBERTSP 05/06/2014 Nurse visit Maribel ValCharley Dariel ROBERTSP 04/08/2014 Nurse visit Maribel Vianney ROBERTSP 03/11/2014 Office visit Maribel ROBERTSP 02/11/2014 Office visit Maribel ROBERTSP 01/14/2014 Office visit Maribel ValCharley Dariel [...]
--- OUTSIDE RECORDS SUMMARY | 2018-07-23 11:20 | XMS REPORT ---
Author Author Maribel Vieira [facility] Address [address] [place], [place] [address] Care Team Providers Care Plywood Matcher Name Role Phone Maribel Vieira PCP Elias [...] 8 hours as needed for 30 days bupropion HCl 100 mg oral tablet 10/10/2015 TAKE 1 TABLET BY MOUTH THREE TIMES DAILY Symbicort 160-4.5 mcg/actuation inhalation HFA aerosol inhaler 10/19/2015 inhale 2 puffs by inhalation route 2 times per day in the morning and evening morphine 15 mg oral tablet extended release 10/19/2015 11/18/2015 Take one tablet twice daily at 8 am and 8pm morphine 30 mg oral tablet extended release 10/19/2015 11/18/2015 take 1 tablet by oral route daily for 30 days at lunch Name Start Date Expiration Date SIG Comments [...] substance abuse disabeled Did not serve in [employer] Disability History of Procedures Date Ordered Description Order Status 06/09/2015 12:00 AM OFFICE/OUTPATIENT VISIT EST Reviewed 09/01/2015 12:00 AM GENERAL HEALTH PANEL Reviewed 09/01/2015 12:00 AM ASSAY OF PSA TOTAL Reviewed 09/01/2015 12:00 AM LIPID PANEL Reviewed 10/09/2012 12:00 AM DRAIN/INJ JOINT/BURSA W/O US Reviewed 10/09/2012 12:00 AM Kenalog, Per [address] [facility]#[id number] Reviewed 06/04/2013 12:00 AM Drug Screen (Medicare) [...] AM SYNVISC-ONE, Per 1 Mg (6ml) [facility] [address]-98 Reviewed 05/06/2014 12:00 AM OFFICE/OUTPATIENT VISIT EST Reviewed 06/03/2014 12:00 AM DRAIN/INJ JOINT/BURSA W/O US Reviewed 06/03/2014 12:00 AM SYNVISC-ONE, Per 1 Mg (6ml) [facility] [address]-84 Reviewed 08/26/2014 12:00 AM RADIOLOGIC EXAM SACROILIAC JOINTS 3/MORE VIEWS Returned 01/20/2015 12:00 AM DRAIN/INJ JOINT/BURSA W/O US Reviewed 01/20/2015 12:00 AM SYNVISC-ONE, Per 1 Mg (6ml) [facility] [address]-78 Returned 02/24/2015 12:00 AM DRAIN/INJ JOINT/BURSA W/O US Reviewed 02/24/2015 12:00 AM SYNVISC-ONE, Per 1 Mg (6ml) [facility] [address]-58 Returned Results Summary Data and Description Results [...] 13.0 g/dLHCT 40.60 %MCV 94.0 fLMCH 30.20 pgHC 32.0 g/dLRDW CV 13.40 %MPV 10.0 fLPLT [...] Chronic Back Pain Oct 03 2015 1:23PM Payers Insurance Name Company Name Plan Name Plan Number Policy Number Policy Group Number Start Date Medicare Part A Medicare [facility] [id number] Saturday, 2001 Medicare Part B Medicare Of [place] [id number] Saturday, 2001 Medicare Part A Medicare Part A [id number] Saturday, 2001 History of Encounters Visit Date Visit Type Provider 10/03/2015 Office visit Maribel Faith Dariel ROBERTSP 09/06/2015 Laboratory Maribel Faith Dariel ROBERTSP 08/31/2015 Office visit Maribel M. [...] Faith Dariel ROBERTSP 12/23/2014 Office visit Maribel M. Dariel ROBERTSP 11/25/2014 Office visit Maribel ValCharley Dariel ROBERTSP 10/21/2014 Nurse visit Maribel Faith Draiel ROBERTSP 09/29/2014 Office visit Maribel Faith Dariel ROBERTSP 08/26/2014 Office visit Maribel ValCharley Dariel ROBERTSP 07/29/2014 Nurse visit Maribel ValCharley Dariel ROBERTSP 06/29/2014 Nurse visit Maribel ValCharley Dariel ROBERTSP 06/03/2014 Office visit Maribel ValCharley Dariel ROBERTSP 05/06/2014 Nurse visit Maribel ValCharley Dariel ROBERTSP 04/08/2014 Nurse visit Maribel ValCharley Dariel ROBERTSP 03/11/2014 Office visit Maribel NealCharley Dariel ROBERTSP 02/11/2014 Office visit Maribel ValCharley Dariel ROBERTSP 01/14/2014 Office visit Maribel NealCharley Dariel ROBERTSP 12/17/2013 Office visit Maribel ROBERTSP 11/19/2013 Office visit Maribel ROBERTSP 10/22/2013 Office visit Maribel ROBERTSP 09/24/2013 Office visit Maribel ROBERTSP 08/27/2013 Office visit Maribel ROBERTSP 07/02/2013 Office visit Maribel ROBERTSP 06/04/2013 Office visit Maribel GUARDADO 10/09/2012 Office visit Lloyd Oviedo MD 05/08/2010 Office visit Lloyd Oviedo MD 04/21/2010 Office visit Lloyd Oviedo MD
--- OUTSIDE RECORDS SUMMARY | 2018-07-23 11:22 | XMS REPORT ---
Author Author Maribel Vieira [facility] Address [address] [place], [place] [id number] Care Team Providers Care Dental Billing Specialist Name Role Phone Maribel Vieira PCP [...] substance abuse disabeled Did not serve in [employer] Disability History of Procedures Date Ordered Description [...] AUTO W/O SCOPE Reviewed 05/10/2016 12:00 AM [facility] MEDICARE - flu vaccine administration Reviewed 05/10/2016 [...] Per 10 Mg [facility]#8604-9736-50 Reviewed 06/04/2013 12:00 AM Drug Screen (Medicare) [...] 1 Mg (6ml) [facility] [address]-99 Reviewed 05/06/2014 12:00 AM OFFICE/OUTPATIENT VISIT EST Reviewed 06/03/2014 12:00 AM DRAIN/INJ JOINT/BURSA W/O US Reviewed 06/03/2014 12:00 AM SYNVISC-ONE, Per 1 Mg (6ml) [facility] [address]-67 Reviewed 08/26/2014 12:00 AM RADIOLOGIC EXAM SACROILIAC JOINTS 3/MORE VIEWS Reviewed 01/20/2015 12:00 AM DRAIN/INJ JOINT/BURSA W/O US Reviewed 01/20/2015 12:00 AM SYNVISC-ONE, Per 1 Mg (6ml) [facility] [address]-14 Reviewed 02/24/2015 12:00 AM DRAIN/INJ JOINT/BURSA W/O US Reviewed 02/24/2015 12:00 AM SYNVISC-ONE, Per 1 Mg (6ml) [facility] [address]-87 Reviewed Results Summary Date and Description Results [...] Given Vis Pub CVX Influenza 05/10/2016 [facility] PMC Fluzone Quadrivalent [id number] Intramuscular Left Upper Arm 05/10/2016 02/04/2015 141 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 Dariel ROBERTSP 08/03/2015 Office visit Maribel M. Dariel ROBERTSP 07/06/2015 Office visit Maribel M. Dariel ROBERTSP 06/09/2015 Nurse visit Maribel Faith Dariel ROBERTSP 05/17/2015 Office visit Maribel Faith Dariel ROBERTSP 04/25/2015 Office visit Maribel ValCharley Dariel ROBERTSP 03/28/2015 Office visit Maribel M. Dariel ROBERTSP 02/24/2015 Office visit Maribel Faith Dariel ROBERTSP 01/20/2015 Office visit Maribel Vieira REGIONAL HR MANAGER 12/23/2014 Office visit Mairbel M. Dariel ROBERTSP 11/25/2014 Office visit Maribel [...]
--- OUTSIDE RECORDS SUMMARY | 2018-07-23 11:24 | XMS REPORT ---
Author Author Maribel Vieira [facility] Address [address] [place], [place] [id number] Care Team Providers Care Needle Straightener Name Role Phone Maribel Vieira PCP Elias [...] AM Kenalog, Per [address] [facility]#[id number] Reviewed 06/04/2013 12:00 AM Drug Screen (Medicare) [...] SYNVISC-ONE, Per 1 Mg (6ml) [facility] [address]-28 Reviewed 05/06/2014 12:00 AM OFFICE/OUTPATIENT VISIT EST Reviewed 06/03/2014 12:00 AM DRAIN/INJ JOINT/BURSA W/O US Reviewed 06/03/2014 12:00 AM SYNVISC-ONE, Per 1 Mg (6ml) [facility] [address]-85 Reviewed 08/26/2014 12:00 AM RADIOLOGIC EXAM SACROILIAC JOINTS 3/MORE VIEWS Returned 01/20/2015 12:00 AM DRAIN/INJ JOINT/BURSA W/O US Reviewed 01/20/2015 12:00 AM SYNVISC-ONE, Per 1 Mg (6ml) [facility] [address]-70 Returned 02/24/2015 12:00 AM DRAIN/INJ JOINT/BURSA W/O US Reviewed 02/24/2015 12:00 AM SYNVISC-ONE, Per 1 Mg (6ml) [facility] [address]-39 Returned Results Summary Data and Description Results [...] mellitus with complications Jul 06 2015 2:01PM Payers Insurance Name Company Name Plan Name Plan Number Policy Number Policy Group Number Start Date Medicare Part A Medicare Part A [id number] Saturday, 2001 Medicare Part B Medicare Of [place] [id number] Saturday, 2001 History of Encounters Visit Date [...] Office visit Maribel GUARDADO 07/29/2014 Nurse visit Marbiel GUARDADO 06/29/2014 Nurse visit Maribel GUARDADO 06/03/2014 [...]
--- OUTSIDE RECORDS SUMMARY | 2018-07-23 11:25 | XMS REPORT ---
Author Author Maribel Veiira [facility] Address [address] [place], [place] [address] Care Team Providers Care Director Of Archives Name Role Phone Maribel Vieira PCP Elias [...] solution 03/28/2017 INJECT 160 UNITS DAILY [facility]11.43. [facility] miscellaneous strip 03/28/2017 Use [...] mg) by oral route once daily risperidone 0.5 mg oral tablet 05/28/2017 WEAN by 0.5 mg weekly - called to [facility] Lyrica 50 mg oral capsule 06/19/2017 08/18/2017 [...] 2 times a day for 7 days Percocet 10-325 mg oral tablet 07/17/2017 08/16/2017 [...] to test blood sugar six times daily aspirin 325 mg oral tablet,delayed release [...] TEST Returned 05/21/2017 12:00 AM [facility] MEDICARE - flu vaccine administration Reviewed 05/21/2017 12:00 AM INFLUENZA VAC 4 VALENT PRSRV FREE 3 YRS PLUS IM Reviewed 10/09/2012 12:00 AM DRAIN/INJ JOINT/BURSA W/O US Reviewed 10/09/2012 12:00 AM Kenalog, Per 10 Mg [facility]#8488-2459-47 Reviewed 06/04/2013 12:00 AM Drug Screen (Medicare) [...] 12:00 AM SYNVISC-ONE, Per 1 Mg (6ml) [facility] [address]-69 Reviewed 05/06/2014 12:00 AM OFFICE/OUTPATIENT VISIT EST Reviewed 06/03/2014 12:00 AM DRAIN/INJ JOINT/BURSA W/O US Reviewed 06/03/2014 12:00 AM SYNVISC-ONE, Per 1 Mg (6ml) [facility] [address]-64 Reviewed 08/26/2014 12:00 AM RADIOLOGIC EXAM SACROILIAC JOINTS 3/MORE VIEWS Reviewed 01/20/2015 12:00 AM DRAIN/INJ JOINT/BURSA W/O US Reviewed 01/20/2015 12:00 AM SYNVISC-ONE, Per 1 Mg (6ml) [facility] [address]-37 Reviewed 02/24/2015 12:00 AM DRAIN/INJ JOINT/BURSA W/O US Reviewed 02/24/2015 12:00 AM SYNVISC-ONE, Per 1 Mg (6ml) [facility] [address]-37 Reviewed Results Summary Date and Description Results [...] Influenza 05/10/2016 [facility] PMC Fluzone Quadrivalent [id number] Intramuscular Left Upper Arm 05/10/2016 02/04/2015 141 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 06/21/2016 [...] every day smoker Jul 17 2017 1:29PM Payers Insurance Name Company Name Plan Name Plan Number Policy Number Policy Group Number Start Date Medicare RHC Medicare RHC [id number] Saturday, 2001 Medicare Part A Medicare - Lab/Xray [id number] Saturday, December 29, 2001 Medicare Part B Medicare Of [place] [id number] Saturday, December 29, 2001 Medicare Part A Medicare Part A [id number] Saturday, December 29, 2001 History of Encounters Visit Date Visit Type Provider 07/17/2017 Office visit Maribel GUARDADO 06/19/2017 Office visit Maribel GUARDADO 06/05/2017 Office visit Maribel GUARDADO 05/28/2017 Office visit Maribel GUARDADO 05/21/2017 Office visit Mraibel GUARDADO 02/20/2017 Office visit Maribel GUARDADO 01/16/2017 Office visit Maribel GUARDADO 12/19/2016 Office visit Maribel GUARDADO 12/03/2016 Laboratory Maribel GUARDADO 11/21/2016 Office visit Maribel GUARDADO 10/26/2016 Office visit Maribel GUARDADO 10/04/2016 Office visit Maribel GUARDADO 09/28/2016 Office visit Maribel Faith Dariel ROBERTSP 09/26/2016 Office visit Maribel ValCharley Dariel ROBERTSP 08/29/2016 Office visit Maribel M. Dariel ROBERTSP 08/01/2016 Laboratory Maribel Faith Dariel BOTTOM CEMENTER 07/04/2016 Office visit Maribel Vieira BOTTOM CEMENTER 06/07/2016 Laboratory Maribel Vieira BOTTOM CEMENTER 06/06/2016 Office visit Maribel ValCharley Dariel ROBERTSP 05/09/2016 Office visit Maribel M. Dariel ROBERTSP 03/07/2016 Office visit Maribel Faith Dariel ROBERTSP 02/08/2016 Office visit Maribel M. Dariel ROBERTSP 01/11/2016 Office visit Maribel M. Dariel ROBERTSP 12/14/2015 Office visit Maribel M. Dariel ROBERTSP 11/14/2015 Office visit Maribel Faith Dariel ROBERTSP 10/03/2015 Office visit Maribel Faith Dariel ROBERTSP 09/06/2015 Laboratory Maribel M. Dariel ROBERTSP 08/31/2015 Office visit Maribel NealCharley Dariel ROBERTSP 08/03/2015 Office visit Maribel ValCharley Dariel ROBERTSP 07/06/2015 Office visit Maribel M. Dariel ROBERTSP 06/09/2015 Nurse visit Maribel M. Dariel ROBERTSP 05/17/2015 Office visit Maribel ROBERTSP 04/25/2015 Office visit Maribel Vianney ROBERTSP 03/28/2015 Office visit Maribel Faith Dariel ROBERTSP 02/24/2015 Office visit Maribel M. Dariel ROBERTSP 01/20/2015 Office visit Maribel ROBERTSP 12/23/2014 Office visit Maribel ROBERTSP 11/25/2014 Office visit Maribel ROBERTSP 10/21/2014 Nurse visit Maribel NealCharley Dariel ROBERTSP 09/29/2014 Office visit Maribel NealCharley Dariel ROBERTSP 08/26/2014 Office visit Maribel ROBERTSP 07/29/2014 Nurse visit Maribel ROBERTSP 06/29/2014 Nurse visit Maribel ROBERTSP 06/03/2014 Office visit Maribel ROBERTSP 05/06/2014 Nurse visit Maribel ROBERTSP 04/08/2014 Nurse visit Mairbel ROBERTSP 03/11/2014 Office visit Maribel ROBERTSP 02/11/2014 [...]
--- OUTSIDE RECORDS SUMMARY | 2018-07-23 11:26 | XMS REPORT ---
Author Author Maribel Vieira Organization [facility] Address [address] [place], [place] [address] Care Team Providers Care Viner Operator Name Role Phone Maribel Vieira PCP Elias Malagon Unavailable Unavailable Deborah Linares Unavailable Unavailable Allergies and Adverse Reactions Name Reaction Notes PENICILLINS Plan of Treatment Planned Activity Comments Planned Date Planned Time Plan/Goal Lipid profile 09/06/2015 12:00 AM GENERAL HEALTH PANEL 09/06/2015 12:00 AM PSA TOTAL 09/06/2015 12:00 AM Chest PA and Lateral - Main 09/28/2016 12:00 AM T1DM - insulin pump -current [...] inhalation route every 4-6 hours as needed Name Start Date Expiration Date SIG Comments [...] 10/09/2012 12:00 AM Kenalog, Per 10 Mg [facility]#0381-6084-70 Reviewed 06/04/2013 12:00 AM Drug Screen (Medicare) [...] 12:00 AM SYNVISC-ONE, Per 1 Mg (6ml) [facility] [address]-14 Reviewed 05/06/2014 12:00 AM OFFICE/OUTPATIENT VISIT EST Reviewed 06/03/2014 12:00 AM DRAIN/INJ JOINT/BURSA W/O US Reviewed 06/03/2014 12:00 AM SYNVISC-ONE, Per 1 Mg (6ml) [facility] [address]-37 Reviewed 08/26/2014 12:00 AM RADIOLOGIC EXAM SACROILIAC JOINTS 3/MORE VIEWS Reviewed 01/20/2015 12:00 AM DRAIN/INJ JOINT/BURSA W/O US Reviewed 01/20/2015 12:00 AM SYNVISC-ONE, Per 1 Mg (6ml) [facility] [address]-57 Reviewed 02/24/2015 12:00 AM DRAIN/INJ JOINT/BURSA W/O US Reviewed 02/24/2015 12:00 AM SYNVISC-ONE, Per 1 Mg (6ml) [facility] [address]-72 Reviewed Results Summary Data and Description Results [...] Influenza 05/10/2016 [facility] PMC Fluzone Quadrivalent [id number] Intramuscular Left Upper Arm 05/10/2016 02/04/2015 141 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
[2018-07-23] MEDS ORDERED: MIDAZOLAM 5 MG/5 ML (VERSED) VIAL ONE (11:29)
--- OUTSIDE RECORDS SUMMARY | 2018-07-23 11:29 | XMS REPORT ---
Author Author Maribel Vieira [facility] Address [address] [place], [place] [address] Care Team Providers Care Blueprint Reproducer Name Role Phone Maribel Vieira PCP Elias [...] substance abuse disabeled Did not serve in [employer] Security Disability History of Procedures Date Ordered [...] AUTO W/O SCOPE Reviewed 05/10/2016 12:00 AM [facility] MEDICARE - flu vaccine administration Reviewed [...] 12:00 AM Kenalog, Per 10 Mg [facility]#7719-0050-10 Reviewed 06/04/2013 12:00 AM Drug Screen (Medicare) [...] AM SYNVISC-ONE, Per 1 Mg (6ml) [facility] [address]-06 Reviewed 05/06/2014 12:00 AM OFFICE/OUTPATIENT VISIT EST Reviewed 06/03/2014 12:00 AM DRAIN/INJ JOINT/BURSA W/O US Reviewed 06/03/2014 12:00 AM SYNVISC-ONE, Per 1 Mg (6ml) [facility] [address]-12 Reviewed 08/26/2014 12:00 AM RADIOLOGIC EXAM SACROILIAC JOINTS 3/MORE VIEWS Reviewed 01/20/2015 12:00 AM DRAIN/INJ JOINT/BURSA W/O US Reviewed 01/20/2015 12:00 AM SYNVISC-ONE, Per 1 Mg (6ml) [facility] [address]-93 Reviewed 02/24/2015 12:00 AM DRAIN/INJ JOINT/BURSA W/O US Reviewed 02/24/2015 12:00 AM SYNVISC-ONE, Per 1 Mg (6ml) [facility] [address]-90 Reviewed Results Summary Data and Description Results [...] Influenza 05/10/2016 [facility] PMC Fluzone Quadrivalent [id number] Intramuscular Left Upper Arm 05/10/2016 02/04/2015 141 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 Unknown 06/21/2016 [...] Number Start Date Medicare RHC Medicare RHC [id number] Saturday, 2001 Medicare Part A Medicare - Lab/Xray [id number] Saturday, December 29, 2001 Medicare Part B Medicare Of [place] [id number] Saturday, December 29, 2001 Medicare Part A Medicare Part A [id number] Saturday, December 29, 2001 History of Encounters [...] visit Maribel GUARDADO 01/20/2015 Office visit Maribel UGARDADO 12/23/2014 Office visit Maribel GUARDADO 11/25/2014 Office visit Maribel GUARDADO 10/21/2014 Nurse visit Maribel GUARDADO 09/29/2014 Office visit Maribel GUARDADO 08/26/2014 Office visit Maribel GUARDADO 07/29/2014 Nurse visit Maribel Vieira [place] 06/29/2014 Nurse visit Maribel ROBERTSP 06/03/2014 Office [...]
--- OUTSIDE RECORDS SUMMARY | 2018-07-23 11:32 | XMS REPORT ---
Author Author Maribel Vieira [facility] Address [address] [place], [place] [address] Care Team Providers Care Histologist Name Role Phone Maribel Vieira PCP Elias [...] substance abuse disabeled Did not serve in [employer] Social Security Disability History of Procedures Date [...] 10/09/2012 12:00 AM Kenalog, Per 10 Mg [facility]#0601-9908-35 Reviewed 06/04/2013 12:00 AM Drug Screen (Medicare) [...] 12:00 AM SYNVISC-ONE, Per 1 Mg (6ml) [facility] [address]-17 Reviewed 05/06/2014 12:00 AM OFFICE/OUTPATIENT VISIT EST Reviewed 06/03/2014 12:00 AM DRAIN/INJ JOINT/BURSA W/O US Reviewed 06/03/2014 12:00 AM SYNVISC-ONE, Per 1 Mg (6ml) [facility] [address]-55 Reviewed 08/26/2014 12:00 AM RADIOLOGIC EXAM SACROILIAC JOINTS 3/MORE VIEWS Returned 01/20/2015 12:00 AM DRAIN/INJ JOINT/BURSA W/O US Reviewed 01/20/2015 12:00 AM SYNVISC-ONE, Per 1 Mg (6ml) [facility] [address]-51 Returned 02/24/2015 12:00 AM DRAIN/INJ JOINT/BURSA W/O US Reviewed 02/24/2015 12:00 AM SYNVISC-ONE, Per 1 Mg (6ml) [facility] [address]-34 Returned Results Summary Data and Description Results [...] Number Start Date Medicare Part A Medicare [facility] [id number] Saturday, 2001 Medicare Part A Medicare - Lab/Xray [id number] Saturday, December 29, 2001 Medicare Part B Medicare Of [place] [id number] Saturday, December 29, 2001 Medicare Part A Medicare Part A [id number] Saturday, December 29, 2001 History of Encounters [...] visit Maribel GUARDADO 03/28/2015 Office visit Maribel UGARDADO 02/24/2015 Office visit Maribel GUARDADO 01/20/2015 Office [...]
--- OUTSIDE RECORDS SUMMARY | 2018-07-23 11:33 | XMS REPORT ---
Author Author [facility] Organization [facility] Address [address] [place], [place] [address] Care Team Providers Care Title I Teacher Name Role Phone PCP Unavailable Allergies and [...] topical route 4 times per day Synvisc-One intra-articular syringe 48 mg/6 mL 12/23/2014 inject 6 milliliters by intra-articular route into the left knee morphine oral tablet extended release 15 mg 01/20/2015 02/19/2015 Take 30 mg in the morning and 15 mg in the evening. Percocet oral tablet 10-325 mg 01/20/2015 02/19/2015 take 1 tablet by oral route every [...] HC BMI BSA BMI Percentile O2 Sat(%) 01/20/2015 1:49:00 PM 128 mmHg 78 mmHg [...] JOINT/BURSA W/O US Reviewed 01/20/2015 12:00 AM DRAIN/INJ JOINT/BURSA W/O [...] Left Pain, knee Jan 20 2015 1:29PM Payers Insurance Name Company Name Plan Name Plan Number Policy Number Policy Group Number Start Date Medicare Part B Medicare Of [place] [id number] Saturday, 2001 History of Encounters Visit Date Visit Type Provider 01/20/2015 Office visit Maribel GUARDADO 12/23/2014 Office visit Maribel GUARDADO 11/25/2014 Office visit Maribel GUARDADO 10/21/2014 Nurse visit Maribel GUARDADO 09/29/2014 Office visit Maribel GUARDADO 08/26/2014 Office visit Maribel GUARDADO 07/29/2014 Nurse visit Maribel GUARDADO 06/29/2014 Nurse visit Maribel GUARDADO 06/03/2014 Office visit Maribel GUARDADO 05/06/2014 Nurse visit Maribel GUARDADO 04/08/2014 Nurse visit Maribel GUARDADO 03/11/2014 Office visit Maribel GAURDADO 02/11/2014 Office visit Maribel GUARDADO 01/14/2014 Office [...]
--- OUTSIDE RECORDS SUMMARY | 2018-07-23 11:34 | XMS REPORT ---
Author Author Maribel Vieira [facility] Address [address] [place], [place] [address] Care Team Providers Care Lock Tender Name Role Phone Maribel Vieira PCP Elias Malagon Unavailable Unavailable Deborah Linares Unavailable Unavailable Allergies and Adverse Reactions Name Reaction Notes PENICILLINS Plan of Treatment Planned Activity Comments Planned Date Planned Time Plan/Goal LIPID PANEL 09/06/2015 12:00 AM GENERAL HEALTH PANEL 09/06/2015 12:00 AM ASSAY OF PSA TOTAL 09/06/2015 12:00 AM URINALYSIS AUTO W/SCOPE 12/14/2015 12:00 AM Medications Active Name Start Date [...] Kenalog, Per 10 Mg [facility]#7024-2183-75 Reviewed 06/04/2013 12:00 AM Drug Screen (Medicare) [...] Per 1 Mg (6ml) [facility] [address]-44 Reviewed 05/06/2014 12:00 AM OFFICE/OUTPATIENT VISIT EST Reviewed 06/03/2014 12:00 AM DRAIN/INJ JOINT/BURSA W/O US Reviewed 06/03/2014 12:00 AM SYNVISC-ONE, Per 1 Mg (6ml) [facility] [address]-63 Reviewed 08/26/2014 12:00 AM RADIOLOGIC EXAM SACROILIAC JOINTS 3/MORE VIEWS Returned 01/20/2015 12:00 AM DRAIN/INJ JOINT/BURSA W/O US Reviewed 01/20/2015 12:00 AM SYNVISC-ONE, Per 1 Mg (6ml) [facility] [address]-45 Returned 02/24/2015 12:00 AM DRAIN/INJ JOINT/BURSA W/O US Reviewed 02/24/2015 12:00 AM SYNVISC-ONE, Per 1 Mg (6ml) [facility] [address]-76 Returned Results Summary Data and Description Results [...] region b 2015 1:55PM Radiculopathy, lumbar region Aug 03 2015 1:55PM Chronic Back Pain b 2015 1:55PM Essential Hypertension Aug 31 2015 1:18PM Hyperlipidemia Aug 31 2015 1:18PM Congestive Heart Failure Aug 31 2015 1:18PM Radiculopathy, lumbar region Aug 30 2016 1:18PM Chronic Back Pain Aug 30 2016 1:18PM Type 1 diabetes mellitus with complications Aug 30 2016 1:18PM Acquired hypothyroidism Aug 31 2015 1:18PM [...] 2015 1:28PM Hematuria Dec 14 2015 1:56PM Payers Insurance Name Company Name Plan Name Plan Number Policy Number Policy Group Number Start Date Medicare Part A Medicare RHC [id number] Saturday, 2001 Medicare Part A Medicare - Lab/Xray [id number] Saturday, December 29, 2001 Medicare Part B Medicare Of [place] [id number] Saturday, December 29, 2001 Medicare Part A Medicare Part A [id number] Saturday, December 29, 2001 History of Encounters [...] visit Maribel GUARDADO 09/29/2014 Office visit Maribel ROBERTSP 08/26/2014 Office [...]
--- OUTSIDE RECORDS SUMMARY | 2018-07-23 11:37 | XMS REPORT ---
Author Author [facility] Organization [facility] Address [address] [place], [place] [address] Care Team Providers Care Blocker And Sewer Name Role Phone PCP Unavailable Allergies and [...] oral tablet 25 mcg 1 tab daily cyclobenzaprine oral tablet 10 mg 05/06/2014 11/02/2014 TAKE 1 TAB BY MOUTH EVERY 8 HOURS NEEDED FOR SPASM. for 30 days Neurontin oral capsule 300 mg 10/04/2014 TAKE 2 CAPSULES (600 MG) BY ORAL ROUTE 3 TIMES PER DAY FOR 30 DAYS Percocet oral tablet 10-325 mg 10/28/2014 11/27/2014 take 1 tablet by oral route every 6 hours as needed for 30 days MS Contin oral tablet extended release 30 mg 10/28/2014 11/27/2014 take 1 tablet (30 mg) by oral route every 12 hours for 30 days Name Start Date Expiration Date SIG Comments Neurontin oral capsule 300 mg 03/11/2014 08/08/2014 take 2 capsules (600 mg) by oral route 3 times per day for 30 days Discontinued Name Start Date [...] (75 mg) by oral route once daily Problem List Description Status Onset Congestive Heart [...] HC BMI BSA BMI Percentile O2 Sat(%) 09/29/2014 4:13:00 PM 323 lbs 08/26/2014 8:54:00 [...] Chronic pain syndrome Oct 21 2014 8:36AM Payers Insurance Name Company Name Plan Name Plan Number Policy Number Policy Group Number Start Date Medicare Part B Medicare Of [place] [id number] Saturday, 2001 History of Encounters Visit Date Visit Type Provider 10/21/2014 Nurse visit Maribel GUARDADO 09/29/2014 Office [...]
--- OUTSIDE RECORDS SUMMARY | 2018-07-23 11:38 | XMS REPORT ---
Author Author Maribel Vieira [facility] Address [address] [place], [place] [address] Care Team Providers Care Experimental Electronics Developer Name Role Phone Maribel Vieira PCP Elias [...] once daily at bedtime for 30 days Ranexa 1,000 mg oral [...] Prevacid 30 mg oral capsule,delayed release(DR/EC) 10/31/2015 07/27/2016 take 1 capsule (30 mg) by oral route once daily before a meal for 90 days Cymbalta 60 mg oral capsule,delayed release(DR/EC) 10/31/2015 [...] by oral route daily for 60 days Percocet 10-325 mg oral tablet 10/03/2015 11/02/2015 take 1 tablet by oral route every 8 hours as needed for 30 days duloxetine 60 mg oral capsule,delayed release(DR/EC) [...] 12:00 AM Kenalog, Per 10 Mg [facility]#3821-7897-05 Reviewed 06/04/2013 12:00 AM Drug Screen (Medicare) [...] AM SYNVISC-ONE, Per 1 Mg (6ml) [facility] [address]-33 Reviewed 05/06/2014 12:00 AM OFFICE/OUTPATIENT VISIT EST Reviewed 06/03/2014 12:00 AM DRAIN/INJ JOINT/BURSA W/O US Reviewed 06/03/2014 12:00 AM SYNVISC-ONE, Per 1 Mg (6ml) [facility] [address]-97 Reviewed 08/26/2014 12:00 AM RADIOLOGIC EXAM SACROILIAC JOINTS 3/MORE VIEWS Returned 01/20/2015 12:00 AM DRAIN/INJ JOINT/BURSA W/O US Reviewed 01/20/2015 12:00 AM SYNVISC-ONE, Per 1 Mg (6ml) [facility] [address]-71 Returned 02/24/2015 12:00 AM DRAIN/INJ JOINT/BURSA W/O US Reviewed 02/24/2015 12:00 AM SYNVISC-ONE, Per 1 Mg (6ml) [facility] [address]-89 Returned Results Summary Data and Description Results [...] 11:37AM Hypothyroidism, Acquired Nov 03 2015 11:37AM Payers Insurance Name Company Name Plan Name Plan Number Policy Number Policy Group Number Start Date Medicare Part A Medicare RHC [id number] Saturday, 2001 Medicare Part B Medicare Of [place] [id number] Saturday, 2001 Medicare Part A Medicare Part A [id number] Saturday, 2001 History of Encounters Visit Date [...]
--- OUTSIDE RECORDS SUMMARY | 2018-07-23 11:41 | XMS REPORT ---
Author Author Maribel Vieira [facility] Address [address] [place], [place] [id number] Care Team Providers Care Property Custodian Name Role Phone Maribel Vieira PCP Elias [...] solution 03/28/2017 INJECT 160 UNITS DAILY DXE11.43. [employer]surant Monitoringuch Ultra Test miscellaneous strip 03/28/2017 Use to [...] at bedtime Percocet 10-325 mg oral tablet 02/19/2018 03/21/2018 [...] 1 ( 20mg) tablet QD, (60mgs OD). [employer] Monitoringuch Ultra Test miscellaneous strip 04/30/2017 04/30/2017 Use to test blood sugar six times daily Aspirin 325 mg Oral Tablet 05/07/2017 take 1 tablet (325 mg) by oral route once daily aspirin 325 mg oral tablet,delayed release (DR/EC) 05/10/2017 07/09/2017 TAKE 1 TABLET BY MOUTH ONCE A DAY risperidone 0.5 mg oral tablet 05/28/2017 WEAN by 0.5 mg weekly - called to [place] [facility] potassium chloride 10 mEq oral tablet [...] AUTO W/O SCOPE Reviewed 05/10/2016 12:00 AM [facility] MEDICARE - flu vaccine administration Reviewed [...] AB TEST Returned 05/21/2017 12:00 AM [facility] MEDICARE - flu vaccine administration Reviewed [...] Kenalog, Per 10 Mg [facility]#[id number] Reviewed 12/30/2017 12:00 AM COMPLETE CBC W/AUTO [...] Per 1 Mg (6ml) [facility] [address]-60 Reviewed 05/06/2014 12:00 AM OFFICE/OUTPATIENT VISIT EST Reviewed 06/03/2014 12:00 AM DRAIN/INJ JOINT/BURSA W/O US Reviewed 06/03/2014 12:00 AM SYNVISC-ONE, Per 1 Mg (6ml) [facility] [address]-51 Reviewed 08/26/2014 12:00 AM RADIOLOGIC EXAM SACROILIAC JOINTS 3/MORE VIEWS Reviewed 01/20/2015 12:00 AM DRAIN/INJ JOINT/BURSA W/O US Reviewed 01/20/2015 12:00 AM SYNVISC-ONE, Per 1 Mg (6ml) [facility] [id number] Reviewed 02/24/2015 12:00 AM DRAIN/INJ JOINT/BURSA W/O US Reviewed 02/24/2015 12:00 AM SYNVISC-ONE, Per 1 Mg (6ml) [facility] [address]-95 Reviewed Results Summary Date and Description Results [...] Influenza 05/10/2016 sanofi pasteur PMC Fluzone Quadrivalent [id number] Intramuscular Left Upper Arm 05/10/2016 02/04/2015 141 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/2013 Unknown 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 Dariel ROBERTSP 06/07/2016 Laboratory Maribel Faith Dariel ROBERTSP 06/06/2016 Office visit Maribel Faith Dariel ROBERTSP 05/09/2016 Office visit Maribel ValCharley Dariel ROBERTSP 03/07/2016 Office visit Maribel ROBERTSP 02/08/2016 Office visit Maribel ValCharley Dariel ROBERTSP 01/11/2016 Office visit Maribel M. Dariel ROBERTSP 12/14/2015 Office visit Maribel M. Dariel ROBERTSP 11/14/2015 Office visit Maribel NealCharley Dariel ROBERTSP 10/03/2015 Office visit Maribel ValCharley Dariel ROBERTSP 09/06/2015 Laboratory Maribel M. Dariel ROBERTSP 08/31/2015 Office visit Maribel Faith Dariel ROBERTSP 08/03/2015 Office visit Maribel ValCharley Dariel ROBERTSP 07/06/2015 Office visit Maribel ROBERTSP 06/09/2015 Nurse visit Maribel ROBERTSP 05/17/2015 Office visit Maribel M. Dariel ROBERTSP 04/25/2015 Office visit Maribel M. Dariel ROBERTSP 03/28/2015 Office visit Maribel ROBERTSP 02/24/2015 Office visit Maribel ROBERTSP 01/20/2015 Office visit Maribel M. Dariel ROBERTSP 12/23/2014 Office visit Maribel M. Dariel ROBERTSP 11/25/2014 Office visit Maribel ROBERTSP [...] visit Maribel ROBERTSP 12/17/2013 Office visit Maribel GUARDADO 11/19/2013 Office visit Maribel GUARDADO 10/22/2013 Office visit Maribel GUARDADO 09/24/2013 Office visit Maribel GUARDADO 08/27/2013 Office visit Maribel ROBERTSP 07/02/2013 Office visit Maribel GUARDADO 06/04/2013 Office visit Maribel GUARDADO 10/09/2012 Office visit Lloyd Oviedo MD 05/08/2010 Office visit Lloyd Oviedo MD 04/21/2010 Office visit Lloyd Oviedo MD
--- OUTSIDE RECORDS SUMMARY | 2018-07-23 11:44 | XMS REPORT ---
Author Author [facility] Organization [facility] Address [address] [place], [place] [id number] Care Team Providers Care Doll Eye Setter Name Role Phone PCP Unavailable Allergies and [...] Date Medicare Part B Medicare Of [place] [id number] Saturday, 2001 History of Encounters Visit Date [...]
--- OUTSIDE RECORDS SUMMARY | 2018-07-23 11:45 | XMS REPORT ---
Author Author Maribel Vieira [facility] Address [address] [place], [place] [id number] Care Team Providers Care Coal Passer Name Role Phone Maribel Vieira PCP Elias [...] substance abuse disabeled Did not serve in [employer] Disability History of Procedures Date Ordered Description [...] AUTO W/O SCOPE Reviewed 05/10/2016 12:00 AM [facility] MEDICARE - flu vaccine administration Reviewed [...] 12:00 AM Kenalog, Per 10 Mg [facility]#[id number] Reviewed 06/04/2013 12:00 AM Drug Screen (Medicare) [...] SYNVISC-ONE, Per 1 Mg (6ml) [facility] [address]-25 Reviewed 05/06/2014 12:00 AM OFFICE/OUTPATIENT VISIT EST Reviewed 06/03/2014 12:00 AM DRAIN/INJ JOINT/BURSA W/O US Reviewed 06/03/2014 12:00 AM SYNVISC-ONE, Per 1 Mg (6ml) [facility] [address]-09 Reviewed 08/26/2014 12:00 AM RADIOLOGIC EXAM SACROILIAC JOINTS 3/MORE VIEWS Reviewed 01/20/2015 12:00 AM DRAIN/INJ JOINT/BURSA W/O US Reviewed 01/20/2015 12:00 AM SYNVISC-ONE, Per 1 Mg (6ml) [facility] [address]-37 Reviewed 02/24/2015 12:00 AM DRAIN/INJ JOINT/BURSA W/O US Reviewed 02/24/2015 12:00 AM SYNVISC-ONE, Per 1 Mg (6ml) [facility] [address]-92 Reviewed Results Summary Date and Description Results [...] Influenza 05/10/2016 sanofi pasteur PMC Fluzone Quadrivalent [id number] Intramuscular Left Upper Arm 05/10/2016 02/04/2015 141 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/2013 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 UNK Unknown 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 Unknown 06/21/2016 07/01/2017 [...] Number Start Date Medicare RHC Medicare RHC [id number] Saturday, 2001 Medicare Part A Medicare - Lab/Xray [id number] Saturday, December 29, 2001 Medicare Part B Medicare Of [place] [id number] Saturday, December 29, 2001 Medicare Part A Medicare Part A [id number] Saturday, December 29, 2001 History of Encounters [...] Laboratory Maribel GUARDADO 08/31/2015 Office visit Maribel Vieira CAP JEWEL PLATE ASSEMBLER 08/03/2015 Office visit Maribel Faith Dariel ROBERTSP 07/06/2015 Office visit Maribel ValCharley Dariel ROBERTSP 06/09/2015 Nurse visit Maribel Faith Dariel ROBERTSP 05/17/2015 Office visit Maribel Faith Dariel ROBERTSP 04/25/2015 Office visit Maribel Faith Dariel ROBERTSP 03/28/2015 Office visit Maribel M. Dariel ROBERTSP 02/24/2015 Office visit Maribel Faith Dariel ROBERTSP 01/20/2015 Office visit Maribel Vieira CAP JEWEL PLATE ASSEMBLER 12/23/2014 Office visit Maribel Vieira CAP JEWEL PLATE ASSEMBLER 11/25/2014 Office visit Maribel ValCharley Dariel ROBERTSP [...] ValCharley Dariel ROBERTSP 11/19/2013 Office visit Maribel ROBERTSP 10/22/2013 Office visit Maribel ROBERTSP 09/24/2013 Office visit Maribel ROBERTSP 08/27/2013 Office visit Maribel ROBERTSP 07/02/2013 Office visit Maribel ROBERTSP 06/04/2013 Office visit Maribel GUARDADO 10/09/2012 Office visit Lloyd Oviedo MD 05/08/2010 Office visit Lloyd Oviedo MD 04/21/2010 Office visit Lloyd Oviedo MD
--- OUTSIDE RECORDS SUMMARY | 2018-07-23 11:46 | XMS REPORT ---
Author Author Maribel Vieira [facility] Address [address] [place], [place] [address] Care Team Providers Care Flight Readiness Technician Name Role Phone Maribel Vieira PCP Allergies [...] abuse disabeled Did not serve in recieving [employer] Security Disability History of Procedures Date Ordered Description Order Status 06/09/2015 12:00 AM OFFICE/OUTPATIENT VISIT EST Reviewed 10/09/2012 12:00 AM DRAIN/INJ JOINT/BURSA W/O US Reviewed 10/09/2012 12:00 AM Kenalog, Per 10 Mg [facility]#[id number] Reviewed 06/04/2013 12:00 AM Drug Screen (Medicare) [...] Per 1 Mg (6ml) [facility] [address]-83 Reviewed 05/06/2014 12:00 AM OFFICE/OUTPATIENT VISIT EST Reviewed 06/03/2014 12:00 AM DRAIN/INJ JOINT/BURSA W/O US Reviewed 06/03/2014 12:00 AM SYNVISC-ONE, Per 1 Mg (6ml) [facility] [address]-66 Reviewed 08/26/2014 12:00 AM RADIOLOGIC EXAM SACROILIAC JOINTS 3/MORE VIEWS Returned 01/20/2015 12:00 AM DRAIN/INJ JOINT/BURSA W/O US Reviewed 01/20/2015 12:00 AM SYNVISC-ONE, Per 1 Mg (6ml) [facility] [address]-71 Returned 02/24/2015 12:00 AM DRAIN/INJ JOINT/BURSA W/O US Reviewed 02/24/2015 12:00 AM SYNVISC-ONE, Per 1 Mg (6ml) [facility] [address]-83 Returned Results Summary Data and Description Results [...] Date Medicare Part B Medicare [place] [id number] Saturday, 2001 History of Encounters Visit Date [...] visit Maribel GUARDADO 12/17/2013 Office visit Maribel ROBERTSP 11/19/2013 Office visit Maribel ROBERTSP 10/22/2013 Office visit Maribel ROBERTSP 09/24/2013 Office visit Maribel ROBERTSP 08/27/2013 Office visit Maribel ROBERTSP 07/02/2013 Office visit Maribel ROBERTSP 06/04/2013 Office visit Maribel ROBERTSP 10/09/2012 Office visit Lloyd Oviedo MD 05/08/2010 Office visit Lloyd Oviedo MD 04/21/2010 Office visit Lloyd Oviedo MD
--- OUTSIDE RECORDS SUMMARY | 2018-07-23 11:47 | XMS REPORT ---
Author Author Maribel Vieira [facility] Address [address] [place], [place] [address] Care Team Providers Care Light Rail Vehicle Operator Name Role Phone Maribel Vieira PCP [...] 30 days Ambien 10 mg oral tablet 11/15/2016 12/15/2016 take 1 tablet (10 mg) by oral route once daily at bedtime (for male) for 30 days Coreg 12.5 mg oral tablet 11/16/2016 take 1 tablet (12.5 mg) by oral route 2 times per day with food Per pharmacy, they do BLISTER(BUBBLE) pks, 28 day count. Name Start Date Expiration Date SIG Comments [...] AUTO W/O SCOPE Reviewed 05/10/2016 12:00 AM [facility] MEDICARE [...] 10/09/2012 12:00 AM Kenalog, Per 10 Mg [facility]#[id number] Reviewed 06/04/2013 12:00 AM Drug Screen (Medicare) [...] 12:00 AM SYNVISC-ONE, Per 1 Mg (6ml) [facility] [address]-09 Reviewed 05/06/2014 12:00 AM OFFICE/OUTPATIENT VISIT EST Reviewed 06/03/2014 12:00 AM DRAIN/INJ JOINT/BURSA W/O US Reviewed 06/03/2014 12:00 AM SYNVISC-ONE, Per 1 Mg (6ml) [facility] [address]-36 Reviewed 08/26/2014 12:00 AM RADIOLOGIC EXAM SACROILIAC JOINTS 3/MORE VIEWS Reviewed 01/20/2015 12:00 AM DRAIN/INJ JOINT/BURSA W/O US Reviewed 01/20/2015 12:00 AM SYNVISC-ONE, Per 1 Mg (6ml) [facility] [address]-31 Reviewed 02/24/2015 12:00 AM DRAIN/INJ JOINT/BURSA W/O US Reviewed 02/24/2015 12:00 AM SYNVISC-ONE, Per 1 Mg (6ml) [facility] [address]-55 Reviewed Results Summary Date and Description Results [...] Influenza 05/10/2016 sanofi pasteur PMC Fluzone Quadrivalent [id number] Intramuscular Left Upper Arm 05/10/2016 02/04/2015 141 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/2013 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 UNK Unknown 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 Unknown 06/21/2016 07/01/2017 [...] 2014 9:48AM Pain in joint; Knee Left Sep [...] Number Policy Group Number Start Date Medicare [facility] Medicare C [id number] Saturday, 2001 Medicare Part A Medicare - Lab/Xray [id number] Saturday, December 29, 2001 Medicare Part B Medicare Of [place] [id number] Saturday, December 29, 2001 Medicare Part A Medicare Part A [id number] Saturday, December 29, 2001 History of Encounters Visit Date Visit Type Provider 10/26/2016 Office visit Maribel ROBERTSP 10/04/2016 Office [...] Office visit Maribel ROBERTSP 11/25/2014 Office visit Marible ROBERTSP 10/21/2014 Nurse visit Maribel ROBERTSP 09/29/2014 [...]
--- OUTSIDE RECORDS SUMMARY | 2018-07-23 11:50 | XMS REPORT ---
Author Author Maribel Vieira [facility] Address [address] [place], [place] [address] Care Team Providers Care Oil Transport Driver Name Role Phone Maribel Vieira PCP Allergies [...] 12:00 AM Kenalog, Per 10 Mg [facility]#[id number] Reviewed 06/04/2013 12:00 AM Drug Screen (Medicare) [...] Per 1 Mg (6ml) [facility] [address]-20 Reviewed 05/06/2014 12:00 AM OFFICE/OUTPATIENT VISIT EST Reviewed 06/03/2014 12:00 AM DRAIN/INJ JOINT/BURSA W/O US Reviewed 06/03/2014 12:00 AM SYNVISC-ONE, Per 1 Mg (6ml) [facility] [address]-70 Reviewed 08/26/2014 12:00 AM RADIOLOGIC EXAM SACROILIAC JOINTS 3/MORE VIEWS Returned 01/20/2015 12:00 AM DRAIN/INJ JOINT/BURSA W/O US Reviewed 01/20/2015 12:00 AM SYNVISC-ONE, Per 1 Mg (6ml) [facility] [address]-98 Returned 02/24/2015 12:00 AM DRAIN/INJ JOINT/BURSA W/O US Reviewed 02/24/2015 12:00 AM SYNVISC-ONE, Per 1 Mg (6ml) [facility] [id number] Returned Results Summary Data and Description Results [...] Date Medicare Part B Medicare Of [place] [id number] Saturday, 2001 History of Encounters Visit Date [...]
--- OUTSIDE RECORDS SUMMARY | 2018-07-23 11:50 | XMS REPORT ---
Author Author Maribel Vieira [facility] Address [address] [place], [place] [address] Care Team Providers Care Tag Press Operator Name Role Phone Maribel Vieira PCP Elias Malgaon Unavailable Unavailable Deborah Linares Unavailable Unavailable Allergies [...] AUTO W/O SCOPE Reviewed 05/10/2016 12:00 AM [facility] MEDICARE - flu vaccine administration Reviewed [...] Kenalog, Per 10 Mg [facility]#8101-3208-44 Reviewed 06/04/2013 12:00 AM Drug Screen (Medicare) [...] Per 1 Mg (6ml) [facility] [address]-28 Reviewed 05/06/2014 12:00 AM OFFICE/OUTPATIENT VISIT EST Reviewed 06/03/2014 12:00 AM DRAIN/INJ JOINT/BURSA W/O US Reviewed 06/03/2014 12:00 AM SYNVISC-ONE, Per 1 Mg (6ml) [facility] [address]-13 Reviewed 08/26/2014 12:00 AM RADIOLOGIC EXAM SACROILIAC JOINTS 3/MORE VIEWS Reviewed 01/20/2015 12:00 AM DRAIN/INJ JOINT/BURSA W/O US Reviewed 01/20/2015 12:00 AM SYNVISC-ONE, Per 1 Mg (6ml) [facility] [address]-33 Reviewed 02/24/2015 12:00 AM DRAIN/INJ JOINT/BURSA W/O US Reviewed 02/24/2015 12:00 AM SYNVISC-ONE, Per 1 Mg (6ml) [facility] [address]-52 Reviewed Results Summary Data and Description Results [...] Influenza 05/10/2016 sanofi pasteur PMC Fluzone Quadrivalent [id number] Intramuscular Left Upper Arm 05/10/2016 02/04/2015 141 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/2013 Unknown 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 UNK Unknown 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 Unknown 06/21/2016 07/01/2017 [...] Number Start Date Medicare RHC Medicare RHC [id number] Saturday, 2001 Medicare Part A Medicare - Lab/Xray [id number] Saturday, December 29, 2001 Medicare Part B Medicare Of [place] [id number] Saturday, December 29, 2001 Medicare Part A Medicare Part A [id number] Saturday, December 29, 2001 History of Encounters Visit Date Visit Type Provider 10/26/2016 Office visit Maribel Vianney ROBERTSP 10/04/2016 Office visit Maribel ROBERTSP 09/28/2016 Office visit Maribel ROBERTSP 09/26/2016 Office visit Maribel ROBERTSP 08/29/2016 Office visit Maribel NealCharley Dariel ROBERTSP 08/01/2016 Laboratory Marbiel Vianney ROBERTSP 07/04/2016 Office visit Maribel ROBERTSP 06/07/2016 Laboratory Maribel Vianney ROBERTSP 06/06/2016 Office visit Maribel ROBERTSP 05/09/2016 Office visit Maribel ValCharley Dariel ROBERTSP 03/07/2016 Office visit Maribel ROBERTSP 02/08/2016 Office visit Maribel ROBERTSP 01/11/2016 Office visit Maribel ROBERTSP 12/14/2015 Office visit Maribel ROBERTSP 11/14/2015 Office visit Maribel ROBERTSP 10/03/2015 Office visit Maribel ROBERTSP 09/06/2015 Laboratory Maribel ROBRETSP 08/31/2015 Office visit Maribel ROBERTSP 08/03/2015 Office [...] Maribel ROBERTSP 03/11/2014 Office visit Maribel Vieira [facility] 02/11/2014 Office visit Maribel Vieira [facility] 01/14/2014 Office visit Maribel Vieira [facility] 12/17/2013 Office visit Maribel Vieira [facility] 11/19/2013 Office visit Maribel Vieira [facility] 10/22/2013 Office visit Maribel Vieira [facility] 09/24/2013 Office visit Maribel Vieira [facility] 08/27/2013 Office visit Maribel Vieira [facility] 07/02/2013 Office visit Maribel Vieira [facility] 06/04/2013 Office visit Maribel Vieira [facility] 10/09/2012 Office visit Lloyd Oviedo MD 05/08/2010 Office visit Lloyd Oviedo MD 04/21/2010 Office visit Lloyd Oviedo MD
--- OUTSIDE RECORDS SUMMARY | 2018-07-23 11:52 | XMS REPORT ---
Author Author Maribel Vieira [facility] Address [address] [place], [place] [address] Care Team Providers Care Computer Assembler Name Role Phone Maribel Vieira PCP Elias [...] they do BLISTER(BUBBLE) pks, 28 day count. furosemide 40 mg oral tablet 12/17/2016 12/12/2017 Take 1 tablet (40mg) and 1 (20mg) tablet QD, (60mgs OD). Wrote RX above per Ya at [facility]. carvedilol 12.5 mg oral tablet 01/09/2017 TAKE 1 TABLET (12.5 MG) BY ORAL ROUTE 2 TIMES PER DAY WITH FOOD Ambien 10 mg oral tablet 01/09/2017 04/09/2017 take 1 tablet (10 mg) by oral route once daily at bedtime (for male) for 30 days potassium chloride 10 mEq oral tablet extended release 02/05/2017 Take 2 tablets daily in the morning and 1 tablet in the evening Novolog 100 unit/mL subcutaneous solution 02/26/2017 INJECT 160 UNITS DAILY DXE11.43. Ranexa 1,000 mg oral tablet extended release 12 hr 03/06/2017 06/26/2017 TAKE 1 TABLET BY MOUTH TWO TIMES A DAY Percocet 10-325 mg oral tablet 03/25/2017 04/24/2017 take 1 tablet by oral route every [...] AUTO W/O SCOPE Reviewed 05/10/2016 12:00 AM [facility] MEDICARE - flu vaccine administration Reviewed 05/10/2016 [...] AM Kenalog, Per 10 Mg [facility]#1721-0914-33 Reviewed 06/04/2013 12:00 AM Drug Screen (Medicare) [...] Per 1 Mg (6ml) [facility] [address]-87 Reviewed 05/06/2014 12:00 AM OFFICE/OUTPATIENT VISIT EST Reviewed 06/03/2014 12:00 AM DRAIN/INJ JOINT/BURSA W/O US Reviewed 06/03/2014 12:00 AM SYNVISC-ONE, Per 1 Mg (6ml) [facility] [address]-31 Reviewed 08/26/2014 12:00 AM RADIOLOGIC EXAM SACROILIAC JOINTS 3/MORE VIEWS Reviewed 01/20/2015 12:00 AM DRAIN/INJ JOINT/BURSA W/O US Reviewed 01/20/2015 12:00 AM SYNVISC-ONE, Per 1 Mg (6ml) [facility] [address]-31 Reviewed 02/24/2015 12:00 AM DRAIN/INJ JOINT/BURSA W/O US Reviewed 02/24/2015 12:00 AM SYNVISC-ONE, Per 1 Mg (6ml) [facility] [address]-50 Reviewed Results Summary Date and Description Results [...] HGB 13.60 g/dLHCT 41.20 % MCV 94.0 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 Dariel ROBERTSP 10/21/2014 Nurse visit Maribel ValCharley Dariel ROBERTSP 09/29/2014 Office visit Maribel ValCharley Dariel ROBERTSP 08/26/2014 Office visit Maribel Faith Dariel ROBERTSP 07/29/2014 Nurse visit Maribel Faith Dariel ROBERTSP 06/29/2014 Nurse visit Maribel ValCharley Dariel ROBERTSP 06/03/2014 Office visit Maribel Vianney ROBERTSP 05/06/2014 Nurse visit Maribel M. Dariel ROBERTSP 04/08/2014 Nurse visit Maribel Faith Dariel ROBERTSP 03/11/2014 Office visit Maribel ValCharley Dariel ROBERTSP 02/11/2014 Office visit Maribel ROBERTSP 01/14/2014 Office visit Maribel Vianney ROBERTSP 12/17/2013 Office visit Maribel Vianney ROBERTSP 11/19/2013 Office visit Maribel ROBERTSP 10/22/2013 Office visit Maribel ROBERTSP 09/24/2013 Office visit Maribel ROBERTSP 08/27/2013 Office visit Maribel ROBERTSP 07/02/2013 Office visit Maribel ROBERTSP 06/04/2013 Office visit Maribel ROBERTSP 10/09/2012 Office visit Lloyd Oviedo MD 05/08/2010 Office visit Lloyd Oviedo MD 04/21/2010 Office visit Lloyd Oviedo MD
--- OUTSIDE RECORDS SUMMARY | 2018-07-23 11:53 | XMS REPORT ---
Author Author Maribel Vieira [facility] Address [address] [place], [place] [address] Care Team Providers Care Ditch Worker Name Role Phone Maribel Vieira PCP Elias Malagon Unavailable Unavailable Deborah Linares Unavailable Unavailable Allergies and Adverse Reactions Name Reaction Notes PENICILLINS Plan of Treatment Planned Activity Comments Planned Date Planned Time Plan/Goal Lipid profile 09/06/2015 12:00 AM GENERAL HEALTH PANEL 09/06/2015 12:00 AM PSA TOTAL 09/06/2015 12:00 AM Flu Vaccine, 3yrs & older, Quadrivalent (multi-dose vial) - [facility] Medicare 12:00 AM Medications Active Name Start Date [...] substance abuse disabeled Did not serve in [employer] Disability History of Procedures Date Ordered [...] Kenalog, Per 10 Mg [facility]#[id number] Reviewed 06/04/2013 12:00 AM Drug Screen (Medicare) [...] Per 1 Mg (6ml) [facility] [address]-16 Reviewed 05/06/2014 12:00 AM OFFICE/OUTPATIENT VISIT EST Reviewed 06/03/2014 12:00 AM DRAIN/INJ JOINT/BURSA W/O US Reviewed 06/03/2014 12:00 AM SYNVISC-ONE, Per 1 Mg (6ml) [facility] [address]-92 Reviewed 08/26/2014 12:00 AM RADIOLOGIC EXAM SACROILIAC JOINTS 3/MORE VIEWS Returned 01/20/2015 12:00 AM DRAIN/INJ JOINT/BURSA W/O US Reviewed 01/20/2015 12:00 AM SYNVISC-ONE, Per 1 Mg (6ml) [facility] [address]-54 Returned 02/24/2015 12:00 AM DRAIN/INJ JOINT/BURSA W/O US Reviewed 02/24/2015 12:00 AM SYNVISC-ONE, Per 1 Mg (6ml) [facility] [address]-47 Returned Results Summary Data and Description Results [...] Aug 03 2015 1:55PM Chronic Back Pain Fe2015 1:55PM Essential Hypertension Aug 31 2015 1:18PM [...] 1:56PM Flu Vaccine May 10 2016 7:36AM Payers Insurance Name Company Name Plan Name Plan Number Policy Number Policy Group Number Start Date Medicare Part A Medicare RHC [id number] Saturday, 2001 Medicare Part A Medicare - Lab/Xray [id number] Saturday, December 29, 2001 Medicare Part B Medicare Of [place] [id number] Saturday, December 29, 2001 Medicare Part A Medicare Part A [id number] Saturday, December 29, 2001 History of Encounters [...]
--- OUTSIDE RECORDS SUMMARY | 2018-07-23 11:53 | XMS REPORT ---
Author Author Maribel Vieira [facility] Address [address] [place], [place] [id number] Care Team Providers Care Master Printer Name Role Phone Maribel Vieira PCP Allergies [...] 10 Mg [facility]#[id number] Reviewed 06/04/2013 12:00 AM Drug Screen (Medicare) [...] (6ml) [facility] [address]-51 Reviewed 05/06/2014 12:00 AM OFFICE/OUTPATIENT VISIT EST Reviewed 06/03/2014 12:00 AM DRAIN/INJ JOINT/BURSA W/O US Reviewed 06/03/2014 12:00 AM SYNVISC-ONE, Per 1 Mg (6ml) [facility] [address]-06 Reviewed 08/26/2014 12:00 AM RADIOLOGIC EXAM SACROILIAC JOINTS 3/MORE VIEWS Returned 01/20/2015 12:00 AM DRAIN/INJ JOINT/BURSA W/O US Reviewed 01/20/2015 12:00 AM SYNVISC-ONE, Per 1 Mg (6ml) [facility] [id number] Returned 02/24/2015 12:00 AM DRAIN/INJ JOINT/BURSA W/O US Reviewed 02/24/2015 12:00 AM SYNVISC-ONE, Per 1 Mg (6ml) [facility] [id number] Returned Results Summary Data and Description Results [...] Date Medicare Part B [employer] [place] [id number] Saturday, 2001 History of Encounters Visit Date [...]
--- OUTSIDE RECORDS SUMMARY | 2018-07-23 11:54 | XMS REPORT ---
Author Author Maribel Vieira [facility] Address [address] [place], [place] [id number] Care Team Providers Care Machine Hose Cutter Name Role Phone Maribel Vieira PCP Elias [...] 10/09/2012 12:00 AM Kenalog, Per 10 Mg [facility]#[id number] Reviewed 06/04/2013 12:00 AM Drug Screen (Medicare) [...] 12:00 AM SYNVISC-ONE, Per 1 Mg (6ml) [facility] [address]-96 Reviewed 05/06/2014 12:00 AM OFFICE/OUTPATIENT VISIT EST Reviewed 06/03/2014 12:00 AM DRAIN/INJ JOINT/BURSA W/O US Reviewed 06/03/2014 12:00 AM SYNVISC-ONE, Per 1 Mg (6ml) [facility] [address]-52 Reviewed 08/26/2014 12:00 AM RADIOLOGIC EXAM SACROILIAC JOINTS 3/MORE VIEWS Returned 01/20/2015 12:00 AM DRAIN/INJ JOINT/BURSA W/O US Reviewed 01/20/2015 12:00 AM SYNVISC-ONE, Per 1 Mg (6ml) [facility] [address]-98 Returned 02/24/2015 12:00 AM DRAIN/INJ JOINT/BURSA W/O US Reviewed 02/24/2015 12:00 AM SYNVISC-ONE, Per 1 Mg (6ml) [facility] [address]-78 Returned Results Summary Data and Description Results [...] Number Start Date Medicare Part A Medicare [facility] [id number] Saturday, 2001 Medicare Part A Medicare - Lab/Xray [id number] Saturday, December 29, 2001 Medicare Part B [place] [id number] Saturday, December 29, 2001 Medicare Part A Medicare Part A [id number] Saturday, December 29, 2001 History of Encounters [...] Maribel NealCharley Dariel ROBERTSP 09/29/2014 Office visit aMribel ROBERTSP 08/26/2014 Office visit Maribel ROBERTSP 07/29/2014 [...]
--- OUTSIDE RECORDS SUMMARY | 2018-07-23 11:56 | XMS REPORT ---
Author Author Maribel Vieira [facility] Address [address] [place], [place] [id number] Care Team Providers Care Mechanical Integrity Specialist Name Role Phone Maribel Vieira PCP Elias Malagon Unavailable Unavailable Deborah Linares Unavailable Unavailable Allergies and Adverse Reactions Name Reaction Notes PENICILLINS Plan of Treatment Planned Activity Comments Planned Date Planned Time Plan/Goal Lipid profile 09/06/2015 12:00 AM GENERAL HEALTH PANEL 09/06/2015 12:00 AM PSA TOTAL 09/06/2015 12:00 AM TESTOSTERONE FREE & TOTAL 05/21/2017 12:00 AM T1DM - insulin pump [...] solution 03/28/2017 INJECT 160 UNITS DAILY DXE11.43. Cycle Ultra Test miscellaneous strip 03/28/2017 Use to [...] VENOUS BLOOD VENIPUNCTURE Reviewed 05/21/2017 12:00 AM HEPATITIS C AB TEST Returned 05/21/2017 12:00 AM INFLUENZA VAC 4 VALENT PRSRV FREE 3 YRS PLUS IM Reviewed 10/09/2012 12:00 AM DRAIN/INJ JOINT/BURSA W/O US Reviewed 10/09/2012 12:00 AM Kenalog, Per 10 Mg [facility]#[id number] Reviewed 06/04/2013 12:00 AM Drug Screen (Medicare) [...] Per 1 Mg (6ml) [facility] [address]-42 Reviewed 05/06/2014 12:00 AM OFFICE/OUTPATIENT VISIT EST Reviewed 06/03/2014 12:00 AM DRAIN/INJ JOINT/BURSA W/O US Reviewed 06/03/2014 12:00 AM SYNVISC-ONE, Per 1 Mg (6ml) [facility] [address]-34 Reviewed 08/26/2014 12:00 AM RADIOLOGIC EXAM SACROILIAC JOINTS 3/MORE VIEWS Reviewed 01/20/2015 12:00 AM DRAIN/INJ JOINT/BURSA W/O US Reviewed 01/20/2015 12:00 AM SYNVISC-ONE, Per 1 Mg (6ml) [facility] [address]-78 Reviewed 02/24/2015 12:00 AM DRAIN/INJ JOINT/BURSA W/O US Reviewed 02/24/2015 12:00 AM SYNVISC-ONE, Per 1 Mg (6ml) [facility] [address]-47 Reviewed Results Summary Date and Description Results [...] Influenza 05/10/2016 sanofi pasteur PMC Fluzone Quadrivalent [id number] Intramuscular Left Upper Arm 05/10/2016 02/04/2015 141 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/2013 Unknown 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 Unknown 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 Unknown 06/21/2016 [...] Number Start Date Medicare RHC Medicare RHC [id number] Saturday, 2001 Medicare Part A Medicare - Lab/Xray [id number] Saturday, December 29, 2001 Medicare Part B [place] [id number] Saturday, December 29, 2001 Medicare Part A Medicare Part A [id number] Saturday, December 29, 2001 History of Encounters [...] Office visit Maribel GUARDADO 06/07/2016 Laboratory Maribel Vieira HEADLINE WRITER 06/06/2016 Office visit Maribel ValCharley Dariel ROBERTSP 05/09/2016 Office visit Maribel ValCharley Dariel ROBERTSP 03/07/2016 Office visit Maribel Faith Dariel ROBERTSP 02/08/2016 Office visit Maribel Faith Dariel ROBERTSP 01/11/2016 Office visit Maribel ValCharley Dariel HEADLINE WRITER 12/14/2015 Office visit Maribel ROBERTSP 11/14/2015 Office visit Maribel NealCharley Dariel ROBERTSP 10/03/2015 Office visit Maribel M. Dariel HEADLINE WRITER 09/06/2015 Laboratory Maribel Vieira HEADLINE WRITER 08/31/2015 Office visit Maribel ValCharley Dariel ROBERTSP [...] Office visit Maribel ROBERTSP 10/21/2014 Nurse visit Maribelvenkat ROBERTSP 09/29/2014 Office visit Maribel Vianney ROBERTSP [...]
--- OUTSIDE RECORDS SUMMARY | 2018-07-23 11:58 | XMS REPORT ---
Author Author Maribel Vieira [facility] Address [address] [place], [place] [id number] Care Team Providers Care Forming Machine Upkeep Mechanic Helper Name Role Phone Maribel Vieira PCP Elias [...] solution 03/28/2017 INJECT 160 UNITS DAILY DXE11.43. [employer] Ultra Test miscellaneous strip 03/28/2017 Use to test blood sugar six times daily bupropion HCl 100 mg oral tablet 04/08/2017 TAKE 1 TABLET BY MOUTH THREE TIMES DAILY atorvastatin 80 mg oral tablet 06/26/2017 TAKE 1 TABLET BY MOUTH ONCE A DAY IN THE EVENING metoclopramide HCl 10 mg oral tablet 06/27/2017 [...] by topical route 4 times per day pantoprazole 40 mg oral tablet,delayed release (DR/EC) 08/13/2017 11/05/2017 TAKE 1 TABLET BY MOUTH ONCE A DAY venlafaxine 37.5 mg oral tablet [...] 30 days Percocet 10-325 mg oral tablet 09/11/2017 10/11/2017 take 1 tablet by oral route every [...] 1 ( 20mg) tablet QD, (60mgs OD). [employer] Ultra Test miscellaneous strip 04/30/2017 04/30/2017 Use to test blood sugar six times daily Aspirin 325 mg Oral Tablet 05/07/2017 take 1 tablet (325 mg) by oral route once daily aspirin 325 mg oral tablet,delayed release (DR/EC) 05/10/2017 07/09/2017 TAKE 1 TABLET BY MOUTH ONCE A DAY risperidone 0.5 mg oral tablet 05/28/2017 WEAN by 0.5 mg weekly - called to [place] [facility] potassium chloride 10 mEq oral [...] times per day as needed for cough Discontinued Name Start Date Discontinued Date SIG [...] route once daily and taper as instructed Cymbalta 30 mg oral capsule,delayed release(DR/EC) 06/26/2017 [...] HC BMI BSA BMI Percentile O2 Sat(%) 09/11/2017 1:20:00 PM 132 mmHg 76 mmHg [...] substance abuse disabeled Did not serve in [employer] Security Disability History of Procedures Date Ordered [...] 12:00 AM [facility] MEDICARE - flu vaccine administration Reviewed 05/21/2017 [...] JNT OF LWR EXTRE W/O DYE Reviewed 10/09/2012 12:00 AM DRAIN/INJ JOINT/BURSA W/O US Reviewed 10/09/2012 12:00 AM Kenalog, Per 10 Mg [facility][NOTE 3]#[id number] Reviewed 06/04/2013 12:00 AM Drug Screen (Medicare) [...] [facility][NOTE 3] [address]-52 Reviewed 05/06/2014 12:00 AM OFFICE/OUTPATIENT VISIT EST Reviewed 06/03/2014 12:00 AM DRAIN/INJ JOINT/BURSA W/O US Reviewed 06/03/2014 12:00 AM SYNVISC-ONE, Per 1 Mg (6ml) [facility][NOTE 3] [address]-99 Reviewed 08/26/2014 12:00 AM RADIOLOGIC EXAM SACROILIAC JOINTS 3/MORE VIEWS Reviewed 01/20/2015 12:00 AM DRAIN/INJ JOINT/BURSA W/O US Reviewed 01/20/2015 12:00 AM SYNVISC-ONE, Per 1 Mg (6ml) [facility][NOTE 3] [address]-72 Reviewed 02/24/2015 12:00 AM DRAIN/INJ JOINT/BURSA W/O US Reviewed 02/24/2015 12:00 AM SYNVISC-ONE, Per 1 Mg (6ml) [facility][NOTE 3] [address]-59 Reviewed Results Summary Date and Description Results [...] Influenza 05/10/2016 sanofi pasteur PMC Fluzone Quadrivalent [id number] Intramuscular Left Upper Arm 05/10/2016 02/04/2015 141 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/2013 Unknown 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 Unknown 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 Unknown 06/21/2016 07/01/2018 33 Influenza 05/21/2017 sanofi pasteur PMC Fluzone [...] subsequent encounter Aug 07 2017 1: 14PM Payers Insurance Name Company Name Plan Name Plan Number Policy Number Policy Group Number Start Date Medicare RHC Medicare RHC [id number] Saturday, 2001 Medicare Part A Medicare - Lab/Xray [id number] Saturday, December 29, 2001 Medicare Part B [place] [id number] Saturday, December 29, 2001 Medicare Part A Medicare Part A [id number] Saturday, December 29, 2001 History of Encounters Visit Date Visit Type Provider 09/11/2017 Office visit Maribel GUARDADO 08/14/2017 Office visit Maribel GUARDADO 08/07/2017 Office visit Maribel GUARDADO 07/24/2017 Laboratory Maribel GUARDADO 07/17/2017 Office visit Maribel GUARDADO 06/19/2017 Office visit Maribel GUARDADO 06/05/2017 Office visit Maribel GUARDADO 05/28/2017 Office visit Maribel GUARDADO 05/21/2017 Office visit Maribel GUARDADO 02/20/2017 Office visit Maribel GUARDADO 01/16/2017 Office visit Maribel GUARDADO 12/19/2016 Office visit Maribel Faith Dariel VETERANS SERVICE REPRESENTATIVE 12/03/2016 Laboratory Maribel M. Dariel VETERANS SERVICE REPRESENTATIVE 11/21/2016 Office visit Maribel M. Dariel VETERANS SERVICE REPRESENTATIVE 10/26/2016 Office visit Maribel Faith Dariel VETERANS SERVICE REPRESENTATIVE 10/04/2016 Office visit Maribel Faith Dariel ROBERTSP 09/28/2016 Office visit Maribel Faith Dariel ROBERTSP 09/26/2016 Office visit Maribel NealCharley Dariel VETERANS SERVICE REPRESENTATIVE 08/29/2016 Office visit Maribel M. Dariel ROBERTSP 08/01/2016 Laboratory Maribel Vieira VETERANS SERVICE REPRESENTATIVE 07/04/2016 Office visit Maribel Faith Dariel ROBERTSP 06/07/2016 Laboratory Maribel M. Dariel VETERANS SERVICE REPRESENTATIVE 06/06/2016 Office visit Maribel ValCharley Dariel ROBERTSP 05/09/2016 Office visit Maribel Faith Dariel ROBERTSP 03/07/2016 Office visit Maribel Faith Dariel ROBERTSP 02/08/2016 Office visit Maribel ValCharley Dariel ROBERTSP 01/11/2016 Office visit Maribel ROBERTSP 12/14/2015 Office visit Maribel ROBERTSP 11/14/2015 Office visit Maribel M. Dariel ROBERTSP 10/03/2015 Office visit Maribel Faith Dariel ROBERTSP 09/06/2015 Laboratory Maribel ValCharley Dariel ROBERTSP 08/31/2015 Office visit Maribel ValCharley Dariel ROBERTSP 08/03/2015 Office visit Maribel Faith Dariel ROBERTSP 07/06/2015 Office visit Maribel Vianney ROBERTSP 06/09/2015 Nurse visit Maribel ROBERTSP 05/17/2015 [...] visit Maribel ROBERTSP 06/29/2014 Nurse visit Maribel Vieira [facility] 06/03/2014 Office visit Maribel Vieira [facility] 05/06/2014 Nurse visit Maribel Vieira [facility] 04/08/2014 Nurse visit Maribel Vieira [facility] 03/11/2014 Office visit Maribel Vieira [facility] 02/11/2014 Office visit Maribel ROBERTSP 01/14/2014 Office visit Maribel Vieira [facility] 12/17/2013 Office visit Maribel ROBERTSP 11/19/2013 Office visit Maribel ROBERTSP 10/22/2013 Office visit Maribel ROBERTSP 09/24/2013 Office visit Maribel ROBERTSP 08/27/2013 Office visit Maribel ROBERTSP 07/02/2013 Office visit Maribel ROBERTSP 06/04/2013 Office visit Maribel ROBERTSP 10/09/2012 Office visit Lloyd Oviedo MD 05/08/2010 Office visit Lloyd Oviedo MD 04/21/2010 Office visit Lloyd Oviedo MD
--- OUTSIDE RECORDS SUMMARY | 2018-07-23 11:59 | XMS REPORT | Clinical Summary ---
Author Author Admin, GARY Organization [facility] Address Unknown Phone Unavailable Allergies, Adverse Reactions, Alerts Allergy Name Reaction Description Start Date Severity Status Provider PENICILLIN Critical Active Jasmyn Mary LPN FENTANYL Critical Active Jasmyn Mary LPN Conditions or Problems Problem Name Problem Code Onset Date Status Entry Date Provider Comment Standard Description Annotate DIABETES, TYPE 1 250.01 Active Jasmyn Mary LPN Diabetes mellitus without mention of complication, type I [juvenile type], not stated as uncontrolled G E R D 530.81 Active Jasmyn Mary LPN Esophageal reflux HYPERTENSION 401.9 Active Jasmyn Mary LPN Unspecified essential hypertension SEIZURE DISORDER 780.39 Active Jasmyn Mary LPN Other convulsions History of MYOCARDIAL INFARCTION: 410.90 Active Jasmyn Mary LPN Acute myocardial infarction, unspecified site, episode of care unspecified FH DIABETES V18.0 Active Jasmyn Mary LPN Family history of diabetes mellitus FH STROKE V17.1 Active Jasmyn Mary LPN Family history of stroke (cerebrovascular) FH BREAST CANCER V16.3 Active Jasmyn Mary LPN Family history of malignant neoplasm of breast DIABETES MELLITUS, TYPE I, UNCONTROLLED 250.03 Active Malgriffin Ziglari [employer]ER[employer] OFFICER Diabetes mellitus without mention of complication, type I [juvenile type], uncontrolled DIABETIC HYPOGLYCEMIA, TYPE I, UNCONTROLLED 250.83 Active 12/10 Malgriffin Ziglari [employer]ERIFF OFFICER Diabetes mellitus with other specified manifestations, type I [juvenile type], uncontrolled Continuous insulin infusion pump V46.9 Active Elias Malagon [employer]ERIFF OFFICER Unspecified machine and device dependence Medication List Medication Instructions Start Date Stop Date Generic Name NDC Status Provider Patient Instruction COREG 12.5 MG ORAL TABS by mouth twice a day CARVEDILOL 93140351426 Active [facility] Ziglari [employer]ERIFF OFFICER Active MS CONTIN 30 MG CR-TABS by mouth twice a day MORPHINE SULFATE 93432989867 No Longer Active Maleh Ziglari [employer]ERIFF OFFICER Active ONETOUCH ULTRA BLUE STRP check blood sugars 6x/day GLUCOSE BLOOD 97024310256 [facility] [employer]ERIFF OFFICER Active LEVOTHYROXINE SODIUM 50 MCG ORAL TABS Take one by mouth daily LEVOTHYROXINE SODIUM 44941590119 [facility] [employer]ERIFF OFFICER Active LEVOTHYROXINE SODIUM 25 MCG TABS Take one by mouth daily LEVOTHYROXINE SODIUM 21767967436 No Longer Active [facility] Ziglari [employer]ERIFF OFFICER Active GABAPENTIN 600 MG TABS by mouth twice a day GABAPENTIN 50392237109 No Longer Active [facility] Ziglari [employer]ERIFF OFFICER Active LATUDA 20 MG TABS Take one by mouth daily LURASIDONE HCL 97900922605 No Longer Active [facility] Ziglari [employer]ER[employer] OFFICER Active RISPERDAL 2 MG ORAL TABS Take one by mouth daily RISPERIDONE 02332596700 Active [facility] Ziglari [employer]ERIFF OFFICER Active HUMALOG 100 UNIT/ML SOLN 100-200u/day with insulin pump INSULIN LISPRO (HUMAN) 71018436719 Active [facility] Ziglari [employer]ERIFF OFFICER Active MOBIC 15 MG TABS Take one by mouth daily MELOXICAM 60315167524 No Longer Active [facility] Ziglari [employer]ERIFF OFFICER Active LEXAPRO 20 MG TABS Take one by mouth daily ESCITALOPRAM OXALATE 76293777992 No Longer Active Maleh Ziglari SHERIFF OFFICER Active MS CONTIN 15 MG [id number] 1 tab by mouth every 12 hrs MORPHINE SULFATE 30976828759 No Longer Active Maleh Ziglari SHERIFF OFFICER Active GABAPENTIN 300 MG CAPS by mouth twice a day GABAPENTIN 45703981126 No Longer Active Maliheh Ziglari SHERIFF OFFICER Active CYCLOBENZAPRINE HCL 10 MG TABS Take 1 tab every 6 hours PRN CYCLOBENZAPRINE HCL 31884861197 Active Lala Saranya Deras HYDRAULIC BLOCKER Active AMBIEN 10 MG TABS take 1/2 tab daily at bedtime prn ZOLPIDEM TARTRATE 68358990511 Active [facility] OFFIC[facility] Active KLOR-CON 10 10 MEQ CR-TABS Take one by mouth daily POTASSIUM CHLORIDE 68402905297 Active [facility] FUROSEMIDE 40 MG TABS Take one and 1/2 tabs by mouth daily FUROSEMIDE 51433966727 Active [facility] OFFIC[facility] Active ULTRAM ER 200 MG [id number] Take one by mouth daily TRAMADOL HCL 48120844467 No Longer Active [facility] Rogelioglari [employer]IFF OFFICER Active SYMBICORT 160-4.5 MCG/ACT AERO 2 puffs bid BUDESONIDE- FORMOTEROL FUMARATE 54168627809 Active [facility] Active PREVACID 30 MG CPDR Take one by mouth twice daily LANSOPRAZOLE 18676972914 Active [facility] Active ZETIA 10 MG TABS Take one by mouth daily EZETIMIBE 14825848259 Active [facility] Rogelioari [employer]IFF OFFICER Active GLUCAGON EMERGENCY 1 MG KIT Inject for low blood sugar GLUCAGON (RDNA) 92601194625 Active [facility] Rogelioglari SHERIFF OFFICER Active ATORVASTATIN CALCIUM 80 MG TABS Take one by mouth daily ATORVASTATIN CALCIUM 03741088012 Active [facility] Rogelioari SHERIFF OFFICER Active LIPITOR 40 MG TABS take at bedtime ATORVASTATIN CALCIUM 02421443118 No Longer Active [facility] Rogelioglari [employer]ERIFF OFFICER Active ASPIRIN 325 MG TABS Take one by mouth daily ASPIRIN 28204467498 Active Jasmyn Mary LPN Active NOVOLOG 100 UNIT/ML SOLN per pump INSULIN ASPART 70729688730 No Longer Active Jasmyn Mary LPN Active RANEXA 1000 MG [id number] 1 by mouth every 12 hrs RANOLAZINE 64159821014 Active Jasmyn Mary LPN Active REGLAN 10 MG TABS 1 tab by mouth after meals and at hs daily METOCLOPRAMIDE HCL 03335254091 Active Jasmyn Mary LPN Active KLOR-CON M20 20 MEQ CR-TABS Take one by mouth daily POTASSIUM CHLORIDE JEANINE CR 35902751917 Active Jasmyn Mary HYDRAULIC BLOCKER Active WELLBUTRIN 100 MG TABS Take one by mouth 3 times daily, morning, afternoon and evening BUPROPION HCL 13541295025 Active Jasmyn Mary HYDRAULIC BLOCKER Active CYMBALTA 60 MG CPEP 2 caps by mouth daily DULOXETINE HCL 34930421541 Active Jasmyn Mary LPN Active RAMIPRIL 10 MG CAPS Take one by mouth daily RAMIPRIL 52604865771 Active Jasmyn Mary LPN Active PERCOCET 10-325 MG TABS one by mouth every 6 hrs as needed for pain OXYCODONE-ACETAMINOPHEN 87235298644 Active Jasmyn Mary LPN Active NITROSTAT 0.4 MG SUBL 1 tab under tongue every 5 min as need for cx pain. not to exceet total of 3 doses in 15 min NITROGLYCERIN 46195730860 Active Jasmyn Mary LPN Active LIPITOR 40 MG TABS take at bedtime LIPITOR 40 MG TABS 837487 ATORVASTATIN CALCIUM Inactive ULTRAM ER 200 MG [id number] Take one by mouth daily ULTRAM ER 200 MG [id number] TRAMADOL HCL Inactive GABAPENTIN 300 MG CAPS by mouth twice a day GABAPENTIN 300 MG CAPS 212989 GABAPENTIN Inactive MS CONTIN 15 MG [id number] 1 tab by mouth every 12 hrs MS CONTIN 15 MG [id number] MORPHINE SULFATE Inactive LEXAPRO 20 MG TABS Take one by mouth daily LEXAPRO 20 MG TABS 640229 ESCITALOPRAM OXALATE Inactive MOBIC 15 MG TABS Take one by mouth daily MOBIC 15 MG TABS 617680 MELOXICAM Inactive LATUDA 20 MG TABS Take one by mouth daily LATUDA 20 MG TABS LURASIDONE HCL Inactive GABAPENTIN 600 MG TABS by mouth twice a day GABAPENTIN 600 MG TABS 629720 GABAPENTIN Inactive LEVOTHYROXINE SODIUM 25 MCG TABS Take one by mouth daily LEVOTHYROXINE SODIUM 25 MCG TABS 467681 LEVOTHYROXINE SODIUM Inactive MS CONTIN 30 MG CR-TABS by mouth twice a day MS CONTIN 30 MG CR-TABS MORPHINE SULFATE Inactive Advance Directives Directive Description Start Date PERMISSION TO SHARE Immunizations Vaccine Administration Date Value Standard Description influenza immunization (Flu Vax) has been administered 04/26/2015 influenza virus vaccine, unspecified formulation influenza immunization (Flu Vax) has been administered 03/31/2014 influenza virus vaccine, unspecified formulation influenza immunization (Flu Vax) has been administered 05/01/2013 influenza virus vaccine, unspecified formulation pneumococcal immunization administered 7-16-13 pneumococcal polysaccharide vaccine, 23 valent influenza immunization (Flu Vax) has been administered 03/03/2012 influenza virus vaccine, unspecified formulation pneumococcal immunization administered 05/31/2011 pneumococcal polysaccharide vaccine, 23 valent Vital Signs Date Name Value Unit Range Description blood pressure, diastolic - 8462-4 80 mm[Hg] BP ramirez blood pressure, systolic - 8480-6 130 mm[Hg] BP sys height E&M - 8302-2 75.5 [in_us] Bdy height pulse rate E&M - 8867-4 84 /min Heart rate weight E&M - 3141-9 305 [lb_av] Weight Measured blood pressure, diastolic - 8462-4 60 mm[Hg] BP ramirez blood pressure, systolic - 8480-6 134 mm[Hg] BP sys height E&M - 8302-2 75.5 [in_us] Bdy height pulse rate E&M - 8867-4 72 /min Heart rate weight E&M - 3141-9 310 [lb_av] Weight Measured blood pressure, diastolic - 8462-4 60 mm[Hg] BP ramirez blood pressure, systolic - 8480-6 122 mm[Hg] BP sys height E&M - 8302-2 75.5 [in_us] Bdy height pulse rate E&M - 8867-4 72 /min Heart rate weight E&M - 3141-9 311 [lb_av] Weight Measured blood pressure, diastolic - 8462-4 70 mm[Hg] BP ramirez blood pressure, systolic - 8480-6 130 mm[Hg] BP sys pulse rate E&M - 8867-4 72 /min Heart rate weight E&M - 3141-9 311 [lb_av] Weight Measured Diagnostic Results Date Name Value Unit Range Description Chart Maintenance: outside lab added to flowsheet - Chemistry blood glucose 162 mg/dL creatinine, serum 1.1 mg/dL thyroid stimulating hormone, serum 2.81 u[iU]/mL Lab Report: Basic Metabolic Panel, HGBA1C - Chemistry sodium, serum 138 mmol/L 994-099 9602/02/09 potassium, serum 4.5 mmol/L 3.5-5.2 chloride, serum 100 mmol/L 98-107 carbon dioxide, venous blood 29.0 mmol/L 21.0-32.0 blood glucose 164 mg/dL 65-110 calcium, serum 8.8 mg/dL 8.5-10.1 urea nitrogen, blood 28 mg/dL 7-18 creatinine, serum 1.51 mg/dL 0.55-1.30 hemoglobin A1C, blood, as % of total hemoglobin 7.3 % 4.3-6.0 sodium, serum 138 mmol/L 656-152 8814/08/24 potassium, serum 4.6 mmol/L 3.5-5.2 chloride, serum 100 mmol/L 98-107 carbon dioxide, venous blood 31.8 mmol/L 21.0-32.0 blood glucose 267 mg/dL 65-110 calcium, serum 9.1 mg/dL 8.5-10.1 urea nitrogen, blood 15 mg/dL 7-18 creatinine, serum 1.24 mg/dL 0.55-1.30 hemoglobin A1C, blood, as % of total hemoglobin 8.1 % 4.3-6.0 Lab Report: Basic Metabolic Panel, MICROALBUMIN, HGBA1C - Chemistry sodium, serum 138 mmol/L 956-607 4235/11/04 potassium, serum 3.9 mmol/L 3.5-5.2 chloride, serum 102 mmol/L 98-107 carbon dioxide, venous blood 28.6 mmol/L 21.0-32.0 blood glucose 114 mg/dL 65-110 calcium, serum 8.6 mg/dL 8.5-10.1 urea nitrogen, blood 26 mg/dL 7-18 creatinine, serum 1.51 mg/dL 0.55-1.30 albumin/creatinine ratio, urine < 30 mg/g mg/g{creat} 0-29 hemoglobin A1C, blood, as % of total hemoglobin 7.9 % 4.3-6.0 Lab Report: Basic Metabolic Panel, MICROALBUMIN, HGBA1C - Lab microalbumin, urine 30 0-19 Lab Report: HGBA1C - Chemistry hemoglobin A1C, blood, as % of total hemoglobin 6.9 % 4.3-6.0 Office Visit: Diabetes Visit - Chemistry cholesterol, target level 200 mg/dL triglyceride, target level 200 mg/dL HDL cholesterol, serum, target level 35 mg/dL LDL target level 100 mg/dL cholesterol, target level 200 mg/dL triglyceride, target level 200 mg/dL HDL cholesterol, serum, target level 35 mg/dL LDL target level 100 mg/dL cholesterol, target level 200 mg/dL triglyceride, target level 200 mg/dL HDL cholesterol, serum, target level 35 mg/dL LDL target level 100 mg/dL cholesterol, target level 200 mg/dL triglyceride, target level 200 mg/dL HDL cholesterol, serum, target level 35 mg/dL LDL target level 100 mg/dL Encounters Code Encounter Date Provider Facility CPT-81555 Level 3 Est. Patient 13:47:02 CDT [facility] CPT-85314 Level 4 Est. Patient 17:39:08 CDT [facility] CPT-57618 Level 3 Est. Patient 16:08:05 BACTERIOLOGIST FOOD [facility] CPT-73357 Level 4 Est. Patient 16:28:18 BACTERIOLOGIST FOOD [facility] CPT-13796 Level 4 Est. Patient 18:06:10 CDT [facility] CPT-51052 Level 4 Est. Patient 15:14:20 CDT [facility] CPT-42310 Level 3 Est. Patient 14:44:29 CDT [facility] CPT-66324 Level 4 Est. Patient 15:15:35 BACTERIOLOGIST FOOD [facility] CPT-45768 Level 3 Est. Patient 15:07:35 CDT [facility] CPT-79798 Level 4 Est. Patient 15:40:05 CDT Elias Malagon [facility] CPT-36519 Level 4 Est. Patient 15:32:36 BACTERIOLOGIST FOOD Andreavenkata Malagon [facility] CPT-84359 Level 5 Est. Patient 17:33:32 BACTERIOLOGIST FOOD [facility] Level 5 Est. Patient 15:05:09 CDT Elias Malagon [facility] CPT-86302 Level 4 Est. Patient 15:52:[address] [facility]145 Level 4 Est. Patient 16:22:51 CDT [facility] CPT-49539 Level 4 Est. Patient 17:41:26 BACTERIOLOGIST FOOD [facility] CPT-30488 Level 3 Est. Patient 17:42:24 CDT [facility]08206 Level 3 Est. Patient 14:01:37 CDT Evelyne [facility] CPT-98113 Level 3 Est. Patient 16:13:45 CDT [facility] CPT-59751 Level 4 Est. Patient 17:16:06 [facility] Level 5 Est. Patient 16:08:43 CDT [facility] Procedures Code Procedure Name Date Entry Date Standard Description CPT-21003 HGBA1C - LAB USE ONLY 09:42:26 CDT CPT-57208 BMP - LAB USE ONLY 09:42:26 CDT CPT-57584 Venipuncture Draw Fee 09:42:26 CDT CPT-66413 Prevnar 13 16:55:53 BACTERIOLOGIST FOOD CPT-80121 Immunization Single Admin 16:55:53 BACTERIOLOGIST FOOD CPT-37503 Pneumovax 16:04:52 BACTERIOLOGIST FOOD
--- OUTSIDE RECORDS SUMMARY | 2018-07-23 11:59 | XMS REPORT | Clinical Summary ---
Author Author Admin, E Organization [facility] Address Unknown Phone Unavailable Allergies, Adverse Reactions, [...] MELLITUS, TYPE I, UNCONTROLLED 250.03 Active Malgriffin Mercadoglari UNDERCUTTER Diabetes mellitus without mention of complication, type I [juvenile type], uncontrolled DIABETIC HYPOGLYCEMIA, TYPE I, UNCONTROLLED 250.83 Active 12/10 Elias Ziglari UNDERCUTTER Diabetes mellitus with other specified manifestations, type I [juvenile type], uncontrolled Continuous insulin infusion pump V46.9 Active Elias Malagon UNDERCUTTER Unspecified machine and device dependence Medication List Medication Instructions Start Date Stop Date Generic Name NDC Status Provider Patient Instruction COREG 12.5 MG ORAL TABS by mouth twice a day CARVEDILOL 62602443662 Active [facility] Ziglari UNDERCUTTER Active MS CONTIN 30 MG CR-TABS by mouth twice a day MORPHINE SULFATE 86823117446 No Longer Active Maleh Ziglari UNDERCUTTER Active ONETOUCH ULTRA BLUE STRP check blood sugars 6x/day GLUCOSE BLOOD 29474479952 Active [facility] Ziglari UNDERCUTTER Active LEVOTHYROXINE SODIUM 50 MCG ORAL TABS Take one by mouth daily LEVOTHYROXINE SODIUM 75421346169 Active [facility] Ziglari UNDERCUTTER Active LEVOTHYROXINE SODIUM 25 MCG TABS Take one by mouth daily LEVOTHYROXINE SODIUM 29413509091 No Longer Active [facility] Ziglari UNDERCUTTER Active GABAPENTIN 600 MG TABS by mouth twice a day GABAPENTIN 60268754592 No Longer Active [facility] Ziglari UNDERCUTTER Active LATUDA 20 MG TABS Take one by mouth daily LURASIDONE HCL 35703463596 No Longer Active [facility] Ziglari UNDERCUTTER Active RISPERDAL 2 MG ORAL TABS Take one by mouth daily RISPERIDONE 22684142876 Active [facility] Ziglari UNDERCUTTER Active HUMALOG 100 UNIT/ML SOLN 100-200u/day with insulin pump INSULIN LISPRO (HUMAN) 78915032187 Active [facility] Ziglari UNDERCUTTER Active MOBIC 15 MG TABS Take one by mouth daily MELOXICAM 10220971041 No Longer Active [facility] Ziglari UNDERCUTTER Active LEXAPRO 20 MG TABS Take one by mouth daily ESCITALOPRAM OXALATE 05535289288 No Longer [facility] UNDERCUT[facility] Active MS CONTIN 15 MG [id number] 1 tab by mouth every 12 hrs MORPHINE SULFATE 22331731223 No Longer Active Maleh Ziglari UNDERCUTTER Active GABAPENTIN 300 MG CAPS by mouth twice a day GABAPENTIN 92770969913 No Longer Active Maleh Ziglari UNDERCUTTER Active CYCLOBENZAPRINE HCL 10 MG TABS Take 1 tab every 6 hours PRN CYCLOBENZAPRINE HCL 68221744963 Active Lala Deras SHANK TAPPER Active AMBIEN 10 MG TABS take 1/2 tab daily at bedtime prn ZOLPIDEM TARTRATE 83929026213 [facility] UNDERC[facility] Active KLOR-CON 10 10 MEQ CR-TABS Take one by mouth daily POTASSIUM CHLORIDE 79251392607 Active [facility] Active FUROSEMIDE 40 MG TABS Take one and 1/2 tabs by mouth daily FUROSEMIDE 22401904580 Active [facility] UND[facility]UTTER Active ULTRAM ER 200 MG [id number] Take one by mouth daily TRAMADOL HCL 94650377389 No Longer [facility] UNDERCUTTER Active SYMBICORT 160-4.5 MCG/ACT AERO 2 puffs bid BUDESONIDE- FORMOTEROL FUMARATE 59922628030 Active [facility] PREVACID 30 MG CPDR Take one by mouth twice daily LANSOPRAZOLE 15320186800 Active [facility] Active ZETIA 10 MG TABS Take one by mouth daily EZETIMIBE 25976100747 Active [facility] Rogelioglari UNDERCUTTER Active GLUCAGON EMERGENCY 1 MG KIT Inject for low blood sugar GLUCAGON (RDNA) 10304958869 Active [facility] Rogelioglari UNDERCUTTER Active ATORVASTATIN CALCIUM 80 MG TABS Take one by mouth daily ATORVASTATIN CALCIUM 58056262996 Active [facility] Rogelioglari UNDERCUTTER Active LIPITOR 40 MG TABS take at bedtime ATORVASTATIN CALCIUM 44739208545 No Longer Active [facility] Rogelioglari UNDERCUTTER Active ASPIRIN 325 MG TABS Take one by mouth daily ASPIRIN 07980250283 Active Jasmyn Mary LPN Active NOVOLOG 100 UNIT/ML SOLN per pump INSULIN ASPART 08667034665 No Longer Active Jasmyn Mary LPN Active RANEXA 1000 MG [id number] 1 by mouth every 12 hrs RANOLAZINE 11568377696 Active Jasmyn Mary LPN Active REGLAN 10 MG TABS 1 tab by mouth after meals and at hs daily METOCLOPRAMIDE HCL 33647929922 Active Jasmyn Mary LPN Active KLOR-CON M20 20 MEQ CR-TABS Take one by mouth daily POTASSIUM CHLORIDE JEANINE CR 62838418405 Active Jasmyn Mary SHANK TAPPER Active WELLBUTRIN 100 MG TABS Take one by mouth 3 times daily, morning, afternoon and evening BUPROPION HCL 88365753377 Active Jasmyn Mayr SHANK TAPPER Active CYMBALTA 60 MG CPEP 2 caps by mouth daily DULOXETINE HCL 49012132299 Active Jasmyn Mary LPN Active RAMIPRIL 10 MG CAPS Take one by mouth daily RAMIPRIL 15696017984 Active Jasmyn Mary SHANK TAPPER Active PERCOCET 10-325 MG TABS one by mouth every 6 hrs as needed for pain OXYCODONE-ACETAMINOPHEN 52413123510 Active Jasmyn Mary LPN Active NITROSTAT 0.4 MG SUBL 1 tab under tongue every 5 min as need for cx pain. not to exceet total of 3 doses in 15 min NITROGLYCERIN 42403475827 Active Jasmyn Mary LPN Active LIPITOR 40 MG TABS take at bedtime LIPITOR 40 MG TABS 892467 ATORVASTATIN CALCIUM Inactive ULTRAM ER 200 MG [id number] Take one by mouth daily ULTRAM ER 200 MG [id number] TRAMADOL HCL Inactive GABAPENTIN 300 MG CAPS by mouth twice a day GABAPENTIN 300 MG CAPS 862325 GABAPENTIN Inactive MS CONTIN 15 MG [id number] 1 tab by mouth every 12 hrs MS CONTIN 15 MG [id number] MORPHINE SULFATE Inactive LEXAPRO 20 MG TABS Take one by mouth daily LEXAPRO 20 MG TABS 784968 ESCITALOPRAM OXALATE Inactive MOBIC 15 MG TABS Take one by mouth daily MOBIC 15 MG TABS 287975 MELOXICAM Inactive LATUDA 20 MG TABS Take one by mouth daily LATUDA 20 MG TABS LURASIDONE HCL Inactive GABAPENTIN 600 MG TABS by mouth twice a day GABAPENTIN 600 MG TABS 235226 GABAPENTIN Inactive LEVOTHYROXINE SODIUM 25 MCG TABS Take one by mouth daily LEVOTHYROXINE SODIUM 25 MCG TABS 476505 LEVOTHYROXINE SODIUM Inactive MS CONTIN 30 MG CR-TABS by mouth twice a day MS CONTIN 30 MG CR-TABS MORPHINE SULFATE Inactive Advance Directives Directive Description Start Date PERMISSION TO SHARE Immunizations Vaccine Administration Date Value Standard Description influenza immunization (Flu Vax) has been administered 05/01/2016 influenza virus vaccine, unspecified formulation influenza immunization (Flu Vax) has been administered 04/26/2015 influenza virus vaccine, unspecified formulation influenza immunization (Flu Vax) has been administered 03/31/2014 influenza virus vaccine, unspecified formulation influenza immunization (Flu Vax) has been administered 05/01/2013 influenza virus vaccine, unspecified formulation pneumococcal immunization administered 01-13-13 pneumococcal polysaccharide vaccine, 23 valent influenza immunization (Flu Vax) has been administered 03/03/2012 influenza virus vaccine, unspecified formulation pneumococcal immunization administered 05/31/2011 pneumococcal polysaccharide vaccine, 23 valent Vital Signs Date Name Value Unit Range Description blood pressure, diastolic - 8462-4 70 mm[Hg] BP ramirez blood pressure, systolic - 8480-6 112 mm[Hg] BP sys height E&M - 8302-2 75.5 [in_us] Bdy height pulse rate E&M - 8867-4 84 /min Heart rate weight E&M - 3141-9 313 [lb_av] Weight Measured blood pressure, diastolic - 8462-4 80 mm[Hg] [...] serum 2.81 u[iU]/mL Lab Report: Basic Metabolic Panel - Chemistry sodium, serum 138 mmol/L 616-388 8493/11/30 potassium, serum 4.9 mmol/L 3.5-5.2 chloride, serum 102 mmol/L 98-107 carbon dioxide, venous blood 30.5 mmol/L 21.0-32.0 blood glucose 212 mg/dL 65-110 calcium, serum 9.0 mg/dL 8.5-10.1 urea nitrogen, blood 18 mg/dL 7-18 creatinine, serum 1.28 mg/dL 0.55-1.30 Lab Report: Basic Metabolic Panel, HGBA1C - Chemistry sodium, serum 138 mmol/L 941-813 9163/08/24 potassium, serum 4.6 mmol/L 3.5-5.2 chloride, serum 100 mmol/L 98-107 carbon dioxide, venous blood 31.8 mmol/L 21.0-32.0 blood glucose 267 mg/dL 65-110 calcium, serum 9.1 mg/dL 8.5-10.1 urea nitrogen, blood 15 mg/dL 7-18 creatinine, serum 1.24 mg/dL 0.55-1.30 hemoglobin A1C, blood, as % of total hemoglobin 8.1 % 4.3-6.0 sodium, serum 138 mmol/L 025-023 6988/02/09 potassium, serum 4.5 mmol/L 3.5-5.2 chloride, serum 100 mmol/L 98-107 carbon dioxide, venous blood 29.0 mmol/L 21.0-32.0 blood glucose 164 mg/dL 65-110 calcium, serum 8.8 mg/dL 8.5-10.1 urea nitrogen, blood 28 mg/dL 7-18 creatinine, serum 1.51 mg/dL 0.55-1.30 hemoglobin A1C, blood, as % of total hemoglobin 7.3 % 4.3-6.0 Lab Report: HGBA1C - Chemistry hemoglobin A1C, blood, as % of total hemoglobin 7.7 % 4.3-6.0 hemoglobin A1C, blood, as % of total hemoglobin 6.9 % 4.3-6.0 Office Visit: Diabetes Visit - Basic LDL target level 100 mg/dL LDL target level 100 mg/dL LDL target level 100 mg/dL LDL target level 100 mg/dL Office Visit: Diabetes Visit - Chemistry cholesterol, target level 200 mg/dL triglyceride, target level 200 mg/dL HDL cholesterol, serum, target level 35 mg/dL cholesterol, target level 200 mg/dL triglyceride, target level 200 mg/dL HDL cholesterol, serum, target level 35 mg/dL cholesterol, target level 200 mg/dL triglyceride, target level 200 mg/dL HDL cholesterol, serum, target level 35 mg/dL cholesterol, target level 200 mg/dL triglyceride, target level 200 mg/dL HDL cholesterol, serum, target level 35 mg/dL Encounters Code Encounter Date Provider Facility CPT-85869 Level 4 Est. Patient 16:31:44 CLAIM ADJUSTER [facility] CPT-74206 Level 3 Est. Patient 13:47:02 CDT [facility] CPT-50952 Level 4 Est. Patient 17:39:08 CDT [facility] CPT-09073 Level 3 Est. Patient 16:08:05 CLAIM ADJUSTER [facility] CPT-43437 Level 4 Est. Patient 16:28:18 CLAIM ADJUSTER [facility] CPT-80390 Level 4 Est. Patient 18:06:10 CDT [facility] CPT-93013 Level 4 Est. Patient 15:14:20 CDT [facility] CPT-74994 Level 3 Est. Patient 14:44:29 CDT [facility] CPT-54083 Level 4 Est. Patient 15:15:35 CLAIM ADJUSTER [facility] CPT-75351 Level 3 Est. Patient 15:07:35 CDT Elias Malagon [facility] [place] CPT-62897 Level 4 Est. Patient 15:40:05 CDT Elias Malagon [facility] [place] CPT-68507 Level 4 Est. Patient 15:32:36 CLAIM ADJUSTER Elias Malagon [facility] [place] CPT-98856 Level 5 Est. Patient 17:33:32 CLAIM ADJUSTER Elias Malagon [facility] [place] CPT-36603 Level 5 Est. Patient 15:05:09 [facility] Level 4 Est. Patient 15:52:02 CDT Elias Malagon [facility] [place] CPT-81131 Level 4 Est. Patient 16:22:51 [facility] Level 4 Est. Patient 17:41:26 [facility] [place] [facility] Level 3 Est. Patient 17:42:24 CDT Elias Malagon [facility] [place] CPT-85064 Level 3 Est. Patient 14:01:37 CDT Evelyne Andrew [facility] CPT-17158 Level 3 Est. Patient 16:13:45 [facility] Level 4 Est. [facility] 17:16:06 [facility] Level 5 Est. Patient 16:08:43 [facility] [place] Procedures Code Procedure Name Date Entry Date Standard Description CPT-43745 HGBA1C - LAB USE ONLY 16:12:38 CLAIM ADJUSTER CPT-15405 BMP - LAB USE ONLY 16:12:38 CLAIM ADJUSTER CPT-29690 Venipuncture Draw Fee 16:12:38 CLAIM ADJUSTER CPT-43721 HGBA1C - LAB USE ONLY 09:42:26 CDT CPT-74506 BMP - LAB USE ONLY 09:42:26 CDT CPT-24700 Venipuncture Draw Fee 09:42:26 CDT CPT-41615 Prevnar 13 16:55:53 CLAIM ADJUSTER CPT-78881 Immunization Single Admin 16:55:53 CLAIM ADJUSTER CPT-98921 Pneumovax 16:04:52 CLAIM ADJUSTER
--- OUTSIDE RECORDS SUMMARY | 2018-07-23 12:00 | XMS REPORT | Clinical Summary ---
Author Author Admin, GARY Organization [facility] Address Unknown Phone Unavailable Allergies, Adverse [...] DIABETES MELLITUS, TYPE I, UNCONTROLLED 250.03 Active Maliheh Ziglari SWITCH OPERATORS SUPERVISOR Diabetes mellitus without mention of complication, type I [juvenile type], uncontrolled DIABETIC HYPOGLYCEMIA, TYPE I, UNCONTROLLED 250.83 Active 12/10 Maliheh Ziglari SWITCH OPERATORS SUPERVISOR Diabetes mellitus with other specified manifestations, type I [juvenile type], uncontrolled Medication List Medication Instructions Start Date Stop Date Generic Name NDC Status Provider Patient Instruction RISPERDAL 1 MG TABS Take one and 1/2 by mouth daily RISPERIDONE 44957673735 Active Maliheh Ziglari SWITCH OPERATORS SUPERVISOR Active MOBIC 15 MG TABS Take one by mouth daily MELOXICAM 32782284468 No Longer Active [facility] Ziglari SWITCH OPERATORS SUPERVISOR Active LEXAPRO 20 MG TABS Take one by mouth daily ESCITALOPRAM OXALATE 80408377268 No Longer Active [facility] Rogelioglari SWITCH OPERATORS SUPERVISOR Active MS CONTIN 30 MG CR-TABS by mouth twice a day MORPHINE SULFATE 38653752288 Active [facility] Ziglari SWITCH OPERATORS SUPERVISOR Active MS CONTIN 15 MG [id number]-MQL 1 tab by mouth every 12 hrs MORPHINE SULFATE 03978552293 No Longer Active [facility] Rogelioglari SWITCH OPERATORS SUPERVISOR Active LATUDA 20 MG TABS Take one by mouth daily LURASIDONE HCL 71294062391 [facility] SWITCH OPERATORS SUPERVISOR Active GABAPENTIN 600 MG TABS by mouth twice a day GABAPENTIN 34713252331 [facility] SWITCH OPERATORS SUPERVISOR Active GABAPENTIN 300 MG CAPS by mouth twice a day GABAPENTIN 42932349093 No Longer Active [facility] Rogelioglari SWITCH OPERATORS SUPERVISOR Active CYCLOBENZAPRINE HCL 10 MG TABS Take 1 tab every 6 hours PRN CYCLOBENZAPRINE HCL 76435606104 Active Lala Deras PATIENT ACCESS MANAGER Active LEVOTHYROXINE SODIUM 25 MCG TABS Take one by mouth daily LEVOTHYROXINE SODIUM 03632552392 Active [facility] Rogelioglari SWITCH OPERATORS SUPERVISOR Active AMBIEN 10 MG TABS take 1/2 tab daily at bedtime prn ZOLPIDEM TARTRATE 77174602900 [facility] SWITCH OPERATORS SUPERVISOR Active KLOR-CON 10 10 MEQ CR-TABS Take one by mouth daily POTASSIUM CHLORIDE 75668230005 [facility] SWITCH OPERATORS SUPERVISOR Active FUROSEMIDE 40 MG TABS Take one and 1/2 tabs by mouth daily FUROSEMIDE 04414566660 [facility] SWITCH OPERATORS SUPERVISOR Active ULTRAM ER 200 MG [id number] Take one by mouth daily TRAMADOL HCL 98600630803 No Longer [facility] SWITCH OPERATORS SUPERVISOR Active SYMBICORT 160-4.5 MCG/ACT AERO 2 puffs bid BUDESONIDE- FORMOTEROL FUMARATE 16780272131 Active [facility] Rogelioglari SWITCH OPERATORS SUPERVISOR Active PREVACID 30 MG CPDR Take one by mouth twice daily LANSOPRAZOLE 42803231632 Active [facility] Rogelioglari SWITCH OPERATORS SUPERVISOR Active ZETIA 10 MG TABS Take one by mouth daily EZETIMIBE 18688666838 [facility] SWITCH OPERATORS SUPERVISOR Active GLUCAGON EMERGENCY 1 MG KIT Inject for low blood sugar GLUCAGON (RDNA) 91794105314 Active [facility] Rogelioglari SWITCH OPERATORS SUPERVISOR Active CARVEDILOL 25 MG TABS Take one by mouth twice daily CARVEDILOL 32190880434 Active [facility] Rogelioglari SWITCH OPERATORS SUPERVISOR Active ATORVASTATIN CALCIUM 80 MG TABS Take one by mouth daily ATORVASTATIN CALCIUM 46384349262 [facility] SWITCH OPERATORS SUPERVISOR Active LIPITOR 40 MG TABS take at bedtime ATORVASTATIN CALCIUM 26942647103 No Longer Active [facility] Rogelioglari SWITCH OPERATORS SUPERVISOR Active ASPIRIN 325 MG TABS Take one by mouth daily ASPIRIN 43918501280 Active Jasmyn Mary LPN Active NOVOLOG 100 UNIT/ML SOLN per pump INSULIN ASPART 41260783532 Active Jasmyn Mary LPN Active RANEXA 1000 MG [id number] 1 by mouth every 12 hrs RANOLAZINE 92958048471 Active Jasmyn Mary LPN Active REGLAN 10 MG TABS 1 tab by mouth after meals and at hs daily METOCLOPRAMIDE HCL 77082141568 Active Jasmyn Mary LPN Active KLOR-CON M20 20 MEQ CR-TABS Take one by mouth daily POTASSIUM CHLORIDE JEANINE CR 79612289785 Active Jasmyn Mary LPN Active WELLBUTRIN 100 MG TABS Take one by mouth 3 times daily, morning, afternoon and evening BUPROPION HCL 51248229651 Active Jasmyn Mary LPN Active CYMBALTA 60 MG CPEP 2 caps by mouth daily DULOXETINE HCL 14158966054 Active Jasmyn Mary LPN Active RAMIPRIL 10 MG CAPS Take one by mouth daily RAMIPRIL 56725571572 Active Jasmyn Mary LPN Active PERCOCET 10-325 MG TABS one by mouth every 6 hrs as needed for pain OXYCODONE-ACETAMINOPHEN 64046267175 Active Jasmyn Mary LPN Active NITROSTAT 0.4 MG SUBL 1 tab under tongue every 5 min as need for cx pain. not to exceet total of 3 doses in 15 min NITROGLYCERIN 13136551993 Active Jasmyn Mary LPN Active LIPITOR 40 MG TABS take at bedtime LIPITOR 40 MG TABS 620463 ATORVASTATIN CALCIUM Inactive ULTRAM ER 200 MG [id number] Take one by mouth daily ULTRAM ER 200 MG [id number]-SSO TRAMADOL HCL Inactive GABAPENTIN 300 MG CAPS by mouth twice a day GABAPENTIN 300 MG CAPS 503734 GABAPENTIN Inactive MS CONTIN 15 MG [id number] 1 tab by mouth every 12 hrs MS CONTIN 15 MG UL83G-NIF MORPHINE SULFATE Inactive LEXAPRO 20 MG TABS Take one by mouth daily LEXAPRO 20 MG TABS 185004 ESCITALOPRAM OXALATE Inactive MOBIC 15 MG TABS Take one by mouth daily MOBIC 15 MG TABS 452655 MELOXICAM Inactive Advance Directives Directive Description Start Date PERMISSION TO SHARE Immunizations Vaccine Administration Date Value Standard Description influenza immunization (Flu Vax) has been administered 03/31/2014 influenza virus vaccine, unspecified formulation influenza immunization (Flu Vax) has been administered 05/01/2013 influenza virus vaccine, unspecified formulation pneumococcal immunization administered 01-13-13 pneumococcal polysaccharide vaccine, 23 valent pneumococcal immunization administered 05/31/2011 pneumococcal polysaccharide vaccine, 23 valent influenza immunization (Flu Vax) has been administered 03/03/2012 influenza virus vaccine, unspecified formulation Vital Signs Date Name Value Unit Range Description blood pressure, diastolic - 8462-4 80 mm[Hg] BP ramirez blood pressure, systolic - 8480-6 128 mm[Hg] BP sys pulse rate E&M - 8867-4 76 /min Heart rate weight E&M - 3141-9 313 [lb_av] Weight Measured blood pressure, diastolic - 8462-4 60 mm[Hg] BP ramirez blood pressure, systolic - 8480-6 122 mm[Hg] BP sys pulse rate E&M - 8867-4 80 /min Heart rate weight E&M - 3141-9 318 [lb_av] Weight Measured blood pressure, diastolic - 8462-4 58 mm[Hg] BP ramirez blood pressure, systolic - 8480-6 120 mm[Hg] BP sys pulse rate E&M - 8867-4 84 /min Heart rate weight E&M - 3141-9 321 [lb_av] Weight Measured blood pressure, diastolic - 8462-4 60 mm[Hg] BP ramirez blood pressure, systolic - 8480-6 130 mm[Hg] BP sys height E&M - 8302-2 75.5 [in_us] Bdy height pulse rate E&M - 8867-4 84 /min Heart rate weight E&M - 3141-9 321 [lb_av] Weight Measured Diagnostic Results Date Name Value Unit Range Description Chart Maintenance: Outside labs entered on flowsheet - Chemistry sodium, serum 136 mmol/L potassium, serum 4.3 mmol/L blood glucose 214 mg/dL creatinine, serum 1.00 mg/dL aspartate aminotransferase (SGOT), serum 12 U/L alanine aminotransferase (SGPT), serum 15 U/L alkaline phosphatase, serum 83 U/L hemoglobin A1C, blood, as % of total hemoglobin 7.1 % sodium, serum 139 mmol/L potassium, serum 4.0 mmol/L blood glucose 63 mg/dL creatinine, serum 1.10 mg/dL hemoglobin A1C, blood, as % of total hemoglobin 6.9 % Chart Maintenance: Outside labs entered on flowsheet - Lab microalbumin, urine <1.2 Lab Report: Basic Metabolic Panel, HGBA1C - Chemistry sodium, serum 141 mmol/L 068-824 4493/04/20 potassium, serum 4.8 mmol/L 3.5-5.2 chloride, serum 101 mmol/L 98-107 carbon dioxide, venous blood 34.5 mmol/L 21.0-32.0 blood glucose 94 mg/dL 65-110 calcium, serum 9.0 mg/dL 8.5-10.1 urea nitrogen, blood 17 mg/dL 7-18 creatinine, serum 1.20 mg/dL 0.60-1.30 hemoglobin A1C, blood, as % of total hemoglobin 7.8 % 4.3-6.0 sodium, serum 140 mmol/L 331-319 4910/07/29 potassium, serum 4.6 mmol/L 3.5-5.2 chloride, serum 102 mmol/L 98-107 carbon dioxide, venous blood 33.3 mmol/L 21.0-32.0 blood glucose 177 mg/dL 65-110 calcium, serum 8.7 mg/dL 8.5-10.1 urea nitrogen, blood 19 mg/dL 7-18 creatinine, serum 1.20 mg/dL 0.60-1.30 hemoglobin A1C, blood, as % of total hemoglobin 7.6 % 4.3-6.0 Office Visit: Diabetes Visit - [...] mg/dL Encounters Code Encounter Date Provider Facility CPT-65783 Level 4 Est. Patient 18:06:10 CDT [facility] CPT-94090 Level 4 Est. Patient 15:14:20 CDT [facility] CPT-06391 Level 3 Est. Patient 14:44:29 CDT [facility] CPT-10179 Level 4 Est. Patient 15:15:35 HOME DELIVERY DRIVER [facility] CPT-68548 Level 3 Est. Patient 15:07:35 CDT [facility] CPT-54304 Level 4 Est. Patient 15:40:05 CDT [facility] CPT-23393 Level 4 Est. Patient 15:32:36 HOME DELIVERY DRIVER [facility] CPT-31076 Level 5 Est. Patient 17:33:32 HOME DELIVERY DRIVER [facility] CPT-07638 Level 5 Est. Patient 15:05:09 CDT [facility] CPT-31010 Level 4 Est. Patient 15:52:02 CDT Elias Malagon [facility] CPT-92960 Level 4 Est. Patient 16:22:51 CDT Elias Malagon [facility] CPT-60054 Level 4 Est. Patient 17:41:26 HOME DELIVERY DRIVER Elias Riccijesus [facility] CPT-47445 Level 3 Est. Patient 17:42:24 CDT Elias Malagon [facility] CPT-80746 Level 3 Est. Patient 14:01:37 CDT Evelyne Morales [facility] CPT-04949 Level 3 Est. Patient 16:13:45 CDT Elias Mercadogeraldo [facility] CPT-56166 Level 4 Est. Patient 17:16:06 CDT Elias Riccijesus [facility] CPT-57109 Level 5 Est. Patient 16:08:43 [facility]
--- OUTSIDE RECORDS SUMMARY | 2018-07-23 12:00 | XMS REPORT | Clinical Summary ---
Author Author Admin, GARY Organization [facility] Address Unknown Phone Unavailable Allergies, Adverse Reactions, [...] TYPE I, UNCONTROLLED 250.03 Active Malgriffin Mercadoglari [employer] Diabetes mellitus without mention of complication, type I [juvenile type], uncontrolled DIABETIC HYPOGLYCEMIA, TYPE I, UNCONTROLLED 250.83 Active 12/10 Malgriffin Ziglari [employer] Diabetes mellitus with other specified manifestations, type I [juvenile type], uncontrolled Continuous insulin infusion pump V46.9 Active Elias Malagon [employer]ET Unspecified machine and device dependence Medication List Medication Instructions Start Date Stop Date Generic Name NDC Status Provider Patient Instruction COREG 12.5 MG ORAL TABS by mouth twice a day CARVEDILOL 47774444708 Active [facility] Ziglari DECK CADET Active MS CONTIN 30 MG CR-TABS by mouth twice a day MORPHINE SULFATE 44201984108 No Longer Active Maleh Ziglari DECK [employer]ET Active ONETOUCH ULTRA BLUE STRP check blood sugars 6x/day GLUCOSE BLOOD 26933743117 [facility] Active LEVOTHYROXINE SODIUM 50 MCG ORAL TABS Take one by mouth daily LEVOTHYROXINE SODIUM 42834070550 Active [facility] Ziglari DECK [employer]ET Active LEVOTHYROXINE SODIUM 25 MCG TABS Take one by mouth daily LEVOTHYROXINE SODIUM 22200224870 No Longer Active [facility] Ziglari DECK [employer]ET Active GABAPENTIN 600 MG TABS by mouth twice a day GABAPENTIN 15166029504 No Longer Active [facility] Ziglari [employer] Active LATUDA 20 MG TABS Take one by mouth daily LURASIDONE HCL 14232609687 No Longer Active [facility] Ziglari [employer] Active RISPERDAL 2 MG ORAL TABS Take one by mouth daily RISPERIDONE 53411857135 Active [facility] Ziglari DECK [employer]ET Active HUMALOG 100 UNIT/ML SOLN 100-200u/day with insulin pump INSULIN LISPRO (HUMAN) 00259670141 Active [facility] Ziglari DECK [employer]ET Active MOBIC 15 MG TABS Take one by mouth daily MELOXICAM 17587804315 No Longer [facility] [employer] Active LEXAPRO 20 MG TABS Take one by mouth daily ESCITALOPRAM OXALATE 22556095088 No Longer Active Maleh Ziglari DECK CADET Active MS CONTIN 15 MG [id number] 1 tab by mouth every 12 hrs MORPHINE SULFATE 28268728397 No Longer Active Maleh Ziglari DECK [employer]ET Active GABAPENTIN 300 MG CAPS by mouth twice a day GABAPENTIN 00326510423 No Longer Active Maleh Ziglari DECK [employer]ET Active CYCLOBENZAPRINE HCL 10 MG TABS Take 1 tab every 6 hours PRN CYCLOBENZAPRINE HCL 32173273559 Active Lala Deras PULPING MACHINE OPERATOR Active AMBIEN 10 MG TABS take 1/2 tab daily at bedtime prn ZOLPIDEM TARTRATE 04519954372 Active Andreavenkata [facility] DECK CADET Active KLOR-CON 10 10 MEQ CR-TABS Take one by mouth daily POTASSIUM CHLORIDE 86169816839 Active [facility]K CAD[facility] Active FUROSEMIDE 40 MG TABS Take one and 1/2 tabs by mouth daily FUROSEMIDE 30840628374 [facility] [employer]K CADET Active ULTRAM ER 200 MG [id number] Take one by mouth daily TRAMADOL HCL 49403328689 No Longer [facility] [employer] Active SYMBICORT 160-4.5 MCG/ACT AERO 2 puffs bid BUDESONIDE- FORMOTEROL FUMARATE 03427441378 [facility] PREVACID 30 MG CPDR Take one by mouth twice daily LANSOPRAZOLE 44236838983 [facility] Active ZETIA 10 MG TABS Take one by mouth daily EZETIMIBE 28530786100 Active [facility] Rogelioglari DECK [employer]ET Active GLUCAGON EMERGENCY 1 MG KIT Inject for low blood sugar GLUCAGON (RDNA) 70326457635 Active [facility] Rogelioglari DECK CADET Active ATORVASTATIN CALCIUM 80 MG TABS Take one by mouth daily ATORVASTATIN CALCIUM 87601949711 Active [facility] Rogelioglari DECK CADET Active LIPITOR 40 MG TABS take at bedtime ATORVASTATIN CALCIUM 95049675509 No Longer Active [facility] Rogelioglari DECK CADET Active ASPIRIN 325 MG TABS Take one by mouth daily ASPIRIN 08763028459 Active Jasmyn Mary LPN Active NOVOLOG 100 UNIT/ML SOLN per pump INSULIN ASPART 68886390924 No Longer Active Jasmyn Mary LPN Active RANEXA 1000 MG [id number] 1 by mouth every 12 hrs RANOLAZINE 09581670032 Active Jasmyn Mary LPN Active REGLAN 10 MG TABS 1 tab by mouth after meals and at hs daily METOCLOPRAMIDE HCL 41124643986 Active Jasmyn Mary LPN Active KLOR-CON M20 20 MEQ CR-TABS Take one by mouth daily POTASSIUM CHLORIDE JEANINE CR 90594680435 Active Jasmyn Mary PULPING MACHINE OPERATOR Active WELLBUTRIN 100 MG TABS Take one by mouth 3 times daily, morning, afternoon and evening BUPROPION HCL 97310595140 Active Jasmyn Mary PULPING MACHINE OPERATOR Active CYMBALTA 60 MG CPEP 2 caps by mouth daily DULOXETINE HCL 76658979785 Active Jasmyn Mary PULPING MACHINE OPERATOR Active RAMIPRIL 10 MG CAPS Take one by mouth daily RAMIPRIL 02321089527 Active Jasmyn Mary PULPING MACHINE OPERATOR Active PERCOCET 10-325 MG TABS one by mouth every 6 hrs as needed for pain OXYCODONE-ACETAMINOPHEN 10866732920 Active Jasmyn Mary LPN Active NITROSTAT 0.4 MG SUBL 1 tab under tongue every 5 min as need for cx pain. not to exceet total of 3 doses in 15 min NITROGLYCERIN 25904200539 Active Jasmyn Mary LPN Active LIPITOR 40 MG TABS take at bedtime LIPITOR 40 MG TABS 766489 ATORVASTATIN CALCIUM Inactive ULTRAM ER 200 MG [id number] Take one by mouth daily ULTRAM ER 200 MG [id number] TRAMADOL HCL Inactive GABAPENTIN 300 MG CAPS by mouth twice a day GABAPENTIN 300 MG CAPS 497932 GABAPENTIN Inactive MS CONTIN 15 MG [id number] 1 tab by mouth every 12 hrs MS CONTIN 15 MG [id number] MORPHINE SULFATE Inactive LEXAPRO 20 MG TABS Take one by mouth daily LEXAPRO 20 MG TABS 876879 ESCITALOPRAM OXALATE Inactive MOBIC 15 MG TABS Take one by mouth daily MOBIC 15 MG TABS 204390 MELOXICAM Inactive LATUDA 20 MG TABS Take one by mouth daily LATUDA 20 MG TABS LURASIDONE HCL Inactive GABAPENTIN 600 MG TABS by mouth twice a day GABAPENTIN 600 MG TABS 102238 GABAPENTIN Inactive LEVOTHYROXINE SODIUM 25 MCG TABS Take one by mouth daily LEVOTHYROXINE SODIUM 25 MCG TABS 728044 LEVOTHYROXINE SODIUM Inactive MS CONTIN 30 MG [...] HGBA1C - Chemistry sodium, serum 138 mmol/L 588-756 0627/02/09 potassium, serum 4.5 mmol/L 3.5-5.2 chloride, serum 100 mmol/L 98-107 carbon dioxide, venous blood 29.0 mmol/L 21.0-32.0 blood glucose 164 mg/dL 65-110 calcium, serum 8.8 mg/dL 8.5-10.1 urea nitrogen, blood 28 mg/dL 7-18 creatinine, serum 1.51 mg/dL 0.55-1.30 hemoglobin A1C, blood, as % of total hemoglobin 7.3 % 4.3-6.0 sodium, serum 138 mmol/L 005-664 4919/08/24 potassium, serum 4.6 mmol/L 3.5-5.2 chloride, serum 100 mmol/L 98-107 carbon dioxide, venous blood 31.8 mmol/L 21.0-32.0 blood glucose 267 mg/dL 65-110 calcium, serum 9.1 mg/dL 8.5-10.1 urea nitrogen, blood 15 mg/dL 7-18 creatinine, serum 1.24 mg/dL 0.55-1.30 hemoglobin A1C, blood, as % of total hemoglobin 8.1 % 4.3-6.0 Lab Report: Basic Metabolic Panel, MICROALBUMIN, HGBA1C - Chemistry sodium, serum 138 mmol/L 444-995 4786/11/04 potassium, serum 3.9 mmol/L 3.5-5.2 chloride, serum [...] mg/dL Encounters Code Encounter Date Provider Facility CPT-92817 Level 3 Est. Patient 13:47:02 CDT [facility] CPT-09142 Level 4 Est. Patient 17:39:08 CDT [facility] CPT-58372 Level 3 Est. Patient 16:08:05 DIRECTOR HEMATOLOGY [facility] CPT-34803 Level 4 Est. Patient 16:28:18 [place]OR HEMATOLOGY [facility] [place] Level 4 Est. Patient 18:06:10 [place] [facility]PT-01165 Level 4 Est. Patient 15:14:20 CDT [facility]PT-11544 Level 3 Est. Patient 14:44:29 CDT [facility]PT-[place]87 Level 4 Est. Patient 15:15:35 DIRECTOR HEMATOLOGY [facility] [place]PT-09257 Level 3 Est. Patient 15:07:35 CDT [facility] [place]PT-62739 Level 4 Est. Patient 15:40:05 CDT Elias Malagon [facility] CPT-28608 Level 4 Est. Patient 15:32:36 DIRECTOR HEMATOLOGY Elias Malagon [facility] CPT-53265 Level 5 Est. Patient 17:33:32 DIRECTOR HEMATOLOGY Andreavenkata Malagon [facility] CPT-59397 Level 5 Est. Patient 15:05:09 CDT Elias Malagon [facility] CPT-72879 Level 4 Est. Patient 15:52:02 [facility] Level 4 Est. Patient 16:22:51 CDT [facility]86 Level 4 Est. Patient 17:41:26 DIRECTOR HEMATOLOGY [facility] [place]PT-10877 Level 3 Est. Patient 17:42:24 [facility]PT[facility] Level 3 Est. Patient 14:01:[address] [facility] CPT-91794 Level 3 Est. Patient 16:13:45 [facility]PT-57538 Level 4 Est. Patient 17:16:06 CD[facility] CPT-74312 Level 5 Est. Patient 16:08:43 CDT [facility] Procedures Code Procedure Name Date Entry Date Standard Description CPT-13909 HGBA1C - LAB USE ONLY 09:42:26 CDT CPT-38473 BMP - LAB USE ONLY 09:42:26 CDT CPT-00254 Venipuncture Draw Fee 09:42:26 CDT CPT-21578 Prevnar 13 16:55:53 DIRECTOR HEMATOLOGY CPT-76105 Immunization Single Admin 16:55:53 DIRECTOR HEMATOLOGY CPT-62551 Pneumovax 16:04:52 DIRECTOR HEMATOLOGY
--- OUTSIDE RECORDS SUMMARY | 2018-07-23 12:01 | XMS REPORT | Clinical Summary ---
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 Unspecified machine and device dependence Medication List Medication Instructions Start Date Stop Date Generic Name NDC Status Provider Patient Instruction ONETOUCH ULTRA BLUE STRP check blood sugars 6x/day GLUCOSE BLOOD 01269521303 Active [facility] 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 LEVOTHYROXINE SODIUM 50 MCG ORAL TABS Take one by mouth daily LEVOTHYROXINE SODIUM 53485677310 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 LEVOTHYROXINE SODIUM 25 MCG TABS Take one by mouth daily LEVOTHYROXINE SODIUM 57006659759 No Longer Active [facility] 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 GABAPENTIN 600 MG TABS by mouth twice a day GABAPENTIN 30806665110 No Longer Active [facility] 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 LATUDA 20 MG TABS Take one by mouth daily LURASIDONE HCL 09063843759 No Longer 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 RISPERDAL 2 MG ORAL TABS Take one by mouth daily RISPERIDONE 97671221654 Active [facility] 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 HUMALOG 100 UNIT/ML SOLN 100-200u/day with insulin pump INSULIN LISPRO (HUMAN) 11042804705 Active [facility] 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 MOBIC 15 MG TABS Take one by mouth daily MELOXICAM 78691411197 No Longer Active [facility] 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 LEXAPRO 20 MG TABS Take one by mouth daily ESCITALOPRAM OXALATE 17062502067 No Longer Active [facility] 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 MS CONTIN 30 MG CR-TABS by mouth twice a day MORPHINE SULFATE 20229616862 Active [facility] 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 MS CONTIN 15 MG [id number] 1 tab by mouth every 12 hrs MORPHINE SULFATE 50184775004 No Longer Active [facility] 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 GABAPENTIN 300 MG CAPS by mouth twice a day GABAPENTIN 94600743903 No Longer Active [facility] 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 CYCLOBENZAPRINE HCL 10 MG TABS Take 1 tab every 6 hours PRN CYCLOBENZAPRINE HCL 17360569208 Active Lala Deras DEICER ELEMENT WINDER MACHINE Active AMBIEN 10 MG TABS take 1/2 tab daily at bedtime prn ZOLPIDEM TARTRATE 14915767262 Active [facility] 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 KLOR-CON 10 10 MEQ CR-TABS Take one by mouth daily POTASSIUM CHLORIDE 85727138993 Active [facility] Rogelioglari 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 FUROSEMIDE 40 MG TABS Take one and 1/2 tabs by mouth daily FUROSEMIDE 01618903152 Active [facility] 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 ULTRAM ER 200 MG [id number] Take one by mouth daily TRAMADOL HCL 75443552251 No Longer Active [facility] 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 SYMBICORT 160-4.5 MCG/ACT AERO 2 puffs bid BUDESONIDE- FORMOTEROL FUMARATE 77713076114 Active [facility] Rogelioglari 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 PREVACID 30 MG CPDR Take one by mouth twice daily LANSOPRAZOLE 87354496225 Active [facility] 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 ZETIA 10 MG TABS Take one by mouth daily EZETIMIBE 68129388942 Active [facility] Rogelioglari 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 GLUCAGON EMERGENCY 1 MG KIT Inject for low blood sugar GLUCAGON (RDNA) 98656973529 Active [facility] Rogelioglari 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 CARVEDILOL 25 MG TABS Take one by mouth twice daily CARVEDILOL 91406524696 Active [facility] Rogelioglari 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 ATORVASTATIN CALCIUM 80 MG TABS Take one by mouth daily ATORVASTATIN CALCIUM 01597302310 Active [facility] Rogelioglari 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 LIPITOR 40 MG TABS take at bedtime ATORVASTATIN CALCIUM 82820002202 No Longer Active [facility] Rogelioglari 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 ASPIRIN 325 MG TABS Take one by mouth daily ASPIRIN 92352314915 Active Jasmyn Mary LPN Active NOVOLOG 100 UNIT/ML SOLN per pump INSULIN ASPART 84868204290 No Longer Active Jasmyn Mary LPN Active RANEXA 1000 MG [id number] 1 by mouth every 12 hrs RANOLAZINE 53797670921 Active Jasmyn Mary LPN Active REGLAN 10 MG TABS 1 tab by mouth after meals and at hs daily METOCLOPRAMIDE HCL 78356456600 Active Jasmyn Mary DEICER ELEMENT WINDER MACHINE Active KLOR-CON M20 20 MEQ CR-TABS Take one by mouth daily POTASSIUM CHLORIDE JEANINE CR 62013116217 Active Jasmyn Mary DEICER ELEMENT WINDER MACHINE Active WELLBUTRIN 100 MG TABS Take one by mouth 3 times daily, morning, afternoon and evening BUPROPION HCL 02651703242 Active Jasmyn Mary DEICER ELEMENT WINDER MACHINE Active CYMBALTA 60 MG CPEP 2 caps by mouth daily DULOXETINE HCL 42481858795 Active Jasmyn Mary DEICER ELEMENT WINDER MACHINE Active RAMIPRIL 10 MG CAPS Take one by mouth daily RAMIPRIL 46443067215 Active Jasmyn Mary DEICER ELEMENT WINDER MACHINE Active PERCOCET 10-325 MG TABS one by mouth every 6 hrs as needed for pain OXYCODONE-ACETAMINOPHEN 03789697031 Active Jasmyn Mary DEICER ELEMENT WINDER MACHINE Active NITROSTAT 0.4 MG SUBL 1 tab under tongue every 5 min as need for cx pain. not to exceet total of 3 doses in 15 min NITROGLYCERIN 94099399385 Active Jasmyn Mary LPN Active LIPITOR 40 MG TABS take at bedtime LIPITOR 40 MG TABS 190008 ATORVASTATIN CALCIUM Inactive ULTRAM ER 200 MG [id number] Take one by mouth daily ULTRAM ER 200 MG [id number] TRAMADOL HCL Inactive GABAPENTIN 300 MG CAPS by mouth twice a day GABAPENTIN 300 MG CAPS 521208 GABAPENTIN Inactive MS CONTIN 15 MG [id number] 1 tab by mouth every 12 hrs MS CONTIN 15 MG [id number] MORPHINE SULFATE Inactive LEXAPRO 20 MG TABS Take one by mouth daily LEXAPRO 20 MG TABS 543402 ESCITALOPRAM OXALATE Inactive MOBIC 15 MG TABS Take one by mouth daily MOBIC 15 MG TABS 004868 MELOXICAM Inactive LATUDA 20 MG TABS Take one by mouth daily LATUDA 20 MG TABS LURASIDONE HCL Inactive GABAPENTIN 600 MG TABS by mouth twice a day GABAPENTIN 600 MG TABS 754855 GABAPENTIN Inactive LEVOTHYROXINE SODIUM 25 MCG TABS Take one by mouth daily LEVOTHYROXINE SODIUM 25 MCG TABS 959878 LEVOTHYROXINE SODIUM Inactive Advance Directives Directive Description Start Date PERMISSION TO SHARE Immunizations Vaccine Administration Date Value Standard Description influenza immunization (Flu Vax) has been administered 04/26/2015 influenza virus vaccine, unspecified formulation influenza immunization (Flu Vax) has been administered 03/31/2014 influenza virus vaccine, unspecified formulation influenza immunization (Flu Vax) has been administered 05/01/2013 influenza virus vaccine, unspecified formulation pneumococcal immunization administered 7-16- pneumococcal polysaccharide vaccine, 23 valent pneumococcal immunization administered 05/31/2011 pneumococcal polysaccharide vaccine, 23 valent influenza immunization (Flu Vax) has been administered 03/03/2012 influenza virus vaccine, unspecified formulation Vital Signs Date Name Value Unit Range Description blood pressure, diastolic - 8462-4 60 mm[Hg] [...] E&M - 3141-9 313 [lb_av] Weight Measured Diagnostic Results Date Name Value Unit Range Description Lab Report: Basic Metabolic Panel, HGBA1C - Chemistry sodium, serum 140 mmol/L 434-434 7169/07/29 potassium, serum 4.6 mmol/L 3.5-5.2 chloride, serum 102 mmol/L 98-107 carbon dioxide, venous blood 33.3 mmol/L 21.0-32.0 blood glucose 177 mg/dL 65-110 calcium, serum 8.7 mg/dL 8.5-10.1 urea nitrogen, blood 19 mg/dL 7-18 creatinine, serum 1.20 mg/dL 0.60-1.30 hemoglobin A1C, blood, as % of total hemoglobin 7.6 % 4.3-6.0 sodium, serum 138 mmol/L 146-589 6874/02/09 potassium, serum 4.5 mmol/L 3.5-5.2 chloride, serum 100 mmol/L 98-107 carbon dioxide, venous blood 29.0 mmol/L 21.0-32.0 blood glucose 164 mg/dL 65-110 calcium, serum 8.8 mg/dL 8.5-10.1 urea nitrogen, blood 28 mg/dL 7-18 creatinine, serum 1.51 mg/dL 0.55-1.30 hemoglobin A1C, blood, as % of total hemoglobin 7.3 % 4.3-6.0 Lab Report: Basic Metabolic Panel, MICROALBUMIN, HGBA1C - Chemistry albumin/creatinine ratio, urine < 30 mg/g mg/g{creat} 0-29 hemoglobin A1C, blood, as % of total hemoglobin 7.9 % 4.3-6.0 sodium, serum 138 mmol/L 662-935 7808/11/04 potassium, serum 3.9 mmol/L 3.5-5.2 chloride, serum 102 mmol/L 98-107 carbon dioxide, venous blood 28.6 mmol/L 21.0-32.0 blood glucose 114 mg/dL 65-110 calcium, serum 8.6 mg/dL 8.5-10.1 urea nitrogen, blood 26 mg/dL 7-18 creatinine, serum 1.51 mg/dL 0.55-1.30 Lab Report: Basic Metabolic Panel, MICROALBUMIN, HGBA1C - Lab microalbumin, urine 30 0-19 Office Visit: Diabetes Visit - Chemistry cholesterol, [...] mg/dL Encounters Code Encounter Date Provider Facility CPT-68920 Level 4 Est. Patient 17:39:08 CDT Elias Malagon [facility] CPT-84142 Level 3 Est. Patient 16:08:05 CINDER MAN Elias Malagon [facility] CPT-45336 Level 4 Est. Patient 16:28:18 CINDER MAN Elias Malagon [facility] CPT-57954 Level 4 Est. Patient 18:06:10 CDT [facility] Manas [facility] CPT-55751 Level 4 Est. Patient 15:14:[facility] CPT-44051 Level 3 Est. Patient 14:44:29 CDT [facility] Level 4 Est. Patient 15:15:35 CINDER MAN Andreavenkata Malagon [facility] CPT-84796 Level 3 Est. Patient 15:07:35 CDT [facility]69083 Level 4 Est. Patient 15:40:05 CDT [facility] CPT-94829 Level 4 Est. Patient 15:32:36 CINDER MAN Elias Malagon [facility] CPT-72298 Level 5 Est. Patient 17:33:32 CINDER MAN Andreavenkata Malagon [facility] CPT-93779 Level 5 Est. Patient 15:05:09 CDT [facility]77 Level 4 Est. Patient 15:52:02 CDT [facility] CPT-55957 Level 4 Est. Patient 16:22:51 [facility] Level 4 Est. Patient 17:41:26 CINDER MAN [facility] CPT-07234 Level 3 Est. Patient 17:42:24 CDT [facility]-69567 Level 3 Est. Patient 14:01:37 CDT Evelyne Andrew [facility] CPT-54549 Level 3 Est. Patient 16:13:45 CDT [facility] CPT-72094 Level 4 Est. Patient 17:16:06 CDT [facility] CPT-60182 Level 5 Est. Patient 16:08:43 CDT [facility] Procedures Code Procedure Name Date Entry Date Standard Description CPT-50737 Prevnar 13 16:55:53 CINDER MAN CPT-82401 Immunization Single Admin 16:55:53 CINDER MAN CPT-44181 Pneumovax 16:04:52 CINDER MAN
--- OUTSIDE RECORDS SUMMARY | 2018-07-23 12:01 | XMS REPORT | Clinical Summary ---
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.83 Active 12/10 Maliheh Ziglari STAPLE CUTTER Diabetes mellitus with other specified manifestations, type I [juvenile type], uncontrolled Continuous insulin infusion pump V46.9 Active Elias Mercadoglari STAPLE CUTTER Unspecified machine and device dependence Medication List Medication Instructions Start Date Stop Date Generic Name NDC Status Provider Patient Instruction ONETOUCH ULTRA BLUE STRP check blood sugars 6x/day GLUCOSE BLOOD 87423080040 Active [facility] Ziglari STAPLE CUTTER Active LEVOTHYROXINE SODIUM 50 MCG ORAL TABS Take one by mouth daily LEVOTHYROXINE SODIUM 09003227870 Active [facility] Ziglari STAPLE CUTTER Active LEVOTHYROXINE SODIUM 25 MCG TABS Take one by mouth daily LEVOTHYROXINE SODIUM 87645369062 No Longer [facility] Active GABAPENTIN 600 MG TABS by mouth twice a day GABAPENTIN 94573815245 No Longer [facility] STAPLE CUTTER Active LATUDA 20 MG TABS Take one by mouth daily LURASIDONE HCL 08742213452 No Longer [facility] STAPLE CUTTER Active RISPERDAL 2 MG ORAL TABS Take one by mouth daily RISPERIDONE 04439423772 [facility] STAPLE CUTTER Active HUMALOG 100 UNIT/ML SOLN 100-200u/day with insulin pump INSULIN LISPRO (HUMAN) 23228211679 [facility] STAPLE CUTTER Active MOBIC 15 MG TABS Take one by mouth daily MELOXICAM 15664147999 No Longer [facility] STAPLE CUTTER Active LEXAPRO 20 MG TABS Take one by mouth daily ESCITALOPRAM OXALATE 87858823832 No Longer Active [facility] STAPLE CUTTER Active MS CONTIN 30 MG CR-TABS by mouth twice a day MORPHINE SULFATE 32749198142 [facility] STAPLE CUTTER Active MS CONTIN 15 MG [id number] 1 tab by mouth every 12 hrs MORPHINE SULFATE 77018019035 No Longer [facility] STAPLE CUTTER Active GABAPENTIN 300 MG CAPS by mouth twice a day GABAPENTIN 65587885788 No Longer Active [facility] Ziglari STAPLE CUTTER Active CYCLOBENZAPRINE HCL 10 MG TABS Take 1 tab every 6 hours PRN CYCLOBENZAPRINE HCL 97105613225 Active Lala Deras MANUFACTURING OPERATIONS MANAGER Active AMBIEN 10 MG TABS take 1/2 tab daily at bedtime prn ZOLPIDEM TARTRATE 75713289888 Active [facility]AP[facility] CUTTER Active KLOR-CON 10 10 MEQ CR-TABS Take one by mouth daily POTASSIUM CHLORIDE 01914770580 Active [facility] Rogelioglari STAPLE CUTTER Active FUROSEMIDE 40 MG TABS Take one and 1/2 tabs by mouth daily FUROSEMIDE 80703323521 Active [facility] Rogelioari STAPLE CUTTER Active ULTRAM ER 200 MG [id number] Take one by mouth daily TRAMADOL HCL 72943958683 No Longer Active [facility] STAPLE CUTTER Active SYMBICORT 160-4.5 MCG/ACT AERO 2 puffs bid BUDESONIDE- FORMOTEROL FUMARATE 85414131085 Active [facility] Rogelioglari STAPLE CUTTER Active PREVACID 30 MG CPDR Take one by mouth twice daily LANSOPRAZOLE 10765756524 Active [facility] STAPLE CUTTER Active ZETIA 10 MG TABS Take one by mouth daily EZETIMIBE 01265619804 Active [facility] Rogelioglari STAPLE CUTTER Active GLUCAGON EMERGENCY 1 MG KIT Inject for low blood sugar GLUCAGON (RDNA) 16274795946 Active [facility] Rogelioglari STAPLE CUTTER Active CARVEDILOL 25 MG TABS Take one by mouth twice daily CARVEDILOL 07429805309 Active [facility] Rogelioglari STAPLE CUTTER Active ATORVASTATIN CALCIUM 80 MG TABS Take one by mouth daily ATORVASTATIN CALCIUM 92693575980 Active [facility] Rogelioglari STAPLE CUTTER Active LIPITOR 40 MG TABS take at bedtime ATORVASTATIN CALCIUM 39115779564 No Longer Active [facility] Rogelioglari STAPLE CUTTER Active ASPIRIN 325 MG TABS Take one by mouth daily ASPIRIN 37063794359 Active Jasmyn Mary LPN Active NOVOLOG 100 UNIT/ML SOLN per pump INSULIN ASPART 31176678877 No Longer Active Jasmyn Mary LPN Active RANEXA 1000 MG [id number] 1 by mouth every 12 hrs RANOLAZINE 90728775666 Active Jasmyn Mary LPN Active REGLAN 10 MG TABS 1 tab by mouth after meals and at hs daily METOCLOPRAMIDE HCL 97723011641 Active Jasmyn Mary LPN Active KLOR-CON M20 20 MEQ CR-TABS Take one by mouth daily POTASSIUM CHLORIDE JEANINE CR 62510083724 Active Jasmyn Mary MANUFACTURING OPERATIONS MANAGER Active WELLBUTRIN 100 MG TABS Take one by mouth 3 times daily, morning, afternoon and evening BUPROPION HCL 97899141336 Active Jasmyn Mary MANUFACTURING OPERATIONS MANAGER Active CYMBALTA 60 MG CPEP 2 caps by mouth daily DULOXETINE HCL 23662396196 Active Jasmyn Mary MANUFACTURING OPERATIONS MANAGER Active RAMIPRIL 10 MG CAPS Take one by mouth daily RAMIPRIL 91107021332 Active Jasmyn Mary MANUFACTURING OPERATIONS MANAGER Active PERCOCET 10-325 MG TABS one by mouth every 6 hrs as needed for pain OXYCODONE-ACETAMINOPHEN 94904314633 Active Jasmyn Mary LPN Active NITROSTAT 0.4 MG SUBL 1 tab under tongue every 5 min as need for cx pain. not to exceet total of 3 doses in 15 min NITROGLYCERIN 44471267274 Active Jasmyn Mary LPN Active LIPITOR 40 MG TABS take at bedtime LIPITOR 40 MG TABS 984020 ATORVASTATIN CALCIUM Inactive ULTRAM ER 200 MG [id number] Take one by mouth daily ULTRAM ER 200 MG [id number] TRAMADOL HCL Inactive GABAPENTIN 300 MG CAPS by mouth twice a day GABAPENTIN 300 MG CAPS 379515 GABAPENTIN Inactive MS CONTIN 15 MG [id number] 1 tab by mouth every 12 hrs MS CONTIN 15 MG [id number] MORPHINE SULFATE Inactive LEXAPRO 20 MG TABS Take one by mouth daily LEXAPRO 20 MG TABS 619832 ESCITALOPRAM OXALATE Inactive MOBIC 15 MG TABS Take one by mouth daily MOBIC 15 MG TABS 302218 MELOXICAM Inactive LATUDA 20 MG TABS Take one by mouth daily LATUDA 20 MG TABS LURASIDONE HCL Inactive GABAPENTIN 600 MG TABS by mouth twice a day GABAPENTIN 600 MG TABS 119703 GABAPENTIN Inactive LEVOTHYROXINE SODIUM 25 MCG TABS Take one by mouth daily LEVOTHYROXINE SODIUM 25 MCG TABS 994018 LEVOTHYROXINE SODIUM Inactive Advance Directives Directive Description [...] HGBA1C - Chemistry sodium, serum 140 mmol/L 879-729 5066/07/29 potassium, serum 4.6 mmol/L 3.5-5.2 chloride, serum 102 mmol/L 98-107 carbon dioxide, venous blood 33.3 mmol/L 21.0-32.0 blood glucose 177 mg/dL 65-110 calcium, serum 8.7 mg/dL 8.5-10.1 urea nitrogen, blood 19 mg/dL 7-18 creatinine, serum 1.20 mg/dL 0.60-1.30 hemoglobin A1C, blood, as % of total hemoglobin 7.6 % 4.3-6.0 sodium, serum 138 mmol/L 349-941 5481/02/09 potassium, serum 4.5 mmol/L 3.5-5.2 chloride, serum [...] 7.9 % 4.3-6.0 sodium, serum 138 mmol/L 892-242 0238/11/04 potassium, serum 3.9 mmol/L 3.5-5.2 chloride, serum [...] mg/dL Encounters Code Encounter Date Provider Facility CPT-87900 Level 4 Est. Patient 17:39:08 CDT Elias Malagon [facility] CPT-99327 Level 3 Est. Patient 16:08:05 HANDBAG OPERATOR Elias Malagon [facility] CPT-19880 Level 4 Est. Patient 16:28:18 HANDBAG OPERATOR Elias Malagon [facility] CPT-54602 Level 4 Est. Patient 18:06:10 [facility] CPT-76887 Level 4 Est. Patient 15:14:20 CDT [facility] Keiryari [facility] CPT-69434 Level 3 Est. Patient 14:44:29 CDT [facility] Level 4 Est. Patient 15:15:35 HANDBAG OPERATOR Andreavenkata Malagon [facility] CPT-04287 Level 3 Est. Patient 15:07:35 [facility] CPT-87763 Level 4 Est. Patient 15:40:05 [facility] Level 4 Est. Patient 15:32:36 HANDBAG OPERATOR Elias Malagon [facility] CPT-54714 Level 5 Est. Patient 17:33:32 HANDBAG OPERATOR Andreavenkata Ricciari [facility] CPT-51021 Level 5 Est. Patient 15:05:09 CDT [facility] Level 4 Est. Patient 15:52:02 [facility] Level 4 Est. Patient 16:22:51 [facility] Level 4 Est. Patient 17:41:26 HANDBAG OPERATOR [facility] CPT-15322 Level 3 Est. Patient 17:42:24 CD[facility]16215 Level 3 Est. Patient 14:01:37 CDT [facility] CPT-20083 Level 3 Est. Patient 16:13:45 CDT [facility] CPT-60551 Level 4 Est. Patient 17:16:06 CDT [facility] CPT-79856 Level 5 Est. Patient 16:08:43 CDT [facility] Procedures Code Procedure Name Date Entry Date Standard Description CPT-55473 Prevnar 13 16:55:53 HANDBAG OPERATOR CPT-04183 Immunization Single Admin 16:55:53 HANDBAG OPERATOR CPT-20128 Pneumovax 16:04:52 HANDBAG OPERATOR
--- OUTSIDE RECORDS SUMMARY | 2018-07-23 12:02 | XMS REPORT | Clinical Summary ---
Author Author Admin, GARY Organization [facility] Address Unknown Phone Unavailable Allergies, [...] TYPE I, UNCONTROLLED 250.03 Active Malgriffin Ziglari CHECKER CASHIER Diabetes mellitus without mention of complication, type I [juvenile type], uncontrolled DIABETIC HYPOGLYCEMIA, TYPE I, UNCONTROLLED 250.83 Active 12/10 Malgriffin Ziglari CHECKER CASHIER Diabetes mellitus with other specified manifestations, type I [juvenile type], uncontrolled Continuous insulin infusion pump V46.9 Active Elias Malagon CHECKER CASHIER Unspecified machine and device dependence Medication List Medication Instructions Start Date Stop Date Generic Name NDC Status Provider Patient Instruction COREG 12.5 MG ORAL TABS by mouth twice a day CARVEDILOL 66330949753 Active [facility] Ziglari CHECKER CASHIER Active MS CONTIN 30 MG CR-TABS by mouth twice a day MORPHINE SULFATE 41122695647 No Longer Active Maleh Ziglari CHECKER CASHIER Active ONETOUCH ULTRA BLUE STRP check blood sugars 6x/day GLUCOSE BLOOD 81693891484 [facility] CHECKER CASHIER Active LEVOTHYROXINE SODIUM 50 MCG ORAL TABS Take one by mouth daily LEVOTHYROXINE SODIUM 12182328207 [facility] CHECKER CASHIER Active LEVOTHYROXINE SODIUM 25 MCG TABS Take one by mouth daily LEVOTHYROXINE SODIUM 07828723516 No Longer Active [facility] Ziglari CHECKER CASHIER Active GABAPENTIN 600 MG TABS by mouth twice a day GABAPENTIN 13027447946 No Longer Active [facility] Ziglari CHECKER CASHIER Active LATUDA 20 MG TABS Take one by mouth daily LURASIDONE HCL 00023264939 No Longer Active [facility] Ziglari CHECKER CASHIER Active RISPERDAL 2 MG ORAL TABS Take one by mouth daily RISPERIDONE 61374544871 Active [facility] Ziglari CHECKER CASHIER Active HUMALOG 100 UNIT/ML SOLN 100-200u/day with insulin pump INSULIN LISPRO (HUMAN) 33673007260 Active [facility] Ziglari CHECKER CASHIER Active MOBIC 15 MG TABS Take one by mouth daily MELOXICAM 01270717980 No Longer Active [facility] Ziglari CHECKER CASHIER Active LEXAPRO 20 MG TABS Take one by mouth daily ESCITALOPRAM OXALATE 91825557922 No Longer Active Maleh Ziglari CHECKER CASHIER Active MS CONTIN 15 MG [id number] 1 tab by mouth every 12 hrs MORPHINE SULFATE 11521472077 No Longer Active Maleh Ziglari CHECKER CASHIER Active GABAPENTIN 300 MG CAPS by mouth twice a day GABAPENTIN 49874206062 No Longer Active Maliheh Ziglari CHECKER CASHIER Active CYCLOBENZAPRINE HCL 10 MG TABS Take 1 tab every 6 hours PRN CYCLOBENZAPRINE HCL 63005534344 Active Lala Saranya Deras DIESEL ROLLER OPERATOR Active AMBIEN 10 MG TABS take 1/2 tab daily at bedtime prn ZOLPIDEM TARTRATE 23570182858 Active [facility] CHECKER CASHIER Active KLOR-CON 10 10 MEQ CR-TABS Take one by mouth daily POTASSIUM CHLORIDE 90408063861 Active [facility] Active FUROSEMIDE 40 MG TABS Take one and 1/2 tabs by mouth daily FUROSEMIDE 23353595290 Active [facility] CHECKER CASHIER Active ULTRAM ER 200 MG [id number] Take one by mouth daily TRAMADOL HCL 90412138287 No Longer Active [facility] Rogelioglari CHECKER CASHIER Active SYMBICORT 160-4.5 MCG/ACT AERO 2 puffs bid BUDESONIDE- FORMOTEROL FUMARATE 17449573657 Active [facility] Active PREVACID 30 MG CPDR Take one by mouth twice daily LANSOPRAZOLE 53209075090 Active [facility] Active ZETIA 10 MG TABS Take one by mouth daily EZETIMIBE 41491773745 Active [facility] Rogelioari CHECKER CASHIER Active GLUCAGON EMERGENCY 1 MG KIT Inject for low blood sugar GLUCAGON (RDNA) 20442389491 Active [facility] Rogelioglari CHECKER CASHIER Active ATORVASTATIN CALCIUM 80 MG TABS Take one by mouth daily ATORVASTATIN CALCIUM 34826280001 Active [facility] Rogelioari CHECKER CASHIER Active LIPITOR 40 MG TABS take at bedtime ATORVASTATIN CALCIUM 86766242943 No Longer Active [facility] Rogelioglari CHECKER CASHIER Active ASPIRIN 325 MG TABS Take one by mouth daily ASPIRIN 16350630722 Active Jasmyn Mary LPN Active NOVOLOG 100 UNIT/ML SOLN per pump INSULIN ASPART 80939117035 No Longer Active Jasmyn Mary LPN Active RANEXA 1000 MG [id number] 1 by mouth every 12 hrs RANOLAZINE 83856282593 Active Jasmyn Mary LPN Active REGLAN 10 MG TABS 1 tab by mouth after meals and at hs daily METOCLOPRAMIDE HCL 33061528215 Active Jasmyn Mary LPN Active KLOR-CON M20 20 MEQ CR-TABS Take one by mouth daily POTASSIUM CHLORIDE JEANINE CR 96412762278 Active Jasmyn Mary DIESEL ROLLER OPERATOR Active WELLBUTRIN 100 MG TABS Take one by mouth 3 times daily, morning, afternoon and evening BUPROPION HCL 51145806482 Active Jasmyn Mary DIESEL ROLLER OPERATOR Active CYMBALTA 60 MG CPEP 2 caps by mouth daily DULOXETINE HCL 27346013413 Active Jasmyn Mary LPN Active RAMIPRIL 10 MG CAPS Take one by mouth daily RAMIPRIL 16681573209 Active Jasmyn Mary LPN Active PERCOCET 10-325 MG TABS one by mouth every 6 hrs as needed for pain OXYCODONE-ACETAMINOPHEN 34236733979 Active Jasmyn Mary LPN Active NITROSTAT 0.4 MG SUBL 1 tab under tongue every 5 min as need for cx pain. not to exceet total of 3 doses in 15 min NITROGLYCERIN 33483539478 Active Jasmyn Mary LPN Active LIPITOR 40 MG TABS take at bedtime LIPITOR 40 MG TABS 611132 ATORVASTATIN CALCIUM Inactive ULTRAM ER 200 MG [id number] Take one by mouth daily ULTRAM ER 200 MG [id number] TRAMADOL HCL Inactive GABAPENTIN 300 MG CAPS by mouth twice a day GABAPENTIN 300 MG CAPS 332977 GABAPENTIN Inactive MS CONTIN 15 MG [id number] 1 tab by mouth every 12 hrs MS CONTIN 15 MG [id number]-XWB MORPHINE SULFATE Inactive LEXAPRO 20 MG TABS Take one by mouth daily LEXAPRO 20 MG TABS 950887 ESCITALOPRAM OXALATE Inactive MOBIC 15 MG TABS Take one by mouth daily MOBIC 15 MG TABS 208018 MELOXICAM Inactive LATUDA 20 MG TABS Take one by mouth daily LATUDA 20 MG TABS LURASIDONE HCL Inactive GABAPENTIN 600 MG TABS by mouth twice a day GABAPENTIN 600 MG TABS 507606 GABAPENTIN Inactive LEVOTHYROXINE SODIUM 25 MCG TABS Take one by mouth daily LEVOTHYROXINE SODIUM 25 MCG TABS 356163 LEVOTHYROXINE SODIUM Inactive MS CONTIN 30 MG [...] Panel - Chemistry sodium, serum 138 mmol/L 337-287 1007/11/30 potassium, serum 4.9 mmol/L 3.5-5.2 chloride, serum 102 mmol/L 98-107 carbon dioxide, venous blood 30.5 mmol/L 21.0-32.0 blood glucose 212 mg/dL 65-110 calcium, serum 9.0 mg/dL 8.5-10.1 urea nitrogen, blood 18 mg/dL 7-18 creatinine, serum 1.28 mg/dL 0.55-1.30 Lab Report: Basic Metabolic Panel, HGBA1C - Chemistry sodium, serum 138 mmol/L 613-683 9816/08/24 potassium, serum 4.6 mmol/L 3.5-5.2 chloride, serum 100 mmol/L 98-107 carbon dioxide, venous blood 31.8 mmol/L 21.0-32.0 blood glucose 267 mg/dL 65-110 calcium, serum 9.1 mg/dL 8.5-10.1 urea nitrogen, blood 15 mg/dL 7-18 creatinine, serum 1.24 mg/dL 0.55-1.30 hemoglobin A1C, blood, as % of total hemoglobin 8.1 % 4.3-6.0 sodium, serum 138 mmol/L 269-271 6304/02/09 potassium, serum 4.5 mmol/L 3.5-5.2 chloride, serum [...] mg/dL Encounters Code Encounter Date Provider Facility CPT-10073 Level 4 Est. Patient 16:31:44 ONCOLOGY NURSE [facility] Level 3 Est. Patient 13:47:02 CDT [facility] CPT-72160 Level 4 Est. Patient 17:39:08 CDT [facility] CPT-51250 Level 3 Est. Patient 16:08:05 ONCOLOGY NURSE [facility] CPT-93817 Level 4 Est. Patient 16:28:18 [facility]URSE [facility] Level 4 Est. Patient 18:06:10 [place] [facility] [place]57739 Level 4 Est. Patient 15:14:20 [place] [facility] [place]PT-28046 Level 3 Est. Patient 14:44:29 CD[place] [facility] [place]PT-98301 Level 4 Est. Patient 15:15:35 [place]OGY NURSE [facility] [place]PT-69906 Level 3 Est. Patient 15:07:[address] [facility] CPT-81659 Level 4 Est. Patient 15:40:[address] [facility] CPT-16456 Level 4 Est. Patient 15:32:36 ONCOLOGY NURSE Elias Malagon [facility] CPT-86480 Level 5 Est. Patient 17:33:32 ONCOLOGY NURSE Elias Malagon [facility] CPT-53627 Level 5 Est. Patient 15:05:09 [facility] Level 4 Est. Patient 15:52:02 [facility]-201[facility] Level 4 Est. Patient 16:22:51 [facility]PT-13390 Level 4 Est. Patient 17:41:26 [facility]Y NURSE [facility]24 Level 3 Est. Patient 17:42:24 [facility]PT-33134 Level 3 Est. Patient 14:01:37 CDT [facility] CPT-77323 Level 3 Est. Patient 16:13:45 [facility]-43548 Level 4 Est. Patient 17:16:06 [facility]35779 Level 5 Est. Patient 16:08:43 CD[place] [facility] [place] Procedures Code Procedure Name Date Entry Date Standard Description CPT-92117 HGBA1C - LAB USE ONLY 16:12:38 ONCOLOGY NURSE CPT-19432 BMP - LAB USE ONLY 16:12:38 ONCOLOGY NURSE CPT-66450 Venipuncture Draw Fee 16:12:38 ONCOLOGY NURSE CPT-51163 HGBA1C - LAB USE ONLY 09:42:26 CDT CPT-25459 BMP - LAB USE ONLY 09:42:26 CDT CPT-74313 Venipuncture Draw Fee 09:42:26 CDT CPT-47270 Prevnar 13 16:55:53 ONCOLOGY NURSE CPT-06111 Immunization Single Admin 16:55:53 ONCOLOGY NURSE CPT-04365 Pneumovax 16:04:52 ONCOLOGY NURSE
--- OUTSIDE RECORDS SUMMARY | 2018-07-23 12:02 | XMS REPORT | Clinical Summary ---
Author Author Admin, E Organization [facility] Address Unknown Phone Unavailable Allergies, [...] TYPE I, UNCONTROLLED 250.03 Active Malgriffin Ziglari DISABILITY COORDINATOR Diabetes mellitus without mention of complication, type I [juvenile type], uncontrolled DIABETIC HYPOGLYCEMIA, TYPE I, UNCONTROLLED 250.83 Active 12/10 Malgriffin Ziglari DISABILITY COORDINATOR Diabetes mellitus with other specified manifestations, type I [juvenile type], uncontrolled Continuous insulin infusion pump V46.9 Active Elias Malagon DISABILITY COORDINATOR Unspecified machine and device dependence Medication List Medication Instructions Start Date Stop Date Generic Name NDC Status Provider Patient Instruction NOVOLOG 100 UNIT/ML SC SOLN 100-200u/day INSULIN ASPART 32262498611 Active [facility] Ziglari DISABILITY COORDINATOR Active HUMALOG 100 UNIT/ML SOLN 100-200u/day with insulin pump INSULIN LISPRO (HUMAN) 16450574616 No Longer Active [facility] Ziglari DISABILITY COORDINATOR Active COREG 12.5 MG ORAL TABS by mouth twice a day CARVEDILOL 23613373493 [facility] Active MS CONTIN 30 MG CR-TABS by mouth twice a day MORPHINE SULFATE 80581202441 No Longer [facility] Active [employer] BLUE STRP check blood sugars 6x/day GLUCOSE BLOOD 17872931892 Active [facility] Ziglari DISABILITY COORDINATOR Active LEVOTHYROXINE SODIUM 50 MCG ORAL TABS Take one by mouth daily LEVOTHYROXINE SODIUM 07227696691 [facility]ORDINATOR Active LEVOTHYROXINE SODIUM 25 MCG TABS Take one by mouth daily LEVOTHYROXINE SODIUM 61304959284 No Longer [facility]ORDIN[facility] Active GABAPENTIN 600 MG TABS by mouth twice a day GABAPENTIN 17685405637 No Longer [facility]ORD[facility] Active LATUDA 20 MG TABS Take one by mouth daily LURASIDONE HCL 02968448912 No Longer [facility]ORD[facility] Active RISPERDAL 2 MG ORAL TABS Take one by mouth daily RISPERIDONE 94649625578 [facility]ORDINATOR Active MOBIC 15 MG TABS Take one by mouth daily MELOXICAM 05287323489 No Longer Active [facility] Ziglari DISABILITY COORDINATOR Active LEXAPRO 20 MG TABS Take one by mouth daily ESCITALOPRAM OXALATE 07520551747 No Longer Active [facility] Ziglari DISABILITY COORDINATOR Active MS CONTIN 15 MG [id number] 1 tab by mouth every 12 hrs MORPHINE SULFATE 89998361589 No Longer Active [facility] Rogelioglari DISABILITY COORDINATOR Active GABAPENTIN 300 MG CAPS by mouth twice a day GABAPENTIN 24047620986 No Longer Active [facility] Rogelioglari DISABILITY COORDINATOR Active CYCLOBENZAPRINE HCL 10 MG TABS Take 1 tab every 6 hours PRN CYCLOBENZAPRINE HCL 82005935553 Active Lala Deras CAMPAIGN MANAGER Active AMBIEN 10 MG TABS take 1/2 tab daily at bedtime prn ZOLPIDEM TARTRATE 48224132939 Active [facility] Rogelioglari DISABILITY COORDINATOR Active KLOR-CON 10 10 MEQ CR-TABS Take one by mouth daily POTASSIUM CHLORIDE 49236114833 Active [facility] Rogelioglari DISABILITY COORDINATOR Active FUROSEMIDE 40 MG TABS Take one and 1/2 tabs by mouth daily FUROSEMIDE 99373489097 Active Andreavenkata Mercadoari DISABILITY COORDINATOR Active ULTRAM ER 200 MG [id number] Take one by mouth daily TRAMADOL HCL 92259161808 No Longer Active [facility] Rogelioglari DISABILITY COORDINATOR Active SYMBICORT 160-4.5 MCG/ACT AERO 2 puffs bid BUDESONIDE- FORMOTEROL FUMARATE 35827886997 Active [facility] Rogelioglari DISABILITY COORDINATOR Active PREVACID 30 MG CPDR Take one by mouth twice daily LANSOPRAZOLE 00027744921 [facility] DISABILITY COORDINATOR Active ZETIA 10 MG TABS Take one by mouth daily EZETIMIBE 86707333489 Active [facility] Rogelioglari DISABILITY COORDINATOR Active GLUCAGON EMERGENCY 1 MG KIT Inject for low blood sugar GLUCAGON (RDNA) 83548313722 Active [facility] Rogelioglari DISABILITY COORDINATOR Active ATORVASTATIN CALCIUM 80 MG TABS Take one by mouth daily ATORVASTATIN CALCIUM 30059613270 Active [facility] Rogelioglari DISABILITY COORDINATOR Active LIPITOR 40 MG TABS take at bedtime ATORVASTATIN CALCIUM 40330661220 No Longer [facility] DISABILITY COORDINATOR Active ASPIRIN 325 MG TABS Take one by mouth daily ASPIRIN 64009916474 Active Jasmyn Mary CAMPAIGN MANAGER Active NOVOLOG 100 UNIT/ML SOLN per pump INSULIN ASPART 69091611791 No Longer Active Jasmyn Mary CAMPAIGN MANAGER Active RANEXA 1000 MG [id number] 1 by mouth every 12 hrs RANOLAZINE 33327309112 Active Jasmyn Mary CAMPAIGN MANAGER Active REGLAN 10 MG TABS 1 tab by mouth after meals and at hs daily METOCLOPRAMIDE HCL 75000090553 Active Jasmyn Mary CAMPAIGN MANAGER Active KLOR-CON M20 20 MEQ CR-TABS Take one by mouth daily POTASSIUM CHLORIDE JEANINE CR 33215859933 Active Jasmyn Mary CAMPAIGN MANAGER Active WELLBUTRIN 100 MG TABS Take one by mouth 3 times daily, morning, afternoon and evening BUPROPION HCL 28459500705 Active Jasmyn Mary CAMPAIGN MANAGER Active CYMBALTA 60 MG CPEP 2 caps by mouth daily DULOXETINE HCL 09465566700 Active Jasmyn Mary JOSHUA Active RAMIPRIL 10 MG CAPS Take one by mouth daily RAMIPRIL 93163720778 Active Jasmyn Mary CAMPAIGN MANAGER Active PERCOCET 10-325 MG TABS one by mouth every 6 hrs as needed for pain OXYCODONE-ACETAMINOPHEN 87225017143 Active Jasmyn Mary CAMPAIGN MANAGER Active NITROSTAT 0.4 MG SUBL 1 tab under tongue every 5 min as need for cx pain. not to exceet total of 3 doses in 15 min NITROGLYCERIN 22702923975 Active Jasmyn Mary JOSHUA Active LIPITOR 40 MG TABS take at bedtime LIPITOR 40 MG TABS 701945 ATORVASTATIN CALCIUM Inactive ULTRAM ER 200 MG [id number] Take one by mouth daily ULTRAM ER 200 MG [id number] TRAMADOL HCL Inactive GABAPENTIN 300 MG CAPS by mouth twice a day GABAPENTIN 300 MG CAPS 227748 GABAPENTIN Inactive MS CONTIN 15 MG [id number] 1 tab by mouth every 12 hrs MS CONTIN 15 MG [id number] MORPHINE SULFATE Inactive LEXAPRO 20 MG TABS Take one by mouth daily LEXAPRO 20 MG TABS 486601 ESCITALOPRAM OXALATE Inactive MOBIC 15 MG TABS Take one by mouth daily MOBIC 15 MG TABS 076583 MELOXICAM Inactive LATUDA 20 MG TABS Take one by mouth daily LATUDA 20 MG TABS LURASIDONE HCL Inactive GABAPENTIN 600 MG TABS by mouth twice a day GABAPENTIN 600 MG TABS 582197 GABAPENTIN Inactive LEVOTHYROXINE SODIUM 25 MCG TABS Take one by mouth daily LEVOTHYROXINE SODIUM 25 MCG TABS 664455 LEVOTHYROXINE SODIUM Inactive MS CONTIN 30 MG CR-TABS by mouth twice a day MS CONTIN 30 MG CR-TABS MORPHINE SULFATE Inactive HUMALOG 100 UNIT/ML SOLN 100-200u/day with insulin pump HUMALOG 100 UNIT/ML SOLN INSULIN LISPRO (HUMAN) Inactive Advance Directives Directive Description Start Date [...] BP ramirez blood pressure, systolic - 8480-6 132 mm[Hg] BP sys height E&M - 8302-2 75.5 [in_us] Bdy height pulse rate E&M - 8867-4 84 /min Heart rate weight E&M - 3141-9 330 [lb_av] Weight Measured blood pressure, diastolic - [...] E&M - 3141-9 310 [lb_av] Weight Measured Diagnostic Results Date Name Value Unit Range Description Chart Maintenance: outside lab added to flowsheet - Chemistry blood glucose 162 mg/dL creatinine, serum 1.1 mg/dL thyroid stimulating hormone, serum 2.81 u[iU]/mL Lab Report: Basic Metabolic Panel - Chemistry sodium, serum 138 mmol/L 682-871 8994/11/30 potassium, serum 4.9 mmol/L 3.5-5.2 chloride, serum 102 mmol/L 98-107 carbon dioxide, venous blood 30.5 mmol/L 21.0-32.0 blood glucose 212 mg/dL 65-110 calcium, serum 9.0 mg/dL 8.5-10.1 urea nitrogen, blood 18 mg/dL 7-18 creatinine, serum 1.28 mg/dL 0.55-1.30 Lab Report: Basic Metabolic Panel, HGBA1C - Chemistry sodium, serum 138 mmol/L 391-266 8039/08/24 potassium, serum 4.6 mmol/L 3.5-5.2 chloride, serum 100 mmol/L 98-107 carbon dioxide, venous blood 31.8 mmol/L 21.0-32.0 blood glucose 267 mg/dL 65-110 calcium, serum 9.1 mg/dL 8.5-10.1 urea nitrogen, blood 15 mg/dL 7-18 creatinine, serum 1.24 mg/dL 0.55-1.30 hemoglobin A1C, blood, as % of total hemoglobin 8.1 % 4.3-6.0 Lab Report: HEMOGLOBIN A1c, MicroAlb Random w/creat/6517 - Urinalysis microalbumin/total urine volume 3 mg/L Units converted. See lab report for original value. microalbumin/creatinine ratio, urine 3 MCG/MG CREAT mg/L <30 Lab Report: HGBA1C - Chemistry hemoglobin A1C, [...] mg/dL Encounters Code Encounter Date Provider Facility CPT-01887 Level 4 Est. Patient 17:42:[address] [facility] CPT-74794 Level 4 Est. Patient 16:31:[address] [facility] CPT-78592 Level 3 Est. Patient 13:47:[address] [facility] CPT-04303 Level 4 Est. Patient 17:39:[address] [facility] CPT-47778 Level 3 Est. Patient 16:08:[address] [facility] CPT-14138 Level 4 Est. Patient 16:28:18 LBD TEACHER [facility] CPT-01359 Level 4 Est. Patient 18:06:10 CDT [facility] CPT-84842 Level 4 Est. Patient 15:14:20 CDT [facility] CPT-33440 Level 3 Est. Patient 14:44:29 CDT [facility] CPT-50994 Level 4 Est. Patient 15:15:35 LBD TEACHER [facility] CPT-02744 Level 3 Est. Patient 15:07:35 CDT Elias Malagon [facility] CPT-56845 Level 4 Est. Patient 15:40:05 CDT Elias Malagon [facility] CPT-61133 Level 4 Est. Patient 15:32:36 LBD TEACHER Elias Malagon [facility] CPT-13133 Level 5 Est. Patient 17:33:32 LBD TEACHER Elias Malagon [facility] CPT-17923 Level 5 Est. Patient 15:05:09 [facility] Level 4 Est. Patient 15:52:02 CDT [facility] Level 4 Est. Patient 16:22:51 CDT [facility] CPT-23885 Level 4 Est. Patient 17:41:26 LBD TEACHER [facility] CPT-45497 Level 3 Est. Patient 17:42:24 [facility] CPT-00507 Level 3 Est. Patient 14:01:37 CDT Evelyne Morales [facility] CPT-89943 Level 3 Est. Patient 16:13:45 [facility] CPT-45[facility] Level 4 Est. Patient 17:16:06 CD[facility] CPT-38255 Level 5 Est. Patient 16:08:43 CDT [facility] Procedures Code Procedure Name Date Entry Date Standard Description CPT-77687 HGBA1C - LAB USE ONLY 16:12:38 LBD TEACHER CPT-35441 BMP - LAB USE ONLY 16:12:38 LBD TEACHER CPT-37678 Venipuncture Draw Fee 16:12:38 LBD TEACHER CPT-56848 HGBA1C - LAB USE ONLY 09:42:26 CDT CPT-40936 BMP - LAB USE ONLY 09:42:26 CDT CPT-53684 Venipuncture Draw Fee 09:42:26 CDT CPT-06055 Prevnar 13 16:55:53 LBD TEACHER CPT-54914 Immunization Single Admin 16:55:53 LBD TEACHER CPT-93377 Pneumovax 16:04:52 LBD TEACHER
--- NOTE | 2018-07-23 12:03 | Discharge Inst-Post CATH ---
Discharge Inst-CATH/EP Post Cardiac Cath/EP D/C Inst Follow Up/Plan Hold metformin for [address] Linares's office in 4 weeks CARDIAC CATH DISCHARGE INSTRUCTIONS *Hold Metformin for 48 hours post heart cath. ACTIVITY * Go Home directly and rest. * Limit activity of the leg (or wrist if it was used) for 7 days including aerobics, swimming, jogging, bicycling, etc. * Restrict stair-climbing for 7 days if possible, if not, climb up with your non -cath leg, then bring together on the same step. * Avoid lifting, pushing, pulling or excessive movement of the affected extremity for 7 days. * Customary sexual activity may be resumed after 2 days-use caution not to use a position that strains or causes pain to the affected extremity. * No driving for 24 hours. * NO SMOKING. * Avoid straining for bowel movements for 7 days. * Gentle walking on level ground is allowed. * Returning to work will depend on the type of procedure and the results. Your doctor will discuss this with you. CALL YOUR DOCTOR FOR ANY OF THE FOLLOWING: *If bleeding from the puncture site occurs- Apply gentle pressure to site with clean cloth and call your doctor or EMS. * If a knot or lump forms under the skin, increases in size, or causes pain. * If bruising appears to be worsening or moving further down your leg instead of disappearing. * Temperature above 101 F. CARE OF YOUR GROIN INCISION; * Bruising or purple discoloration of the skin near the puncture site is common. * You may shower only, no bathtub bathing for 5 days. Be careful to avoid slipping as your leg may feel stiff. * If a closure device was used on your femoral artery, please see the attached guide regarding care of the device and your leg. * Leave the dressing on, until removed by office staff. CARE OF YOUR WRIST INCISION; * Bruising or purple discoloration of the skin near the puncture site is common. * You may shower. * DO NOT submerge wrist. * Leave dressing on, until removed by office staff.. JONI LINARES MD Jul 23, 2018 12:03
--- OUTSIDE RECORDS SUMMARY | 2018-07-23 12:03 | XMS REPORT | Clinical Summary ---
Author Author Admin, GARY Organization [facility] Address Unknown Phone Unavailable Allergies, Adverse Reactions, [...] TYPE I, UNCONTROLLED 250.03 Active Maliheh Ziglari SUPERVISOR SLEEPING BAG DEPARTMENT Diabetes mellitus without mention of complication, type I [juvenile type], uncontrolled DIABETIC HYPOGLYCEMIA, TYPE I, UNCONTROLLED 250.83 Active 12/10 Maliheh Ziglari SUPERVISOR SLEEPING BAG DEPARTMENT Diabetes mellitus with other specified manifestations, type I [juvenile type], uncontrolled Medication List Medication Instructions Start Date Stop Date Generic Name NDC Status Provider Patient Instruction RISPERDAL 1 MG TABS Take one and 1/2 by mouth daily RISPERIDONE 64222064032 Active Maliheh Ziglari SUPERVISOR SLEEPING BAG DEPARTMENT Active MOBIC 15 MG TABS Take one by mouth daily MELOXICAM 65452665903 No Longer Active [facility] Ziglari SUPERVISOR SLEEPING BAG DEPARTMENT Active LEXAPRO 20 MG TABS Take one by mouth daily ESCITALOPRAM OXALATE 97077071013 No Longer Active [facility] Rogelioglari SUPERVISOR SLEEPING BAG DEPARTMENT Active MS CONTIN 30 MG CR-TABS by mouth twice a day MORPHINE SULFATE 84192569302 Active [facility] Ziglari SUPERVISOR SLEEPING BAG DEPARTMENT Active MS CONTIN 15 MG [id number] 1 tab by mouth every 12 hrs MORPHINE SULFATE 97994561858 No Longer Active [facility] Rogelioglari SUPERVISOR SLEEPING BAG DEPARTMENT Active LATUDA 20 MG TABS Take one by mouth daily LURASIDONE HCL 54735138374 [facility] SU[facility]VIS[facility] SLEEPING BAG DEPARTMENT Active GABAPENTIN 600 MG TABS by mouth twice a day GABAPENTIN 01417976240 [facility] SUPERVISOR SLEEPING BAG DEPARTMENT Active GABAPENTIN 300 MG CAPS by mouth twice a day GABAPENTIN 94382122655 No Longer Active [facility] Rogelioglari SUPERVISOR SLEEPING BAG DEPARTMENT Active CYCLOBENZAPRINE HCL 10 MG TABS Take 1 tab every 6 hours PRN CYCLOBENZAPRINE HCL 68055922948 Active Lala Deras HEALTH AND WELLNESS DIRECTOR Active LEVOTHYROXINE SODIUM 25 MCG TABS Take one by mouth daily LEVOTHYROXINE SODIUM 64855146663 Active [facility] Rogelioglari SUPERVISOR SLEEPING BAG DEPARTMENT Active AMBIEN 10 MG TABS take 1/2 tab daily at bedtime prn ZOLPIDEM TARTRATE 57551816228 [facility] SUPERVISOR SLEEPING BAG DEPARTMENT Active KLOR-CON 10 10 MEQ CR-TABS Take one by mouth daily POTASSIUM CHLORIDE 29739403725 [facility] SUPERVISOR SLEEPING BAG DEPARTMENT Active FUROSEMIDE 40 MG TABS Take one and 1/2 tabs by mouth daily FUROSEMIDE 42128942953 [facility] SUPERVISOR SLEEPING BAG DEPARTMENT Active ULTRAM ER 200 MG [id number] Take one by mouth daily TRAMADOL HCL 00840306344 No Longer [facility] SUPERVISOR SLEEPING BAG DEPARTMENT Active SYMBICORT 160-4.5 MCG/ACT AERO 2 puffs bid BUDESONIDE- FORMOTEROL FUMARATE 22017490098 Active [facility] Rogelioglari SUPERVISOR SLEEPING BAG DEPARTMENT Active PREVACID 30 MG CPDR Take one by mouth twice daily LANSOPRAZOLE 00563496554 Active [facility] Rogelioglari SUPERVISOR SLEEPING BAG DEPARTMENT Active ZETIA 10 MG TABS Take one by mouth daily EZETIMIBE 65424695929 [facility] SUPERVISOR SLEEPING BAG DEPARTMENT Active GLUCAGON EMERGENCY 1 MG KIT Inject for low blood sugar GLUCAGON (RDNA) 11613872742 Active [facility] Rogelioglari SUPERVISOR SLEEPING BAG DEPARTMENT Active CARVEDILOL 25 MG TABS Take one by mouth twice daily CARVEDILOL 64414756205 Active [facility] Rogelioglari SUPERVISOR SLEEPING BAG DEPARTMENT Active ATORVASTATIN CALCIUM 80 MG TABS Take one by mouth daily ATORVASTATIN CALCIUM 72161819139 [facility] SUPERVISOR SLEEPING BAG DEPARTMENT Active LIPITOR 40 MG TABS take at bedtime ATORVASTATIN CALCIUM 87421316005 No Longer Active [facility] Rogelioglari SUPERVISOR SLEEPING BAG DEPARTMENT Active ASPIRIN 325 MG TABS Take one by mouth daily ASPIRIN 07601651540 Active Jasmyn Mary LPN Active NOVOLOG 100 UNIT/ML SOLN per pump INSULIN ASPART 90006882247 Active Jasmyn Mary LPN Active RANEXA 1000 MG [id number] 1 by mouth every 12 hrs RANOLAZINE 15077761342 Active Jasmyn Mary LPN Active REGLAN 10 MG TABS 1 tab by mouth after meals and at hs daily METOCLOPRAMIDE HCL 63212202251 Active Jasmyn Mary LPN Active KLOR-CON M20 20 MEQ CR-TABS Take one by mouth daily POTASSIUM CHLORIDE JEANINE CR 23695801173 Active Jasmyn Mary LPN Active WELLBUTRIN 100 MG TABS Take one by mouth 3 times daily, morning, afternoon and evening BUPROPION HCL 74044738372 Active Jasmyn Mary LPN Active CYMBALTA 60 MG CPEP 2 caps by mouth daily DULOXETINE HCL 43157049444 Active Jasmyn Mary LPN Active RAMIPRIL 10 MG CAPS Take one by mouth daily RAMIPRIL 75246522542 Active Jasmyn Mary LPN Active PERCOCET 10-325 MG TABS one by mouth every 6 hrs as needed for pain OXYCODONE-ACETAMINOPHEN 61939134894 Active Jasmyn Mary LPN Active NITROSTAT 0.4 MG SUBL 1 tab under tongue every 5 min as need for cx pain. not to exceet total of 3 doses in 15 min NITROGLYCERIN 43241007951 Active Jasmyn Mary LPN Active LIPITOR 40 MG TABS take at bedtime LIPITOR 40 MG TABS 903976 ATORVASTATIN CALCIUM Inactive ULTRAM ER 200 MG [id number] Take one by mouth daily ULTRAM ER 200 MG [id number] TRAMADOL HCL Inactive GABAPENTIN 300 MG CAPS by mouth twice a day GABAPENTIN 300 MG CAPS 332256 GABAPENTIN Inactive MS CONTIN 15 MG [id number] 1 tab by mouth every 12 hrs MS CONTIN 15 MG [id number] MORPHINE SULFATE Inactive LEXAPRO 20 MG TABS Take one by mouth daily LEXAPRO 20 MG TABS 922970 ESCITALOPRAM OXALATE Inactive MOBIC 15 MG TABS Take one by mouth daily MOBIC 15 MG TABS 805472 MELOXICAM Inactive Advance Directives Directive Description Start [...] Description Chart Maintenance: Outside labs entered on Cne[employer] - Chemistry sodium, serum 136 mmol/L potassium, [...] % Chart Maintenance: Outside labs entered on [employer] - Lab microalbumin, urine <1.2 Lab Report: Basic Metabolic Panel, HGBA1C - Chemistry sodium, serum 141 mmol/L 129-798 2833/04/20 potassium, serum 4.8 mmol/L 3.5-5.2 chloride, serum 101 mmol/L 98-107 carbon dioxide, venous blood 34.5 mmol/L 21.0-32.0 blood glucose 94 mg/dL 65-110 calcium, serum 9.0 mg/dL 8.5-10.1 urea nitrogen, blood 17 mg/dL 7-18 creatinine, serum 1.20 mg/dL 0.60-1.30 hemoglobin A1C, blood, as % of total hemoglobin 7.8 % 4.3-6.0 sodium, serum 140 mmol/L 772-003 1593/07/29 potassium, serum 4.6 mmol/L 3.5-5.2 chloride, serum [...] mg/dL Encounters Code Encounter Date Provider Facility CPT-31711 Level 4 Est. Patient 15:14:20 CDT Elias Malagon [facility] CPT-37878 Level 3 Est. [facility] 14:44:[facility] CPT-78745 Level 4 Est. Patient 15:15:35 OPERATIONS COORDINATOR [facility] Level 3 Est. Patient 15:07:35 [facility] Level 4 Est. Patient 15:40:05 CDT [facility] CPT-26828 Level 4 Est. Patient 15:32:36 OPERATIONS COORDINATOR [facility] CPT-30383 Level 5 Est. Patient 17:33:32 OPERATIONS COORDINATOR [facility] CPT-47204 Level 5 Est. Patient 15:05:09 CDT [facility] CPT-56175 Level 4 Est. Patient 15:52:02 [facility] Level 4 Est. Patient 16:22:51 CDT [facility] CPT-17134 Level 4 Est. Patient 17:41:26 OPERATIONS COORDINATOR [facility] CPT-99815 Level 3 Est. Patient 17:42:24 CDT [facility] CPT-36859 Level 3 Est. Patient 14:01:37 CDT Evelyne Morales [facility] CPT-72614 Level 3 Est. Patient 16:13:45 CDT Elias Malagon [facility] CPT-39200 Level 4 Est. Patient 17:16:06 CDT [facility] CPT-82314 Level 5 Est. Patient 16:08:43 CDT [facility]
--- OUTSIDE RECORDS SUMMARY | 2018-07-23 12:03 | XMS REPORT | Clinical Summary ---
Author Author Admin, GARY Organization 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.83 Active 12/10 Malgriffin Ziglari BONBON DIPPER Diabetes mellitus with other specified manifestations, type I [juvenile type], uncontrolled Continuous insulin infusion pump V46.9 Active Elias Malagon BONBON DIPPER Unspecified machine and device dependence Medication List Medication Instructions Start Date Stop Date Generic Name NDC Status Provider Patient Instruction COREG 12.5 MG ORAL TABS by mouth twice a day CARVEDILOL 66740096632 Active [facility] Ziglari BONBON DIPPER Active MS CONTIN 30 MG CR-TABS by mouth twice a day MORPHINE SULFATE 34022371156 No Longer Active Maleh Ziglari BONBON DIPPER Active ONETOUCH ULTRA BLUE STRP check blood sugars 6x/day GLUCOSE BLOOD 25946365596 [facility] Active LEVOTHYROXINE SODIUM 50 MCG ORAL TABS Take one by mouth daily LEVOTHYROXINE SODIUM 74208337563 Active [facility] Ziglari BONBON DIPPER Active LEVOTHYROXINE SODIUM 25 MCG TABS Take one by mouth daily LEVOTHYROXINE SODIUM 00446526655 No Longer Active [facility] Ziglari BONBON DIPPER Active GABAPENTIN 600 MG TABS by mouth twice a day GABAPENTIN 10450957132 No Longer Active [facility] Ziglari BONBON DIPPER Active LATUDA 20 MG TABS Take one by mouth daily LURASIDONE HCL 06154172759 No Longer Active [facility] Ziglari BONBON DIPPER Active RISPERDAL 2 MG ORAL TABS Take one by mouth daily RISPERIDONE 87930084764 Active [facility] Ziglari BONBON DIPPER Active HUMALOG 100 UNIT/ML SOLN 100-200u/day with insulin pump INSULIN LISPRO (HUMAN) 50531780419 Active [facility] Ziglari BONBON DIPPER Active MOBIC 15 MG TABS Take one by mouth daily MELOXICAM 18453861938 No Longer [facility]ONBON DIPPER Active LEXAPRO 20 MG TABS Take one by mouth daily ESCITALOPRAM OXALATE 74161154388 No Longer Active Maleh Ziglari BONBON DIPPER Active MS CONTIN 15 MG [id number] 1 tab by mouth every 12 hrs MORPHINE SULFATE 85831355561 No Longer Active Maleh Ziglari BONBON DIPPER Active GABAPENTIN 300 MG CAPS by mouth twice a day GABAPENTIN 56065806972 No Longer Active Maleh Ziglari BONBON DIPPER Active CYCLOBENZAPRINE HCL 10 MG TABS Take 1 tab every 6 hours PRN CYCLOBENZAPRINE HCL 43527429485 Active Lala Deras PRACTICING MD ANESTHESIOLOGIST Active AMBIEN 10 MG TABS take 1/2 tab daily at bedtime prn ZOLPIDEM TARTRATE 13566369069 Active [facility] BONBON DIPPER Active KLOR-CON 10 10 MEQ CR-TABS Take one by mouth daily POTASSIUM CHLORIDE 79215776995 Active [facility] Rogeliopaul [facility] BONBON DIPPER Active FUROSEMIDE 40 MG TABS Take one and 1/2 tabs by mouth daily FUROSEMIDE 47689367844 [facility] BONBON DIPPER Active ULTRAM ER 200 MG [id number] Take one by mouth daily TRAMADOL HCL 12574342933 No Longer Active [facility] BONBON DIPPER Active SYMBICORT 160-4.5 MCG/ACT AERO 2 puffs bid BUDESONIDE- FORMOTEROL FUMARATE 87283003568 Active [facility] PREVACID 30 MG CPDR Take one by mouth twice daily LANSOPRAZOLE 13406695915 Active [facility] Active ZETIA 10 MG TABS Take one by mouth daily EZETIMIBE 06823721958 Active [facility] Rogelioglari BONBON DIPPER Active GLUCAGON EMERGENCY 1 MG KIT Inject for low blood sugar GLUCAGON (RDNA) 62772730917 Active [facility] Rogelioglari BONBON DIPPER Active ATORVASTATIN CALCIUM 80 MG TABS Take one by mouth daily ATORVASTATIN CALCIUM 54935099487 Active [facility] Rogelioglari BONBON DIPPER Active LIPITOR 40 MG TABS take at bedtime ATORVASTATIN CALCIUM 26484351578 No Longer Active [facility] Rogelioglari BONBON DIPPER Active ASPIRIN 325 MG TABS Take one by mouth daily ASPIRIN 61699240066 Active Jasmyn Mary LPN Active NOVOLOG 100 UNIT/ML SOLN per pump INSULIN ASPART 95238983302 No Longer Active Jasmyn Mary LPN Active RANEXA 1000 MG [id number] 1 by mouth every 12 hrs RANOLAZINE 33407644552 Active Jasmyn Mary LPN Active REGLAN 10 MG TABS 1 tab by mouth after meals and at hs daily METOCLOPRAMIDE HCL 45005438432 Active Jasmyn Mary LPN Active KLOR-CON M20 20 MEQ CR-TABS Take one by mouth daily POTASSIUM CHLORIDE JEANINE CR 57245380142 Active Jasmyn Mary PRACTICING MD ANESTHESIOLOGIST Active WELLBUTRIN 100 MG TABS Take one by mouth 3 times daily, morning, afternoon and evening BUPROPION HCL 36629119592 Active Jasmyn Mary PRACTICING MD ANESTHESIOLOGIST Active CYMBALTA 60 MG CPEP 2 caps by mouth daily DULOXETINE HCL 88811376519 Active Jasmyn Mary PRACTICING MD ANESTHESIOLOGIST Active RAMIPRIL 10 MG CAPS Take one by mouth daily RAMIPRIL 16298671081 Active Jasmyn Mary PRACTICING MD ANESTHESIOLOGIST Active PERCOCET 10-325 MG TABS one by mouth every 6 hrs as needed for pain OXYCODONE-ACETAMINOPHEN 34321933172 Active Jasmyn Mary LPN Active NITROSTAT 0.4 MG SUBL 1 tab under tongue every 5 min as need for cx pain. not to exceet total of 3 doses in 15 min NITROGLYCERIN 85671055325 Active Jasmyn Mary LPN Active LIPITOR 40 MG TABS take at bedtime LIPITOR 40 MG TABS 464555 ATORVASTATIN CALCIUM Inactive ULTRAM ER 200 MG [id number] Take one by mouth daily ULTRAM ER 200 MG [id number] TRAMADOL HCL Inactive GABAPENTIN 300 MG CAPS by mouth twice a day GABAPENTIN 300 MG CAPS 726831 GABAPENTIN Inactive MS CONTIN 15 MG [id number] 1 tab by mouth every 12 hrs MS CONTIN 15 MG [id number] MORPHINE SULFATE Inactive LEXAPRO 20 MG TABS Take one by mouth daily LEXAPRO 20 MG TABS 748037 ESCITALOPRAM OXALATE Inactive MOBIC 15 MG TABS Take one by mouth daily MOBIC 15 MG TABS 388379 MELOXICAM Inactive LATUDA 20 MG TABS Take one by mouth daily LATUDA 20 MG TABS LURASIDONE HCL Inactive GABAPENTIN 600 MG TABS by mouth twice a day GABAPENTIN 600 MG TABS 726129 GABAPENTIN Inactive LEVOTHYROXINE SODIUM 25 MCG TABS Take one by mouth daily LEVOTHYROXINE SODIUM 25 MCG TABS 389953 LEVOTHYROXINE SODIUM Inactive MS CONTIN 30 MG [...] administered 7-16-13 pneumococcal polysaccharide vaccine, 23 valent pneumococcal immunization [...] HGBA1C - Chemistry sodium, serum 138 mmol/L 297-407 7453/02/09 potassium, serum 4.5 mmol/L 3.5-5.2 chloride, serum 100 mmol/L 98-107 carbon dioxide, venous blood 29.0 mmol/L 21.0-32.0 blood glucose 164 mg/dL 65-110 calcium, serum 8.8 mg/dL 8.5-10.1 urea nitrogen, blood 28 mg/dL 7-18 creatinine, serum 1.51 mg/dL 0.55-1.30 hemoglobin A1C, blood, as % of total hemoglobin 7.3 % 4.3-6.0 sodium, serum 138 mmol/L 994-963 2849/08/24 potassium, serum 4.6 mmol/L 3.5-5.2 chloride, serum 100 mmol/L 98-107 carbon dioxide, venous blood 31.8 mmol/L 21.0-32.0 blood glucose 267 mg/dL 65-110 calcium, serum 9.1 mg/dL 8.5-10.1 urea nitrogen, blood 15 mg/dL 7-18 creatinine, serum 1.24 mg/dL 0.55-1.30 hemoglobin A1C, blood, as % of total hemoglobin 8.1 % 4.3-6.0 Lab Report: Basic Metabolic Panel, MICROALBUMIN, HGBA1C - Chemistry sodium, serum 138 mmol/L 822-908 0741/11/04 potassium, serum 3.9 mmol/L 3.5-5.2 chloride, serum [...] mg/dL Encounters Code Encounter Date Provider Facility CPT-98636 Level 3 Est. Patient 13:47:02 CDT [facility] CPT-88107 Level 4 Est. Patient 17:39:08 CDT [facility] CPT-04672 Level 3 Est. Patient 16:08:05 COMPUTER NUMERICAL CONTROL GRINDER [facility] CPT-55608 Level 4 Est. Patient 16:28:18 COMPUTER NUMERICAL CONTROL GRINDER [facility] [place] Level 4 Est. Patient 18:06:10 [place] [facility] [place]864[place] Level 4 Est. Patient 15:14:20 [place] [facility] [place]-30[place] Level 3 Est. Patient 14:44:29 [place] [facility] [place]-97[place] Level 4 Est. Patient 15:15:35 COMPUTER NUMERICAL CONTROL GRINDER [facility] [place]PT-02967 Level 3 Est. Patient 15:07:35 CD[place] [facility] [place]PT-62561 Level 4 Est. Patient 15:40:05 CDT Elias Malagon [facility] CPT-69639 Level 4 Est. Patient 15:32:36 COMPUTER NUMERICAL CONTROL GRINDER Elias Malagon [facility] CPT-38763 Level 5 Est. Patient 17:33:32 COMPUTER NUMERICAL CONTROL GRINDER Andreavenkata Malagon [facility] CPT-02892 Level 5 Est. Patient 15:05:09 CDT Elias Malagon [facility] CPT-73712 Level 4 Est. Patient 15:52:02 [facility] Level 4 Est. Patient 16:22:51 CDT [facility]64 Level 4 Est. Patient 17:41:26 COMPUTER NUMERICAL CONTROL GRINDER [facility] [place]-91006 Level 3 Est. Patient 17:42:24 [facility] Level 3 Est. Patient 14:01:37 CDT Evelyne [facility] CPT-64741 Level 3 Est. Patient 16:13:45 CDT [facility]-50185 Level 4 Est. Patient 17:16:06 CD[facility] CPT-68941 Level 5 Est. Patient 16:08:43 CDT [facility] [place] Code Procedure Name Date Entry Date Standard Description CPT-05902 HGBA1C - LAB USE ONLY 09:42:26 CDT CPT-21519 BMP - LAB USE ONLY 09:42:26 CDT CPT-19416 Venipuncture Draw Fee 09:42:26 CDT CPT-37449 Prevnar 13 16:55:53 COMPUTER NUMERICAL CONTROL GRINDER CPT-58766 Immunization Single Admin 16:55:53 COMPUTER NUMERICAL CONTROL GRINDER CPT-39738 Pneumovax 16:04:52 COMPUTER NUMERICAL CONTROL GRINDER
--- OUTSIDE RECORDS SUMMARY | 2018-07-23 12:04 | XMS REPORT | Clinical Summary ---
Author Author Admin, FLAKITOE Organization [facility] Address Unknown Phone Unavailable Allergies, Adverse [...] TYPE I, UNCONTROLLED 250.03 Active Malgriffin Ziglari ABRASIVE GRINDER Diabetes mellitus without mention of complication, type I [juvenile type], uncontrolled DIABETIC HYPOGLYCEMIA, TYPE I, UNCONTROLLED 250.83 Active 12/10 Malgriffin Ziglari ABRASIVE GRINDER Diabetes mellitus with other specified manifestations, type I [juvenile type], uncontrolled Continuous insulin infusion pump V46.9 Active Elias Malagon ABRASIVE GRINDER Unspecified machine and device dependence Medication List Medication Instructions Start Date Stop Date Generic Name NDC Status Provider Patient Instruction RISPERDAL 2 MG ORAL TABS Take one by mouth daily RISPERIDONE 26423371093 Active [facility] Ziglari ABRASIVE GRINDER Active HUMALOG 100 UNIT/ML SOLN 100-200u/day with insulin pump INSULIN LISPRO (HUMAN) 83252510476 Active [facility] Ziglari ABRASIVE GRINDER Active MOBIC 15 MG TABS Take one by mouth daily MELOXICAM 13805873847 No Longer Active [facility] Ziglari ABRASIVE GRINDER Active LEXAPRO 20 MG TABS Take one by mouth daily ESCITALOPRAM OXALATE 54696214549 No Longer Active [facility] Rogelioglari ABRASIVE GRINDER Active MS CONTIN 30 MG CR-TABS by mouth twice a day MORPHINE SULFATE 78660648690 Active [facility] Ziglari ABRASIVE GRINDER Active MS CONTIN 15 MG [id number] 1 tab by mouth every 12 hrs MORPHINE SULFATE 40977242898 No Longer Active [facility] Rogelioglari ABRASIVE GRINDER Active LATUDA 20 MG TABS Take one by mouth daily LURASIDONE HCL 35750092583 [facility] Active GABAPENTIN 600 MG TABS by mouth twice a day GABAPENTIN 78998701272 Active [facility] Ziglari ABRASIVE GRINDER Active GABAPENTIN 300 MG CAPS by mouth twice a day GABAPENTIN 72203359325 No Longer Active [facility] Ziglari ABRASIVE GRINDER Active CYCLOBENZAPRINE HCL 10 MG TABS Take 1 tab every 6 hours PRN CYCLOBENZAPRINE HCL 90154593027 Active Lala Deras UTILITY FORESTER Active LEVOTHYROXINE SODIUM 25 MCG TABS Take one by mouth daily LEVOTHYROXINE SODIUM 43349543271 [facility] GRIND[facility] Active AMBIEN 10 MG TABS take 1/2 tab daily at bedtime prn ZOLPIDEM TARTRATE 07278147346 [facility] A[facility]ASIVE GRINDER Active KLOR-CON 10 10 MEQ CR-TABS Take one by mouth daily POTASSIUM CHLORIDE 84172073137 Active [facility] Ziglari ABRASIVE GRINDER Active FUROSEMIDE 40 MG TABS Take one and 1/2 tabs by mouth daily FUROSEMIDE 31576757949 Active [facility] Active ULTRAM ER 200 MG [id number] Take one by mouth daily TRAMADOL HCL 45326022186 No Longer Active [facility] ABRASIVE GRINDER Active SYMBICORT 160-4.5 MCG/ACT AERO 2 puffs bid BUDESONIDE- FORMOTEROL FUMARATE 69769439193 Active [facility] ABRASIVE GRINDER Active PREVACID 30 MG CPDR Take one by mouth twice daily LANSOPRAZOLE 65695640180 Active [facility] ABRASIVE GRINDER Active ZETIA 10 MG TABS Take one by mouth daily EZETIMIBE 54413485832 Active [facility] Rogelioglari ABRASIVE GRINDER Active GLUCAGON EMERGENCY 1 MG KIT Inject for low blood sugar GLUCAGON (RDNA) 85929144651 Active [facility] Rogelioglari ABRASIVE GRINDER Active CARVEDILOL 25 MG TABS Take one by mouth twice daily CARVEDILOL 29080554262 Active [facility] Rogelioari ABRASIVE GRINDER Active ATORVASTATIN CALCIUM 80 MG TABS Take one by mouth daily ATORVASTATIN CALCIUM 18728900543 Active [facility] Rogelioari ABRASIVE GRINDER Active LIPITOR 40 MG TABS take at bedtime ATORVASTATIN CALCIUM 80251827974 No Longer Active [facility] Rogelioglari ABRASIVE GRINDER Active ASPIRIN 325 MG TABS Take one by mouth daily ASPIRIN 28274477928 Active Jasmyn Mary LPN Active NOVOLOG 100 UNIT/ML SOLN per pump INSULIN ASPART 21687860432 No Longer Active Jasmyn Mary LPN Active RANEXA 1000 MG [id number] 1 by mouth every 12 hrs RANOLAZINE 97255596493 Active Jasmyn Mary LPN Active REGLAN 10 MG TABS 1 tab by mouth after meals and at hs daily METOCLOPRAMIDE HCL 84565701176 Active aJsmyn Mary LPN Active KLOR-CON M20 20 MEQ CR-TABS Take one by mouth daily POTASSIUM CHLORIDE JEANINE CR 72057645707 Active Jasmyn Mary LPN Active WELLBUTRIN 100 MG TABS Take one by mouth 3 times daily, morning, afternoon and evening BUPROPION HCL 18620196760 Active Jasmyn Mary LPN Active CYMBALTA 60 MG CPEP 2 caps by mouth daily DULOXETINE HCL 06171726179 Active Jasmyn Mary LPN Active RAMIPRIL 10 MG CAPS Take one by mouth daily RAMIPRIL 57844471271 Active Jasmyn Mary LPN Active PERCOCET 10-325 MG TABS one by mouth every 6 hrs as needed for pain OXYCODONE-ACETAMINOPHEN 85298663439 Active Jasmyn Mary LPN Active NITROSTAT 0.4 MG SUBL 1 tab under tongue every 5 min as need for cx pain. not to exceet total of 3 doses in 15 min NITROGLYCERIN 55589998543 Active Jasmyn Mary LPN Active LIPITOR 40 MG TABS take at bedtime LIPITOR 40 MG TABS 665754 ATORVASTATIN CALCIUM Inactive ULTRAM ER 200 MG [id number] Take one by mouth daily ULTRAM ER 200 MG [id number] TRAMADOL HCL Inactive GABAPENTIN 300 MG CAPS by mouth twice a day GABAPENTIN 300 MG CAPS 532776 GABAPENTIN Inactive MS CONTIN 15 MG [id number] 1 tab by mouth every 12 hrs MS CONTIN 15 MG [id number] MORPHINE SULFATE Inactive LEXAPRO 20 MG TABS Take one by mouth daily LEXAPRO 20 MG TABS 564932 ESCITALOPRAM OXALATE Inactive MOBIC 15 MG TABS Take one by mouth daily MOBIC 15 MG TABS 292040 MELOXICAM Inactive Advance Directives Directive Description Start Date PERMISSION TO SHARE Immunizations Vaccine Administration Date Value Standard Description influenza immunization (Flu Vax) has been administered 04/26/2015 influenza virus vaccine, unspecified formulation influenza immunization (Flu Vax) has been administered 03/31/2014 influenza virus vaccine, unspecified formulation influenza immunization (Flu Vax) has been administered 05/01/2013 influenza virus vaccine, unspecified formulation pneumococcal immunization administered -16- pneumococcal polysaccharide vaccine, 23 valent pneumococcal immunization [...] E&M - [id number] [id number] [lb_av] Weight Measured Diagnostic Results Date Name Value Unit Range Description Lab Report: Basic Metabolic Panel, HGBA1C - Chemistry sodium, serum 141 mmol/L 535-981 7136/04/20 potassium, serum 4.8 mmol/L 3.5-5.2 chloride, serum 101 mmol/L 98-107 carbon dioxide, venous blood 34.5 mmol/L 21.0-32.0 blood glucose 94 mg/dL 65-110 calcium, serum 9.0 mg/dL 8.5-10.1 urea nitrogen, blood 17 mg/dL 7-18 creatinine, serum 1.20 mg/dL 0.60-1.30 hemoglobin A1C, blood, as % of total hemoglobin 7.8 % 4.3-6.0 sodium, serum 140 mmol/L 218-870 8278/07/29 potassium, serum 4.6 mmol/L 3.5-5.2 chloride, serum 102 mmol/L 98-107 carbon dioxide, venous blood 33.3 mmol/L 21.0-32.0 blood glucose 177 mg/dL 65-110 calcium, serum 8.7 mg/dL 8.5-10.1 urea nitrogen, blood 19 mg/dL 7-18 creatinine, serum 1.20 mg/dL 0.60-1.30 hemoglobin A1C, blood, as % of total hemoglobin 7.6 % 4.3-6.0 sodium, serum 138 mmol/L 686-850 6773/02/09 potassium, serum 4.5 mmol/L 3.5-5.2 chloride, serum 100 mmol/L 98-107 carbon dioxide, venous blood 29.0 mmol/L 21.0-32.0 blood glucose 164 mg/dL 65-110 calcium, serum 8.8 mg/dL 8.5-10.1 urea nitrogen, blood 28 mg/dL 7-18 creatinine, serum 1.51 mg/dL 0.55-1.30 hemoglobin A1C, blood, as % of total hemoglobin 7.3 % 4.3-6.0 Lab Report: Basic Metabolic Panel, MICROALBUMIN, HGBA1C - Chemistry sodium, serum 138 mmol/L 791-956 4922/11/04 potassium, serum 3.9 mmol/L 3.5-5.2 chloride, serum [...] mg/dL Encounters Code Encounter Date Provider Facility CPT-68104 Level 3 Est. Patient 16:08:05 AUTOMATIC DRY STARCH OPERATOR Elias Malagon [facility] CPT-94239 Level 4 Est. Patient 16:28:18 AUTOMATIC DRY STARCH OPERATOR Elias Ricciari [facility] CPT-80716 Level 4 Est. [facility]:06:[facility] CPT-70699 Level 4 Est. Patient 15:14:20 CDT Andreavenkata Ricciari [facility] CPT-67694 Level 3 Est. Patient 14:44:29 CDT Elias Ricciari [facility] CPT-65415 Level 4 Est. Patient 15:15:35 AUTOMATIC DRY STARCH OPERATOR Andreavenkata Ricciari [facility] CPT-21480 Level 3 Est. Patient 15:07:35 [facility] CPT-38619 Level 4 Est. Patient 15:40:05 CDT [facility] Keiryari [facility] CPT-92217 Level 4 Est. Patient 15:32:36 AUTOMATIC DRY STARCH OPERATOR [facility] Level 5 Est. Patient 17:33:32 AUTOMATIC DRY STARCH OPERATOR Elias Ricciari [facility] CPT-84853 Level 5 Est. Patient 15:05:09 [facility] CPT-39048 Level 4 Est. Patient 15:52:02 CDT Elias Ricciari [facility] CPT-28524 Level 4 Est. Patient 16:22:51 CDT Elias Ricciari [facility] CPT-67018 Level 4 Est. Patient 17:41:26 AUTOMATIC DRY STARCH OPERATOR [facility] CPT-69028 Level 3 Est. Patient 17:42:24 CDT [facility] Rogelioari [facility] CPT-79172 Level 3 Est. Patient 14:01:37 CDT Evelyne Morales [facility] CPT-32848 Level 3 Est. Patient 16:13:45 CDT Elias Malagon [facility] CPT-24438 Level 4 Est. Patient 17:16:06 CDT [facility] CPT-10142 Level 5 Est. Patient 16:08:43 CDT [facility] Procedures Code Procedure Name Date Entry Date Standard Description CPT-27230 Prevnar 13 16:55:53 AUTOMATIC DRY STARCH OPERATOR CPT-80509 Immunization Single Admin 16:55:53 AUTOMATIC DRY STARCH OPERATOR CPT-55627 Pneumovax 16:04:52 AUTOMATIC DRY STARCH OPERATOR
--- OUTSIDE RECORDS SUMMARY | 2018-07-23 12:04 | XMS REPORT | Clinical Summary ---
Author Author Admin, GARY Organization 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.83 Active 12/10 Malgriffin Ziglari FOOD MIXER ASSEMBLER Diabetes mellitus with other specified manifestations, type I [juvenile type], uncontrolled Continuous insulin infusion pump V46.9 Active Elias Malagon FOOD MIXER ASSEMBLER Unspecified machine and device dependence Medication List Medication Instructions Start Date Stop Date Generic Name NDC Status Provider Patient Instruction COREG 12.5 MG ORAL TABS by mouth twice a day CARVEDILOL 26443506064 Active [facility] Ziglari FOOD MIXER ASSEMBLER Active MS CONTIN 30 MG CR-TABS by mouth twice a day MORPHINE SULFATE 10858860193 No Longer Active Maleh Ziglari FOOD MIXER ASSEMBLER Active ONETOUCH ULTRA BLUE STRP check blood sugars 6x/day GLUCOSE BLOOD 07651923710 [facility] FOOD MIXER ASSEMBLER Active LEVOTHYROXINE SODIUM 50 MCG ORAL TABS Take one by mouth daily LEVOTHYROXINE SODIUM 99231070941 Active [facility] Ziglari FOOD MIXER ASSEMBLER Active LEVOTHYROXINE SODIUM 25 MCG TABS Take one by mouth daily LEVOTHYROXINE SODIUM 71949514096 No Longer Active [facility] Ziglari FOOD MIXER ASSEMBLER Active GABAPENTIN 600 MG TABS by mouth twice a day GABAPENTIN 49540119762 No Longer Active [facility] Ziglari FOOD MIXER ASSEMBLER Active LATUDA 20 MG TABS Take one by mouth daily LURASIDONE HCL 46898198752 No Longer Active [facility] Ziglari FOOD MIXER ASSEMBLER Active RISPERDAL 2 MG ORAL TABS Take one by mouth daily RISPERIDONE 66820608116 Active [facility] Ziglari FOOD MIXER ASSEMBLER Active HUMALOG 100 UNIT/ML SOLN 100-200u/day with insulin pump INSULIN LISPRO (HUMAN) 98155027361 Active [facility] Ziglari FOOD MIXER ASSEMBLER Active MOBIC 15 MG TABS Take one by mouth daily MELOXICAM 77874290090 No Longer [facility] FOOD MIXER ASSEMBLER Active LEXAPRO 20 MG TABS Take one by mouth daily ESCITALOPRAM OXALATE 76755176345 No Longer Active Maleh Ziglari FOOD MIXER ASSEMBLER Active MS CONTIN 15 MG [id number] 1 tab by mouth every 12 hrs MORPHINE SULFATE 12972434430 No Longer Active Maleh Ziglari FOOD MIXER ASSEMBLER Active GABAPENTIN 300 MG CAPS by mouth twice a day GABAPENTIN 84453199108 No Longer Active Maleh Ziglari FOOD MIXER ASSEMBLER Active CYCLOBENZAPRINE HCL 10 MG TABS Take 1 tab every 6 hours PRN CYCLOBENZAPRINE HCL 71813751360 Active Lala Deras GERIATRIC CARE MANAGER Active AMBIEN 10 MG TABS take 1/2 tab daily at bedtime prn ZOLPIDEM TARTRATE 36474002500 Active [facility]ata [facility] FOOD MIXER ASSEMBLER Active KLOR-CON 10 10 MEQ CR-TABS Take one by mouth daily POTASSIUM CHLORIDE 53179455504 Active [facility] FOOD MIXER ASSEMBLER Active FUROSEMIDE 40 MG TABS Take one and 1/2 tabs by mouth daily FUROSEMIDE 55161205088 [facility] FOOD MIXER ASSEMBLER Active ULTRAM ER 200 MG [id number] Take one by mouth daily TRAMADOL HCL 85373122944 No Longer Active [facility] Mercadoglari FOOD MIXER ASSEMBLER Active SYMBICORT 160-4.5 MCG/ACT AERO 2 puffs bid BUDESONIDE- FORMOTEROL FUMARATE 24605117590 Active [facility] Active PREVACID 30 MG CPDR Take one by mouth twice daily LANSOPRAZOLE 07272723701 Active [facility] Active ZETIA 10 MG TABS Take one by mouth daily EZETIMIBE 95435179998 Active [facility] Rogelioglari FOOD MIXER ASSEMBLER Active GLUCAGON EMERGENCY 1 MG KIT Inject for low blood sugar GLUCAGON (RDNA) 06113335904 Active [facility] Rogelioglari FOOD MIXER ASSEMBLER Active ATORVASTATIN CALCIUM 80 MG TABS Take one by mouth daily ATORVASTATIN CALCIUM 25198775117 Active [facility] Rogelioglari FOOD MIXER ASSEMBLER Active LIPITOR 40 MG TABS take at bedtime ATORVASTATIN CALCIUM 84160072263 No Longer Active [facility] Rogelioglari FOOD MIXER ASSEMBLER Active ASPIRIN 325 MG TABS Take one by mouth daily ASPIRIN 24545508567 Active Jasmyn Mary LPN Active NOVOLOG 100 UNIT/ML SOLN per pump INSULIN ASPART 39159695603 No Longer Active Jasmyn Mary LPN Active RANEXA 1000 MG [id number] 1 by mouth every 12 hrs RANOLAZINE 78921466680 Active Jasmyn Mary LPN Active REGLAN 10 MG TABS 1 tab by mouth after meals and at hs daily METOCLOPRAMIDE HCL 01361516700 Active Jasmyn Mary LPN Active KLOR-CON M20 20 MEQ CR-TABS Take one by mouth daily POTASSIUM CHLORIDE JEANINE CR 02036575678 Active Jasmyn Mary GERIATRIC CARE MANAGER Active WELLBUTRIN 100 MG TABS Take one by mouth 3 times daily, morning, afternoon and evening BUPROPION HCL 89279184746 Active Jasmyn Mary GERIATRIC CARE MANAGER Active CYMBALTA 60 MG CPEP 2 caps by mouth daily DULOXETINE HCL 07529001716 Active Jasmyn Mary GERIATRIC CARE MANAGER Active RAMIPRIL 10 MG CAPS Take one by mouth daily RAMIPRIL 69338873653 Active Jasmyn Mary GERIATRIC CARE MANAGER Active PERCOCET 10-325 MG TABS one by mouth every 6 hrs as needed for pain OXYCODONE-ACETAMINOPHEN 29324280826 Active Jasmyn Mary LPN Active NITROSTAT 0.4 MG SUBL 1 tab under tongue every 5 min as need for cx pain. not to exceet total of 3 doses in 15 min NITROGLYCERIN 89416756984 Active Jasmyn Mary LPN Active LIPITOR 40 MG TABS take at bedtime LIPITOR 40 MG TABS 857324 ATORVASTATIN CALCIUM Inactive ULTRAM ER 200 MG [id number] Take one by mouth daily ULTRAM ER 200 MG [id number] TRAMADOL HCL Inactive GABAPENTIN 300 MG CAPS by mouth twice a day GABAPENTIN 300 MG CAPS 374189 GABAPENTIN Inactive MS CONTIN 15 MG [id number] 1 tab by mouth every 12 hrs MS CONTIN 15 MG [id number] MORPHINE SULFATE Inactive LEXAPRO 20 MG TABS Take one by mouth daily LEXAPRO 20 MG TABS 567407 ESCITALOPRAM OXALATE Inactive MOBIC 15 MG TABS Take one by mouth daily MOBIC 15 MG TABS 696881 MELOXICAM Inactive LATUDA 20 MG TABS Take one by mouth daily LATUDA 20 MG TABS LURASIDONE HCL Inactive GABAPENTIN 600 MG TABS by mouth twice a day GABAPENTIN 600 MG TABS 326253 GABAPENTIN Inactive LEVOTHYROXINE SODIUM 25 MCG TABS Take one by mouth daily LEVOTHYROXINE SODIUM 25 MCG TABS 338404 LEVOTHYROXINE SODIUM Inactive MS CONTIN 30 MG [...] HGBA1C - Chemistry sodium, serum 138 mmol/L 107-734 2813/02/09 potassium, serum 4.5 mmol/L 3.5-5.2 chloride, serum 100 mmol/L 98-107 carbon dioxide, venous blood 29.0 mmol/L 21.0-32.0 blood glucose 164 mg/dL 65-110 calcium, serum 8.8 mg/dL 8.5-10.1 urea nitrogen, blood 28 mg/dL 7-18 creatinine, serum 1.51 mg/dL 0.55-1.30 hemoglobin A1C, blood, as % of total hemoglobin 7.3 % 4.3-6.0 sodium, serum 138 mmol/L 371-701 6513/08/24 potassium, serum 4.6 mmol/L 3.5-5.2 chloride, serum 100 mmol/L 98-107 carbon dioxide, venous blood 31.8 mmol/L 21.0-32.0 blood glucose 267 mg/dL 65-110 calcium, serum 9.1 mg/dL 8.5-10.1 urea nitrogen, blood 15 mg/dL 7-18 creatinine, serum 1.24 mg/dL 0.55-1.30 hemoglobin A1C, blood, as % of total hemoglobin 8.1 % 4.3-6.0 Lab Report: Basic Metabolic Panel, MICROALBUMIN, HGBA1C - Chemistry sodium, serum 138 mmol/L 986-564 9516/11/04 potassium, serum 3.9 mmol/L 3.5-5.2 chloride, serum [...] mg/dL Encounters Code Encounter Date Provider Facility CPT-38432 Level 3 Est. Patient 13:47:02 CDT [facility] CPT-29344 Level 4 Est. Patient 17:39:08 CDT [facility] CPT-83705 Level 3 Est. Patient 16:08:05 GAME OPERATOR [facility] CPT-41552 Level 4 Est. Patient 16:28:18 GAME OPERATOR [facility] CPT-32627 Level 4 Est. Patient 18:06:10 CDT [facility] CPT-69079 Level 4 Est. Patient 15:14:20 CDT [facility] CPT-70763 Level 3 Est. Patient 14:44:29 CDT [facility] CPT-47727 Level 4 Est. Patient 15:15:35 GAME OPERATOR [facility] CPT-61903 Level 3 Est. Patient 15:07:35 CDT [facility] CPT-84878 Level 4 Est. Patient 15:40:05 CDT Elias Malagon [facility] CPT-10117 Level 4 Est. Patient 15:32:36 GAME OPERATOR Elias Malagon [facility] CPT-61824 Level 5 Est. Patient 17:33:32 GAME OPERATOR Andreavenkata Malagon [facility] CPT-59304 Level 5 Est. Patient 15:05:09 CDT Elias Malagon [facility] CPT-58929 Level 4 Est. Patient 15:52:02 [facility]T [facility] CPT-54827 Level 4 Est. Patient 16:22:51 CDT [facility] Level 4 Est. Patient 17:41:26 GAME OPERATOR [facility] CPT-50807 Level 3 Est. Patient 17:42:24 CDT [facility] CPT-05633 Level 3 Est. Patient 14:01:37 CDT [facility] CPT-91400 Level 3 Est. Patient 16:13:45 [facility]T [facility] Level 4 Est. Patient 17:16:06 CD[facility] CPT-75278 Level 5 Est. Patient 16:08:43 CDT [facility] Procedures Code Procedure Name Date Entry Date Standard Description CPT-45369 HGBA1C - LAB USE ONLY 09:42:26 CDT CPT-36510 BMP - LAB USE ONLY 09:42:26 CDT CPT-16366 Venipuncture Draw Fee 09:42:26 CDT CPT-82139 Prevnar 13 16:55:53 GAME OPERATOR CPT-66772 Immunization Single Admin 16:55:53 GAME OPERATOR CPT-78475 Pneumovax 16:04:52 GAME OPERATOR
--- OUTSIDE RECORDS SUMMARY | 2018-07-23 12:05 | XMS REPORT | Clinical Summary ---
Author Author Admin, E Organization [facility] Address Unknown Phone Unavailable Allergies, Adverse [...] TYPE I, UNCONTROLLED 250.03 Active Malgriffin Ziglari PAN DEVULCANIZER HELPER Diabetes mellitus without mention of complication, type I [juvenile type], uncontrolled DIABETIC HYPOGLYCEMIA, TYPE I, UNCONTROLLED 250.83 Active 12/10 Malgriffin Ziglari PAN DEVULCANIZER HELPER Diabetes mellitus with other specified manifestations, type I [juvenile type], uncontrolled Continuous insulin infusion pump V46.9 Active Elias Malagon PAN DEVULCANIZER HELPER Unspecified machine and device dependence Medication List Medication Instructions Start Date Stop Date Generic Name NDC Status Provider Patient Instruction NOVOLOG 100 UNIT/ML SC SOLN 100-200u/day INSULIN ASPART 99979623247 Active [facility] Ziglari PAN DEVULCANIZER HELPER Active HUMALOG 100 UNIT/ML SOLN 100-200u/day with insulin pump INSULIN LISPRO (HUMAN) 89837162005 No Longer Active [facility] Ziglari PAN DEVULCANIZER HELPER Active COREG 12.5 MG ORAL TABS by mouth twice a day CARVEDILOL 43638523911 [facility] PAN DEVULCANIZER HELPER Active MS CONTIN 30 MG CR-TABS by mouth twice a day MORPHINE SULFATE 71412475270 No Longer [facility] PAN DEVULCANIZER HELPER Active [employer] BLUE STRP check blood sugars 6x/day GLUCOSE BLOOD 57621052087 Active [facility] Ziglari PAN DEVULCANIZER HELPER Active LEVOTHYROXINE SODIUM 50 MCG ORAL TABS Take one by mouth daily LEVOTHYROXINE SODIUM 08985607996 [facility] PAN DEVULCANIZER HELPER Active LEVOTHYROXINE SODIUM 25 MCG TABS Take one by mouth daily LEVOTHYROXINE SODIUM 69814607091 No Longer [facility] PAN DEVULCANIZER HELPER Active GABAPENTIN 600 MG TABS by mouth twice a day GABAPENTIN 99185812310 No Longer [facility] PAN DEVULCANIZER HELPER Active LATUDA 20 MG TABS Take one by mouth daily LURASIDONE HCL 45256188613 No Longer [facility] PAN DEVULCANIZER HELPER Active RISPERDAL 2 MG ORAL TABS Take one by mouth daily RISPERIDONE 01747071897 [facility] PAN DEVULCANIZER HELPER Active MOBIC 15 MG TABS Take one by mouth daily MELOXICAM 01953141439 No Longer Active [facility] Ziglari PAN DEVULCANIZER HELPER Active LEXAPRO 20 MG TABS Take one by mouth daily ESCITALOPRAM OXALATE 66087265326 No Longer Active [facility] Ziglari PAN DEVULCANIZER HELPER Active MS CONTIN 15 MG [id number] 1 tab by mouth every 12 hrs MORPHINE SULFATE 80080597931 No Longer Active [facility] Rogelioglari PAN DEVULCANIZER HELPER Active GABAPENTIN 300 MG CAPS by mouth twice a day GABAPENTIN 20202478175 No Longer Active [facility] Rogelioglari PAN DEVULCANIZER HELPER Active CYCLOBENZAPRINE HCL 10 MG TABS Take 1 tab every 6 hours PRN CYCLOBENZAPRINE HCL 54298564065 Active Lala Deras CONDITIONING MACHINE OPERATOR Active AMBIEN 10 MG TABS take 1/2 tab daily at bedtime prn ZOLPIDEM TARTRATE 35243659793 Active [facility] Rogelioglari PAN DEVULCANIZER HELPER Active KLOR-CON 10 10 MEQ CR-TABS Take one by mouth daily POTASSIUM CHLORIDE 57973376414 Active [facility] Rogelioglari PAN DEVULCANIZER HELPER Active FUROSEMIDE 40 MG TABS Take one and 1/2 tabs by mouth daily FUROSEMIDE 91986731181 Active Andreavenkata Mercadoari PAN DEVULCANIZER HELPER Active ULTRAM ER 200 MG [id number] Take one by mouth daily TRAMADOL HCL 17392056223 No Longer Active [facility] Rogelioglari PAN DEVULCANIZER HELPER Active SYMBICORT 160-4.5 MCG/ACT AERO 2 puffs bid BUDESONIDE- FORMOTEROL FUMARATE 22103139056 Active [facility] Rogelioglari PAN DEVULCANIZER HELPER Active PREVACID 30 MG CPDR Take one by mouth twice daily LANSOPRAZOLE 42830282142 [facility] PAN DEVULCANIZER HELPER Active ZETIA 10 MG TABS Take one by mouth daily EZETIMIBE 05485218739 Active [facility] Rogelioglari PAN DEVULCANIZER HELPER Active GLUCAGON EMERGENCY 1 MG KIT Inject for low blood sugar GLUCAGON (RDNA) 80094111297 Active [facility] Rogelioglari PAN DEVULCANIZER HELPER Active ATORVASTATIN CALCIUM 80 MG TABS Take one by mouth daily ATORVASTATIN CALCIUM 13257712988 Active [facility] Rogelioglari PAN DEVULCANIZER HELPER Active LIPITOR 40 MG TABS take at bedtime ATORVASTATIN CALCIUM 00265496223 No Longer [facility] PAN DEVULCANIZER HELPER Active ASPIRIN 325 MG TABS Take one by mouth daily ASPIRIN 00275384979 Active Jasmyn Mary CONDITIONING MACHINE OPERATOR Active NOVOLOG 100 UNIT/ML SOLN per pump INSULIN ASPART 08496205991 No Longer Active Jasmyn Mary CONDITIONING MACHINE OPERATOR Active RANEXA 1000 MG [id number] 1 by mouth every 12 hrs RANOLAZINE 30145707166 Active Jasmyn Mary CONDITIONING MACHINE OPERATOR Active REGLAN 10 MG TABS 1 tab by mouth after meals and at hs daily METOCLOPRAMIDE HCL 57939777954 Active Jasmyn Mary CONDITIONING MACHINE OPERATOR Active KLOR-CON M20 20 MEQ CR-TABS Take one by mouth daily POTASSIUM CHLORIDE JEANINE CR 11479296389 Active Jasmyn Mary CONDITIONING MACHINE OPERATOR Active WELLBUTRIN 100 MG TABS Take one by mouth 3 times daily, morning, afternoon and evening BUPROPION HCL 34350381025 Active Jasmyn Mary CONDITIONING MACHINE OPERATOR Active CYMBALTA 60 MG CPEP 2 caps by mouth daily DULOXETINE HCL 12396930721 Active Jasmyn Mary JOSHUA Active RAMIPRIL 10 MG CAPS Take one by mouth daily RAMIPRIL 94031864436 Active Jasmyn Mary CONDITIONING MACHINE OPERATOR Active PERCOCET 10-325 MG TABS one by mouth every 6 hrs as needed for pain OXYCODONE-ACETAMINOPHEN 69924286063 Active Jasmyn Mary CONDITIONING MACHINE OPERATOR Active NITROSTAT 0.4 MG SUBL 1 tab under tongue every 5 min as need for cx pain. not to exceet total of 3 doses in 15 min NITROGLYCERIN 54039714319 Active Jasmyn Mary JOSHUA Active LIPITOR 40 MG TABS take at bedtime LIPITOR 40 MG TABS 909245 ATORVASTATIN CALCIUM Inactive ULTRAM ER 200 MG [id number] Take one by mouth daily ULTRAM ER 200 MG [id number] TRAMADOL HCL Inactive GABAPENTIN 300 MG CAPS by mouth twice a day GABAPENTIN 300 MG CAPS 021635 GABAPENTIN Inactive MS CONTIN 15 MG [id number] 1 tab by mouth every 12 hrs MS CONTIN 15 MG [id number] MORPHINE SULFATE Inactive LEXAPRO 20 MG TABS Take one by mouth daily LEXAPRO 20 MG TABS 454157 ESCITALOPRAM OXALATE Inactive MOBIC 15 MG TABS Take one by mouth daily MOBIC 15 MG TABS 574850 MELOXICAM Inactive LATUDA 20 MG TABS Take one by mouth daily LATUDA 20 MG TABS LURASIDONE HCL Inactive GABAPENTIN 600 MG TABS by mouth twice a day GABAPENTIN 600 MG TABS 085268 GABAPENTIN Inactive LEVOTHYROXINE SODIUM 25 MCG TABS Take one by mouth daily LEVOTHYROXINE SODIUM 25 MCG TABS 729479 LEVOTHYROXINE SODIUM Inactive MS CONTIN 30 MG [...] Panel - Chemistry sodium, serum 138 mmol/L 286-021 7643/11/30 potassium, serum 4.9 mmol/L 3.5-5.2 chloride, serum 102 mmol/L 98-107 carbon dioxide, venous blood 30.5 mmol/L 21.0-32.0 blood glucose 212 mg/dL 65-110 calcium, serum 9.0 mg/dL 8.5-10.1 urea nitrogen, blood 18 mg/dL 7-18 creatinine, serum 1.28 mg/dL 0.55-1.30 Lab Report: Basic Metabolic Panel, HGBA1C - Chemistry sodium, serum 138 mmol/L 302-566 1824/08/24 potassium, serum 4.6 mmol/L 3.5-5.2 chloride, serum [...] mg/dL Encounters Code Encounter Date Provider Facility CPT-48136 Level 4 Est. Patient 17:42:49 BALL MILL OPERATOR [facility] CPT-36445 Level 4 Est. Patient 16:31:44 BALL MILL OPERATOR [facility] CPT-64900 Level 3 Est. Patient 13:47:02 CDT [facility] CPT-69383 Level 4 Est. Patient 17:39:08 CDT [facility] CPT-70802 Level 3 Est. Patient 16:08:05 BALL MILL OPERATOR [facility] CPT-00429 Level 4 Est. Patient 16:28:18 BALL MILL OPERATOR [facility] CPT-74889 Level 4 Est. Patient 18:06:10 CDT [facility] CPT-26999 Level 4 Est. Patient 15:14:20 CDT [facility] CPT-94336 Level 3 Est. Patient 14:44:29 CDT [facility] CPT-49797 Level 4 Est. Patient 15:15:35 BALL MILL OPERATOR [facility] CPT-93377 Level 3 Est. Patient 15:07:35 CDT Elias Malagon [facility] CPT-71062 Level 4 Est. Patient 15:40:05 CDT Elias Malagon [facility] CPT-75491 Level 4 Est. Patient 15:32:36 BALL MILL OPERATOR Elias Malagon [facility] CPT-51283 Level 5 Est. Patient 17:33:32 BALL MILL OPERATOR Elias Malagon [facility] CPT-24960 Level 5 Est. Patient 15:05:09 [facility] Level 4 Est. Patient 15:52:02 CDT [facility] CPT-70782 Level 4 Est. Patient 16:22:51 CDT [facility] CPT-71090 Level 4 Est. Patient 17:41:26 BALL MILL OPERATOR [facility] CPT-69918 Level 3 Est. Patient 17:42:24 [facility] CPT-58411 Level 3 Est. Patient 14:01:37 CDT Evelyne Morales [facility] CPT-27312 Level 3 Est. Patient 16:13:45 [facility] Level 4 Est. Patient 17:16:06 CDT [facility] CPT-02192 Level 5 Est. Patient 16:08:43 CDT [facility] Procedures Code Procedure Name Date Entry Date Standard Description CPT-55731 HGBA1C - LAB USE ONLY 16:12:38 BALL MILL OPERATOR CPT-68610 BMP - LAB USE ONLY 16:12:38 BALL MILL OPERATOR CPT-96750 Venipuncture Draw Fee 16:12:38 BALL MILL OPERATOR CPT-34485 HGBA1C - LAB USE ONLY 09:42:26 CDT CPT-50442 BMP - LAB USE ONLY 09:42:26 CDT CPT-07843 Venipuncture Draw Fee 09:42:26 CDT CPT-12529 Prevnar 13 16:55:53 BALL MILL OPERATOR CPT-08895 Immunization Single Admin 16:55:53 BALL MILL OPERATOR CPT-93058 Pneumovax 16:04:52 BALL MILL OPERATOR
--- OUTSIDE RECORDS SUMMARY | 2018-07-23 12:05 | XMS REPORT | Clinical Summary ---
Author Author Admin, GARY Organization [facility] Address Unknown Phone Unavailable Allergies, Adverse [...] TYPE I, UNCONTROLLED 250.03 Active Malgriffin Ziglari LAY OUT DRAFTER Diabetes mellitus without mention of complication, type I [juvenile type], uncontrolled DIABETIC HYPOGLYCEMIA, TYPE I, UNCONTROLLED 250.83 Active 12/10 Malgriffin Ziglari LAY OUT DRAFTER Diabetes mellitus with other specified manifestations, type I [juvenile type], uncontrolled Continuous insulin infusion pump V46.9 Active Elias Malagon LAY OUT DRAFTER Unspecified machine and device dependence Medication List Medication Instructions Start Date Stop Date Generic Name NDC Status Provider Patient Instruction COREG 12.5 MG ORAL TABS by mouth twice a day CARVEDILOL 85865378973 Active [facility] Ziglari LAY OUT DRAFTER Active MS CONTIN 30 MG CR-TABS by mouth twice a day MORPHINE SULFATE 65804073653 No Longer Active Maleh Ziglari LAY OUT DRAFTER Active ONETOUCH ULTRA BLUE STRP check blood sugars 6x/day GLUCOSE BLOOD 51118778243 [facility] LAY OUT DRAFTER Active LEVOTHYROXINE SODIUM 50 MCG ORAL TABS Take one by mouth daily LEVOTHYROXINE SODIUM 24418633273 [facility] LAY OUT DRAFTER Active LEVOTHYROXINE SODIUM 25 MCG TABS Take one by mouth daily LEVOTHYROXINE SODIUM 20727013051 No Longer Active [facility] Ziglari LAY OUT DRAFTER Active GABAPENTIN 600 MG TABS by mouth twice a day GABAPENTIN 93965138703 No Longer Active [facility] Ziglari LAY OUT DRAFTER Active LATUDA 20 MG TABS Take one by mouth daily LURASIDONE HCL 53334363139 No Longer Active [facility] Ziglari LAY OUT DRAFTER Active RISPERDAL 2 MG ORAL TABS Take one by mouth daily RISPERIDONE 76663103624 Active [facility] Ziglari LAY OUT DRAFTER Active HUMALOG 100 UNIT/ML SOLN 100-200u/day with insulin pump INSULIN LISPRO (HUMAN) 68980575313 Active [facility] Ziglari LAY OUT DRAFTER Active MOBIC 15 MG TABS Take one by mouth daily MELOXICAM 27278115324 No Longer Active [facility] Ziglari LAY OUT DRAFTER Active LEXAPRO 20 MG TABS Take one by mouth daily ESCITALOPRAM OXALATE 73234300941 No Longer Active Maleh Ziglari LAY OUT DRAFTER Active MS CONTIN 15 MG [id number] 1 tab by mouth every 12 hrs MORPHINE SULFATE 41617804530 No Longer Active Maleh Ziglari LAY OUT DRAFTER Active GABAPENTIN 300 MG CAPS by mouth twice a day GABAPENTIN 92212048324 No Longer Active Maliheh Ziglari LAY OUT DRAFTER Active CYCLOBENZAPRINE HCL 10 MG TABS Take 1 tab every 6 hours PRN CYCLOBENZAPRINE HCL 90901202296 Active Lala Saranya Deras NURSING TECHN Active AMBIEN 10 MG TABS take 1/2 tab daily at bedtime prn ZOLPIDEM TARTRATE 24728617168 Active [facility] L[facility] DRAFTER Active KLOR-CON 10 10 MEQ CR-TABS Take one by mouth daily POTASSIUM CHLORIDE 48362285381 Active [facility] Active FUROSEMIDE 40 MG TABS Take one and 1/2 tabs by mouth daily FUROSEMIDE 47531380760 Active [facility] LAY OUT DRAFTER Active ULTRAM ER 200 MG [id number] Take one by mouth daily TRAMADOL HCL 30824956003 No Longer Active [facility] Rogelioglari LAY OUT DRAFTER Active SYMBICORT 160-4.5 MCG/ACT AERO 2 puffs bid BUDESONIDE- FORMOTEROL FUMARATE 70091567031 Active [facility] Active PREVACID 30 MG CPDR Take one by mouth twice daily LANSOPRAZOLE 13543124235 Active [facility] ZETIA 10 MG TABS Take one by mouth daily EZETIMIBE 91960193674 Active [facility] Rogelioari LAY OUT DRAFTER Active GLUCAGON EMERGENCY 1 MG KIT Inject for low blood sugar GLUCAGON (RDNA) 59037738042 Active [facility] Rogelioglari LAY OUT DRAFTER Active ATORVASTATIN CALCIUM 80 MG TABS Take one by mouth daily ATORVASTATIN CALCIUM 19367845772 Active [facility] Rogelioari LAY OUT DRAFTER Active LIPITOR 40 MG TABS take at bedtime ATORVASTATIN CALCIUM 33560408802 No Longer Active [facility] Rogelioglari LAY OUT DRAFTER Active ASPIRIN 325 MG TABS Take one by mouth daily ASPIRIN 80428506824 Active Jasmyn Mary LPN Active NOVOLOG 100 UNIT/ML SOLN per pump INSULIN ASPART 55977901313 No Longer Active Jasmyn Mary LPN Active RANEXA 1000 MG [id number] 1 by mouth every 12 hrs RANOLAZINE 85100670425 Active Jasmyn Mary LPN Active REGLAN 10 MG TABS 1 tab by mouth after meals and at hs daily METOCLOPRAMIDE HCL 46912572658 Active Jasmyn Mary LPN Active KLOR-CON M20 20 MEQ CR-TABS Take one by mouth daily POTASSIUM CHLORIDE JEANINE CR 84042136846 Active Jasmyn Mary NURSING TECHN Active WELLBUTRIN 100 MG TABS Take one by mouth 3 times daily, morning, afternoon and evening BUPROPION HCL 27055344449 Active Jasmyn Mary NURSING TECHN Active CYMBALTA 60 MG CPEP 2 caps by mouth daily DULOXETINE HCL 77622451006 Active Jasmyn Mary LPN Active RAMIPRIL 10 MG CAPS Take one by mouth daily RAMIPRIL 74132501327 Active Jasmyn Mary LPN Active PERCOCET 10-325 MG TABS one by mouth every 6 hrs as needed for pain OXYCODONE-ACETAMINOPHEN 08969316626 Active Jasmyn Mary LPN Active NITROSTAT 0.4 MG SUBL 1 tab under tongue every 5 min as need for cx pain. not to exceet total of 3 doses in 15 min NITROGLYCERIN 39794762748 Active Jasmyn Mary LPN Active LIPITOR 40 MG TABS take at bedtime LIPITOR 40 MG TABS 336076 ATORVASTATIN CALCIUM Inactive ULTRAM ER 200 MG [id number] Take one by mouth daily ULTRAM ER 200 MG [id number] TRAMADOL HCL Inactive GABAPENTIN 300 MG CAPS by mouth twice a day GABAPENTIN 300 MG CAPS 065962 GABAPENTIN Inactive MS CONTIN 15 MG [id number] 1 tab by mouth every 12 hrs MS CONTIN 15 MG [id number] MORPHINE SULFATE Inactive LEXAPRO 20 MG TABS Take one by mouth daily LEXAPRO 20 MG TABS 964431 ESCITALOPRAM OXALATE Inactive MOBIC 15 MG TABS Take one by mouth daily MOBIC 15 MG TABS 743225 MELOXICAM Inactive LATUDA 20 MG TABS Take one by mouth daily LATUDA 20 MG TABS LURASIDONE HCL Inactive GABAPENTIN 600 MG TABS by mouth twice a day GABAPENTIN 600 MG TABS 469980 GABAPENTIN Inactive LEVOTHYROXINE SODIUM 25 MCG TABS Take one by mouth daily LEVOTHYROXINE SODIUM 25 MCG TABS 433802 LEVOTHYROXINE SODIUM Inactive MS CONTIN 30 MG [...] HGBA1C - Chemistry sodium, serum 138 mmol/L 796-020 5517/02/09 potassium, serum 4.5 mmol/L 3.5-5.2 chloride, serum 100 mmol/L 98-107 carbon dioxide, venous blood 29.0 mmol/L 21.0-32.0 blood glucose 164 mg/dL 65-110 calcium, serum 8.8 mg/dL 8.5-10.1 urea nitrogen, blood 28 mg/dL 7-18 creatinine, serum 1.51 mg/dL 0.55-1.30 hemoglobin A1C, blood, as % of total hemoglobin 7.3 % 4.3-6.0 sodium, serum 138 mmol/L 483-758 2107/08/24 potassium, serum 4.6 mmol/L 3.5-5.2 chloride, serum 100 mmol/L 98-107 carbon dioxide, venous blood 31.8 mmol/L 21.0-32.0 blood glucose 267 mg/dL 65-110 calcium, serum 9.1 mg/dL 8.5-10.1 urea nitrogen, blood 15 mg/dL 7-18 creatinine, serum 1.24 mg/dL 0.55-1.30 hemoglobin A1C, blood, as % of total hemoglobin 8.1 % 4.3-6.0 Lab Report: Basic Metabolic Panel, MICROALBUMIN, HGBA1C - Chemistry sodium, serum 138 mmol/L 975-084 2807/11/04 potassium, serum 3.9 mmol/L 3.5-5.2 chloride, serum [...] mg/dL Encounters Code Encounter Date Provider Facility CPT-63018 Level 3 Est. Patient 13:47:02 CDT [facility] CPT-31599 Level 4 Est. Patient 17:39:08 CDT [facility] CPT-28713 Level 3 Est. Patient 16:08:05 BOREMATIC MACHINE OPERATOR [facility] CPT-07001 Level 4 Est. Patient 16:28:18 BOREMATIC MACHINE OPERATOR [facility] CPT-24569 Level 4 Est. Patient 18:06:10 CDT [facility] CPT-58000 Level 4 Est. Patient 15:14:20 CDT [facility] CPT-17843 Level 3 Est. Patient 14:44:29 CDT [facility] CPT-15903 Level 4 Est. Patient 15:15:35 BOREMATIC MACHINE OPERATOR [facility] CPT-89815 Level 3 Est. Patient 15:07:35 CDT [facility] CPT-82250 Level 4 Est. Patient 15:40:05 CDT Elias Malagon [facility] CPT-21012 Level 4 Est. Patient 15:32:36 BOREMATIC MACHINE OPERATOR [facility]PT-40864 Level 5 Est. Patient 17:33:32 BOREMATIC MACHINE OPERATOR [facility] CPT-59545 Level 5 Est. Patient 15:05:09 [facility] Level 4 Est. Patient 15:52:[address] [facility] CPT-43610 Level 4 Est. Patient 16:22:51 CDT [facility] CPT-73919 Level 4 Est. Patient 17:41:26 BOREMATIC MACHINE OPERATOR [facility] CPT-78113 Level 3 Est. Patient 17:42:[address] [facility] CPT-72608 Level 3 Est. Patient 14:01:37 CDT Evelyne [facility] CPT-58653 Level 3 Est. Patient 16:13:45 CDT [facility] CPT-03762 Level 4 Est. Patient 17:16:06 CDT [facility] CPT-60227 Level 5 Est. Patient 16:08:43 CDT [facility] Procedures Code Procedure Name Date Entry Date Standard Description CPT-97451 Prevnar 13 16:55:53 BOREMATIC MACHINE OPERATOR CPT-02957 Immunization Single Admin 16:55:53 BOREMATIC MACHINE OPERATOR CPT-52647 Pneumovax 16:04:52 BOREMATIC MACHINE OPERATOR
--- OUTSIDE RECORDS SUMMARY | 2018-07-23 12:06 | XMS REPORT | Clinical Summary ---
Author Author Admin, GARY Organization [facility] Address Unknown Phone Unavailable Allergies, Adverse Reactions, [...] TYPE I, UNCONTROLLED 250.03 Active Malgriffin Ziglari SHOTBLAST OPERATOR Diabetes mellitus without mention of complication, type I [juvenile type], uncontrolled DIABETIC HYPOGLYCEMIA, TYPE I, UNCONTROLLED 250.83 Active 12/10 Malgriffin Ziglari SHOTBLAST OPERATOR Diabetes mellitus with other specified manifestations, type I [juvenile type], uncontrolled Continuous insulin infusion pump V46.9 Active Elias Malagon SHOTBLAST OPERATOR Unspecified machine and device dependence Medication List Medication Instructions Start Date Stop Date Generic Name NDC Status Provider Patient Instruction RISPERDAL 2 MG ORAL TABS Take one by mouth daily RISPERIDONE 73459174895 Active [facility] Ziglari SHOTBLAST OPERATOR Active HUMALOG 100 UNIT/ML SOLN 100-200u/day with insulin pump INSULIN LISPRO (HUMAN) 32964716213 Active [facility] Ziglari SHOTBLAST OPERATOR Active MOBIC 15 MG TABS Take one by mouth daily MELOXICAM 08528138697 No Longer Active [facility] Ziglari SHOTBLAST OPERATOR Active LEXAPRO 20 MG TABS Take one by mouth daily ESCITALOPRAM OXALATE 59869912816 No Longer Active [facility] Rogelioglari SHOTBLAST OPERATOR Active MS CONTIN 30 MG CR-TABS by mouth twice a day MORPHINE SULFATE 03785007603 Active [facility] Ziglari SHOTBLAST OPERATOR Active MS CONTIN 15 MG [id number] 1 tab by mouth every 12 hrs MORPHINE SULFATE 61383423267 No Longer Active [facility] Rogelioglari SHOTBLAST OPERATOR Active LATUDA 20 MG TABS Take one by mouth daily LURASIDONE HCL 67212015655 [facility] Active GABAPENTIN 600 MG TABS by mouth twice a day GABAPENTIN 81903064304 Active [facility] Ziglari SHOTBLAST OPERATOR Active GABAPENTIN 300 MG CAPS by mouth twice a day GABAPENTIN 11521086528 No Longer Active [facility] Ziglari SHOTBLAST OPERATOR Active CYCLOBENZAPRINE HCL 10 MG TABS Take 1 tab every 6 hours PRN CYCLOBENZAPRINE HCL 14369305703 Active Lala Deras PERSONAL LINES APPRAISER Active LEVOTHYROXINE SODIUM 25 MCG TABS Take one by mouth daily LEVOTHYROXINE SODIUM 83955273191 [facility] SHOTBLAST OPERATOR Active AMBIEN 10 MG TABS take 1/2 tab daily at bedtime prn ZOLPIDEM TARTRATE 22669178048 [facility] SHOTBLAST OPERATOR Active KLOR-CON 10 10 MEQ CR-TABS Take one by mouth daily POTASSIUM CHLORIDE 82464541497 Active [facility] Ziglari SHOTBLAST OPERATOR Active FUROSEMIDE 40 MG TABS Take one and 1/2 tabs by mouth daily FUROSEMIDE 11086171339 Active [facility] ULTRAM ER 200 MG [id number] Take one by mouth daily TRAMADOL HCL 34079918152 No Longer Active [facility] SHOTBLAST OPERATOR Active SYMBICORT 160-4.5 MCG/ACT AERO 2 puffs bid BUDESONIDE- FORMOTEROL FUMARATE 21053905333 Active [facility] SHOTBLAST OPERATOR Active PREVACID 30 MG CPDR Take one by mouth twice daily LANSOPRAZOLE 26707292848 Active [facility] SHOTBLAST OPERATOR Active ZETIA 10 MG TABS Take one by mouth daily EZETIMIBE 97034390461 Active [facility] Rogelioglari SHOTBLAST OPERATOR Active GLUCAGON EMERGENCY 1 MG KIT Inject for low blood sugar GLUCAGON (RDNA) 35212130996 Active [facility] Rogelioglari SHOTBLAST OPERATOR Active CARVEDILOL 25 MG TABS Take one by mouth twice daily CARVEDILOL 23472197768 Active [facility] Rogelioari SHOTBLAST OPERATOR Active ATORVASTATIN CALCIUM 80 MG TABS Take one by mouth daily ATORVASTATIN CALCIUM 98246915421 Active [facility] Rogelioari SHOTBLAST OPERATOR Active LIPITOR 40 MG TABS take at bedtime ATORVASTATIN CALCIUM 26896822242 No Longer Active [facility] Rogelioglari SHOTBLAST OPERATOR Active ASPIRIN 325 MG TABS Take one by mouth daily ASPIRIN 91668719139 Active Jasmyn Mary LPN Active NOVOLOG 100 UNIT/ML SOLN per pump INSULIN ASPART 37921650087 No Longer Active Jasmyn Mary LPN Active RANEXA 1000 MG [id number]-CBO 1 by mouth every 12 hrs RANOLAZINE 44149806479 Active Jasmyn Mary LPN Active REGLAN 10 MG TABS 1 tab by mouth after meals and at hs daily METOCLOPRAMIDE HCL 79448657101 Active Jasmyn Mary LPN Active KLOR-CON M20 20 MEQ CR-TABS Take one by mouth daily POTASSIUM CHLORIDE JEANINE CR 80587133550 Active Jasmyn Mary LPN Active WELLBUTRIN 100 MG TABS Take one by mouth 3 times daily, morning, afternoon and evening BUPROPION HCL 66980629296 Active Jasmyn Mary LPN Active CYMBALTA 60 MG CPEP 2 caps by mouth daily DULOXETINE HCL 22127167427 Active Jasmyn Mary LPN Active RAMIPRIL 10 MG CAPS Take one by mouth daily RAMIPRIL 20520231889 Active Jasmyn Mary LPN Active PERCOCET 10-325 MG TABS one by mouth every 6 hrs as needed for pain OXYCODONE-ACETAMINOPHEN 30755327449 Active Jasmyn Mary LPN Active NITROSTAT 0.4 MG SUBL 1 tab under tongue every 5 min as need for cx pain. not to exceet total of 3 doses in 15 min NITROGLYCERIN 81899532687 Active Jasmyn Mary LPN Active LIPITOR 40 MG TABS take at bedtime LIPITOR 40 MG TABS 056232 ATORVASTATIN CALCIUM Inactive ULTRAM ER 200 MG [id number] Take one by mouth daily ULTRAM ER 200 MG [id number] TRAMADOL HCL Inactive GABAPENTIN 300 MG CAPS by mouth twice a day GABAPENTIN 300 MG CAPS 181092 GABAPENTIN Inactive MS CONTIN 15 MG [id number] 1 tab by mouth every 12 hrs MS CONTIN 15 MG [id number]-CIN MORPHINE SULFATE Inactive LEXAPRO 20 MG TABS Take one by mouth daily LEXAPRO 20 MG TABS 568174 ESCITALOPRAM OXALATE Inactive MOBIC 15 MG TABS Take one by mouth daily MOBIC 15 MG TABS 110554 MELOXICAM Inactive Advance Directives Directive Description Start [...] HGBA1C - Chemistry sodium, serum 141 mmol/L 000-550 6213/04/20 potassium, serum 4.8 mmol/L 3.5-5.2 chloride, serum 101 mmol/L 98-107 carbon dioxide, venous blood 34.5 mmol/L 21.0-32.0 blood glucose 94 mg/dL 65-110 calcium, serum 9.0 mg/dL 8.5-10.1 urea nitrogen, blood 17 mg/dL 7-18 creatinine, serum 1.20 mg/dL 0.60-1.30 hemoglobin A1C, blood, as % of total hemoglobin 7.8 % 4.3-6.0 sodium, serum 140 mmol/L 986-750 5621/07/29 potassium, serum 4.6 mmol/L 3.5-5.2 chloride, serum 102 mmol/L 98-107 carbon dioxide, venous blood 33.3 mmol/L 21.0-32.0 blood glucose 177 mg/dL 65-110 calcium, serum 8.7 mg/dL 8.5-10.1 urea nitrogen, blood 19 mg/dL 7-18 creatinine, serum 1.20 mg/dL 0.60-1.30 hemoglobin A1C, blood, as % of total hemoglobin 7.6 % 4.3-6.0 sodium, serum 138 mmol/L 710-616 1374/02/09 potassium, serum 4.5 mmol/L 3.5-5.2 chloride, serum 100 mmol/L 98-107 carbon dioxide, venous blood 29.0 mmol/L 21.0-32.0 blood glucose 164 mg/dL 65-110 calcium, serum 8.8 mg/dL 8.5-10.1 urea nitrogen, blood 28 mg/dL 7-18 creatinine, serum 1.51 mg/dL 0.55-1.30 hemoglobin A1C, blood, as % of total hemoglobin 7.3 % 4.3-6.0 Lab Report: Basic Metabolic Panel, MICROALBUMIN, HGBA1C - Chemistry sodium, serum 138 mmol/L 800-920 5005/11/04 potassium, serum 3.9 mmol/L 3.5-5.2 chloride, serum [...] mg/dL Encounters Code Encounter Date Provider Facility CPT-17982 Level 3 Est. Patient 16:08:05 ELECTRIC ENGINE MECHANIC Elias Malagon [facility] CPT-25673 Level 4 Est. Patient 16:28:18 ELECTRIC ENGINE MECHANIC Elias Ricciari [facility] CPT-18305 Level 4 Est. Patient 18:06:[address] [facility] CPT-54646 Level 4 Est. Patient 15:14:20 CDT Andreavenkata Ricciari [facility] CPT-60325 Level 3 Est. Patient 14:44:29 CDT Elias Ricciari [facility] CPT-36096 Level 4 Est. Patient 15:15:35 ELECTRIC ENGINE MECHANIC Andreavenkata Ricciari [facility] CPT-73774 Level 3 Est. [facility] 15:07:[facility] CPT-38726 Level 4 Est. Patient 15:40:05 CDT [facility] Keiryari [facility] CPT-81296 Level 4 Est. Patient 15:32:36 ELECTRIC ENGINE MECHANIC [facility] Level 5 Est. Patient 17:33:32 ELECTRIC ENGINE MECHANIC Elias Ricciari [facility] CPT-24766 Level 5 Est. Patient 15:05:[address] [facility] CPT-18038 Level 4 Est. Patient 15:52:02 CDT Elias Ricciari [facility] CPT-97043 Level 4 Est. Patient 16:22:51 CDT Elias Ricciari [facility] CPT-05958 Level 4 Est. Patient 17:41:26 ELECTRIC ENGINE MECHANIC [facility] CPT-49035 Level 3 Est. Patient 17:42:24 CDT [facility] Rogelioari [facility] CPT-67973 Level 3 Est. Patient 14:01:37 CDT Evelyne Morales [facility] CPT-52583 Level 3 Est. Patient 16:13:45 CDT Elias Malagon [facility] CPT-61928 Level 4 Est. Patient 17:16:06 CDT [facility] CPT-17040 Level 5 Est. Patient 16:08:43 CDT [facility] Procedures Code Procedure Name Date Entry Date Standard Description CPT-83403 Prevnar 13 16:55:53 ELECTRIC ENGINE MECHANIC CPT-20850 Immunization Single Admin 16:55:53 ELECTRIC ENGINE MECHANIC CPT-13769 Pneumovax 16:04:52 ELECTRIC ENGINE MECHANIC
--- OUTSIDE RECORDS SUMMARY | 2018-07-23 12:06 | XMS REPORT | Clinical Summary ---
Author Author Admin, E Organization [facility] Address Unknown Phone Unavailable Allergies, Adverse [...] TYPE I, UNCONTROLLED 250.03 Active Malgriffin Mercadoglari HEALTH DATA ANALYST Diabetes mellitus without mention of complication, type I [juvenile type], uncontrolled DIABETIC HYPOGLYCEMIA, TYPE I, UNCONTROLLED 250.83 Active 12/10 Elias Ziglari HEALTH DATA ANALYST Diabetes mellitus with other specified manifestations, type I [juvenile type], uncontrolled Continuous insulin infusion pump V46.9 Active Elias Malagon HEALTH DATA ANALYST Unspecified machine and device dependence Medication List Medication Instructions Start Date Stop Date Generic Name NDC Status Provider Patient Instruction COREG 12.5 MG ORAL TABS by mouth twice a day CARVEDILOL 22723785683 Active [facility] Ziglari HEALTH DATA ANALYST Active MS CONTIN 30 MG CR-TABS by mouth twice a day MORPHINE SULFATE 38408606700 No Longer Active Maleh Ziglari HEALTH DATA ANALYST Active ONETOUCH ULTRA BLUE STRP check blood sugars 6x/day GLUCOSE BLOOD 12596048448 Active [facility] Ziglari HEALTH DATA ANALYST Active LEVOTHYROXINE SODIUM 50 MCG ORAL TABS Take one by mouth daily LEVOTHYROXINE SODIUM 58860781672 Active [facility] Ziglari HEALTH DATA ANALYST Active LEVOTHYROXINE SODIUM 25 MCG TABS Take one by mouth daily LEVOTHYROXINE SODIUM 86362528955 No Longer Active [facility] Ziglari HEALTH DATA ANALYST Active GABAPENTIN 600 MG TABS by mouth twice a day GABAPENTIN 83033533217 No Longer Active [facility] Ziglari HEALTH DATA ANALYST Active LATUDA 20 MG TABS Take one by mouth daily LURASIDONE HCL 59810601187 No Longer Active [facility] Ziglari HEALTH DATA ANALYST Active RISPERDAL 2 MG ORAL TABS Take one by mouth daily RISPERIDONE 43322421531 Active [facility] Ziglari HEALTH DATA ANALYST Active HUMALOG 100 UNIT/ML SOLN 100-200u/day with insulin pump INSULIN LISPRO (HUMAN) 22881512402 Active [facility] Ziglari HEALTH DATA ANALYST Active MOBIC 15 MG TABS Take one by mouth daily MELOXICAM 33931583061 No Longer Active [facility] Ziglari HEALTH DATA ANALYST Active LEXAPRO 20 MG TABS Take one by mouth daily ESCITALOPRAM OXALATE 66432820027 No Longer [facility] HEALTH DATA ANALYST Active MS CONTIN 15 MG [id number] 1 tab by mouth every 12 hrs MORPHINE SULFATE 99687062777 No Longer Active Maleh Ziglari HEALTH DATA ANALYST Active GABAPENTIN 300 MG CAPS by mouth twice a day GABAPENTIN 37119217199 No Longer Active Maleh Ziglari HEALTH DATA ANALYST Active CYCLOBENZAPRINE HCL 10 MG TABS Take 1 tab every 6 hours PRN CYCLOBENZAPRINE HCL 72647311062 Active Lala Deras [employer] 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 DIRECTOR Active AMBIEN 10 MG TABS take 1/2 tab daily at bedtime prn ZOLPIDEM TARTRATE 76964938434 [facility] HEALTH DATA ANALYST Active KLOR-CON 10 10 MEQ CR-TABS Take one by mouth daily POTASSIUM CHLORIDE 44286663463 Active [facility] HEALTH DATA ANALYST Active FUROSEMIDE 40 MG TABS Take one and 1/2 tabs by mouth daily FUROSEMIDE 01903052970 Active [facility] HEALTH DATA ANALYST Active ULTRAM ER 200 MG [id number] Take one by mouth daily TRAMADOL HCL 41448950673 No Longer [facility] HEALTH DATA ANALYST Active SYMBICORT 160-4.5 MCG/ACT AERO 2 puffs bid BUDESONIDE- FORMOTEROL FUMARATE 67780947928 Active [facility] Active PREVACID 30 MG CPDR Take one by mouth twice daily LANSOPRAZOLE 17524197999 Active [facility] Active ZETIA 10 MG TABS Take one by mouth daily EZETIMIBE 13824482422 Active [facility] Rogelioglari HEALTH DATA ANALYST Active GLUCAGON EMERGENCY 1 MG KIT Inject for low blood sugar GLUCAGON (RDNA) 34808209401 Active [facility] Rogelioglari HEALTH DATA ANALYST Active ATORVASTATIN CALCIUM 80 MG TABS Take one by mouth daily ATORVASTATIN CALCIUM 24394488789 Active [facility] Rogelioglari HEALTH DATA ANALYST Active LIPITOR 40 MG TABS take at bedtime ATORVASTATIN CALCIUM 04425329743 No Longer Active [facility] Rogelioglari HEALTH DATA ANALYST Active ASPIRIN 325 MG TABS Take one by mouth daily ASPIRIN 54967769644 Active Jasmyn Mary LPN Active NOVOLOG 100 UNIT/ML SOLN per pump INSULIN ASPART 02243394417 No Longer Active Jasmyn Mary LPN Active RANEXA 1000 MG [id number] 1 by mouth every 12 hrs RANOLAZINE 33923638527 Active Jasmyn Mary LPN Active REGLAN 10 MG TABS 1 tab by mouth after meals and at hs daily METOCLOPRAMIDE HCL 03436984784 Active Jasmyn Mary LPN Active KLOR-CON M20 20 MEQ CR-TABS Take one by mouth daily POTASSIUM CHLORIDE JEANINE CR 73876697770 Active Jasmyn Mary [employer] Active WELLBUTRIN 100 MG TABS Take one by mouth 3 times daily, morning, afternoon and evening BUPROPION HCL 74227205442 Active Jasmyn Mary [employer] DIRECT[employer] Active CYMBALTA 60 MG CPEP 2 caps by mouth daily DULOXETINE HCL 65557331624 Active Jasmyn Mary LPN Active RAMIPRIL 10 MG CAPS Take one by mouth daily RAMIPRIL 76481212413 Active Jasmyn Mary [employer] Active PERCOCET 10-325 MG TABS one by mouth every 6 hrs as needed for pain OXYCODONE-ACETAMINOPHEN 63379420202 Active Jasmyn Mary LPN Active NITROSTAT 0.4 MG SUBL 1 tab under tongue every 5 min as need for cx pain. not to exceet total of 3 doses in 15 min NITROGLYCERIN 51496625815 Active Jasmyn Mary LPN Active LIPITOR 40 MG TABS take at bedtime LIPITOR 40 MG TABS 781864 ATORVASTATIN CALCIUM Inactive ULTRAM ER 200 MG [id number] Take one by mouth daily ULTRAM ER 200 MG [id number] TRAMADOL HCL Inactive GABAPENTIN 300 MG CAPS by mouth twice a day GABAPENTIN 300 MG CAPS 692560 GABAPENTIN Inactive MS CONTIN 15 MG [id number]-RWV 1 tab by mouth every 12 hrs MS CONTIN 15 MG [id number] MORPHINE SULFATE Inactive LEXAPRO 20 MG TABS Take one by mouth daily LEXAPRO 20 MG TABS 040260 ESCITALOPRAM OXALATE Inactive MOBIC 15 MG TABS Take one by mouth daily MOBIC 15 MG TABS 910615 MELOXICAM Inactive LATUDA 20 MG TABS Take one by mouth daily LATUDA 20 MG TABS LURASIDONE HCL Inactive GABAPENTIN 600 MG TABS by mouth twice a day GABAPENTIN 600 MG TABS 493760 GABAPENTIN Inactive LEVOTHYROXINE SODIUM 25 MCG TABS Take one by mouth daily LEVOTHYROXINE SODIUM 25 MCG TABS 446531 LEVOTHYROXINE SODIUM Inactive MS CONTIN 30 MG [...] Panel - Chemistry sodium, serum 138 mmol/L 282-196 1818/11/30 potassium, serum 4.9 mmol/L 3.5-5.2 chloride, serum 102 mmol/L 98-107 carbon dioxide, venous blood 30.5 mmol/L 21.0-32.0 blood glucose 212 mg/dL 65-110 calcium, serum 9.0 mg/dL 8.5-10.1 urea nitrogen, blood 18 mg/dL 7-18 creatinine, serum 1.28 mg/dL 0.55-1.30 Lab Report: Basic Metabolic Panel, HGBA1C - Chemistry sodium, serum 138 mmol/L 475-335 9802/08/24 potassium, serum 4.6 mmol/L 3.5-5.2 chloride, serum 100 mmol/L 98-107 carbon dioxide, venous blood 31.8 mmol/L 21.0-32.0 blood glucose 267 mg/dL 65-110 calcium, serum 9.1 mg/dL 8.5-10.1 urea nitrogen, blood 15 mg/dL 7-18 creatinine, serum 1.24 mg/dL 0.55-1.30 hemoglobin A1C, blood, as % of total hemoglobin 8.1 % 4.3-6.0 sodium, serum 138 mmol/L 580-897 1736/02/09 potassium, serum 4.5 mmol/L 3.5-5.2 chloride, serum [...] mg/dL Encounters Code Encounter Date Provider Facility CPT-92491 Level 4 Est. Patient 16:31:44 DX BOARD OPERATOR [facility] CPT-75284 Level 3 Est. Patient 13:47:02 CDT [facility] CPT-64883 Level 4 Est. Patient 17:39:08 CDT [facility] CPT-59910 Level 3 Est. Patient 16:08:05 DX BOARD OPERATOR [facility] CPT-69647 Level 4 Est. Patient 16:28:18 DX BOARD OPERATOR [facility] CPT-66574 Level 4 Est. Patient 18:06:10 CDT [facility] CPT-58071 Level 4 Est. Patient 15:14:20 CDT [facility] CPT-14304 Level 3 Est. Patient 14:44:29 CDT [facility] CPT-65334 Level 4 Est. Patient 15:15:35 DX BOARD OPERATOR [facility] CPT-08419 Level 3 Est. Patient 15:07:35 CDT Elias Mlaagon [facility] CPT-95175 Level 4 Est. Patient 15:40:05 CDT Elias Malagon [facility] CPT-38224 Level 4 Est. Patient 15:32:36 DX BOARD OPERATOR Elias Malagon [facility] CPT-70085 Level 5 Est. Patient 17:33:32 DX BOARD OPERATOR Elias Malagon [facility] CPT-48792 Level 5 Est. Patient 15:05:09 [facility] Level 4 Est. Patient 15:52:02 CDT Elias Malagon [facility] CPT-21670 Level 4 Est. Patient 16:22:51 CDT [facility] CPT-12420 Level 4 Est. Patient 17:41:26 DX BOARD OPERATOR [facility] [place]PT-78938 Level 3 Est. Patient 17:42:24 CDT Elias Malagon [facility] CPT-92729 Level 3 Est. Patient 14:01:37 CDT [facility] CPT-43762 Level 3 Est. Patient 16:13:45 CDT [facility] CPT-79702 Level 4 Est. Patient 17:16:06 [facility] Level 5 Est. Patient 16:08:43 CDT [facility] Procedures Code Procedure Name Date Entry Date Standard Description CPT-53558 HGBA1C - LAB USE ONLY 16:12:38 DX BOARD OPERATOR CPT-17939 BMP - LAB USE ONLY 16:12:38 DX BOARD OPERATOR CPT-96184 Venipuncture Draw Fee 16:12:38 DX BOARD OPERATOR CPT-03754 HGBA1C - LAB USE ONLY 09:42:26 CDT CPT-86430 BMP - LAB USE ONLY 09:42:26 CDT CPT-80528 Venipuncture Draw Fee 09:42:26 CDT CPT-28486 Prevnar 13 16:55:53 DX BOARD OPERATOR CPT-14503 Immunization Single Admin 16:55:53 DX BOARD OPERATOR CPT-95297 Pneumovax 16:04:52 DX BOARD OPERATOR
--- OUTSIDE RECORDS SUMMARY | 2018-07-23 12:06 | XMS REPORT | Clinical Summary ---
Author Author Admin, GARY Organization [facility] Address Unknown Phone Unavailable Allergies, Adverse [...] DIABETES MELLITUS, TYPE I, UNCONTROLLED 250.03 Active Malmarquezeh Ziglari MICROARRAY ANALYST Diabetes mellitus without mention of complication, type I [juvenile type], uncontrolled DIABETIC HYPOGLYCEMIA, TYPE I, UNCONTROLLED 250.83 Active 12/10 Malgriffin Ziglari MICROARRAY ANALYST Diabetes mellitus with other specified manifestations, type I [juvenile type], uncontrolled Continuous insulin infusion pump V46.9 Active Elias Ricciari MICROARRAY ANALYST Unspecified machine and device dependence Medication List Medication Instructions Start Date Stop Date Generic Name NDC Status Provider Patient Instruction NOVOLOG 100 UNIT/ML SC SOLN 100-200u/day INSULIN ASPART 58438640937 Active [facility] Ziglari MICROARRAY ANALYST Active HUMALOG 100 UNIT/ML SOLN 100-200u/day with insulin pump INSULIN LISPRO (HUMAN) 01031127978 No Longer Active [facility] Ziglari MICROARRAY ANALYST Active COREG 12.5 MG ORAL TABS by mouth twice a day CARVEDILOL 29910056152 [facility] Active MS CONTIN 30 MG CR-TABS by mouth twice a day MORPHINE SULFATE 60076103898 No Longer [facility] Active Allylix BLUE STRP check blood sugars 6x/day GLUCOSE BLOOD 98442930552 Active [facility] Ziglari MICROARRAY ANALYST Active LEVOTHYROXINE SODIUM 50 MCG ORAL TABS Take one by mouth daily LEVOTHYROXINE SODIUM 91724195746 [facility] MI[facility]ARRAY ANALY[facility] Active LEVOTHYROXINE SODIUM 25 MCG TABS Take one by mouth daily LEVOTHYROXINE SODIUM 51012057671 No Longer [facility] MI[facility] ANALY[facility] Active GABAPENTIN 600 MG TABS by mouth twice a day GABAPENTIN 68286179828 No Longer [facility] MI[facility]ARRAY ANALY[facility] Active LATUDA 20 MG TABS Take one by mouth daily LURASIDONE HCL 68845602130 No Longer [facility] MICROARRAY ANALYST Active RISPERDAL 2 MG ORAL TABS Take one by mouth daily RISPERIDONE 01940432818 [facility] MI[facility]ARRAY ANALY[facility] Active MOBIC 15 MG TABS Take one by mouth daily MELOXICAM 29618714766 No Longer Active [facility] Ziglari MICROARRAY ANALYST Active LEXAPRO 20 MG TABS Take one by mouth daily ESCITALOPRAM OXALATE 53934171230 No Longer [facility] MI[facility] Active MS CONTIN 15 MG [id number] 1 tab by mouth every 12 hrs MORPHINE SULFATE 25765354235 No Longer Active Maliheh Rogelioglari MICROARRAY ANALYST Active GABAPENTIN 300 MG CAPS by mouth twice a day GABAPENTIN 92269420449 No Longer Active [facility] Rogelioglari MICROARRAY ANALYST Active CYCLOBENZAPRINE HCL 10 MG TABS Take 1 tab every 6 hours PRN CYCLOBENZAPRINE HCL 19922620050 Active Lala Deras NON DESTRUCTIVE TESTER Active AMBIEN 10 MG TABS take 1/2 tab daily at bedtime prn ZOLPIDEM TARTRATE 03023766261 Active [facility] Rogelioglari MICROARRAY ANALYST Active KLOR-CON 10 10 MEQ CR-TABS Take one by mouth daily POTASSIUM CHLORIDE 13901253501 Active [facility] Rogelioglari MICROARRAY ANALYST Active FUROSEMIDE 40 MG TABS Take one and 1/2 tabs by mouth daily FUROSEMIDE 97958603124 Active Andreavenkata Mercadoglari MICROARRAY ANALYST Active ULTRAM ER 200 MG [id number] Take one by mouth daily TRAMADOL HCL 77863066894 No Longer Active [facility] Rogelioari MICROARRAY ANALYST Active SYMBICORT 160-4.5 MCG/ACT AERO 2 puffs bid BUDESONIDE- FORMOTEROL FUMARATE 91560445409 Active [facility] Rogelioglari MICROARRAY ANALYST Active PREVACID 30 MG CPDR Take one by mouth twice daily LANSOPRAZOLE 69591573763 Active [facility] Rogelioglari MICROARRAY ANALYST Active ZETIA 10 MG TABS Take one by mouth daily EZETIMIBE 88260231637 Active [facility] Rogelioglari MICROARRAY ANALYST Active GLUCAGON EMERGENCY 1 MG KIT Inject for low blood sugar GLUCAGON (RDNA) 06772745922 Active [facility] Rogelioglari MICROARRAY ANALYST Active ATORVASTATIN CALCIUM 80 MG TABS Take one by mouth daily ATORVASTATIN CALCIUM 41255249646 [facility] MICROARRAY ANALYST Active LIPITOR 40 MG TABS take at bedtime ATORVASTATIN CALCIUM 98629348520 No Longer [facility] MICROARRAY ANALYST Active ASPIRIN 325 MG TABS Take one by mouth daily ASPIRIN 92048723142 Active Jasmyn Mary NON DESTRUCTIVE TESTER Active NOVOLOG 100 UNIT/ML SOLN per pump INSULIN ASPART 73133756845 No Longer Active Jasmyn Mary LPN Active RANEXA 1000 MG [id number] 1 by mouth every 12 hrs RANOLAZINE 68876358001 Active Jasmyn Mary LPN Active REGLAN 10 MG TABS 1 tab by mouth after meals and at hs daily METOCLOPRAMIDE HCL 39068558392 Active Jasmyn Mary JOSHUA Active KLOR-CON M20 20 MEQ CR-TABS Take one by mouth daily POTASSIUM CHLORIDE JEANINE CR 42592421094 Active Jasmyn Mary NON DESTRUCTIVE TESTER Active WELLBUTRIN 100 MG TABS Take one by mouth 3 times daily, morning, afternoon and evening BUPROPION HCL 07823962192 Active Jasmyn Mary NON DESTRUCTIVE TESTER Active CYMBALTA 60 MG CPEP 2 caps by mouth daily DULOXETINE HCL 57098422205 Active Jasmyn Mary JOSHUA Active RAMIPRIL 10 MG CAPS Take one by mouth daily RAMIPRIL 27382918283 Active Jasmyn Mary NON DESTRUCTIVE TESTER Active PERCOCET 10-325 MG TABS one by mouth every 6 hrs as needed for pain OXYCODONE-ACETAMINOPHEN 06155520049 Active Jasmyn Mary NON DESTRUCTIVE TESTER Active NITROSTAT 0.4 MG SUBL 1 tab under tongue every 5 min as need for cx pain. not to exceet total of 3 doses in 15 min NITROGLYCERIN 12315306331 Active Jasmyn Mary JOSHUA Active LIPITOR 40 MG TABS take at bedtime LIPITOR 40 MG TABS 723519 ATORVASTATIN CALCIUM Inactive ULTRAM ER 200 MG [id number] Take one by mouth daily ULTRAM ER 200 MG [id number] TRAMADOL HCL Inactive GABAPENTIN 300 MG CAPS by mouth twice a day GABAPENTIN 300 MG CAPS 676458 GABAPENTIN Inactive MS CONTIN 15 MG [id number] 1 tab by mouth every 12 hrs MS CONTIN 15 MG [id number] MORPHINE SULFATE Inactive LEXAPRO 20 MG TABS Take one by mouth daily LEXAPRO 20 MG TABS 445866 ESCITALOPRAM OXALATE Inactive MOBIC 15 MG TABS Take one by mouth daily MOBIC 15 MG TABS 507196 MELOXICAM Inactive LATUDA 20 MG TABS Take one by mouth daily LATUDA 20 MG TABS LURASIDONE HCL Inactive GABAPENTIN 600 MG TABS by mouth twice a day GABAPENTIN 600 MG TABS 707784 GABAPENTIN Inactive LEVOTHYROXINE SODIUM 25 MCG TABS Take one by mouth daily LEVOTHYROXINE SODIUM 25 MCG TABS 630441 LEVOTHYROXINE SODIUM Inactive MS CONTIN 30 MG [...] Panel - Chemistry sodium, serum 138 mmol/L 835-725 6075/11/30 potassium, serum 4.9 mmol/L 3.5-5.2 chloride, serum 102 mmol/L 98-107 carbon dioxide, venous blood 30.5 mmol/L 21.0-32.0 blood glucose 212 mg/dL 65-110 calcium, serum 9.0 mg/dL 8.5-10.1 urea nitrogen, blood 18 mg/dL 7-18 creatinine, serum 1.28 mg/dL 0.55-1.30 Lab Report: Basic Metabolic Panel, HGBA1C - Chemistry sodium, serum 138 mmol/L 939-168 0847/08/24 potassium, serum 4.6 mmol/L 3.5-5.2 chloride, serum 100 mmol/L 98-107 carbon dioxide, venous blood 31.8 mmol/L 21.0-32.0 blood glucose 267 mg/dL 65-110 calcium, serum 9.1 mg/dL 8.5-10.1 urea nitrogen, blood 15 mg/dL 7-18 creatinine, serum 1.24 mg/dL 0.55-1.30 hemoglobin A1C, blood, as % of total hemoglobin 8.1 % 4.3-6.0 Lab Report: HGBA1C - Chemistry hemoglobin A1C, blood, as % of total hemoglobin 6.9 % 4.3-6.0 hemoglobin A1C, blood, as % of total hemoglobin 7.7 % 4.3-6.0 Office Visit: Diabetes Visit - [...] mg/dL Encounters Code Encounter Date Provider Facility CPT-17030 Level 4 Est. Patient 17:42:49 COMPUTER SYSTEMS SECURITY ANALYST [facility] CPT-71645 Level 4 Est. Patient 16:31:44 COMPUTER SYSTEMS SECURITY ANALYST [facility] CPT-70639 Level 3 Est. Patient 13:47:02 CDT [facility] CPT-03823 Level 4 Est. Patient 17:39:08 CDT [facility] CPT-53573 Level 3 Est. Patient 16:08:05 COMPUTER SYSTEMS SECURITY ANALYST [facility] CPT-12299 Level 4 Est. Patient 16:28:18 COMPUTER SYSTEMS SECURITY ANALYST [facility] CPT-07261 Level 4 Est. Patient 18:06:10 CDT [facility] CPT-92299 Level 4 Est. Patient 15:14:20 CDT [facility] CPT-27065 Level 3 Est. Patient 14:44:29 CDT [facility] CPT-10763 Level 4 Est. Patient 15:15:35 COMPUTER SYSTEMS SECURITY ANALYST [facility] CPT-48291 Level 3 Est. Patient 15:07:35 CDT [facility] CPT-66967 Level 4 Est. Patient 15:40:05 CDT [facility] CPT-19836 Level 4 Est. Patient 15:32:36 COMPUTER SYSTEMS SECURITY ANALYST Elias Malagon [facility] CPT-19588 Level 5 Est. Patient 17:33:32 COMPUTER SYSTEMS SECURITY ANALYST Elias Malagon [facility] CPT-66841 Level 5 Est. Patient 15:05:09 CDT Elias Malagon [facility] CPT-30866 Level 4 Est. Patient 15:52:02 CDT Elias Malagon [facility] CPT-84136 Level 4 Est. Patient 16:22:51 CDT Elias Malagon [facility] CPT-23570 Level 4 Est. Patient 17:41:26 COMPUTER SYSTEMS SECURITY ANALYST [facility]18[facility] Level 3 Est. Patient 17:42:24 CDT Elias Malagon [facility] CPT-57762 Level 3 Est. Patient 14:01:37 CDT Evelyne Morales [facility] CPT-31436 Level 3 Est. Patient 16:13:45 CDT Elias Malagon [facility] CPT-91236 Level 4 Est. Patient 17:16:06 [facility] Level 5 Est. Patient 16:08:43 CDT [facility] Procedures Code Procedure Name Date Entry Date Standard Description CPT-99688 HGBA1C - LAB USE ONLY 16:12:38 COMPUTER SYSTEMS SECURITY ANALYST CPT-65693 BMP - LAB USE ONLY 16:12:38 COMPUTER SYSTEMS SECURITY ANALYST CPT-30862 Venipuncture Draw Fee 16:12:38 COMPUTER SYSTEMS SECURITY ANALYST CPT-30919 HGBA1C - LAB USE ONLY 09:42:26 CDT CPT-52676 BMP - LAB USE ONLY 09:42:26 CDT CPT-13633 Venipuncture Draw Fee 09:42:26 CDT CPT-05038 Prevnar 13 16:55:53 COMPUTER SYSTEMS SECURITY ANALYST CPT-07137 Immunization Single Admin 16:55:53 COMPUTER SYSTEMS SECURITY ANALYST CPT-93258 Pneumovax 16:04:52 COMPUTER SYSTEMS SECURITY ANALYST
--- OUTSIDE RECORDS SUMMARY | 2018-07-23 12:07 | XMS REPORT | Clinical Summary ---
Author Author Admin, GARY Organization [facility] Address Unknown Phone Unavailable Allergies, [...] TYPE I, UNCONTROLLED 250.03 Active Malgriffin Mercadoglari PATTERN HAND Diabetes mellitus without mention of complication, type I [juvenile type], uncontrolled DIABETIC HYPOGLYCEMIA, TYPE I, UNCONTROLLED 250.83 Active 12/10 Malgriffin Ziglari PATTERN HAND Diabetes mellitus with other specified manifestations, type I [juvenile type], uncontrolled Continuous insulin infusion pump V46.9 Active Elias Malagon PATTERN HAND Unspecified machine and device dependence Medication List Medication Instructions Start Date Stop Date Generic Name NDC Status Provider Patient Instruction COREG 12.5 MG ORAL TABS by mouth twice a day CARVEDILOL 68689922562 Active [facility] Ziglari PATTERN HAND Active MS CONTIN 30 MG CR-TABS by mouth twice a day MORPHINE SULFATE 11921941441 No Longer Active Maleh Ziglari PATTERN HAND Active ONETOUCH ULTRA BLUE STRP check blood sugars 6x/day GLUCOSE BLOOD 24172955593 [facility] Active LEVOTHYROXINE SODIUM 50 MCG ORAL TABS Take one by mouth daily LEVOTHYROXINE SODIUM 57937752587 Active [facility] Ziglari PATTERN HAND Active LEVOTHYROXINE SODIUM 25 MCG TABS Take one by mouth daily LEVOTHYROXINE SODIUM 49061192397 No Longer Active [facility] Ziglari PATTERN HAND Active GABAPENTIN 600 MG TABS by mouth twice a day GABAPENTIN 36137833780 No Longer Active [facility] Ziglari PATTERN HAND Active LATUDA 20 MG TABS Take one by mouth daily LURASIDONE HCL 13090669144 No Longer Active [facility] Ziglari PATTERN HAND Active RISPERDAL 2 MG ORAL TABS Take one by mouth daily RISPERIDONE 65728549366 Active [facility] Ziglari PATTERN HAND Active HUMALOG 100 UNIT/ML SOLN 100-200u/day with insulin pump INSULIN LISPRO (HUMAN) 80042778485 Active [facility] Ziglari PATTERN HAND Active MOBIC 15 MG TABS Take one by mouth daily MELOXICAM 52003223774 No Longer [facility] HAND Active LEXAPRO 20 MG TABS Take one by mouth daily ESCITALOPRAM OXALATE 82501312929 No Longer Active Maleh Ziglari PATTERN HAND Active MS CONTIN 15 MG [id number] 1 tab by mouth every 12 hrs MORPHINE SULFATE 04885504099 No Longer Active Maleh Ziglari PATTERN HAND Active GABAPENTIN 300 MG CAPS by mouth twice a day GABAPENTIN 02680191854 No Longer Active Maleh Ziglari PATTERN HAND Active CYCLOBENZAPRINE HCL 10 MG TABS Take 1 tab every 6 hours PRN CYCLOBENZAPRINE HCL 88048336332 Active Lala Deras PARACHUTIST/COMBATANT DIVER QUALIFIED Active AMBIEN 10 MG TABS take 1/2 tab daily at bedtime prn ZOLPIDEM TARTRATE 93320782537 [facility] PAT[facility] HAND Active KLOR-CON 10 10 MEQ CR-TABS Take one by mouth daily POTASSIUM CHLORIDE 05738626131 Active [facility] PAT[facility] HAND Active FUROSEMIDE 40 MG TABS Take one and 1/2 tabs by mouth daily FUROSEMIDE 59827404367 Active [facility] PATTERN HAND Active ULTRAM ER 200 MG [id number] Take one by mouth daily TRAMADOL HCL 20475237329 No Longer [facility] PATTERN HAND Active SYMBICORT 160-4.5 MCG/ACT AERO 2 puffs bid BUDESONIDE- FORMOTEROL FUMARATE 86865260676 Active [facility] Active PREVACID 30 MG CPDR Take one by mouth twice daily LANSOPRAZOLE 96259359441 [facility] Active ZETIA 10 MG TABS Take one by mouth daily EZETIMIBE 88388160262 Active [facility] Rogelioglari PATTERN HAND Active GLUCAGON EMERGENCY 1 MG KIT Inject for low blood sugar GLUCAGON (RDNA) 73827577606 Active [facility] Rogelioglari PATTERN HAND Active ATORVASTATIN CALCIUM 80 MG TABS Take one by mouth daily ATORVASTATIN CALCIUM 87595834059 Active [facility] Rogelioglari PATTERN HAND Active LIPITOR 40 MG TABS take at bedtime ATORVASTATIN CALCIUM 84542419500 No Longer Active [facility] Rogelioglari PATTERN HAND Active ASPIRIN 325 MG TABS Take one by mouth daily ASPIRIN 33084644693 Active Jasmyn Mary LPN Active NOVOLOG 100 UNIT/ML SOLN per pump INSULIN ASPART 74258292885 No Longer Active Jasmyn Mary LPN Active RANEXA 1000 MG [id number] 1 by mouth every 12 hrs RANOLAZINE 03212822148 Active Jasmyn Mary LPN Active REGLAN 10 MG TABS 1 tab by mouth after meals and at hs daily METOCLOPRAMIDE HCL 75873790632 Active Jasmyn Mary LPN Active KLOR-CON M20 20 MEQ CR-TABS Take one by mouth daily POTASSIUM CHLORIDE JEANINE CR 24531192304 Active Jasmyn Mary PARACHUTIST/COMBATANT DIVER QUALIFIED Active WELLBUTRIN 100 MG TABS Take one by mouth 3 times daily, morning, afternoon and evening BUPROPION HCL 26793393324 Active Jasmyn Mary PARACHUTIST/COMBATANT DIVER QUALIFIED Active CYMBALTA 60 MG CPEP 2 caps by mouth daily DULOXETINE HCL 03313594944 Active Jasmyn Mary PARACHUTIST/COMBATANT DIVER QUALIFIED Active RAMIPRIL 10 MG CAPS Take one by mouth daily RAMIPRIL 01443784477 Active Jasmyn Mary PARACHUTIST/COMBATANT DIVER QUALIFIED Active PERCOCET 10-325 MG TABS one by mouth every 6 hrs as needed for pain OXYCODONE-ACETAMINOPHEN 74310821418 Active Jasmyn Mary LPN Active NITROSTAT 0.4 MG SUBL 1 tab under tongue every 5 min as need for cx pain. not to exceet total of 3 doses in 15 min NITROGLYCERIN 71412598544 Active Jasmyn Mary LPN Active LIPITOR 40 MG TABS take at bedtime LIPITOR 40 MG TABS 973690 ATORVASTATIN CALCIUM Inactive ULTRAM ER 200 MG [id number] Take one by mouth daily ULTRAM ER 200 MG [id number] TRAMADOL HCL Inactive GABAPENTIN 300 MG CAPS by mouth twice a day GABAPENTIN 300 MG CAPS 109161 GABAPENTIN Inactive MS CONTIN 15 MG [id number] 1 tab by mouth every 12 hrs MS CONTIN 15 MG [id number] MORPHINE SULFATE Inactive LEXAPRO 20 MG TABS Take one by mouth daily LEXAPRO 20 MG TABS 956907 ESCITALOPRAM OXALATE Inactive MOBIC 15 MG TABS Take one by mouth daily MOBIC 15 MG TABS 812659 MELOXICAM Inactive LATUDA 20 MG TABS Take one by mouth daily LATUDA 20 MG TABS LURASIDONE HCL Inactive GABAPENTIN 600 MG TABS by mouth twice a day GABAPENTIN 600 MG TABS 843457 GABAPENTIN Inactive LEVOTHYROXINE SODIUM 25 MCG TABS Take one by mouth daily LEVOTHYROXINE SODIUM 25 MCG TABS 759900 LEVOTHYROXINE SODIUM Inactive MS CONTIN 30 MG [...] HGBA1C - Chemistry sodium, serum 138 mmol/L 741-726 6209/02/09 potassium, serum 4.5 mmol/L 3.5-5.2 chloride, serum 100 mmol/L 98-107 carbon dioxide, venous blood 29.0 mmol/L 21.0-32.0 blood glucose 164 mg/dL 65-110 calcium, serum 8.8 mg/dL 8.5-10.1 urea nitrogen, blood 28 mg/dL 7-18 creatinine, serum 1.51 mg/dL 0.55-1.30 hemoglobin A1C, blood, as % of total hemoglobin 7.3 % 4.3-6.0 sodium, serum 138 mmol/L 680-956 3148/08/24 potassium, serum 4.6 mmol/L 3.5-5.2 chloride, serum 100 mmol/L 98-107 carbon dioxide, venous blood 31.8 mmol/L 21.0-32.0 blood glucose 267 mg/dL 65-110 calcium, serum 9.1 mg/dL 8.5-10.1 urea nitrogen, blood 15 mg/dL 7-18 creatinine, serum 1.24 mg/dL 0.55-1.30 hemoglobin A1C, blood, as % of total hemoglobin 8.1 % 4.3-6.0 Lab Report: Basic Metabolic Panel, MICROALBUMIN, HGBA1C - Chemistry sodium, serum 138 mmol/L 593-587 8439/11/04 potassium, serum 3.9 mmol/L 3.5-5.2 chloride, serum [...] mg/dL Encounters Code Encounter Date Provider Facility CPT-02424 Level 3 Est. Patient 13:47:02 CDT [facility] CPT-81302 Level 4 Est. Patient 17:39:08 CDT [facility] CPT-33751 Level 3 Est. Patient 16:08:05 ROAD MIXER OPERATOR [facility] CPT-19161 Level 4 Est. Patient 16:28:18 ROAD MIXER OPERATOR [facility]09[place] Level 4 Est. Patient 18:06:10 [place] [facility]36 Level 4 Est. Patient 15:14:20 [place] [facility] [place]-24231 Level 3 Est. Patient 14:44:29 CD[place] [facility]PT-33749 Level 4 Est. Patient 15:15:35 ROAD MIXER OPERATOR [facility] [place]PT-56873 Level 3 Est. Patient 15:07:35 CDT [facility] [place]PT-42066 Level 4 Est. Patient 15:40:05 CDT Elias Malagon [facility] CPT-89190 Level 4 Est. Patient 15:32:36 ROAD MIXER OPERATOR Elias Malagon [facility] CPT-31971 Level 5 Est. Patient 17:33:32 ROAD MIXER OPERATOR Andreavenkata Malagon [facility] CPT-73426 Level 5 Est. Patient 15:05:09 CDT Elias Malagon [facility] CPT-74527 Level 4 Est. [facility] 15[facility]52:[facility] Level 4 Est. Patient 16:22:51 CD[facility] C[facility]14093 Level 4 Est. Patient 17:41:26 ROAD MIXER OPERATOR [facility]PT-08746 Level 3 Est. Patient 17:42:24 CD[facility] CPT-54250 Level 3 Est. Patient 14:01:37 CDT [facility] CPT-01499 Level 3 Est. Patient 16:13:45 [facility]19 Level 4 Est. Patient 17:16:06 [facility]01777 Level 5 Est. Patient 16:08:43 CDT [facility] Procedures Code Procedure Name Date Entry Date Standard Description CPT-38073 HGBA1C - LAB USE ONLY 09:42:26 CDT CPT-50106 BMP - LAB USE ONLY 09:42:26 CDT CPT-14055 Venipuncture Draw Fee 09:42:26 CDT CPT-92609 Prevnar 13 16:55:53 [address] MIXER OPERATOR CPT-67309 Immunization Single Admin 16:55:53 RO[address] MIXER OPERATOR CPT-70755 Pneumovax 16:04:52 [address] MIXER OPERATOR
--- OUTSIDE RECORDS SUMMARY | 2018-07-23 12:08 | XMS REPORT | Clinical Summary ---
Author Author Admin, GARY Organization [facility] Address Unknown Phone Unavailable Allergies, [...] of diabetes mellitus FH STROKE V17.1 Active aJsmyn Mary LPN Family history of stroke (cerebrovascular) FH BREAST CANCER V16.3 Active Jasmyn Mary LPN Family history of malignant neoplasm of breast DIABETES MELLITUS, TYPE I, UNCONTROLLED 250.03 Active Maliheh Ziglari PLANT MAINTENANCE TECHNICIAN Diabetes mellitus without mention of complication, type I [juvenile type], uncontrolled DIABETIC HYPOGLYCEMIA, TYPE I, UNCONTROLLED 250.83 Active 12/10 Maliheh Ziglari PLANT MAINTENANCE TECHNICIAN Diabetes mellitus with other specified manifestations, type I [juvenile type], uncontrolled Medication List Medication Instructions Start Date Stop Date Generic Name NDC Status Provider Patient Instruction RISPERDAL 1 MG TABS Take one and 1/2 by mouth daily RISPERIDONE 99576883103 Active Maliheh Ziglari PLANT MAINTENANCE TECHNICIAN Active MOBIC 15 MG TABS Take one by mouth daily MELOXICAM 57091868770 No Longer Active [facility] Ziglari PLANT MAINTENANCE TECHNICIAN Active LEXAPRO 20 MG TABS Take one by mouth daily ESCITALOPRAM OXALATE 40716253497 No Longer Active [facility] Rogelioglari PLANT MAINTENANCE TECHNICIAN Active MS CONTIN 30 MG CR-TABS by mouth twice a day MORPHINE SULFATE 62734846989 Active [facility] Ziglari PLANT MAINTENANCE TECHNICIAN Active MS CONTIN 15 MG [id number] 1 tab by mouth every 12 hrs MORPHINE SULFATE 82980945976 No Longer Active [facility] Rogelioglari PLANT MAINTENANCE TECHNICIAN Active LATUDA 20 MG TABS Take one by mouth daily LURASIDONE HCL 92231986926 [facility] MAINTENANCE TECHNICIAN Active GABAPENTIN 600 MG TABS by mouth twice a day GABAPENTIN 87383929298 [facility] PLANT MAINTENANCE TECHNICIAN Active GABAPENTIN 300 MG CAPS by mouth twice a day GABAPENTIN 15595359126 No Longer Active [facility] Rogelioglari PLANT MAINTENANCE TECHNICIAN Active CYCLOBENZAPRINE HCL 10 MG TABS Take 1 tab every 6 hours PRN CYCLOBENZAPRINE HCL 32266149337 Active Lala Deras XEROX MACHINE ASSEMBLER Active LEVOTHYROXINE SODIUM 25 MCG TABS Take one by mouth daily LEVOTHYROXINE SODIUM 51333596614 Active [facility] Rogelioglari PLANT MAINTENANCE TECHNICIAN Active AMBIEN 10 MG TABS take 1/2 tab daily at bedtime prn ZOLPIDEM TARTRATE 20503889219 [facility] PLANT MAINTENANCE TECHNICIAN Active KLOR-CON 10 10 MEQ CR-TABS Take one by mouth daily POTASSIUM CHLORIDE 11955176609 [facility] PLANT MAINTENANCE TECHNICIAN Active FUROSEMIDE 40 MG TABS Take one and 1/2 tabs by mouth daily FUROSEMIDE 69499277154 [facility] PLANT MAINTENANCE TECHNICIAN Active ULTRAM ER 200 MG [id number] Take one by mouth daily TRAMADOL HCL 30422481231 No Longer [facility] PLANT MAINTENANCE TECHNICIAN Active SYMBICORT 160-4.5 MCG/ACT AERO 2 puffs bid BUDESONIDE- FORMOTEROL FUMARATE 58088024970 Active [facility] Rogelioglari PLANT MAINTENANCE TECHNICIAN Active PREVACID 30 MG CPDR Take one by mouth twice daily LANSOPRAZOLE 41622052296 Active [facility] Rogelioglari PLANT MAINTENANCE TECHNICIAN Active ZETIA 10 MG TABS Take one by mouth daily EZETIMIBE 97440094576 [facility] PLANT MAINTENANCE TECHNICIAN Active GLUCAGON EMERGENCY 1 MG KIT Inject for low blood sugar GLUCAGON (RDNA) 74399319802 Active [facility] Rogelioglari PLANT MAINTENANCE TECHNICIAN Active CARVEDILOL 25 MG TABS Take one by mouth twice daily CARVEDILOL 84335593655 Active [facility] Rogelioglari PLANT MAINTENANCE TECHNICIAN Active ATORVASTATIN CALCIUM 80 MG TABS Take one by mouth daily ATORVASTATIN CALCIUM 98029969689 [facility] PLANT MAINTENANCE TECHNICIAN Active LIPITOR 40 MG TABS take at bedtime ATORVASTATIN CALCIUM 06250933539 No Longer Active [facility] Rogelioglari PLANT MAINTENANCE TECHNICIAN Active ASPIRIN 325 MG TABS Take one by mouth daily ASPIRIN 88895673399 Active Jasmyn Mary LPN Active NOVOLOG 100 UNIT/ML SOLN per pump INSULIN ASPART 20384194337 Active Jasmyn Mary LPN Active RANEXA 1000 MG [id number] 1 by mouth every 12 hrs RANOLAZINE 82840918297 Active Jasmyn Mary LPN Active REGLAN 10 MG TABS 1 tab by mouth after meals and at hs daily METOCLOPRAMIDE HCL 42093989588 Active Jasmyn Mary LPN Active KLOR-CON M20 20 MEQ CR-TABS Take one by mouth daily POTASSIUM CHLORIDE JEANINE CR 93009266123 Active Jasmyn Mary LPN Active WELLBUTRIN 100 MG TABS Take one by mouth 3 times daily, morning, afternoon and evening BUPROPION HCL 98787458308 Active Jasmyn Mary LPN Active CYMBALTA 60 MG CPEP 2 caps by mouth daily DULOXETINE HCL 51318550029 Active Jasmyn Mary LPN Active RAMIPRIL 10 MG CAPS Take one by mouth daily RAMIPRIL 37233389958 Active Jasmyn Mary LPN Active PERCOCET 10-325 MG TABS one by mouth every 6 hrs as needed for pain OXYCODONE-ACETAMINOPHEN 81231074612 Active Jasmyn Mary LPN Active NITROSTAT 0.4 MG SUBL 1 tab under tongue every 5 min as need for cx pain. not to exceet total of 3 doses in 15 min NITROGLYCERIN 73665935001 Active Jasmyn Mary LPN Active LIPITOR 40 MG TABS take at bedtime LIPITOR 40 MG TABS 666489 ATORVASTATIN CALCIUM Inactive ULTRAM ER 200 MG [id number] Take one by mouth daily ULTRAM ER 200 MG [id number] TRAMADOL HCL Inactive GABAPENTIN 300 MG CAPS by mouth twice a day GABAPENTIN 300 MG CAPS 202930 GABAPENTIN Inactive MS CONTIN 15 MG [id number] 1 tab by mouth every 12 hrs MS CONTIN 15 MG [id number] MORPHINE SULFATE Inactive LEXAPRO 20 MG TABS Take one by mouth daily LEXAPRO 20 MG TABS 354193 ESCITALOPRAM OXALATE Inactive MOBIC 15 MG TABS Take one by mouth daily MOBIC 15 MG TABS 880577 MELOXICAM Inactive Advance Directives Directive Description Start [...] HGBA1C - Chemistry sodium, serum 141 mmol/L 744-273 2686/04/20 potassium, serum 4.8 mmol/L 3.5-5.2 chloride, serum 101 mmol/L 98-107 carbon dioxide, venous blood 34.5 mmol/L 21.0-32.0 blood glucose 94 mg/dL 65-110 calcium, serum 9.0 mg/dL 8.5-10.1 urea nitrogen, blood 17 mg/dL 7-18 creatinine, serum 1.20 mg/dL 0.60-1.30 hemoglobin A1C, blood, as % of total hemoglobin 7.8 % 4.3-6.0 sodium, serum 140 mmol/L 982-619 9132/07/29 potassium, serum 4.6 mmol/L 3.5-5.2 chloride, serum [...] mg/dL Encounters Code Encounter Date Provider Facility CPT-90396 Level 4 Est. Patient 18:06:10 CDT [facility] [place] CPT-14350 Level 4 Est. Patient 15:14:20 CDT [facility] [place] CPT-85998 Level 3 Est. Patient 14:44:29 CDT [facility] [place] CPT-64540 Level 4 Est. Patient 15:15:35 ACTIVITIES CONCIERGE [facility] [place] CPT-93172 Level 3 Est. Patient 15:07:35 CDT [facility] [place] CPT-34716 Level 4 Est. Patient 15:40:05 CDT [facility] [place] CPT-78903 Level 4 Est. Patient 15:32:36 ACTIVITIES CONCIERGE [facility] [place] CPT-12189 Level 5 Est. Patient 17:33:32 ACTIVITIES CONCIERGE [facility] [place] CPT-35468 Level 5 Est. Patient 15:05:09 CDT [facility] [place] CPT-78906 Level 4 Est. Patient 15:52:02 CDT Elias Malagon [facility] CPT-62330 Level 4 Est. Patient 16:22:51 CDT Elias Malagon [facility] CPT-40157 Level 4 Est. Patient 17:41:26 ACTIVITIES CONCIERGE Elias Riccijesus [facility] CPT-75934 Level 3 Est. Patient 17:42:24 CDT Elias Malagon [facility] CPT-84483 Level 3 Est. Patient 14:01:37 CDT Evelyne Morales [facility] CPT-36151 Level 3 Est. Patient 16:13:45 CDT Elias Mercadogeraldo [facility] CPT-72526 Level 4 Est. Patient 17:16:06 CDT Elias Riccijesus [facility] CPT-30055 Level 5 Est. [facility]:08:[facility]
--- OUTSIDE RECORDS SUMMARY | 2018-07-23 12:08 | XMS REPORT | Clinical Summary ---
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.83 Active 12/10 Malgriffin Ziglari FINANCIAL COMPLIANCE MANAGER Diabetes mellitus with other specified manifestations, type I [juvenile type], uncontrolled Continuous insulin infusion pump V46.9 Active Elias Malagon FINANCIAL COMPLIANCE MANAGER Unspecified machine and device dependence Medication List Medication Instructions Start Date Stop Date Generic Name NDC Status Provider Patient Instruction COREG 12.5 MG ORAL TABS by mouth twice a day CARVEDILOL 58820266237 Active [facility] Ziglari FINANCIAL COMPLIANCE MANAGER Active MS CONTIN 30 MG CR-TABS by mouth twice a day MORPHINE SULFATE 22740686652 No Longer Active Maleh Ziglari FINANCIAL COMPLIANCE MANAGER Active ONETOUCH ULTRA BLUE STRP check blood sugars 6x/day GLUCOSE BLOOD 17536086665 [facility] FINANCIAL COMPLIANCE MANAGER Active LEVOTHYROXINE SODIUM 50 MCG ORAL TABS Take one by mouth daily LEVOTHYROXINE SODIUM 64325361318 [facility] Z[facility] FINANCIAL COMPLIANCE MANAGER Active LEVOTHYROXINE SODIUM 25 MCG TABS Take one by mouth daily LEVOTHYROXINE SODIUM 99523824114 No Longer Active [facility] Ziglari FINANCIAL COMPLIANCE MANAGER Active GABAPENTIN 600 MG TABS by mouth twice a day GABAPENTIN 47948059059 No Longer Active [facility] Ziglari FINANCIAL COMPLIANCE MANAGER Active LATUDA 20 MG TABS Take one by mouth daily LURASIDONE HCL 82364329956 No Longer Active [facility] Ziglari FINANCIAL COMPLIANCE MANAGER Active RISPERDAL 2 MG ORAL TABS Take one by mouth daily RISPERIDONE 10268651185 Active [facility] Ziglari FINANCIAL COMPLIANCE MANAGER Active HUMALOG 100 UNIT/ML SOLN 100-200u/day with insulin pump INSULIN LISPRO (HUMAN) 57622172116 Active [facility] Ziglari FINANCIAL COMPLIANCE MANAGER Active MOBIC 15 MG TABS Take one by mouth daily MELOXICAM 79247902942 No Longer Active [facility] Ziglari FINANCIAL COMPLIANCE MANAGER Active LEXAPRO 20 MG TABS Take one by mouth daily ESCITALOPRAM OXALATE 49185787259 No Longer Active Maleh Ziglari FINANCIAL COMPLIANCE MANAGER Active MS CONTIN 15 MG [id number] 1 tab by mouth every 12 hrs MORPHINE SULFATE 33188737068 No Longer Active Maleh Ziglari FINANCIAL COMPLIANCE MANAGER Active GABAPENTIN 300 MG CAPS by mouth twice a day GABAPENTIN 10060438048 No Longer Active Maliheh Ziglari FINANCIAL COMPLIANCE MANAGER Active CYCLOBENZAPRINE HCL 10 MG TABS Take 1 tab every 6 hours PRN CYCLOBENZAPRINE HCL 37402459217 Active Lala Saranya Deras MARKETING ASSISTANT Active AMBIEN 10 MG TABS take 1/2 tab daily at bedtime prn ZOLPIDEM TARTRATE 15435507043 Active [facility] FINANCIAL COMPLIANCE MANAGER Active KLOR-CON 10 10 MEQ CR-TABS Take one by mouth daily POTASSIUM CHLORIDE 48872358095 [facility] FUROSEMIDE 40 MG TABS Take one and 1/2 tabs by mouth daily FUROSEMIDE 19584764520 Active [facility] FINANCIAL COMPLIANCE MANAGER Active ULTRAM ER 200 MG [id number] Take one by mouth daily TRAMADOL HCL 44240967788 No Longer Active [facility] Rogelioglari FINANCIAL COMPLIANCE MANAGER Active SYMBICORT 160-4.5 MCG/ACT AERO 2 puffs bid BUDESONIDE- FORMOTEROL FUMARATE 81481359870 Active [facility] Active PREVACID 30 MG CPDR Take one by mouth twice daily LANSOPRAZOLE 91466817035 [facility] ZETIA 10 MG TABS Take one by mouth daily EZETIMIBE 72774986807 Active [facility] Rogelioari FINANCIAL COMPLIANCE MANAGER Active GLUCAGON EMERGENCY 1 MG KIT Inject for low blood sugar GLUCAGON (RDNA) 80606302759 Active [facility] Rogelioglari FINANCIAL COMPLIANCE MANAGER Active ATORVASTATIN CALCIUM 80 MG TABS Take one by mouth daily ATORVASTATIN CALCIUM 97944718257 Active [facility] Rogelioari FINANCIAL COMPLIANCE MANAGER Active LIPITOR 40 MG TABS take at bedtime ATORVASTATIN CALCIUM 86737851877 No Longer Active [facility] Rogelioglari FINANCIAL COMPLIANCE MANAGER Active ASPIRIN 325 MG TABS Take one by mouth daily ASPIRIN 41613836199 Active Jasmyn Mary LPN Active NOVOLOG 100 UNIT/ML SOLN per pump INSULIN ASPART 00792555593 No Longer Active Jasmyn Mary LPN Active RANEXA 1000 MG [id number] 1 by mouth every 12 hrs RANOLAZINE 76929833228 Active Jasmyn Mary LPN Active REGLAN 10 MG TABS 1 tab by mouth after meals and at hs daily METOCLOPRAMIDE HCL 12046974059 Active Jasmyn Mary LPN Active KLOR-CON M20 20 MEQ CR-TABS Take one by mouth daily POTASSIUM CHLORIDE JEANINE CR 96562688245 Active Jasmyn Mary MARKETING ASSISTANT Active WELLBUTRIN 100 MG TABS Take one by mouth 3 times daily, morning, afternoon and evening BUPROPION HCL 75700902756 Active Jasmyn Mary MARKETING ASSISTANT Active CYMBALTA 60 MG CPEP 2 caps by mouth daily DULOXETINE HCL 07764575484 Active Jasmyn Mary LPN Active RAMIPRIL 10 MG CAPS Take one by mouth daily RAMIPRIL 34835751370 Active Jasmyn Mary LPN Active PERCOCET 10-325 MG TABS one by mouth every 6 hrs as needed for pain OXYCODONE-ACETAMINOPHEN 07218724196 Active Jasmyn Mary LPN Active NITROSTAT 0.4 MG SUBL 1 tab under tongue every 5 min as need for cx pain. not to exceet total of 3 doses in 15 min NITROGLYCERIN 96849361621 Active Jasmyn Mary LPN Active LIPITOR 40 MG TABS take at bedtime LIPITOR 40 MG TABS 387793 ATORVASTATIN CALCIUM Inactive ULTRAM ER 200 MG [id number] Take one by mouth daily ULTRAM ER 200 MG [id number] TRAMADOL HCL Inactive GABAPENTIN 300 MG CAPS by mouth twice a day GABAPENTIN 300 MG CAPS 064460 GABAPENTIN Inactive MS CONTIN 15 MG [id number] 1 tab by mouth every 12 hrs MS CONTIN 15 MG [id number] MORPHINE SULFATE Inactive LEXAPRO 20 MG TABS Take one by mouth daily LEXAPRO 20 MG TABS 088321 ESCITALOPRAM OXALATE Inactive MOBIC 15 MG TABS Take one by mouth daily MOBIC 15 MG TABS 889491 MELOXICAM Inactive LATUDA 20 MG TABS Take one by mouth daily LATUDA 20 MG TABS LURASIDONE HCL Inactive GABAPENTIN 600 MG TABS by mouth twice a day GABAPENTIN 600 MG TABS 282780 GABAPENTIN Inactive LEVOTHYROXINE SODIUM 25 MCG TABS Take one by mouth daily LEVOTHYROXINE SODIUM 25 MCG TABS 460295 LEVOTHYROXINE SODIUM Inactive MS CONTIN 30 MG [...] Panel - Chemistry sodium, serum 138 mmol/L 536-947 6414/11/30 potassium, serum 4.9 mmol/L 3.5-5.2 chloride, serum 102 mmol/L 98-107 carbon dioxide, venous blood 30.5 mmol/L 21.0-32.0 blood glucose 212 mg/dL 65-110 calcium, serum 9.0 mg/dL 8.5-10.1 urea nitrogen, blood 18 mg/dL 7-18 creatinine, serum 1.28 mg/dL 0.55-1.30 Lab Report: Basic Metabolic Panel, HGBA1C - Chemistry sodium, serum 138 mmol/L 187-493 5920/08/24 potassium, serum 4.6 mmol/L 3.5-5.2 chloride, serum 100 mmol/L 98-107 carbon dioxide, venous blood 31.8 mmol/L 21.0-32.0 blood glucose 267 mg/dL 65-110 calcium, serum 9.1 mg/dL 8.5-10.1 urea nitrogen, blood 15 mg/dL 7-18 creatinine, serum 1.24 mg/dL 0.55-1.30 hemoglobin A1C, blood, as % of total hemoglobin 8.1 % 4.3-6.0 sodium, serum 138 mmol/L 881-221 0946/02/09 potassium, serum 4.5 mmol/L 3.5-5.2 chloride, serum [...] mg/dL Encounters Code Encounter Date Provider Facility CPT-60510 Level 4 Est. Patient 16:31:44 GROUNDS CREW SUPERVISOR [facility] Level 3 Est. Patient 13:47:02 CDT [facility] CPT-90436 Level 4 Est. Patient 17:39:08 CDT [facility] CPT-66605 Level 3 Est. Patient 16:08:05 GROUNDS CREW SUPERVISOR [facility] CPT-42672 Level 4 Est. Patient 16:28:18 GROUNDS CREW SUPERVISOR [facility] Level 4 Est. Patient 18:06:10 CDT [facility] CPT-20927 Level 4 Est. Patient 15:14:20 CDT [facility] CPT-94114 Level 3 Est. Patient 14:44:29 CDT [facility] CPT-71598 Level 4 Est. Patient 15:15:35 GROUNDS CREW SUPERVISOR [facility] CPT-05586 Level 3 Est. Patient 15:07:35 CDT Elias Malagon [facility] CPT-02393 Level 4 Est. Patient 15:40:05 CDT Elias Malagon [facility] CPT-02659 Level 4 Est. Patient 15:32:36 GROUNDS CREW SUPERVISOR Elias Malagon [facility] CPT-60950 Level 5 Est. Patient 17:33:32 GROUNDS CREW SUPERVISOR Elias Malagon [facility] CPT-27059 Level 5 Est. Patient 15:05:09 [facility] Level 4 Est. Patient 15:52:02 [facility]18[facility] Level 4 Est. Patient 16:22:51 [facility] Level 4 Est. Patient 17:41:26 GROUNDS CREW SUPERVISOR [facility] CPT-40715 Level 3 Est. Patient 17:42:24 [facility] CPT-60497 Level 3 Est. Patient 14:01:37 CDT [facility] CPT-52482 Level 3 Est. Patient 16:13:45 [facility] CPT-34327 Level 4 Est. Patient 17:16:06 [facility] Level 5 Est. Patient 16:08:43 CDT [facility] Procedures Code Procedure Name Date Entry Date Standard Description CPT-60809 HGBA1C - LAB USE ONLY 16:12:38 GROUNDS CREW SUPERVISOR CPT-95948 BMP - LAB USE ONLY 16:12:38 GROUNDS CREW SUPERVISOR CPT-62249 Venipuncture Draw Fee 16:12:38 GROUNDS CREW SUPERVISOR CPT-05859 HGBA1C - LAB USE ONLY 09:42:26 CDT CPT-83815 BMP - LAB USE ONLY 09:42:26 CDT CPT-43630 Venipuncture Draw Fee 09:42:26 CDT CPT-70538 Prevnar 13 16:55:53 GROUNDS CREW SUPERVISOR CPT-60352 Immunization Single Admin 16:55:53 GROUNDS CREW SUPERVISOR CPT-24348 Pneumovax 16:04:52 GROUNDS CREW SUPERVISOR
--- OUTSIDE RECORDS SUMMARY | 2018-07-23 12:08 | XMS REPORT | Clinical Summary ---
[...] TYPE I, UNCONTROLLED 250.03 Active Malgriffin Ziglari OIL BURNER SERVICER AND INSTALLER Diabetes mellitus without mention of complication, type I [juvenile type], uncontrolled DIABETIC HYPOGLYCEMIA, TYPE I, UNCONTROLLED 250.83 Active 12/10 Malgriffin Ziglari OIL BURNER SERVICER AND INSTALLER Diabetes mellitus with other specified manifestations, type I [juvenile type], uncontrolled Continuous insulin infusion pump V46.9 Active Elias Malagon OIL BURNER SERVICER AND INSTALLER Unspecified machine and device dependence Medication List Medication Instructions Start Date Stop Date Generic Name NDC Status Provider Patient Instruction COREG 12.5 MG ORAL TABS by mouth twice a day CARVEDILOL 60636677315 Active [facility] Ziglari OIL BURNER SERVICER AND INSTALLER Active MS CONTIN 30 MG CR-TABS by mouth twice a day MORPHINE SULFATE 00779306683 No Longer Active Maleh Ziglari OIL BURNER SERVICER AND INSTALLER Active ONETOUCH ULTRA BLUE STRP check blood sugars 6x/day GLUCOSE BLOOD 45754157013 [facility] OIL BURNER SERVICER AND INSTALLER Active LEVOTHYROXINE SODIUM 50 MCG ORAL TABS Take one by mouth daily LEVOTHYROXINE SODIUM 69563865591 Active [facility] Ziglari OIL BURNER SERVICER AND INSTALLER Active LEVOTHYROXINE SODIUM 25 MCG TABS Take one by mouth daily LEVOTHYROXINE SODIUM 67889012204 No Longer Active [facility] Ziglari OIL BURNER SERVICER AND INSTALLER Active GABAPENTIN 600 MG TABS by mouth twice a day GABAPENTIN 56145729705 No Longer Active [facility] Ziglari OIL BURNER SERVICER AND INSTALLER Active LATUDA 20 MG TABS Take one by mouth daily LURASIDONE HCL 77117902124 No Longer Active [facility] Ziglari OIL BURNER SERVICER AND INSTALLER Active RISPERDAL 2 MG ORAL TABS Take one by mouth daily RISPERIDONE 16053926336 Active [facility] Ziglari OIL BURNER SERVICER AND INSTALLER Active HUMALOG 100 UNIT/ML SOLN 100-200u/day with insulin pump INSULIN LISPRO (HUMAN) 13166333291 Active [facility] Ziglari OIL BURNER SERVICER AND INSTALLER Active MOBIC 15 MG TABS Take one by mouth daily MELOXICAM 19096287124 No Longer [facility] OIL BURNER SERVICER AND INSTALLER Active LEXAPRO 20 MG TABS Take one by mouth daily ESCITALOPRAM OXALATE 13742308178 No Longer Active Maleh Ziglari OIL BURNER SERVICER AND INSTALLER Active MS CONTIN 15 MG [id number] 1 tab by mouth every 12 hrs MORPHINE SULFATE 24101784292 No Longer Active Maleh Ziglari OIL BURNER SERVICER AND INSTALLER Active GABAPENTIN 300 MG CAPS by mouth twice a day GABAPENTIN 17482911411 No Longer Active Maleh Ziglari OIL BURNER SERVICER AND INSTALLER Active CYCLOBENZAPRINE HCL 10 MG TABS Take 1 tab every 6 hours PRN CYCLOBENZAPRINE HCL 31686459832 Active Lala Deras C S S REPRESENTATIVE Active AMBIEN 10 MG TABS take 1/2 tab daily at bedtime prn ZOLPIDEM TARTRATE 33837078084 Active Andreavenkata Mercad[facility] OIL BURNER SERVICER AND INSTALLER Active KLOR-CON 10 10 MEQ CR-TABS Take one by mouth daily POTASSIUM CHLORIDE 39176904112 Active [facility] Rogeliovon [facility] OIL BURNER SERVICER AND INSTALLER Active FUROSEMIDE 40 MG TABS Take one and 1/2 tabs by mouth daily FUROSEMIDE 89884222890 Active [facility] Rogeliovon [facility] OIL BURNER SERVICER AND INSTALLER Active ULTRAM ER 200 MG [id number] Take one by mouth daily TRAMADOL HCL 12525242411 No Longer Active [facility] OIL BURNER SERVICER AND INSTALLER Active SYMBICORT 160-4.5 MCG/ACT AERO 2 puffs bid BUDESONIDE- FORMOTEROL FUMARATE 95467402445 Active [facility] Active PREVACID 30 MG CPDR Take one by mouth twice daily LANSOPRAZOLE 65352054868 Active [facility] Active ZETIA 10 MG TABS Take one by mouth daily EZETIMIBE 68624838582 Active [facility] Rogelioglari OIL BURNER SERVICER AND INSTALLER Active GLUCAGON EMERGENCY 1 MG KIT Inject for low blood sugar GLUCAGON (RDNA) 09472766189 Active [facility] Rogelioglari OIL BURNER SERVICER AND INSTALLER Active ATORVASTATIN CALCIUM 80 MG TABS Take one by mouth daily ATORVASTATIN CALCIUM 70213637392 Active [facility] Rogelioglari OIL BURNER SERVICER AND INSTALLER Active LIPITOR 40 MG TABS take at bedtime ATORVASTATIN CALCIUM 70660440444 No Longer Active [facility] Rogelioglari OIL BURNER SERVICER AND INSTALLER Active ASPIRIN 325 MG TABS Take one by mouth daily ASPIRIN 71937124444 Active Jasmyn Mary LPN Active NOVOLOG 100 UNIT/ML SOLN per pump INSULIN ASPART 28401592653 No Longer Active Jasmyn Mary LPN Active RANEXA 1000 MG [id number] 1 by mouth every 12 hrs RANOLAZINE 42925214286 Active Jasmyn Mary LPN Active REGLAN 10 MG TABS 1 tab by mouth after meals and at hs daily METOCLOPRAMIDE HCL 40832540562 Active Jasmyn Mary LPN Active KLOR-CON M20 20 MEQ CR-TABS Take one by mouth daily POTASSIUM CHLORIDE JEANINE CR 03067911553 Active Jasmyn Mary C S S REPRESENTATIVE Active WELLBUTRIN 100 MG TABS Take one by mouth 3 times daily, morning, afternoon and evening BUPROPION HCL 82224784620 Active Jasmyn Mary C S S REPRESENTATIVE Active CYMBALTA 60 MG CPEP 2 caps by mouth daily DULOXETINE HCL 57936712434 Active Jasmyn Mary C S S REPRESENTATIVE Active RAMIPRIL 10 MG CAPS Take one by mouth daily RAMIPRIL 57874105485 Active Jasmyn Mary C S S REPRESENTATIVE Active PERCOCET 10-325 MG TABS one by mouth every 6 hrs as needed for pain OXYCODONE-ACETAMINOPHEN 72411883426 Active Jasmyn Mary LPN Active NITROSTAT 0.4 MG SUBL 1 tab under tongue every 5 min as need for cx pain. not to exceet total of 3 doses in 15 min NITROGLYCERIN 77714912063 Active Jasmyn Mary LPN Active LIPITOR 40 MG TABS take at bedtime LIPITOR 40 MG TABS 838302 ATORVASTATIN CALCIUM Inactive ULTRAM ER 200 MG [id number] Take one by mouth daily ULTRAM ER 200 MG [id number] TRAMADOL HCL Inactive GABAPENTIN 300 MG CAPS by mouth twice a day GABAPENTIN 300 MG CAPS 414962 GABAPENTIN Inactive MS CONTIN 15 MG [id number] 1 tab by mouth every 12 hrs MS CONTIN 15 MG [id number] MORPHINE SULFATE Inactive LEXAPRO 20 MG TABS Take one by mouth daily LEXAPRO 20 MG TABS 591249 ESCITALOPRAM OXALATE Inactive MOBIC 15 MG TABS Take one by mouth daily MOBIC 15 MG TABS 056902 MELOXICAM Inactive LATUDA 20 MG TABS Take one by mouth daily LATUDA 20 MG TABS LURASIDONE HCL Inactive GABAPENTIN 600 MG TABS by mouth twice a day GABAPENTIN 600 MG TABS 311830 GABAPENTIN Inactive LEVOTHYROXINE SODIUM 25 MCG TABS Take one by mouth daily LEVOTHYROXINE SODIUM 25 MCG TABS 683681 LEVOTHYROXINE SODIUM Inactive MS CONTIN 30 MG [...] pressure, diastolic - 8462-4 60 mm[Hg] BP ramierz blood pressure, systolic - 8480-6 134 mm[Hg] [...] Panel - Chemistry sodium, serum 138 mmol/L 470-860 8923/11/30 potassium, serum 4.9 mmol/L 3.5-5.2 chloride, serum 102 mmol/L 98-107 carbon dioxide, venous blood 30.5 mmol/L 21.0-32.0 blood glucose 212 mg/dL 65-110 calcium, serum 9.0 mg/dL 8.5-10.1 urea nitrogen, blood 18 mg/dL 7-18 creatinine, serum 1.28 mg/dL 0.55-1.30 Lab Report: Basic Metabolic Panel, HGBA1C - Chemistry sodium, serum 138 mmol/L 017-209 6883/08/24 potassium, serum 4.6 mmol/L 3.5-5.2 chloride, serum 100 mmol/L 98-107 carbon dioxide, venous blood 31.8 mmol/L 21.0-32.0 blood glucose 267 mg/dL 65-110 calcium, serum 9.1 mg/dL 8.5-10.1 urea nitrogen, blood 15 mg/dL 7-18 creatinine, serum 1.24 mg/dL 0.55-1.30 hemoglobin A1C, blood, as % of total hemoglobin 8.1 % 4.3-6.0 sodium, serum 138 mmol/L 870-319 1690/02/09 potassium, serum 4.5 mmol/L 3.5-5.2 chloride, serum [...] mg/dL Encounters Code Encounter Date Provider Facility CPT-31780 Level 4 Est. Patient 16:31:44 ORTHOTICS PROSTHETICS TECHNICIAN [facility] CPT-35819 Level 3 Est. Patient 13:47:02 CDT [facility] CPT-07944 Level 4 Est. Patient 17:39:08 CDT [facility] CPT-05254 Level 3 Est. Patient 16:08:05 ORTHOTICS PROSTHETICS TECHNICIAN [facility] CPT-98607 Level 4 Est. Patient 16:28:18 ORTHOTICS PROSTHETICS TECHNICIAN [facility] CPT-97549 Level 4 Est. Patient 18:06:10 CDT [facility] CPT-18365 Level 4 Est. Patient 15:14:20 CDT [facility] CPT-62854 Level 3 Est. Patient 14:44:29 CDT [facility] CPT-64639 Level 4 Est. Patient 15:15:35 ORTHOTICS PROSTHETICS TECHNICIAN [facility] CPT-01842 Level 3 Est. Patient 15:07:35 CDT Maliheh Ziglari [facility] CPT-36731 Level 4 Est. Patient 15:40:05 CDT Elias Malagon [facility] CPT-28517 Level 4 Est. Patient 15:32:36 ORTHOTICS PROSTHETICS TECHNICIAN Elias Malagon [facility] CPT-42304 Level 5 Est. Patient 17:33:32 ORTHOTICS PROSTHETICS TECHNICIAN Elias Malagon [facility] CPT-53620 Level 5 Est. Patient 15:05:09 [facility] Level 4 Est. Patient 15:52:02 CDT Elias Malagon [facility] CPT-72414 Level 4 Est. Patient 16:22:51 [facility] Level 4 Est. Patient 17:41:26 ORTHOTICS PROSTHETICS TECHNICIAN [facility]01532 Level 3 Est. Patient 17:42:24 CDT Elias Malagon [facility] CPT-02823 Level 3 Est. Patient 14:01:37 CDT Evelyne Morales [facility] CPT-73999 Level 3 Est. Patient 16:13:45 [facility] Level 4 Est. Patient 17:16:06 CD[facility]51847 Level 5 Est. Patient 16:08:43 CDT [facility] Procedures Code Procedure Name Date Entry Date Standard Description CPT-21976 HGBA1C - LAB USE ONLY 16:12:38 ORTHOTICS PROSTHETICS TECHNICIAN CPT-44436 BMP - LAB USE ONLY 16:12:38 ORTHOTICS PROSTHETICS TECHNICIAN CPT-34395 Venipuncture Draw Fee 16:12:38 ORTHOTICS PROSTHETICS TECHNICIAN CPT-74784 HGBA1C - LAB USE ONLY 09:42:26 CDT CPT-52466 BMP - LAB USE ONLY 09:42:26 CDT CPT-01738 Venipuncture Draw Fee 09:42:26 CDT CPT-01899 Prevnar 13 16:55:53 ORTHOTICS PROSTHETICS TECHNICIAN CPT-49205 Immunization Single Admin 16:55:53 ORTHOTICS PROSTHETICS TECHNICIAN CPT-17710 Pneumovax 16:04:52 ORTHOTICS PROSTHETICS TECHNICIAN
--- OUTSIDE RECORDS SUMMARY | 2018-07-23 12:09 | XMS REPORT | Clinical Summary ---
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.83 Active 12/10 Malgriffin Ziglari DEPARTMENT DIRECTOR Diabetes mellitus with other specified manifestations, type I [juvenile type], uncontrolled Continuous insulin infusion pump V46.9 Active Elias Malagon DEPARTMENT DIRECTOR Unspecified machine and device dependence Medication List Medication Instructions Start Date Stop Date Generic Name NDC Status Provider Patient Instruction COREG 12.5 MG ORAL TABS by mouth twice a day CARVEDILOL 86862324991 Active [facility] Ziglari DEPARTMENT DIRECTOR Active MS CONTIN 30 MG CR-TABS by mouth twice a day MORPHINE SULFATE 99725126592 No Longer Active Maleh Ziglari DEPARTMENT DIRECTOR Active ONETOUCH ULTRA BLUE STRP check blood sugars 6x/day GLUCOSE BLOOD 64516393105 [facility] DEPART[facility] DIRECT[facility] Active LEVOTHYROXINE SODIUM 50 MCG ORAL TABS Take one by mouth daily LEVOTHYROXINE SODIUM 63485085533 [facility] DEPARTMENT DIRECTOR Active LEVOTHYROXINE SODIUM 25 MCG TABS Take one by mouth daily LEVOTHYROXINE SODIUM 86494999482 No Longer Active [facility] Ziglari DEPARTMENT DIRECTOR Active GABAPENTIN 600 MG TABS by mouth twice a day GABAPENTIN 40286149876 No Longer Active [facility] Ziglari DEPARTMENT DIRECTOR Active LATUDA 20 MG TABS Take one by mouth daily LURASIDONE HCL 18816660945 No Longer Active [facility] Ziglari DEPARTMENT DIRECTOR Active RISPERDAL 2 MG ORAL TABS Take one by mouth daily RISPERIDONE 63747702179 Active [facility] Ziglari DEPARTMENT DIRECTOR Active HUMALOG 100 UNIT/ML SOLN 100-200u/day with insulin pump INSULIN LISPRO (HUMAN) 85154770724 Active [facility] Ziglari DEPARTMENT DIRECTOR Active MOBIC 15 MG TABS Take one by mouth daily MELOXICAM 00762816257 No Longer Active [facility] Ziglari DEPARTMENT DIRECTOR Active LEXAPRO 20 MG TABS Take one by mouth daily ESCITALOPRAM OXALATE 60641341682 No Longer Active Maleh Ziglari DEPARTMENT DIRECTOR Active MS CONTIN 15 MG [id number] 1 tab by mouth every 12 hrs MORPHINE SULFATE 98018184367 No Longer Active Maleh Ziglari DEPARTMENT DIRECTOR Active GABAPENTIN 300 MG CAPS by mouth twice a day GABAPENTIN 02891446195 No Longer Active Maliheh Ziglari DEPARTMENT DIRECTOR Active CYCLOBENZAPRINE HCL 10 MG TABS Take 1 tab every 6 hours PRN CYCLOBENZAPRINE HCL 84191845586 Active Lala Saranya Deras CLINIC SCHEDULER Active AMBIEN 10 MG TABS take 1/2 tab daily at bedtime prn ZOLPIDEM TARTRATE 92724156353 Active [facility] DEPART[facility] DIRECTOR Active KLOR-CON 10 10 MEQ CR-TABS Take one by mouth daily POTASSIUM CHLORIDE 74574940997 Active [facility] Active FUROSEMIDE 40 MG TABS Take one and 1/2 tabs by mouth daily FUROSEMIDE 45399058471 Active [facility] DEPARTMENT DIRECTOR Active ULTRAM ER 200 MG [id number] Take one by mouth daily TRAMADOL HCL 99965372616 No Longer Active [facility] Rogelioglari DEPARTMENT DIRECTOR Active SYMBICORT 160-4.5 MCG/ACT AERO 2 puffs bid BUDESONIDE- FORMOTEROL FUMARATE 44869683052 Active [facility] Active PREVACID 30 MG CPDR Take one by mouth twice daily LANSOPRAZOLE 81359874120 Active [facility] ZETIA 10 MG TABS Take one by mouth daily EZETIMIBE 07654542517 Active [facility] Rogelioari DEPARTMENT DIRECTOR Active GLUCAGON EMERGENCY 1 MG KIT Inject for low blood sugar GLUCAGON (RDNA) 46275076449 Active [facility] Rogelioglari DEPARTMENT DIRECTOR Active ATORVASTATIN CALCIUM 80 MG TABS Take one by mouth daily ATORVASTATIN CALCIUM 03465886291 Active [facility] Rogelioari DEPARTMENT DIRECTOR Active LIPITOR 40 MG TABS take at bedtime ATORVASTATIN CALCIUM 99020227234 No Longer Active [facility] Rogelioglari DEPARTMENT DIRECTOR Active ASPIRIN 325 MG TABS Take one by mouth daily ASPIRIN 60831180837 Active Jasmyn Mary LPN Active NOVOLOG 100 UNIT/ML SOLN per pump INSULIN ASPART 91074210033 No Longer Active Jasmyn Mary LPN Active RANEXA 1000 MG [id number] 1 by mouth every 12 hrs RANOLAZINE 24438668999 Active Jasmyn Mary LPN Active REGLAN 10 MG TABS 1 tab by mouth after meals and at hs daily METOCLOPRAMIDE HCL 92033391453 Active Jasmyn Mary LPN Active KLOR-CON M20 20 MEQ CR-TABS Take one by mouth daily POTASSIUM CHLORIDE JEANINE CR 88528865223 Active Jasmyn Mary CLINIC SCHEDULER Active WELLBUTRIN 100 MG TABS Take one by mouth 3 times daily, morning, afternoon and evening BUPROPION HCL 64682399770 Active Jasmyn Mary CLINIC SCHEDULER Active CYMBALTA 60 MG CPEP 2 caps by mouth daily DULOXETINE HCL 11287977326 Active Jasmyn Mary LPN Active RAMIPRIL 10 MG CAPS Take one by mouth daily RAMIPRIL 10414982289 Active Jasmyn Mary LPN Active PERCOCET 10-325 MG TABS one by mouth every 6 hrs as needed for pain OXYCODONE-ACETAMINOPHEN 92309776072 Active Jasmyn Mary LPN Active NITROSTAT 0.4 MG SUBL 1 tab under tongue every 5 min as need for cx pain. not to exceet total of 3 doses in 15 min NITROGLYCERIN 48592009401 Active Jasmyn Mary LPN Active LIPITOR 40 MG TABS take at bedtime LIPITOR 40 MG TABS 125202 ATORVASTATIN CALCIUM Inactive ULTRAM ER 200 MG [id number] Take one by mouth daily ULTRAM ER 200 MG [id number] TRAMADOL HCL Inactive GABAPENTIN 300 MG CAPS by mouth twice a day GABAPENTIN 300 MG CAPS 233344 GABAPENTIN Inactive MS CONTIN 15 MG [id number] 1 tab by mouth every 12 hrs MS CONTIN 15 MG [id number] MORPHINE SULFATE Inactive LEXAPRO 20 MG TABS Take one by mouth daily LEXAPRO 20 MG TABS 895025 ESCITALOPRAM OXALATE Inactive MOBIC 15 MG TABS Take one by mouth daily MOBIC 15 MG TABS 989743 MELOXICAM Inactive LATUDA 20 MG TABS Take one by mouth daily LATUDA 20 MG TABS LURASIDONE HCL Inactive GABAPENTIN 600 MG TABS by mouth twice a day GABAPENTIN 600 MG TABS 460422 GABAPENTIN Inactive LEVOTHYROXINE SODIUM 25 MCG TABS Take one by mouth daily LEVOTHYROXINE SODIUM 25 MCG TABS 510453 LEVOTHYROXINE SODIUM Inactive MS CONTIN 30 MG [...] HGBA1C - Chemistry sodium, serum 138 mmol/L 110-236 9955/08/24 potassium, serum 4.6 mmol/L 3.5-5.2 chloride, serum 100 mmol/L 98-107 carbon dioxide, venous blood 31.8 mmol/L 21.0-32.0 blood glucose 267 mg/dL 65-110 calcium, serum 9.1 mg/dL 8.5-10.1 urea nitrogen, blood 15 mg/dL 7-18 creatinine, serum 1.24 mg/dL 0.55-1.30 hemoglobin A1C, blood, as % of total hemoglobin 8.1 % 4.3-6.0 sodium, serum 138 mmol/L 335-274 6017/02/09 potassium, serum 4.5 mmol/L 3.5-5.2 chloride, serum 100 mmol/L 98-107 carbon dioxide, venous blood 29.0 mmol/L 21.0-32.0 blood glucose 164 mg/dL 65-110 calcium, serum 8.8 mg/dL 8.5-10.1 urea nitrogen, blood 28 mg/dL 7-18 creatinine, serum 1.51 mg/dL 0.55-1.30 hemoglobin A1C, blood, as % of total hemoglobin 7.3 % 4.3-6.0 Lab Report: Basic Metabolic Panel, MICROALBUMIN, HGBA1C - Chemistry sodium, serum 138 mmol/L 646-855 2339/11/04 potassium, serum 3.9 mmol/L 3.5-5.2 chloride, serum [...] mg/dL Encounters Code Encounter Date Provider Facility CPT-53424 Level 3 Est. Patient 13:47:02 CDT Elias Ricciari [facility] CPT-60571 Level 4 Est. Patient 17:39:08 CDT Elias Ricciari [facility] CPT-57224 Level 3 Est. Patient 16:08:05 CARTON MAKER Elias Ricciari [facility] CPT-19088 Level 4 Est. Patient 16:28:18 CARTON MAKER Elias Ricciari [facility] CPT-57170 Level 4 Est. Patient 18:06:10 CDT Elias Ricciari [facility] CPT-56864 Level 4 Est. Patient 15:14:20 CDT [facility] Keiryari [facility] CPT-32659 Level 3 Est. [facility] 14:44:[facility] CPT-79058 Level 4 Est. Patient 15:15:35 [facility]ON [facility] CPT-07357 Level 3 Est. Patient 15:07:35 CDT [facility] Level 4 Est. Patient 15:40:05 CDT Elias Ricciari [facility] CPT-88975 Level 4 Est. Patient 15:32:36 CARTON MAKER Elias Ricciari [facility] CPT-80118 Level 5 Est. Patient 17:33:32 CARTON MAKER Elias Ricciari [facility] CPT-14420 Level 5 Est. Patient 15:05:09 CDT [facility] Rogelioglari [facility] CPT-13914 Level 4 Est. Patient 15:52:02 CDT [facility] [place] [facility] Level 4 Est. Patient 16:22:51 CDT Andreavenkata [facility] CPT-13711 Level 4 Est. Patient 17:41:26 CARTON MAKER [facility] CPT-38724 Level 3 Est. Patient 17:42:24 CD[facility] [place] [facility]PT-23688 Level 3 Est. Patient 14:01:37 [facility] Level 3 Est. Patient 16:13:45 CDT [facility] CPT-13990 Level 4 Est. Patient 17:16:06 CDT [facility] CPT-19850 Level 5 Est. Patient 16:08:43 CDT [facility] Procedures Code Procedure Name Date Entry Date Standard Description CPT-77956 Prevnar 13 16:55:53 CARTON MAKER CPT-69496 Immunization Single Admin 16:55:53 CARTON MAKER CPT-30554 Pneumovax 16:04:52 CARTON MAKER
--- OUTSIDE RECORDS SUMMARY | 2018-07-23 12:09 | XMS REPORT | Clinical Summary ---
Author Author Admin, GARY Organization [facility] Address Unknown Phone Unavailable Allergies, Adverse [...] TYPE I, UNCONTROLLED 250.03 Active Maliheh Ziglari CREDIT OR LOANS OFFICER Diabetes mellitus without mention of complication, type I [juvenile type], uncontrolled DIABETIC HYPOGLYCEMIA, TYPE I, UNCONTROLLED 250.83 Active 12/10 Maliheh Ziglari CREDIT OR LOANS OFFICER Diabetes mellitus with other specified manifestations, type I [juvenile type], uncontrolled Medication List Medication Instructions Start Date Stop Date Generic Name NDC Status Provider Patient Instruction MOBIC 15 MG TABS Take one by mouth daily MELOXICAM 03809597550 No Longer Active Maliheh Ziglari CREDIT OR LOANS OFFICER Active LEXAPRO 20 MG TABS Take one by mouth daily ESCITALOPRAM OXALATE 07303659581 No Longer Active [facility] Ziglari CREDIT OR LOANS OFFICER Active RISPERDAL 1 MG TABS Take one by mouth daily RISPERIDONE 47867012968 Active [facility] Ziglari CREDIT OR LOANS OFFICER Active MS CONTIN 30 MG CR-TABS by mouth twice a day MORPHINE SULFATE 01026789897 Active [facility] Ziglari CREDIT OR LOANS OFFICER Active MS CONTIN 15 MG [id number] 1 tab by mouth every 12 hrs MORPHINE SULFATE 34112449012 No Longer Active [facility] Rogelioglari CREDIT OR LOANS OFFICER Active LATUDA 20 MG TABS Take one by mouth daily LURASIDONE HCL 94561651883 Active [facility] Rogelioglari CREDIT OR LOANS OFFICER Active GABAPENTIN 600 MG TABS by mouth twice a day GABAPENTIN 45686104811 Active [facility] Ziglari CREDIT OR LOANS OFFICER Active GABAPENTIN 300 MG CAPS by mouth twice a day GABAPENTIN 13421284164 No Longer Active [facility] Ziglari CREDIT OR LOANS OFFICER Active CYCLOBENZAPRINE HCL 10 MG TABS Take 1 tab every 6 hours PRN CYCLOBENZAPRINE HCL 52044881429 Active Lala Deras COMPLIANCE MGR Active LEVOTHYROXINE SODIUM 25 MCG TABS Take one by mouth daily LEVOTHYROXINE SODIUM 28759209680 Active [facility] Rogelioglari CREDIT OR LOANS OFFICER Active AMBIEN 10 MG TABS take 1/2 tab daily at bedtime prn ZOLPIDEM TARTRATE 36390931102 Active [facility] Rogelioglari CREDIT OR LOANS OFFICER Active KLOR-CON 10 10 MEQ CR-TABS Take one by mouth daily POTASSIUM CHLORIDE 99708757308 Active [facility] Ziglari CREDIT OR LOANS OFFICER Active FUROSEMIDE 40 MG TABS Take one and 1/2 tabs by mouth daily FUROSEMIDE 91160952315 Active [facility] Ziglari CREDIT OR LOANS OFFICER Active ULTRAM ER 200 MG [id number] Take one by mouth daily TRAMADOL HCL 25933878670 No Longer Active [facility] Ziglari CREDIT OR LOANS OFFICER Active SYMBICORT 160-4.5 MCG/ACT AERO 2 puffs bid BUDESONIDE- FORMOTEROL FUMARATE 85608157009 Active [facility] Active PREVACID 30 MG CPDR Take one by mouth twice daily LANSOPRAZOLE 05355388036 Active [facility] CREDIT OR LOANS OFFICER Active ZETIA 10 MG TABS Take one by mouth daily EZETIMIBE 58485944222 Active [facility] CREDIT OR LOANS OFFICER Active GLUCAGON EMERGENCY 1 MG KIT Inject for low blood sugar GLUCAGON (RDNA) 68354149859 Active [facility] CREDIT OR LOANS OFFICER Active CARVEDILOL 25 MG TABS Take one by mouth twice daily CARVEDILOL 02943780633 Active [facility] CREDIT OR LOANS OFFICER Active ATORVASTATIN CALCIUM 80 MG TABS Take one by mouth daily ATORVASTATIN CALCIUM 49043091372 Active [facility] CREDIT OR LOANS OFFICER Active LIPITOR 40 MG TABS take at bedtime ATORVASTATIN CALCIUM 10141009629 No Longer Active [facility] OR LOANS OFFICER Active ASPIRIN 325 MG TABS Take one by mouth daily ASPIRIN 11673299573 Active Jasmyn Mary LPN Active NOVOLOG 100 UNIT/ML SOLN per pump INSULIN ASPART 99302527132 Active Jasmyn Mary LPN Active RANEXA 1000 MG [id number] 1 by mouth every 12 hrs RANOLAZINE 13052386891 Active Jasmyn Mary LPN Active REGLAN 10 MG TABS 1 tab by mouth after meals and at hs daily METOCLOPRAMIDE HCL 77177541461 Active Jasmyn Mary LPN Active KLOR-CON M20 20 MEQ CR-TABS Take one by mouth daily POTASSIUM CHLORIDE JEANINE CR 54505617614 Active Jasmyn Mary LPN Active WELLBUTRIN 100 MG TABS Take one by mouth 3 times daily, morning, afternoon and evening BUPROPION HCL 84744752504 Active Jasmyn Mary LPN Active CYMBALTA 60 MG CPEP 2 caps by mouth daily DULOXETINE HCL 47038483795 Active Jasmyn Usman COMPLIANCE MGR Active RAMIPRIL 10 MG CAPS Take one by mouth daily RAMIPRIL 39716120489 Active Jasmyn Mary LPN Active PERCOCET 10-325 MG TABS one by mouth every 6 hrs as needed for pain OXYCODONE-ACETAMINOPHEN 54121005325 Active Jasmyn Mary LPN Active NITROSTAT 0.4 MG SUBL 1 tab under tongue every 5 min as need for cx pain. not to exceet total of 3 doses in 15 min NITROGLYCERIN 81217445930 Active Jasmyn Mary LPN Active LIPITOR 40 MG TABS take at bedtime LIPITOR 40 MG TABS 800656 ATORVASTATIN CALCIUM Inactive ULTRAM ER 200 MG [id number] Take one by mouth daily ULTRAM ER 200 MG [id number] TRAMADOL HCL Inactive GABAPENTIN 300 MG CAPS by mouth twice a day GABAPENTIN 300 MG CAPS 839935 GABAPENTIN Inactive MS CONTIN 15 MG [id number] 1 tab by mouth every 12 hrs MS CONTIN 15 MG [id number] MORPHINE SULFATE Inactive LEXAPRO 20 MG TABS Take one by mouth daily LEXAPRO 20 MG TABS 328820 ESCITALOPRAM OXALATE Inactive MOBIC 15 MG TABS Take one by mouth daily MOBIC 15 MG TABS 601773 MELOXICAM Inactive Advance Directives Directive Description Start [...] /min Heart rate weight E&M - 3141-9 323 [lb_av] Weight Measured Diagnostic Results Date Name [...] HGBA1C - Chemistry sodium, serum 141 mmol/L 442-972 9184/04/20 potassium, serum 4.8 mmol/L 3.5-5.2 chloride, serum 101 mmol/L 98-107 carbon dioxide, venous blood 34.5 mmol/L 21.0-32.0 blood glucose 94 mg/dL 65-110 calcium, serum 9.0 mg/dL 8.5-10.1 urea nitrogen, blood 17 mg/dL 7-18 creatinine, serum 1.20 mg/dL 0.60-1.30 hemoglobin A1C, blood, as % of total hemoglobin 7.8 % 4.3-6.0 Lab Report: HGBA1C - Chemistry hemoglobin A1C, blood, as % of total hemoglobin 7.4 % 4.3-6.0 Office Visit: Diabetes Visit - [...] mg/dL Encounters Code Encounter Date Provider Facility CPT-37011 Level 4 Est. [facility]:14:[facility] CPT-78065 Level 3 Est. Patient 14:44:29 CDT [facility] CPT-15512 Level 4 Est. [facility] 15:15:[facility] Level 3 Est. Patient 15:07:35 CDT [facility] CPT-60984 Level 4 Est. Patient 15:40:05 CDT [facility] CPT-95440 Level 4 Est. Patient 15:32:36 MFT [facility] CPT-32889 Level 5 Est. Patient 17:33:32 MFT [facility] CPT-91803 Level 5 Est. Patient 15:05:09 CDT [facility]29269 Level 4 Est. Patient 15:52:02 CDT [facility] CPT-95676 Level 4 Est. Patient 16:22:51 CDT [facility] CPT-94895 Level 4 Est. Patient 17:41:26 MFT [facility] CPT-21251 Level 3 Est. Patient 17:42:24 CDT [facility] CPT-14627 Level 3 Est. Patient 14:01:37 CDT Evelyne Morales [facility] CPT-44187 Level 3 Est. Patient 16:13:45 CDT [facility] CPT-83315 Level 4 Est. Patient 17:16:06 CDT [facility] CPT-74881 Level 5 Est. Patient 16:08:43 CDT [facility]
--- OUTSIDE RECORDS SUMMARY | 2018-07-23 12:10 | XMS REPORT | Clinical Summary ---
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, type I [juvenile type], uncontrolled DIABETIC HYPOGLYCEMIA, TYPE I, UNCONTROLLED 250.83 Active 12/10 Maliheh Ziglari DIRECTOR CPG Diabetes mellitus with other specified manifestations, type I [juvenile type], uncontrolled Continuous insulin infusion pump V46.9 Active Elias Mercadoglari DIRECTOR CPG Unspecified machine and device dependence Medication List Medication Instructions Start Date Stop Date Generic Name NDC Status Provider Patient Instruction ONETOUCH ULTRA BLUE STRP check blood sugars 6x/day GLUCOSE BLOOD 27110515267 Active [facility] Ziglari DIRECTOR CPG Active LEVOTHYROXINE SODIUM 50 MCG ORAL TABS Take one by mouth daily LEVOTHYROXINE SODIUM 01125640957 Active [facility] Ziglari DIRECTOR CPG Active LEVOTHYROXINE SODIUM 25 MCG TABS Take one by mouth daily LEVOTHYROXINE SODIUM 73645349388 No Longer [facility] Active GABAPENTIN 600 MG TABS by mouth twice a day GABAPENTIN 20921741218 No Longer [facility]PG Active LATUDA 20 MG TABS Take one by mouth daily LURASIDONE HCL 25233830327 No Longer [facility]PG Active RISPERDAL 2 MG ORAL TABS Take one by mouth daily RISPERIDONE 11069199014 [facility] CPG Active HUMALOG 100 UNIT/ML SOLN 100-200u/day with insulin pump INSULIN LISPRO (HUMAN) 92269161919 [facility] CPG Active MOBIC 15 MG TABS Take one by mouth daily MELOXICAM 20860695321 No Longer [facility] CPG Active LEXAPRO 20 MG TABS Take one by mouth daily ESCITALOPRAM OXALATE 72016220037 No Longer [facility] CPG Active MS CONTIN 30 MG CR-TABS by mouth twice a day MORPHINE SULFATE 56859760921 [facility] CPG Active MS CONTIN 15 MG [id number] 1 tab by mouth every 12 hrs MORPHINE SULFATE 91156734635 No Longer [facility] CPG Active GABAPENTIN 300 MG CAPS by mouth twice a day GABAPENTIN 23231642342 No Longer Active [facility] Ziglari DIRECTOR CPG Active CYCLOBENZAPRINE HCL 10 MG TABS Take 1 tab every 6 hours PRN CYCLOBENZAPRINE HCL 21935201691 Active Lala Deras CRA OFFICER Active AMBIEN 10 MG TABS take 1/2 tab daily at bedtime prn ZOLPIDEM TARTRATE 64577109343 Active [facility] DIRECTOR CPG Active KLOR-CON 10 10 MEQ CR-TABS Take one by mouth daily POTASSIUM CHLORIDE 37869634428 Active [facility] Rogelioglari DIRECTOR CPG Active FUROSEMIDE 40 MG TABS Take one and 1/2 tabs by mouth daily FUROSEMIDE 74495611033 Active [facility] Rogelioari DIRECTOR CPG Active ULTRAM ER 200 MG [id number] Take one by mouth daily TRAMADOL HCL 67582942147 No Longer Active [facility] DIRECTOR CPG Active SYMBICORT 160-4.5 MCG/ACT AERO 2 puffs bid BUDESONIDE- FORMOTEROL FUMARATE 16396076705 Active [facility] Rogelioglari DIRECTOR CPG Active PREVACID 30 MG CPDR Take one by mouth twice daily LANSOPRAZOLE 27692400825 Active [facility] DIRECT[facility] CPG Active ZETIA 10 MG TABS Take one by mouth daily EZETIMIBE 12741064785 Active [facility] Rogelioglari DIRECTOR CPG Active GLUCAGON EMERGENCY 1 MG KIT Inject for low blood sugar GLUCAGON (RDNA) 42912016405 Active [facility] Rogelioglari DIRECTOR CPG Active CARVEDILOL 25 MG TABS Take one by mouth twice daily CARVEDILOL 60875331214 Active [facility] Rogelioglari DIRECTOR CPG Active ATORVASTATIN CALCIUM 80 MG TABS Take one by mouth daily ATORVASTATIN CALCIUM 02677487230 Active [facility] Rogelioglari DIRECTOR CPG Active LIPITOR 40 MG TABS take at bedtime ATORVASTATIN CALCIUM 99680576572 No Longer Active [facility] Rogelioglari DIRECTOR CPG Active ASPIRIN 325 MG TABS Take one by mouth daily ASPIRIN 83830066688 Active Jasmyn Mary LPN Active NOVOLOG 100 UNIT/ML SOLN per pump INSULIN ASPART 31310440657 No Longer Active Jasmyn Mary LPN Active RANEXA 1000 MG [id number] 1 by mouth every 12 hrs RANOLAZINE 27164734981 Active Jasmyn Mary LPN Active REGLAN 10 MG TABS 1 tab by mouth after meals and at hs daily METOCLOPRAMIDE HCL 01506073910 Active Jasmyn Mary LPN Active KLOR-CON M20 20 MEQ CR-TABS Take one by mouth daily POTASSIUM CHLORIDE JEANINE CR 29168815604 Active Jasmyn Mary CRA OFFICER Active WELLBUTRIN 100 MG TABS Take one by mouth 3 times daily, morning, afternoon and evening BUPROPION HCL 31103429311 Active Jasmyn Mary CRA OFFICER Active CYMBALTA 60 MG CPEP 2 caps by mouth daily DULOXETINE HCL 79175487736 Active Jasmyn Mary CRA OFFICER Active RAMIPRIL 10 MG CAPS Take one by mouth daily RAMIPRIL 41801809365 Active Jasmyn Mary CRA OFFICER Active PERCOCET 10-325 MG TABS one by mouth every 6 hrs as needed for pain OXYCODONE-ACETAMINOPHEN 62060021426 Active Jasmyn Mary LPN Active NITROSTAT 0.4 MG SUBL 1 tab under tongue every 5 min as need for cx pain. not to exceet total of 3 doses in 15 min NITROGLYCERIN 81782512598 Active Jasmyn Mary LPN Active LIPITOR 40 MG TABS take at bedtime LIPITOR 40 MG TABS 124506 ATORVASTATIN CALCIUM Inactive ULTRAM ER 200 MG [id number] Take one by mouth daily ULTRAM ER 200 MG [id number] TRAMADOL HCL Inactive GABAPENTIN 300 MG CAPS by mouth twice a day GABAPENTIN 300 MG CAPS 377685 GABAPENTIN Inactive MS CONTIN 15 MG [id number] 1 tab by mouth every 12 hrs MS CONTIN 15 MG [id number] MORPHINE SULFATE Inactive LEXAPRO 20 MG TABS Take one by mouth daily LEXAPRO 20 MG TABS 644868 ESCITALOPRAM OXALATE Inactive MOBIC 15 MG TABS Take one by mouth daily MOBIC 15 MG TABS 368360 MELOXICAM Inactive LATUDA 20 MG TABS Take one by mouth daily LATUDA 20 MG TABS LURASIDONE HCL Inactive GABAPENTIN 600 MG TABS by mouth twice a day GABAPENTIN 600 MG TABS 537115 GABAPENTIN Inactive LEVOTHYROXINE SODIUM 25 MCG TABS Take one by mouth daily LEVOTHYROXINE SODIUM 25 MCG TABS 874596 LEVOTHYROXINE SODIUM Inactive Advance Directives Directive Description Start Date PERMISSION TO SHARE Immunizations Vaccine Administration Date Value Standard Description influenza immunization (Flu Vax) has been administered 04/26/2015 influenza virus vaccine, unspecified formulation influenza immunization (Flu Vax) has been administered 03/31/2014 influenza virus vaccine, unspecified formulation influenza immunization (Flu Vax) has been administered 05/01/2013 influenza virus vaccine, unspecified formulation pneumococcal immunization administered -16 pneumococcal polysaccharide vaccine, 23 valent pneumococcal immunization [...] HGBA1C - Chemistry sodium, serum 140 mmol/L 903-516 7218/07/29 potassium, serum 4.6 mmol/L 3.5-5.2 chloride, serum 102 mmol/L 98-107 carbon dioxide, venous blood 33.3 mmol/L 21.0-32.0 blood glucose 177 mg/dL 65-110 calcium, serum 8.7 mg/dL 8.5-10.1 urea nitrogen, blood 19 mg/dL 7-18 creatinine, serum 1.20 mg/dL 0.60-1.30 hemoglobin A1C, blood, as % of total hemoglobin 7.6 % 4.3-6.0 sodium, serum 138 mmol/L 880-547 1993/02/09 potassium, serum 4.5 mmol/L 3.5-5.2 chloride, serum [...] 7.9 % 4.3-6.0 sodium, serum 138 mmol/L 362-612 2837/11/04 potassium, serum 3.9 mmol/L 3.5-5.2 chloride, serum [...] mg/dL Encounters Code Encounter Date Provider Facility CPT-34197 Level 4 Est. Patient 17:39:08 CDT [facility] CPT-34085 Level 3 Est. 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 Patient 18:06:10 [place] [facility] [place]-8[place]14 Level 4 Est. Patient 15:14:20 [place] [facility] [place]-70079 Level 3 Est. Patient 14:44:29 [place] [facility] [place]PT-02901 Level 4 Est. 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 Patient 15:07:35 [place] [facility] [place]PT-02789 Level 4 Est. Patient 15:40:05 [place] [facility] [place]PT-81068 Level 4 Est. 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 Patient 15:05:09 CDT [facility] Level 4 Est. Patient 15:52:02 CD[place] [facility] [place]PT-84044 Level 4 Est. Patient 16:22:51 CD[place] [facility] [place]PT-63930 Level 4 Est. 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 Patient 17:42:24 CD[place] [facility] [place]PT-81267 Level 3 Est. Patient 14:01:37 CDT [facility] CPT-81051 Level 3 Est. Patient 16:13:45 CD[place] [facility] [place]PT-05452 Level 4 Est. Patient 17:16:06 CD[place] [facility] [place]PT-62215 Level 5 Est. 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
--- OUTSIDE RECORDS SUMMARY | 2018-07-23 12:12 | XMS REPORT | Clinical Summary ---
Author Author Admin, E Organization [facility] Address Unknown Phone Unavailable Allergies, Adverse Reactions, [...] TYPE I, UNCONTROLLED 250.03 Active Malgriffin Ziglari COOK RELIEF Diabetes mellitus without mention of complication, type I [juvenile type], uncontrolled DIABETIC HYPOGLYCEMIA, TYPE I, UNCONTROLLED 250.83 Active 12/10 Malgriffin Ziglari COOK RELIEF Diabetes mellitus with other specified manifestations, type I [juvenile type], uncontrolled Continuous insulin infusion pump V46.9 Active Elias Malagon COOK RELIEF Unspecified machine and device dependence Medication List Medication Instructions Start Date Stop Date Generic Name NDC Status Provider Patient Instruction NOVOLOG 100 UNIT/ML SC SOLN 100-200u/day INSULIN ASPART 00941071728 Active [facility] Ziglari COOK RELIEF Active HUMALOG 100 UNIT/ML SOLN 100-200u/day with insulin pump INSULIN LISPRO (HUMAN) 49573826826 No Longer Active [facility] Ziglari COOK RELIEF Active COREG 12.5 MG ORAL TABS by mouth twice a day CARVEDILOL 54990956501 [facility] Active MS CONTIN 30 MG CR-TABS by mouth twice a day MORPHINE SULFATE 31009213616 No Longer [facility] Active [employer] BLUE STRP check blood sugars 6x/day GLUCOSE BLOOD 99022365238 Active [facility] Ziglari COOK RELIEF Active LEVOTHYROXINE SODIUM 50 MCG ORAL TABS Take one by mouth daily LEVOTHYROXINE SODIUM 51328340457 [facility] Active LEVOTHYROXINE SODIUM 25 MCG TABS Take one by mouth daily LEVOTHYROXINE SODIUM 59464625783 No Longer [facility] Active GABAPENTIN 600 MG TABS by mouth twice a day GABAPENTIN 22499063596 No Longer [facility] Active LATUDA 20 MG TABS Take one by mouth daily LURASIDONE HCL 81920625980 No Longer [facility] Active RISPERDAL 2 MG ORAL TABS Take one by mouth daily RISPERIDONE 91642039431 [facility] Active MOBIC 15 MG TABS Take one by mouth daily MELOXICAM 47957883767 No Longer Active [facility] Ziglari COOK RELIEF Active LEXAPRO 20 MG TABS Take one by mouth daily ESCITALOPRAM OXALATE 26398664275 No Longer Active [facility] Ziglari COOK RELIEF Active MS CONTIN 15 MG [id number] 1 tab by mouth every 12 hrs MORPHINE SULFATE 13879114942 No Longer Active [facility] Rogelioglari COOK RELIEF Active GABAPENTIN 300 MG CAPS by mouth twice a day GABAPENTIN 79859888011 No Longer Active [facility] Rogelioglari COOK RELIEF Active CYCLOBENZAPRINE HCL 10 MG TABS Take 1 tab every 6 hours PRN CYCLOBENZAPRINE HCL 65074873507 Active Lala Deras TUTOR COORDINATOR Active AMBIEN 10 MG TABS take 1/2 tab daily at bedtime prn ZOLPIDEM TARTRATE 31507155681 Active [facility] Rogelioglari COOK RELIEF Active KLOR-CON 10 10 MEQ CR-TABS Take one by mouth daily POTASSIUM CHLORIDE 10784021362 Active [facility] Rogelioglari COOK RELIEF Active FUROSEMIDE 40 MG TABS Take one and 1/2 tabs by mouth daily FUROSEMIDE 40847024600 Active [facility] Mercadoari COOK RELIEF Active ULTRAM ER 200 MG [id number] Take one by mouth daily TRAMADOL HCL 45114233622 No Longer Active [facility] Rogelioglari COOK RELIEF Active SYMBICORT 160-4.5 MCG/ACT AERO 2 puffs bid BUDESONIDE- FORMOTEROL FUMARATE 14016152377 Active [facility] Rogelioglari COOK RELIEF Active PREVACID 30 MG CPDR Take one by mouth twice daily LANSOPRAZOLE 81902767375 [facility] COOK RELIEF Active ZETIA 10 MG TABS Take one by mouth daily EZETIMIBE 30426457333 Active [facility] Rogelioglari COOK RELIEF Active GLUCAGON EMERGENCY 1 MG KIT Inject for low blood sugar GLUCAGON (RDNA) 56780060168 Active [facility] Rogelioglari COOK RELIEF Active ATORVASTATIN CALCIUM 80 MG TABS Take one by mouth daily ATORVASTATIN CALCIUM 72844206934 Active [facility] Rogelioglari COOK RELIEF Active LIPITOR 40 MG TABS take at bedtime ATORVASTATIN CALCIUM 47720321077 No Longer [facility] COOK RELIEF Active ASPIRIN 325 MG TABS Take one by mouth daily ASPIRIN 96211706443 Active Jasmyn Mary TUTOR COORDINATOR Active NOVOLOG 100 UNIT/ML SOLN per pump INSULIN ASPART 15615390690 No Longer Active Jasmyn Mary TUTOR COORDINATOR Active RANEXA 1000 MG [id number] 1 by mouth every 12 hrs RANOLAZINE 65879192357 Active Jasmyn Mary TUTOR COORDINATOR Active REGLAN 10 MG TABS 1 tab by mouth after meals and at hs daily METOCLOPRAMIDE HCL 77281235338 Active Jasmyn Mary TUTOR COORDINATOR Active KLOR-CON M20 20 MEQ CR-TABS Take one by mouth daily POTASSIUM CHLORIDE JEANINE CR 44741325166 Active Jasmyn Mary TUTOR COORDINATOR Active WELLBUTRIN 100 MG TABS Take one by mouth 3 times daily, morning, afternoon and evening BUPROPION HCL 57137677597 Active Jasmyn Mary TUTOR COORDINATOR Active CYMBALTA 60 MG CPEP 2 caps by mouth daily DULOXETINE HCL 31868853167 Active Jasmyn Mary JOSHUA Active RAMIPRIL 10 MG CAPS Take one by mouth daily RAMIPRIL 15603021169 Active Jasmyn Mary TUTOR COORDINATOR Active PERCOCET 10-325 MG TABS one by mouth every 6 hrs as needed for pain OXYCODONE-ACETAMINOPHEN 89807129129 Active Jasmyn Mary TUTOR COORDINATOR Active NITROSTAT 0.4 MG SUBL 1 tab under tongue every 5 min as need for cx pain. not to exceet total of 3 doses in 15 min NITROGLYCERIN 88141749221 Active Jasmyn Mary JOSHUA Active LIPITOR 40 MG TABS take at bedtime LIPITOR 40 MG TABS 169284 ATORVASTATIN CALCIUM Inactive ULTRAM ER 200 MG [id number] Take one by mouth daily ULTRAM ER 200 MG [id number] TRAMADOL HCL Inactive GABAPENTIN 300 MG CAPS by mouth twice a day GABAPENTIN 300 MG CAPS 891067 GABAPENTIN Inactive MS CONTIN 15 MG [id number] 1 tab by mouth every 12 hrs MS CONTIN 15 MG [id number] MORPHINE SULFATE Inactive LEXAPRO 20 MG TABS Take one by mouth daily LEXAPRO 20 MG TABS 143880 ESCITALOPRAM OXALATE Inactive MOBIC 15 MG TABS Take one by mouth daily MOBIC 15 MG TABS 075364 MELOXICAM Inactive LATUDA 20 MG TABS Take one by mouth daily LATUDA 20 MG TABS LURASIDONE HCL Inactive GABAPENTIN 600 MG TABS by mouth twice a day GABAPENTIN 600 MG TABS 590119 GABAPENTIN Inactive LEVOTHYROXINE SODIUM 25 MCG TABS Take one by mouth daily LEVOTHYROXINE SODIUM 25 MCG TABS 336982 LEVOTHYROXINE SODIUM Inactive MS CONTIN 30 MG [...] Panel - Chemistry sodium, serum 138 mmol/L 006-217 5828/11/30 potassium, serum 4.9 mmol/L 3.5-5.2 chloride, serum 102 mmol/L 98-107 carbon dioxide, venous blood 30.5 mmol/L 21.0-32.0 blood glucose 212 mg/dL 65-110 calcium, serum 9.0 mg/dL 8.5-10.1 urea nitrogen, blood 18 mg/dL 7-18 creatinine, serum 1.28 mg/dL 0.55-1.30 Lab Report: Basic Metabolic Panel, HGBA1C - Chemistry sodium, serum 138 mmol/L 805-561 6847/08/24 potassium, serum 4.6 mmol/L 3.5-5.2 chloride, serum [...] mg/dL Encounters Code Encounter Date Provider Facility CPT-34018 Level 4 Est. Patient 17:42:49 LEASING ASSOCIATE [facility] [place] CPT-51953 Level 4 Est. Patient 16:31:44 LEASING ASSOCIATE [facility] [place] CPT-43721 Level 3 Est. Patient 13:47:02 CDT [facility] [place] CPT-56887 Level 4 Est. Patient 17:39:08 CDT [facility] [place] CPT-02279 Level 3 Est. Patient 16:08:05 LEASING ASSOCIATE [facility] [place] CPT-94901 Level 4 Est. Patient 16:28:18 LEASING [place]OCI[place] [facility] [place]92 Level 4 Est. Patient 18:06:10 [place] [facility] [place]PT-34155 Level 4 Est. Patient 15:14:20 [place] [facility] [place] CPT-53161 Level 3 Est. Patient 14:44:29 [place] [facility] [place]PT-88382 Level 4 Est. Patient 15:15:35 LEASING ASSOCIATE [facility] [place]PT-71326 Level 3 Est. Patient 15:07:35 CDT Elias Malagon [facility] CPT-93138 Level 4 Est. Patient 15:40:05 CDT Elias Malagon [facility] CPT-46953 Level 4 Est. Patient 15:32:36 LEASING ASSOCIATE Elias Malagon [facility] CPT-38227 Level 5 Est. Patient 17:33:32 LEASING ASSOCIATE Elias Malagon [facility] CPT-11890 Level 5 Est. Patient 15:05:09 [facility] Level 4 Est. Patient 15:52:02 [facility] Level 4 Est. Patient 16:22:51 CDT [facility]PT[facility]17566 Level 4 Est. Patient 17:41:26 LEASING ASSOCIATE [facility] CPT-24838 Level 3 Est. Patient 17:42:24 [facility] CPT-66875 Level 3 Est. Patient 14:01:37 CDT Evelyne Morales [facility] CPT-66156 Level 3 Est. Patient 16:13:45 [facility] Level 4 Est. Patient 17:16:06 [facility] CPT-28071 Level 5 Est. Patient 16:08:43 CD[place] [facility] [place] Procedures Code Procedure Name Date Entry Date Standard Description CPT-43392 HGBA1C - LAB USE ONLY 16:12:38 LEASING ASSOCIATE CPT-58969 BMP - LAB USE ONLY 16:12:38 LEASING ASSOCIATE CPT-72603 Venipuncture Draw Fee 16:12:38 LEASING ASSOCIATE CPT-35583 HGBA1C - LAB USE ONLY 09:42:26 CDT CPT-58545 BMP - LAB USE ONLY 09:42:26 CDT CPT-63189 Venipuncture Draw Fee 09:42:26 CDT CPT-46932 Prevnar 13 16:55:53 LEASING ASSOCIATE CPT-30734 Immunization Single Admin 16:55:53 LEASING ASSOCIATE CPT-99524 Pneumovax 16:04:52 LEASING ASSOCIATE
--- OUTSIDE RECORDS SUMMARY | 2018-07-23 12:13 | XMS REPORT | Clinical Summary ---
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 Active 12/10 Maliheh Ziglari NET DEVELOPER SOFTWARE ENGINEER C Diabetes mellitus with other specified manifestations, type I [juvenile type], uncontrolled Continuous insulin infusion pump V46.9 Active Andreaihvenkata Mercadoglari NET DEVELOPER SOFTWARE ENGINEER C Unspecified machine and device dependence Medication List Medication Instructions Start Date Stop Date Generic Name NDC Status Provider Patient Instruction ONETOUCH ULTRA BLUE STRP check blood sugars 6x/day GLUCOSE BLOOD 10946886619 Active [facility] Ziglari NET DEVELOPER SOFTWARE ENGINEER C Active LEVOTHYROXINE SODIUM 50 MCG ORAL TABS Take one by mouth daily LEVOTHYROXINE SODIUM 35705040665 Active [facility] Ziglari NET DEVELOPER SOFTWARE ENGINEER C Active LEVOTHYROXINE SODIUM 25 MCG TABS Take one by mouth daily LEVOTHYROXINE SODIUM 27203416351 No Longer Active [facility] Ziglari NET DEVELOPER SOFTWARE ENGINEER C Active GABAPENTIN 600 MG TABS by mouth twice a day GABAPENTIN 71970513364 No Longer Active [facility] Ziglari NET DEVELOPER SOFTWARE ENGINEER C Active LATUDA 20 MG TABS Take one by mouth daily LURASIDONE HCL 63907352823 No [facility] DEVELOPER SOFTWARE ENGINEER [facility] Active RISPERDAL 2 MG ORAL TABS Take one by mouth daily RISPERIDONE 12800111131 Active [facility] Ziglari NET DEVELOPER SOFTWARE ENGINEER C Active HUMALOG 100 UNIT/ML SOLN 100-200u/day with insulin pump INSULIN LISPRO (HUMAN) 99152446056 Active [facility] Ziglari NET DEVELOPER SOFTWARE ENGINEER C Active MOBIC 15 MG TABS Take one by mouth daily MELOXICAM 70421383070 No Longer Active [facility] Ziglari NET DEVELOPER SOFTWARE ENGINEER C Active LEXAPRO 20 MG TABS Take one by mouth daily ESCITALOPRAM OXALATE 05240109255 No Longer Active [facility] Ziglari NET DEVELOPER SOFTWARE ENGINEER C Active MS CONTIN 30 MG CR-TABS by mouth twice a day MORPHINE SULFATE 98426968280 Active [facility] Ziglari NET DEVELOPER SOFTWARE ENGINEER C Active MS CONTIN 15 MG [id number]-FWA 1 tab by mouth every 12 hrs MORPHINE SULFATE 23392238541 No Longer Active [facility] Ziglari NET DEVELOPER SOFTWARE ENGINEER C Active GABAPENTIN 300 MG CAPS by mouth twice a day GABAPENTIN 89755173612 No Longer Active [facility] Ziglari NET DEVELOPER SOFTWARE ENGINEER C Active CYCLOBENZAPRINE HCL 10 MG TABS Take 1 tab every 6 hours PRN CYCLOBENZAPRINE HCL 91431008260 Active Lala Deras INFRASTRUCTURE SECURITY ARCHITECT Active AMBIEN 10 MG TABS take 1/2 tab daily at bedtime prn ZOLPIDEM TARTRATE 21740736707 Active [facility] NET DEVELOPER SOFTWARE ENGINEER C Active KLOR-CON 10 10 MEQ CR-TABS Take one by mouth daily POTASSIUM CHLORIDE 71177334167 Active [facility] Rogelioglari NET DEVELOPER SOFTWARE ENGINEER C Active FUROSEMIDE 40 MG TABS Take one and 1/2 tabs by mouth daily FUROSEMIDE 28819688358 Active [facility] NET DEVELOPER SOFTWARE ENGINEER C Active ULTRAM ER 200 MG HL80D-VNM Take one by mouth daily TRAMADOL HCL 84286598518 No Longer Active [facility] NET DEVELOPER SOFTWARE ENGINEER C Active SYMBICORT 160-4.5 MCG/ACT AERO 2 puffs bid BUDESONIDE- FORMOTEROL FUMARATE 91190683189 Active [facility] Rogelioglari NET DEVELOPER SOFTWARE ENGINEER C Active PREVACID 30 MG CPDR Take one by mouth twice daily LANSOPRAZOLE 33507267424 Active [facility] NET DEVELOPER SOFTWARE ENGINEER C Active ZETIA 10 MG TABS Take one by mouth daily EZETIMIBE 88371240306 Active [facility] Rogelioglari NET DEVELOPER SOFTWARE ENGINEER C Active GLUCAGON EMERGENCY 1 MG KIT Inject for low blood sugar GLUCAGON (RDNA) 12331915030 Active [facility] Rogelioglari NET DEVELOPER SOFTWARE ENGINEER C Active CARVEDILOL 25 MG TABS Take one by mouth twice daily CARVEDILOL 24019081243 Active [facility] Rogelioglari NET DEVELOPER SOFTWARE ENGINEER C Active ATORVASTATIN CALCIUM 80 MG TABS Take one by mouth daily ATORVASTATIN CALCIUM 05763383541 Active [facility] Rogelioglari NET DEVELOPER SOFTWARE ENGINEER C Active LIPITOR 40 MG TABS take at bedtime ATORVASTATIN CALCIUM 47632894817 No Longer Active [facility] Rogelioglari NET DEVELOPER SOFTWARE ENGINEER C Active ASPIRIN 325 MG TABS Take one by mouth daily ASPIRIN 10740522909 Active Jasmyn Mary LPN Active NOVOLOG 100 UNIT/ML SOLN per pump INSULIN ASPART 69014828220 No Longer Active Jasmyn Mary LPN Active RANEXA 1000 MG [id number] 1 by mouth every 12 hrs RANOLAZINE 06073176265 Active Jasmyn Mary LPN Active REGLAN 10 MG TABS 1 tab by mouth after meals and at hs daily METOCLOPRAMIDE HCL 81479604676 Active Jasmyn Mary INFRASTRUCTURE SECURITY ARCHITECT Active KLOR-CON M20 20 MEQ CR-TABS Take one by mouth daily POTASSIUM CHLORIDE JEANINE CR 84778321909 Active Jasmyn Mary INFRASTRUCTURE SECURITY ARCHITECT Active WELLBUTRIN 100 MG TABS Take one by mouth 3 times daily, morning, afternoon and evening BUPROPION HCL 76966902242 Active Jasmyn Mary INFRASTRUCTURE SECURITY ARCHITECT Active CYMBALTA 60 MG CPEP 2 caps by mouth daily DULOXETINE HCL 78858736850 Active Jasmyn Mary INFRASTRUCTURE SECURITY ARCHITECT Active RAMIPRIL 10 MG CAPS Take one by mouth daily RAMIPRIL 76558258879 Active Jasmyn Mary INFRASTRUCTURE SECURITY ARCHITECT Active PERCOCET 10-325 MG TABS one by mouth every 6 hrs as needed for pain OXYCODONE-ACETAMINOPHEN 16719111140 Active Jasmyn Mary INFRASTRUCTURE SECURITY ARCHITECT Active NITROSTAT 0.4 MG SUBL 1 tab under tongue every 5 min as need for cx pain. not to exceet total of 3 doses in 15 min NITROGLYCERIN 00964910140 Active Jasmyn Mary LPN Active LIPITOR 40 MG TABS take at bedtime LIPITOR 40 MG TABS 051876 ATORVASTATIN CALCIUM Inactive ULTRAM ER 200 MG IH90E-ECG Take one by mouth daily ULTRAM ER 200 MG [id number] TRAMADOL HCL Inactive GABAPENTIN 300 MG CAPS by mouth twice a day GABAPENTIN 300 MG CAPS 242494 GABAPENTIN Inactive MS CONTIN 15 MG DO46P-TGW 1 tab by mouth every 12 hrs MS CONTIN 15 MG ED98E-PNR MORPHINE SULFATE Inactive LEXAPRO 20 MG TABS Take one by mouth daily LEXAPRO 20 MG TABS 040366 ESCITALOPRAM OXALATE Inactive MOBIC 15 MG TABS Take one by mouth daily MOBIC 15 MG TABS 190025 MELOXICAM Inactive LATUDA 20 MG TABS Take one by mouth daily LATUDA 20 MG TABS LURASIDONE HCL Inactive GABAPENTIN 600 MG TABS by mouth twice a day GABAPENTIN 600 MG TABS 801741 GABAPENTIN Inactive LEVOTHYROXINE SODIUM 25 MCG TABS Take one by mouth daily LEVOTHYROXINE SODIUM 25 MCG TABS 913385 LEVOTHYROXINE SODIUM Inactive Advance Directives Directive Description [...] HGBA1C - Chemistry sodium, serum 140 mmol/L 493-548 7263/07/29 potassium, serum 4.6 mmol/L 3.5-5.2 chloride, serum 102 mmol/L 98-107 carbon dioxide, venous blood 33.3 mmol/L 21.0-32.0 blood glucose 177 mg/dL 65-110 calcium, serum 8.7 mg/dL 8.5-10.1 urea nitrogen, blood 19 mg/dL 7-18 creatinine, serum 1.20 mg/dL 0.60-1.30 hemoglobin A1C, blood, as % of total hemoglobin 7.6 % 4.3-6.0 sodium, serum 138 mmol/L 862-330 8883/02/09 potassium, serum 4.5 mmol/L 3.5-5.2 chloride, serum [...] 7.9 % 4.3-6.0 sodium, serum 138 mmol/L 094-644 4964/11/04 potassium, serum 3.9 mmol/L 3.5-5.2 chloride, serum [...] mg/dL Encounters Code Encounter Date Provider Facility CPT-03788 Level 4 Est. Patient 17:39:08 CDT Elias Malagon [facility] CPT-06100 Level 3 Est. Patient 16:08:05 OUTSIDE SOLAR SALES CONSULTANT Elias Malagon [facility] CPT-58050 Level 4 Est. Patient 16:28:18 OUTSIDE SOLAR SALES CONSULTANT [facility] Level 4 Est. Patient 18:06:10 [facility] CPT-38557 Level 4 Est. Patient 15:14:20 CDT [facility] CPT-98296 Level 3 Est. Patient 14:44:29 CDT [facility] CPT-86180 Level 4 Est. Patient 15:15:35 OUTSIDE SOLAR SALES CONSULTANT [facility] CPT-04884 Level 3 Est. Patient 15:07:35 [facility]T [facility] CPT-88842 Level 4 Est. Patient 15:40:05 CDT [facility] CPT-88166 Level 4 Est. Patient 15:32:36 OUTSIDE SOLAR SALES CONSULTANT [facility] CPT-14967 Level 5 Est. Patient 17:33:32 OUTSIDE SOLAR SALES CONSULTANT Andreavenkata Malagon [facility] CPT-28321 Level 5 Est. Patient 15:05:09 CDT [facility] CPT-80849 Level 4 Est. Patient 15:52:02 [facility] CPT-40610 Level 4 Est. Patient 16:22:51 CDT [facility] CPT-89985 Level 4 Est. Patient 17:41:26 OUTSIDE SOLAR SALES CONSULTANT [facility] CPT-75009 Level 3 Est. Patient 17:42:24 CDT [facility] CPT-87536 Level 3 Est. Patient 14:01:37 [facility]T [facility]PT-239[facility] Level 3 Est. Patient 16:13:45 CDT [facility] CPT-37914 Level 4 Est. Patient 17:16:06 CDT [facility] CPT-08728 Level 5 Est. Patient 16:08:43 CDT [facility] Procedures Code Procedure Name Date Entry Date Standard Description CPT-49641 Prevnar 13 16:55:53 OUTSIDE SOLAR SALES CONSULTANT CPT-34415 Immunization Single Admin 16:55:53 OUTSIDE SOLAR SALES CONSULTANT CPT-13634 Pneumovax 16:04:52 OUTSIDE SOLAR SALES CONSULTANT
--- OUTSIDE RECORDS SUMMARY | 2018-07-23 12:14 | XMS REPORT | Clinical Summary ---
Author Author Admin, GARY Organization [facility] Address Unknown Phone Unavailable Allergies, Adverse Reactions, [...] TYPE I, UNCONTROLLED 250.03 Active Maliheh Ziglari CHURN DRILLER HELPER Diabetes mellitus without mention of complication, type I [juvenile type], uncontrolled DIABETIC HYPOGLYCEMIA, TYPE I, UNCONTROLLED 250.83 Active 12/10 Malgriffin Ziglari CHURN DRILLER HELPER Diabetes mellitus with other specified manifestations, type I [juvenile type], uncontrolled Continuous insulin infusion pump V46.9 Active Elias Malagon CHURN DRILLER HELPER Unspecified machine and device dependence Medication List Medication Instructions Start Date Stop Date Generic Name NDC Status Provider Patient Instruction NOVOLOG 100 UNIT/ML SC SOLN 100-200u/day INSULIN ASPART 27864825629 Active [facility] Ziglari CHURN DRILLER HELPER Active HUMALOG 100 UNIT/ML SOLN 100-200u/day with insulin pump INSULIN LISPRO (HUMAN) 66381008116 No Longer Active [facility] Ziglari CHURN DRILLER HELPER Active COREG 12.5 MG ORAL TABS by mouth twice a day CARVEDILOL 80369470500 [facility] CHURN DRILLER HELPER Active MS CONTIN 30 MG CR-TABS by mouth twice a day MORPHINE SULFATE 98266627410 No Longer Active [facility] Ziglari CHURN DRILLER HELPER Active Y[employer] STRP check blood sugars 6x/day GLUCOSE BLOOD 99818531699 Active [facility] Ziglari CHURN DRILLER HELPER Active LEVOTHYROXINE SODIUM 50 MCG ORAL TABS Take one by mouth daily LEVOTHYROXINE SODIUM 47689241183 [facility] CHURN DRILLER HELPER Active LEVOTHYROXINE SODIUM 25 MCG TABS Take one by mouth daily LEVOTHYROXINE SODIUM 31314648942 No Longer [facility] CHURN DRILLER HELPER Active GABAPENTIN 600 MG TABS by mouth twice a day GABAPENTIN 73303612820 No Longer [facility] CHURN DRILLER HELPER Active LATUDA 20 MG TABS Take one by mouth daily LURASIDONE HCL 50917993989 No Longer [facility] CHURN DRILLER HELPER Active RISPERDAL 2 MG ORAL TABS Take one by mouth daily RISPERIDONE 19598925259 [facility] CHURN DRILLER HELPER Active MOBIC 15 MG TABS Take one by mouth daily MELOXICAM 68904498416 No Longer Active [facility] Ziglari CHURN DRILLER HELPER Active LEXAPRO 20 MG TABS Take one by mouth daily ESCITALOPRAM OXALATE 36548340137 No Longer Active [facility] Ziglari CHURN DRILLER HELPER Active MS CONTIN 15 MG [id number] 1 tab by mouth every 12 hrs MORPHINE SULFATE 27991991848 No Longer Active [facility] Rogelioglari CHURN DRILLER HELPER Active GABAPENTIN 300 MG CAPS by mouth twice a day GABAPENTIN 48339980913 No Longer Active [facility] Rogelioglari CHURN DRILLER HELPER Active CYCLOBENZAPRINE HCL 10 MG TABS Take 1 tab every 6 hours PRN CYCLOBENZAPRINE HCL 58796052239 Active Lala Deras ACCOUNT LIAISON Active AMBIEN 10 MG TABS take 1/2 tab daily at bedtime prn ZOLPIDEM TARTRATE 99123230127 Active [facility] Rogelioglari CHURN DRILLER HELPER Active KLOR-CON 10 10 MEQ CR-TABS Take one by mouth daily POTASSIUM CHLORIDE 92982297429 Active [facility] Rogelioglari CHURN DRILLER HELPER Active FUROSEMIDE 40 MG TABS Take one and 1/2 tabs by mouth daily FUROSEMIDE 20990536525 Active Andreavenkata Mercadoari CHURN DRILLER HELPER Active ULTRAM ER 200 MG AY05H-SYQ Take one by mouth daily TRAMADOL HCL 14994440069 No Longer Active [facility] Rogelioari CHURN DRILLER HELPER Active SYMBICORT 160-4.5 MCG/ACT AERO 2 puffs bid BUDESONIDE- FORMOTEROL FUMARATE 82111070751 Active [facility] Rogelioglari CHURN DRILLER HELPER Active PREVACID 30 MG CPDR Take one by mouth twice daily LANSOPRAZOLE 96171539355 [facility] CHURN DRILLER HELPER Active ZETIA 10 MG TABS Take one by mouth daily EZETIMIBE 63072108819 Active [facility] Rogelioglari CHURN DRILLER HELPER Active GLUCAGON EMERGENCY 1 MG KIT Inject for low blood sugar GLUCAGON (RDNA) 32127542701 Active [facility] Rogelioglari CHURN DRILLER HELPER Active ATORVASTATIN CALCIUM 80 MG TABS Take one by mouth daily ATORVASTATIN CALCIUM 31307458722 Active [facility] Rogelioglari CHURN DRILLER HELPER Active LIPITOR 40 MG TABS take at bedtime ATORVASTATIN CALCIUM 58979197280 No Longer Active [facility] Rogelioglari CHURN DRILLER HELPER Active ASPIRIN 325 MG TABS Take one by mouth daily ASPIRIN 54124781633 Active Jasmyn Mary ACCOUNT LIAISON Active NOVOLOG 100 UNIT/ML SOLN per pump INSULIN ASPART 62083483273 No Longer Active Jasmyn Mary JOSHUA Active RANEXA 1000 MG HC85B-PXB 1 by mouth every 12 hrs RANOLAZINE 79874156832 Active Jasmyn Mary ACCOUNT LIAISON Active REGLAN 10 MG TABS 1 tab by mouth after meals and at hs daily METOCLOPRAMIDE HCL 16939668409 Active Jasmyn Mary ACCOUNT LIAISON Active KLOR-CON M20 20 MEQ CR-TABS Take one by mouth daily POTASSIUM CHLORIDE JEANINE CR 73586984109 Active Jasmyn Mary ACCOUNT LIAISON Active WELLBUTRIN 100 MG TABS Take one by mouth 3 times daily, morning, afternoon and evening BUPROPION HCL 36638005238 Active Jasmyn Mary ACCOUNT LIAISON Active CYMBALTA 60 MG CPEP 2 caps by mouth daily DULOXETINE HCL 17354559881 Active Jasmyn Mary ACCOUNT LIAISON Active RAMIPRIL 10 MG CAPS Take one by mouth daily RAMIPRIL 52389319345 Active Jasmyn Mary ACCOUNT LIAISON Active PERCOCET 10-325 MG TABS one by mouth every 6 hrs as needed for pain OXYCODONE-ACETAMINOPHEN 80831975924 Active Jasmyn Mary ACCOUNT LIAISON Active NITROSTAT 0.4 MG SUBL 1 tab under tongue every 5 min as need for cx pain. not to exceet total of 3 doses in 15 min NITROGLYCERIN 00700157963 Active Jasmyn Mary ACCOUNT LIAISON Active LIPITOR 40 MG TABS take at bedtime LIPITOR 40 MG TABS 114844 ATORVASTATIN CALCIUM Inactive ULTRAM ER 200 MG BL65J-PCS Take one by mouth daily ULTRAM ER 200 MG [id number] TRAMADOL HCL Inactive GABAPENTIN 300 MG CAPS by mouth twice a day GABAPENTIN 300 MG CAPS 979655 GABAPENTIN Inactive MS CONTIN 15 MG FN40E-DTS 1 tab by mouth every 12 hrs MS CONTIN 15 MG VG26Y-DGU MORPHINE SULFATE Inactive LEXAPRO 20 MG TABS Take one by mouth daily LEXAPRO 20 MG TABS 732887 ESCITALOPRAM OXALATE Inactive MOBIC 15 MG TABS Take one by mouth daily MOBIC 15 MG TABS 523643 MELOXICAM Inactive LATUDA 20 MG TABS Take one by mouth daily LATUDA 20 MG TABS LURASIDONE HCL Inactive GABAPENTIN 600 MG TABS by mouth twice a day GABAPENTIN 600 MG TABS 705523 GABAPENTIN Inactive LEVOTHYROXINE SODIUM 25 MCG TABS Take one by mouth daily LEVOTHYROXINE SODIUM 25 MCG TABS 469209 LEVOTHYROXINE SODIUM Inactive MS CONTIN 30 MG [...] Panel - Chemistry sodium, serum 138 mmol/L 939-393 2693/11/30 potassium, serum 4.9 mmol/L 3.5-5.2 chloride, serum 102 mmol/L 98-107 carbon dioxide, venous blood 30.5 mmol/L 21.0-32.0 blood glucose 212 mg/dL 65-110 calcium, serum 9.0 mg/dL 8.5-10.1 urea nitrogen, blood 18 mg/dL 7-18 creatinine, serum 1.28 mg/dL 0.55-1.30 Lab Report: Basic Metabolic Panel, HGBA1C - Chemistry sodium, serum 138 mmol/L 086-077 9592/08/24 potassium, serum 4.6 mmol/L 3.5-5.2 chloride, serum [...] mg/dL Encounters Code Encounter Date Provider Facility CPT-47687 Level 4 Est. Patient 17:42:49 DIRECTOR SECURITY MANAGEMENT [facility] CPT-10055 Level 4 Est. Patient 16:31:44 DIRECTOR SECURITY MANAGEMENT [facility] CPT-01120 Level 3 Est. Patient 13:47:02 CDT [facility] CPT-20240 Level 4 Est. Patient 17:39:08 CDT [facility] CPT-44197 Level 3 Est. Patient 16:08:05 DIRECTOR SECURITY MANAGEMENT [facility] CPT-47397 Level 4 Est. Patient 16:28:18 DIRECTOR SECURITY MANAGEMENT [facility] CPT-17696 Level 4 Est. Patient 18:06:10 CDT [facility] CPT-99668 Level 4 Est. Patient 15:14:20 CDT [facility] CPT-04987 Level 3 Est. Patient 14:44:29 CDT [facility] CPT-07201 Level 4 Est. Patient 15:15:35 DIRECTOR SECURITY MANAGEMENT [facility] CPT-46564 Level 3 Est. Patient 15:07:35 CDT Elias Malagon [facility] CPT-60404 Level 4 Est. Patient 15:40:05 CDT Elias Malagon [facility] CPT-64677 Level 4 Est. Patient 15:32:36 DIRECTOR SECURITY MANAGEMENT Elias Malagon [facility] CPT-19673 Level 5 Est. Patient 17:33:32 DIRECTOR SECURITY MANAGEMENT Elias Malagon [facility] CPT-24679 Level 5 Est. Patient 15:05:09 CDT Elias Malagon [facility] CPT-42080 Level 4 Est. Patient 15:52:02 [facility] Level 4 Est. Patient 16:22:51 [facility]465[facility] Level 4 Est. Patient 17:41:26 DIRECTOR SECURITY MANAGEMENT [facility] Level 3 Est. Patient 17:42:24 [facility]-98995 Level 3 Est. Patient 14:01:37 CDT Evelyne Morales [facility] CPT-90872 Level 3 Est. Patient 16:13:45 CDT Elias Malagon [facility] CPT-76833 Level 4 Est. Patient 17:16:06 CDT Elias Malagon [facility] CPT-11661 Level 5 Est. [facility] 16:08:43 [facility] Procedures Code Procedure Name Date Entry Date Standard Description CPT-28483 HGBA1C - LAB USE ONLY 16:12:38 DIRECTOR SECURITY MANAGEMENT CPT-44566 BMP - LAB USE ONLY 16:12:38 DIRECTOR SECURITY MANAGEMENT CPT-85316 Venipuncture Draw Fee 16:12:38 DIRECTOR SECURITY MANAGEMENT CPT-99053 HGBA1C - LAB USE ONLY 09:42:26 CDT CPT-99306 BMP - LAB USE ONLY 09:42:26 CDT CPT-26790 Venipuncture Draw Fee 09:42:26 CDT CPT-08501 Prevnar 13 16:55:53 DIRECTOR SECURITY MANAGEMENT CPT-30701 Immunization Single Admin 16:55:53 DIRECTOR SECURITY MANAGEMENT CPT-57475 Pneumovax 16:04:52 DIRECTOR SECURITY MANAGEMENT
[2018-07-23] MEDS ORDERED: PATIENT MAY USE OWN MEDS, ALL PO SCH (12:15)
--- OUTSIDE RECORDS SUMMARY | 2018-07-23 12:16 | XMS REPORT | Clinical Summary ---
Author Author Admin, GARY Organization [facility] Address Unknown Phone Unavailable Allergies, Adverse Reactions, [...] TYPE I, UNCONTROLLED 250.03 Active Maliheh Ziglari CASTING MACHINE SET UP OPERATOR Diabetes mellitus without mention of complication, type I [juvenile type], uncontrolled DIABETIC HYPOGLYCEMIA, TYPE I, UNCONTROLLED 250.83 Active 12/10 Malgriffin Ziglari CASTING MACHINE SET UP OPERATOR Diabetes mellitus with other specified manifestations, type I [juvenile type], uncontrolled Continuous insulin infusion pump V46.9 Active Elias Malagon CASTING MACHINE SET UP OPERATOR Unspecified machine and device dependence Medication List Medication Instructions Start Date Stop Date Generic Name NDC Status Provider Patient Instruction NOVOLOG 100 UNIT/ML SC SOLN 100-200u/day INSULIN ASPART 29624062389 Active [facility] Ziglari CASTING MACHINE SET UP OPERATOR Active HUMALOG 100 UNIT/ML SOLN 100-200u/day with insulin pump INSULIN LISPRO (HUMAN) 80711969803 No Longer Active [facility] Ziglari CASTING MACHINE SET UP OPERATOR Active COREG 12.5 MG ORAL TABS by mouth twice a day CARVEDILOL 29164751120 [facility]ACH[facility] SET UP OPERATOR Active MS CONTIN 30 MG CR-TABS by mouth twice a day MORPHINE SULFATE 76675593574 No Longer Active [facility] Ziglari CASTING MACHINE SET UP OPERATOR Active [employer] STRP check blood sugars 6x/day GLUCOSE BLOOD 32265288135 Active [facility] Ziglari CASTING MACHINE SET UP OPERATOR Active LEVOTHYROXINE SODIUM 50 MCG ORAL TABS Take one by mouth daily LEVOTHYROXINE SODIUM 33294384379 [facility] CASTING MACHINE SET UP OPERATOR Active LEVOTHYROXINE SODIUM 25 MCG TABS Take one by mouth daily LEVOTHYROXINE SODIUM 32719499677 No Longer [facility] CASTING MACHINE SET UP OPERATOR Active GABAPENTIN 600 MG TABS by mouth twice a day GABAPENTIN 27275400966 No Longer Active [facility] CASTING MACHINE SET UP OPERATOR Active LATUDA 20 MG TABS Take one by mouth daily LURASIDONE HCL 52064551003 No Longer Active [facility] CASTING MACHINE SET UP OPERATOR Active RISPERDAL 2 MG ORAL TABS Take one by mouth daily RISPERIDONE 98536977596 [facility] CASTING MACHINE SET UP OPERATOR Active MOBIC 15 MG TABS Take one by mouth daily MELOXICAM 31794951347 No Longer Active [facility] Ziglari CASTING MACHINE SET UP OPERATOR Active LEXAPRO 20 MG TABS Take one by mouth daily ESCITALOPRAM OXALATE 24587806712 No Longer Active [facility] Ziglari CASTING MACHINE SET UP OPERATOR Active MS CONTIN 15 MG [id number] 1 tab by mouth every 12 hrs MORPHINE SULFATE 46028414080 No Longer Active [facility] Rogelioglari CASTING MACHINE SET UP OPERATOR Active GABAPENTIN 300 MG CAPS by mouth twice a day GABAPENTIN 72828565439 No Longer Active [facility] Rogelioglari CASTING MACHINE SET UP OPERATOR Active CYCLOBENZAPRINE HCL 10 MG TABS Take 1 tab every 6 hours PRN CYCLOBENZAPRINE HCL 45453567505 Active Lala Deras POPULATION HEALTH COACH Active AMBIEN 10 MG TABS take 1/2 tab daily at bedtime prn ZOLPIDEM TARTRATE 41793292552 Active [facility] Rogelioglari CASTING MACHINE SET UP OPERATOR Active KLOR-CON 10 10 MEQ CR-TABS Take one by mouth daily POTASSIUM CHLORIDE 74067428147 Active [facility] Rogelioglari CASTING MACHINE SET UP OPERATOR Active FUROSEMIDE 40 MG TABS Take one and 1/2 tabs by mouth daily FUROSEMIDE 23708842743 Active Andreavenkata Mercadoari CASTING MACHINE SET UP OPERATOR Active ULTRAM ER 200 MG [id number] Take one by mouth daily TRAMADOL HCL 06593127909 No Longer Active [facility] Rogelioari CASTING MACHINE SET UP OPERATOR Active SYMBICORT 160-4.5 MCG/ACT AERO 2 puffs bid BUDESONIDE- FORMOTEROL FUMARATE 79582212758 Active [facility] Rogelioglari CASTING MACHINE SET UP OPERATOR Active PREVACID 30 MG CPDR Take one by mouth twice daily LANSOPRAZOLE 92894693625 Active [facility] CASTING MACHINE SET UP OPERATOR Active ZETIA 10 MG TABS Take one by mouth daily EZETIMIBE 57199165950 Active [facility] Rogelioglari CASTING MACHINE SET UP OPERATOR Active GLUCAGON EMERGENCY 1 MG KIT Inject for low blood sugar GLUCAGON (RDNA) 25941188363 Active [facility] Rogelioglari CASTING MACHINE SET UP OPERATOR Active ATORVASTATIN CALCIUM 80 MG TABS Take one by mouth daily ATORVASTATIN CALCIUM 26493014071 Active [facility] Rogelioglari CASTING MACHINE SET UP OPERATOR Active LIPITOR 40 MG TABS take at bedtime ATORVASTATIN CALCIUM 42953418393 No Longer Active [facility] Rogelioglari CASTING MACHINE SET UP OPERATOR Active ASPIRIN 325 MG TABS Take one by mouth daily ASPIRIN 04280695816 Active Jasmyn Mary POPULATION HEALTH COACH Active NOVOLOG 100 UNIT/ML SOLN per pump INSULIN ASPART 25443755786 No Longer Active Jasmyn Mary JOSHUA Active RANEXA 1000 MG [id number] 1 by mouth every 12 hrs RANOLAZINE 15104636075 Active Jasmyn Mary POPULATION HEALTH COACH Active REGLAN 10 MG TABS 1 tab by mouth after meals and at hs daily METOCLOPRAMIDE HCL 34821290069 Active Jasmyn Mary POPULATION HEALTH COACH Active KLOR-CON M20 20 MEQ CR-TABS Take one by mouth daily POTASSIUM CHLORIDE JEAINNE CR 34235933578 Active Jasmyn Mary POPULATION HEALTH COACH Active WELLBUTRIN 100 MG TABS Take one by mouth 3 times daily, morning, afternoon and evening BUPROPION HCL 41872966797 Active Jasmyn Mary POPULATION HEALTH COACH Active CYMBALTA 60 MG CPEP 2 caps by mouth daily DULOXETINE HCL 65222847408 Active Jasmyn Mary POPULATION HEALTH COACH Active RAMIPRIL 10 MG CAPS Take one by mouth daily RAMIPRIL 56345602427 Active Jasmyn Mary POPULATION HEALTH COACH Active PERCOCET 10-325 MG TABS one by mouth every 6 hrs as needed for pain OXYCODONE-ACETAMINOPHEN 31731993183 Active Jasmyn Mary POPULATION HEALTH COACH Active NITROSTAT 0.4 MG SUBL 1 tab under tongue every 5 min as need for cx pain. not to exceet total of 3 doses in 15 min NITROGLYCERIN 62133514573 Active Jasmyn Mary POPULATION HEALTH COACH Active LIPITOR 40 MG TABS take at bedtime LIPITOR 40 MG TABS 164893 ATORVASTATIN CALCIUM Inactive ULTRAM ER 200 MG [id number] Take one by mouth daily ULTRAM ER 200 MG [id number] TRAMADOL HCL Inactive GABAPENTIN 300 MG CAPS by mouth twice a day GABAPENTIN 300 MG CAPS 569241 GABAPENTIN Inactive MS CONTIN 15 MG [id number] 1 tab by mouth every 12 hrs MS CONTIN 15 MG [id number] MORPHINE SULFATE Inactive LEXAPRO 20 MG TABS Take one by mouth daily LEXAPRO 20 MG TABS 049789 ESCITALOPRAM OXALATE Inactive MOBIC 15 MG TABS Take one by mouth daily MOBIC 15 MG TABS 019798 MELOXICAM Inactive LATUDA 20 MG TABS Take one by mouth daily LATUDA 20 MG TABS LURASIDONE HCL Inactive GABAPENTIN 600 MG TABS by mouth twice a day GABAPENTIN 600 MG TABS 399193 GABAPENTIN Inactive LEVOTHYROXINE SODIUM 25 MCG TABS Take one by mouth daily LEVOTHYROXINE SODIUM 25 MCG TABS 065015 LEVOTHYROXINE SODIUM Inactive MS CONTIN 30 MG [...] Panel - Chemistry sodium, serum 138 mmol/L 746-232 9802/11/30 potassium, serum 4.9 mmol/L 3.5-5.2 chloride, serum 102 mmol/L 98-107 carbon dioxide, venous blood 30.5 mmol/L 21.0-32.0 blood glucose 212 mg/dL 65-110 calcium, serum 9.0 mg/dL 8.5-10.1 urea nitrogen, blood 18 mg/dL 7-18 creatinine, serum 1.28 mg/dL 0.55-1.30 Lab Report: Basic Metabolic Panel, HGBA1C - Chemistry sodium, serum 138 mmol/L 469-962 5084/08/24 potassium, serum 4.6 mmol/L 3.5-5.2 chloride, serum [...] mg/dL Encounters Code Encounter Date Provider Facility CPT-98882 Level 4 Est. Patient 17:42:49 LITERATURE TEACHER [facility] CPT-73194 Level 4 Est. Patient 16:31:44 LITERATURE TEACHER [facility] CPT-83407 Level 3 Est. Patient 13:47:02 CDT [facility] CPT-59244 Level 4 Est. Patient 17:39:08 CDT [facility] CPT-90999 Level 3 Est. Patient 16:08:05 LITERATURE TEACHER [facility] CPT-21503 Level 4 Est. Patient 16:28:18 LITERATURE TEACHER [facility] CPT-74575 Level 4 Est. Patient 18:06:10 CDT [facility] CPT-84932 Level 4 Est. Patient 15:14:20 CDT [facility] CPT-14587 Level 3 Est. Patient 14:44:29 CDT [facility] CPT-90792 Level 4 Est. Patient 15:15:35 LITERATURE TEACHER [facility] CPT-85157 Level 3 Est. Patient 15:07:35 CDT Elias Malagon [facility] CPT-56506 Level 4 Est. Patient 15:40:05 CDT Elias Malagon [facility] CPT-07146 Level 4 Est. Patient 15:32:36 LITERATURE TEACHER Elias Malagon [facility] CPT-74430 Level 5 Est. Patient 17:33:32 LITERATURE TEACHER Elias Malagon [facility] CPT-42930 Level 5 Est. Patient 15:05:09 CDT Elias Malagon [facility] CPT-52383 Level 4 Est. Patient 15:52:02 CDT [facility] Level 4 Est. Patient 16:22:51 [facility] Level 4 Est. Patient 17:41:26 LITERATURE TEACHER [facility] Level 3 Est. Patient 17:42:24 CDT [facility] CPT-31318 Level 3 Est. Patient 14:01:37 CDT Evelyne Morales [facility] CPT-04038 Level 3 Est. Patient 16:13:45 CDT Elias Malagon [facility] CPT-54787 Level 4 Est. Patient 17:16:06 CDT Elias Malagon [facility] CPT-81914 Level 5 Est. Patient 16:08:43 CDT [facility] Procedures Code Procedure Name Date Entry Date Standard Description CPT-94779 HGBA1C - LAB USE ONLY 16:12:38 LITERATURE TEACHER CPT-09758 BMP - LAB USE ONLY 16:12:38 LITERATURE TEACHER CPT-08590 Venipuncture Draw Fee 16:12:38 LITERATURE TEACHER CPT-16204 HGBA1C - LAB USE ONLY 09:42:26 CDT CPT-76858 BMP - LAB USE ONLY 09:42:26 CDT CPT-23168 Venipuncture Draw Fee 09:42:26 CDT CPT-52044 Prevnar 13 16:55:53 LITERATURE TEACHER CPT-74531 Immunization Single Admin 16:55:53 LITERATURE TEACHER CPT-01832 Pneumovax 16:04:52 LITERATURE TEACHER
--- OUTSIDE RECORDS SUMMARY | 2018-07-23 12:17 | XMS REPORT | Clinical Summary ---
Author Author Admin, GARY Organization [facility] Address Unknown Phone Unavailable Allergies, Adverse Reactions, [...] TYPE I, UNCONTROLLED 250.03 Active Malgriffin Mercadoglari MACHINIST SET UP Diabetes mellitus without mention of complication, type I [juvenile type], uncontrolled DIABETIC HYPOGLYCEMIA, TYPE I, UNCONTROLLED 250.83 Active 12/10 Malgriffin Ziglari MACHINIST SET UP Diabetes mellitus with other specified manifestations, type I [juvenile type], uncontrolled Continuous insulin infusion pump V46.9 Active Elias Malagon MACHINIST SET UP Unspecified machine and device dependence Medication List Medication Instructions Start Date Stop Date Generic Name NDC Status Provider Patient Instruction RISPERDAL 2 MG ORAL TABS Take one by mouth daily RISPERIDONE 88940682645 Active [facility] Ziglari MACHINIST SET UP Active HUMALOG 100 UNIT/ML SOLN 100-200u/day with insulin pump INSULIN LISPRO (HUMAN) 65480144157 Active [facility] Ziglari MACHINIST SET UP Active MOBIC 15 MG TABS Take one by mouth daily MELOXICAM 58285263237 No Longer Active [facility] Ziglari MACHINIST SET UP Active LEXAPRO 20 MG TABS Take one by mouth daily ESCITALOPRAM OXALATE 39309106275 No Longer Active [facility] Rogelioglari MACHINIST SET UP Active MS CONTIN 30 MG CR-TABS by mouth twice a day MORPHINE SULFATE 45792249207 Active [facility] Ziglari MACHINIST SET UP Active MS CONTIN 15 MG [id number] 1 tab by mouth every 12 hrs MORPHINE SULFATE 99412446081 No Longer Active [facility] Rogelioglari MACHINIST SET UP Active LATUDA 20 MG TABS Take one by mouth daily LURASIDONE HCL 06844227292 Active [facility] Rogelioglari MACHINIST SET UP Active GABAPENTIN 600 MG TABS by mouth twice a day GABAPENTIN 39153303713 Active [facility] Ziglari MACHINIST SET UP Active GABAPENTIN 300 MG CAPS by mouth twice a day GABAPENTIN 15268487966 No Longer Active [facility] Rogelioglari MACHINIST SET UP Active CYCLOBENZAPRINE HCL 10 MG TABS Take 1 tab every 6 hours PRN CYCLOBENZAPRINE HCL 79912501963 Active Lala Deras NEMATOLOGY TEACHER Active LEVOTHYROXINE SODIUM 25 MCG TABS Take one by mouth daily LEVOTHYROXINE SODIUM 88714024645 Active [facility] Rogelioglari MACHINIST SET UP Active AMBIEN 10 MG TABS take 1/2 tab daily at bedtime prn ZOLPIDEM TARTRATE 84141711819 [facility] Active KLOR-CON 10 10 MEQ CR-TABS Take one by mouth daily POTASSIUM CHLORIDE 45899669823 Active [facility] Ziglari MACHINIST SET UP Active FUROSEMIDE 40 MG TABS Take one and 1/2 tabs by mouth daily FUROSEMIDE 81546411084 Active [facility] SET UP Active ULTRAM ER 200 MG [id number] Take one by mouth daily TRAMADOL HCL 03832968859 No Longer Active [facility] MACHINIST SET UP Active SYMBICORT 160-4.5 MCG/ACT AERO 2 puffs bid BUDESONIDE- FORMOTEROL FUMARATE 35993541120 Active [facility] MACHINIST SET UP Active PREVACID 30 MG CPDR Take one by mouth twice daily LANSOPRAZOLE 34226243110 Active [facility] MACHINIST SET UP Active ZETIA 10 MG TABS Take one by mouth daily EZETIMIBE 66001705007 Active [facility] MACHINIST SET UP Active GLUCAGON EMERGENCY 1 MG KIT Inject for low blood sugar GLUCAGON (RDNA) 89426212763 Active [facility] Rogelioglari MACHINIST SET UP Active CARVEDILOL 25 MG TABS Take one by mouth twice daily CARVEDILOL 21033682114 Active [facility] MACHINIST SET UP Active ATORVASTATIN CALCIUM 80 MG TABS Take one by mouth daily ATORVASTATIN CALCIUM 54707337504 Active [facility] MACHINIST SET UP Active LIPITOR 40 MG TABS take at bedtime ATORVASTATIN CALCIUM 94781958707 No Longer Active [facility] Rogelioglari MACHINIST SET UP Active ASPIRIN 325 MG TABS Take one by mouth daily ASPIRIN 50682633602 Active Jasmyn Mary LPN Active NOVOLOG 100 UNIT/ML SOLN per pump INSULIN ASPART 69587261662 No Longer Active Jasmyn Mary LPN Active RANEXA 1000 MG [id number] 1 by mouth every 12 hrs RANOLAZINE 67363661670 Active Jasmyn Mary LPN Active REGLAN 10 MG TABS 1 tab by mouth after meals and at hs daily METOCLOPRAMIDE HCL 59662391699 Active Jasmyn Mary LPN Active KLOR-CON M20 20 MEQ CR-TABS Take one by mouth daily POTASSIUM CHLORIDE JEANINE CR 33427912431 Active Jasmyn Mary LPN Active WELLBUTRIN 100 MG TABS Take one by mouth 3 times daily, morning, afternoon and evening BUPROPION HCL 12188430801 Active Jasmyn Mary LPN Active CYMBALTA 60 MG CPEP 2 caps by mouth daily DULOXETINE HCL 38752158339 Active Jasmyn Mary LPN Active RAMIPRIL 10 MG CAPS Take one by mouth daily RAMIPRIL 79943548174 Active Jasmyn Mary LPN Active PERCOCET 10-325 MG TABS one by mouth every 6 hrs as needed for pain OXYCODONE-ACETAMINOPHEN 55510137781 Active Jasmyn Mary LPN Active NITROSTAT 0.4 MG SUBL 1 tab under tongue every 5 min as need for cx pain. not to exceet total of 3 doses in 15 min NITROGLYCERIN 60156411391 Active Jasmyn Mary LPN Active LIPITOR 40 MG TABS take at bedtime LIPITOR 40 MG TABS 781323 ATORVASTATIN CALCIUM Inactive ULTRAM ER 200 MG [id number] Take one by mouth daily ULTRAM ER 200 MG [id number] TRAMADOL HCL Inactive GABAPENTIN 300 MG CAPS by mouth twice a day GABAPENTIN 300 MG CAPS 382433 GABAPENTIN Inactive MS CONTIN 15 MG [id number] 1 tab by mouth every 12 hrs MS CONTIN 15 MG [id number] MORPHINE SULFATE Inactive LEXAPRO 20 MG TABS Take one by mouth daily LEXAPRO 20 MG TABS 698564 ESCITALOPRAM OXALATE Inactive MOBIC 15 MG TABS Take one by mouth daily MOBIC 15 MG TABS 076976 MELOXICAM Inactive Advance Directives Directive Description Start [...] HGBA1C - Chemistry sodium, serum 141 mmol/L 040-606 3662/04/20 potassium, serum 4.8 mmol/L 3.5-5.2 chloride, serum 101 mmol/L 98-107 carbon dioxide, venous blood 34.5 mmol/L 21.0-32.0 blood glucose 94 mg/dL 65-110 calcium, serum 9.0 mg/dL 8.5-10.1 urea nitrogen, blood 17 mg/dL 7-18 creatinine, serum 1.20 mg/dL 0.60-1.30 hemoglobin A1C, blood, as % of total hemoglobin 7.8 % 4.3-6.0 sodium, serum 140 mmol/L 108-326 3328/07/29 potassium, serum 4.6 mmol/L 3.5-5.2 chloride, serum 102 mmol/L 98-107 carbon dioxide, venous blood 33.3 mmol/L 21.0-32.0 blood glucose 177 mg/dL 65-110 calcium, serum 8.7 mg/dL 8.5-10.1 urea nitrogen, blood 19 mg/dL 7-18 creatinine, serum 1.20 mg/dL 0.60-1.30 hemoglobin A1C, blood, as % of total hemoglobin 7.6 % 4.3-6.0 Lab Report: Basic Metabolic Panel, MICROALBUMIN, HGBA1C - Chemistry sodium, serum 138 mmol/L 073-354 0177/11/04 potassium, serum 3.9 mmol/L 3.5-5.2 chloride, serum [...] mg/dL Encounters Code Encounter Date Provider Facility CPT-49308 Level 3 Est. Patient 16:08:05 OVERHEAD LINE WORKER [facility] CPT-33017 Level 4 Est. Patient 16:28:18 OVERHEAD LINE WORKER [facility] CPT-31994 Level 4 Est. Patient 18:06:10 CDT [facility] CPT-37857 Level 4 Est. Patient 15:14:20 CDT [facility] CPT-51059 Level 3 Est. Patient 14:44:29 CDT [facility] CPT-17878 Level 4 Est. Patient 15:15:35 OVERHEAD LINE WORKER [facility] CPT-59566 Level 3 Est. Patient 15:07:35 CDT Elias Malagon [facility] CPT-58683 Level 4 Est. Patient 15:40:05 CDT Elias Malagon [facility] CPT-78001 Level 4 Est. Patient 15:32:36 OVERHEAD LINE WORKER Elias Malagon [facility] [place] CPT-37015 Level 5 Est. Patient 17:33:32 OVERHEAD LINE WORKER Elias Malagon [facility] CPT-05290 Level 5 Est. Patient 15:05:09 CDT Elias Malagon [facility] [place] CPT-49955 Level 4 Est. Patient 15:52:02 CDT Elias Malagon [facility] [place] CPT-05029 Level 4 Est. Patient 16:22:51 [facility] Level 4 Est. Patient 17:41:26 OVERHEAD LINE WORKER Elias Malagon [facility] [place] CPT-88914 Level 3 Est. Patient 17:42:24 CDT Elias Malagon [facility] CPT-99349 Level 3 Est. Patient 14:01:37 CDT Evelyne Morales [facility] CPT-05718 Level 3 Est. Patient 16:13:45 CDT Elias Malagon [facility] CPT-53346 Level 4 Est. Patient 17:16:06 CDT Elias Malagon [facility] CPT-17237 Level 5 Est. [facility] 16:08:43 [facility] Procedures Code Procedure Name Date Entry Date Standard Description CPT-05288 Prevnar 13 16:55:53 OVERHEAD LINE WORKER CPT-46428 Immunization Single Admin 16:55:53 OVERHEAD LINE WORKER CPT-47662 Pneumovax 16:04:52 OVERHEAD LINE WORKER
--- OUTSIDE RECORDS SUMMARY | 2018-07-23 12:17 | XMS REPORT | Clinical Summary ---
Author Author Admin, Mariaelena Organization [facility] Address Unknown [...] of care unspecified FH DIABETES V18.0 Active Jsamyn Mary LPN Family history of diabetes mellitus FH STROKE V17.1 Active Jasmyn Mary LPN Family history of stroke (cerebrovascular) FH BREAST CANCER V16.3 Active Jasmyn Mary LPN Family history of malignant neoplasm of breast DIABETES MELLITUS, TYPE I, UNCONTROLLED 250.03 Active Malgriffin Mercadoglari DENTAL LABORATORY MANAGER Diabetes mellitus without mention of complication, type I [juvenile type], uncontrolled DIABETIC HYPOGLYCEMIA, TYPE I, UNCONTROLLED 250.83 Active 12/10 Elias Ziglari DENTAL LABORATORY MANAGER Diabetes mellitus with other specified manifestations, type I [juvenile type], uncontrolled Continuous insulin infusion pump V46.9 Active Elias ROBERTSP Unspecified machine and device dependence Medication List Medication Instructions Start Date Stop Date Generic Name NDC Status Provider Patient Instruction COREG 12.5 MG ORAL TABS by mouth twice a day CARVEDILOL 16338032350 Active [facility] Ziglari DENTAL LABORATORY MANAGER Active MS CONTIN 30 MG CR-TABS by mouth twice a day MORPHINE SULFATE 28119292154 No Longer Active Maleh Ziglari DENTAL LABORATORY MANAGER Active ONETOUCH ULTRA BLUE STRP check blood sugars 6x/day GLUCOSE BLOOD 69632679534 Active [facility] Ziglari DENTAL LABORATORY MANAGER Active LEVOTHYROXINE SODIUM 50 MCG ORAL TABS Take one by mouth daily LEVOTHYROXINE SODIUM 76351985882 Active [facility] Ziglari DENTAL LABORATORY MANAGER Active LEVOTHYROXINE SODIUM 25 MCG TABS Take one by mouth daily LEVOTHYROXINE SODIUM 03213610664 No Longer Active [facility] Ziglari DENTAL LABORATORY MANAGER Active GABAPENTIN 600 MG TABS by mouth twice a day GABAPENTIN 89764158610 No Longer Active [facility] Ziglari DENTAL LABORATORY MANAGER Active LATUDA 20 MG TABS Take one by mouth daily LURASIDONE HCL 60873659357 No Longer Active [facility] Ziglari DENTAL LABORATORY MANAGER Active RISPERDAL 2 MG ORAL TABS Take one by mouth daily RISPERIDONE 58416596546 Active [facility] Ziglari DENTAL LABORATORY MANAGER Active HUMALOG 100 UNIT/ML SOLN 100-200u/day with insulin pump INSULIN LISPRO (HUMAN) 19446749683 Active [facility] Ziglari DENTAL LABORATORY MANAGER Active MOBIC 15 MG TABS Take one by mouth daily MELOXICAM 35216443167 No Longer Active [facility] Ziglari DENTAL LABORATORY MANAGER Active LEXAPRO 20 MG TABS Take one by mouth daily ESCITALOPRAM OXALATE 78313858634 No Longer Active [facility] Ziglari DENTAL LABORATORY MANAGER Active MS CONTIN 15 MG [id number] 1 tab by mouth every 12 hrs MORPHINE SULFATE 59275757766 No Longer Active Maleh Ziglari DENTAL LABORATORY MANAGER Active GABAPENTIN 300 MG CAPS by mouth twice a day GABAPENTIN 44186645000 No Longer Active Maleh Ziglari DENTAL LABORATORY MANAGER Active CYCLOBENZAPRINE HCL 10 MG TABS Take 1 tab every 6 hours PRN CYCLOBENZAPRINE HCL 40318594107 Active Lala Deras CASINO ATTENDANT Active AMBIEN 10 MG TABS take 1/2 tab daily at bedtime prn ZOLPIDEM TARTRATE 07095358575 [facility] DENTAL LABORATORY MANAGER Active KLOR-CON 10 10 MEQ CR-TABS Take one by mouth daily POTASSIUM CHLORIDE 65945025075 Active [facility] DENTAL LABORATORY MANAGER Active FUROSEMIDE 40 MG TABS Take one and 1/2 tabs by mouth daily FUROSEMIDE 56606036079 Active [facility] DENTAL LABORATORY MANAGER Active ULTRAM ER 200 MG [id number] Take one by mouth daily TRAMADOL HCL 67258572485 No Longer Active [facility] Mercadoglari DENTAL LABORATORY MANAGER Active SYMBICORT 160-4.5 MCG/ACT AERO 2 puffs bid BUDESONIDE- FORMOTEROL FUMARATE 39043878855 Active [facility] Active PREVACID 30 MG CPDR Take one by mouth twice daily LANSOPRAZOLE 73821202050 Active [facility] Active ZETIA 10 MG TABS Take one by mouth daily EZETIMIBE 10267359065 Active [facility] Rogelioglari DENTAL LABORATORY MANAGER Active GLUCAGON EMERGENCY 1 MG KIT Inject for low blood sugar GLUCAGON (RDNA) 14656376739 Active [facility] Rogelioglari DENTAL LABORATORY MANAGER Active ATORVASTATIN CALCIUM 80 MG TABS Take one by mouth daily ATORVASTATIN CALCIUM 12072035121 Active [facility] Rogelioglari DENTAL LABORATORY MANAGER Active LIPITOR 40 MG TABS take at bedtime ATORVASTATIN CALCIUM 58115295736 No Longer Active [facility] Rogelioglari DENTAL LABORATORY MANAGER Active ASPIRIN 325 MG TABS Take one by mouth daily ASPIRIN 89714630395 Active Jasmyn Mary LPN Active NOVOLOG 100 UNIT/ML SOLN per pump INSULIN ASPART 39215042392 No Longer Active Jasmyn Mary LPN Active RANEXA 1000 MG [id number] 1 by mouth every 12 hrs RANOLAZINE 73324184671 Active Jasmyn Mary LPN Active REGLAN 10 MG TABS 1 tab by mouth after meals and at hs daily METOCLOPRAMIDE HCL 17511617480 Active Jasmyn Mary LPN Active KLOR-CON M20 20 MEQ CR-TABS Take one by mouth daily POTASSIUM CHLORIDE JEANINE CR 92136372081 Active Jasmyn Mary CASINO ATTENDANT Active WELLBUTRIN 100 MG TABS Take one by mouth 3 times daily, morning, afternoon and evening BUPROPION HCL 79927833633 Active Jasmyn Mary CASINO ATTENDANT Active CYMBALTA 60 MG CPEP 2 caps by mouth daily DULOXETINE HCL 23198939595 Active Jasmyn Mary LPN Active RAMIPRIL 10 MG CAPS Take one by mouth daily RAMIPRIL 19099768890 Active Jasmyn Mary CASINO ATTENDANT Active PERCOCET 10-325 MG TABS one by mouth every 6 hrs as needed for pain OXYCODONE-ACETAMINOPHEN 73543344405 Active Jasmyn Mary LPN Active NITROSTAT 0.4 MG SUBL 1 tab under tongue every 5 min as need for cx pain. not to exceet total of 3 doses in 15 min NITROGLYCERIN 37665080589 Active Jasmyn Mary LPN Active LIPITOR 40 MG TABS take at bedtime LIPITOR 40 MG TABS 116419 ATORVASTATIN CALCIUM Inactive ULTRAM ER 200 MG [id number] Take one by mouth daily ULTRAM ER 200 MG [id number] TRAMADOL HCL Inactive GABAPENTIN 300 MG CAPS by mouth twice a day GABAPENTIN 300 MG CAPS 296626 GABAPENTIN Inactive MS CONTIN 15 MG [id number] 1 tab by mouth every 12 hrs MS CONTIN 15 MG [id number] MORPHINE SULFATE Inactive LEXAPRO 20 MG TABS Take one by mouth daily LEXAPRO 20 MG TABS 227936 ESCITALOPRAM OXALATE Inactive MOBIC 15 MG TABS Take one by mouth daily MOBIC 15 MG TABS 250644 MELOXICAM Inactive LATUDA 20 MG TABS Take one by mouth daily LATUDA 20 MG TABS LURASIDONE HCL Inactive GABAPENTIN 600 MG TABS by mouth twice a day GABAPENTIN 600 MG TABS 360498 GABAPENTIN Inactive LEVOTHYROXINE SODIUM 25 MCG TABS Take one by mouth daily LEVOTHYROXINE SODIUM 25 MCG TABS 987973 LEVOTHYROXINE SODIUM Inactive MS CONTIN 30 MG [...] Panel - Chemistry sodium, serum 138 mmol/L 298-451 5478/11/30 potassium, serum 4.9 mmol/L 3.5-5.2 chloride, serum 102 mmol/L 98-107 carbon dioxide, venous blood 30.5 mmol/L 21.0-32.0 blood glucose 212 mg/dL 65-110 calcium, serum 9.0 mg/dL 8.5-10.1 urea nitrogen, blood 18 mg/dL 7-18 creatinine, serum 1.28 mg/dL 0.55-1.30 Lab Report: Basic Metabolic Panel, HGBA1C - Chemistry sodium, serum 138 mmol/L 061-133 4585/08/24 potassium, serum 4.6 mmol/L 3.5-5.2 chloride, serum 100 mmol/L 98-107 carbon dioxide, venous blood 31.8 mmol/L 21.0-32.0 blood glucose 267 mg/dL 65-110 calcium, serum 9.1 mg/dL 8.5-10.1 urea nitrogen, blood 15 mg/dL 7-18 creatinine, serum 1.24 mg/dL 0.55-1.30 hemoglobin A1C, blood, as % of total hemoglobin 8.1 % 4.3-6.0 sodium, serum 138 mmol/L 985-478 5738/02/09 potassium, serum 4.5 mmol/L 3.5-5.2 chloride, serum [...] mg/dL Encounters Code Encounter Date Provider Facility CPT-19411 Level 4 Est. Patient 16:31:44 FOOD AND BEVERAGE MANAGER [facility] CPT-53833 Level 3 Est. Patient 13:47:02 CDT [facility] CPT-26647 Level 4 Est. Patient 17:39:08 CDT [facility] CPT-65142 Level 3 Est. Patient 16:08:05 FOOD AND BEVERAGE MANAGER [facility] CPT-71285 Level 4 Est. Patient 16:28:18 FOOD AND BEVERAGE MANAGER [facility] [place] [facility] CPT-56215 Level 4 Est. Patient 18:06:10 CDT [facility] CPT-58267 Level 4 Est. Patient 15:14:20 CDT [facility] CPT-44940 Level 3 Est. Patient 14:44:29 CDT [facility] CPT-36899 Level 4 Est. Patient 15:15:35 FOOD AND BEVERAGE MANAGER [facility] CPT-61591 Level 3 Est. Patient 15:07:35 CDT Maliheh Ziglari [facility] CPT-93738 Level 4 Est. Patient 15:40:05 CDT Elias Malagon [facility] CPT-80813 Level 4 Est. Patient 15:32:36 FOOD AND BEVERAGE MANAGER Elias Malagon [facility] CPT-52871 Level 5 Est. Patient 17:33:32 FOOD AND BEVERAGE MANAGER Elias Malagon [facility] CPT-98196 Level 5 Est. Patient 15:05:09 [facility] Level 4 Est. Patient 15:52:02 [facility] Level 4 Est. Patient 16:22:51 CDT [facility] CPT-14[facility] Level 4 Est. Patient 17:41:26 FOOD AND BEVERAGE MANAGER [facility] Level 3 Est. Patient 17:42:24 CDT Elias Malagon [facility] CPT-10198 Level 3 Est. Patient 14:01:37 [facility] Level 3 Est. Patient 16:13:45 [facility]PT-808[facility] Level 4 Est. Patient 17:16:06 CD[facility]-88145 Level 5 Est. Patient 16:08:43 CDT [facility] Procedures Code Procedure Name Date Entry Date Standard Description CPT-32035 HGBA1C - LAB USE ONLY 16:12:38 FOOD AND BEVERAGE MANAGER CPT-30108 BMP - LAB USE ONLY 16:12:38 FOOD AND BEVERAGE MANAGER CPT-54643 Venipuncture Draw Fee 16:12:38 FOOD AND BEVERAGE MANAGER CPT-34849 HGBA1C - LAB USE ONLY 09:42:26 CDT CPT-77925 BMP - LAB USE ONLY 09:42:26 CDT CPT-11126 Venipuncture Draw Fee 09:42:26 CDT CPT-98742 Prevnar 13 16:55:53 FOOD AND BEVERAGE MANAGER CPT-79958 Immunization Single Admin 16:55:53 FOOD AND BEVERAGE MANAGER CPT-02034 Pneumovax 16:04:52 FOOD AND BEVERAGE MANAGER
--- OUTSIDE RECORDS SUMMARY | 2018-07-23 12:18 | XMS REPORT | Clinical Summary ---
Author Author Admin, FLAKITOE Organization [facility] Address Unknown Phone Unavailable Allergies, Adverse [...] TYPE I, UNCONTROLLED 250.03 Active Maliheh Ziglari GLASS INSPECTOR Diabetes mellitus without mention of complication, type I [juvenile type], uncontrolled DIABETIC HYPOGLYCEMIA, TYPE I, UNCONTROLLED 250.83 Active 12/10 Maliheh Ziglari GLASS INSPECTOR Diabetes mellitus with other specified manifestations, type I [juvenile type], uncontrolled Continuous insulin infusion pump V46.9 Active Elias Mercadoglari GLASS INSPECTOR Unspecified machine and device dependence Medication List Medication Instructions Start Date Stop Date Generic Name NDC Status Provider Patient Instruction ONETOUCH ULTRA BLUE STRP check blood sugars 6x/day GLUCOSE BLOOD 41244142322 Active [facility] Ziglari GLASS INSPECTOR Active LEVOTHYROXINE SODIUM 50 MCG ORAL TABS Take one by mouth daily LEVOTHYROXINE SODIUM 26393980833 Active [facility] Ziglari GLASS INSPECTOR Active LEVOTHYROXINE SODIUM 25 MCG TABS Take one by mouth daily LEVOTHYROXINE SODIUM 84529020263 No Longer [facility] Active GABAPENTIN 600 MG TABS by mouth twice a day GABAPENTIN 91916192118 No Longer [facility] Active LATUDA 20 MG TABS Take one by mouth daily LURASIDONE HCL 12476577566 No Longer [facility] Active RISPERDAL 2 MG ORAL TABS Take one by mouth daily RISPERIDONE 68712917107 [facility] Active HUMALOG 100 UNIT/ML SOLN 100-200u/day with insulin pump INSULIN LISPRO (HUMAN) 81423186736 [facility]PECT[facility] Active MOBIC 15 MG TABS Take one by mouth daily MELOXICAM 58564546067 No Longer [facility]PECT[facility] Active LEXAPRO 20 MG TABS Take one by mouth daily ESCITALOPRAM OXALATE 20188291474 No Longer [facility] GL[facility] INSPECTOR Active MS CONTIN 30 MG CR-TABS by mouth twice a day MORPHINE SULFATE 73906084077 [facility] GL[facility]PECTOR Active MS CONTIN 15 MG [id number] 1 tab by mouth every 12 hrs MORPHINE SULFATE 24494562745 No Longer [facility] GL[facility]PECT[facility] Active GABAPENTIN 300 MG CAPS by mouth twice a day GABAPENTIN 13784185442 No Longer Active [facility] Ziglari GLASS INSPECTOR Active CYCLOBENZAPRINE HCL 10 MG TABS Take 1 tab every 6 hours PRN CYCLOBENZAPRINE HCL 53640073135 Active Lala Deras [employer] Active AMBIEN 10 MG TABS take 1/2 tab daily at bedtime prn ZOLPIDEM TARTRATE 08922165616 Active [facility] GLASS INSPECTOR Active KLOR-CON 10 10 MEQ CR-TABS Take one by mouth daily POTASSIUM CHLORIDE 85916341102 Active [facility] Rogelioglari GLASS INSPECTOR Active FUROSEMIDE 40 MG TABS Take one and 1/2 tabs by mouth daily FUROSEMIDE 60360643681 Active [facility] Rogelioari GLASS INSPECTOR Active ULTRAM ER 200 MG [id number] Take one by mouth daily TRAMADOL HCL 99086844941 No Longer Active [facility] GLASS INSPECTOR Active SYMBICORT 160-4.5 MCG/ACT AERO 2 puffs bid BUDESONIDE- FORMOTEROL FUMARATE 93642938499 Active [facility] Rogelioglari GLASS INSPECTOR Active PREVACID 30 MG CPDR Take one by mouth twice daily LANSOPRAZOLE 62274028085 Active [facility] GLASS INSPECTOR Active ZETIA 10 MG TABS Take one by mouth daily EZETIMIBE 96003584175 Active [facility] Rogelioglari GLASS INSPECTOR Active GLUCAGON EMERGENCY 1 MG KIT Inject for low blood sugar GLUCAGON (RDNA) 56032616951 Active [facility] Rogelioglari GLASS INSPECTOR Active CARVEDILOL 25 MG TABS Take one by mouth twice daily CARVEDILOL 08188108571 Active [facility] Rogelioglari GLASS INSPECTOR Active ATORVASTATIN CALCIUM 80 MG TABS Take one by mouth daily ATORVASTATIN CALCIUM 90435113148 Active [facility] Rogelioglari GLASS INSPECTOR Active LIPITOR 40 MG TABS take at bedtime ATORVASTATIN CALCIUM 05150606828 No Longer Active [facility] Rogelioglari GLASS INSPECTOR Active ASPIRIN 325 MG TABS Take one by mouth daily ASPIRIN 27508024261 Active Jasmyn Mary LPN Active NOVOLOG 100 UNIT/ML SOLN per pump INSULIN ASPART 07545680757 No Longer Active Jasmyn Mary LPN Active RANEXA 1000 MG VR97I-CZR 1 by mouth every 12 hrs RANOLAZINE 44695646367 Active Jasmyn Mary LPN Active REGLAN 10 MG TABS 1 tab by mouth after meals and at hs daily METOCLOPRAMIDE HCL 93331199644 Active Jasmyn Mary LPN Active KLOR-CON M20 20 MEQ CR-TABS Take one by mouth daily POTASSIUM CHLORIDE JEANINE CR 31517332214 Active Jasmyn Mary [employer] Active WELLBUTRIN 100 MG TABS Take one by mouth 3 times daily, morning, afternoon and evening BUPROPION HCL 15043883425 Active Jasmyn Mary [employer]REE [employer]OWER Active CYMBALTA 60 MG CPEP 2 caps by mouth daily DULOXETINE HCL 10978617188 Active Jasmyn Mary [employer]OWER Active RAMIPRIL 10 MG CAPS Take one by mouth daily RAMIPRIL 30714345753 Active Jasmyn Mary [employer]REE GROWER Active PERCOCET 10-325 MG TABS one by mouth every 6 hrs as needed for pain OXYCODONE-ACETAMINOPHEN 09234148682 Active Jasmyn Mary LPN Active NITROSTAT 0.4 MG SUBL 1 tab under tongue every 5 min as need for cx pain. not to exceet total of 3 doses in 15 min NITROGLYCERIN 09749353820 Active Jasmyn Mary LPN Active LIPITOR 40 MG TABS take at bedtime LIPITOR 40 MG TABS 396604 ATORVASTATIN CALCIUM Inactive ULTRAM ER 200 MG [id number] Take one by mouth daily ULTRAM ER 200 MG [id number] TRAMADOL HCL Inactive GABAPENTIN 300 MG CAPS by mouth twice a day GABAPENTIN 300 MG CAPS 832372 GABAPENTIN Inactive MS CONTIN 15 MG RA69T-BAA 1 tab by mouth every 12 hrs MS CONTIN 15 MG [id number] MORPHINE SULFATE Inactive LEXAPRO 20 MG TABS Take one by mouth daily LEXAPRO 20 MG TABS 251996 ESCITALOPRAM OXALATE Inactive MOBIC 15 MG TABS Take one by mouth daily MOBIC 15 MG TABS 546731 MELOXICAM Inactive LATUDA 20 MG TABS Take one by mouth daily LATUDA 20 MG TABS LURASIDONE HCL Inactive GABAPENTIN 600 MG TABS by mouth twice a day GABAPENTIN 600 MG TABS 500234 GABAPENTIN Inactive LEVOTHYROXINE SODIUM 25 MCG TABS Take one by mouth daily LEVOTHYROXINE SODIUM 25 MCG TABS 568533 LEVOTHYROXINE SODIUM Inactive Advance Directives Directive Description [...] HGBA1C - Chemistry sodium, serum 140 mmol/L 715-794 0210/07/29 potassium, serum 4.6 mmol/L 3.5-5.2 chloride, serum 102 mmol/L 98-107 carbon dioxide, venous blood 33.3 mmol/L 21.0-32.0 blood glucose 177 mg/dL 65-110 calcium, serum 8.7 mg/dL 8.5-10.1 urea nitrogen, blood 19 mg/dL 7-18 creatinine, serum 1.20 mg/dL 0.60-1.30 hemoglobin A1C, blood, as % of total hemoglobin 7.6 % 4.3-6.0 sodium, serum 138 mmol/L 674-908 0138/02/09 potassium, serum 4.5 mmol/L 3.5-5.2 chloride, serum [...] 7.9 % 4.3-6.0 sodium, serum 138 mmol/L 285-419 1147/11/04 potassium, serum 3.9 mmol/L 3.5-5.2 chloride, serum [...] mg/dL Encounters Code Encounter Date Provider Facility CPT-21648 Level 4 Est. Patient 17:39:08 CDT [facility] CPT-39654 Level 3 Est. Patient 16:08:05 INTERACTIVE WEB DEVELOPER [facility] CPT-68590 Level 4 Est. Patient 16:28:18 INTERACTIVE WEB DEVELOPER [facility] CPT-62122 Level 4 Est. Patient 18:06:10 CDT [facility] CPT-59840 Level 4 Est. Patient 15:14:20 CDT [facility] CPT-43629 Level 3 Est. Patient 14:44:29 CDT [facility] CPT-88711 Level 4 Est. Patient 15:15:35 INTERACTIVE WEB DEVELOPER [facility] CPT-58296 Level 3 Est. Patient 15:07:35 CDT [facility] CPT-28062 Level 4 Est. Patient 15:40:05 CDT [facility] CPT-21554 Level 4 Est. Patient 15:32:36 INTERACTIVE WEB DEVELOPER [facility] CPT-69749 Level 5 Est. Patient 17:33:32 INTERACTIVE WEB DEVELOPER [facility] CPT-94549 Level 5 Est. Patient 15:05:09 CDT [facility] Level 4 Est. Patient 15:52:02 CDT [facility] CPT-62413 Level 4 Est. Patient 16:22:51 CDT [facility] CPT-31512 Level 4 Est. Patient 17:41:26 INTERACTIVE WEB DEVELOPER [facility] CPT-25001 Level 3 Est. Patient 17:42:24 CDT [facility] CPT-91141 Level 3 Est. Patient 14:01:37 CDT [facility] CPT-42513 Level 3 Est. Patient 16:13:45 CDT [facility] CPT-38379 Level 4 Est. Patient 17:16:06 CDT [facility] CPT-60983 Level 5 Est. Patient 16:08:43 CDT [facility] Procedures Code Procedure Name Date Entry Date Standard Description CPT-35967 Prevnar 13 16:55:53 INTERACTIVE WEB DEVELOPER CPT-83427 Immunization Single Admin 16:55:53 INTERACTIVE WEB DEVELOPER CPT-45368 Pneumovax 16:04:52 INTERACTIVE WEB DEVELOPER
--- OUTSIDE RECORDS SUMMARY | 2018-07-23 12:24 | XMS REPORT | Continuity of Care Document ---
Author Author [facility] Organization [facility] Address Unknown Phone Unavailable Allergies Active Description Code Type Severity Reaction Onset Reported/Identified Relationship to Patient Clinical Status Yes FENTANYL [id number] DRUG N/A N/A Yes LATUDA [id number] BRANDNAME N/A N/A Yes PENICILLIN [id number] CLASS N/A N/A Yes PENICILLINS (CLASS) [id number] CLASS N/A N/A Yes Penicillins [id number] Drug Allergy Unknown N/A 10/13/2008 Yes fentanyl [id number] Drug Allergy Unknown URINARY PROBLEM 10/27/2014 Yes lurasidone [id number] Drug Allergy Unknown NIGHTMARES 10/27/2014 Medications There is no data. Problems Date Dx Coded Attending Type Code Diagnosis Diagnosed By 11/19/2011 Ot 250.00 11/19/2011 Ot 272.4 11/19/2011 Ot 411.1 11/19/2011 Ot 414.01 11/19/2011 Ot 414.2 11/19/2011 Ot 428.0 11/19/2011 Ot V45.81 11/19/2011 Ot V58.66 11/19/2011 Ot V58.67 11/19/2011 Ot V58.69 01/14/2013 JONI FOX MD Ot 250.00 01/14/2013 JONI FOX MD Ot 272.4 01/14/2013 JONI FOX MD Ot 401.9 01/14/2013 JONI FOX MD Ot 411.1 01/14/2013 JONI FOX MD Ot 414.01 01/14/2013 JONI FOX MD Ot 414.2 01/14/2013 JONI FOX MD Ot 428.0 01/14/2013 JONI FOX MD Ot V45.81 01/14/2013 JONI FOX MD Ot V58.69 10/27/2014 JONI FOX MD Ot 244.9 HYPOTHYROIDISM NOS 10/27/2014 JONI FOX MD Ot 250.00 DIAB LACEY WO COMPL, TYPE II OR UNSPEC TY 10/27/2014 JONI FOX MD Ot 272.4 HYPERLIPIDEMIA NEC/NOS 10/27/2014 JONI FOX MD Ot 305.1 TOBACCO USE DISORDER 10/27/2014 JONI FOX MD Ot 401.9 HYPERTENSION NOS 10/27/2014 JONI FOX MD Ot 411.1 INTERMED CORONARY SYND 10/27/2014 JONI FOX MD Ot 414.01 CORONARY ATHEROSCLEROSIS OF [place] CORON 10/27/2014 JONI FOX MD Ot 414.2 CHRONIC TOTAL OCCLUSION OF CORONARY [place] 10/27/2014 JONI FOX MD Ot 416.8 CHR PULMON HEART DIS NEC 10/27/2014 JONI FOX MD Ot 428.0 CONGESTIVE HEART FAILURE NOS 10/27/2014 JONI FOX MD Ot 428.22 CHRONIC SYSTOLIC HRT FAILURE 10/27/2014 JONI FOX MD Ot 782.3 EDEMA 10/27/2014 JONI FOX MD Ot V45.81 AORTOCORONARY BYPASS 10/27/2014 JONI FOX MD Ot V58.69 [facility] MED,LT,CURRENT USE 11/19/2014 JONI FOX MD Ot 272.4 11/19/2014 JONI FOX MD Ot 401.9 11/19/2014 JONI FOX MD Ot 414.00 11/19/2014 JONI FOX MD Ot 433.10 11/19/2014 JONI FOX MD Ot 786.50 05/25/2015 JONI FOX MD Ot 272.4 05/25/2015 JONI FOX MD Ot 401.9 05/25/2015 JONI FOX MD Ot 414.00 05/25/2015 JONI FOX MD Ot 433.10 05/25/2015 JONI FOX MD Ot 786.50 06/17/2015 NEFTALI RIOS Ot E78.2 06/17/2015 NEFTALI RIOS Ot I10 06/17/2015 NEFTALI RIOS Ot I25.10 06/17/2015 NEFTALI RIOS Ot I50.1 06/17/2015 NEFTALI RIOS Ot I65.23 02/14/2017 S I10 Essential ( primary) hypertension 02/14/2017 P I2510 Atherosclerotic heart disease of [place] coronary artery without angina pectoris 02/14/2017 S I501 Left ventricular failure 02/14/2017 S I6523 Occlusion and stenosis of bilateral carotid arteries 05/15/2018 P Z125 Encounter for screening for malignant neoplasm of prostate 07/17/2018 JONI FOX MD Ot 272.4 HYPERLIPIDEMIA NEC/NOS 07/17/2018 JONI FOX MD Ot 401.9 HYPERTENSION NOS 07/17/2018 JONI FOX MD Ot 414.00 CORON ATHEROSCLER NOS TYPE VESSEL, NATIV 07/17/2018 JONI FOX MD Ot 433.10 CAROTID ARTERY OCCLUSION W O CEREBRAL IN 07/17/2018 JONI FOX MD Ot 786.50 CHEST PAIN NOS 07/17/2018 NEFTALI RIOS Ot E78.2 MIXED HYPERLIPIDEMIA 07/17/2018 NEFTALI RIOS Ot I10 ESSENTIAL (PRIMARY) HYPERTENSION 07/17/2018 NEFTALI RIOS Ot I25.10 ATHSCL HEART DISEASE OF [place] CORONARY 07/17/2018 NEFTALI RIOS Ot I50.1 LEFT VENTRICULAR FAILURE 07/17/2018 NEFTALI RIOS Ot I65.23 OCCLUSION AND STENOSIS OF BILATERAL [place]ER[place] Procedures There is no data. Results Test Result Range Testosterone, Free/Tot Equilib - 05/21/17 15:05 Testosterone, Serum 353 ng/dL [id number] Testosterone,Free 6.88 ng/dL 5.00-21.00 % Free Testosterone 1.95 % 1.50-4.20 Encounters ACCT No. Visit Date/Time Discharge Status Pt. Type Provider Facility Loc./Unit Complaint [id number] 07/18/2018 10:46:43 07/18/2018 23:59:59 CLS Outpatient Maribel Vieira [id number] 07/11/2018 09:28:38 07/11/2018 23:59:59 CLS Outpatient Maribel Vieira [id number] 07/09/2018 14:23:42 07/09/2018 23:59:59 CLS Outpatient Maribel Vieira [id number] 05/15/2018 10:46:35 05/15/2018 23:59:59 CLS Outpatient Maribel Vieira [id number] 05/14/2018 14:08:26 05/14/2018 23:59:59 CLS Outpatient Maribel Vieira [id number] 04/16/2018 17:55:35 04/16/2018 23:59:59 CLS Outpatient Maribel Vieira [id number] 12/30/2017 14:20:00 12/30/2017 23:59:59 CLS Outpatient Maribel Vieira [id number] 12/03/2017 14:20:43 12/03/2017 23:59:59 CLS Outpatient Maribel Vieira [id number] 11/06/2017 14:08:46 11/06/2017 23:59:59 CLS Outpatient Maribel Vieira [id number] 10/18/2017 14:19:42 10/18/2017 23:59:59 CLS Outpatient Rosendo Marina Alec [id number] 10/09/2017 14:16:29 10/09/2017 23:59:59 CLS Outpatient Maribel Vieira [id number] 09/11/2017 14:13:47 09/11/2017 23:59:59 CLS Outpatient Maribel Vieira [id number] 08/14/2017 14:10:56 08/14/2017 23:59:59 CLS Outpatient Maribel Vieira [id number] 08/07/2017 14:01:07 08/07/2017 23:59:59 CLS Outpatient Maribel Vieira [id number] 07/24/2017 11:41:27 07/24/2017 23:59:59 CLS Outpatient Maribel Vieira [id number] 07/17/2017 14:13:38 07/17/2017 23:59:59 CLS Outpatient Maribel Vieira [id number] 06/19/2017 14:13:04 06/19/2017 23:59:59 CLS Outpatient Maribel Vieira [id number] 06/05/2017 15:48:42 06/05/2017 23:59:59 CLS Outpatient Maribel Vieira [id number] 05/28/2017 14:16:17 05/28/2017 23:59:59 CLS Outpatient Maribel Vieira [id number] 05/21/2017 14:20:24 05/21/2017 23:59:59 CLS Outpatient Maribel Vieira [id number] 02/20/2017 14:06:25 02/20/2017 23:59:59 CLS Outpatient Rhiannon Vieiravenkat Neal [id number] 01/16/2017 14:09:22 01/16/2017 23:59:59 CLS Outpatient Rhiannon Vieiravenkat Neal [id number] 12/19/2016 14:12:22 12/19/2016 23:59:59 CLS Outpatient Rhiannon Vieiravenkat Neal [id number] 12/03/2016 14:04:18 12/03/2016 23:59:59 CLS Outpatient Rhiannon Vieiravenkat Neal [id number] 11/21/2016 14:14:59 11/21/2016 23:59:59 CLS Outpatient Dariel Maribel Neal [id number] 10/26/2016 11:13:02 10/26/2016 23:59:59 CLS Outpatient Rhiannon Vieiravenkat Neal [id number] 10/04/2016 14:35:49 10/04/2016 23:59:59 CLS Outpatient Maribel Vieira [id number] 09/28/2016 11:11:02 09/28/2016 23:59:59 CLS Outpatient Rhiannon Vieiravenkat Neal [id number] 09/26/2016 15:04:26 09/26/2016 23:59:59 CLS Outpatient DarielMaribel [id number] 08/29/2016 14:09:17 08/29/2016 23:59:59 CLS Outpatient Dariel Maribel M [id number] 08/01/2016 11:05:38 08/01/2016 23:59:59 CLS Outpatient DarielMaribel [id number] 07/04/2016 14:10:50 07/04/2016 23:59:59 CLS Outpatient Maribel Vieira [id number] 06/07/2016 09:01:37 06/07/2016 23:59:59 CLS Outpatient Maribel Vieira [id number] 06/06/2016 14:33:46 06/06/2016 23:59:59 CLS Outpatient Maribel Vieira [id number] 05/09/2016 14:19:20 05/09/2016 23:59:59 CLS Outpatient Maribel Vieira [id number] 03/07/2016 14:13:09 03/07/2016 23:59:59 CLS Outpatient Maribel Vieira [id number] 02/08/2016 14:12:13 02/08/2016 23:59:59 CLS Outpatient DarielMaribel [id number] 01/11/2016 14:07:24 01/11/2016 23:59:59 CLS Outpatient Maribel Vieira [id number] 09/06/2015 09:07:07 09/06/2015 23:59:59 CLS Outpatient Dariel Maribel Neal [id number] 08/31/2015 14:10:47 08/31/2015 23:59:59 CLS Outpatient Maribel Vieira [id number] 08/03/2015 14:41:38 08/03/2015 23:59:59 CLS Outpatient DarielMaribel [id number] 07/06/2015 14:41:51 07/06/2015 23:59:59 CLS Outpatient Maribel Vieira [id number] 06/09/2015 09:12:58 06/09/2015 23:59:59 CLS Outpatient Maribel Vieira [id number] 05/17/2015 09:46:32 05/17/2015 23:59:59 CLS Outpatient Maribel Vieira [id number] 04/25/2015 09:09:40 04/25/2015 23:59:59 CLS Outpatient Maribel Vieira [id number] 03/28/2015 09:14:13 03/28/2015 23:59:59 CLS Outpatient Maribel Vieira [id number] 02/24/2015 09:09:46 02/24/2015 23:59:59 CLS Outpatient Maribel Vieira [id number] 02/07/2015 22:22:21 02/07/2015 23:59:59 CLS Outpatient Maribel Vieira [id number] 02/07/2015 22:03:02 02/07/2015 23:59:59 CLS Outpatient Maribel Vieira [id number] 02/07/2015 21:43:19 02/07/2015 23:59:59 CLS Outpatient Maribel Vieira [id number] 10/21/2014 09:27:08 10/21/2014 23:59:59 CLS Outpatient Maribel Vieira [id number] 09/29/2014 16:24:02 09/29/2014 23:59:59 CLS Outpatient Maribel Vieira [id number] 07/29/2014 10:37:22 07/29/2014 23:59:59 CLS Outpatient Maribel Vieira [id number] 06/29/2014 10:00:05 06/29/2014 23:59:59 CLS Outpatient Maribel Vieira [id number] 06/03/2014 09:49:52 06/03/2014 23:59:59 CLS Outpatient Maribel Vieira [id number] 05/06/2014 10:00:08 05/06/2014 23:59:59 CLS Outpatient Maribel Vieira [id number] 04/08/2014 09:53:42 04/08/2014 23:59:59 CLS Outpatient Maribel Vieira [id number] 03/11/2014 10:02:38 03/11/2014 23:59:59 CLS Outpatient Maribel Vieira [id number] 02/11/2014 10:55:03 02/11/2014 23:59:59 CLS Outpatient Maribel Vieira [id number] 01/14/2014 10:58:15 01/14/2014 23:59:59 CLS Outpatient Maribel Vieira [id number] 12/17/2013 10:13:34 12/17/2013 23:59:59 CLS Outpatient Maribel Vieira [id number] 11/19/2013 10:38:56 11/19/2013 23:59:59 CLS Outpatient Maribel Vieira [id number] 10/22/2013 09:46:55 10/22/2013 23:59:59 CLS Outpatient Maribel Vieira [id number] 09/24/2013 09:32:11 09/24/2013 23:59:59 CLS Outpatient Maribel Vieira [id number] 08/27/2013 09:54:11 08/27/2013 23:59:59 CLS Outpatient Maribel Vieira [id number] 07/02/2013 11:13:00 07/02/2013 23:59:59 CLS Outpatient Maribel Vieira [id number] 07/29/2013 16:39:15 Document Registration [id number] 10/27/2014 07:55:24 ACT Document Registration [id number] 05/27/2017 14:06:00 Document Registration [id number] 05/25/2015 09:45:00 05/25/2015 23:59:59 CLS Outpatient NEFTALI RIOS [facility] CARD CAD,CHF,HLP, HTN [id number] 10/27/2014 07:54:00 10/27/2014 15:35:00 DIS Outpatient JONI FOX MD [facility] ABN. STRESS, CAD,HTN, CHF [id number] 10/20/2014 07:57:00 10/20/2014 23:59:59 CLS Outpatient JONI FOX MD [facility] CARD CAD CAROTID STENOSIS CHEST PAIN [id number] 01/13/2013 11:51:00 01/14/2013 13:00:00 DIS Outpatient JONI FOX MD [facility] [id number] 07/23/2018 11:00:00 PEN Preadmit JONI FOX MD [facility] HTN,HLP [id number] 11/19/2011 07:11:00 Document Registration [id number] 07/11/2018 14:15:30 Document Registration [id number] 07/11/2018 09:11:36 Document Registration [id number] 05/15/2018 14:30:13 Document Registration [id number] 05/15/2018 14:28:22 Document Registration [id number] 05/15/2018 11:11:42 Document Registration [id number] 04/17/2018 13:10:01 Document Registration [id number] 12/31/2017 15:32:34 Document Registration [id number] 11/07/2017 15:44:55 Document Registration [id number] 09/30/2017 02:48:05 Document Registration [id number] 09/26/2017 10:42:12 Document Registration [id number] 09/11/2017 16:14:21 Document Registration [id number] 08/05/2017 21:39:17 Document Registration [id number] 08/05/2017 21:05:56 Document Registration [id number] 07/24/2017 15:26:27 Document Registration [id number] 06/05/2017 15:43:55 Document Registration [id number] 05/26/2017 06:32:01 Document Registration [id number] 05/26/2017 06:06:12 Document Registration [id number] 05/22/2017 21:31:17 Document Registration [id number] 05/22/2017 21:12:57 Document Registration [id number] 02/14/2017 13:43:00 Document Registration [id number] 01/24/2018 20:01:02 ACT Unknown [email or web address] 01/05/2017 13:48:39 ACT Document Registration
--- NOTE | 2018-07-23 12:47 | Cardiac Cath Report ---
Cardiac Cath Report Physician (s)/Vocational Training Teacher (s) Physician OJNI FOX MD Pre-Procedure Diagnosis Pre-Procedure Diagnosis: CAD Post-Procedure Note Procedure Start Date: Jul 23, 2018 Name of Procedure: LHC, VG, SAMIA angiogram Findings/Procedure Note PROCEDURE NOTE: After explaining the procedure to the patient, all pros and cons were explained , all questions were answered. The patient signed the consent and then he was placed on the cardiac catheterization laboratory. Groin was prepped SL fashion local anesthesia was used. Sheath placed in the right femoral artery. Trisha right and left catheter were used to access the coronary system. Pigtail was used to access the left ventricular cavity. Left ventriculogram was not done, pressure was measured Trisha right catheter was used to evaluate the vein graft and the internal mammary artery At the end of the procedure the sheath was removed. Closure device was used FINDINGS: Hemodynamics LV 113/22, and distal pressure 22 Aorta 115/54 mean of 78 ANATOMY: Left Main has moderate disease Left Anterior Descending is occluded with patent DECKER to LAD, severely diseased diagonal branches that are smaller arteries Left Circumflex is severely diseased with patent vein graft to the right coronary artery Right Coronory Artery has moderate diffuse disease with patent vein graft to the right coronary artery Vein graft angiogram the vein graft to the right coronary artery is patent with good flow distally Vein graft to the obtuse marginal branch is patent with good flow distally DECKER angiogram showed patent DECKER to the mid LAD with excellent flow distally LV Gram was not done, pressure was measured CONCLUSION: 1. Patent DECKER to LAD, vein graft to the obtuse marginal branch and vein graft to the right coronary artery with small vessel disease distally nonobstructive disease 2. Mildly elevated left ventricular end-diastolic pressure DISCUSSION AND RECOMMENDATION: continue medical therapy no intervention is needed Anesthesia Type: Conscious Sedation Estimated blood loss (mL): 15 ml Contrast Amount: 77 ml Total Radiation Dose: 610 mGy Post-Procedure Diagnosis Post-operative diagnosis: Coronary artery disease Hypertension Hyperlipidemia Diabetes mellitus JONI FOX MD Jul 23, 2018 12:47
--- NOTE | 2018-07-23 14:11 | NUR ---
PHONED DR. FOX FOR ORDERS ON PATIENT'S INSULIN PUMP. GAVE TELEPHONE ORDER TO KEEP PUMP ON HOLD AT THIS TIME AND TO RECHECK BLOOD SUGAR AFTER PATIENT EATS AND TO KEEP FLUIDS ON SLOW DRIP.
--- NOTE | 2018-07-23 15:01 | NUR ---
PATIENT'S BLOOD SUGAR CHECKED AT 1550 373. PATIENT PUTTING INSULIN PUMP BACK ON AT 1500. ENTERED HIS BLOOD SUGAR AND CARBS 15 AND PUMP GIVING 15.6 UNITS AND PUMP WILL PROMPT TO RECHECK BLOOD SUGAR IN 2 HOURS. WILL CONTINUE TO MONITOR PATIENT. Addendum: 07/23/18 at 1503 by KALYN CALDWELL RN BLOOD SUGAR CHECKED AT 1450 NOT 1550
== END 2018-07-23 17:00 | disposition home or self-care (01) ==
LOC: CATH 07:53 → SDC 12:22 → CATH 17:00
PROVIDERS: ATTEND Internal Medicine Cardiovascular Disease
DX: I25.10 Atherosclerotic heart disease of native coronary artery without angina pectoris (principal); I11.0 Hypertensive heart disease with heart failure; I50.9 Heart failure, unspecified; E78.5 Hyperlipidemia, unspecified; E11.9 Type 2 diabetes mellitus without complications; I65.23 Occlusion and stenosis of bilateral carotid arteries; N52.9 Male erectile dysfunction, unspecified; R60.9 Edema, unspecified; I27.20 Pulmonary hypertension, unspecified; I34.0 Nonrheumatic mitral (valve) insufficiency; E03.9 Hypothyroidism, unspecified; F32.9 Major depressive disorder, single episode, unspecified; F17.210 Nicotine dependence, cigarettes, uncomplicated; Z88.0 Allergy status to penicillin; Z88.5 Allergy status to narcotic agent; Z79.899 Other long term (current) drug therapy; Z86.73 Personal history of transient ischemic attack (TIA), and cerebral infarction without residual deficits
CPT/HCPCS: 36415; 71045; 80053; 80061; 82962; 85027; 85610; 85730; 87081; 93005; 93459

== ENCOUNTER → 2019-07-07 | Outpatient (CLI) | payer MEDICARE ==
[~2019-07-07] MED LIST changes: +LEVO50TA6 PO; +LOSA25TA41 PO; +METO-387 PO; +PANT40TA3 PO; +PREG100C PO; +VENL37.57 PO; +ZOLP10TA5 PO
== END ==
LOC: CARD 11:43
PROVIDERS: ATTEND Physician Assistant
DX: I25.10 Atherosclerotic heart disease of native coronary artery without angina pectoris (principal); I11.9 Hypertensive heart disease without heart failure; I65.23 Occlusion and stenosis of bilateral carotid arteries; E78.5 Hyperlipidemia, unspecified; E11.9 Type 2 diabetes mellitus without complications; Z79.4 Long term (current) use of insulin
CPT/HCPCS: 93306

== ENCOUNTER 2020-10-24 12:30 | Outpatient (RCR) | payer MEDICARE ==
[~2020-10-24 12:30] MED LIST changes: -METO-387 PO; +MTC10T PO; +MTP25TSR PO; -PANT40TA3 PO; +PANT40TA52 PO
== END 2021-01-22 | disposition home or self-care (01) ==
LOC: CARD 12:30
PROVIDERS: ATTEND Physician Assistant
DX: I49.9 Cardiac arrhythmia, unspecified (principal); I48.91 Unspecified atrial fibrillation
CPT/HCPCS: 93225; 93226

== ENCOUNTER → 2020-11-07 | Outpatient (CLI) | payer MEDICARE | LOC: CARD 09:00 | PROVIDERS: ATTEND Internal Medicine Cardiovascular Disease | DX: I11.9 Hypertensive heart disease without heart failure (principal) | CPT/HCPCS: 93306 ==

== ENCOUNTER → 2022-02-27 | Outpatient (CLI) | payer MEDICARE | LOC: CARD 10:30 | PROVIDERS: ATTEND Physician Assistant | DX: I11.9 Hypertensive heart disease without heart failure (principal) | CPT/HCPCS: 93306 ==

== ENCOUNTER → 2022-09-26 | Outpatient (CLI) | payer MEDICARE ==
[~2022-09-26] MED LIST changes: +CATHETER FLUSH 10 ML SYR IVP PRN; +REGADENOSON 0.4 MG/5 ML SYR (LEXISCAN) IV ONE
[2022-09-26 08:52] VITALS: BP 155/74
--- NOTE | 2022-09-26 11:29 | Cardiology Stress Test Report ---
Stress Test Report Date of Procedure/Referring: Date of Procedure: Sep 26, 2022 PCP No,Local Physician Admitting Physician Admitting Physician: Attending Physician: Joni Linares MD Indications: CAD Baseline Heart Rate: 82 Baseline Blood Pressure: Blood Pressure Systolic: 155 Blood Pressure Diastolic: 74 Baseline Vitals Vital Signs Date Time Temp Pulse Resp B/P (MAP) Pulse Ox O2 Delivery O2 Flow Rate FiO2 09/26/22 08:52 82 155/74 (101) 95 Baseline EKG: Baseline EKG: NSR Summary After explaining the procedure to the patient, he signed a consent and then brought to the stress nuclear laboratory. Patient received 0.4 mg Lexiscan for stress test, ECG, heart rate and blood pressure were monitored continuously. Resting and stress dose of radio tracer were injected, imaging was acquired and reviewed in short axis, horizontal long axis and vertical long axis views. TID: 1.1 SSS: 8 SDS: 6 EF: 33 Patient tolerated Lexiscan well Frequent PVCs and ventricular trigeminy persisted during test Diaphragmatic attenuation with reversible ischemia involving the mid to apical inferior wall and inferolateral wall Dilated left ventricle with diffuse left ventricular hypokinesia with ejection fraction 33% JONI LINARES MD Sep 26, 2022 11:29
== END ==
LOC: CARD 06:31
PROVIDERS: ATTEND Internal Medicine Cardiovascular Disease
DX: I11.9 Hypertensive heart disease without heart failure (principal); I25.9 Chronic ischemic heart disease, unspecified; J98.6 Disorders of diaphragm
CPT/HCPCS: 78452; 93017; A9502

== ENCOUNTER 2022-10-10 08:00 | Day surgery (SDC) | payer MEDICARE ==
[~2022-10-10] VITALS: Ht 191.8 cm; Wt 141.9 kg
[2022-10-10] VITALS (11 sets, daily range): BP systolic 98–186; BP diastolic 60–85
[2022-10-10 07:08] LABS: HEMATOCRIT 45 % (40-54); HEMOGLOBIN 14.7 g/dL (13.3-17.7); MEAN CORPUSCULAR HEMOGLOBIN 31 pg (25-34); MEAN CORPUSCULAR HGB CONC 33 g/dL (32-36); MEAN CORPUSCULAR VOLUME 94 fL (80-99); MEAN PLATELET VOLUME 9.3 fL (9.0-12.2); PLATELET COUNT 247 10^3/uL (130-400); WHITE BLOOD COUNT 11.1 10^3/uL (4.3-11.0)
[2022-10-10 07:26] LABS: INR 1.1 (0.8-1.4); PROTHROMBIN TIME PATIENT 14.2 SEC (12.2-14.7)
[2022-10-10 07:33] LABS: ALBUMIN 4.1 GM/DL (3.2-4.5); BILIRUBIN,TOTAL 0.4 MG/DL (0.1-1.0); CALCIUM 8.9 MG/DL (8.5-10.1); CREATININE SERUM 1.12 MG/DL (0.60-1.30); TOTAL PROTEIN 7.3 GM/DL (6.4-8.2)
--- NOTE | 2022-10-10 07:35 | Diagnostic Imaging Report ---
EXAMINATION: Chest 1 view HISTORY: ABN STRESS TEST COMPARISON: 07/23/2018 FINDINGS: Heart size and pulmonary vasculature are normal. Surgical changes from median sternotomy and CABG. The lungs are clear without consolidation, pleural effusion, or pneumothorax. The osseous structures are intact. IMPRESSION: 1. No acute radiographic abnormality in the chest. Dictated by: Dictated on workstation # [id number]
[~2022-10-10 08:00] MED LIST changes: +ASPI-808 PO; +ATOR80TA76 PO; +BUDE0.5A IH; +BUDE10.2 IH; -CATHETER FLUSH 10 ML SYR IVP PRN; +DICL75TA2 PO; +DULO60CA7 PO; +EZET10TA49 PO; +HEParin (CATH LAB) 2,000 ML IV ONE; +HYDR50TA76 PO; +IPRA3AMP31 IH; +LEVO50CA4 PO; +LIDOCAINE 1% INJ 20 ML VIAL ONE; +MIDAZOLAM 5 MG/5 ML (VERSED) VIAL ONE; +NS IV 1000 ML 1,000 ML IV SCH; +NS IV 1000 ML 1,000 ML ONE; +OXYC-556 PO; +POTA-51 PO; +PRAM0.257 PO; +PREG225C7 PO; +PREN-102 PO; +RANO10005 PO; -REGADENOSON 0.4 MG/5 ML SYR (LEXISCAN) IV ONE; +RT-ALBUINH INH; +SPIR25TA5 PO; +TIZA-186 PO; +VORT20TA PO; +ZOLP10TA PO; +fentaNYL INJ 100 MCG/2 ML AMP ONE
--- NOTE | 2022-10-10 08:03 | Cardiac Procedure Note-CS/ASA ---
Pre-Procedure Note Pre-Op Procedure Note Date of Available H&P: Oct 02, 2022 Date H&P Reviewed: Oct 10, 2022 Time H&P Reviewed: 08:02 History & Physical: H&P Reviewed, Patient Examed, No changes noted Pre-Operative Diagnosis: CAD Moderate Sedation PreProcedure Time 08:02 ASA Score 3 Airway Lungs Heart ASA score ASA 1: a normal healthy patient ASA 2: a patient with a mild systemic disease (mid diabetes, controlled hypertension, obesity ASA 3: a patient with a severe systemic disease that limits activity (angina, COPD, prior Myocardial infarction) ASA 4: a patient with an incapacitating disease that is a constant threat to life (CHF, renal failure) ASA 5: a moribund patient not expected to survive 24 hrs. (ruptured aneurysm) ASA 6: a declared brain- patient whose organs are being harvested. For emergent operations, add the letter E after the classification Mallampati Classification Grade 3 Sedation Plan Analgesia, Amnesia, Plan communicated to team members, Discussed options with patient/fam, Discussed risks with patient/fam The patient is an appropriate candidate to undergo the planned procedure, sedation, and anesthesia. The patient immediately re-assessed prior to indication. JONI FOX MD Oct 10, 2022 08:02
[2022-10-10] MEDS ORDERED: SILD50TA48 PO (08:04)
[2022-10-10] MEDS ORDERED: [UNRECOGNIZED DRUG - CODE] SQ (08:04)
[2022-10-10] MEDS ORDERED: INSU100V16 SQ (08:04)
[2022-10-10] MEDS ORDERED: SULF-221 PO (08:35)
--- NOTE | 2022-10-10 09:07 | Discharge Inst-Post CATH ---
Discharge Inst-CATH/EP Problems Reviewed?: Yes Post Cardiac Cath/EP D/C Inst Follow Up/Plan Appointment with Dr. Linares's office in 2 to 4 weeks <b>CARDIAC CATH/EP PROCEDURE DISCHARGE INSTRUCTIONS</b> ACTIVITY * Go Home directly and rest. * Limit activity of the leg (or wrist if it was used) for 7 days including aer obics, swimming, jogging, bicycling, etc. * Restrict stair-climbing for 7 days if possible, if not, climb up with your non-cath leg, then bring together on the same step. * Avoid lifting, pushing, pulling or excessive movement of the affected extremi ty for 7 days. * Customary sexual activity may be resumed after 2 days-use caution not to use a position that strains or causes pain to the affected extremity. * No driving for 24 hours. * NO SMOKING. * Avoid straining for bowel movements for 7 days. * Gentle walking on level ground is allowed. * Returning to work will depend on the type of procedure and the results. Your doctor will discuss this with you. CALL YOUR DOCTOR FOR ANY OF THE FOLLOWING: *If bleeding from the puncture site occurs- Apply gentle pressure to site with clean cloth and call your doctor or EMS. * If a knot or lump forms under the skin, increases in size, or causes pain. * If bruising appears to be worsening or moving further down your leg instead of disappearing. * Temperature above 101 F. CARE OF YOUR GROIN INCISION; * Bruising or purple discoloration of the skin near the puncture site is common. * You may shower only, no bathtub bathing for 5 days. Be careful to avoid slipping as your leg may feel stiff. * If a closure device was used on your femoral artery, please see the attached guide regarding care of the device and your leg. * Leave dressing on FOR 24 hours. CARE OF YOUR WRIST INCISION; * Bruising or purple discoloration of the skin near the puncture site is common. * You may shower. * DO NOT submerge wrist. * Leave dressing on FOR 24 hours. JONI LINARES MD Oct 10, 2022 09:07
[2022-10-10] MEDS ORDERED: NS IV 1000 ML 1,000 ML IV SCH (09:15)
[2022-10-10] MEDS ORDERED: PATIENT MAY USE OWN MEDS, ALL PO SCH (09:15)
--- NOTE | 2022-10-10 09:15 | Cardiac Cath Report ---
Cardiac Cath Report Physician (s)/Web Marketing Strategist (s) Physician JONI FOX MD Pre-Procedure Diagnosis Pre-Procedure Diagnosis: CAD Post-Procedure Note Procedure Start Date: Oct 10, 2022 Name of Procedure: Left heart catheterization Vein graft angiogram DECKER angiogram Bilateral lower extremities runoff Second order Additional imaging x2 Findings/Procedure Note PROCEDURE NOTE: 57-year-old gentleman with history of diabetes mellitus, coronary artery dise ase, CABG, had an abnormal stress test, had nonhealing toe ulcer and scheduled for amputation of the toes. Scheduled for cardiac catheterization and peripheral angiogram. After explaining the procedure to the patient, all pros and cons were explained, all questions were answered. The patient signed the consent and then he was placed in the cardiac catheterization laboratory. Groin was prepped in SL fashion local anesthesia was used. Sheath placed in the left femoral artery. Trisha' right and left catheter were used to access the coronary system. Trisha right catheter was used to engage the vein graft and the DECKER and angiogram was done then it was prolapsed to the left ventricular cavity, pressure was measured, pullback LV to aorta was done. Then I used the catheter to cross over and exchanged the catheter over a long Storq wire into straight catheter advanced to the right common femoral artery and did runoff through the right leg then did DSA imaging at the level of the trifurcation and repeated DSA imaging at the level of the foot then the catheter was pulled back and placed at the left common iliac artery and angiogram was done then I did runoff to the left leg through the sheath then did DSA imaging at the level of the trifurcation with the injection through the sheath. At the end of the procedure the sheath was removed. Closure device was deployed FINDINGS: Hemodynamics LV 139/16, end-diastolic pressure of 16 Aorta 138/54 mean of 79 ANATOMY: Left Main has moderate stenosis Left Anterior Descending is occluded at the midportion, the DECKER to the LAD is patent Left Circumflex is occluded at the midportion, vein graft to the obtuse marginal branch is patent with excellent flow distally Right Coronary Artery is dominant artery, occluded at the midportion, vein graft to the right coronary artery is patent with diffuse ectasia and small vessel disease LV Gram was not done, pressure was measured Vein graft angiogram: Vein graft to the right coronary artery has diffuse ectasia, slow flow due to small vessel disease distally nonobstructive disease Vein graft to the obtuse marginal branch has 40 to 50% proximal stenosis otherwise no obstructive disease, has not changed over the past 5 years DECKER to LAD is patent with excellent flow distally Peripheral angiogram Right lower extremity: Right common iliac and common femoral artery has no obstructive disease Right SFA and popliteal artery has mild disease nonobstructive disease Right anterior tibial artery, posterior tibial artery and peroneal arteries are patent down to the foot Left lower extremity: Left common iliac and common femoral artery has no obstructive disease Left SFA and popliteal artery has mild disease nonobstructive disease Left anterior tibial artery has mild disease, posterior tibial artery and peroneal artery are patent. CONCLUSION: Severe [place] coronary artery disease with patent DECKER to LAD, vein graft to the obtuse marginal branch and vein graft to the right coronary artery. There is small vessel disease distally with slow flow in the right coronary artery nonobstructive disease No significant obstructive disease in the lower extremities down to the foot bilaterally DISCUSSION AND RECOMMENDATION: Nonhealing ulcer due to small vessel disease, patient has small vessel disease in the coronary and peripheral arterial disease, maximizing medical therapy is recommended no intervention is warranted Anesthesia Type: Conscious Sedation Estimated blood loss (mL): 20 ml Contrast Amount: 75 ml Total Radiation Dose: 898 mGy Post-Procedure Diagnosis Post-operative diagnosis: Coronary artery disease Peripheral arterial disease Hypertension Hyperlipidemia JONI FOX MD Oct 10, 2022 09:15
== END 2022-10-10 13:32 | disposition home or self-care (01) ==
LOC: CATH 08:00 → SDC 09:16 → CATH 13:32
PROVIDERS: ATTEND Internal Medicine Cardiovascular Disease
DX: I25.10 Atherosclerotic heart disease of native coronary artery without angina pectoris (principal); E11.51 Type 2 diabetes mellitus with diabetic peripheral angiopathy without gangrene; E11.621 Type 2 diabetes mellitus with foot ulcer; L97.419 Non-pressure chronic ulcer of right heel and midfoot with unspecified severity; L97.519 Non-pressure chronic ulcer of other part of right foot with unspecified severity; E78.2 Mixed hyperlipidemia; I11.0 Hypertensive heart disease with heart failure; I08.1 Rheumatic disorders of both mitral and tricuspid valves; I65.29 Occlusion and stenosis of unspecified carotid artery; I50.32 Chronic diastolic (congestive) heart failure; E66.01 Morbid (severe) obesity due to excess calories; T46.5X5A Adverse effect of other antihypertensive drugs, initial encounter; R60.0 Localized edema; M54.9 Dorsalgia, unspecified; R05.9 Cough, unspecified; R20.0 Anesthesia of skin; E03.9 Hypothyroidism, unspecified; F32.A Depression, unspecified; Z87.891 Personal history of nicotine dependence; Z68.38 Body mass index [BMI] 38.0-38.9, adult; Z79.899 Other long term (current) drug therapy; Z95.5 Presence of coronary angioplasty implant and graft; Z79.890 Hormone replacement therapy; Z79.4 Long term (current) use of insulin
CPT/HCPCS: 36246; 36248; 71045; 75716; 80053; 85027; 85610; 85730; 87081; 93005; 93459; C1760; C1769; C1887; C1894; 36415